=== PATIENT | female | born 1935 | race Caucasian/White ===

== ENCOUNTER 2018-09-14 15:03 | Inpatient (IN) | payer MEDICARE, OTHER ==
[~2018-09-14] VITALS: Ht 157.5 cm; Wt 72.7 kg
[~2018-09-14 15:03] MED LIST: ASPI-650; CARV25TA79; CYCL10TA7; DICL25TA; FOLI-49; METF100010; NIFE30TA; NIFE60TA18; SIMV20TA; VALS80TA2; [UNRECOGNIZED DRUG - CODE]
[2018-09-14] MEDS ORDERED: SODIUM CHLORIDE 0.9% 1L BAG IV* STA (15:10)
[2018-09-14] MEDS ORDERED: DILTIAZEM-D5W 125MG/125ML DRIP 125 ML IV STA (15:10)
[2018-09-14] MEDS ORDERED: CEFEPIME 2GM/50 ML (PMX) 50 ML IVPB STA (15:10)
[2018-09-14] MEDS ORDERED: ONDANSETRON 4 MG INJ IV STA (15:10)
[2018-09-14] MEDS ORDERED: ACETAMINOPHEN 325 MG TAB PO STA (15:10)
[2018-09-14] MEDS ORDERED: DILTIAZEM 25 MG INJ IV ONE (15:30)
[2018-09-14] MEDS ORDERED: VANCOMYCIN 1 GM (PMX) 250 ML IVPB ONE (15:30)
[2018-09-14] MEDS ORDERED: IBUPROFEN 800 MG TAB PO ONE (15:30)
--- NOTE | 2018-09-14 15:42 | ERD ---
ER Documentation Chief Complaint Chief Complaint pt kody from [facility] HPI This is an 82-year-old female was brought into the emergency department by EMS. The patient has a history of kxk-hcjnifc-wlbjxwvfj diabetes mellitus and hypertension. Over the past 2 days the patient had a productive cough generalized myalgias and difficulty breathing. She had a tactile fever with shaking and chills. She said no recent hospitalizations. She has no history of dementia and lives with her family. She is able to to attend her activities of daily living. She has not had any recent sick contacts. She has had increased frequency urgency and dysuria. Her vrimjpda-gu-vtn states that she is prone to frequent urinary tract infections. She denies any abdominal pain. She did experience palpitations just prior to arrival. She has had no chest pain or pressure. ROS All systems reviewed and are negative except as per history of present illness. Medications Home Meds Reported Medications Rosiglitazone Maleate* (Avandia*) 8 Mg Tablet 10/25/10 Cyclobenzaprine Hcl* (Cyclobenzaprine Hcl*) 10 Mg Tablet 10/25/10 Diclofenac Sodium* (Voltaren*) 25 Mg Tablet. 10/25/10 Carvedilol* (Carvedilol*) 25 Mg Tablet 10/25/10 Valsartan* (Diovan*) 80 Mg Tablet 10/25/10 Simvastatin* (Zocor*) 20 Mg Tablet 10/25/10 Folic Acid* (Folic Acid*) 1 Mg Tablet 10/25/10 Metformin Hcl* (Metformin Hcl*) 1,000 Mg Tablet 10/25/10 Nifedipine (Nifedipine XL) 30 Mg/Bottle Tab.osm.24 10/25/10 Aspirin (Aspirin) 81 Mg Tablet 10/25/10 Nifedipine* (Nifedipine ER*) 60 Mg Tablet.sa 10/25/10 Allergies Allergies: Coded Allergies: No Known Allergy (Verified Allergy, Unknown, 10/25/10) PMhx/Soc History of Surgery: Yes (HERNIA REPAIR 10 YRS) Anesthesia Reaction: No Hx Neurological Disorder: No Hx Respiratory Disorders: No Hx Cardiac Disorders: Yes (htn) Hx Psychiatric Problems: No Hx Miscellaneous Medical Probl: Yes (dm, uti) Hx Alcohol Use: No Hx Substance Use: No Hx Tobacco Use: No Smoking Status: Never smoker Physical Exam Vitals Vital Signs Date Temp Pulse Resp B/P (MAP) Pulse Ox O2 O2 Flow FiO2 Time Delivery Rate 09/14/18 102.3 15:37 09/14/18 102.3 15:37 09/14/18 115 27 116/84 98 Nasal 2.0 15:23 (95) Cannula 09/14/18 Nasal 2 15:16 Cannula 09/14/18 102.6 121 21 100/72 93 15:06 (81) Physical Exam Constitutional:Well-developed. Well-nourished. HEENT:Normocephalic. Atraumatic.Pupils were equal round reactive to light. Dry mucous membranes.No tonsillar exudates. Neck: No nuchal rigidity. No lymphadenopathy. No posterior cervical spine tenderness or step-offs. Respiratory: Not using accessory muscles of respiration.Lungs were clear to auscultation bilaterally. No rhonchi. No rales. No wheezing. Cardiovascular: Tachycardic with irregular regular rhythm..No murmurs. No rubs were appreciated.S1, S2 normal. Distal pulses are palpable 2+ bilaterally. GI: Abdomen was soft. Nontender. Non Distended. No pulsatile abdominal masses or bruits. No rebound. No guarding. Bowel sounds were present and normal. Muscle skeletal: Full range of motion of both the upper and lower extremities bilaterally.Normal muscle tone.No assymetrical calf tenderness or swelling. Skin: Warm to the touch. No petechia, no purpura. No lesions on the palms or the soles of the feet. No maculopapular rash. NEURO: Patient was alert, awake, orientated x3.No facial droop. Gait observed and normal with no ataxia.Speech had regular rate and rhythm. No focal neurological deficits. Result Diagram: 09/14/18 1533 09/14/18 1533 Results 24 hrs Laboratory Tests Test 09/14/18 15:33 09/14/18 15:34 White Blood Count 10.4 10^3/ul Red Blood Count 3.31 10^6/ul Hemoglobin 10.6 g/dl Hematocrit 32.3 % Mean Corpuscular Volume 97.6 fl Mean Corpuscular Hemoglobin 32.0 pg Mean Corpuscular Hemoglobin Concent 32.8 g/dl Red Cell Distribution Width 12.8 % Platelet Count 234 10^3/UL Mean Platelet Volume 8.8 fl Immature Granulocytes % 0.400 % Neutrophils % 83.8 % Lymphocytes % 9.2 % Monocytes % 6.5 % Eosinophils % 0.0 % Basophils % 0.1 % Nucleated Red Blood Cells % 0.0 /100WBC Immature Granulocytes # 0.040 10^3/ul Neutrophils # 8.7 10^3/ul Lymphocytes # 1.0 10^3/ul Monocytes # 0.7 10^3/ul Eosinophils # 0.0 10^3/ul Basophils # 0.0 10^3/ul Nucleated Red Blood Cells # 0.0 10^3/ul Prothrombin Time 13.9 Sec Prothrombin Time Ratio 1.1 INR International Normalized Ratio 1.06 Activated Partial Thromboplast Time 26.3 Sec Sodium Level 140 mmol/L Potassium Level 4.1 mmol/L Chloride Level 107 mmol/L Carbon Dioxide Level 23 mmol/L Anion Gap 10 Blood Urea Nitrogen 20 mg/dl Creatinine 0.84 mg/dl Est Glomerular Filtrat Rate mL/min mL/min Glucose Level 179 mg/dl Calcium Level 9.1 mg/dl Total Bilirubin 0.3 mg/dl Direct Bilirubin 0.00 mg/dl Indirect Bilirubin 0.3 mg/dl Aspartate Amino Transf (AST/SGOT) 26 IU/L Alanine Aminotransferase (ALT/SGPT) 11 IU/L Alkaline Phosphatase 78 IU/L Troponin I 0.066 ng/ml Total Protein 7.6 g/dl Albumin 3.8 g/dl Globulin 3.80 g/dl Albumin/Globulin Ratio 1.00 POC Venous Lactate 2.2 mmol/L Current Medications Medications Dose Sig/Desiree Start Time Status Last (Trade) Ordered Route PRN Stop Time Admin Dose Reason Admin Sodium 2,400 ml BOLUS OVER 2 09/14/18 DC 09/14/18 Chloride HOURS STAT 15:10 15:36 (NS) IV* 09/14/18 15:15 1,000 mg ONCE STAT 09/14/18 DC 09/14/18 Acetaminophen PO 15:10 15:37 (Tylenol 09/14/18 15:15 Tab) Ondansetron 4 mg ONCE STAT 09/14/18 DC 09/14/18 HCl (Zofran IV 15:10 15:38 Inj) 09/14/18 15:15 Cefepime HCl 50 ml @ ONCE STAT 09/14/18 DC 100 mls/hr IVPB 15:10 09/14/18 15:39 Vancomycin 250 ml @ ONCE ONCE 09/14/18 HCl 125 mls/hr IVPB 15:30 09/14/18 17:29 Ibuprofen 800 mg ONCE ONCE 09/14/18 DC 09/14/18 (Motrin) PO 15:30 15:37 09/14/18 15:31 Diltiazem 20 mg ONCE ONCE 09/14/18 DC 09/14/18 HCl IV 15:30 15:38 (Cardizem Iv) 09/14/18 15:31 Diltiazem 125 ml @ 5 ONCE STAT 09/14/18 HCl mls/hr IV 15:10 09/15/18 16:09 Procedures/MDM Patient's infectious symptoms have not stabilized and the patient is at risk of rapid decompensation. The patient will be admitted for careful hydration, antibiotic therapy, and infectious source control. Severe Sepsis Assessment: Infectious Source: pyleonephritis End organ damage indicated by: Lactate > 2.0 mmol/L Severe Sepsis Managment: Blood Cultures X 2 before broad spectrum antibiotics initiated within 3 hours of recognition. 30 ml/kg NS bolus Completed Initial Lactate: 2.2 Repeat Lactate pending I considered further perfusion assessment with CVP measurement, SCVO2, bedside ultrasound volume assessment, passive leg raise, trial of further fluid bolus. And preceded with IV fluids 12 Lead EKG tracing ordered and reviewed by myself showed: Tachycardic with irregular regular rhythm at 121 bpm and no arrhythmia. FL interval not appreciated as there were no P waves. QRS duration normal. No ST segment elevation No ST segment depression. No changes consistent with acute ischemia. The patient has no underlying history of atrial fibrillation. The patient was also febrile which could be contributing to her tachycardia with underlying sepsis. She did receive 20 mg of Cardizem intravenously and was placed on a Cardizem drip. A 1 view chest radiograph on reviewed by myself the radiologist indicate the following: Shallow lung volumes with bilateral interstitial prominence, suggestive of mild vascular congestion. Possible small left pleural effusion. Additional bibasilar opacities, left greater than right, which may represent atelectasis however pneumonia not excluded. Aortic atherosclerosis. The patient had artery received IV antibiotics for sepsis. The patient was also unable to provide a urine sample and therefore the family did agree to straight cath as her symptoms also were suggestive of a possible urinary tract infection. The patient will be admitted in serious condition to the hospitalist Dr. Gallo. Critical Care: Time: 70 minutes Treatments/Evaluations: Close monitoring and treatment of unstable vital signs, cardiorespiratory, and neurologic status, while maintaining tight balance of fluid, respiratory, and cardiac interventions. Time does not include performing any of the above billable procedures. Departure Diagnosis: Primary Impression: Atrial fibrillation with RVR Additional Impressions: Sepsis Sepsis type: sepsis due to unspecified organism Qualified Codes: A41.9 - Sepsis, unspecified organism Pneumonia Pneumonia type: due to unspecified organism Laterality: bilateral Lung location: unspecified part of lung Qualified Codes: J18.9 - Pneumonia, unspecified organism Condition: Serious MATTHEW BILL MD Sep 14, 2018 15:42
[2018-09-14] MEDS ORDERED: ONDANSETRON 4 MG INJ IV PRN ×2 (17:30→19:30)
[2018-09-14] MEDS ORDERED: ACETAMINOPHEN 325 MG TAB PO PRN ×2 (17:30→19:30)
[2018-09-14] MEDS ORDERED: SOD CHLORIDE 0.9% 1,000 ML IV STA (18:31)
[2018-09-14] MEDS: SOD CHLORIDE 0.9% 1,000 ML IV SCH (19:11)
--- NOTE | 2018-09-14 19:11 | HP ---
Date/Time of Note Date/Time of Note DATE: 09/14/18 TIME: 19:06 Assessment/Plan VTE Prophylaxis Pharmacological prophylaxis: LMWH Lines/Catheters IV Catheter Type (from Nrs): [facility] Assessment/Plan Hospital Course 1. A. fib with RVR-resolved Patient is status post Cardizem drip with resolution Monitor in telemetry History of arrhythmia A. fib likely secondary to stress from sepsis 2D echo 2. Sepsis with fever, tachycardia and hypotension secondary to UTI and or pneumonia Rocephin and azithromycin Follow-up cultures IV fluids 3. Normocytic anemia likely secondary chronic disease Monitor 4. Diabetes Schedule insulin and sliding scale 5. History hypertension BP currently low secondary to sepsis, hold home meds Prophylaxis: Lovenox Result Diagram: 09/14/18 1533 09/14/18 1533 Results 24hrs Laboratory Tests Test 09/14/18 15:33 09/14/18 15:34 09/14/18 17:17 09/14/18 17:49 White Blood Count 10.4 Red Blood Count 3.31 L Hemoglobin 10.6 L Hematocrit 32.3 L Mean Corpuscular 97.6 Volume Mean Corpuscular 32.0 Hemoglobin Mean Corpuscular 32.8 Hemoglobin Concen t Red Cell 12.8 Distribution Width Platelet Count 234 Mean Platelet 8.8 Volume Immature 0.400 Granulocytes % Neutrophils % 83.8 H Lymphocytes % 9.2 L Monocytes % 6.5 Eosinophils % 0.0 Basophils % 0.1 Nucleated Red 0.0 Blood Cells % Immature 0.040 H Granulocytes # Neutrophils # 8.7 H Lymphocytes # 1.0 Monocytes # 0.7 Eosinophils # 0.0 Basophils # 0.0 Nucleated Red 0.0 Blood Cells # Prothrombin Time 13.9 Prothrombin Time 1.1 Ratio INR International 1.06 Normalized Ratio Activated 26.3 Partial Thrombopl ast Time Sodium Level 140 Potassium Level 4.1 Chloride Level 107 Carbon Dioxide 23 Level Anion Gap 10 Blood Urea 20 Nitrogen Creatinine 0.84 Est Glomerular Filtrat Rate mL/min Glucose Level 179 Calcium Level 9.1 Total Bilirubin 0.3 Direct Bilirubin 0.00 Indirect 0.3 Bilirubin Aspartate Amino 26 Transf (AST/SGOT) Alanine 11 L Aminotransferase (ALT/SGPT) Alkaline 78 Phosphatase Troponin I 0.066 Total Protein 7.6 Albumin 3.8 Globulin 3.80 H Albumin/Globulin 1.00 Ratio POC Venous 2.2 *H 1.6 Lactate Urine Color YELLOW Urine Clarity SLIGHTLY CLOUDY A Urine pH 5.0 Urine Specific 1.019 [place] Urine Ketones NEGATIVE Urine Nitrite NEGATIVE Urine Bilirubin NEGATIVE Urine 1+ H Urobilinogen Urine Leukocyte 2+ H Esterase Urine Microscopic 9 H RBC Urine Microscopic 49 H WBC Urine Squamous FEW Epithelial Cells Urine Mucus FEW A Urine Hemoglobin 1+ H Urine Glucose NEGATIVE Urine Total 1+ H Protein HPI/ROS Admit Date/Time Admit Date/Time September 14, 2018 Hx of Present Illness Patient is an 82-year-old female history of yut-wvmsyib-vprszisci diabetes, hypertension, patient presents with several weeks of cough and pleuritic chest pain, [place] developed shortness of breath. Patient came to the ER where she was found to be in A. fib with RVR, patient was started on Cardizem and patient converted to sinus rhythm. Chest x- ray shows possible pneumonia UA is positive but patient denies dysuria or frequency. Patient reports flank symptoms the past several weeks patient has no other complaints at this time and shortness of breath has improved. ROS Constitutional: no complaints, improved Eyes: no complaints ENT: no complaints Respiratory: no complaints, shortness of breath Gastrointestinal: no complaints Genitourinary: no complaints Musculoskeletal: no complaints Skin: no complaints Neurologic: no complaints Endocrine: no complaints Lymphatic: no complaints Psychological: no complaints, nl mood/affect Immunologic: no complaints PMH/Family/Social Past Medical History Diabetes, hypertension Medications Current Medications Diltiazem HCl 125 ml @ 5 mls/hr ONCE STAT IV ; Start 09/14/18 at 15:10; Stop 09/15/18 at 16:09 Ondansetron HCl (Zofran Inj) 4 mg ER BRIDGE PRN IV NAUSEA/VOMITING; Start 09/14/18 at 17:30; Stop 09/15/18 at 17:29 Acetaminophen (Tylenol Tab) 650 mg ER BRIDGE PRN PO .MILD PAIN 1-3 OR TEMP; Start 09/14/18 at 17:30; Stop 09/15/18 at 17:29 Sodium Chloride 1,000 ml @ 1,000 mls/hr Q1H STAT IV Last administered on 09/14/18at 18:36; Admin Dose 1,000 MLS/HR; Start 09/14/18 at 18:31; Stop 09/14/18 at 19:30 Coded Allergies: No Known Allergy (Verified Allergy, Unknown, 10/25/10) Past Surgical History Hernia surgery Family History Significant Family History: no pertinent family hx Social History Alcohol Use: rarely Smoking Status: Never smoker Drug Use: none Exam/Review of Systems Vital Signs Vitals Vital Signs Date Temp Pulse Resp B/P (MAP) Pulse Ox O2 O2 Flow FiO2 Time Delivery Rate 09/14/18 98.9 79 25 86/49 (61) 97 Nasal 18:41 Cannula 09/14/18 2.0 17:19 Exam Constitutional: alert, oriented Respiratory: clear to auscultation Cardiovascular: regular rate and rhythm Gastrointestinal: soft; No distended Musculoskeletal: nl extremities to inspection HAYLEY ARREDONDO Sep 14, 2018 19:11
[2018-09-14] MEDS ORDERED: CEFTRIAXONE 1 GM/50 ML (PMX) 50 ML IVPB SCH (19:30)
[2018-09-14] MEDS ORDERED: DOCUSATE SODIUM 100 MG CAP PO PRN (19:30)
[2018-09-14] MEDS ORDERED: NACL 0.9% 3 ML SYG IV SCH (19:30)
[2018-09-14] MEDS ORDERED: AZITHROMYCIN 500MG/NS (PMX) 250 ML IVPB SCH (20:00)
[2018-09-14 21:12] VITALS: PULSE 68
[2018-09-14 21:13] VITALS: Ht 157.5 cm; Wt 72.7 kg
[2018-09-14 21:37] VITALS: BP 116/67; PULSE 67; RESP 22
[2018-09-14] MEDS: HYDROCODONE/APAP (5/325) TAB PO PRN (22:07)
[2018-09-14 23:12] VITALS: PULSE 66
[2018-09-14] MEDS: INSULIN ASPART [NOVOLOG] 3 ML PEN SC SCH (23:28)
[2018-09-14] MEDS: morphine 2 MG INJ IV PRN (23:33)
[2018-09-14] MEDS ORDERED: ALBUTEROL/IPRATROPIUM (NEB) 3 ML AMP HHN STA (23:46)
[2018-09-15] VITALS (55 sets, daily range): BP systolic 52–136; BP diastolic 35–105; PULSE 47–82; RESP 13–27
[2018-09-15] MEDS ORDERED: NITROGLYCERIN (SL) 0.4 MG TAB SL PRN
[2018-09-15] MEDS ORDERED: SOD CHLORIDE 0.9% 500 ML IV ONE
[2018-09-15] MEDS ORDERED: ALBUTEROL/IPRATROPIUM (NEB) 3 ML AMP HHN PRN ×2
[2018-09-15] MEDS ORDERED: NA BICARBONATE 8.4% 50 ML SYG IV STA ×2 (00:06→12:37)
[2018-09-15] MEDS ORDERED: PIPER-TAZO 3.375 GM IV (PMX) 100 ML IVPB SCH (00:30)
[2018-09-15] MEDS: PIPER-TAZO 2.25 GM/NS 50 ML IVPB SCH ×4 (00:33→17:37)
[2018-09-15] MEDS: ALBUTEROL/IPRATROPIUM (NEB) 3 ML AMP HHN SCH ×4 (01:20→20:56)
[2018-09-15] MEDS: ACCU-CHEK XX SCH (01:41)
[2018-09-15] MEDS ORDERED: HEPARIN 25000 UNITS/250 ML 250 ML IV SCH (02:00)
[2018-09-15] MEDS ORDERED: METHYLPREDNISOLONE 125 MG INJ IV ONE (02:00)
[2018-09-15] MEDS ORDERED: HEPARIN 1000 UNITS/ML 10 ML INJ IV PRN (02:00)
[2018-09-15] MEDS ORDERED: INSULIN ASPART [NOVOLOG] 3 ML PEN SC ONE (02:00)
[2018-09-15] MEDS ORDERED: HEPARIN 1000 UNITS/ML 10 ML INJ IV ONE (02:00)
[2018-09-15] MEDS ORDERED: HEPARIN 25000 UNITS/250 ML 250 ML ONE (02:06)
--- NOTE | 2018-09-15 02:08 | PN ---
Date/Time of Note Date/Time of Note DATE: 09/15/18 TIME: 02:08 Assessment/Plan VTE Prophylaxis Pharmacological prophylaxis: other Lines/Catheters IV Catheter Type (from [facility]): Peripheral IV Urinary Cath still in place: No Assessment/Plan Hospital Course Notified by nurse patient had some chest pain and shortness of breath. Trop onin, EKG, chest x-ray was done. Patient also reported to be hypotensive, small bolus given. Troponin was positive, heparin drip started. Recommending cardiology consult in the a.m. .nitro as needed and tolerated Chest x-ray did show some signs of worsening edema which could be the cause of patient's shortness of breath, however patient's lactic acid jumped up to 7.9 likely due to hypotension (sbp 80's) with evidence of pneumonia, patient's creatinine also worsened, BNP is elevated. We will need to monitor respiratory status and be given 1 dose of steroids to help with wheezing as well as initiating breathing treatments. At this time will continue very gentle hydration as patient's hypotension will need to be addressed first. Patient on simple mask. Result Diagram: 09/14/18 1533 09/15/18 0053 Results 24hrs Laboratory Tests Test 09/14/18 15:33 09/14/18 15:34 09/14/18 17:17 09/14/18 17:49 White Blood Count 10.4 Red Blood Count 3.31 L Hemoglobin 10.6 L Hematocrit 32.3 L Mean Corpuscular 97.6 Volume Mean Corpuscular 32.0 Hemoglobin Mean Corpuscular 32.8 Hemoglobin Concen t Red Cell 12.8 Distribution Width Platelet Count 234 Mean Platelet 8.8 Volume Immature 0.400 Granulocytes % Neutrophils % 83.8 H Lymphocytes % 9.2 L Monocytes % 6.5 Eosinophils % 0.0 Basophils % 0.1 Nucleated Red 0.0 Blood Cells % Immature 0.040 H Granulocytes # Neutrophils # 8.7 H Lymphocytes # 1.0 Monocytes # 0.7 Eosinophils # 0.0 Basophils # 0.0 Nucleated Red 0.0 Blood Cells # Prothrombin Time 13.9 Prothrombin Time 1.1 Ratio INR International 1.06 Normalized Ratio Activated 26.3 Partial Thrombopl ast Time Sodium Level 140 Potassium Level 4.1 Chloride Level 107 Carbon Dioxide 23 Level Anion Gap 10 Blood Urea 20 Nitrogen Creatinine 0.84 Est Glomerular Filtrat Rate mL/min Glucose Level 179 Calcium Level 9.1 Total Bilirubin 0.3 Direct Bilirubin 0.00 Indirect 0.3 Bilirubin Aspartate Amino 26 Transf (AST/SGOT) Alanine 11 L Aminotransferase (ALT/SGPT) Alkaline 78 Phosphatase Troponin I 0.066 Total Protein 7.6 Albumin 3.8 Globulin 3.80 H Albumin/Globulin 1.00 Ratio POC Venous 2.2 *H 1.6 Lactate Urine Color YELLOW Urine Clarity SLIGHTLY CLOUDY A Urine pH 5.0 Urine Specific 1.019 [place] Urine Ketones NEGATIVE Urine Nitrite NEGATIVE Urine Bilirubin NEGATIVE Urine 1+ H Urobilinogen Urine Leukocyte 2+ H Esterase Urine Microscopic 9 H RBC Urine Microscopic 49 H WBC Urine Squamous FEW Epithelial Cells Urine Mucus FEW A Urine Hemoglobin 1+ H Urine Glucose NEGATIVE Urine Total 1+ H Protein Test 09/14/18 19:48 09/14/18 22:12 09/14/18 23:37 09/15/18 00:53 Lactic Acid Level 1.2 7.9 *H Bedside Glucose 199 Blood Gas Blood arterial Specimen Source Arterial Blood 09/14/2018 11:43: Date Drawn 22 PM Arterial Blood pH 6.996 *L (Temp corrected) Arterial Blood 42.0 pCO2 (Temp correct) Arterial Blood 113.2 H pO2 (Temp corrected) Arterial Blood 10.0 L HCO3 Arterial Blood -20.5 L Base Excess Arterial Blood 95.1 Oxygen Saturation Aroldo Test ACCEPTAB Arterial Blood Right Radial Gas Puncture Site Arterial 0.2 Blood Carboxyhemo globin Arterial Blood 0.1 Methemoglobin Blood Gas A-a O2 275.6 H Differential Oxyhemoglobin 94.8 Percent Blood Gas 37.0 Temperature Blood Gas Actual 32 Respiration Rate Blood Gas MASK - SIMPLE Modality FiO2 61.0 Blood Gas SAGE.D,R.N. Critical Value Read Back Blood Gas LÓPEZ CAREY Notified Whom Blood Gas 09/14/2018 11:57: Notified Time 06 PM Sodium Level 144 Potassium Level 4.8 Chloride Level 112 H Carbon Dioxide 19 L Level Anion Gap 13 Blood Urea 23 H Nitrogen Creatinine 1.22 H Est Glomerular Filtrat Rate mL/min Glucose Level 300 H Calcium Level 7.7 L Total Bilirubin 0.2 Direct Bilirubin 0.00 Indirect 0.2 Bilirubin Aspartate Amino 65 H Transf (AST/SGOT) Alanine 52 Aminotransferase (ALT/SGPT) Alkaline 77 Phosphatase Troponin I 1.790 *H B-Type 71160 H Natriuretic Peptide Total Protein 5.2 #L Albumin 2.5 #L Globulin 2.70 Albumin/Globulin 0.92 Ratio Test 09/15/18 01:40 Bedside Glucose 328 H Exam/Review of Systems Exam Vitals Vital Signs Date Temp Pulse Resp B/P (MAP) Pulse Ox O2 O2 Flow FiO2 Time Delivery Rate 09/15/18 95 61 01:14 09/15/18 10.0 01:10 09/15/18 98.6 68 19 124/71 01:00 (88) 09/14/18 Nasal 22:00 Cannula Intake and Output 09/14/18 09/14/18 09/15/18 1515:00 23:00 07:00 IntakeIntake Total 50 ml BalanceBalance 50 ml Results Results 24hrs Laboratory Tests Test 09/14/18 15:33 09/14/18 15:34 09/14/18 17:17 09/14/18 17:49 White Blood Count 10.4 Red Blood Count 3.31 L Hemoglobin 10.6 L Hematocrit 32.3 L Mean Corpuscular 97.6 Volume Mean Corpuscular 32.0 Hemoglobin Mean Corpuscular 32.8 Hemoglobin Concen t Red Cell 12.8 Distribution Width Platelet Count 234 Mean Platelet 8.8 Volume Immature 0.400 Granulocytes % Neutrophils % 83.8 H Lymphocytes % 9.2 L Monocytes % 6.5 Eosinophils % 0.0 Basophils % 0.1 Nucleated Red 0.0 Blood Cells % Immature 0.040 H Granulocytes # Neutrophils # 8.7 H Lymphocytes # 1.0 Monocytes # 0.7 Eosinophils # 0.0 Basophils # 0.0 Nucleated Red 0.0 Blood Cells # Prothrombin Time 13.9 Prothrombin Time 1.1 Ratio INR International 1.06 Normalized Ratio Activated 26.3 Partial Thrombopl ast Time Sodium Level 140 Potassium Level 4.1 Chloride Level 107 Carbon Dioxide 23 Level Anion Gap 10 Blood Urea 20 Nitrogen Creatinine 0.84 Est Glomerular Filtrat Rate mL/min Glucose Level 179 Calcium Level 9.1 Total Bilirubin 0.3 Direct Bilirubin 0.00 Indirect 0.3 Bilirubin Aspartate Amino 26 Transf (AST/SGOT) Alanine 11 L Aminotransferase (ALT/SGPT) Alkaline 78 Phosphatase Troponin I 0.066 Total Protein 7.6 Albumin 3.8 Globulin 3.80 H Albumin/Globulin 1.00 Ratio POC Venous 2.2 *H 1.6 Lactate Urine Color YELLOW Urine Clarity SLIGHTLY CLOUDY A Urine pH 5.0 Urine Specific 1.019 [place] Urine Ketones NEGATIVE Urine Nitrite NEGATIVE Urine Bilirubin NEGATIVE Urine 1+ H Urobilinogen Urine Leukocyte 2+ H Esterase Urine Microscopic 9 H RBC Urine Microscopic 49 H WBC Urine Squamous FEW Epithelial Cells Urine Mucus FEW A Urine Hemoglobin 1+ H Urine Glucose NEGATIVE Urine Total 1+ H Protein Test 09/14/18 19:48 09/14/18 22:12 09/14/18 23:37 09/15/18 00:53 Lactic Acid Level 1.2 7.9 *H Bedside Glucose 199 Blood Gas Blood arterial Specimen Source Arterial Blood 09/14/2018 11:43: Date Drawn 22 PM Arterial Blood pH 6.996 *L (Temp corrected) Arterial Blood 42.0 pCO2 (Temp correct) Arterial Blood 113.2 H pO2 (Temp corrected) Arterial Blood 10.0 L HCO3 Arterial Blood -20.5 L Base Excess Arterial Blood 95.1 Oxygen Saturation Aroldo Test ACCEPTAB Arterial Blood Right Radial Gas Puncture Site Arterial 0.2 Blood Carboxyhemo globin Arterial Blood 0.1 Methemoglobin Blood Gas A-a O2 275.6 H Differential Oxyhemoglobin 94.8 Percent Blood Gas 37.0 Temperature Blood Gas Actual 32 Respiration Rate Blood Gas MASK - SIMPLE Modality FiO2 61.0 Blood Gas SAGE.D,R.N. Critical Value Read Back Blood Gas LÓPEZ CAREY Notified Whom Blood Gas 09/14/2018 11:57: Notified Time 06 PM Sodium Level 144 Potassium Level 4.8 Chloride Level 112 H Carbon Dioxide 19 L Level Anion Gap 13 Blood Urea 23 H Nitrogen Creatinine 1.22 H Est Glomerular Filtrat Rate mL/min Glucose Level 300 H Calcium Level 7.7 L Total Bilirubin 0.2 Direct Bilirubin 0.00 Indirect 0.2 Bilirubin Aspartate Amino 65 H Transf (AST/SGOT) Alanine 52 Aminotransferase (ALT/SGPT) Alkaline 77 Phosphatase Troponin I 1.790 *H B-Type 26504 H Natriuretic Peptide Total Protein 5.2 #L Albumin 2.5 #L Globulin 2.70 Albumin/Globulin 0.92 Ratio Test 09/15/18 01:40 Bedside Glucose 328 H Medications Medication Current Medications Diltiazem HCl 125 ml @ 5 mls/hr ONCE STAT IV ; Start 09/14/18 at 15:10; Stop 09/15/18 at 16:09 Ondansetron HCl (Zofran Inj) 4 mg ER BRIDGE PRN IV NAUSEA/VOMITING; Start 09/14/18 at 17:30; Stop 09/15/18 at 17:29 Acetaminophen (Tylenol Tab) 650 mg ER BRIDGE PRN PO .MILD PAIN 1-3 OR TEMP; Start 09/14/18 at 17:30; Stop 09/15/18 at 17:29 Sodium Chloride 1,000 ml @ 60 mls/hr [id number] IV Last administered on 09/14/18at 19:11; Admin Dose 60 MLS/HR; Start 09/14/18 at 19:11 IV Flush (NS 3 ml) 3 ml PER PROTOCOL IV ; Start 09/14/18 at 19:30 Ondansetron HCl (Zofran Inj) 4 mg Q6H PRN IV NAUSEA/VOMITING; Start 09/14/18 at 19:30 Acetaminophen (Tylenol Tab) 650 mg Q6H PRN PO .PAIN 1-3 OR TEMP; Start 09/14/18 at 19:30 Acetaminophen/ Hydrocodone Bitart ([place] (5/325)) 1 tab Q6H PRN PO .MOD PAIN 4- 6 Last administered on 09/14/18at 22:07; Admin Dose 1 TAB; Start 09/14/18 at 19:30 Morphine Sulfate (morphine) 2 mg Q4H PRN IV .SEVERE PAIN 7-10 Last administered on 09/14/18at 23:33; Admin Dose 2 MG; Start 09/14/18 at 19:30 Docusate Sodium (Colace) 100 mg Q12H PRN PO .CONSTIPATION; Start 09/14/18 at 19:30 Zolpidem Tartrate (Ambien) 5 mg QHS PRN PO .INSOMNIA; Start 09/14/18 at 19:30 Aspirin (Aspirin) 81 mg DAILY PO ; Start 09/15/18 at 09:00 Diagnostic Test (Pha) (Accu-Chek) 1 ea 02 XX Last administered on 09/15/18at 01:41; Admin Dose 1 EA; Start 09/15/18 at 02:00 Insulin Aspart (Novolog Insulin Pen) NOVOLOG *MILD* ALGORITHM WITH MEALS BEDTIME SC Last administered on 09/14/18at 23:28; Admin Dose 1 UNIT; Start 09/14/18 at 21:00 Budesonide (Pulmicort (Neb)) 0.5 mg BID RESP THERAPY HHN ; Start 09/15/18 at 09:00 Albuterol/ Ipratropium (Duoneb) 3 ml Q2H RESP THERAPY PRN HHN shortness of breath; Start 09/15/18 at 00:00 Albuterol/ Ipratropium (Duoneb) 3 ml Q6H RESP THERAPY HHN Last administered on 09/15/18at 01:20; Admin Dose 3 ML; Start 09/15/18 at 02:00 Nitroglycerin (Nitroglycerin (Sl Tab) 0.4 Mg) 1 tab Q5M PRN SL ANGINA; Start 09/15/18 at 00:00 Piperacillin Sod/ Tazobactam Sod 50 ml @ 100 mls/hr Q6 IVPB Last administered on 09/15/18at 00:33; Admin Dose 100 MLS/HR; Start 09/15/18 at 00:16 Miscellaneous Information (* Miscellaneous Pharmacy Order) DC previous hepa... ONCE ONCE XX ; Start 09/15/18 at 02:00; Stop 09/15/18 at 02:01 Heparin Sodium (Porcine) (Heparin (1000 Units/ml)) 4,000 unit ONCE ONCE IV ; Start 09/15/18 at 02:00; Stop 09/15/18 at 02:01 Heparin Sodium (Porcine) (Heparin (1000 Units/ml)) 4,000 unit PER PROTOCOL PRN IV aPTT<47; Start 09/15/18 at 02:00; Status UNV Heparin Sodium (Porcine) 250 ml @ 0 mls/hr PER PROTOCOL IV ; Start 09/15/18 at 02:00; Status UNV Methylprednisolone Sodium Succinate (Solu-Medrol) 125 mg ONCE ONCE IV ; Start 09/15/18 at 02:00; Stop 09/15/18 at 02:01; Status UNV ALEX HYLTON Sep 15, 2018 02:08
[2018-09-15] MEDS ORDERED: SOD CHLORIDE 0.9% 1,000 ML IV ONE (04:00)
--- NOTE | 2018-09-15 05:34 | QN ---
Documentation Comment I was called to evaluate the patient and possible central line placement s econdary to low blood pressure in ICU 115. Upon arrival patient's blood pressure 60/40. Patient's family is consented to procedure and all risks and benefits were explained. Central Line Placement by me: Patient consented, sterilely draped, full prep, gown, glove, mask, time out performed. Anesthesia: 1% lidocaine locally Location: Central Line Placement by me: Patient consented, sterilely draped, full prep, gown, glove, mask, time out performed. Anesthesia: 1% lidocaine locally Location: Left subclavian Device: Multiple lumen Technique: Seldinger technique. Secured with suture. Results: Venous return from all ports with easy saline flush. No complications. Guide wire retrieved and disposed of. [Chest X-ray 1V Interpreted by me: Central line in SVC, Normal soft tissue, No evidence of pneumothorax.] KATY CRAWLEY Sep 15, 2018 05:34
[2018-09-15] MEDS: SOD CHLORIDE 0.9% 1,000 ML IV SCH (06:00)
[2018-09-15] MEDS: INSULIN ASPART [NOVOLOG] 3 ML PEN SC SCH ×4 (07:48→20:24)
[2018-09-15] MEDS ORDERED: ALBUTEROL/IPRATROPIUM (NEB) 3 ML AMP HHN SCH (08:00)
[2018-09-15] MEDS: ASPIRIN 81 MG TAB PO SCH (09:00)
[2018-09-15] MEDS ORDERED: ENOXAPARIN 40 MG/0.4 ML SYG SC SCH (09:00)
[2018-09-15] MEDS: BUDESONIDE (NEB) 0.5MG/2ML AMP HHN SCH ×2 (09:59→20:56)
[2018-09-15] MEDS: morphine 2 MG INJ IV PRN ×2 (11:21→11:59)
[2018-09-15] MEDS ORDERED: MAGNESIUM SULFATE 2 GM/50 ML 50 ML IVPB ONE (11:30)
--- NOTE | 2018-09-15 12:01 | PN ---
Date/Time of Note Date/Time of Note DATE: 09/15/18 TIME: 11:57 Assessment/Plan VTE Prophylaxis Risk score (from [facility])>0 risk: 9 SCD applied (from [facility]): Yes Pharmacological prophylaxis: heparin Lines/Catheters Urinary Cath still in place: No Assessment/Plan Hospital Course 1. A. fib with RVR-resolved Patient is status post Cardizem drip with conversion back to sinus and subsequent junctional rhythm Patient now in sinus rhythm Monitor in telemetry No history of arrhythmia A. fib likely secondary to stress from sepsis 2D echo pending Cardiology consultation obtained 2. Sepsis with fever, tachycardia and hypotension secondary to UTI and or pneumonia Rocephin and azithromycin Follow-up cultures IV fluids 3. Non-STEMI Troponins have slightly increased Cardiology consultation obtained Continue heparin drip 4. Diabetes-sugars currently elevated Start Lantus, continue sliding scale A1c at 5.7 5. History hypertension BP currently low secondary to sepsis, hold home meds 6. Normocytic anemia likely secondary chronic disease Monitor Prophylaxis: Heparin DC planning: Not stable for DC Result Diagram: 09/15/18 0507 09/15/18 0507 Results 24hrs Laboratory Tests Test 09/14/18 15:33 09/14/18 15:34 09/14/18 17:17 09/14/18 17:49 White Blood 10.4 Count Red Blood Count 3.31 L Hemoglobin 10.6 L Hematocrit 32.3 L Mean Corpuscular 97.6 Volume Mean Corpuscular 32.0 Hemoglobin Mean Corpuscular 32.8 Hemoglobin Myrna nt Red Cell 12.8 Distribution Width Platelet Count 234 Mean Platelet 8.8 Volume Immature 0.400 Granulocytes % Neutrophils % 83.8 H Lymphocytes % 9.2 L Monocytes % 6.5 Eosinophils % 0.0 Basophils % 0.1 Nucleated Red 0.0 Blood Cells % Immature 0.040 H Granulocytes # Neutrophils # 8.7 H Lymphocytes # 1.0 Monocytes # 0.7 Eosinophils # 0.0 Basophils # 0.0 Nucleated Red 0.0 Blood Cells # Prothrombin Time 13.9 Prothrombin Time 1.1 Ratio INR 1.06 International Normalized Ratio Activated 26.3 Partial Thrombop last Time Sodium Level 140 Potassium Level 4.1 Chloride Level 107 Carbon Dioxide 23 Level Anion Gap 10 Blood Urea 20 Nitrogen Creatinine 0.84 Est Glomerular Filtrat Rate mL/min Glucose Level 179 Calcium Level 9.1 Total Bilirubin 0.3 Direct Bilirubin 0.00 Indirect 0.3 Bilirubin Aspartate Amino 26 Transf (AST/SGOT ) Alanine 11 L Aminotransferase (ALT/SGPT) Alkaline 78 Phosphatase Troponin I 0.066 Total Protein 7.6 Albumin 3.8 Globulin 3.80 H Albumin/Globulin 1.00 Ratio POC Venous 2.2 *H 1.6 Lactate Urine Color YELLOW Urine Clarity SLIGHTLY CLOUDY A Urine pH 5.0 Urine Specific 1.019 [place] Urine Ketones NEGATIVE Urine Nitrite NEGATIVE Urine Bilirubin NEGATIVE Urine 1+ H Urobilinogen Urine Leukocyte 2+ H Esterase Urine 9 H Microscopic RBC Urine 49 H Microscopic WBC Urine Squamous FEW Epithelial Cells Urine Mucus FEW A Urine Hemoglobin 1+ H Urine Glucose NEGATIVE Urine Total 1+ H Protein Test 09/14/18 19:48 09/14/18 22:12 09/14/18 23:37 09/15/18 00:53 Lactic Acid 1.2 7.9 *H Level Bedside Glucose 199 Blood Gas Blood arterial Specimen Source Arterial Blood 09/14/2018 11:43 Date Drawn :22 PM Arterial Blood 6.996 *L pH (Temp corrected) Arterial Blood 42.0 pCO2 (Temp correct) Arterial Blood 113.2 H pO2 (Temp corrected) Arterial Blood 10.0 L HCO3 Arterial Blood -20.5 L Base Excess Arterial Blood 95.1 Oxygen Saturatio n Aroldo Test ACCEPTAB Arterial Blood Right Radial Gas Puncture Site Arterial 0.2 Blood Carboxyhem oglobin Arterial Blood 0.1 Methemoglobin Blood Gas A-a O2 275.6 H Differential Oxyhemoglobin 94.8 Percent Blood Gas 37.0 Temperature Blood Gas Actual 32 Respiration Rate Blood Gas MASK - SIMPLE Modality FiO2 61.0 Blood Gas SAGE.D,R.N. Critical Value Read Back Blood Gas LÓPEZ CAREY Notified Whom Blood Gas 09/14/2018 11:57 Notified Time :06 PM Sodium Level 144 Potassium Level 4.8 Chloride Level 112 H Carbon Dioxide 19 L Level Anion Gap 13 Blood Urea 23 H Nitrogen Creatinine 1.22 H Est Glomerular Filtrat Rate mL/min Glucose Level 300 H Calcium Level 7.7 L Total Bilirubin 0.2 Direct Bilirubin 0.00 Indirect 0.2 Bilirubin Aspartate Amino 65 H Transf (AST/SGOT ) Alanine 52 Aminotransferase (ALT/SGPT) Alkaline 77 Phosphatase Troponin I 1.790 *H B-Type 94516 H Natriuretic Peptide Total Protein 5.2 #L Albumin 2.5 #L Globulin 2.70 Albumin/Globulin 0.92 Ratio Test 09/15/18 01:15 09/15/18 01:40 09/15/18 02:16 09/15/18 05:07 Blood Gas Blood arterial Specimen Source Arterial Blood 09/15/2018 2:12: Date Drawn 05 AM Arterial Blood 7.261 *L pH (Temp corrected) Arterial Blood 35.2 pCO2 (Temp correct) Arterial Blood 99.6 H pO2 (Temp corrected) Arterial Blood 15.5 L HCO3 Arterial Blood -10.6 L Base Excess Arterial Blood 96.0 Oxygen Saturatio n Aroldo Test ACCEPTAB Arterial Blood Right Radial Gas Puncture Site Arterial 0.2 Blood Carboxyhem oglobin Arterial Blood 0.3 Methemoglobin Blood Gas A-a O2 296.7 H Differential Oxyhemoglobin 95.5 Percent Blood Gas 37.0 Temperature Blood Gas Actual 32 Respiration Rate Blood Gas SIMPLE MASK Modality FiO2 61.0 Blood Gas Silvia SAGE RN Critical Value Read Back Blood Gas Notified Whom Blood Gas 09/15/2018 2:34: Notified Time 32 AM Bedside Glucose 328 H White Blood 13.0 #H 10.4 Count Red Blood Count 3.02 L 3.01 L Hemoglobin 9.7 L 9.9 L Hematocrit 30.9 L 31.7 L Mean Corpuscular 102.3 H 105.3 H Volume Mean Corpuscular 32.1 32.9 Hemoglobin Mean Corpuscular 31.4 L 31.2 L Hemoglobin Myrna nt Red Cell 13.2 13.2 Distribution Width Platelet Count 192 167 Mean Platelet 9.4 9.6 Volume Immature 0.900 H 0.600 H Granulocytes % Neutrophils % 77.4 H 80.1 H Lymphocytes % 14.3 L 13.7 L Monocytes % 7.2 5.5 Eosinophils % 0.0 0.0 Basophils % 0.2 0.1 Nucleated Red 0.0 0.0 Blood Cells % Immature 0.120 H 0.060 H Granulocytes # Neutrophils # 10.0 H 8.3 H Lymphocytes # 1.9 1.4 Monocytes # 0.9 0.6 Eosinophils # 0.0 0.0 Basophils # 0.0 0.0 Nucleated Red 0.0 0.0 Blood Cells # Prothrombin Time 17.7 #H Prothrombin Time 1.4 Ratio INR 1.45 International Normalized Ratio Activated 28.9 Partial Thrombop last Time Sodium Level 143 Potassium Level 5.0 Chloride Level 109 Carbon Dioxide 16 L Level Anion Gap 18 H Blood Urea 22 H Nitrogen Creatinine 1.47 H Est Glomerular Filtrat Rate mL/min Glucose Level 264 H Hemoglobin A1c 5.7 Calcium Level 7.3 L Phosphorus Level 4.8 Magnesium Level 1.8 Troponin I 1.990 *H Triglycerides 69 Level Cholesterol 71 L Level LDL Cholesterol, 28 Calculated HDL Cholesterol 29 L Cholesterol/HDL 2.4 Ratio Free Thyroxine 3.62 Index Thyroxine (T4) 6.9 Triiodothyronine 52.5 H (T3) Uptake Test 09/15/18 07:45 09/15/18 08:22 09/15/18 10:41 09/15/18 11:29 Bedside Glucose 236 H 261 H Activated 126.1 *H Partial Thrombop last Time Lactic Acid 2.9 *H Level Troponin I 3.400 *H Subjective 24 Hr Interval Summary Constitutional: no complaints Exam/Review of Systems Exam Vitals Vital Signs Date Temp Pulse Resp B/P (MAP) Pulse Ox O2 O2 Flow FiO2 Time Delivery Rate 09/15/18 68 23 123/70 95 Non 11:00 (87) Rebreather 09/15/18 15.0 08:15 09/15/18 97.8 08:00 09/15/18 61 01:30 Intake and Output 09/14/18 09/14/18 09/15/18 1414:59 22:59 06:59 IntakeIntake Total 50 ml 1050 ml BalanceBalance 50 ml 1050 ml Constitutional: alert Respiratory: clear to auscultation Cardiovascular: regular rate and rhythm Gastrointestinal: soft; No distended Musculoskeletal: nl extremities to inspection Results Results 24hrs Laboratory Tests Test 09/14/18 15:33 09/14/18 15:34 09/14/18 17:17 09/14/18 17:49 White Blood 10.4 Count Red Blood Count 3.31 L Hemoglobin 10.6 L Hematocrit 32.3 L Mean Corpuscular 97.6 Volume Mean Corpuscular 32.0 Hemoglobin Mean Corpuscular 32.8 Hemoglobin Myrna nt Red Cell 12.8 Distribution Width Platelet Count 234 Mean Platelet 8.8 Volume Immature 0.400 Granulocytes % Neutrophils % 83.8 H Lymphocytes % 9.2 L Monocytes % 6.5 Eosinophils % 0.0 Basophils % 0.1 Nucleated Red 0.0 Blood Cells % Immature 0.040 H Granulocytes # Neutrophils # 8.7 H Lymphocytes # 1.0 Monocytes # 0.7 Eosinophils # 0.0 Basophils # 0.0 Nucleated Red 0.0 Blood Cells # Prothrombin Time 13.9 Prothrombin Time 1.1 Ratio INR 1.06 International Normalized Ratio Activated 26.3 Partial Thrombop last Time Sodium Level 140 Potassium Level 4.1 Chloride Level 107 Carbon Dioxide 23 Level Anion Gap 10 Blood Urea 20 Nitrogen Creatinine 0.84 Est Glomerular Filtrat Rate mL/min Glucose Level 179 Calcium Level 9.1 Total Bilirubin 0.3 Direct Bilirubin 0.00 Indirect 0.3 Bilirubin Aspartate Amino 26 Transf (AST/SGOT ) Alanine 11 L Aminotransferase (ALT/SGPT) Alkaline 78 Phosphatase Troponin I 0.066 Total Protein 7.6 Albumin 3.8 Globulin 3.80 H Albumin/Globulin 1.00 Ratio POC Venous 2.2 *H 1.6 Lactate Urine Color YELLOW Urine Clarity SLIGHTLY CLOUDY A Urine pH 5.0 Urine Specific 1.019 [place] Urine Ketones NEGATIVE Urine Nitrite NEGATIVE Urine Bilirubin NEGATIVE Urine 1+ H Urobilinogen Urine Leukocyte 2+ H Esterase Urine 9 H Microscopic RBC Urine 49 H Microscopic WBC Urine Squamous FEW Epithelial Cells Urine Mucus FEW A Urine Hemoglobin 1+ H Urine Glucose NEGATIVE Urine Total 1+ H Protein Test 09/14/18 19:48 09/14/18 22:12 09/14/18 23:37 09/15/18 00:53 Lactic Acid 1.2 7.9 *H Level Bedside Glucose 199 Blood Gas Blood arterial Specimen Source Arterial Blood 09/14/2018 11:43 Date Drawn :22 PM Arterial Blood 6.996 *L pH (Temp corrected) Arterial Blood 42.0 pCO2 (Temp correct) Arterial Blood 113.2 H pO2 (Temp corrected) Arterial Blood 10.0 L HCO3 Arterial Blood -20.5 L Base Excess Arterial Blood 95.1 Oxygen Saturatio n Aroldo Test ACCEPTAB Arterial Blood Right Radial Gas Puncture Site Arterial 0.2 Blood Carboxyhem oglobin Arterial Blood 0.1 Methemoglobin Blood Gas A-a O2 275.6 H Differential Oxyhemoglobin 94.8 Percent Blood Gas 37.0 Temperature Blood Gas Actual 32 Respiration Rate Blood Gas MASK - SIMPLE Modality FiO2 61.0 Blood Gas SAGE.D,R.N. Critical Value Read Back Blood Gas LÓPEZ CAREY Notified Whom Blood Gas 09/14/2018 11:57 Notified Time :06 PM Sodium Level 144 Potassium Level 4.8 Chloride Level 112 H Carbon Dioxide 19 L Level Anion Gap 13 Blood Urea 23 H Nitrogen Creatinine 1.22 H Est Glomerular Filtrat Rate mL/min Glucose Level 300 H Calcium Level 7.7 L Total Bilirubin 0.2 Direct Bilirubin 0.00 Indirect 0.2 Bilirubin Aspartate Amino 65 H Transf (AST/SGOT ) Alanine 52 Aminotransferase (ALT/SGPT) Alkaline 77 Phosphatase Troponin I 1.790 *H B-Type 27592 H Natriuretic Peptide Total Protein 5.2 #L Albumin 2.5 #L Globulin 2.70 Albumin/Globulin 0.92 Ratio Test 09/15/18 01:15 09/15/18 01:40 09/15/18 02:16 09/15/18 05:07 Blood Gas Blood arterial Specimen Source Arterial Blood 09/15/2018 2:12: Date Drawn 05 AM Arterial Blood 7.261 *L pH (Temp corrected) Arterial Blood 35.2 pCO2 (Temp correct) Arterial Blood 99.6 H pO2 (Temp corrected) Arterial Blood 15.5 L HCO3 Arterial Blood -10.6 L Base Excess Arterial Blood 96.0 Oxygen Saturatio n Aroldo Test ACCEPTAB Arterial Blood Right Radial Gas Puncture Site Arterial 0.2 Blood Carboxyhem oglobin Arterial Blood 0.3 Methemoglobin Blood Gas A-a O2 296.7 H Differential Oxyhemoglobin 95.5 Percent Blood Gas 37.0 Temperature Blood Gas Actual 32 Respiration Rate Blood Gas SIMPLE MASK Modality FiO2 61.0 Blood Gas Silvia SAGE RN Critical Value Read Back Blood Gas Notified Whom Blood Gas 09/15/2018 2:34: Notified Time 32 AM Bedside Glucose 328 H White Blood 13.0 #H 10.4 Count Red Blood Count 3.02 L 3.01 L Hemoglobin 9.7 L 9.9 L Hematocrit 30.9 L 31.7 L Mean Corpuscular 102.3 H 105.3 H Volume Mean Corpuscular 32.1 32.9 Hemoglobin Mean Corpuscular 31.4 L 31.2 L Hemoglobin Myrna nt Red Cell 13.2 13.2 Distribution Width Platelet Count 192 167 Mean Platelet 9.4 9.6 Volume Immature 0.900 H 0.600 H Granulocytes % Neutrophils % 77.4 H 80.1 H Lymphocytes % 14.3 L 13.7 L Monocytes % 7.2 5.5 Eosinophils % 0.0 0.0 Basophils % 0.2 0.1 Nucleated Red 0.0 0.0 Blood Cells % Immature 0.120 H 0.060 H Granulocytes # Neutrophils # 10.0 H 8.3 H Lymphocytes # 1.9 1.4 Monocytes # 0.9 0.6 Eosinophils # 0.0 0.0 Basophils # 0.0 0.0 Nucleated Red 0.0 0.0 Blood Cells # Prothrombin Time 17.7 #H Prothrombin Time 1.4 Ratio INR 1.45 International Normalized Ratio Activated 28.9 Partial Thrombop last Time Sodium Level 143 Potassium Level 5.0 Chloride Level 109 Carbon Dioxide 16 L Level Anion Gap 18 H Blood Urea 22 H Nitrogen Creatinine 1.47 H Est Glomerular Filtrat Rate mL/min Glucose Level 264 H Hemoglobin A1c 5.7 Calcium Level 7.3 L Phosphorus Level 4.8 Magnesium Level 1.8 Troponin I 1.990 *H Triglycerides 69 Level Cholesterol 71 L Level LDL Cholesterol, 28 Calculated HDL Cholesterol 29 L Cholesterol/HDL 2.4 Ratio Free Thyroxine 3.62 Index Thyroxine (T4) 6.9 Triiodothyronine 52.5 H (T3) Uptake Test 09/15/18 07:45 09/15/18 08:22 09/15/18 10:41 09/15/18 11:29 Bedside Glucose 236 H 261 H Activated 126.1 *H Partial Thrombop last Time Lactic Acid 2.9 *H Level Troponin I 3.400 *H Medications Medication Current Medications Sodium Chloride 1,000 ml @ 40 mls/hr Q24H IV Last administered on 09/15/18at 06:00; Admin Dose 40 MLS/HR; Start 09/14/18 at 19:11 IV Flush (NS 3 ml) 3 ml PER PROTOCOL IV ; Start 09/14/18 at 19:30 Ondansetron HCl (Zofran Inj) 4 mg Q6H PRN IV NAUSEA/VOMITING; Start 09/14/18 at 19:30 Acetaminophen (Tylenol Tab) 650 mg Q6H PRN PO .PAIN 1-3 OR TEMP; Start 09/14/18 at 19:30 Acetaminophen/ Hydrocodone Bitart ([place] (5/325)) 1 tab Q6H PRN PO .MOD PAIN 4- 6 Last administered on 09/14/18at 22:07; Admin Dose 1 TAB; Start 09/14/18 at 19:3 0 Morphine Sulfate (morphine) 2 mg Q4H PRN IV .SEVERE PAIN 7-10 Last administered on 09/15/18 11:21; Admin Dose 2 MG; Start 09/14/18 at 19:30 Docusate Sodium (Colace) 100 mg Q12H PRN PO .CONSTIPATION; Start 09/14/18 at 19:30 Zolpidem Tartrate (Ambien) 5 mg QHS PRN PO .INSOMNIA; Start 09/14/18 at 19:30 Aspirin (Aspirin) 81 mg DAILY PO Last administered on 09/15/18 09:00; Admin Dose 81 MG; Start 09/15/18 at 09:00 Diagnostic Test (Pha) (Accu-Chek) 1 ea 02 XX Last administered on 09/15/18 01 :41; Admin Dose 1 EA; Start 09/15/18 at 02:00 Insulin Aspart (Novolog Insulin Pen) NOVOLOG *MILD* ALGORITHM WITH MEALS BEDTIME SC Last administered on 09/15/18 11:39; Admin Dose 4 UNIT; Start 09/14 at 21:00 Budesonide (Pulmicort (Neb)) 0.5 mg BID RESP THERAPY HHN Last administered on 09/15/18 09:59; Admin Dose 0.5 MG; Start 09/15/18 at 09:00 Albuterol/ Ipratropium (Duoneb) 3 ml Q2H RESP THERAPY PRN HHN shortness of breath; Start 09/15/18 at 00:00 Albuterol/ Ipratropium (Duoneb) 3 ml Q6H RESP THERAPY HHN Last administered on 09/15/18 09:55; Admin Dose 3 ML; Start 09/15/18 at 02:00 Nitroglycerin (Nitroglycerin (Sl Tab) 0.4 Mg) 1 tab Q5M PRN SL ANGINA; Start 09/15/18 at 00:00 Piperacillin Sod/ Tazobactam Sod 50 ml @ 100 mls/hr Q6 IVPB Last administered on 09/15/18 11:26; Admin Dose 100 MLS/HR; Start 09/15/18 at 00:16 Heparin Sodium (Porcine) (Heparin (1000 Units/ml)) 4,000 unit PER PROTOCOL PRN IV aPTT<47; Start 09/15/18 at 02:00 Heparin Sodium (Porcine) 250 ml @ 8.5 mls/hr PER PROTOCOL IV Last administered on 09/15/18at 02:24; Admin Dose 8.5 MLS/HR; Start 09/15/18 at 02:00 Norepinephrine 16 mg/Dextrose 250 ml @ 0.94 mls/hr TITRATE IV Last administered on 09/15/18at 06:26; Admin Dose 0.94 MLS/HR; Start 09/15/18 at 05:30 Magnesium Sulfate 50 ml @ 25 mls/hr ONCE ONCE IVPB Last administered on 09/15/18at 11:21; Admin Dose 25 MLS/HR; Start 09/15/18 at 11:30; Stop 09/15/18 at 13:29 Insulin Glargine (Lantus) 12 units DAILY SC ; Start 09/15/18 at 13:30 HAYLEY ARREDONDO Sep 15, 2018 12:01
[2018-09-15] MEDS: INSULIN GLARGINE [LANTus] (100 UNITS/ML) SYG SC SCH (14:14)
--- NOTE | 2018-09-15 14:49 | RADRPT ---
Echocardiogram Report Patient Name: Estephania NUNEZ ID: [id number] : 1935 (82y 11m)Study Date: 09/15/2018 9:17:15 AM Gender: FAccession #: [id number] Tech: EBONY Location: Ref.Physician: HAYLEY ARREDONDO Height(Cm): BSA: Weight(Kg): Quality: GoodAccount #: Procedures: Echocardiographic Report: Transthoracic echocardiogram with complete 2D, M-Mode, and doppler examination. Indications: [place]. Measurements: 2D/M Mode Doppler Measurement Value Normal Range Measurement Value Normal Range LVIDd 2D 4.3 [ 3.8 - 5.2 ] cm LAUREN Vmax 1.0 [ 2.0 - 4.0 ] cm2 LVIDs 2D 3.5 [ 2.2 - 3.5 ] cm LAUREN VTI 0.9 [ 2.0 - 4.0 ] cm2 LVPWd 2D 1.1 [ 0.6 - 0.9 ] cm AV Mean Prem 1.6 [ 70.0 - 90.0 ] cm/sec IVSd 2D 1.1 [ 0.6 - 0.9 ] cm AV Mean PG 11.0 [ 2.0 - 4.0 ] mmHg IVS/LVPW 2D 1.0 ratio AV Peak Prem 2.3 [ 100.0 - 170.0 ] cm/sec LVOT Diam 1.9 [ 2.1 - 2.5 ] cm AV Peak PG 20.0 [ 2.0 - 9.0 ] mmHg LVOT Area 2.8 cm2 AV VTI 50.6 cm LVOT Mean Prem 0.5 [ 60.0 - 80.0 ] cm/sec LVOT Mean PG 1.0 [ 1.0 - 3.0 ] mmHg LVOT Peak Prem 0.8 [ 70.0 - 110.0 ] cm/sec LVOT Peak PG 3.0 [ 2.0 - 6.0 ] mmHg LVOT VTI 15.4 [ 20.0 - 30.0 ] cm TR Peak Prem 2.8 [ 100.0 - 280.0 ] cm/sec TR Peak PG 31.0 mmHg PV Peak Prem 0.6 [ 40.0 - 80.0 ] cm/sec PV Peak PG 2.0 mmHg Findings: Left Ventricle: Moderate left ventricular systolic dysfunction. Ejection fraction is visually estimated at 30-35 %. Tissue Doppler/Mitral Doppler indices are consistent with restrictive physiology with markedly elevated left atrial pressure (Stage III-IV diastolic dysfunction). Multiple segmental wall motion abnormalities. Right Ventricle: Normal right ventricular size. Normal right ventricular systolic function. Left Atrium: There is moderate enlargement of left atrium. Right Atrium: There is mild enlargement of right atrium. Atrial Septum: Normal atrial septum. Mitral Valve: Moderate mitral leaflet calcification. Moderate mitral annular calcification. Moderate to severe mitral valve regurgitation. Aortic Valve: Aortic valve not well visualized. Moderate to severe aortic stenosis however due to low cardiac output severity of aortic stenosis is underestimated. Aortic valve area 0.90 cm2. Mild to moderate aortic valve regurgitation. Tricuspid Valve: Normal appearance of the tricuspid valve. There is moderate tricuspid regurgitation. Pulmonic Valve: Pulmonic valve not well visualized. Pericardium: Normal pericardium with no significant pericardial effusion. Aorta: Not well visualized. IVC: Dilated inferior vena cava with poor inspiratory collapse consistent with elevated right atrial pressures. Pulmonary Artery: Normal pulmonary artery size. Conclusions: Moderate left ventricular systolic dysfunction. Ejection fraction is visually estimated at 30-35 %. Tissue Doppler/Mitral Doppler indices are consistent with restrictive physiology with markedly elevated left atrial pressure (Stage III-IV diastolic dysfunction). Multiple segmental wall motion abnormalities. There is moderate enlargement of left atrium. There is mild enlargement of right atrium. Moderate mitral leaflet calcification. Moderate mitral annular calcification. Moderate to severe mitral valve regurgitation. Aortic valve not well visualized. Moderate to severe aortic stenosis however due to low cardiac output severity of aortic stenosis is underestimated. Aortic valve area 0.90 cm2. Mild to moderate aortic valve regurgitation. Normal appearance of the tricuspid valve. There is moderate tricuspid regurgitation. Dilated inferior vena cava with poor inspiratory collapse consistent with elevated right atrial pressures. Electronically Signed By: Esequiel Jimenez 2018-09-15 14:48:22 PST
--- NOTE | 2018-09-15 14:56 | CONS ---
Assessment/Plan Assessment/Plan Assessment/Plan (Daily) 1. acute Renal failure 2/2 Hemodynamics from CHF 2. acute CHF, possibly systolic with low EF 3. atrial fibrillation with RVR 5. septich shock possibly due to UTI 6. UTI with Urine cx growing Group B streptoccoci 7. Acute NSTEMI 8. h/o HTN 9. H/o DM II 10. H/o HL 11. metabolic acidosis due to Septic shock + renal failure Plan: seen in ICU, Will give sodium bicarbonate drip with 100mEQ at 80 cc/hr Renal US Urine studies including urine Na, urine prot/cr ration, Urine eosinophils, CK total, NSTEMI management as per cardiology, ok to do Cardiac cath if needed, will co ntinue HCo3 drip till 6 hr post procedure IV abx zosyn for sepsis, renally dose all abx and monitor electrolytes Levophed for septic shock Thanks for consultation, I will continue to follow up Consultation Date/Type/Reason Admit Date/Time September 14, 2018 Date of Consultation: Sep 15, 2018 Type of Consult NEPHROLOGY Reason for Consultation acute renal failure Requesting Provider: HAYLEY ARREDONDO Date/Time of Note DATE: 09/15/18 TIME: 14:56 Hx of Present Illness 82-year-old lady with multiple medical problems admitted with several-day history of increasing shortness of breath, cough, congestion, found to be in AFib with RVR with low blood pressure. Labs demonstrated Streptococcal group B urinary tract infection which is likely source of her septic shock. Currently, she is still requiring vasopressors with metabolic acidosis and mild pulmonary edema.. pt had a BUN/Cr 20/0.84 on admission which bumped to 27/1.41 and Renal has been consulted for acute renal failure. Constitutional: no complaints Eyes: no complaints ENT: congestion Respiratory: cough, pleuritic pain, shortness of breath Cardiovascular: no complaints Gastrointestinal: no complaints Genitourinary: no complaints Musculoskeletal: no complaints Skin: no complaints Neurologic: no complaints Endocrine: no complaints Lymphatic: no complaints Psychological: no complaints Immunologic: no complaints Past Medical History Medical History: diabetes, high cholesterol, hypertension, other (atrial fibrillation ) Home Meds Reported Medications Rosiglitazone Maleate* (Avandia*) 8 Mg Tablet 10/25/10 Cyclobenzaprine Hcl* (Cyclobenzaprine Hcl*) 10 Mg Tablet 10/25/10 Diclofenac Sodium* (Voltaren*) 25 Mg Tablet. 10/25/10 Carvedilol* (Carvedilol*) 25 Mg Tablet 10/25/10 Valsartan* (Diovan*) 80 Mg Tablet 10/25/10 Simvastatin* (Zocor*) 20 Mg Tablet 10/25/10 Folic Acid* (Folic Acid*) 1 Mg Tablet 10/25/10 Metformin Hcl* (Metformin Hcl*) 1,000 Mg Tablet 10/25/10 Nifedipine (Nifedipine XL) 30 Mg/Bottle Tab.osm.24 10/25/10 Aspirin (Aspirin) 81 Mg Tablet 10/25/10 Nifedipine* (Nifedipine ER*) 60 Mg Tablet.sa 10/25/10 Medications Current Medications Sodium Chloride 1,000 ml @ 40 mls/hr Q24H IV Last administered on 09/15/18at 06:00; Admin Dose 40 MLS/HR; Start 09/14/18 at 19:11 IV Flush (NS 3 ml) 3 ml PER PROTOCOL IV ; Start 09/14/18 at 19:30 Ondansetron HCl (Zofran Inj) 4 mg Q6H PRN IV NAUSEA/VOMITING; Start 09/14/18 at 19:30 Acetaminophen (Tylenol Tab) 650 mg Q6H PRN PO .PAIN 1-3 OR TEMP; Start 09/14/18 at 19:30 Acetaminophen/ Hydrocodone Bitart ([place] (5/325)) 1 tab Q6H PRN PO .MOD PAIN 4- 6 Last administered on 09/14/18at 22:07; Admin Dose 1 TAB; Start 09/14/18 at 19:30 Morphine Sulfate (morphine) 2 mg Q4H PRN IV .SEVERE PAIN 7-10 Last administered on 09/15/18at 11:21; Admin Dose 2 MG; Start 09/14/18 at 19:30 Docusate Sodium (Colace) 100 mg Q12H PRN PO .CONSTIPATION; Start 09/14/18 at 19:30 Zolpidem Tartrate (Ambien) 5 mg QHS PRN PO .INSOMNIA; Start 09/14/18 at 19:30 Aspirin (Aspirin) 81 mg DAILY PO Last administered on 09/15/18at 09:00; Admin Dose 81 MG; Start 09/15/18 at 09:00 Diagnostic Test (Pha) (Accu-Chek) 1 ea 02 XX Last administered on 09/15/18 01:41; Admin Dose 1 EA; Start 09/15/18 at 02:00 Insulin Aspart (Novolog Insulin Pen) NOVOLOG *MILD* ALGORITHM WITH MEALS BEDTIME SC Last administered on 09/15/18 11:39; Admin Dose 4 UNIT; Start 09/14/18 at 21:00 Budesonide (Pulmicort (Neb)) 0.5 mg BID RESP THERAPY HHN Last administered on 09/15/18 09:59; Admin Dose 0.5 MG; Start 09/15/18 at 09:00 Albuterol/ Ipratropium (Duoneb) 3 ml Q2H RESP THERAPY PRN HHN shortness of breath; Start 09/15/18 at 00:00 Albuterol/ Ipratropium (Duoneb) 3 ml Q6H RESP THERAPY HHN Last administered on 09/15/18 14:55; Admin Dose 3 ML; Start 09/15/18 at 02:00 Nitroglycerin (Nitroglycerin (Sl Tab) 0.4 Mg) 1 tab Q5M PRN SL ANGINA; Start 09/15/18 at 00:00 Piperacillin Sod/ Tazobactam Sod 50 ml @ 100 mls/hr Q6 IVPB Last administered on 09/15/18 11:26; Admin Dose 100 MLS/HR; Start 09/15/18 at 00:16 Heparin Sodium (Porcine) (Heparin (1000 Units/ml)) 4,000 unit PER PROTOCOL PRN IV aPTT<47; Start 09/15/18 at 02:00 Heparin Sodium (Porcine) 250 ml @ 8.5 mls/hr PER PROTOCOL IV Last administered on 09/15/18 02:24; Admin Dose 8.5 MLS/HR; Start 09/15/18 at 02:00 Norepinephrine 16 mg/Dextrose 250 ml @ 0.94 mls/hr TITRATE IV Last administered on 09/15/18 06:26; Admin Dose 0.94 MLS/HR; Start 09/15/18 at 05:30 Insulin Glargine (Lantus) 12 units DAILY SC Last administered on 09/15/18 14:14; Admin Dose 12 UNITS; Start 09/15/18 at 13:30 Allergies: Coded Allergies: No Known Allergy (Verified Allergy, Unknown, 10/25/10) Past Surgical History Past Surgical Hx: no surgical history Family History Significant Family History: no pertinent family hx Social History Alcohol Use: none Smoking Status: Never smoker Drug Use: none Exam/Review of Systems Exam Vitals Vital Signs Date Temp Pulse Resp B/P (MAP) Pulse Ox O2 O2 Flow FiO2 Time Delivery Rate 09/15/18 70 18 116/64 96 14:30 (81) 09/15/18 Nasal 14:00 Cannula 09/15/18 6.0 13:00 09/15/18 97.5 12:00 09/15/18 61 01:30 Intake and Output 09/14/18 09/14/18 09/15/18 1515:00 23:00 07:00 IntakeIntake Total 50 ml 1098.5 ml BalanceBalance 50 ml 1098.5 ml Constitutional: alert Psych: no complaints Head: normocephalic Eyes: nl conjunctiva ENMT: nl external ears & nose Neck: supple, non-tender Respiratory: clear to auscultation, diminished breath sounds Cardiovascular: regular rate and rhythm, nl pulses Gastrointestinal: soft, non-tender Extremities: normal pulses Neurological: [employer] II-XII intact, nl mental status Lymph: nl lymph nodes Results Result Diagram: 09/15/18 0507 09/15/18 0507 Results 24hrs Laboratory Tests Test 09/14/18 15:33 09/14/18 15:34 09/14/18 17:17 09/14/18 17:49 White Blood 10.4 Count Red Blood Count 3.31 L Hemoglobin 10.6 L Hematocrit 32.3 L Mean 97.6 Corpuscular Volume Mean 32.0 Corpuscular Hemoglobin Mean 32.8 Corpuscular Hemoglobin Conc ent Red Cell 12.8 Distribution Width Platelet Count 234 Mean Platelet 8.8 Volume Immature 0.400 Granulocytes % Neutrophils % 83.8 H Lymphocytes % 9.2 L Monocytes % 6.5 Eosinophils % 0.0 Basophils % 0.1 Nucleated Red 0.0 Blood Cells % Immature 0.040 H Granulocytes # Neutrophils # 8.7 H Lymphocytes # 1.0 Monocytes # 0.7 Eosinophils # 0.0 Basophils # 0.0 Nucleated Red 0.0 Blood Cells # Prothrombin 13.9 Time Prothrombin 1.1 Time Ratio INR 1.06 International Normalized Rati o Activated 26.3 Partial Thrombo plast Time Sodium Level 140 Potassium Level 4.1 Chloride Level 107 Carbon Dioxide 23 Level Anion Gap 10 Blood Urea 20 Nitrogen Creatinine 0.84 Est Glomerular Filtrat Rate mL/min Glucose Level 179 Calcium Level 9.1 Total Bilirubin 0.3 Direct 0.00 Bilirubin Indirect 0.3 Bilirubin Aspartate Amino 26 Transf (AST/SGO T) Alanine 11 L Aminotransferas e (ALT/SGPT) Alkaline 78 Phosphatase Troponin I 0.066 Total Protein 7.6 Albumin 3.8 Globulin 3.80 H Albumin/Globuli 1.00 n Ratio POC Venous 2.2 *H 1.6 Lactate Urine Color YELLOW Urine Clarity SLIGHTLY CLOUDY A Urine pH 5.0 Urine Specific 1.019 [place] Urine Ketones NEGATIVE Urine Nitrite NEGATIVE Urine Bilirubin NEGATIVE Urine 1+ H Urobilinogen Urine Leukocyte 2+ H Esterase Urine 9 H Microscopic RBC Urine 49 H Microscopic WBC Urine Squamous FEW Epithelial Cell s Urine Mucus FEW A Urine 1+ H Hemoglobin Urine Glucose NEGATIVE Urine Total 1+ H Protein Test 09/14/18 19:48 09/14/18 22:12 09/14/18 23:37 09/15/18 00:53 Lactic Acid 1.2 7.9 *H Level Bedside Glucose 199 Blood Gas Blood arterial Specimen Source Arterial Blood 09/14/2018 11:43 Date Drawn :22 PM Arterial Blood 6.996 *L pH (Temp corrected ) Arterial Blood 42.0 pCO2 (Temp correct) Arterial Blood 113.2 H pO2 (Temp corrected ) Arterial Blood 10.0 L HCO3 Arterial Blood -20.5 L Base Excess Arterial Blood 95.1 Oxygen Saturati on Aroldo Test ACCEPTAB Arterial Blood Right Radial Gas Puncture Site Arterial 0.2 Blood Carboxyhe moglobin Arterial Blood 0.1 Methemoglobin Blood Gas A-a 275.6 H O2 Differential Oxyhemoglobin 94.8 Percent Blood Gas 37.0 Temperature Blood Gas 32 Actual Respiration Rat e Blood Gas MASK - SIMPLE Modality FiO2 61.0 Blood Gas CHU.D,R.N. Critical Value Read Back Blood Gas LÓPEZ CAREY Notified Whom Blood Gas 09/14/2018 11:57 Notified Time :06 PM Sodium Level 144 Potassium Level 4.8 Chloride Level 112 H Carbon Dioxide 19 L Level Anion Gap 13 Blood Urea 23 H Nitrogen Creatinine 1.22 H Est Glomerular Filtrat Rate mL/min Glucose Level 300 H Calcium Level 7.7 L Total Bilirubin 0.2 Direct 0.00 Bilirubin Indirect 0.2 Bilirubin Aspartate Amino 65 H Transf (AST/SGO T) Alanine 52 Aminotransferas e (ALT/SGPT) Alkaline 77 Phosphatase Troponin I 1.790 *H B-Type 83108 H Natriuretic Peptide Total Protein 5.2 #L Albumin 2.5 #L Globulin 2.70 Albumin/Globuli 0.92 n Ratio Test 09/15/18 01:15 09/15/18 01:40 09/15/18 02:16 09/15/18 05:07 Blood Gas Blood arterial Specimen Source Arterial Blood 09/15/2018 2:12: Date Drawn 05 AM Arterial Blood 7.261 *L pH (Temp corrected ) Arterial Blood 35.2 pCO2 (Temp correct) Arterial Blood 99.6 H pO2 (Temp corrected ) Arterial Blood 15.5 L HCO3 Arterial Blood -10.6 L Base Excess Arterial Blood 96.0 Oxygen Saturati on Aroldo Test ACCEPTAB Arterial Blood Right Radial Gas Puncture Site Arterial 0.2 Blood Carboxyhe moglobin Arterial Blood 0.3 Methemoglobin Blood Gas A-a 296.7 H O2 Differential Oxyhemoglobin 95.5 Percent Blood Gas 37.0 Temperature Blood Gas 32 Actual Respiration Rat e Blood Gas SIMPLE MASK Modality FiO2 61.0 Blood Gas Silvia SAGE RN Critical Value Read Back Blood Gas Notified Whom Blood Gas 09/15/2018 2:34: Notified Time 32 AM Bedside Glucose 328 H White Blood 13.0 #H 10.4 Count Red Blood Count 3.02 L 3.01 L Hemoglobin 9.7 L 9.9 L Hematocrit 30.9 L 31.7 L Mean 102.3 H 105.3 H Corpuscular Volume Mean 32.1 32.9 Corpuscular Hemoglobin Mean 31.4 L 31.2 L Corpuscular Hemoglobin Conc ent Red Cell 13.2 13.2 Distribution Width Platelet Count 192 167 Mean Platelet 9.4 9.6 Volume Immature 0.900 H 0.600 H Granulocytes % Neutrophils % 77.4 H 80.1 H Lymphocytes % 14.3 L 13.7 L Monocytes % 7.2 5.5 Eosinophils % 0.0 0.0 Basophils % 0.2 0.1 Nucleated Red 0.0 0.0 Blood Cells % Immature 0.120 H 0.060 H Granulocytes # Neutrophils # 10.0 H 8.3 H Lymphocytes # 1.9 1.4 Monocytes # 0.9 0.6 Eosinophils # 0.0 0.0 Basophils # 0.0 0.0 Nucleated Red 0.0 0.0 Blood Cells # Prothrombin 17.7 #H Time Prothrombin 1.4 Time Ratio INR 1.45 International Normalized Rati o Activated 28.9 Partial Thrombo plast Time Sodium Level 143 Potassium Level 5.0 Chloride Level 109 Carbon Dioxide 16 L Level Anion Gap 18 H Blood Urea 22 H Nitrogen Creatinine 1.47 H Est Glomerular Filtrat Rate mL/min Glucose Level 264 H Hemoglobin A1c 5.7 Calcium Level 7.3 L Phosphorus 4.8 Level Magnesium Level 1.8 Troponin I 1.990 *H Triglycerides 69 Level Cholesterol 71 L Level LDL 28 Cholesterol, Calculated HDL Cholesterol 29 L Cholesterol/HDL 2.4 Ratio Free Thyroxine 3.62 Index Thyroxine (T4) 6.9 Triiodothyronin 52.5 H e (T3) Uptake Test 09/15/18 07:45 09/15/18 08:22 09/15/18 10:41 09/15/18 11:10 Bedside Glucose 236 H Activated 126.1 *H Partial Thrombo plast Time Lactic Acid 2.9 *H Level Troponin I 3.400 *H Blood Gas Blood Specimen arterial Source Arterial Blood 09/15/2018 11:5 Date Drawn 3:50 AM Arterial Blood 7.234 *L pH (Temp corrected ) Arterial Blood 43.5 pCO2 (Temp correct) Arterial Blood 73.0 L pO2 (Temp corrected ) Arterial Blood 18.0 L HCO3 Arterial Blood -9.1 L Base Excess Arterial Blood 92.1 L Oxygen Saturati on Aroldo Test ACCEPTAB Arterial Blood Left Radial Gas Puncture Site Arterial 0 Blood Carboxyhe moglobin Arterial Blood 0 Methemoglobin Blood Gas A-a 234.6 H O2 Differential Oxyhemoglobin 92.1 L Percent Blood Gas 37.0 Temperature Blood Gas MASK - VENTI Modality FiO2 50.0 Blood Gas Tania BARTHOLOMEW RN Critical Value Read Back Blood Gas Notified Whom Blood Gas 09/15/2018 12:0 Notified Time 4:30 PM Test 09/15/18 11:29 Bedside Glucose 261 H Medications Medication Current Medications Sodium Chloride 1,000 ml @ 40 mls/hr Q24H IV Last administered on 09/15/18at 06:00; Admin Dose 40 MLS/HR; Start 09/14/18 at 19:11 IV Flush (NS 3 ml) 3 ml PER PROTOCOL IV ; Start 09/14/18 at 19:30 Ondansetron HCl (Zofran Inj) 4 mg Q6H PRN IV NAUSEA/VOMITING; Start 09/14/18 at 19:30 Acetaminophen (Tylenol Tab) 650 mg Q6H PRN PO .PAIN 1-3 OR TEMP; Start 09/14/18 at 19:30 Acetaminophen/ Hydrocodone Bitart ([place] (5/325)) 1 tab Q6H PRN PO .MOD PAIN 4- 6 Last administered on 09/14/18 22:07; Admin Dose 1 TAB; Start 09/14/18 at 19:30 Morphine Sulfate (morphine) 2 mg Q4H PRN IV .SEVERE PAIN 7-10 Last administered on 09/15/18 11:21; Admin Dose 2 MG; Start 09/14/18 at 19:30 Docusate Sodium (Colace) 100 mg Q12H PRN PO .CONSTIPATION; Start 09/14/18 at 19:30 Zolpidem Tartrate (Ambien) 5 mg QHS PRN PO .INSOMNIA; Start 09/14/18 at 19:30 Aspirin (Aspirin) 81 mg DAILY PO Last administered on 09/15/18 09:00; Admin Dose 81 MG; Start 09/15/18 at 09:00 Diagnostic Test (Pha) (Accu-Chek) 1 ea 02 XX Last administered on 09/15/18 01:41; Admin Dose 1 EA; Start 09/15/18 at 02:00 Insulin Aspart (Novolog Insulin Pen) NOVOLOG *MILD* ALGORITHM WITH MEALS BEDTIME SC Last administered on 09/15/18 11:39; Admin Dose 4 UNIT; Start 09/14/18 at 21:00 Budesonide (Pulmicort (Neb)) 0.5 mg BID RESP THERAPY HHN Last administered on 09/15/18 09:59; Admin Dose 0.5 MG; Start 09/15/18 at 09:00 Albuterol/ Ipratropium (Duoneb) 3 ml Q2H RESP THERAPY PRN HHN shortness of breath; Start 09/15/18 at 00:00 Albuterol/ Ipratropium (Duoneb) 3 ml Q6H RESP THERAPY HHN Last administered on 2/18/19at 14:55; Admin Dose 3 ML; Start 09/15/18 at 02:00 Nitroglycerin (Nitroglycerin (Sl Tab) 0.4 Mg) 1 tab Q5M PRN SL ANGINA; Start 09/15/18 at 00:00 Piperacillin Sod/ Tazobactam Sod 50 ml @ 100 mls/hr Q6 IVPB Last administered on 09/15/18 11:26; Admin Dose 100 MLS/HR; Start 09/15/18 at 00:16 Heparin Sodium (Porcine) (Heparin (1000 Units/ml)) 4,000 unit PER PROTOCOL PRN IV aPTT<47; Start 09/15/18 at 02:00 Heparin Sodium (Porcine) 250 ml @ 8.5 mls/hr PER PROTOCOL IV Last administered on 09/15/18 02:24; Admin Dose 8.5 MLS/HR; Start 09/15/18 at 02:00 Norepinephrine 16 mg/Dextrose 250 ml @ 0.94 mls/hr TITRATE IV Last a dministered on 09/15/18at 06:26; Admin Dose 0.94 MLS/HR; Start 09/15/18 at 05:30 Insulin Glargine (Lantus) 12 units DAILY SC Last administered on 09/15/18 14:14; Admin Dose 12 UNITS; Start 09/15/18 at 13:30 BEKA HARPER MD Sep 15, 2018 14:56
--- NOTE | 2018-09-15 15:55 | CONS ---
DATE OF ADMISSION: 09/14/2018 DATE OF CONSULTATION: TYPE OF CONSULTATION: Pulmonary. REASON FOR CONSULTATION: Hypoxemia and septic shock. HISTORY OF PRESENT ILLNESS: This is an 82-year-old lady with multiple medical problems admitted with several-day history of increasing shortness of breath, cough, congestion, found to be in AFib with R VR with low blood pressure. Labs demonstrated Streptococcal group B urinary tract infection which is likely source of her septic shock. Currently, she is still requiring vasopressors with metabolic ac idosis and mild pulmonary edema. PAST MEDICAL HISTORY: Diabetes mellitus and essential hypertension. MEDICATIONS: Per chart. ALLERGIES: NONE. SOCIAL HISTORY: She is a nonsmoker. No alcohol, no history of drug use. FAMILY HISTORY: Noncontributory. REVIEW OF SYSTEMS: A 12-point review of systems was negative other than that mentioned above. PHYSICAL EXAMINATION: GENERAL: Well-nourished, well-developed lady, comfortable at rest, in no acute distress. VITAL SIGNS: Currently afebrile, pulse is 72, blood pressure 116/64, O2 saturation 96% on 6 liters. NECK: Supple. JVD is mildly elevated. CARDIAC: S1, S2. Irregular rate and rhythm. LUNGS: Diminished air entry bilaterally with few rhonchi. ABDOMEN: Soft, nontender. No guarding or rebound. EXTREMITIES: No cyanosis, clubbing. A 1+ edema. NEUROLOGIC: Generalized weakness. LABORATORY DATA: White count 10.4, hemoglobin 9.9, platelets of 167. BUN 22, creatinine 1.47. INR was 1.45. Arterial blood gas: pH 7.23, pCO2 of 43, pO2 of 73, bicarbonate was 18. DIAGNOSTIC DATA: Chest x-ray demonstrated pulmonary edema. IMPRESSION AND PLAN: 1. Septic shock, likely secondary to urinary tract infection. 2. Possible community-acquired pneumonia. 3. Pulmonary edema with acute hypoxemic respiratory failure. 4. Renal insufficiency, likely acute tubular necrosis injury. PLAN: 1. Continue broad-spectrum antibiotics. 2. IV fluids and bicarbonate. 3. Glycemic management. 4. Diuresis once hemodynamically stable. 5. DVT and GI prophylaxis. Dictated By: ALEN FLORES MD SV/EDWIN Conf#: [id number] DID#: [id number] CC: HAYLEY ARREDONDO MD; EBKA HARPER MD;*End*
--- NOTE | 2018-09-15 16:24 | CONS ---
Assessment/Plan Assessment/Plan Hospital Course (Demo Recall) 1. Non-ST elevation myocardial infarction 2. Congestive heart failure appears acute secondary systolic heart failure 3. Sepsis and shock 4. Arrhythmias with proximal atrial fibrillation junctional rhythm 5. Severe cardiomyopathy most likely ischemic 6/ DM 7.HX HTN now hypotensive and shock 8. UTI 9. ? pneumonia 10. debility 11. Arrhythmias with proximal atrial fibrillation junctional rhythm Recommendations: Aggressive medical therapy with aspirin Plavix and heparin was initiated. Antibiotic management as internal medicine Continue close ICU care for now as needed Respiratory care will be continued Diuresis as tolerated. However currently unable to diurese due to low blood pr essure Diabetic control as per internal medicine. Insulin. I have started the patient high-dose statin as well Urinary angiogram left heart catheterization right heart catheterization possible percutaneous coronary intervention has been discussed extensively with patient her son and her granddaughter who also translated for me. Risks benefits alternative procedure include not limited to risk of infection vascular consultation bleeding complication [place] stroke arrhythmia renal failure etc. discussed with them. Patient and family are currently hesitant and they want to talk to the other family members to are not here. We will schedule the patient for a coronary angiogram possible PCI tomorrow if family agrees to. Continue with close ICU care monitoring for now More than 45 minutes critical care time was for management treatment is critically patient excluding any procedures. Thank you for his referral. We will continue to follow along with you LUIS A AGUILERA MD [facility] Consultation Date/Type/Reason Admit Date/Time September 14, 2018 Date of Consultation: Sep 15, 2018 Type of Consult Cardiology Reason for Consultation + TROP . Requesting Provider: HAYLEY ARREDONDO Date/Time of Note DATE: 09/15/18 TIME: 16:09 Hx of Present Illness Interventional cardiology consultation note Chief complaint: Shortness of breath chest pain dizziness Reason for consult: Abnormal troponin arrhythmia History of present illness: Thank you for this referral. History was obtained from the patient will discussion with her son discussion with her granddaughter from discussion multiple physicians and staff. This is a very pleasant 82-year-old [place] female with history of diabetes hypertension dyslipidemia who came to emergency room above complaint. Patient has had intermittent chest discomfort over the past week. Yesterday she felt dizzy lightheaded. She also had some chest pain anteriorly. Came to emergency room. Patient has been transferred to ICU. Immediately has gone to junctional rhythm of atrial fibrillation. Heart rate overall remained stable. Family has chest pain currently chest pain-free though. Patient was also been worked up for sepsis and was hypotensive and required to be on Levophed drip which has been turned off at the moment. Her troponin has been rising for which I was kindly asked to evaluate and treat. No fever is reported by the family Allergies: No known drug allergies Medications were reviewed as per medical reconciliation sheet Family history: No reported history of early coronary artery disease Social history: Does not smoke or drink Past medical history: Diabetes hypertension dyslipidemia. Patient and family are unaware of any ca rdiac disorders Review of system: Patient does not walk much Patient denies all others except for above-mentioned Past Medical History Home Meds Reported Medications Rosiglitazone Maleate* (Avandia*) 8 Mg Tablet 10/25/10 Cyclobenzaprine Hcl* (Cyclobenzaprine Hcl*) 10 Mg Tablet 10/25/10 Diclofenac Sodium* (Voltaren*) 25 Mg Tablet.dr 10/25/10 Carvedilol* (Carvedilol*) 25 Mg Tablet 10/25/10 Valsartan* (Diovan*) 80 Mg Tablet 10/25/10 Simvastatin* (Zocor*) 20 Mg Tablet 10/25/10 Folic Acid* (Folic Acid*) 1 Mg Tablet 10/25/10 Metformin Hcl* (Metformin Hcl*) 1,000 Mg Tablet 10/25/10 Nifedipine (Nifedipine XL) 30 Mg/Bottle Tab.osm.24 10/25/10 Aspirin (Aspirin) 81 Mg Tablet 10/25/10 Nifedipine* (Nifedipine ER*) 60 Mg Tablet.sa 10/25/10 Medications Current Medications IV Flush (NS 3 ml) 3 ml PER PROTOCOL IV ; Start 09/14/18 at 19:30 Ondansetron HCl (Zofran Inj) 4 mg Q6H PRN IV NAUSEA/VOMITING; Start 09/14/18 at 19:30 Acetaminophen (Tylenol Tab) 650 mg Q6H PRN PO .PAIN 1-3 OR TEMP; Start 09/14/18 at 19:30 Acetaminophen/ Hydrocodone Bitart ([place] (5/325)) 1 tab Q6H PRN PO .MOD PAIN 4- 6 Last administered on 09/14/18at 22:07; Admin Dose 1 TAB; Start 09/14/18 at 19:30 Morphine Sulfate (morphine) 2 mg Q4H PRN IV .SEVERE PAIN 7-10 Last administered on 09/15/18 11:21; Admin Dose 2 MG; Start 09/14/18 at 19:30 Docusate Sodium (Colace) 100 mg Q12H PRN PO .CONSTIPATION; Start 09/14/18 at 19:30 Zolpidem Tartrate (Ambien) 5 mg QHS PRN PO .INSOMNIA; Start 09/14/18 at 19:30 Aspirin (Aspirin) 81 mg DAILY PO Last administered on 09/15/18 09:00; Admin Dose 81 MG; Start 09/15/18 at 09:00 Diagnostic Test (Pha) (Accu-Chek) 1 ea 02 XX Last administered on 09/15/18 01:41; Admin Dose 1 EA; Start 09/15/18 at 02:00 Insulin Aspart (Novolog Insulin Pen) NOVOLOG *MILD* ALGORITHM WITH MEALS BEDTIME SC Last administered on 09/15/18 11:39; Admin Dose 4 UNIT; Start 09/14/18 at 21:00 Budesonide (Pulmicort (Neb)) 0.5 mg BID RESP THERAPY HHN Last administered on 09/15/18 09:59; Admin Dose 0.5 MG; Start 09/15/18 at 09:00 Albuterol/ Ipratropium (Duoneb) 3 ml Q2H RESP THERAPY PRN HHN shortness of breath; Start 09/15/18 at 00:00 Albuterol/ Ipratropium (Duoneb) 3 ml Q6H RESP THERAPY HHN Last administered on 09/15/18 14:55; Admin Dose 3 ML; Start 09/15/18 at 02:00 Nitroglycerin (Nitroglycerin (Sl Tab) 0.4 Mg) 1 tab Q5M PRN SL ANGINA; Start 09/15/18 at 00:00 Piperacillin Sod/ Tazobactam Sod 50 ml @ 100 mls/hr Q6 IVPB Last administered on 09/15/18 11:26; Admin Dose 100 MLS/HR; Start 09/15/18 at 00:16 Heparin Sodium (Porcine) (Heparin (1000 Units/ml)) 4,000 unit PER PROTOCOL PRN IV aPTT<47; Start 09/15/18 at 02:00 Heparin Sodium (Porcine) 250 ml @ 8.5 mls/hr PER PROTOCOL IV Last administered on 09/15/18at 02:24; Admin Dose 8.5 MLS/HR; Start 09/15/18 at 02:00 Norepinephrine 16 mg/Dextrose 250 ml @ 0.94 mls/hr TITRATE IV Last administered on 09/15/18at 06:26; Admin Dose 0.94 MLS/HR; Start 09/15/18 at 05:30 Insulin Glargine (Lantus) 12 units DAILY SC Last administered on 09/15/18at 14:14; Admin Dose 12 UNITS; Start 09/15/18 at 13:30 Sodium Bicarbonate 100 meq/Sodium Chloride 1,100 ml @ 80 mls/hr [id number] IV ; Start 09/15/18 at 16:00 Clopidogrel Bisulfate (plaVIX) 300 mg ONCE ONCE PO ; Start 09/15/18 at 16:30; Stop 09/15/18 at 16:31; Status UNV Allergies: Coded Allergies: No Known Allergy (Verified Allergy, Unknown, 10/25/10) Social History Alcohol Use: rarely Smoking Status: Never smoker Drug Use: none Exam/Review of Systems Vital Signs Vitals Vital Signs Date Temp Pulse Resp B/P (MAP) Pulse Ox O2 O2 Flow FiO2 Time Delivery Rate 09/15/18 73 97 6.0 14:56 09/15/18 18 116/64 14:30 (81) 09/15/18 Nasal 14:00 Cannula 09/15/18 97.5 12:00 09/15/18 61 01:30 Intake and Output 09/14/18 09/14/18 09/15/18 1515:00 23:00 07:00 IntakeIntake Total 50 ml 1098.5 ml BalanceBalance 50 ml 1098.5 ml Exam Exam General: Elderly female. Appears older than stated age no acute distress HEENT: NC/AT. pupils are equal. round. NECK: NO JVD. no stridor. CV: RRR. systolic murmur; no gallop or rubs. PULM: no wheezing + rhonchi. GI: SOFT, NT, ND, no rebound or guarding Extremity: trace B/L LE edema. no clubbing. neuro: awake and alert, OX3. Psych: calm and pleasant rectal: deferred X-ray done 09/14/2018 shows:Cardiomegaly, with increased mild failure. EKG was personally reviewed which shows: Atrial fibrillation/junctional rhythm with left bundle branch block Echocardiogram was personally reviewed shows: Moderate left ventricular systolic dysfunction. Ejection fraction is visually estimated at 30-35 %. Tissue Doppler/Mitral Doppler indices are consistent with restrictive physiology with markedly elevated left atrial pressure (Stage III-IV diastolic dysfunction). Multiple segmental wall motion abnormalities. There is moderate enlargement of left atrium. There is mild enlargement of right atrium. Moderate mitral leaflet calcification. Moderate mitral annular calcification. Moderate to severe mitral valve regurgitation. Aortic valve not well visualized. Moderate to severe aortic stenosis however due to low cardiac output severity of aortic stenosis is underestimated. Aortic valve area 0.90 cm2. Mild to moderate aortic valve regurgitation. Normal appearance of the tricuspid valve. There is moderate tricuspid regurgitation. Dilated inferior vena cava with poor inspiratory collapse consistent with elevated right atrial pressures. Labs Result Diagram: 09/15/18 0507 09/15/18 0507 Results 24hrs Laboratory Tests Test 09/14/18 17:17 09/14/18 17:49 09/14/18 19:48 09/14/18 22:12 Urine Color YELLOW Urine Clarity SLIGHTLY CLOUDY A Urine pH 5.0 Urine Specific 1.019 [place] Urine Ketones NEGATIVE Urine Nitrite NEGATIVE Urine Bilirubin NEGATIVE Urine 1+ H Urobilinogen Urine Leukocyte 2+ H Esterase Urine 9 H Microscopic RBC Urine 49 H Microscopic WBC Urine Squamous FEW Epithelial Cell s Urine Mucus FEW A Urine 1+ H Hemoglobin Urine Glucose NEGATIVE Urine Total 1+ H Protein POC Venous 1.6 Lactate Lactic Acid 1.2 Level Bedside Glucose 199 Test 09/14/18 23:37 09/15/18 00:53 09/15/18 01:15 09/15/18 01:40 Blood Gas Blood arterial Blood Specimen arterial Source Arterial Blood 09/14/2018 11:43 09/15/2018 2:12 Date Drawn :22 PM :05 AM Arterial Blood 6.996 *L 7.261 *L pH (Temp corrected ) Arterial Blood 42.0 35.2 pCO2 (Temp correct) Arterial Blood 113.2 H 99.6 H pO2 (Temp corrected ) Arterial Blood 10.0 L 15.5 L HCO3 Arterial Blood -20.5 L -10.6 L Base Excess Arterial Blood 95.1 96.0 Oxygen Saturati on Aroldo Test ACCEPTAB ACCEPTAB Arterial Blood Right Radial Right Radial Gas Puncture Site Arterial 0.2 0.2 Blood Carboxyhe moglobin Arterial Blood 0.1 0.3 Methemoglobin Blood Gas A-a 275.6 H 296.7 H O2 Differential Oxyhemoglobin 94.8 95.5 Percent Blood Gas 37.0 37.0 Temperature Blood Gas 32 32 Actual Respiration Rat e Blood Gas MASK - SIMPLE SIMPLE MASK Modality FiO2 61.0 61.0 Blood Gas Deepak LINTON R. RN Critical Value Read Back Blood Gas LÓPEZ CAREY Notified Whom Blood Gas 09/14/2018 11:57 09/15/2018 2:34 Notified Time :06 PM :32 AM Sodium Level 144 Potassium Level 4.8 Chloride Level 112 H Carbon Dioxide 19 L Level Anion Gap 13 Blood Urea 23 H Nitrogen Creatinine 1.22 H Est Glomerular Filtrat Rate mL/min Glucose Level 300 H Lactic Acid 7.9 *H Level Calcium Level 7.7 L Total Bilirubin 0.2 Direct 0.00 Bilirubin Indirect 0.2 Bilirubin Aspartate Amino 65 H Transf (AST/SGO T) Alanine 52 Aminotransferas e (ALT/SGPT) Alkaline 77 Phosphatase Troponin I 1.790 *H B-Type 01242 H Natriuretic Peptide Total Protein 5.2 #L Albumin 2.5 #L Globulin 2.70 Albumin/Globuli 0.92 n Ratio Bedside Glucose 328 H Test 09/15/18 02:16 09/15/18 05:07 09/15/18 07:45 09/15/18 08:22 White Blood 13.0 #H 10.4 Count Red Blood Count 3.02 L 3.01 L Hemoglobin 9.7 L 9.9 L Hematocrit 30.9 L 31.7 L Mean 102.3 H 105.3 H Corpuscular Volume Mean 32.1 32.9 Corpuscular Hemoglobin Mean 31.4 L 31.2 L Corpuscular Hemoglobin Conc ent Red Cell 13.2 13.2 Distribution Width Platelet Count 192 167 Mean Platelet 9.4 9.6 Volume Immature 0.900 H 0.600 H Granulocytes % Neutrophils % 77.4 H 80.1 H Lymphocytes % 14.3 L 13.7 L Monocytes % 7.2 5.5 Eosinophils % 0.0 0.0 Basophils % 0.2 0.1 Nucleated Red 0.0 0.0 Blood Cells % Immature 0.120 H 0.060 H Granulocytes # Neutrophils # 10.0 H 8.3 H Lymphocytes # 1.9 1.4 Monocytes # 0.9 0.6 Eosinophils # 0.0 0.0 Basophils # 0.0 0.0 Nucleated Red 0.0 0.0 Blood Cells # Prothrombin 17.7 #H Time Prothrombin 1.4 Time Ratio INR 1.45 International Normalized Rati o Activated 28.9 126.1 *H Partial Thrombo plast Time Sodium Level 143 Potassium Level 5.0 Chloride Level 109 Carbon Dioxide 16 L Level Anion Gap 18 H Blood Urea 22 H Nitrogen Creatinine 1.47 H Est Glomerular Filtrat Rate mL/min Glucose Level 264 H Hemoglobin A1c 5.7 Calcium Level 7.3 L Phosphorus 4.8 Level Magnesium Level 1.8 Troponin I 1.990 *H Triglycerides 69 Level Cholesterol 71 L Level LDL 28 Cholesterol, Calculated HDL Cholesterol 29 L Cholesterol/HDL 2.4 Ratio Free Thyroxine 3.62 Index Thyroxine (T4) 6.9 Triiodothyronin 52.5 H e (T3) Uptake Bedside Glucose 236 H Test 09/15/18 10:41 09/15/18 11:10 09/15/18 11:29 Lactic Acid 2.9 *H Level Troponin I 3.400 *H Blood Gas Blood arterial Specimen Source Arterial Blood 09/15/2018 11:53 Date Drawn :50 AM Arterial Blood 7.234 *L pH (Temp corrected ) Arterial Blood 43.5 pCO2 (Temp correct) Arterial Blood 73.0 L pO2 (Temp corrected ) Arterial Blood 18.0 L HCO3 Arterial Blood -9.1 L Base Excess Arterial Blood 92.1 L Oxygen Saturati on Aroldo Test ACCEPTAB Arterial Blood Left Radial Gas Puncture Site Arterial 0 Blood Carboxyhe moglobin Arterial Blood 0 Methemoglobin Blood Gas A-a 234.6 H O2 Differential Oxyhemoglobin 92.1 L Percent Blood Gas 37.0 Temperature Blood Gas MASK - VENTI Modality FiO2 50.0 Blood Gas Tania BARTHOLOMEW RN Critical Value Read Back Blood Gas Notified Whom Blood Gas 09/15/2018 12:04 Notified Time :30 PM Bedside Glucose 261 H Medications Medications Current Medications IV Flush (NS 3 ml) 3 ml PER PROTOCOL IV ; Start 09/14/18 at 19:30 Ondansetron HCl (Zofran Inj) 4 mg Q6H PRN IV NAUSEA/VOMITING; Start 09/14/18 at 19:30 Acetaminophen (Tylenol Tab) 650 mg Q6H PRN PO .PAIN 1-3 OR TEMP; Start 09/14/18 at 19:30 Acetaminophen/ Hydrocodone Bitart ([place] (5/325)) 1 tab Q6H PRN PO .MOD PAIN 4- 6 Last administered on 09/14/18 22:07; Admin Dose 1 TAB; Start 09/14/18 at 19:30 Morphine Sulfate (morphine) 2 mg Q4H PRN IV .SEVERE PAIN 7-10 Last administered on 09/15/18 11:21; Admin Dose 2 MG; Start 09/14/18 at 19:30 Docusate Sodium (Colace) 100 mg Q12H PRN PO .CONSTIPATION; Start 09/14/18 at 19:30 Zolpidem Tartrate (Ambien) 5 mg QHS PRN PO .INSOMNIA; Start 09/14/18 at 19:30 Aspirin (Aspirin) 81 mg DAILY PO Last administered on 09/15/18 09:00; Admin Dose 81 MG; Start 09/15/18 at 09:00 Diagnostic Test (Pha) (Accu-Chek) 1 ea 02 XX Last administered on 09/15/18 01:41; Admin Dose 1 EA; Start 09/15/18 at 02:00 Insulin Aspart (Novolog Insulin Pen) NOVOLOG *MILD* ALGORITHM WITH MEALS BEDTIME SC Last administered on 09/15/18 11:39; Admin Dose 4 UNIT; Start 09/14/18 at 21:00 Budesonide (Pulmicort (Neb)) 0.5 mg BID RESP THERAPY HHN Last administered on 09/15/18 09:59; Admin Dose 0.5 MG; Start 09/15/18 at 09:00 Albuterol/ Ipratropium (Duoneb) 3 ml Q2H RESP THERAPY PRN HHN shortness of breath; Start 09/15/18 at 00:00 Albuterol/ Ipratropium (Duoneb) 3 ml Q6H RESP THERAPY HHN Last administered on 09/15/18at 14:55; Admin Dose 3 ML; Start 09/15/18 at 02:00 Nitroglycerin (Nitroglycerin (Sl Tab) 0.4 Mg) 1 tab Q5M PRN SL ANGINA; Start 09/15/18 at 00:00 Piperacillin Sod/ Tazobactam Sod 50 ml @ 100 mls/hr Q6 IVPB Last administered on 09/15/18at 11:26; Admin Dose 100 MLS/HR; Start 09/15/18 at 00:16 Heparin Sodium (Porcine) (Heparin (1000 Units/ml)) 4,000 unit PER PROTOCOL PRN IV aPTT<47; Start 09/15/18 at 02:00 Heparin Sodium (Porcine) 250 ml @ 8.5 mls/hr PER PROTOCOL IV Last administered on 09/15/18at 02:24; Admin Dose 8.5 MLS/HR; Start 09/15/18 at 02:00 Norepinephrine 16 mg/Dextrose 250 ml @ 0.94 mls/hr TITRATE IV Last administered on 09/15/18at 06:26; Admin Dose 0.94 MLS/HR; Start 09/15/18 at 05:30 Insulin Glargine (Lantus) 12 units DAILY SC Last administered on 09/15/18at 14:14; Admin Dose 12 UNITS; Start 09/15/18 at 13:30 Sodium Bicarbonate 100 meq/Sodium Chloride 1,100 ml @ 80 mls/hr [id number] IV ; Start 09/15/18 at 16:00 Clopidogrel Bisulfate (plaVIX) 300 mg ONCE ONCE PO ; Start 09/15/18 at 16:30; Stop 09/15/18 at 16:31; Status LUIS A JONES MD Sep 15, 2018 16:23
[2018-09-15] MEDS ORDERED: CLOPIDOGREL 75 MG TAB PO ONE (16:30)
[2018-09-15] MEDS: SODIUM BICARBONATE (IV ADD) 100 MEQ in SOD CHLORIDE 0.45% 1,000 ML IV SCH (16:35)
[2018-09-15] MEDS: ATORVASTATIN 80 MG TAB PO SCH (20:21)
[2018-09-16] VITALS (25 sets, daily range): BP systolic 67–172; BP diastolic 49–102; PULSE 72–93; RESP 13–24
[2018-09-16] MEDS: PIPER-TAZO 2.25 GM/NS 50 ML IVPB SCH ×5 (00:10→23:52)
[2018-09-16] MEDS: ACCU-CHEK XX SCH (02:07)
[2018-09-16] MEDS: ALBUTEROL/IPRATROPIUM (NEB) 3 ML AMP HHN SCH ×4 (02:58→19:29)
[2018-09-16] MEDS: SODIUM BICARBONATE (IV ADD) 100 MEQ in SOD CHLORIDE 0.45% 1,000 ML IV SCH (05:15)
[2018-09-16] MEDS: morphine 2 MG INJ IV PRN (05:50)
--- NOTE | 2018-09-16 08:24 | CONS ---
Consult Date/Type/Reason Admit Date/Time Sep 14, 2018 at 17:13 Initial Consult Date 09/15/18 Type of Consultation: cv Requesting Provider: HAYLEY ARREDONDO Date/Time of Note DATE: 09/16/18 TIME: 08:23 Subjective Interventional cardiology follow-up progress note Subjective: Case discussed with staff. Discussed with multiple family members at the bedside. Telemetry was reviewed. Patient appears to be in sinus rhythm versus junctional. No bleeding is reported no report of chest pain or pressure Objective: General: Elderly female. Appears older than stated age no acute distress HEENT: NC/AT. pupils are equal. round. NECK: NO JVD. no stridor. CV: RRR. systolic murmur; no gallop or rubs. PULM: no wheezing + rhonchi. GI: SOFT, NT, ND, no rebound or guarding Extremity: trace B/L LE edema. no clubbing. neuro: awake and alert, OX3. Psych: calm and pleasant rectal: deferred X-ray done 09/14/2018 shows:Cardiomegaly, with increased mild failure. EKG was personally reviewed which shows: Atrial fibrillation/junctional rhythm with left bundle branch block Echocardiogram was personally reviewed shows: Moderate left ventricular systolic dysfunction. Ejection fraction is visually estimated at 30-35 %. Tissue Doppler/Mitral Doppler indices are consistent with restrictive physiology with markedly elevated left atrial pressu re (Stage III-IV diastolic dysfunction). Multiple segmental wall motion abnormalities. There is moderate enlargement of left atrium. There is mild enlargement of right atrium. Moderate mitral leaflet calcification. Moderate mitral annular calcification. Moderate to severe mitral valve regurgitation. Aortic valve not well visualized. Moderate to severe aortic stenosis however due to low cardiac output severity of aortic stenosis is underestimated. Aortic valve area 0.90 cm2. Mild to moderate aortic valve regurgitation. Normal appearance of the tricuspid valve. There is moderate tricuspid regurgitation. Dilated inferior vena cava with poor inspiratory collapse consistent with elevated right atrial pressures. Objective Vitals Vital Signs Date Temp Pulse Resp B/P (MAP) Pulse Ox O2 O2 Flow FiO2 Time Delivery Rate 09/16/18 83 20 116/70 93 Nasal 06:00 (85) Cannula 09/16/18 97.6 04:00 09/16/18 6.0 02:58 09/15/18 100 09:48 Intake and Output 09/15/18 09/15/18 09/16/18 1414:59 22:59 06:59 IntakeIntake Total 495.46 ml 1303.4 ml 740 ml OutputOutput Total 535 ml 315 ml 380 ml BalanceBalance -39.54 ml 988.4 ml 360 ml Results/Medications Result Diagram: 09/16/1839909/16/180 Results 24 hrs Laboratory Tests Test 09/15/18 10:41 09/15/18 11:10 09/15/18 11:29 09/15/18 15:00 Lactic Acid 2.9 *H Level Troponin I 3.400 *H Blood Gas Blood arterial Specimen Source Arterial Blood 09/15/2018 11:53 Date Drawn :50 AM Arterial Blood 7.234 *L pH (Temp corrected) Arterial Blood 43.5 pCO2 (Temp correct) Arterial Blood 73.0 L pO2 (Temp corrected) Arterial Blood 18.0 L HCO3 Arterial Blood -9.1 L Base Excess Arterial Blood 92.1 L Oxygen Saturatio n Aroldo Test ACCEPTAB Arterial Blood Left Radial Gas Puncture Site Arterial 0 Blood Carboxyhem oglobin Arterial Blood 0 Methemoglobin Blood Gas A-a O2 234.6 H Differential Oxyhemoglobin 92.1 L Percent Blood Gas 37.0 Temperature Blood Gas MASK - VENTI Modality FiO2 50.0 Blood Gas Tania BARTHOLOMEW RN Critical Value Read Back Blood Gas Notified Whom Blood Gas 09/15/2018 12:04 Notified Time :30 PM Bedside Glucose 261 H Urine 0.0 Eosinophils % Urine Random 135.23 Creatinine Urine Random 56 Sodium Urine 0.85 Protein/Creatini ne Ratio Urine Total 116.0 H Protein Test 09/15/18 16:20 09/15/18 17:21 09/15/18 20:21 09/15/18 23:40 Activated 113.2 *H 47.3 H Partial Thrombop last Time Lactic Acid 1.6 Level Troponin I 6.710 *H Bedside Glucose 215 162 Test 09/16/18 02:07 09/16/18 04:00 09/16/18 07:00 Bedside Glucose 147 White Blood 12.7 #H Count Red Blood Count 2.90 L Hemoglobin 9.4 L Hematocrit 28.3 L Mean Corpuscular 97.6 Volume Mean Corpuscular 32.4 Hemoglobin Mean Corpuscular 33.2 Hemoglobin Myrna nt Red Cell 13.0 Distribution Width Platelet Count 158 Mean Platelet 10.1 Volume Immature 1.100 H Granulocytes % Neutrophils % 87.1 H Lymphocytes % 7.5 L Monocytes % 4.1 Eosinophils % 0.0 Basophils % 0.2 Nucleated Red 0.0 Blood Cells % Immature 0.140 H Granulocytes # Neutrophils # 11.1 H Lymphocytes # 1.0 Monocytes # 0.5 Eosinophils # 0.0 Basophils # 0.0 Nucleated Red 0.0 Blood Cells # Prothrombin Time 20.5 H Prothrombin Time 1.6 Ratio INR 1.75 International Normalized Ratio Activated 55.5 H Partial Thrombop last Time Sodium Level 142 Potassium Level 3.9 Chloride Level 103 Carbon Dioxide 26 # Level Anion Gap 13 Blood Urea 27 H Nitrogen Creatinine 1.41 H Est Glomerular Filtrat Rate mL/min Glucose Level 161 # Uric Acid 6.9 Calcium Level 7.9 L Magnesium Level 2.2 Creatine Kinase 142 Creatine Kinase 4.9 Index Creatinine 7.02 H Kinase MB (Mass) Troponin I 4.930 *H Blood Gas Blood arterial Specimen Source Arterial Blood 09/16/2018 7:21: Date Drawn 17 AM Arterial Blood 7.405 pH (Temp corrected) Arterial Blood 39.0 pCO2 (Temp correct) Arterial Blood 60.9 L pO2 (Temp corrected) Arterial Blood 23.9 HCO3 Arterial Blood -0.7 Base Excess Arterial Blood 90.5 L Oxygen Saturatio n Aroldo Test N/A Arterial Blood Right Brachial Gas Puncture Site Arterial 0.1 Blood Carboxyhem oglobin Arterial Blood 0 Methemoglobin Blood Gas A-a O2 172.2 H Differential Oxyhemoglobin 90.4 L Percent Blood Gas 37.0 Temperature Blood Gas NASAL CANNULA Modality FiO2 39.0 Blood Gas TM Notified Whom Blood Gas 09/16/2018 7:34: Notified Time 45 AM Home Meds Reported Medications Rosiglitazone Maleate* (Avandia*) 8 Mg Tablet 10/25/10 Cyclobenzaprine Hcl* (Cyclobenzaprine Hcl*) 10 Mg Tablet 10/25/10 Diclofenac Sodium* (Voltaren*) 25 Mg Tablet. 10/25/10 Carvedilol* (Carvedilol*) 25 Mg Tablet 10/25/10 Valsartan* (Diovan*) 80 Mg Tablet 10/25/10 Simvastatin* (Zocor*) 20 Mg Tablet 10/25/10 Folic Acid* (Folic Acid*) 1 Mg Tablet 10/25/10 Metformin Hcl* (Metformin Hcl*) 1,000 Mg Tablet 10/25/10 Nifedipine (Nifedipine XL) 30 Mg/Bottle Tab.osm.24 10/25/10 Aspirin (Aspirin) 81 Mg Tablet 10/25/10 Nifedipine* (Nifedipine ER*) 60 Mg Tablet.sa 10/25/10 Medications Current Medications IV Flush (NS 3 ml) 3 ml PER PROTOCOL IV ; Start 09/14/18 at 19:30 Ondansetron HCl (Zofran Inj) 4 mg Q6H PRN IV NAUSEA/VOMITING; Start 09/14/18 at 19:30 Acetaminophen (Tylenol Tab) 650 mg Q6H PRN PO .PAIN 1-3 OR TEMP; Start 09/14/18 at 19:30 Acetaminophen/ Hydrocodone Bitart ([place] (5/325)) 1 tab Q6H PRN PO .MOD PAIN 4- 6 Last administered on 09/14/18at 22:07; Admin Dose 1 TAB; Start 09/14/18 at 19:30 Morphine Sulfate (morphine) 2 mg Q4H PRN IV .SEVERE PAIN 7-10 Last administered on 09/16/18at 05:50; Admin Dose 2 MG; Start 09/14/18 at 19:30 Docusate Sodium (Colace) 100 mg Q12H PRN PO .CONSTIPATION; Start 09/14/18 at 19:30 Zolpidem Tartrate (Ambien) 5 mg QHS PRN PO .INSOMNIA; Start 09/14/18 at 19:30 Aspirin (Aspirin) 81 mg DAILY PO Last administered on 09/15/18at 09:00; Admin Dose 81 MG; Start 09/15/18 at 09:00 Diagnostic Test (Pha) (Accu-Chek) 1 ea 02 XX Last administered on 09/16/18at 02:07; Admin Dose 1 EA; Start 09/15/18 at 02:00 Insulin Aspart (Novolog Insulin Pen) NOVOLOG *MILD* ALGORITHM WITH MEALS BEDTIME SC Last administered on 09/15/18at 17:25; Admin Dose 2 UNIT; Start 09/14/18 at 21:00 Budesonide (Pulmicort (Neb)) 0.5 mg BID RESP THERAPY HHN Last administered on 09/15/18at 20:56; Admin Dose 0.5 MG; Start 09/15/18 at 09:00 Albuterol/ Ipratropium (Duoneb) 3 ml Q2H RESP THERAPY PRN HHN shortness of breath; Start 09/15/18 at 00:00 Albuterol/ Ipratropium (Duoneb) 3 ml Q6H RESP THERAPY HHN Last administered on 09/16/18 02:58; Admin Dose 3 ML; Start 09/15/18 at 02:00 Nitroglycerin (Nitroglycerin (Sl Tab) 0.4 Mg) 1 tab Q5M PRN SL ANGINA; Start 09/15/18 at 00:00 Piperacillin Sod/ Tazobactam Sod 50 ml @ 100 mls/hr Q6 IVPB Last administered on 09/16/18 05:16; Admin Dose 100 MLS/HR; Start 09/15/18 at 00:16 Heparin Sodium (Porcine) (Heparin (1000 Units/ml)) 4,000 unit PER PROTOCOL PRN IV aPTT<47; Start 09/15/18 at 02:00 Heparin Sodium (Porcine) 250 ml @ 8.5 mls/hr PER PROTOCOL IV Last administered on 09/15/18 02:24; Admin Dose 8.5 MLS/HR; Start 09/15/18 at 02:00 Norepinephrine 16 mg/Dextrose 250 ml @ 0.94 mls/hr TITRATE IV Last administered on 09/15/18 06:26; Admin Dose 0.94 MLS/HR; Start 09/15/18 at 05:30 Insulin Glargine (Lantus) 12 units DAILY SC Last administered on 09/15/18 14:14; Admin Dose 12 UNITS; Start 09/15/18 at 13:30 Sodium Bicarbonate 100 meq/Sodium Chloride 1,100 ml @ 80 mls/hr [id number] IV Last administered on 09/16/18 05:15; Admin Dose 80 MLS/HR; Start 09/15/18 at 16:00 Atorvastatin Calcium (Lipitor) 80 mg HS PO Last administered on 09/15/18 20:21; Admin Dose 80 MG; Start 09/15/18 at 21:00 Assessment/Plan Hospital Course (Demo Recall) 1. Non-ST elevation myocardial infarction 2. Congestive heart failure appears acute secondary systolic heart failure 3. Sepsis and shock 4. Arrhythmias with proximal atrial fibrillation /junctional rhythm 5. Severe cardiomyopathy most likely ischemic 6/ DM 7. HX HTN now hypotensive and shock 8. UTI 9. ? pneumonia 10. Acute renal failure 11. Anemia Recommendations: Aggressive medical therapy with aspirin Plavix and heparin was initiated. Antibiotic management as internal medicine. Blood cultures are negative so far Continue close ICU care for now Respiratory care will be continued Diabetic control as per internal medicine. Insulin. high-dose statin as well Coronary angiogram left heart catheterization right heart catheterization possible percutaneous coronary intervention has been discussed extensively with patient her son and her granddaughter who also translated for me. Risks benefits alternative procedure include not limited to risk of infection vascular consultation bleeding complication MO stroke arrhythmia renal failure etc. discussed with them. Higher than average risk of procedures due to her multiple comorbidity discussed with him in detail. Patient and the family have consented to the procedure. Plan for the procedure today Thank you for his referral. We will continue to follow along with you LUIS A AGUILERA MD [facility] LUIS A AGUILERA MD Sep 16, 2018 08:24
[2018-09-16] MEDS: ASPIRIN 81 MG TAB PO SCH ×2 (08:37→08:50)
[2018-09-16] MEDS: INSULIN GLARGINE [LANTus] (100 UNITS/ML) SYG SC SCH (08:37)
[2018-09-16] MEDS: INSULIN ASPART [NOVOLOG] 3 ML PEN SC SCH ×4 (08:37→21:02)
--- NOTE | 2018-09-16 08:41 | PN ---
Date/Time of Note Date/Time of Note DATE: 09/16/18 TIME: 08:33 Assessment/Plan VTE Prophylaxis Risk score (from [facility] [place])>0 risk: 9 SCD applied (from [facility] [place]): No SCD contraindicated: other Pharmacological prophylaxis: heparin Lines/Catheters IV Catheter Type (from [facility]): Central Line Central line still needed: Yes Urinary Cath still in place: Yes Reason Cath still needed: urinary retention Assessment/Plan Hospital Course A/P: 82 F p/w: 1. A. fib with RVR-resolved- Patient is status post Cardizem drip with conversion back to sinus and subsequent junctional rhythm- Patient now in sinus rhythm, A. fib likely secondary to stress from sepsis - Monitor -Follow-up results of 2D echo pending - Cardiology consultation obtained -again awaiting left heart cath later today for non-ST elevation MT 2. Sepsis with fever, tachycardia and hypotension secondary to UTI and or pneumonia -again off pressor support now. Urine culture positive for group B strep. -Continue Zosyn for now - Follow-up final cultures - IV fluids 3. Non-STEMI - Troponins have slightly increased - Cardiology consultation obtained - Continue heparin drip, again awaiting left heart catheter later today 4. Diabetes-sugars in the high normal range but improved since yesterday. -Continue Lantus, continue sliding scale 5. History hypertension -Monitor, given prior hypotension which is resolved now, continue to hold home meds 6. Normocytic anemia likely secondary chronic disease - Monitor Prophylaxis: Heparin Critical care consult on patient care today equals 45 minutes. Result Diagram: 09/16/18 0400 09/16/18 0400 Results 24hrs Laboratory Tests Test 09/15/18 10:41 09/15/18 11:10 09/15/18 11:29 09/15/18 15:00 Lactic Acid 2.9 *H Level Troponin I 3.400 *H Blood Gas Blood arterial Specimen Source Arterial Blood 09/15/2018 11:53 Date Drawn :50 AM Arterial Blood 7.234 *L pH (Temp corrected) Arterial Blood 43.5 pCO2 (Temp correct) Arterial Blood 73.0 L pO2 (Temp corrected) Arterial Blood 18.0 L HCO3 Arterial Blood -9.1 L Base Excess Arterial Blood 92.1 L Oxygen Saturatio n Aroldo Test ACCEPTAB Arterial Blood Left Radial Gas Puncture Site Arterial 0 Blood Carboxyhem oglobin Arterial Blood 0 Methemoglobin Blood Gas A-a O2 234.6 H Differential Oxyhemoglobin 92.1 L Percent Blood Gas 37.0 Temperature Blood Gas MASK - VENTI Modality FiO2 50.0 Blood Gas Tania BARTHOLOMEW RN Critical Value Read Back Blood Gas Notified Whom Blood Gas 09/15/2018 12:04 Notified Time :30 PM Bedside Glucose 261 H Urine 0.0 Eosinophils % Urine Random 135.23 Creatinine Urine Random 56 Sodium Urine 0.85 Protein/Creatini ne Ratio Urine Total 116.0 H Protein Test 09/15/18 16:20 09/15/18 17:21 09/15/18 20:21 09/15/18 23:40 Activated 113.2 *H 47.3 H Partial Thrombop last Time Lactic Acid 1.6 Level Troponin I 6.710 *H Bedside Glucose 215 162 Test 09/16/18 02:07 09/16/18 04:00 09/16/18 07:00 Bedside Glucose 147 White Blood 12.7 #H Count Red Blood Count 2.90 L Hemoglobin 9.4 L Hematocrit 28.3 L Mean Corpuscular 97.6 Volume Mean Corpuscular 32.4 Hemoglobin Mean Corpuscular 33.2 Hemoglobin Myrna nt Red Cell 13.0 Distribution Width Platelet Count 158 Mean Platelet 10.1 Volume Immature 1.100 H Granulocytes % Neutrophils % 87.1 H Lymphocytes % 7.5 L Monocytes % 4.1 Eosinophils % 0.0 Basophils % 0.2 Nucleated Red 0.0 Blood Cells % Immature 0.140 H Granulocytes # Neutrophils # 11.1 H Lymphocytes # 1.0 Monocytes # 0.5 Eosinophils # 0.0 Basophils # 0.0 Nucleated Red 0.0 Blood Cells # Prothrombin Time 20.5 H Prothrombin Time 1.6 Ratio INR 1.75 International Normalized Ratio Activated 55.5 H Partial Thrombop last Time Sodium Level 142 Potassium Level 3.9 Chloride Level 103 Carbon Dioxide 26 # Level Anion Gap 13 Blood Urea 27 H Nitrogen Creatinine 1.41 H Est Glomerular Filtrat Rate mL/min Glucose Level 161 # Uric Acid 6.9 Calcium Level 7.9 L Magnesium Level 2.2 Creatine Kinase 142 Creatine Kinase 4.9 Index Creatinine 7.02 H Kinase MB (Mass) Troponin I 4.930 *H Blood Gas Blood arterial Specimen Source Arterial Blood 09/16/2018 7:21: Date Drawn 17 AM Arterial Blood 7.405 pH (Temp corrected) Arterial Blood 39.0 pCO2 (Temp correct) Arterial Blood 60.9 L pO2 (Temp corrected) Arterial Blood 23.9 HCO3 Arterial Blood -0.7 Base Excess Arterial Blood 90.5 L Oxygen Saturatio n Aroldo Test N/A Arterial Blood Right Brachial Gas Puncture Site Arterial 0.1 Blood Carboxyhem oglobin Arterial Blood 0 Methemoglobin Blood Gas A-a O2 172.2 H Differential Oxyhemoglobin 90.4 L Percent Blood Gas 37.0 Temperature Blood Gas NASAL CANNULA Modality FiO2 39.0 Blood Gas TM Notified Whom Blood Gas 09/16/2018 7:34: Notified Time 45 AM Subjective 24 Hr Interval Summary Free Text/Dictation Patient seen by cardiology this morning. Off of pressor support. Awaiting left heart cath for later today. Exam/Review of Systems Exam Vitals Vital Signs Date Temp Pulse Resp B/P (MAP) Pulse Ox O2 O2 Flow FiO2 Time Delivery Rate 09/16/18 83 20 116/70 93 Nasal 06:00 (85) Cannula 09/16/18 97.6 04:00 09/16/18 6.0 02:58 09/15/18 100 09:48 Intake and Output 09/15/18 09/15/18 09/16/18 1515:00 23:00 07:00 IntakeIntake Total 453.26 ml 1377.1 ml 740 ml OutputOutput Total 535 ml 360 ml 335 ml BalanceBalance -81.74 ml 1017.1 ml 405 ml Exam Constitutional: alert Respiratory: clear to auscultation Cardiovascular: regular rate and rhythm Gastrointestinal: soft; No distended Musculoskeletal: nl extremities to inspection Results Results 24hrs Laboratory Tests Test 09/15/18 10:41 09/15/18 11:10 09/15/18 11:29 09/15/18 15:00 Lactic Acid 2.9 *H Level Troponin I 3.400 *H Blood Gas Blood arterial Specimen Source Arterial Blood 09/15/2018 11:53 Date Drawn :50 AM Arterial Blood 7.234 *L pH (Temp corrected) Arterial Blood 43.5 pCO2 (Temp correct) Arterial Blood 73.0 L pO2 (Temp corrected) Arterial Blood 18.0 L HCO3 Arterial Blood -9.1 L Base Excess Arterial Blood 92.1 L Oxygen Saturatio n Aroldo Test ACCEPTAB Arterial Blood Left Radial Gas Puncture Site Arterial 0 Blood Carboxyhem oglobin Arterial Blood 0 Methemoglobin Blood Gas A-a O2 234.6 H Differential Oxyhemoglobin 92.1 L Percent Blood Gas 37.0 Temperature Blood Gas MASK - VENTI Modality FiO2 50.0 Blood Gas Tania BARTHOLOMEW RN Critical Value Read Back Blood Gas Notified Whom Blood Gas 09/15/2018 12:04 Notified Time :30 PM Bedside Glucose 261 H Urine 0.0 Eosinophils % Urine Random 135.23 Creatinine Urine Random 56 Sodium Urine 0.85 Protein/Creatini ne Ratio Urine Total 116.0 H Protein Test 09/15/18 16:20 09/15/18 17:21 09/15/18 20:21 09/15/18 23:40 Activated 113.2 *H 47.3 H Partial Thrombop last Time Lactic Acid 1.6 Level Troponin I 6.710 *H Bedside Glucose 215 162 Test 09/16/18 02:07 09/16/18 04:00 09/16/18 07:00 Bedside Glucose 147 White Blood 12.7 #H Count Red Blood Count 2.90 L Hemoglobin 9.4 L Hematocrit 28.3 L Mean Corpuscular 97.6 Volume Mean Corpuscular 32.4 Hemoglobin Mean Corpuscular 33.2 Hemoglobin Myrna nt Red Cell 13.0 Distribution Width Platelet Count 158 Mean Platelet 10.1 Volume Immature 1.100 H Granulocytes % Neutrophils % 87.1 H Lymphocytes % 7.5 L Monocytes % 4.1 Eosinophils % 0.0 Basophils % 0.2 Nucleated Red 0.0 Blood Cells % Immature 0.140 H Granulocytes # Neutrophils # 11.1 H Lymphocytes # 1.0 Monocytes # 0.5 Eosinophils # 0.0 Basophils # 0.0 Nucleated Red 0.0 Blood Cells # Prothrombin Time 20.5 H Prothrombin Time 1.6 Ratio INR 1.75 International Normalized Ratio Activated 55.5 H Partial Thrombop last Time Sodium Level 142 Potassium Level 3.9 Chloride Level 103 Carbon Dioxide 26 # Level Anion Gap 13 Blood Urea 27 H Nitrogen Creatinine 1.41 H Est Glomerular Filtrat Rate mL/min Glucose Level 161 # Uric Acid 6.9 Calcium Level 7.9 L Magnesium Level 2.2 Creatine Kinase 142 Creatine Kinase 4.9 Index Creatinine 7.02 H Kinase MB (Mass) Troponin I 4.930 *H Blood Gas Blood arterial Specimen Source Arterial Blood 09/16/2018 7:21: Date Drawn 17 AM Arterial Blood 7.405 pH (Temp corrected) Arterial Blood 39.0 pCO2 (Temp correct) Arterial Blood 60.9 L pO2 (Temp corrected) Arterial Blood 23.9 HCO3 Arterial Blood -0.7 Base Excess Arterial Blood 90.5 L Oxygen Saturatio n Aroldo Test N/A Arterial Blood Right Brachial Gas Puncture Site Arterial 0.1 Blood Carboxyhem oglobin Arterial Blood 0 Methemoglobin Blood Gas A-a O2 172.2 H Differential Oxyhemoglobin 90.4 L Percent Blood Gas 37.0 Temperature Blood Gas NASAL CANNULA Modality FiO2 39.0 Blood Gas TM Notified Whom Blood Gas 09/16/2018 7:34: Notified Time 45 AM Medications Medication Current Medications IV Flush (NS 3 ml) 3 ml PER PROTOCOL IV ; Start 09/14/18 at 19:30 Ondansetron HCl (Zofran Inj) 4 mg Q6H PRN IV NAUSEA/VOMITING; Start 09/14/18 at 19:30 Acetaminophen (Tylenol Tab) 650 mg Q6H PRN PO .PAIN 1-3 OR TEMP; Start 09/14/18 at 19:30 Acetaminophen/ Hydrocodone Bitart ([place] (5/325)) 1 tab Q6H PRN PO .MOD PAIN 4- 6 Last administered on 09/14/18at 22:07; Admin Dose 1 TAB; Start 09/14/18 at 19:30 Morphine Sulfate (morphine) 2 mg Q4H PRN IV .SEVERE PAIN 7-10 Last administered on 09/16/18at 05:50; Admin Dose 2 MG; Start 09/14/18 at 19:30 Docusate Sodium (Colace) 100 mg Q12H PRN PO .CONSTIPATION; Start 09/14/18 at 19:30 Zolpidem Tartrate (Ambien) 5 mg QHS PRN PO .INSOMNIA; Start 09/14/18 at 19:30 Aspirin (Aspirin) 81 mg DAILY PO Last administered on 09/15/18at 09:00; Admin Dose 81 MG; Start 09/15/18 at 09:00 Diagnostic Test (Pha) (Accu-Chek) 1 ea 02 XX Last administered on 09/16/18at 02:07; Admin Dose 1 EA; Start 09/15/18 at 02:00 Insulin Aspart (Novolog Insulin Pen) NOVOLOG *MILD* ALGORITHM WITH MEALS BEDTIME SC Last administered on 09/15/18 17:25; Admin Dose 2 UNIT; Start 09/14/18 at 21:00 Budesonide (Pulmicort (Neb)) 0.5 mg BID RESP THERAPY HHN Last administered on 09/15/18 20:56; Admin Dose 0.5 MG; Start 09/15/18 at 09:00 Albuterol/ Ipratropium (Duoneb) 3 ml Q2H RESP THERAPY PRN HHN shortness of breath; Start 09/15/18 at 00:00 Albuterol/ Ipratropium (Duoneb) 3 ml Q6H RESP THERAPY HHN Last administered on 09/16/18 02:58; Admin Dose 3 ML; Start 09/15/18 at 02:00 Nitroglycerin (Nitroglycerin (Sl Tab) 0.4 Mg) 1 tab Q5M PRN SL ANGINA; Start 09/15/18 at 00:00 Piperacillin Sod/ Tazobactam Sod 50 ml @ 100 mls/hr Q6 IVPB Last administered on 09/16/18 05:16; Admin Dose 100 MLS/HR; Start 09/15/18 at 00:16 Heparin Sodium (Porcine) (Heparin (1000 Units/ml)) 4,000 unit PER PROTOCOL PRN IV aPTT<47; Start 09/15/18 at 02:00 Heparin Sodium (Porcine) 250 ml @ 8.5 mls/hr PER PROTOCOL IV Last administered on 09/15/18 02:24; Admin Dose 8.5 MLS/HR; Start 09/15/18 at 02:00 Norepinephrine 16 mg/Dextrose 250 ml @ 0.94 mls/hr TITRATE IV Last administered on 09/15/18 06:26; Admin Dose 0.94 MLS/HR; Start 09/15/18 at 05:30 Insulin Glargine (Lantus) 12 units DAILY SC Last administered on 09/15/18 14:14; Admin Dose 12 UNITS; Start 09/15/18 at 13:30 Sodium Bicarbonate 100 meq/Sodium Chloride 1,100 ml @ 80 mls/hr [id number] IV Last administered on 09/16/18 05:15; Admin Dose 80 MLS/HR; Start 09/15/18 at 16:00 Atorvastatin Calcium (Lipitor) 80 mg HS PO Last administered on 2/18/19at 20:21; Admin Dose 80 MG; Start 09/15/18 at 21:00 JOE BERNABE Sep 16, 2018 08:41
[2018-09-16] MEDS: BUDESONIDE (NEB) 0.5MG/2ML AMP HHN SCH ×2 (09:17→19:29)
[2018-09-16] MEDS ORDERED: LIDOCAINE 1% (MDV) 20 ML INJ ONE (10:04)
[2018-09-16] MEDS ORDERED: IODIXANOL LOCM 100 ML BTL ONE (10:04)
[2018-09-16] MEDS ORDERED: MIDAZOLAM 1 MG/ML 2 ML INJ ONE (10:05)
[2018-09-16] MEDS ORDERED: FENTAnyl 50 MCG/ML VIAL ONE (10:05)
--- NOTE | 2018-09-16 10:27 | CONS ---
Assessment/Plan Assessment/Plan Assessment/Plan (Daily) 1. acute Renal failure 2/2 Hemodynamics from CHF 2. acute CHF, possibly systolic with low EF 3. atrial fibrillation with RVR 5. septich shock possibly due to UTI 6. UTI with Urine cx growing Group B streptoccoci 7. Acute NSTEMI s/p LHC on 09/15/18 that showed multivessel obstructive CAD 8. h/o HTN 9. H/o DM II 10. H/o HL 11. metabolic acidosis due to Septic shock + renal failure Plan: d/c bicarbonate drip now, HCo3 improved to 26, , BUN/Cr 27/1.41, BP stable, Electrolytes stable today S/p LHC that showed multivessel obstructive CAD- CT surgery consulted for possib le evaluation for CABG IV abx zosyn for sepsis, renally dose all abx and monitor electrolytes Levophed for septic shock will follow up Consultation Date/Type/Reason Admit Date/Time Sep 14, 2018 at 17:13 Initial Consult Date 09/15/18 Type of Consult NEPHROLOGY Requesting Provider: HAYLEY ARREDONDO Date/Time of Note DATE: 09/16/18 TIME: 10:27 24 HR Interval Summary Free Text/Dictation plan for LHC today , BUN/Cr 27/1.41, afebrile, Exam/Review of Systems Exam Vitals Vital Signs Date Temp Pulse Resp B/P (MAP) Pulse Ox O2 O2 Flow FiO2 Time Delivery Rate 09/16/18 80 21 96 Nasal 6.0 09:04 Cannula 09/16/18 122/66 09:00 (84) 09/16/18 97.6 08:00 09/15/18 100 09:48 Intake and Output 09/15/18 09/15/18 09/16/18 1515:00 23:00 07:00 IntakeIntake Total 453.26 ml 1377.1 ml 740 ml OutputOutput Total 535 ml 360 ml 395 ml BalanceBalance -81.74 ml 1017.1 ml 345 ml Exam EXAM: Constitutional: alert Psych: no complaints Head: normocephalic Eyes: nl conjunctiva ENMT: nl external ears & nose Neck: supple, non-tender Respiratory: clear to auscultation, diminished breath sounds Cardiovascular: regular rate and rhythm, nl pulses Gastrointestinal: soft, non-tender Extremities: normal pulses Neurological: STUDIO ASSISTANT II-XII intact, nl mental status Lymph: nl lymph nodes Results Result Diagram: 09/16/18 0400 09/16/18 0400 Results 24hrs Laboratory Tests Test 09/15/18 10:41 09/15/18 11:10 09/15/18 11:29 09/15/18 15:00 Lactic Acid 2.9 *H Level Troponin I 3.400 *H Blood Gas Blood arterial Specimen Source Arterial Blood 09/15/2018 11:53 Date Drawn :50 AM Arterial Blood 7.234 *L pH (Temp corrected) Arterial Blood 43.5 pCO2 (Temp correct) Arterial Blood 73.0 L pO2 (Temp corrected) Arterial Blood 18.0 L HCO3 Arterial Blood -9.1 L Base Excess Arterial Blood 92.1 L Oxygen Saturatio n Aroldo Test ACCEPTAB Arterial Blood Left Radial Gas Puncture Site Arterial 0 Blood Carboxyhem oglobin Arterial Blood 0 Methemoglobin Blood Gas A-a O2 234.6 H Differential Oxyhemoglobin 92.1 L Percent Blood Gas 37.0 Temperature Blood Gas MASK - VENTI Modality FiO2 50.0 Blood Gas Tania BARTHOLOMEW RN Critical Value Read Back Blood Gas Notified Whom Blood Gas 09/15/2018 12:04 Notified Time :30 PM Bedside Glucose 261 H Urine 0.0 Eosinophils % Urine Random 135.23 Creatinine Urine Random 56 Sodium Urine 0.85 Protein/Creatini ne Ratio Urine Total 116.0 H Protein Test 09/15/18 16:20 09/15/18 17:21 09/15/18 20:21 09/15/18 23:40 Activated 113.2 *H 47.3 H Partial Thrombop last Time Lactic Acid 1.6 Level Troponin I 6.710 *H Bedside Glucose 215 162 Test 09/16/18 02:07 09/16/18 04:00 09/16/18 07:00 09/16/18 08:35 Bedside Glucose 147 166 White Blood 12.7 #H Count Red Blood Count 2.90 L Hemoglobin 9.4 L Hematocrit 28.3 L Mean Corpuscular 97.6 Volume Mean Corpuscular 32.4 Hemoglobin Mean Corpuscular 33.2 Hemoglobin Myrna nt Red Cell 13.0 Distribution Width Platelet Count 158 Mean Platelet 10.1 Volume Immature 1.100 H Granulocytes % Neutrophils % 87.1 H Lymphocytes % 7.5 L Monocytes % 4.1 Eosinophils % 0.0 Basophils % 0.2 Nucleated Red 0.0 Blood Cells % Immature 0.140 H Granulocytes # Neutrophils # 11.1 H Lymphocytes # 1.0 Monocytes # 0.5 Eosinophils # 0.0 Basophils # 0.0 Nucleated Red 0.0 Blood Cells # Prothrombin Time 20.5 H Prothrombin Time 1.6 Ratio INR 1.75 International Normalized Ratio Activated 55.5 H Partial Thrombop last Time Sodium Level 142 Potassium Level 3.9 Chloride Level 103 Carbon Dioxide 26 # Level Anion Gap 13 Blood Urea 27 H Nitrogen Creatinine 1.41 H Est Glomerular Filtrat Rate mL/min Glucose Level 161 # Uric Acid 6.9 Calcium Level 7.9 L Magnesium Level 2.2 Creatine Kinase 142 Creatine Kinase 4.9 Index Creatinine 7.02 H Kinase MB (Mass) Troponin I 4.930 *H Blood Gas Blood arterial Specimen Source Arterial Blood 09/16/2018 7:21: Date Drawn 17 AM Arterial Blood 7.405 pH (Temp corrected) Arterial Blood 39.0 pCO2 (Temp correct) Arterial Blood 60.9 L pO2 (Temp corrected) Arterial Blood 23.9 HCO3 Arterial Blood -0.7 Base Excess Arterial Blood 90.5 L Oxygen Saturatio n Aroldo Test N/A Arterial Blood Right Brachial Gas Puncture Site Arterial 0.1 Blood Carboxyhem oglobin Arterial Blood 0 Methemoglobin Blood Gas A-a O2 172.2 H Differential Oxyhemoglobin 90.4 L Percent Blood Gas 37.0 Temperature Blood Gas NASAL CANNULA Modality FiO2 39.0 Blood Gas TM Notified Whom Blood Gas 09/16/2018 7:34: Notified Time 45 AM Medications Medication Current Medications IV Flush (NS 3 ml) 3 ml PER PROTOCOL IV ; Start 09/14/18 at 19:30 Ondansetron HCl (Zofran Inj) 4 mg Q6H PRN IV NAUSEA/VOMITING; Start 09/14/18 at 19:30 Acetaminophen (Tylenol Tab) 650 mg Q6H PRN PO .PAIN 1-3 OR TEMP; Start 09/14/18 at 19:30 Acetaminophen/ Hydrocodone Bitart ([place] (5/325)) 1 tab Q6H PRN PO .MOD PAIN 4- 6 Last administered on 09/14/18at 22:07; Admin Dose 1 TAB; Start 09/14/18 at 19:30 Morphine Sulfate (morphine) 2 mg Q4H PRN IV .SEVERE PAIN 7-10 Last administered on 09/16/18 05:50; Admin Dose 2 MG; Start 09/14/18 at 19:30 Docusate Sodium (Colace) 100 mg Q12H PRN PO .CONSTIPATION; Start 09/14/18 at 19:30 Zolpidem Tartrate (Ambien) 5 mg QHS PRN PO .INSOMNIA; Start 09/14/18 at 19:30 Aspirin (Aspirin) 81 mg DAILY PO Last administered on 09/16/18 08:50; Admin Dose 81 MG; Start 09/15/18 at 09:00 Diagnostic Test (Pha) (Accu-Chek) 1 ea 02 XX Last administered on 09/16/18 02:07; Admin Dose 1 EA; Start 09/15/18 at 02:00 Insulin Aspart (Novolog Insulin Pen) NOVOLOG *MILD* ALGORITHM WITH MEALS BEDTIME SC Last administered on 09/15/18 17:25; Admin Dose 2 UNIT; Start 09/14/18 at 21:00 Budesonide (Pulmicort (Neb)) 0.5 mg BID RESP THERAPY HHN Last administered on 09/15/18 20:56; Admin Dose 0.5 MG; Start 09/15/18 at 09:00 Albuterol/ Ipratropium (Duoneb) 3 ml Q2H RESP THERAPY PRN HHN shortness of breath; Start 09/15/18 at 00:00 Albuterol/ Ipratropium (Duoneb) 3 ml Q6H RESP THERAPY HHN Last administered on 09/16/18 09:04; Admin Dose 3 ML; Start 09/15/18 at 02:00 Nitroglycerin (Nitroglycerin (Sl Tab) 0.4 Mg) 1 tab Q5M PRN SL ANGINA; Start 09/15/18 at 00:00 Piperacillin Sod/ Tazobactam Sod 50 ml @ 100 mls/hr Q6 IVPB Last administered on 09/16/18 05:16; Admin Dose 100 MLS/HR; Start 09/15/18 at 00:16 Norepinephrine 16 mg/Dextrose 250 ml @ 0.94 mls/hr TITRATE IV Last administered on 09/15/18 06:26; Admin Dose 0.94 MLS/HR; Start 09/15/18 at 05:30 Insulin Glargine (Lantus) 12 units DAILY SC Last administered on 09/16/18at 08:37; Admin Dose 12 UNITS; Start 09/15/18 at 13:30 Sodium Bicarbonate 100 meq/Sodium Chloride 1,100 ml @ 80 mls/hr [id number] IV Last administered on 09/16/18 05:15; Admin Dose 80 MLS/HR; Start 09/15/18 at 16:00 Atorvastatin Calcium (Lipitor) 80 mg HS PO Last administered on 09/15/18at 20:21; Admin Dose 80 MG; Start 09/15/18 at 21:00 BEKA HARPER MD Sep 16, 2018 10:27
--- NOTE | 2018-09-16 10:35 | CONS ---
Consult Date/Type/Reason Admit Date/Time Sep 14, 2018 at 17:13 Initial Consult Date 09/15/18 Type of Consult Pulmonary Requesting Provider: HAYLEY ARREDONDO Date/Time of Note DATE: 09/16/18 TIME: 10:34 Subjective Patient stable overnight no new events off vasopressors for cardiac cath this morning. Objective Vital Signs Date Temp Pulse Resp B/P (MAP) Pulse Ox O2 O2 Flow FiO2 Time Delivery Rate 09/16/18 80 21 96 Nasal 6.0 09:04 Cannula 09/16/18 122/66 09:00 (84) 09/16/18 97.6 08:00 09/15/18 100 09:48 Intake and Output 09/15/18 09/15/18 09/16/18 1515:00 23:00 07:00 IntakeIntake Total 453.26 ml 1377.1 ml 740 ml OutputOutput Total 535 ml 360 ml 395 ml BalanceBalance -81.74 ml 1017.1 ml 345 ml Exam PHYSICAL EXAMINATION: GENERAL: Well-nourished, well-developed lady, comfortable at rest, in no acute distress. VITAL SIGNS: NECK: Supple. JVD is mildly elevated. CARDIAC: S1, S2. Irregular rate and rhythm. LUNGS: Diminished air entry bilaterally with few rhonchi. ABDOMEN: Soft, nontender. No guarding or rebound. EXTREMITIES: No cyanosis, clubbing. A 1+ edema. NEUROLOGIC: Generalized weakness. Vent Setting Fraction of Inspired Oxygen pe: 100 Results/Medications Result Diagram: 09/16/18 0400 09/16/18 0400 Results 24 hrs Laboratory Tests Test 09/15/18 10:41 09/15/18 11:10 09/15/18 11:29 09/15/18 15:00 Lactic Acid 2.9 *H Level Troponin I 3.400 *H Blood Gas Blood arterial Specimen Source Arterial Blood 09/15/2018 11:53 Date Drawn :50 AM Arterial Blood 7.234 *L pH (Temp corrected) Arterial Blood 43.5 pCO2 (Temp correct) Arterial Blood 73.0 L pO2 (Temp corrected) Arterial Blood 18.0 L HCO3 Arterial Blood -9.1 L Base Excess Arterial Blood 92.1 L Oxygen Saturatio n Aroldo Test ACCEPTAB Arterial Blood Left Radial Gas Puncture Site Arterial 0 Blood Carboxyhem oglobin Arterial Blood 0 Methemoglobin Blood Gas A-a O2 234.6 H Differential Oxyhemoglobin 92.1 L Percent Blood Gas 37.0 Temperature Blood Gas MASK - VENTI Modality FiO2 50.0 Blood Gas Tania BARTHOLOMEW RN Critical Value Read Back Blood Gas Notified Whom Blood Gas 09/15/2018 12:04 Notified Time :30 PM Bedside Glucose 261 H Urine 0.0 Eosinophils % Urine Random 135.23 Creatinine Urine Random 56 Sodium Urine 0.85 Protein/Creatini ne Ratio Urine Total 116.0 H Protein Test 09/15/18 16:20 09/15/18 17:21 09/15/18 20:21 09/15/18 23:40 Activated 113.2 *H 47.3 H Partial Thrombop last Time Lactic Acid 1.6 Level Troponin I 6.710 *H Bedside Glucose 215 162 Test 09/16/18 02:07 09/16/18 04:00 09/16/18 07:00 09/16/18 08:35 Bedside Glucose 147 166 White Blood 12.7 #H Count Red Blood Count 2.90 L Hemoglobin 9.4 L Hematocrit 28.3 L Mean Corpuscular 97.6 Volume Mean Corpuscular 32.4 Hemoglobin Mean Corpuscular 33.2 Hemoglobin Myrna nt Red Cell 13.0 Distribution Width Platelet Count 158 Mean Platelet 10.1 Volume Immature 1.100 H Granulocytes % Neutrophils % 87.1 H Lymphocytes % 7.5 L Monocytes % 4.1 Eosinophils % 0.0 Basophils % 0.2 Nucleated Red 0.0 Blood Cells % Immature 0.140 H Granulocytes # Neutrophils # 11.1 H Lymphocytes # 1.0 Monocytes # 0.5 Eosinophils # 0.0 Basophils # 0.0 Nucleated Red 0.0 Blood Cells # Prothrombin Time 20.5 H Prothrombin Time 1.6 Ratio INR 1.75 International Normalized Ratio Activated 55.5 H Partial Thrombop last Time Sodium Level 142 Potassium Level 3.9 Chloride Level 103 Carbon Dioxide 26 # Level Anion Gap 13 Blood Urea 27 H Nitrogen Creatinine 1.41 H Est Glomerular Filtrat Rate mL/min Glucose Level 161 # Uric Acid 6.9 Calcium Level 7.9 L Magnesium Level 2.2 Creatine Kinase 142 Creatine Kinase 4.9 Index Creatinine 7.02 H Kinase MB (Mass) Troponin I 4.930 *H Blood Gas Blood arterial Specimen Source Arterial Blood 09/16/2018 7:21: Date Drawn 17 AM Arterial Blood 7.405 pH (Temp corrected) Arterial Blood 39.0 pCO2 (Temp correct) Arterial Blood 60.9 L pO2 (Temp corrected) Arterial Blood 23.9 HCO3 Arterial Blood -0.7 Base Excess Arterial Blood 90.5 L Oxygen Saturatio n Aroldo Test N/A Arterial Blood Right Brachial Gas Puncture Site Arterial 0.1 Blood Carboxyhem oglobin Arterial Blood 0 Methemoglobin Blood Gas A-a O2 172.2 H Differential Oxyhemoglobin 90.4 L Percent Blood Gas 37.0 Temperature Blood Gas NASAL CANNULA Modality FiO2 39.0 Blood Gas TM Notified Whom Blood Gas 09/16/2018 7:34: Notified Time 45 AM Medications Current Medications IV Flush (NS 3 ml) 3 ml PER PROTOCOL IV ; Start 09/14/18 at 19:30 Ondansetron HCl (Zofran Inj) 4 mg Q6H PRN IV NAUSEA/VOMITING; Start 09/14/18 at 19:30 Acetaminophen (Tylenol Tab) 650 mg Q6H PRN PO .PAIN 1-3 OR TEMP; Start 09/14/18 at 19:30 Acetaminophen/ Hydrocodone Bitart ([place] (5/325)) 1 tab Q6H PRN PO .MOD PAIN 4- 6 Last administered on 09/14/18at 22:07; Admin Dose 1 TAB; Start 09/14/18 at 19:30 Morphine Sulfate (morphine) 2 mg Q4H PRN IV .SEVERE PAIN 7-10 Last administered on 09/16/18at 05:50; Admin Dose 2 MG; Start 09/14/18 at 19:30 Docusate Sodium (Colace) 100 mg Q12H PRN PO .CONSTIPATION; Start 09/14/18 at 19:30 Zolpidem Tartrate (Ambien) 5 mg QHS PRN PO .INSOMNIA; Start 09/14/18 at 19:30 Aspirin (Aspirin) 81 mg DAILY PO Last administered on 09/16/18 08:50; Admin Dose 81 MG; Start 09/15/18 at 09:00 Diagnostic Test (Pha) (Accu-Chek) 1 ea 02 XX Last administered on 09/16/18at 02:07; Admin Dose 1 EA; Start 09/15/18 at 02:00 Insulin Aspart (Novolog Insulin Pen) NOVOLOG *MILD* ALGORITHM WITH MEALS BEDTIME SC Last administered on 09/15/18at 17:25; Admin Dose 2 UNIT; Start 09/14/18 at 21:00 Budesonide (Pulmicort (Neb)) 0.5 mg BID RESP THERAPY HHN Last administered on 09/15/18at 20:56; Admin Dose 0.5 MG; Start 09/15/18 at 09:00 Albuterol/ Ipratropium (Duoneb) 3 ml Q2H RESP THERAPY PRN HHN shortness of breath; Start 09/15/18 at 00:00 Albuterol/ Ipratropium (Duoneb) 3 ml Q6H RESP THERAPY HHN Last administered on 09/16/18 09:04; Admin Dose 3 ML; Start 09/15/18 at 02:00 Nitroglycerin (Nitroglycerin (Sl Tab) 0.4 Mg) 1 tab Q5M PRN SL ANGINA; Start 09/15/18 at 00:00 Piperacillin Sod/ Tazobactam Sod 50 ml @ 100 mls/hr Q6 IVPB Last administered on 09/16/18 05:16; Admin Dose 100 MLS/HR; Start 09/15/18 at 00:16 Norepinephrine 16 mg/Dextrose 250 ml @ 0.94 mls/hr TITRATE IV Last administered on 09/15/18 06:26; Admin Dose 0.94 MLS/HR; Start 09/15/18 at 05:30 Insulin Glargine (Lantus) 12 units DAILY SC Last administered on 09/16/18 08:37; Admin Dose 12 UNITS; Start 09/15/18 at 13:30 Sodium Bicarbonate 100 meq/Sodium Chloride 1,100 ml @ 80 mls/hr [id number] IV Last administered on 09/16/18 05:15; Admin Dose 80 MLS/HR; Start 09/15/18 at 16:00 Atorvastatin Calcium (Lipitor) 80 mg HS PO Last administered on 09/15/18 20:21; Admin Dose 80 MG; Start 09/15/18 at 21:00 Assessment/Plan Hospital Course (Demo Recall) IMPRESSION AND PLAN: 1. Septic shock, likely secondary to urinary tract infection. Now off vasopressor support 2. Possible community-acquired pneumonia. 3. Pulmonary edema with acute hypoxemic respiratory failure. 4. Renal insufficiency, likely acute tubular necrosis injury. 5. Non-ST elevation IA PLAN: 1. Continue broad-spectrum antibiotics. 2. IV fluids and bicarbonate. 3. Cardiac catheterization this morning with possible intervention 4. Hold diuretics for cardiac catheterization and IV contrast. 5. DVT and GI prophylaxis. Critical care time 40 minutes. ALEN FLORES MD, [facility] Sep 16, 2018 10:35
[2018-09-16] MEDS ORDERED: FUROSEMIDE 40 MG INJ ONE (10:56)
[2018-09-16] MEDS ORDERED: SOD CHLORIDE 0.9% 1,000 ML IV SCH (11:24)
--- NOTE | 2018-09-16 11:24 | OPR ---
Date/Time of Note Date/Time of Note DATE: 09/16/18 TIME: 11:13 Operative Report Procedure Date: Sep 16, 2018 Preoperative Diagnosis nstemi. [facility] Postoperative Diagnosis same Operation/Procedure Performed [facility] narayan Surgeon see signature line Spanish Speaking Nanny N/A Anesthesia Type: moderate sedation Estimated Blood Loss: minimal Transfusion none Specimen none Grafts/Implants none Complications none Procedure Description Procedure performed: 1. Left heart catheterization, selective right and left coronary angiogram 2. right femoral angiogram and closure of the right femoral artery using a perclose device 3. moderate sedation for more than 30 minutes. Gasoline Engine Inspector: Luis A Jimenez MD Indication:: Non-ST elevation myocardial infarction. Congestive heart failure. Findin. Left main coronary artery: Is heavily calcified with 30% ostial calcified lesion (pressure damping was noted upon engagement with a 5 [place] sheath) also with distal 50% calcified stenosis. 2. Left anterior descending artery: Its a 100 size vessel and goes around the apex. It has 50 % stenosis proximally, and 70 % stenosis of the mid LAD. 3. Left circumflex artery: Is nondominant. It is 100% occluded very proximally 4. Right coronary artery: Is a dominant vessel. It is heavily calcified and 100% occluded ostially. There is large left to right collaterals noted 5. LV pressure: 170/28; Aortic pressure by pull back is 150/54% with only mild aortic stenosis Written informed consent with obtained after risks benefits and alternatives discussed with the patient in detail. risks including but not limited to risk of infection vascular complications, bleeding complications, AR stroke arrhythmia renal failure at even were discussed with the patient and multiple family members in detail. Patient was brought into the cardiac slabber and placed in supine position. Right and left groin area was prepped and draped in regular sterile fashion and then he was in anesthetized using 1% lidocaine. Right femoral artery was cannulated and using modified seldinger technique a 6 [place] sheath was placed in the right femoral artery. Right femoral angiogram was performed. JL4 catheter was advanced but could not engaged into the left main coronary artery . The JR4 catheter was advanced but could not be engaged right coronary artery . A JL4 catheter went to the left ventricle hemodynamics recorded. By pullback aortic pressure was measured I used a JL 3-1/2 5 [place] and finally with a JL 3 5 [place] catheter was advanced to engage the left main coronary artery angiography was obtained. The MW on the right was advanced to engage the right coronary artery angiography was obtained The Perclose was successfully deployed Patient tolerated procedure well with no complication. Patient is to be transferred to ICU in stable condition. contrast used: 50 cc Conclusions: Severe multivessel calcified disease. Recommendations: CT surgery consultation to see if the patient is possibly a candidate for bypass Aggressive medical therapy LUIS A JIMENEZ MD Sep 16, 2018 11:24
[2018-09-16] MEDS: HOLD all METFORMIN and METFORMIN CONTAINING medications for 48 hours post procedure. Chec XX SCH (11:30)
[2018-09-16] MEDS ORDERED: DEXTROSE 50% 50 ML SYRINGE IV PRN ×2 (12:00)
[2018-09-16] MEDS ORDERED: GLUCOSE GEL 15 GRAM TUBE PO PRN ×2 (12:00)
[2018-09-16] MEDS ORDERED: GLUCOSE GEL 15 GRAM TUBE BUCCAL PRN (12:00)
[2018-09-16] MEDS ORDERED: GLUCAGON 1 MG INJ IM PRN (12:00)
--- NOTE | 2018-09-16 18:10 | CONS ---
DATE OF ADMISSION: 09/14/2018 DATE OF CONSULTATION: REASON FOR CONSULTATION: Evaluation for possible coronary artery bypass grafting. Thank you, Dr. Jimenez, for asking me to see this patient. HISTORY OF PRESENT ILLNESS: This is an 82-year-old female admitted because of chest pain, was found to have non-ST elevation VA, underwent a cardiac catheterization that was found 3-vessel coronary art janet disease. Of note is that her BMI is 29.3 kg/m2. PAST MEDICAL HISTORY: Sepsis, atrial fibrillation, hypertension, diabetes, pulmonary edema. PAST SURGICAL HISTORY: None. ALLERGIES: NONE. SOCIAL HISTORY: No smoking, drinking or drug use. The patient is minimally ambulating at home. PHYSICAL EXAMINATION: VITAL SIGNS: Blood pressure is 112/74, pulse is 76, respirations 16, saturations 95% on 10 liters of oxygen. CARDIOVASCULAR: Normal S1, S2. LUNGS: Have diminished breath sounds at the bases. ABDOMEN: Soft. EXTREMITIES: Warm. LABORATORY VALUES: Hemoglobin is 9.4, white count 12.7, platelet count 158. PTT 55, INR 1.6. Creat inine 1.4. IMPRESSION: 1. Three-vessel coronary artery disease: 2. Obesity. 3. Renal failure. 4. Sepsis. RECOMMENDATIONS: I had a long talk with the patient's family. At this time, I do not think she is a candidate to undergo surgery because of her risk being too high. The family also does not want to p roceed with surgery. We will continue medical management. Dictated By: JUAN MOORE MD FM/NTS Conf#: [id number] DID#: [id number] CC: BEKA HARPER MD; HAYLEY ARREDONDO MD;*End*
[2018-09-16] MEDS: ATORVASTATIN 80 MG TAB PO SCH (21:01)
[2018-09-16] MEDS ORDERED: FUROSEMIDE 40 MG INJ IV ONE (21:30)
--- NOTE | 2018-09-16 21:32 | EN ---
Date/Time of Note Date/Time of Note DATE: 09/16/18 TIME: 21:28 Event Note Medicine Medicine Event Note I was called to bedside to evaluate patient for worsening hypoxia and tachypnea Patient with clear respiratory distress. Requiring NRB, saturating 89% now on max 02. She is tachypneic, mildly labored Neck veins elevated Lungs with shallow breathing, perhpas mild wheeze Tachycardic, regular Looks like she is in CHF. STANLEY noted. She has received copious fluids. Will give stat lasix 40 IV. Will require more doses most likely. Positive pressure ventilation to decongest lungs Copies To: CC: JUAN MOORE MD; BEKA HARPER MD; ALEN FLORES MD, [facility] ; PREETHI SCHWARZ MD Sep 16, 2018 21:31
[2018-09-17] VITALS (61 sets, daily range): BP systolic 64–144; BP diastolic 47–111; PULSE 66–153; RESP 14–30
[2018-09-17] MEDS: ALBUTEROL/IPRATROPIUM (NEB) 3 ML AMP HHN SCH ×4 (01:07→20:15)
[2018-09-17] MEDS: ACCU-CHEK XX SCH (01:44)
[2018-09-17] MEDS ORDERED: INSULIN ASPART [NOVOLOG] 3 ML PEN SC ONE (02:00)
[2018-09-17] MEDS ORDERED: METOPROLOL 5 MG INJ ONE (03:58)
[2018-09-17] MEDS ORDERED: METOPROLOL 5 MG INJ IV ONE (04:00)
[2018-09-17] MEDS: morphine 2 MG INJ IV PRN ×2 (04:32→13:38)
[2018-09-17] MEDS: METOPROLOL 5 MG INJ IV PRN ×2 (05:06→05:34)
[2018-09-17] MEDS: PIPER-TAZO 2.25 GM/NS 50 ML IVPB SCH ×3 (05:59→17:11)
[2018-09-17] MEDS ORDERED: DIGOXIN 500 MCG INJ IV ONE ×2 (07:00→11:00)
[2018-09-17] MEDS ORDERED: POTASSIUM CHLORIDE (SR) 20 MEQ TAB PO STA (07:01)
--- NOTE | 2018-09-17 07:08 | CONS ---
Consult Date/Type/Reason Admit Date/Time Sep 14, 2018 at 17:13 Initial Consult Date 09/15/18 Type of Consultation: cv Requesting Provider: HAYLEY ARREDONDO Date/Time of Note DATE: 09/17/18 TIME: 07:05 Subjective Interventional cardiology follow-up progress note Subjective: Case discussed with staff. Telemetry was reviewed. pt went into AFIB RVR This am No bleeding is reported no report of chest pain or pressure pt with worsening hypoexemia and on 100% NRB now Objective: General: Elderly female. Appears older than stated age HEENT: NC/AT. pupils are equal. round. NECK: NO JVD. no stridor. CV: Irregularly irregular . systolic murmur; no gallop or rubs. PULM: no wheezing + rhonchi. GI: SOFT, NT, ND, no rebound or guarding Extremity: trace B/L LE edema. no clubbing. neuro: awake and alert, OX3. Psych: calm and pleasant rectal: deferred X-ray done 09/14/2018 shows:Cardiomegaly, with increased mild failure. CXR 09/16: Cardiomegaly with mild pulmonary edema and small pleural effusions.Calcified atherosclerosis of the thoracic aorta. EKG was personally reviewed which shows: Atrial fibrillation/junctional rhythm with left bundle branch block Echocardiogram was personally reviewed shows: Moderate left ventricular systolic dysfunction. Ejection fraction is visually estimated at 30-35 %. Tissue Doppler/Mitral Doppler indices are consistent with restrictive physiology with markedly elevated left atrial pressure (Stage III-IV diastolic dysfunction). Multiple segmental wall motion abnormalities. There is moderate enlargement of left atrium. There is mild enlargement of right atrium. Moderate mitral leaflet calcification. Moderate mitral annular calcification. Moderate to severe mitral valve regurgitation. Aortic valve not well visualized. Moderate to severe aortic stenosis however due to low cardiac output severity of aortic stenosis is underestimated. Aortic valve area 0.90 cm2. Mild to moderate aortic valve regurgitation. Normal appearance of the tricuspid valve. There is moderate tricuspid regu rgitation. Dilated inferior vena cava with poor inspiratory collapse consistent with elevated right atrial pressures. Objective Vitals Vital Signs Date Temp Pulse Resp B/P (MAP) Pulse Ox O2 O2 Flow FiO2 Time Delivery Rate 09/17/18 119 05:27 09/17/18 21 95 Nasal 100 05:23 Cannula 09/17/18 110/88 05:01 (95) 09/17/18 98.7 03:39 09/16/18 15.0 22:52 Intake and Output 09/16/18 09/16/18 09/17/18 1515:00 23:00 07:00 IntakeIntake Total 535 ml 660 ml 100 ml OutputOutput Total 640 ml 1030 ml 1575 ml BalanceBalance -105 ml -370 ml -1475 ml Results/Medications Result Diagram: 09/17/18 0345 09/17/18 0345 Results 24 hrs Laboratory Tests Test 09/16/18 08:35 09/16/18 11:47 09/16/18 15:55 09/16/18 20:59 Bedside Glucose 166 165 155 207 Test 09/17/18 01:42 09/17/18 03:45 09/17/18 06:30 Bedside Glucose 233 H 123 White Blood Count 11.7 H Red Blood Count 2.89 L Hemoglobin 9.3 L Hematocrit 28.2 L Mean Corpuscular 97.6 Volume Mean Corpuscular 32.2 Hemoglobin Mean Corpuscular 33.0 Hemoglobin Concent Red Cell 13.4 Distribution Width Platelet Count 154 Mean Platelet Volume 10.3 Immature 0.800 H Granulocytes % Neutrophils % 85.1 H Lymphocytes % 8.6 L Monocytes % 5.4 Eosinophils % 0.0 Basophils % 0.1 Nucleated Red Blood 0.0 Cells % Immature 0.090 H Granulocytes # Neutrophils # 10.0 H Lymphocytes # 1.0 Monocytes # 0.6 Eosinophils # 0.0 Basophils # 0.0 Nucleated Red Blood 0.0 Cells # Sodium Level 142 Potassium Level 3.7 Chloride Level 98 Carbon Dioxide Level 32 H Anion Gap 12 Blood Urea Nitrogen 29 H Creatinine 1.36 H Est Glomerular Filtrat Rate mL/min Glucose Level 150 Calcium Level 8.7 Phosphorus Level 3.1 Magnesium Level 1.9 Home Meds Reported Medications Rosiglitazone Maleate* (Avandia*) 8 Mg Tablet 10/25/10 Cyclobenzaprine Hcl* (Cyclobenzaprine Hcl*) 10 Mg Tablet 10/25/10 Diclofenac Sodium* (Voltaren*) 25 Mg Tablet. 10/25/10 Carvedilol* (Carvedilol*) 25 Mg Tablet 10/25/10 Valsartan* (Diovan*) 80 Mg Tablet 10/25/10 Simvastatin* (Zocor*) 20 Mg Tablet 10/25/10 Folic Acid* (Folic Acid*) 1 Mg Tablet 10/25/10 Metformin Hcl* (Metformin Hcl*) 1,000 Mg Tablet 10/25/10 Nifedipine (Nifedipine XL) 30 Mg/Bottle Tab.osm.24 10/25/10 Aspirin (Aspirin) 81 Mg Tablet 10/25/10 Nifedipine* (Nifedipine ER*) 60 Mg Tablet.sa 10/25/10 Medications Current Medications IV Flush (NS 3 ml) 3 ml PER PROTOCOL IV ; Start 09/14/18 at 19:30 Ondansetron HCl (Zofran Inj) 4 mg Q6H PRN IV NAUSEA/VOMITING; Start 09/14/18 at 19:30 Acetaminophen (Tylenol Tab) 650 mg Q6H PRN PO .PAIN 1-3 OR TEMP; Start 09/14/18 at 19:30 Acetaminophen/ Hydrocodone Bitart ([place] (5/325)) 1 tab Q6H PRN PO .MOD PAIN 4- 6 Last administered on 09/14/18at 22:07; Admin Dose 1 TAB; Start 09/14/18 at 19:30 Morphine Sulfate (morphine) 2 mg Q4H PRN IV .SEVERE PAIN 7-10 Last administered on 09/17/18at 04:32; Admin Dose 2 MG; Start 09/14/18 at 19:30 Docusate Sodium (Colace) 100 mg Q12H PRN PO .CONSTIPATION; Start 09/14/18 at 19:30 Zolpidem Tartrate (Ambien) 5 mg QHS PRN PO .INSOMNIA; Start 09/14/18 at 19:30 Aspirin (Aspirin) 81 mg DAILY PO Last administered on 09/16/18at 08:50; Admin Dose 81 MG; Start 09/15/18 at 09:00 Diagnostic Test (Pha) (Accu-Chek) 1 ea 02 XX Last administered on 09/16/18at 02:07; Admin Dose 1 EA; Start 09/15/18 at 02:00 Insulin Aspart (Novolog Insulin Pen) NOVOLOG *MILD* ALGORITHM WITH MEALS BEDTIME SC Last administered on 09/16/18 21:02; Admin Dose 1 UNIT; Start 09/14/18 at 21:00 Budesonide (Pulmicort (Neb)) 0.5 mg BID RESP THERAPY HHN Last administered on 09/16/18 19:29; Admin Dose 0.5 MG; Start 09/15/18 at 09:00 Albuterol/ Ipratropium (Duoneb) 3 ml Q2H RESP THERAPY PRN HHN shortness of breath Last administered on 09/16/18 11:25; Admin Dose 3 ML; Start 09/15/18 at 00:00 Albuterol/ Ipratropium (Duoneb) 3 ml Q6H RESP THERAPY HHN Last administered on 09/17/18 01:07; Admin Dose 3 ML; Start 09/15/18 at 02:00 Nitroglycerin (Nitroglycerin (Sl Tab) 0.4 Mg) 1 tab Q5M PRN SL ANGINA; Start 09/15/18 at 00:00 Piperacillin Sod/ Tazobactam Sod 50 ml @ 100 mls/hr Q6 IVPB Last administered on 09/17/18 05:59; Admin Dose 100 MLS/HR; Start 09/15/18 at 00:16 Norepinephrine 16 mg/Dextrose 250 ml @ 0.94 mls/hr TITRATE IV Last administered on 09/15/18 06:26; Admin Dose 0.94 MLS/HR; Start 09/15/18 at 05:30 Insulin Glargine (Lantus) 12 units DAILY SC Last administered on 09/16/18 08:37; Admin Dose 12 UNITS; Start 09/15/18 at 13:30 Atorvastatin Calcium (Lipitor) 80 mg HS PO Last administered on 09/16/18 21:01; Admin Dose 80 MG; Start 09/15/18 at 21:00 Miscellaneous Information (* Miscellaneous Pharmacy Order) HOLD all METFORMIN ... ONCE XX ; Start 09/16/18 at 11:30; Stop 09/18/18 at 11:29 Miscellaneous Information 1 ea NOTE XX ; Start 09/16/18 at 12:00 Glucose (Glutose) 15 gm Q15M PRN PO DECREASED GLUCOSE; Start 09/16/18 at 12:00 Glucose (Glutose) 22.5 gm Q15M PRN PO DECREASED GLUCOSE; Start 09/16/18 at 12:00 Dextrose (D50w Syringe) 25 ml Q15M PRN IV DECREASED GLUCOSE; Start 09/16/18 at 12:00 Dextrose (D50w Syringe) 50 ml Q15M PRN IV DECREASED GLUCOSE; Start 09/16/18 at 12:00 Glucagon (Glucagen) 1 mg Q15M PRN IM DECREASED GLUCOSE; Start 09/16/18 at 12:00 Glucose (Glutose) 15 gm Q15M PRN BUCCAL DECREASED GLUCOSE; Start 09/16/18 at 12:00 Metoprolol Tartrate (Lopressor) 5 mg Q20M PRN IV FOR HR > 130 Last administered on 09/17/18at 05:34; Admin Dose 5 MG; Start 09/17/18 at 04:52; Stop 09/18/18 at 07:00 Digoxin (Digoxin) 250 mcg ONCE ONCE IV ; Start 09/17/18 at 11:00; Stop 09/17/18 at 11:01 Assessment/Plan Hospital Course (Demo Recall) 1. 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 Congestive heart failure appears acute secondary systolic heart failure 3. Sepsis and shock 4. Arrhythmias with proximal atrial fibrillation /junctional rhythm 5. Severe cardiomyopathy ischemic 6/ DM 7. HX HTN now hypotensive and shock 8. UTI 9. ? pneumonia 10. Acute renal failure 11. Anemia 12. Valvular heart disease Recommendations: Aggressive medical therapy with aspirin . Antibiotic management as internal medicine. Blood cultures are negative so far Continue close ICU care for now Respiratory care will be continued. O2 Diabetic control as per internal medicine. Insulin. high-dose statin as well CT surgery input is appreciated. will start lovenox for now amidarone drip for now. Thank you for his referral. We will continue to follow along with you LUIS A AGUILERA MD [facility] LUIS A AGUILERA MD Sep 17, 2018 07:08
[2018-09-17] MEDS ORDERED: AMIODARONE 900 MG in DEXTROSE 5% 482 ML IV SCH (07:30)
[2018-09-17] MEDS ORDERED: AMIODARONE 150MG/D5W BOLUS 100 ML IV ONE (07:30)
[2018-09-17] MEDS: ASPIRIN 81 MG TAB PO SCH (08:13)
[2018-09-17] MEDS: INSULIN ASPART [NOVOLOG] 3 ML PEN SC SCH ×4 (08:19→21:00)
[2018-09-17] MEDS: ENOXAPARIN 60 MG/0.6 ML SYG SC SCH ×2 (08:28→21:12)
[2018-09-17] MEDS: INSULIN GLARGINE [LANTus] (100 UNITS/ML) SYG SC SCH (08:28)
[2018-09-17] MEDS: BUDESONIDE (NEB) 0.5MG/2ML AMP HHN SCH ×2 (08:31→20:15)
--- NOTE | 2018-09-17 09:46 | CONS ---
Assessment/Plan Assessment/Plan Assessment/Plan (Daily) 1. acute Renal failure 2/2 Hemodynamics from CHF 2. acute CHF, possibly systolic with low EF 3. atrial fibrillation with RVR 5. septich shock possibly due to UTI 6. UTI with Urine cx growing Group B streptoccoci 7. Acute NSTEMI s/p LHC on 09/15/18 that showed multivessel obstructive CAD 8. h/o HTN 9. H/o DM II 10. H/o HL 11. metabolic acidosis due to Septic shock + renal failure 12. atrial fibrillation with RVR Plan: s/p Bicarbonate drip - now BUN/Cr 29/1.36- stable, , BP stable, Electrolytes stable today S/p LHC that showed multivessel obstructive CAD- s/p CT surgery evaluation, too high risk for surgery , family wants to wait, medical management for now pt went into atrial fibrilaltion with RVR today AM- started on amiodarone gtt IV abx zosyn for sepsis, renally dose all abx and monitor electrolytes Levophed for septic shock will follow up Consultation Date/Type/Reason Admit Date/Time Sep 14, 2018 at 17:13 Initial Consult Date 09/15/18 Type of Consult NEPHROLOGY Requesting Provider: HAYLEY ARREDONDO Date/Time of Note DATE: 09/17/18 TIME: 09:46 24 HR Interval Summary Free Text/Dictation s/p LHC yestreday, BUN/Cr 29/1.36, BP stable, pt went into atrial fibrillation with RVR today AM Exam/Review of Systems Exam Vitals Vital Signs Date Temp Pulse Resp B/P (MAP) Pulse Ox O2 O2 Flow FiO2 Time Delivery Rate 09/17/18 120 21 93 Nasal 100 08:41 Cannula 09/17/18 105/85 07:00 (92) 09/17/18 98.7 03:39 09/16/18 15.0 22:52 Intake and Output 09/16/18 09/16/18 09/17/18 1515:00 23:00 07:00 IntakeIntake Total 535 ml 660 ml 250 ml OutputOutput Total 640 ml 1030 ml 1645 ml BalanceBalance -105 ml -370 ml -1395 ml Exam Constitutional: alert Respiratory: clear to auscultation, diminished breath sounds Cardiovascular: regular rate and rhythm, nl pulses Gastrointestinal: soft, non-tender Extremities: normal pulses Neurological: [employer] II-XII intact, nl mental status Lymph: nl lymph nodes Results Result Diagram: 09/17/18 0345 09/17/18 0345 Results 24hrs Laboratory Tests Test 09/16/18 11:47 09/16/18 15:55 09/16/18 20:59 09/17/18 01:42 Bedside Glucose 165 155 207 233 H Test 09/17/18 03:45 09/17/18 06:30 09/17/18 08:16 White Blood Count 11.7 H Red Blood Count 2.89 L Hemoglobin 9.3 L Hematocrit 28.2 L Mean Corpuscular 97.6 Volume Mean Corpuscular 32.2 Hemoglobin Mean Corpuscular 33.0 Hemoglobin Concent Red Cell 13.4 Distribution Width Platelet Count 154 Mean Platelet Volume 10.3 Immature 0.800 H Granulocytes % Neutrophils % 85.1 H Lymphocytes % 8.6 L Monocytes % 5.4 Eosinophils % 0.0 Basophils % 0.1 Nucleated Red Blood 0.0 Cells % Immature 0.090 H Granulocytes # Neutrophils # 10.0 H Lymphocytes # 1.0 Monocytes # 0.6 Eosinophils # 0.0 Basophils # 0.0 Nucleated Red Blood 0.0 Cells # Sodium Level 142 Potassium Level 3.7 Chloride Level 98 Carbon Dioxide Level 32 H Anion Gap 12 Blood Urea Nitrogen 29 H Creatinine 1.36 H Est Glomerular Filtrat Rate mL/min Glucose Level 150 Calcium Level 8.7 Phosphorus Level 3.1 Magnesium Level 1.9 Bedside Glucose 123 144 Medications Medication Current Medications IV Flush (NS 3 ml) 3 ml PER PROTOCOL IV ; Start 09/14/18 at 19:30 Ondansetron HCl (Zofran Inj) 4 mg Q6H PRN IV NAUSEA/VOMITING; Start 09/14/18 at 19:30 Acetaminophen (Tylenol Tab) 650 mg Q6H PRN PO .PAIN 1-3 OR TEMP; Start 09/14/18 at 19:30 Acetaminophen/ Hydrocodone Bitart ([place] (5/325)) 1 tab Q6H PRN PO .MOD PAIN 4- 6 Last administered on 09/14/18at 22:07; Admin Dose 1 TAB; Start 09/14/18 at 19:30 Morphine Sulfate (morphine) 2 mg Q4H PRN IV .SEVERE PAIN 7-10 Last administered on 09/17/18 04:32; Admin Dose 2 MG; Start 09/14/18 at 19:30 Docusate Sodium (Colace) 100 mg Q12H PRN PO .CONSTIPATION; Start 09/14/18 at 19:30 Zolpidem Tartrate (Ambien) 5 mg QHS PRN PO .INSOMNIA; Start 09/14/18 at 19:30 Aspirin (Aspirin) 81 mg DAILY PO Last administered on 09/17/18 08:13; Admin Dose 81 MG; Start 09/15/18 at 09:00 Diagnostic Test (Pha) (Accu-Chek) 1 ea 02 XX Last administered on 09/16/18 02:07; Admin Dose 1 EA; Start 09/15/18 at 02:00 Insulin Aspart (Novolog Insulin Pen) NOVOLOG *MILD* ALGORITHM WITH MEALS BEDTIME SC Last administered on 09/17/18 08:19; Admin Dose 1 UNIT; Start 09/14/18 at 21:00 Budesonide (Pulmicort (Neb)) 0.5 mg BID RESP THERAPY HHN Last administered on 09/17/18 08:31; Admin Dose 0.5 MG; Start 09/15/18 at 09:00 Albuterol/ Ipratropium (Duoneb) 3 ml Q2H RESP THERAPY PRN HHN shortness of breath Last administered on 09/16/18 11:25; Admin Dose 3 ML; Start 09/15/18 at 00:00 Albuterol/ Ipratropium (Duoneb) 3 ml Q6H RESP THERAPY HHN Last administered on 09/17/18 08:31; Admin Dose 3 ML; Start 09/15/18 at 02:00 Nitroglycerin (Nitroglycerin (Sl Tab) 0.4 Mg) 1 tab Q5M PRN SL ANGINA; Start 09/15/18 at 00:00 Piperacillin Sod/ Tazobactam Sod 50 ml @ 100 mls/hr Q6 IVPB Last administered on 09/17/18 05:59; Admin Dose 100 MLS/HR; Start 09/15/18 at 00:16 Norepinephrine 16 mg/Dextrose 250 ml @ 0.94 mls/hr TITRATE IV Last administered on 09/15/18 06:26; Admin Dose 0.94 MLS/HR; Start 09/15/18 at 05:30 Insulin Glargine (Lantus) 12 units DAILY SC Last administered on 09/17/18at 08:28; Admin Dose 12 UNITS; Start 09/15/18 at 13:30 Atorvastatin Calcium (Lipitor) 80 mg HS PO Last administered on 09/16/18at 21:01; Admin Dose 80 MG; Start 09/15/18 at 21:00 Miscellaneous Information (* Miscellaneous Pharmacy Order) HOLD all METFORMIN ... ONCE XX ; Start 09/16/18 at 11:30; Stop 09/18/18 at 11:29 Miscellaneous Information 1 ea NOTE XX ; Start 09/16/18 at 12:00 Glucose (Glutose) 15 gm Q15M PRN PO DECREASED GLUCOSE; Start 09/16/18 at 12:00 Glucose (Glutose) 22.5 gm Q15M PRN PO DECREASED GLUCOSE; Start 09/16/18 at 12:00 Dextrose (D50w Syringe) 25 ml Q15M PRN IV DECREASED GLUCOSE; Start 09/16/18 at 12:00 Dextrose (D50w Syringe) 50 ml Q15M PRN IV DECREASED GLUCOSE; Start 09/16/18 at 12:00 Glucagon (Glucagen) 1 mg Q15M PRN IM DECREASED GLUCOSE; Start 09/16/18 at 12:00 Glucose (Glutose) 15 gm Q15M PRN BUCCAL DECREASED GLUCOSE; Start 09/16/18 at 12:00 Metoprolol Tartrate (Lopressor) 5 mg Q20M PRN IV FOR HR > 130 Last administered on 09/17/18at 05:34; Admin Dose 5 MG; Start 09/17/18 at 04:52; Stop 09/18/18 at 07:00 Amiodarone HCl 900 mg/Dextrose 500 ml @ 0 mls/hr Q0M IV Last administered on 09/17/18at 08:21; Admin Dose 33.4 MLS/HR; Start 09/17/18 at 07:30 Enoxaparin Sodium (Lovenox) 60 mg Q12 SC Last administered on 09/17/18at 08:28; Admin Dose 60 MG; Start 09/17/18 at 09:00 BEKA HARPER MD Sep 17, 2018 09:46
[2018-09-17] MEDS: HOLD all METFORMIN and METFORMIN CONTAINING medications for 48 hours post procedure. Chec XX SCH (11:30)
[2018-09-17] MEDS ORDERED: FUROSEMIDE 40 MG INJ IV ONE (14:30)
--- NOTE | 2018-09-17 14:30 | CONS ---
Consult Date/Type/Reason Admit Date/Time Sep 14, 2018 at 17:13 Initial Consult Date 09/15/18 Type of Consult Pulmonary Requesting Provider: HAYLEY ARREDONDO Date/Time of Note DATE: 09/17/18 TIME: 14:29 Subjective Patient has significant hypoxemia post cardiac cath. Chest x-ray shows severe pulmonary edema. Now on bilevel ventilation 100% FiO2. Objective Vital Signs Date Temp Pulse Resp B/P (MAP) Pulse Ox O2 O2 Flow FiO2 Time Delivery Rate 09/17/18 85 19 129/88 95 BIPAP 14:00 (102) 09/17/18 100 13:42 09/17/18 98.7 12:00 09/16/18 15.0 22:52 Intake and Output 09/16/18 09/16/18 09/17/18 1515:00 23:00 07:00 IntakeIntake Total 535 ml 660 ml 250 ml OutputOutput Total 640 ml 1030 ml 1645 ml BalanceBalance -105 ml -370 ml -1395 ml Exam PHYSICAL EXAMINATION: GENERAL: Well-nourished, well-developed lady, comfortable at rest, in no acute distress. VITAL SIGNS: NECK: Supple. JVD is mildly elevated. CARDIAC: S1, S2. Irregular rate and rhythm. Systolic ejection murmur. LUNGS: Diminished air entry bilaterally with few rhonchi. ABDOMEN: Soft, nontender. No guarding or rebound. EXTREMITIES: No cyanosis, clubbing. A 1+ edema. NEUROLOGIC: Generalized weakness. Vent Setting Fraction of Inspired Oxygen pe: 100 Results/Medications Result Diagram: 09/17/18 0345 09/17/18 0345 Results 24 hrs Chest x-ray demonstrates significant CHF possible infiltrate also. Laboratory Tests Test 09/16/18 15:55 09/16/18 20:59 09/17/18 01:42 09/17/18 03:45 Bedside Glucose 155 207 233 H White Blood Count 11.7 H Red Blood Count 2.89 L Hemoglobin 9.3 L Hematocrit 28.2 L Mean Corpuscular 97.6 Volume Mean Corpuscular 32.2 Hemoglobin Mean Corpuscular 33.0 Hemoglobin Concent Red Cell 13.4 Distribution Width Platelet Count 154 Mean Platelet Volume 10.3 Immature 0.800 H Granulocytes % Neutrophils % 85.1 H Lymphocytes % 8.6 L Monocytes % 5.4 Eosinophils % 0.0 Basophils % 0.1 Nucleated Red Blood 0.0 Cells % Immature 0.090 H Granulocytes # Neutrophils # 10.0 H Lymphocytes # 1.0 Monocytes # 0.6 Eosinophils # 0.0 Basophils # 0.0 Nucleated Red Blood 0.0 Cells # Sodium Level 142 Potassium Level 3.7 Chloride Level 98 Carbon Dioxide Level 32 H Anion Gap 12 Blood Urea Nitrogen 29 H Creatinine 1.36 H Est Glomerular Filtrat Rate mL/min Glucose Level 150 Calcium Level 8.7 Phosphorus Level 3.1 Magnesium Level 1.9 Test 09/17/18 06:30 09/17/18 08:16 09/17/18 12:05 Bedside Glucose 123 144 113 Medications Current Medications IV Flush (NS 3 ml) 3 ml PER PROTOCOL IV ; Start 09/14/18 at 19:30 Ondansetron HCl (Zofran Inj) 4 mg Q6H PRN IV NAUSEA/VOMITING; Start 09/14/18 at 19:30 Acetaminophen (Tylenol Tab) 650 mg Q6H PRN PO .PAIN 1-3 OR TEMP; Start 09/14/18 at 19:30 Acetaminophen/ Hydrocodone Bitart ([place] (5/325)) 1 tab Q6H PRN PO .MOD PAIN 4- 6 Last administered on 09/14/18at 22:07; Admin Dose 1 TAB; Start 09/14/18 at 19:30 Morphine Sulfate (morphine) 2 mg Q4H PRN IV .SEVERE PAIN 7-10 Last administered on 09/17/18at 13:38; Admin Dose 2 MG; Start 09/14/18 at 19:30 Docusate Sodium (Colace) 100 mg Q12H PRN PO .CONSTIPATION; Start 09/14/18 at 19:30 Zolpidem Tartrate (Ambien) 5 mg QHS PRN PO .INSOMNIA; Start 09/14/18 at 19:30 Aspirin (Aspirin) 81 mg DAILY PO Last administered on 09/17/18at 08:13; Admin Dose 81 MG; Start 09/15/18 at 09:00 Diagnostic Test (Pha) (Accu-Chek) 1 ea 02 XX Last administered on 09/16/18at 02:07; Admin Dose 1 EA; Start 09/15/18 at 02:00 Insulin Aspart (Novolog Insulin Pen) NOVOLOG *MILD* ALGORITHM WITH MEALS BE DTIME SC Last administered on 09/17/18 08:19; Admin Dose 1 UNIT; Start 09/14/18 at 21:00 Budesonide (Pulmicort (Neb)) 0.5 mg BID RESP THERAPY HHN Last administered on 09/17/18 08:31; Admin Dose 0.5 MG; Start 09/15/18 at 09:00 Albuterol/ Ipratropium (Duoneb) 3 ml Q2H RESP THERAPY PRN HHN shortness of breath Last administered on 09/16/18 11:25; Admin Dose 3 ML; Start 09/15/18 at 00:00 Albuterol/ Ipratropium (Duoneb) 3 ml Q6H RESP THERAPY HHN Last administered on 09/17/18 13:29; Admin Dose 3 ML; Start 09/15/18 at 02:00 Nitroglycerin (Nitroglycerin (Sl Tab) 0.4 Mg) 1 tab Q5M PRN SL ANGINA; Start 09/15/18 at 00:00 Piperacillin Sod/ Tazobactam Sod 50 ml @ 100 mls/hr Q6 IVPB Last administered on 09/17/18 12:06; Admin Dose 100 MLS/HR; Start 09/15/18 at 00:16 Norepinephrine 16 mg/Dextrose 250 ml @ 0.94 mls/hr TITRATE IV Last administered on 09/15/18 06:26; Admin Dose 0.94 MLS/HR; Start 09/15/18 at 05:30 Insulin Glargine (Lantus) 12 units DAILY SC Last administered on 09/17/18 08:28; Admin Dose 12 UNITS; Start 09/15/18 at 13:30 Atorvastatin Calcium (Lipitor) 80 mg HS PO Last administered on 09/16/18 21:01; Admin Dose 80 MG; Start 09/15/18 at 21:00 Miscellaneous Information (* Miscellaneous Pharmacy Order) HOLD all METFORMIN ... ONCE XX ; Start 09/16/18 at 11:30; Stop 09/18/18 at 11:29 Miscellaneous Information 1 ea NOTE XX ; Start 09/16/18 at 12:00 Glucose (Glutose) 15 gm Q15M PRN PO DECREASED GLUCOSE; Start 09/16/18 at 12:00 Glucose (Glutose) 22.5 gm Q15M PRN PO DECREASED GLUCOSE; Start 09/16/18 at 12:00 Dextrose (D50w Syringe) 25 ml Q15M PRN IV DECREASED GLUCOSE; Start 09/16/18 at 12:00 Dextrose (D50w Syringe) 50 ml Q15M PRN IV DECREASED GLUCOSE; Start 09/16/18 at 12:00 Glucagon (Glucagen) 1 mg Q15M PRN IM DECREASED GLUCOSE; Start 09/16/18 at 12:00 Glucose (Glutose) 15 gm Q15M PRN BUCCAL DECREASED GLUCOSE; Start 09/16/18 at 12:00 Metoprolol Tartrate (Lopressor) 5 mg Q20M PRN IV FOR HR > 130 Last administered on 09/17/18at 05:34; Admin Dose 5 MG; Start 09/17/18 at 04:52; Stop 09/18/18 at 07:00 Enoxaparin Sodium (Lovenox) 60 mg Q12 SC Last administered on 09/17/18at 08:28; Admin Dose 60 MG; Start 09/17/18 at 09:00 Furosemide (Lasix) 40 mg ONCE ONCE IV Last administered on 09/17/18at 14:20; Admin Dose 40 MG; Start 09/17/18 at 14:30; Stop 09/17/18 at 14:31 Assessment/Plan Hospital Course (Demo Recall) IMPRESSION AND PLAN: 1. Status post septic shock, likely secondary to urinary tract infection. 2. Possible community-acquired pneumonia. 3. Pulmonary edema with acute hypoxemic respiratory failure. Progressive hypoxemia secondary to pulmonary edema 4. Renal insufficiency, likely acute tubular necrosis injury. 5. Non-ST elevation ID, ischemic cardia myopathy with severe aortic stenosis status post cardiac cath PLAN: 1. Continue broad-spectrum antibiotics. 2. Decrease IV fluids IV diuresis 3. Cardiac catheterization this morning with possible intervention 4. Continue bilevel ventilation 5. DVT and GI prophylaxis. Critical care time 40 minutes. Prognosis guarded ALEN FLORES MD, [facility] Sep 17, 2018 14:30
--- NOTE | 2018-09-17 15:48 | PN ---
Date/Time of Note Date/Time of Note DATE: 09/17/18 TIME: 15:39 Assessment/Plan VTE Prophylaxis Risk score (from Nsg)>0 risk: 11 SCD applied (from Nsg): Yes Pharmacological prophylaxis: heparin Lines/Catheters IV Catheter Type (from Nrsg): Central Line Central line still needed: Yes Urinary Cath still in place: Yes Reason Cath still needed: terminal illness/intractable pain Assessment/Plan Assessment/Plan 1. A. fib with RVR- resolved - patient back in sinus rhythm - on amio drip this am when initially went into afib. - Cardiology on board and appreciate recommendations 2. Sepsis secondary to UTI and/or pneumonia- stable - off pressor support - Continue IV antibiotics and final cultures noted 3. Non-STEMI - s/p LHC on 09/16 that showed triple vessel disease - CT surgery input appreciated and not recommending surgical intervention due to high risk - will continue aggressive medical management per Cardiology recommendations 4. Diabetes - A1c noted - ISS and accuchecks 5. HTN - BP running on the lower side. continue monitoring and adjust as needed 6. Normocytic anemia likely secondary chronic disease - Monitor - no need for transfusion at this time 7. Disposition - Continue close monitoring in ICU given worsening of respiratory status >35 minutes of critical care time spent with patient and family at bedside Result Diagram: 09/17/18 0345 09/17/18 0345 Results 24hrs Laboratory Tests Test 09/16/18 15:55 09/16/18 20:59 09/17/18 01:42 09/17/18 03:45 Bedside Glucose 155 207 233 H White Blood Count 11.7 H Red Blood Count 2.89 L Hemoglobin 9.3 L Hematocrit 28.2 L Mean Corpuscular 97.6 Volume Mean Corpuscular 32.2 Hemoglobin Mean Corpuscular 33.0 Hemoglobin Concent Red Cell 13.4 Distribution Width Platelet Count 154 Mean Platelet Volume 10.3 Immature 0.800 H Granulocytes % Neutrophils % 85.1 H Lymphocytes % 8.6 L Monocytes % 5.4 Eosinophils % 0.0 Basophils % 0.1 Nucleated Red Blood 0.0 Cells % Immature 0.090 H Granulocytes # Neutrophils # 10.0 H Lymphocytes # 1.0 Monocytes # 0.6 Eosinophils # 0.0 Basophils # 0.0 Nucleated Red Blood 0.0 Cells # Sodium Level 142 Potassium Level 3.7 Chloride Level 98 Carbon Dioxide Level 32 H Anion Gap 12 Blood Urea Nitrogen 29 H Creatinine 1.36 H Est Glomerular Filtrat Rate mL/min Glucose Level 150 Calcium Level 8.7 Phosphorus Level 3.1 Magnesium Level 1.9 Test 09/17/18 06:30 09/17/18 08:16 09/17/18 12:05 Bedside Glucose 123 144 113 Subjective 24 Hr Interval Summary Free Text/Dictation Patient on high flow this am and was complaining of respiratory disturess. Developed increased work of breathing and transitioned to BIPAP. Code status discussed with family and they would like to talk with the whole family before deciding. Exam/Review of Systems Exam Vitals Vital Signs Date Temp Pulse Resp B/P (MAP) Pulse Ox O2 O2 Flow FiO2 Time Delivery Rate 09/17/18 88 94 100 15:10 09/17/18 19 129/88 BIPAP 14:00 (102) 09/17/18 98.7 12:00 09/16/18 15.0 22:52 Intake and Output 09/16/18 09/16/18 09/17/18 1515:00 23:00 07:00 IntakeIntake Total 535 ml 660 ml 250 ml OutputOutput Total 640 ml 1030 ml 1645 ml BalanceBalance -105 ml -370 ml -1395 ml Exam General: Patient is a pleasant female, on BIPAP HEENT: Atraumatic, normocephalic. The pupils are equal, round and reactive. Extraocular motor are intact Neck: Supple Chest: Nontender Lungs: Crackles at bases, no wheezing appreciated Heart: Normal S1-S2, Regular rate and rhythm, systolic murmur Abdomen: Soft , nontender, nondistended , bowel sounds are present. No guarding no rebound tenderness Results Results 24hrs Laboratory Tests Test 09/16/18 15:55 09/16/18 20:59 09/17/18 01:42 09/17/18 03:45 Bedside Glucose 155 207 233 H White Blood Count 11.7 H Red Blood Count 2.89 L Hemoglobin 9.3 L Hematocrit 28.2 L Mean Corpuscular 97.6 Volume Mean Corpuscular 32.2 Hemoglobin Mean Corpuscular 33.0 Hemoglobin Concent Red Cell 13.4 Distribution Width Platelet Count 154 Mean Platelet Volume 10.3 Immature 0.800 H Granulocytes % Neutrophils % 85.1 H Lymphocytes % 8.6 L Monocytes % 5.4 Eosinophils % 0.0 Basophils % 0.1 Nucleated Red Blood 0.0 Cells % Immature 0.090 H Granulocytes # Neutrophils # 10.0 H Lymphocytes # 1.0 Monocytes # 0.6 Eosinophils # 0.0 Basophils # 0.0 Nucleated Red Blood 0.0 Cells # Sodium Level 142 Potassium Level 3.7 Chloride Level 98 Carbon Dioxide Level 32 H Anion Gap 12 Blood Urea Nitrogen 29 H Creatinine 1.36 H Est Glomerular Filtrat Rate mL/min Glucose Level 150 Calcium Level 8.7 Phosphorus Level 3.1 Magnesium Level 1.9 Test 09/17/18 06:30 09/17/18 08:16 09/17/18 12:05 Bedside Glucose 123 144 113 Medications Medication Current Medications IV Flush (NS 3 ml) 3 ml PER PROTOCOL IV ; Start 09/14/18 at 19:30 Ondansetron HCl (Zofran Inj) 4 mg Q6H PRN IV NAUSEA/VOMITING; Start 09/14/18 at 19:30 Acetaminophen (Tylenol Tab) 650 mg Q6H PRN PO .PAIN 1-3 OR TEMP; Start 09/14/18 at 19:30 Acetaminophen/ Hydrocodone Bitart ([place] (5/325)) 1 tab Q6H PRN PO .MOD PAIN 4- 6 Last administered on 09/14/18at 22:07; Admin Dose 1 TAB; Start 09/14/18 at 19:30 Morphine Sulfate (morphine) 2 mg Q4H PRN IV .SEVERE PAIN 7-10 Last administered on 09/17/18at 13:38; Admin Dose 2 MG; Start 09/14/18 at 19:30 Docusate Sodium (Colace) 100 mg Q12H PRN PO .CONSTIPATION; Start 09/14/18 at 19:30 Zolpidem Tartrate (Ambien) 5 mg QHS PRN PO .INSOMNIA; Start 09/14/18 at 19:30 Aspirin (Aspirin) 81 mg DAILY PO Last administered on 09/17/18at 08:13; Admin Dose 81 MG; Start 09/15/18 at 09:00 Diagnostic Test (Pha) (Accu-Chek) 1 ea 02 XX Last administered on 09/16/18at 02:07; Admin Dose 1 EA; Start 09/15/18 at 02:00 Insulin Aspart (Novolog Insulin Pen) NOVOLOG *MILD* ALGORITHM WITH MEALS BEDTI ME SC Last administered on 09/17/18 08:19; Admin Dose 1 UNIT; Start 09/14/18 at 21:00 Budesonide (Pulmicort (Neb)) 0.5 mg BID RESP THERAPY HHN Last administered on 09/17/18 08:31; Admin Dose 0.5 MG; Start 09/15/18 at 09:00 Albuterol/ Ipratropium (Duoneb) 3 ml Q2H RESP THERAPY PRN HHN shortness of breath Last administered on 09/16/18 11:25; Admin Dose 3 ML; Start 09/15/18 at 00:00 Albuterol/ Ipratropium (Duoneb) 3 ml Q6H RESP THERAPY HHN Last administered on 09/17/18 13:29; Admin Dose 3 ML; Start 09/15/18 at 02:00 Nitroglycerin (Nitroglycerin (Sl Tab) 0.4 Mg) 1 tab Q5M PRN SL ANGINA; Start 09/15/18 at 00:00 Piperacillin Sod/ Tazobactam Sod 50 ml @ 100 mls/hr Q6 IVPB Last administered on 09/17/18 12:06; Admin Dose 100 MLS/HR; Start 09/15/18 at 00:16 Norepinephrine 16 mg/Dextrose 250 ml @ 0.94 mls/hr TITRATE IV Last administered on 09/15/18 06:26; Admin Dose 0.94 MLS/HR; Start 09/15/18 at 05:30 Insulin Glargine (Lantus) 12 units DAILY SC Last administered on 09/17/18 08 :28; Admin Dose 12 UNITS; Start 09/15/18 at 13:30 Atorvastatin Calcium (Lipitor) 80 mg HS PO Last administered on 09/16/18 21:01; Admin Dose 80 MG; Start 09/15/18 at 21:00 Miscellaneous Information (* Miscellaneous Pharmacy Order) HOLD all METFORMIN ... ONCE XX ; Start 09/16/18 at 11:30; Stop 09/18/18 at 11:29 Miscellaneous Information 1 ea NOTE XX ; Start 09/16/18 at 12:00 Glucose (Glutose) 15 gm Q15M PRN PO DECREASED GLUCOSE; Start 09/16/18 at 12:00 Glucose (Glutose) 22.5 gm Q15M PRN PO DECREASED GLUCOSE; Start 09/16/18 at 12:00 Dextrose (D50w Syringe) 25 ml Q15M PRN IV DECREASED GLUCOSE; Start 09/16/18 at 12:00 Dextrose (D50w Syringe) 50 ml Q15M PRN IV DECREASED GLUCOSE; Start 09/16/18 at 12:00 Glucagon (Glucagen) 1 mg Q15M PRN IM DECREASED GLUCOSE; Start 09/16/18 at 12:00 Glucose (Glutose) 15 gm Q15M PRN BUCCAL DECREASED GLUCOSE; Start 09/16/18 at 12:00 Metoprolol Tartrate (Lopressor) 5 mg Q20M PRN IV FOR HR > 130 Last administered on 09/17/18at 05:34; Admin Dose 5 MG; Start 09/17/18 at 04:52; Stop 09/18/18 at 07:00 Enoxaparin Sodium (Lovenox) 60 mg Q12 SC Last administered on 09/17/18at 08:28; Admin Dose 60 MG; Start 09/17/18 at 09:00 PASTOR ROMERO MD Sep 17, 2018 15:47
--- NOTE | 2018-09-17 20:42 | PN ---
Date/Time of Note Date/Time of Note DATE: 09/17/18 TIME: 20:41 Assessment/Plan Lines/Catheters IV Catheter Type (from Nrsg): Central Line Rebollar in Place (from Nrsg): Yes Assessment/Plan Assessment/Plan 1. Three-vessel coronary artery disease: 2. Obesity. 3. Renal failure. 4. Sepsis. RECOMMENDATIONS: I had a long talk with the patient's family. At this time, I do not think she is a candidate to undergo surgery because of her risk being too high. The family also does not want to proceed with surgery. We will continue medical management. Subjective 24 Hr Interval Summary Constitutional: improved Pain Control: mild Exam/Review of Systems Vital Signs Vitals Vital Signs Date Temp Pulse Resp B/P (MAP) Pulse Ox O2 O2 Flow FiO2 Time Delivery Rate 09/17/18 90 16 123/74 96 20:30 (90) 09/17/18 98.7 BIPAP 20:00 09/17/18 90 17:45 09/16/18 15.0 22:52 Intake and Output 09/16/18 09/16/18 09/17/18 1515:00 23:00 07:00 IntakeIntake Total 535 ml 660 ml 250 ml OutputOutput Total 640 ml 1030 ml 1645 ml BalanceBalance -105 ml -370 ml -1395 ml Exam Eyes: nl conjunctiva, EOMI, nl lids, nl sclera ENMT: nl external ears & nose, nl lips & teeth, nl nasal mucosa & septum, mucosa pink and moist Neck: supple, non-tender Respiratory: clear to auscultation, normal air movement Cardiovascular: regular rate and rhythm, nl pulses Gastrointestinal: soft, nl liver, spleen, non-tender Musculoskeletal: nl extremities to inspection, nl gait and stance Results Result Diagram: 09/17/1834409/17/18 0345 JUAN MOORE MD Sep 17, 2018 20:42
[2018-09-17] MEDS: ATORVASTATIN 80 MG TAB PO SCH (21:00)
[2018-09-18] VITALS (53 sets, daily range): BP systolic 79–157; BP diastolic 52–102; PULSE 79–157; RESP 16–30
[2018-09-18] MEDS: PIPER-TAZO 2.25 GM/NS 50 ML IVPB SCH ×5 (00:14→23:31)
[2018-09-18] MEDS: ALBUTEROL/IPRATROPIUM (NEB) 3 ML AMP HHN SCH ×4 (01:27→20:05)
[2018-09-18] MEDS: ACCU-CHEK XX SCH (02:00)
[2018-09-18] MEDS ORDERED: POTASSIUM CHLORIDE 100 ML IVPB ONE (07:00)
--- NOTE | 2018-09-18 07:17 | CONS ---
Consult Date/Type/Reason Admit Date/Time Sep 14, 2018 at 17:13 Initial Consult Date 09/15/18 Type of Consultation: cv Requesting Provider: HAYLEY ARREDONDO Date/Time of Note DATE: 09/18/18 TIME: 07:14 Subjective Interventional cardiology follow-up progress note Subjective: Case discussed with staff. Telemetry was reviewed. pt has converted back to sinus rhythm yesterday morning is remained sinus. Has had short episode of A. fib but overall remains in sinus. No bleeding is reported no report of chest pain or pressure pt with worsening hypoexemia and is on BiPAP now Objective: General: Elderly female. Appears older than stated age with respiratory distress on BiPAP now HEENT: NC/AT. pupils are equal. round. NECK: NO JVD. no stridor. CV: Irregularly irregular . systolic murmur; no gallop or rubs. PULM: no wheezing + rhonchi. GI: SOFT, NT, ND, no rebound or guarding Extremity: trace B/L LE edema. no clubbing. neuro: Sleeping lethargic Psych: calm and pleasant rectal: deferred X-ray done 09/14/2018 shows:Cardiomegaly, with increased mild failure. CXR 09/16: Cardiomegaly with mild pulmonary edema and small pleural effusions.Calcified atherosclerosis of the thoracic aorta. Chest x-ray done 09/17/2018 shows: Stable cardiomegaly and vascular congestion with persistent left pleural effusion. Superimposed infection cannot be excluded. . EKG was personally reviewed which shows: Atrial fibrillation/junctional rhythm with left bundle branch block Echocardiogram was personally reviewed shows: Moderate left ventricular systolic dysfunction. Ejection fraction is visually estimated at 30-35 %. Tissue Doppler/Mitral Doppler indices are consistent with restrictive physiology with markedly elevated left atrial pressure (Stage III-IV diastolic dysfunction). Multiple segmental wall motion abnormalities. There is moderate enlargement of left atrium. There is mild enlargement of right atrium. Moderate mitral leaflet calcification. Moderate mitral annular calcification. Moderate to severe mitral valve regurgitation. Aortic valve not well visualized. Moderate to severe aortic stenosis however due to low cardiac output severity of aortic stenosis is underestimated. Aortic valve area 0.90 cm2. Mild to moderate aortic valve regurgitation. Normal appearance of the tricuspid valve. There is moderate tricuspid reg urgitation. Dilated inferior vena cava with poor inspiratory collapse consistent with elevated right atrial pressures. Objective Vitals Vital Signs Date Temp Pulse Resp B/P (MAP) Pulse Ox O2 O2 Flow FiO2 Time Delivery Rate 09/18/18 95 20 120/85 94 BIPAP 07:00 (97) 09/18/18 60 05:30 09/18/18 97.8 04:00 09/16/18 15.0 22:52 Intake and Output 09/17/18 09/17/18 09/18/18 1515:00 23:00 07:00 IntakeIntake Total 320.4 ml 50 ml 100 ml OutputOutput Total 400 ml 2065 ml 1075 ml BalanceBalance -79.6 ml -2015 ml -975 ml Results/Medications Result Diagram: 09/18/18 0455 09/18/18 0455 Results 24 hrs Laboratory Tests Test 09/17/18 08:16 09/17/18 12:05 09/17/18 17:13 09/17/18 21:10 Bedside Glucose 144 113 122 104 Test 09/18/18 04:55 09/18/18 05:22 White Blood Count 8.5 # Red Blood Count 3.09 L Hemoglobin 9.9 L Hematocrit 30.6 L Mean Corpuscular 99.0 Volume Mean Corpuscular 32.0 Hemoglobin Mean Corpuscular 32.4 Hemoglobin Concent Red Cell 13.3 Distribution Width Platelet Count 143 Mean Platelet Volume 10.2 Immature 0.600 H Granulocytes % Neutrophils % 82.7 H Lymphocytes % 10.0 L Monocytes % 6.4 Eosinophils % 0.2 Basophils % 0.1 Nucleated Red Blood 0.2 H Cells % Immature 0.050 H Granulocytes # Neutrophils # 7.1 Lymphocytes # 0.9 Monocytes # 0.6 Eosinophils # 0.0 Basophils # 0.0 Nucleated Red Blood 0.0 Cells # Prothrombin Time 19.2 H Prothrombin Time 1.5 Ratio INR International 1.61 Normalized Ratio Sodium Level 142 Potassium Level 3.3 L Chloride Level 100 Carbon Dioxide Level 32 H Anion Gap 10 Blood Urea Nitrogen 28 H Creatinine 1.08 H Est Glomerular Filtrat Rate mL/min Glucose Level 77 # Calcium Level 8.6 Magnesium Level 1.6 L Total Bilirubin 0.4 Direct Bilirubin 0.00 Indirect Bilirubin 0.4 Aspartate Amino 949 H Transf (AST/SGOT) Alanine 2059 H Aminotransferase (AL T/SGPT) Alkaline Phosphatase 150 H Creatine Kinase 108 Creatine Kinase 3.2 Index Creatinine Kinase MB 3.50 H (Mass) Troponin I 5.450 *H B-Type Natriuretic 15817 H Peptide Total Protein 6.7 Albumin 3.2 L Globulin 3.50 H Albumin/Globulin 0.91 Ratio Bedside Glucose 75 Home Meds Reported Medications Rosiglitazone Maleate* (Avandia*) 8 Mg Tablet 10/25/10 Cyclobenzaprine Hcl* (Cyclobenzaprine Hcl*) 10 Mg Tablet 10/25/10 Diclofenac Sodium* (Voltaren*) 25 Mg Tablet. 10/25/10 Carvedilol* (Carvedilol*) 25 Mg Tablet 10/25/10 Valsartan* (Diovan*) 80 Mg Tablet 10/25/10 Simvastatin* (Zocor*) 20 Mg Tablet 10/25/10 Folic Acid* (Folic Acid*) 1 Mg Tablet 10/25/10 Metformin Hcl* (Metformin Hcl*) 1,000 Mg Tablet 10/25/10 Nifedipine (Nifedipine XL) 30 Mg/Bottle Tab.osm.24 10/25/10 Aspirin (Aspirin) 81 Mg Tablet 10/25/10 Nifedipine* (Nifedipine ER*) 60 Mg Tablet.sa 10/25/10 Medications Current Medications IV Flush (NS 3 ml) 3 ml PER PROTOCOL IV ; Start 09/14/18 at 19:30 Ondansetron HCl (Zofran Inj) 4 mg Q6H PRN IV NAUSEA/VOMITING; Start 09/14/18 at 19:30 Acetaminophen (Tylenol Tab) 650 mg Q6H PRN PO .PAIN 1-3 OR TEMP; Start 09/14/18 at 19:30 Acetaminophen/ Hydrocodone Bitart ([place] (5/325)) 1 tab Q6H PRN PO .MOD PAIN 4- 6 Last administered on 09/14/18at 22:07; Admin Dose 1 TAB; Start 09/14/18 at 19:30 Morphine Sulfate (morphine) 2 mg Q4H PRN IV .SEVERE PAIN 7-10 Last administered on 09/17/18at 13:38; Admin Dose 2 MG; Start 09/14/18 at 19:30 Docusate Sodium (Colace) 100 mg Q12H PRN PO .CONSTIPATION; Start 09/14/18 at 19:30 Zolpidem Tartrate (Ambien) 5 mg QHS PRN PO .INSOMNIA; Start 09/14/18 at 19:30 Aspirin (Aspirin) 81 mg DAILY PO Last administered on 09/17/18 08:13; Admin Do se 81 MG; Start 09/15/18 at 09:00 Diagnostic Test (Pha) (Accu-Chek) 1 ea 02 XX Last administered on 09/16/18 02:07; Admin Dose 1 EA; Start 09/15/18 at 02:00 Insulin Aspart (Novolog Insulin Pen) NOVOLOG *MILD* ALGORITHM WITH MEALS BEDTIME SC Last administered on 09/17/18 08:19; Admin Dose 1 UNIT; Start 09/14/18 at 21:00 Budesonide (Pulmicort (Neb)) 0.5 mg BID RESP THERAPY HHN Last administered on 09/17/18 20:15; Admin Dose 0.5 MG; Start 09/15/18 at 09:00 Albuterol/ Ipratropium (Duoneb) 3 ml Q2H RESP THERAPY PRN HHN shortness of breath Last administered on 09/16/18 11:25; Admin Dose 3 ML; Start 09/15/18 at 00:00 Albuterol/ Ipratropium (Duoneb) 3 ml Q6H RESP THERAPY HHN Last administered on 09/18/18 01:27; Admin Dose 3 ML; Start 09/15/18 at 02:00 Nitroglycerin (Nitroglycerin (Sl Tab) 0.4 Mg) 1 tab Q5M PRN SL ANGINA; Start 09/15/18 at 00:00 Piperacillin Sod/ Tazobactam Sod 50 ml @ 100 mls/hr Q6 IVPB Last administered on 09/18/18 05:19; Admin Dose 100 MLS/HR; Start 09/15/18 at 00:16 Norepinephrine 16 mg/Dextrose 250 ml @ 0.94 mls/hr TITRATE IV Last administered on 09/15/18 06:26; Admin Dose 0.94 MLS/HR; Start 09/15/18 at 05:30 Insulin Glargine (Lantus) 12 units DAILY SC Last administered on 09/17/18 08:28; Admin Dose 12 UNITS; Start 09/15/18 at 13:30 Atorvastatin Calcium (Lipitor) 80 mg HS PO Last administered on 09/16/18at 21:01; Admin Dose 80 MG; Start 09/15/18 at 21:00 Miscellaneous Information (* Miscellaneous Pharmacy Order) HOLD all METFORMIN ... ONCE XX ; Start 09/16/18 at 11:30; Stop 09/18/18 at 11:29 Miscellaneous Information 1 ea NOTE XX ; Start 09/16/18 at 12:00 Glucose (Glutose) 15 gm Q15M PRN PO DECREASED GLUCOSE; Start 09/16/18 at 12:00 Glucose (Glutose) 22.5 gm Q15M PRN PO DECREASED GLUCOSE; Start 09/16/18 at 12:00 Dextrose (D50w Syringe) 25 ml Q15M PRN IV DECREASED GLUCOSE; Start 09/16/18 at 12:00 Dextrose (D50w Syringe) 50 ml Q15M PRN IV DECREASED GLUCOSE; Start 09/16/18 at 12:00 Glucagon (Glucagen) 1 mg Q15M PRN IM DECREASED GLUCOSE; Start 09/16/18 at 12:00 Glucose (Glutose) 15 gm Q15M PRN BUCCAL DECREASED GLUCOSE; Start 09/16/18 at 12:00 Enoxaparin Sodium (Lovenox) 60 mg Q12 SC Last administered on 09/17/18at 21:12; Admin Dose 60 MG; Start 09/17/18 at 09:00 Magnesium Sulfate 50 ml @ 25 mls/hr ONCE ONCE IVPB ; Start 09/18/18 at 09:00; Stop 09/18/18 at 10:59 Potassium Chloride 100 ml @ 50 mls/hr ONCE ONCE IVPB ; Start 09/18/18 at 07:00; Stop 09/18/18 at 08:59 Assessment/Plan Hospital Course (Demo Recall) 1. 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 Congestive heart failure appears acute secondary systolic heart failure 3. Sepsis and shock 4. Arrhythmias with proximal atrial fibrillation /junctional rhythm 5. Severe cardiomyopathy ischemic 6/ DM 7. HX HTN now hypotensive and shock 8. UTI 9. ? pneumonia 10. Acute renal failure 11. Anemia 12. Valvular heart disease 13. Transaminitis/liver failure: Probably related to hepatic congestion Recommendations: Aggressive medical therapy with aspirin and Lovenox. Antibiotic management as internal medicine. Blood cultures are negative so far Continue close ICU care for now Respiratory care will be continued. O2 and BiPAP as needed Diabetic control as per internal medicine. Insulin. I will decrease the statin dose given her elevated LFTs CT surgery input is appreciated. We will try to aggressively diurese her as much as possible replace electrolyte as needed Thank you for his referral. We will continue to follow along with you LUIS A AGUILERA MD [facility] LUIS A AGUILERA MD Sep 18, 2018 07:17
[2018-09-18] MEDS ORDERED: MAGNESIUM SULFATE 2 GM/50 ML 50 ML IVPB ONE ×2 (08:00→10:00)
[2018-09-18] MEDS: ASPIRIN 81 MG TAB PO SCH (08:11)
--- NOTE | 2018-09-18 08:53 | PN ---
Date/Time of Note Date/Time of Note DATE: 09/18/18 TIME: 08:53 Assessment/Plan VTE Prophylaxis Risk score (from Nsg)>0 risk: 8 SCD applied (from Nsg): Yes Pharmacological prophylaxis: LMWH Lines/Catheters IV Catheter Type (from Nrsg): Central Line Central line still needed: Yes Urinary Cath still in place: Yes Reason Cath still needed: other (indicate) (respiratory distress) Assessment/Plan Assessment/Plan 1. Acute hypoxic respiratory failure - On BIPAP PRN and high flow to maintain saturations - Pulm on board and appreciate recommendations - Cardiology on board and continuing aggressive diuresis 2. A. fib with RVR- resolved - patient back in sinus rhythm 3. Sepsis secondary to UTI and/or pneumonia- stable - Continue IV antibiotics and final cultures noted 4. NSTEMI - s/p LHC on 09/16 that showed triple vessel disease - CT surgery input appreciated and not recommending surgical intervention due to high risk - will continue aggressive medical management per Cardiology recommendations 5. Diabetes - A1c noted - ISS and accuchecks 6. HTN - BP running on the lower side. continue monitoring and adjust as needed 7. Normocytic anemia likely secondary chronic disease - Monitor - no need for transfusion at this time 8. Disposition - Continue close monitoring in ICU given fragility of respiratory status. Result Diagram: 09/18/18 0455 09/18/18 0455 Results 24hrs Laboratory Tests Test 09/17/18 12:05 09/17/18 17:13 09/17/18 21:10 09/18/18 04:55 Bedside Glucose 113 122 104 White Blood Count 8.5 # Red Blood Count 3.09 L Hemoglobin 9.9 L Hematocrit 30.6 L Mean Corpuscular 99.0 Volume Mean Corpuscular 32.0 Hemoglobin Mean Corpuscular 32.4 Hemoglobin Concent Red Cell 13.3 Distribution Width Platelet Count 143 Mean Platelet Volume 10.2 Immature 0.600 H Granulocytes % Neutrophils % 82.7 H Lymphocytes % 10.0 L Monocytes % 6.4 Eosinophils % 0.2 Basophils % 0.1 Nucleated Red Blood 0.2 H Cells % Immature 0.050 H Granulocytes # Neutrophils # 7.1 Lymphocytes # 0.9 Monocytes # 0.6 Eosinophils # 0.0 Basophils # 0.0 Nucleated Red Blood 0.0 Cells # Prothrombin Time 19.2 H Prothrombin Time 1.5 Ratio INR International 1.61 Normalized Ratio Sodium Level 142 Potassium Level 3.3 L Chloride Level 100 Carbon Dioxide Level 32 H Anion Gap 10 Blood Urea Nitrogen 28 H Creatinine 1.08 H Est Glomerular Filtrat Rate mL/min Glucose Level 77 # Calcium Level 8.6 Magnesium Level 1.6 L Total Bilirubin 0.4 Direct Bilirubin 0.00 Indirect Bilirubin 0.4 Aspartate Amino 949 H Transf (AST/SGOT) Alanine 2059 H Aminotransferase (AL T/SGPT) Alkaline Phosphatase 150 H Creatine Kinase 108 Creatine Kinase 3.2 Index Creatinine Kinase MB 3.50 H (Mass) Troponin I 5.450 *H B-Type Natriuretic 11655 H Peptide Total Protein 6.7 Albumin 3.2 L Globulin 3.50 H Albumin/Globulin 0.91 Ratio Test 09/18/18 05:22 Bedside Glucose 75 Subjective 24 Hr Interval Summary Free Text/Dictation Patient remains on BIPAP this am and fatigued. Family at bedside and seems to be leaning towards DNR status but granddaughter would like to discuss with whole family. Exam/Review of Systems Exam Vitals Vital Signs Date Temp Pulse Resp B/P (MAP) Pulse Ox O2 O2 Flow FiO2 Time Delivery Rate 09/18/18 96 08:00 09/18/18 20 120/85 94 BIPAP 07:00 (97) 09/18/18 60 05:30 09/18/18 97.8 04:00 09/16/18 15.0 22:52 Intake and Output 09/17/18 09/17/18 09/18/18 1515:00 23:00 07:00 IntakeIntake Total 320.4 ml 50 ml 100 ml OutputOutput Total 400 ml 2065 ml 1075 ml BalanceBalance -79.6 ml -2015 ml -975 ml Exam General: Patient is a pleasant female, on BIPAP, fatigued. no acute distresstact Neck: Supple Chest: Nontender Lungs: Crackles at bases, no wheezing appreciated Heart: Normal S1-S2, Regular rate and rhythm, systolic murmur Abdomen: Soft , nontender, nondistended , bowel sounds are present. No guarding no rebound tenderness Skin: no acute rashes appreciated Results Results 24hrs Laboratory Tests Test 09/17/18 12:05 09/17/18 17:13 09/17/18 21:10 09/18/18 04:55 Bedside Glucose 113 122 104 White Blood Count 8.5 # Red Blood Count 3.09 L Hemoglobin 9.9 L Hematocrit 30.6 L Mean Corpuscular 99.0 Volume Mean Corpuscular 32.0 Hemoglobin Mean Corpuscular 32.4 Hemoglobin Concent Red Cell 13.3 Distribution Width Platelet Count 143 Mean Platelet Volume 10.2 Immature 0.600 H Granulocytes % Neutrophils % 82.7 H Lymphocytes % 10.0 L Monocytes % 6.4 Eosinophils % 0.2 Basophils % 0.1 Nucleated Red Blood 0.2 H Cells % Immature 0.050 H Granulocytes # Neutrophils # 7.1 Lymphocytes # 0.9 Monocytes # 0.6 Eosinophils # 0.0 Basophils # 0.0 Nucleated Red Blood 0.0 Cells # Prothrombin Time 19.2 H Prothrombin Time 1.5 Ratio INR International 1.61 Normalized Ratio Sodium Level 142 Potassium Level 3.3 L Chloride Level 100 Carbon Dioxide Level 32 H Anion Gap 10 Blood Urea Nitrogen 28 H Creatinine 1.08 H Est Glomerular Filtrat Rate mL/min Glucose Level 77 # Calcium Level 8.6 Magnesium Level 1.6 L Total Bilirubin 0.4 Direct Bilirubin 0.00 Indirect Bilirubin 0.4 Aspartate Amino 949 H Transf (AST/SGOT) Alanine 2059 H Aminotransferase (AL T/SGPT) Alkaline Phosphatase 150 H Creatine Kinase 108 Creatine Kinase 3.2 Index Creatinine Kinase MB 3.50 H (Mass) Troponin I 5.450 *H B-Type Natriuretic 59873 H Peptide Total Protein 6.7 Albumin 3.2 L Globulin 3.50 H Albumin/Globulin 0.91 Ratio Test 09/18/18 05:22 Bedside Glucose 75 Medications Medication Current Medications IV Flush (NS 3 ml) 3 ml PER PROTOCOL IV ; Start 09/14/18 at 19:30 Ondansetron HCl (Zofran Inj) 4 mg Q6H PRN IV NAUSEA/VOMITING; Start 09/14/18 at 19:30 Acetaminophen (Tylenol Tab) 650 mg Q6H PRN PO .PAIN 1-3 OR TEMP; Start 09/14/18 at 19:30 Acetaminophen/ Hydrocodone Bitart ([place] (5/325)) 1 tab Q6H PRN PO .MOD PAIN 4- 6 Last administered on 09/14/18at 22:07; Admin Dose 1 TAB; Start 09/14/18 at 19:30 Morphine Sulfate (morphine) 2 mg Q4H PRN IV .SEVERE PAIN 7-10 Last administered on 09/17/18 13:38; Admin Dose 2 MG; Start 09/14/18 at 19:30 Docusate Sodium (Colace) 100 mg Q12H PRN PO .CONSTIPATION; Start 09/14/18 at 19:30 Zolpidem Tartrate (Ambien) 5 mg QHS PRN PO .INSOMNIA; Start 09/14/18 at 19:30 Aspirin (Aspirin) 81 mg DAILY PO Last administered on 09/17/18 08:13; Admin Dose 81 MG; Start 09/15/18 at 09:00 Budesonide (Pulmicort (Neb)) 0.5 mg BID RESP THERAPY HHN Last administered on 09/17/18 20:15; Admin Dose 0.5 MG; Start 09/15/18 at 09:00 Albuterol/ Ipratropium (Duoneb) 3 ml Q2H RESP THERAPY PRN HHN shortness of breath Last administered on 09/16/18 11:25; Admin Dose 3 ML; Start 09/15/18 at 00:00 Albuterol/ Ipratropium (Duoneb) 3 ml Q6H RESP THERAPY HHN Last administered on 09/18/18 01:27; Admin Dose 3 ML; Start 09/15/18 at 02:00 Nitroglycerin (Nitroglycerin (Sl Tab) 0.4 Mg) 1 tab Q5M PRN SL ANGINA; Start 09/15/18 at 00:00 Piperacillin Sod/ Tazobactam Sod 50 ml @ 100 mls/hr Q6 IVPB Last administered on 09/18/18 05:19; Admin Dose 100 MLS/HR; Start 09/15/18 at 00:16 Norepinephrine 16 mg/Dextrose 250 ml @ 0.94 mls/hr TITRATE IV Last administered on 09/15/18 06:26; Admin Dose 0.94 MLS/HR; Start 09/15/18 at 05:30 Insulin Glargine (Lantus) 12 units DAILY SC Last administered on 09/17/18 08:2 8; Admin Dose 12 UNITS; Start 09/15/18 at 13:30 Atorvastatin Calcium (Lipitor) 80 mg HS PO Last administered on 09/16/18at 21:01; Admin Dose 80 MG; Start 09/15/18 at 21:00 Miscellaneous Information (* Miscellaneous Pharmacy Order) HOLD all METFORMIN ... ONCE XX ; Start 09/16/18 at 11:30; Stop 09/18/18 at 11:29 Miscellaneous Information 1 ea NOTE XX ; Start 09/16/18 at 12:00 Glucose (Glutose) 15 gm Q15M PRN PO DECREASED GLUCOSE; Start 09/16/18 at 12:00 Glucose (Glutose) 22.5 gm Q15M PRN PO DECREASED GLUCOSE; Start 09/16/18 at 12:00 Dextrose (D50w Syringe) 25 ml Q15M PRN IV DECREASED GLUCOSE; Start 09/16/18 at 12:00 Dextrose (D50w Syringe) 50 ml Q15M PRN IV DECREASED GLUCOSE; Start 09/16/18 at 12:00 Glucagon (Glucagen) 1 mg Q15M PRN IM DECREASED GLUCOSE; Start 09/16/18 at 12:00 Glucose (Glutose) 15 gm Q15M PRN BUCCAL DECREASED GLUCOSE; Start 09/16/18 at 12:00 Enoxaparin Sodium (Lovenox) 60 mg Q12 SC Last administered on 09/17/18at 21:12; Admin Dose 60 MG; Start 09/17/18 at 09:00 Magnesium Sulfate 50 ml @ 25 mls/hr ONCE ONCE IVPB ; Start 09/18/18 at 08:00; Stop 09/18/18 at 09:59 Potassium Chloride 100 ml @ 50 mls/hr ONCE ONCE IVPB ; Start 09/18/18 at 07:00; Stop 09/18/18 at 08:59 Potassium Chloride 50 ml @ 25 mls/hr Q2H IVPB ; Start 09/18/18 at 10:00; Stop 09/18/18 at 17:59 Magnesium Sulfate 50 ml @ 25 mls/hr ONCE ONCE IVPB ; Start 09/18/18 at 10:00; Stop 09/18/18 at 11:59 Furosemide (Lasix) 40 mg BID DIURETICS IV ; Start 09/18/18 at 07:30 Insulin Aspart (Novolog Insulin Pen) NOVOLOG *MILD* ALGORI... Q6 SC ; Start 09/18/18 at 12:00 PASTOR ROMERO MD Sep 18, 2018 08:53
[2018-09-18] MEDS: INSULIN GLARGINE [LANTus] (100 UNITS/ML) SYG SC SCH (09:00)
[2018-09-18] MEDS: BUDESONIDE (NEB) 0.5MG/2ML AMP HHN SCH ×2 (09:00→20:05)
[2018-09-18] MEDS: FUROSEMIDE 40 MG INJ IV SCH ×2 (09:25→18:31)
[2018-09-18] MEDS: ENOXAPARIN 60 MG/0.6 ML SYG SC SCH ×2 (09:30→20:38)
[2018-09-18] MEDS ORDERED: DILTIAZEM 25 MG INJ IV ONE ×2 (10:30→17:30)
[2018-09-18] MEDS ORDERED: AMIODARONE 150MG/D5W BOLUS 100 ML IV ONE (10:30)
[2018-09-18] MEDS: AMIODARONE 900 MG in DEXTROSE 5% 482 ML IV SCH (10:47)
--- NOTE | 2018-09-18 10:57 | CONS ---
Assessment/Plan Assessment/Plan Assessment/Plan (Daily) 1. acute Renal failure 2/2 Hemodynamics from CHF 2. acute CHF, possibly systolic with low EF 3. atrial fibrillation with RVR 5. septich shock possibly due to UTI 6. UTI with Urine cx growing Group B streptoccoci 7. Acute NSTEMI s/p LHC on 09/15/18 that showed multivessel obstructive CAD 8. h/o HTN 9. H/o DM II 10. H/o HL 11. metabolic acidosis due to Septic shock + renal failure 12. atrial fibrillation with RVR Plan: pt continues on bilevel ventilatiion, Code status changed to DNR, BUN/Cr 28/1.08, K 3.3, K replacement ordered S/p LHC that showed multivessel obstructive CAD- s/p CT surgery evaluation, too high risk for surgery , family wants to wait, medical management for now on amiodarone gtt for rate control for atrial fibrillation IV abx zosyn for sepsis, renally dose all abx and monitor electrolytes Levophed for septic shock will follow up Consultation Date/Type/Reason Admit Date/Time Sep 14, 2018 at 17:13 Initial Consult Date 09/15/18 Type of Consult NEPHROLOGY Requesting Provider: HAYLEY ARREDONDO Date/Time of Note DATE: 09/18/18 TIME: 10:57 24 HR Interval Summary Free Text/Dictation pt continues on bilevel ventilatiion, Code status changed to DNR, Exam/Review of Systems Exam Vitals Vital Signs Date Temp Pulse Resp B/P (MAP) Pulse Ox O2 O2 Flow FiO2 Time Delivery Rate 09/18/18 157 10:10 09/18/18 26 96 60 09:03 09/18/18 120/85 BIPAP 07:00 (97) 09/18/18 97.8 04:00 09/16/18 15.0 22:52 Intake and Output 09/17/18 09/17/18 09/18/18 1515:00 23:00 07:00 IntakeIntake Total 320.4 ml 50 ml 100 ml OutputOutput Total 400 ml 2065 ml 1075 ml BalanceBalance -79.6 ml -2015 ml -975 ml Exam Constitutional: arousable but sleepy Respiratory: Bibasilar crackles, no wheezing Cardiovascular: regular rate and rhythm, nl pulses Gastrointestinal: soft, non-tender Extremities: normal pulses Neurological: Non focal Lymph: nl lymph nodes Results Result Diagram: 09/18/18 0455 09/18/18 0455 Results 24hrs Laboratory Tests Test 09/17/18 12:05 09/17/18 17:13 09/17/18 21:10 09/18/18 04:55 Bedside Glucose 113 122 104 White Blood Count 8.5 # Red Blood Count 3.09 L Hemoglobin 9.9 L Hematocrit 30.6 L Mean Corpuscular 99.0 Volume Mean Corpuscular 32.0 Hemoglobin Mean Corpuscular 32.4 Hemoglobin Concen t Red Cell 13.3 Distribution Width Platelet Count 143 Mean Platelet 10.2 Volume Immature 0.600 H Granulocytes % Neutrophils % 82.7 H Lymphocytes % 10.0 L Monocytes % 6.4 Eosinophils % 0.2 Basophils % 0.1 Nucleated Red 0.2 H Blood Cells % Immature 0.050 H Granulocytes # Neutrophils # 7.1 Lymphocytes # 0.9 Monocytes # 0.6 Eosinophils # 0.0 Basophils # 0.0 Nucleated Red 0.0 Blood Cells # Prothrombin Time 19.2 H Prothrombin Time 1.5 Ratio INR International 1.61 Normalized Ratio Sodium Level 142 Potassium Level 3.3 L Chloride Level 100 Carbon Dioxide 32 H Level Anion Gap 10 Blood Urea 28 H Nitrogen Creatinine 1.08 H Est Glomerular Filtrat Rate mL/min Glucose Level 77 # Calcium Level 8.6 Magnesium Level 1.6 L Total Bilirubin 0.4 Direct Bilirubin 0.00 Indirect 0.4 Bilirubin Aspartate Amino 949 H Transf (AST/SGOT) Alanine 2059 H Aminotransferase (ALT/SGPT) Alkaline 150 H Phosphatase Creatine Kinase 108 Creatine Kinase 3.2 Index Creatinine Kinase 3.50 H MB (Mass) Troponin I 5.450 *H B-Type 62811 H Natriuretic Peptide Total Protein 6.7 Albumin 3.2 L Globulin 3.50 H Albumin/Globulin 0.91 Ratio Test 09/18/18 05:22 09/18/18 07:00 09/18/18 09:28 Bedside Glucose 75 78 Blood Gas Blood arterial Specimen Source Arterial Blood 09/18/2018 9:12:1 Date Drawn 5 AM Arterial Blood pH 7.448 (Temp corrected) Arterial Blood 38.5 pCO2 (Temp correct) Arterial Blood 71.1 L pO2 (Temp corrected) Arterial Blood 26.0 HCO3 Arterial Blood 2.0 Base Excess Arterial Blood 92.4 L Oxygen Saturation Aroldo Test ACCEPTAB Arterial Blood Right Radial Gas Puncture Site Arterial 0.3 Blood Carboxyhemo globin Arterial Blood 0 Methemoglobin Blood Gas A-a O2 314.4 H Differential Oxyhemoglobin 92.1 L Percent Blood Gas 37.0 Temperature Blood Gas 12.0 Respiration Rate Blood Gas MASK - BIPAP Modality FiO2 60.0 Blood Gas 10/5 IPAP/EPAP Ratio Blood Gas JINA Nuñez Notified Whom Blood Gas 09/18/2018 9:21:1 Notified Time 2 AM Medications Medication Current Medications IV Flush (NS 3 ml) 3 ml PER PROTOCOL IV ; Start 09/14/18 at 19:30 Ondansetron HCl (Zofran Inj) 4 mg Q6H PRN IV NAUSEA/VOMITING; Start 09/14/18 at 19:30 Acetaminophen (Tylenol Tab) 650 mg Q6H PRN PO .PAIN 1-3 OR TEMP; Start 09/14/18 at 19:30 Acetaminophen/ Hydrocodone Bitart ([place] (5/325)) 1 tab Q6H PRN PO .MOD PAIN 4- 6 Last administered on 09/14/18at 22:07; Admin Dose 1 TAB; Start 09/14/18 at 19:30 Morphine Sulfate (morphine) 2 mg Q4H PRN IV .SEVERE PAIN 7-10 Last administered on 09/17/18at 13:38; Admin Dose 2 MG; Start 09/14/18 at 19:30 Docusate Sodium (Colace) 100 mg Q12H PRN PO .CONSTIPATION; Start 09/14/18 at 19:30 Zolpidem Tartrate (Ambien) 5 mg QHS PRN PO .INSOMNIA; Start 09/14/18 at 19:30 Aspirin (Aspirin) 81 mg DAILY PO Last administered on 09/17/18 08:13; Admin Dose 81 MG; Start 09/15/18 at 09:00 Budesonide (Pulmicort (Neb)) 0.5 mg BID RESP THERAPY HHN Last administered on 09/18/18 09:00; Admin Dose 0.5 MG; Start 09/15/18 at 09:00 Albuterol/ Ipratropium (Duoneb) 3 ml Q2H RESP THERAPY PRN HHN shortness of breath Last administered on 09/16/18 11:25; Admin Dose 3 ML; Start 09/15/18 at 00:00 Albuterol/ Ipratropium (Duoneb) 3 ml Q6H RESP THERAPY HHN Last administered on 09/18/18at 09:00; Admin Dose 3 ML; Start 09/15/18 at 02:00 Nitroglycerin (Nitroglycerin (Sl Tab) 0.4 Mg) 1 tab Q5M PRN SL ANGINA; Start 09/15/18 at 00:00 Piperacillin Sod/ Tazobactam Sod 50 ml @ 100 mls/hr Q6 IVPB Last administered on 09/18/18at 05:19; Admin Dose 100 MLS/HR; Start 09/15/18 at 00:16 Norepinephrine 16 mg/Dextrose 250 ml @ 0.94 mls/hr TITRATE IV Last administered on 09/15/18at 06:26; Admin Dose 0.94 MLS/HR; Start 09/15/18 at 05:30 Insulin Glargine (Lantus) 12 units DAILY SC Last administered on 09/17/18at 08:28; Admin Dose 12 UNITS; Start 09/15/18 at 13:30 Atorvastatin Calcium (Lipitor) 80 mg HS PO Last administered on 09/16/18at 21:01; Admin Dose 80 MG; Start 09/15/18 at 21:00 Miscellaneous Information (* Miscellaneous Pharmacy Order) HOLD all METFORMIN ... ONCE XX ; Start 09/16/18 at 11:30; Stop 09/18/18 at 11:29 Miscellaneous Information 1 ea NOTE XX ; Start 09/16/18 at 12:00 Glucose (Glutose) 15 gm Q15M PRN PO DECREASED GLUCOSE; Start 09/16/18 at 12:00 Glucose (Glutose) 22.5 gm Q15M PRN PO DECREASED GLUCOSE; Start 09/16/18 at 12:00 Dextrose (D50w Syringe) 25 ml Q15M PRN IV DECREASED GLUCOSE; Start 09/16/18 at 12:00 Dextrose (D50w Syringe) 50 ml Q15M PRN IV DECREASED GLUCOSE; Start 09/16/18 at 12:00 Glucagon (Glucagen) 1 mg Q15M PRN IM DECREASED GLUCOSE; Start 09/16/18 at 12:00 Glucose (Glutose) 15 gm Q15M PRN BUCCAL DECREASED GLUCOSE; Start 09/16/18 at 12:00 Enoxaparin Sodium (Lovenox) 60 mg Q12 SC Last administered on 09/18/18at 09:30; Admin Dose 60 MG; Start 09/17/18 at 09:00 Potassium Chloride 50 ml @ 25 mls/hr Q2H IVPB ; Start 09/18/18 at 10:00; Stop 09/18/18 at 17:59 Magnesium Sulfate 50 ml @ 25 mls/hr ONCE ONCE IVPB ; Start 09/18/18 at 10:00; Stop 09/18/18 at 11:59 Furosemide (Lasix) 40 mg BID DIURETICS IV Last administered on 09/18/18at 09:2 5; Admin Dose 40 MG; Start 09/18/18 at 07:30 Insulin Aspart (Novolog Insulin Pen) NOVOLOG *MILD* ALGORI... Q6 SC ; Start 09/18/18 at 12:00 Amiodarone HCl 900 mg/Dextrose 500 ml @ 0 mls/hr Q0M IV Last administered on 09/18/18at 10:47; Admin Dose 16.7 MLS/HR; Start 09/18/18 at 11:00 BEKA HARPER MD Sep 18, 2018 10:57
[2018-09-18] MEDS: INSULIN ASPART [NOVOLOG] 3 ML PEN SC SCH ×3 (12:00→23:30)
[2018-09-18] MEDS: POTASSIUM CHLORIDE 50 ML IVPB SCH ×4 (12:30→19:46)
--- NOTE | 2018-09-18 12:36 | CONS ---
Consult Date/Type/Reason Admit Date/Time Sep 14, 2018 at 17:13 Initial Consult Date 09/15/18 Type of Consult Pulmonary Requesting Provider: HAYLEY ARREDONDO Date/Time of Note DATE: 09/18/18 TIME: 12:29 Subjective Patient continues bilevel ventilation this morning. Somewhat more alert. Objective Vital Signs Date Temp Pulse Resp B/P (MAP) Pulse Ox O2 O2 Flow FiO2 Time Delivery Rate 09/18/18 157 10:10 09/18/18 26 96 60 09:03 09/18/18 120/85 BIPAP 07:00 (97) 09/18/18 97.8 04:00 09/16/18 15.0 22:52 Intake and Output 09/17/18 09/17/18 09/18/18 1414:59 22:59 06:59 IntakeIntake Total 320.4 ml 50 ml 100 ml OutputOutput Total 320 ml 1950 ml 1290 ml BalanceBalance 0.4 ml -1900 ml -1190 ml Exam Elderly lady comfortable at rest GENERAL: VITAL SIGNS: per chart NECK: Supple. No JVD or lymphadenopathy. CARDIAC EXAM: S1, S2. No added sounds or murmurs. CHEST: Diminished bilaterally ABDOMEN: Soft, nontender. No guarding or rebound. EXTREMITIES: No cyanosis, clubbing or edema. NEUROLOGIC: Generalized weakness. No focal deficits. Vent Setting Fraction of Inspired Oxygen pe: 60 Results/Medications Result Diagram: 09/18/18 0455 09/18/18 0455 Results 24 hrs Laboratory Tests Test 09/17/18 17:13 09/17/18 21:10 09/18/18 04:55 09/18/18 05:22 Bedside Glucose 122 104 75 White Blood 8.5 # Count Red Blood Count 3.09 L Hemoglobin 9.9 L Hematocrit 30.6 L Mean Corpuscular 99.0 Volume Mean Corpuscular 32.0 Hemoglobin Mean Corpuscular 32.4 Hemoglobin Myrna nt Red Cell 13.3 Distribution Width Platelet Count 143 Mean Platelet 10.2 Volume Immature 0.600 H Granulocytes % Neutrophils % 82.7 H Lymphocytes % 10.0 L Monocytes % 6.4 Eosinophils % 0.2 Basophils % 0.1 Nucleated Red 0.2 H Blood Cells % Immature 0.050 H Granulocytes # Neutrophils # 7.1 Lymphocytes # 0.9 Monocytes # 0.6 Eosinophils # 0.0 Basophils # 0.0 Nucleated Red 0.0 Blood Cells # Prothrombin Time 19.2 H Prothrombin Time 1.5 Ratio INR 1.61 International Normalized Ratio Sodium Level 142 Potassium Level 3.3 L Chloride Level 100 Carbon Dioxide 32 H Level Anion Gap 10 Blood Urea 28 H Nitrogen Creatinine 1.08 H Est Glomerular Filtrat Rate mL/min Glucose Level 77 # Calcium Level 8.6 Magnesium Level 1.6 L Total Bilirubin 0.4 Direct Bilirubin 0.00 Indirect 0.4 Bilirubin Aspartate Amino 949 H Transf (AST/SGOT ) Alanine 2059 H Aminotransferase (ALT/SGPT) Alkaline 150 H Phosphatase Creatine Kinase 108 Creatine Kinase 3.2 Index Creatinine 3.50 H Kinase MB (Mass) Troponin I 5.450 *H B-Type 73757 H Natriuretic Peptide Total Protein 6.7 Albumin 3.2 L Globulin 3.50 H Albumin/Globulin 0.91 Ratio Test 09/18/18 07:00 09/18/18 09:28 09/18/18 11:03 Blood Gas Blood arterial Specimen Source Arterial Blood 09/18/2018 9:12: Date Drawn 15 AM Arterial Blood 7.448 pH (Temp corrected) Arterial Blood 38.5 pCO2 (Temp correct) Arterial Blood 71.1 L pO2 (Temp corrected) Arterial Blood 26.0 HCO3 Arterial Blood 2.0 Base Excess Arterial Blood 92.4 L Oxygen Saturatio n Aroldo Test ACCEPTAB Arterial Blood Right Radial Gas Puncture Site Arterial 0.3 Blood Carboxyhem oglobin Arterial Blood 0 Methemoglobin Blood Gas A-a O2 314.4 H Differential Oxyhemoglobin 92.1 L Percent Blood Gas 37.0 Temperature Blood Gas 12.0 Respiration Rate Blood Gas MASK - BIPAP Modality FiO2 60.0 Blood Gas 10/5 IPAP/EPAP Ratio Blood Gas JINA Nuñez Notified Whom Blood Gas 09/18/2018 9:21: Notified Time 12 AM Bedside Glucose 78 Lab Scanned REFERENCE LAB Report Medications Current Medications IV Flush (NS 3 ml) 3 ml PER PROTOCOL IV ; Start 09/14/18 at 19:30 Ondansetron HCl (Zofran Inj) 4 mg Q6H PRN IV NAUSEA/VOMITING; Start 09/14/18 at 19:30 Acetaminophen (Tylenol Tab) 650 mg Q6H PRN PO .PAIN 1-3 OR TEMP; Start 09/14/18 at 19:30 Acetaminophen/ Hydrocodone Bitart ([place] (5/325)) 1 tab Q6H PRN PO .MOD PAIN 4- 6 Last administered on 09/14/18 22:07; Admin Dose 1 TAB; Start 09/14/18 at 19:30 Morphine Sulfate (morphine) 2 mg Q4H PRN IV .SEVERE PAIN 7-10 Last administered on 09/17/18 13:38; Admin Dose 2 MG; Start 09/14/18 at 19:30 Docusate Sodium (Colace) 100 mg Q12H PRN PO .CONSTIPATION; Start 09/14/18 at 19:30 Zolpidem Tartrate (Ambien) 5 mg QHS PRN PO .INSOMNIA; Start 09/14/18 at 19:30 Aspirin (Aspirin) 81 mg DAILY PO Last administered on 09/17/18 08:13; Admin Dose 81 MG; Start 09/15/18 at 09:00 Budesonide (Pulmicort (Neb)) 0.5 mg BID RESP THERAPY HHN Last administered on 09/18/18 09:00; Admin Dose 0.5 MG; Start 09/15/18 at 09:00 Albuterol/ Ipratropium (Duoneb) 3 ml Q2H RESP THERAPY PRN HHN shortness of breath Last administered on 09/16/18 11:25; Admin Dose 3 ML; Start 09/15/18 at 00:00 Albuterol/ Ipratropium (Duoneb) 3 ml Q6H RESP THERAPY HHN Last administered on 09/18/18 09:00; Admin Dose 3 ML; Start 09/15/18 at 02:00 Nitroglycerin (Nitroglycerin (Sl Tab) 0.4 Mg) 1 tab Q5M PRN SL ANGINA; Start 09/15/18 at 00:00 Piperacillin Sod/ Tazobactam Sod 50 ml @ 100 mls/hr Q6 IVPB Last administered on 09/18/18 05:19; Admin Dose 100 MLS/HR; Start 09/15/18 at 00:16 Norepinephrine 16 mg/Dextrose 250 ml @ 0.94 mls/hr TITRATE IV Last administered on 09/15/18 06:26; Admin Dose 0.94 MLS/HR; Start 09/15/18 at 05:30 Insulin Glargine (Lantus) 12 units DAILY SC Last administered on 09/17/18at 08:28; Admin Dose 12 UNITS; Start 09/15/18 at 13:30 Atorvastatin Calcium (Lipitor) 80 mg HS PO Last administered on 09/16/18at 21:01; Admin Dose 80 MG; Start 09/15/18 at 21:00 Miscellaneous Information 1 ea NOTE XX ; Start 09/16/18 at 12:00 Glucose (Glutose) 15 gm Q15M PRN PO DECREASED GLUCOSE; Start 09/16/18 at 12:00 Glucose (Glutose) 22.5 gm Q15M PRN PO DECREASED GLUCOSE; Start 09/16/18 at 12:00 Dextrose (D50w Syringe) 25 ml Q15M PRN IV DECREASED GLUCOSE; Start 09/16/18 at 12:00 Dextrose (D50w Syringe) 50 ml Q15M PRN IV DECREASED GLUCOSE; Start 09/16/18 at 12:00 Glucagon (Glucagen) 1 mg Q15M PRN IM DECREASED GLUCOSE; Start 09/16/18 at 12:00 Glucose (Glutose) 15 gm Q15M PRN BUCCAL DECREASED GLUCOSE; Start 09/16/18 at 12:00 Enoxaparin Sodium (Lovenox) 60 mg Q12 SC Last administered on 09/18/18at 09:30; Admin Dose 60 MG; Start 09/17/18 at 09:00 Potassium Chloride 50 ml @ 25 mls/hr Q2H IVPB ; Start 09/18/18 at 10:00; Stop 09/18/18 at 17:59 Furosemide (Lasix) 40 mg BID DIURETICS IV Last administered on 09/18/18at 09:25; Admin Dose 40 MG; Start 09/18/18 at 07:30 Insulin Aspart (Novolog Insulin Pen) NOVOLOG *MILD* ALGORI... Q6 SC ; Start 09/18/18 at 12:00 Amiodarone HCl 900 mg/Dextrose 500 ml @ 0 mls/hr Q0M IV Last administered on 09/18/18at 10:47; Admin Dose 16.7 MLS/HR; Start 09/18/18 at 11:00 Assessment/Plan Hospital Course (Demo Recall) IMPRESSION AND PLAN: 1. Status post septic shock, likely secondary to urinary tract infection. 2. Possible community-acquired pneumonia. 3. Pulmonary edema with acute hypoxemic respiratory failure. Progressive hypoxemia secondary to pulmonary edema 4. Renal insufficiency, likely acute tubular necrosis injury. 5. 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 Continue broad-spectrum antibiotics. 2. Decrease IV fluids IV diuresis 3. Cardiac catheterization this morning with possible intervention 4. Continue bilevel ventilation 5. DVT and GI prophylaxis. Critical care time 40 minutes. Prognosis guarded ALEN FLORES MD, [facility] Sep 18, 2018 12:36
[2018-09-18] MEDS ORDERED: DILTIAZEM-D5W 125MG/125ML DRIP 125 ML IV SCH (17:30)
[2018-09-18] MEDS: ATORVASTATIN 80 MG TAB PO SCH (20:34)
--- NOTE | 2018-09-18 21:56 | PN ---
Date/Time of Note Date/Time of Note DATE: 09/18/18 TIME: 21:55 Assessment/Plan Lines/Catheters IV Catheter Type (from Nrs): Central Line Rebollar in Place (from Nrs): Yes Assessment/Plan Assessment/Plan 1. Three-vessel coronary artery disease: 2. Obesity. 3. Renal failure. 4. Sepsis. RECOMMENDATIONS: I had a long talk with the patient's family. At this time, I do not think she is a candidate to undergo surgery because of her risk being too high. The family also does not want to proceed with surgery. We will continue medical management. Subjective Subjective 24 Hr Interval Summary Constitutional: improved Pain Control: mild Exam/Review of Systems Vital Signs Vitals Vital Signs Date Temp Pulse Resp B/P (MAP) Pulse Ox O2 O2 Flow FiO2 Time Delivery Rate 09/18/18 92 65 20:05 09/18/18 85 27 20:05 09/18/18 146/59 18:45 (88) 09/18/18 High Flow 18:00 09/18/18 98.7 16:00 09/16/18 15.0 22:52 Intake and Output 09/17/18 09/17/18 09/18/18 1515:00 23:00 07:00 IntakeIntake Total 320.4 ml 50 ml 100 ml OutputOutput Total 400 ml 2065 ml 1075 ml BalanceBalance -79.6 ml -2015 ml -975 ml Exam Eyes: nl conjunctiva, EOMI, nl lids, nl sclera ENMT: nl external ears & nose, nl lips & teeth, nl nasal mucosa & septum, mucosa pink and moist Neck: supple, non-tender Respiratory: clear to auscultation, normal air movement Cardiovascular: regular rate and rhythm, nl pulses Gastrointestinal: soft, nl liver, spleen, non-tender Results Result Diagram: 09/18/18 0455 09/18/18 0455 JUAN MOORE MD Sep 18, 2018 21:56
[2018-09-19] VITALS (25 sets, daily range): BP systolic 124–166; BP diastolic 49–77; PULSE 73–93; RESP 2–27
[2018-09-19] MEDS: ALBUTEROL/IPRATROPIUM (NEB) 3 ML AMP HHN SCH ×4 (01:11→19:57)
[2018-09-19] MEDS: FUROSEMIDE 40 MG INJ IV SCH ×2 (05:29→18:04)
[2018-09-19] MEDS: PIPER-TAZO 2.25 GM/NS 50 ML IVPB SCH ×4 (05:29→23:50)
[2018-09-19] MEDS: INSULIN ASPART [NOVOLOG] 3 ML PEN SC SCH ×3 (05:35→18:00)
[2018-09-19] MEDS: POTASSIUM CHLORIDE 50 ML IVPB SCH ×2 (06:48→09:48)
[2018-09-19] MEDS: BUDESONIDE (NEB) 0.5MG/2ML AMP HHN SCH ×2 (08:28→19:57)
[2018-09-19] MEDS: INSULIN GLARGINE [LANTus] (100 UNITS/ML) SYG SC SCH (08:42)
[2018-09-19] MEDS: ASPIRIN 81 MG TAB PO SCH (09:48)
[2018-09-19] MEDS: ENOXAPARIN 60 MG/0.6 ML SYG SC SCH ×2 (09:58→20:37)
--- NOTE | 2018-09-19 10:13 | CONS ---
Assessment/Plan Assessment/Plan Assessment/Plan (Daily) 1. acute Renal failure 2/2 Hemodynamics from CHF 2. acute CHF, possibly systolic with low EF 3. atrial fibrillation with RVR 5. septich shock possibly due to UTI 6. UTI with Urine cx growing Group B streptoccoci 7. Acute NSTEMI s/p LHC on 09/15/18 that showed multivessel obstructive CAD 8. h/o HTN 9. H/o DM II 10. H/o HL 11. metabolic acidosis due to Septic shock + renal failure 12. atrial fibrillation with RVR Plan: More alert today, on High flow oxygen, Code status changed to DNR, BUN/Cr 27/1.1, K 3.4, K replacement ordered S/p LHC that showed multivessel obstructive CAD- s/p CT surgery evaluation, too high risk for surgery , family wants to wait, medical management for now on amiodarone gtt for rate control for atrial fibrillation IV abx zosyn for sepsis, renally dose all abx and monitor electrolytes will follow up Consultation Date/Type/Reason Admit Date/Time Sep 14, 2018 at 17:13 Initial Consult Date 09/15/18 Type of Consult NEPHROLOGY Requesting Provider: HAYLEY ARREDONDO Date/Time of Note DATE: 09/19/18 TIME: 10:05 24 HR Interval Summary Free Text/Dictation pt is on high flow oxygen, more alert, BUN/Cr slightly better, Bp stable Exam/Review of Systems Exam Vitals Vital Signs Date Temp Pulse Resp B/P (MAP) Pulse Ox O2 O2 Flow FiO2 Time Delivery Rate 09/19/18 79 20 95 55 08:28 09/19/18 146/57 High Flow 07:00 (86) 09/19/18 98.1 04:00 09/16/18 15.0 22:52 Intake and Output 09/18/18 09/18/18 09/19/18 1414:59 22:59 06:59 IntakeIntake Total 429.2 ml 308.6 ml 233.6 ml OutputOutput Total 1615 ml 910 ml 630 ml BalanceBalance -1185.8 ml -601.4 ml -396.4 ml Exam Constitutional: more alert, mild distress, on high flow oxygen Respiratory: Bibasilar crackles, no wheezing Cardiovascular: regular rate and rhythm, nl pulses Gastrointestinal: soft, non-tender Extremities: normal pulses Neurological: Non focal Lymph: nl lymph nodes Results Result Diagram: 09/19/18 0450 09/19/18 0450 Results 24hrs Laboratory Tests Test 09/18/18 11:03 09/18/18 12:29 09/18/18 18:30 09/18/18 23:29 Lab Scanned REFERENCE LAB Report Bedside Glucose 103 104 112 Test 09/19/18 04:50 09/19/18 05:32 09/19/18 08:04 09/19/18 08:30 White Blood 8.5 Count Red Blood Count 3.05 L Hemoglobin 9.6 L Hematocrit 29.8 L Mean Corpuscular 97.7 Volume Mean Corpuscular 31.5 Hemoglobin Mean Corpuscular 32.2 Hemoglobin Myrna nt Red Cell 13.0 Distribution Width Platelet Count 167 Mean Platelet 9.9 Volume Immature 0.500 H Granulocytes % Neutrophils % 80.9 H Lymphocytes % 9.2 L Monocytes % 8.6 Eosinophils % 0.7 Basophils % 0.1 Nucleated Red 0.2 H Blood Cells % Immature 0.040 H Granulocytes # Neutrophils # 6.9 Lymphocytes # 0.8 Monocytes # 0.7 Eosinophils # 0.1 Basophils # 0.0 Nucleated Red 0.0 Blood Cells # Sodium Level 142 Potassium Level 3.4 L Chloride Level 102 Carbon Dioxide 32 H Level Anion Gap 8 Blood Urea 27 H Nitrogen Creatinine 1.10 H Est Glomerular Filtrat Rate mL/min Glucose Level 130 # Calcium Level 8.3 L Phosphorus Level 2.7 Magnesium Level 2.2 Total Bilirubin 0.6 Direct Bilirubin 0.00 Indirect 0.6 Bilirubin Aspartate Amino 205 H Transf (AST/SGOT ) Alanine 1073 H Aminotransferase (ALT/SGPT) Alkaline 134 H Phosphatase B-Type 62306 H Natriuretic Peptide Total Protein 6.0 L Albumin 2.8 L Globulin 3.20 Albumin/Globulin 0.87 Ratio Bedside Glucose 127 143 Blood Gas Blood arterial Specimen Source Arterial Blood 09/19/2018 8:06: Date Drawn 20 AM Arterial Blood 7.465 H pH (Temp corrected) Arterial Blood 39.4 pCO2 (Temp correct) Arterial Blood 70.9 L pO2 (Temp corrected) Arterial Blood 27.7 H HCO3 Arterial Blood 3.8 H Base Excess Arterial Blood 94.1 L Oxygen Saturatio n Aroldo Test ACCEPTAB Arterial Blood Right Radial Gas Puncture Site Arterial 0.7 Blood Carboxyhem oglobin Arterial Blood 0.1 Methemoglobin Blood Gas A-a O2 277.4 H Differential Oxyhemoglobin 93.3 Percent Blood Gas 37.0 Temperature Blood Gas HFNC Modality FiO2 55.0 Blood Gas TM Notified Whom Blood Gas 09/19/2018 8:19: Notified Time 53 AM Test 09/19/18 08:32 Bedside Glucose 150 Medications Medication Current Medications IV Flush (NS 3 ml) 3 ml PER PROTOCOL IV ; Start 09/14/18 at 19:30 Ondansetron HCl (Zofran Inj) 4 mg Q6H PRN IV NAUSEA/VOMITING; Start 09/14/18 at 19:30 Acetaminophen (Tylenol Tab) 650 mg Q6H PRN PO .PAIN 1-3 OR TEMP; Start 09/14/18 at 19:30 Acetaminophen/ Hydrocodone Bitart ([place] (5/325)) 1 tab Q6H PRN PO .MOD PAIN 4- 6 Last administered on 09/14/18at 22:07; Admin Dose 1 TAB; Start 09/14/18 at 19:30 Morphine Sulfate (morphine) 2 mg Q4H PRN IV .SEVERE PAIN 7-10 Last administered on 09/17/18at 13:38; Admin Dose 2 MG; Start 09/14/18 at 19:30 Docusate Sodium (Colace) 100 mg Q12H PRN PO .CONSTIPATION; Start 09/14/18 at 19:30 Zolpidem Tartrate (Ambien) 5 mg QHS PRN PO .INSOMNIA; Start 09/14/18 at 19:30 Aspirin (Aspirin) 81 mg DAILY PO Last administered on 09/19/18at 09:48; Admin Dose 81 MG; Start 09/15/18 at 09:00 Budesonide (Pulmicort (Neb)) 0.5 mg BID RESP THERAPY HHN Last administered on 09/19/18at 08:28; Admin Dose 0.5 MG; Start 09/15/18 at 09:00 Albuterol/ Ipratropium (Duoneb) 3 ml Q2H RESP THERAPY PRN HHN shortness of breath Last administered on 09/16/18at 11:25; Admin Dose 3 ML; Start 09/15/18 at 00:00 Albuterol/ Ipratropium (Duoneb) 3 ml Q6H RESP THERAPY HHN Last administered on 09/19/18at 08:28; Admin Dose 3 ML; Start 09/15/18 at 02:00 Nitroglycerin (Nitroglycerin (Sl Tab) 0.4 Mg) 1 tab Q5M PRN SL ANGINA; Start 09/15/18 at 00:00 Piperacillin Sod/ Tazobactam Sod 50 ml @ 100 mls/hr Q6 IVPB Last administered on 09/19/18at 05:29; Admin Dose 100 MLS/HR; Start 09/15/18 at 00:16 Norepinephrine 16 mg/Dextrose 250 ml @ 0.94 mls/hr TITRATE IV Last administered on 09/15/18at 06:26; Admin Dose 0.94 MLS/HR; Start 09/15/18 at 05:30 Atorvastatin Calcium (Lipitor) 80 mg HS PO Last administered on 09/16/18at 21:01; Admin Dose 80 MG; Start 09/15/18 at 21:00 Miscellaneous Information 1 ea NOTE XX ; Start 09/16/18 at 12:00 Glucose (Glutose) 15 gm Q15M PRN PO DECREASED GLUCOSE; Start 09/16/18 at 12:00 Glucose (Glutose) 22.5 gm Q15M PRN PO DECREASED GLUCOSE; Start 09/16/18 at 12:00 Dextrose (D50w Syringe) 25 ml Q15M PRN IV DECREASED GLUCOSE; Start 09/16/18 at 12:00 Dextrose (D50w Syringe) 50 ml Q15M PRN IV DECREASED GLUCOSE; Start 09/16/18 at 12:00 Glucagon (Glucagen) 1 mg Q15M PRN IM DECREASED GLUCOSE; Start 09/16/18 at 12:00 Glucose (Glutose) 15 gm Q15M PRN BUCCAL DECREASED GLUCOSE; Start 09/16/18 at 12:00 Enoxaparin Sodium (Lovenox) 60 mg Q12 SC Last administered on 09/19/18at 09:58; Admin Dose 60 MG; Start 09/17/18 at 09:00 Furosemide (Lasix) 40 mg BID DIURETICS IV Last administered on 09/19/18at 05:29; Admin Dose 40 MG; Start 09/18/18 at 07:30 Insulin Aspart (Novolog Insulin Pen) NOVOLOG *MILD* ALGORI... Q6 SC ; Start 09/18/18 at 12:00 Amiodarone HCl 900 mg/Dextrose 500 ml @ 0 mls/hr Q0M IV Last administered on 09/18/18at 10:47; Admin Dose 16.7 MLS/HR; Start 09/18/18 at 11:00 Diltiazem HCl 125 ml @ 5 mls/hr TITRATE IV ; Start 09/18/18 at 17:30 Potassium Chloride 50 ml @ 25 mls/hr Q2H IVPB Last administered on 09/19/18at 09:48; Admin Dose 25 MLS/HR; Start 09/19/18 at 07:00; Stop 09/19/18 at 10:59 BEKA HARPER MD Sep 19, 2018 10:13
--- NOTE | 2018-09-19 11:36 | CONS ---
Consult Date/Type/Reason Admit Date/Time Sep 14, 2018 at 17:13 Initial Consult Date 09/15/18 Type of Consult Pulmonary Requesting Provider: HAYLEY ARREDONDO Date/Time of Note DATE: 09/19/18 TIME: 11:35 Subjective Better, less short of breath. On high flow, more alert. Objective Vital Signs Date Temp Pulse Resp B/P (MAP) Pulse Ox O2 O2 Flow FiO2 Time Delivery Rate 09/19/18 96 45 11:20 09/19/18 79 20 08:28 09/19/18 146/57 High Flow 07:00 (86) 09/19/18 98.1 04:00 09/16/18 15.0 22:52 Intake and Output 09/18/18 09/18/18 09/19/18 1414:59 22:59 06:59 IntakeIntake Total 429.2 ml 308.6 ml 233.6 ml OutputOutput Total 1615 ml 910 ml 630 ml BalanceBalance -1185.8 ml -601.4 ml -396.4 ml Exam Elderly lady comfortable at rest GENERAL: VITAL SIGNS: per chart NECK: Supple. No JVD or lymphadenopathy. CARDIAC EXAM: S1, S2. No added sounds or murmurs. CHEST: Diminished bilaterally ABDOMEN: Soft, nontender. No guarding or rebound. EXTREMITIES: No cyanosis, clubbing or edema. NEUROLOGIC: Generalized weakness. No focal deficits. Vent Setting Fraction of Inspired Oxygen pe: 45 Results/Medications Result Diagram: 09/19/18 0450 09/19/18 0450 Results 24 hrs Laboratory Tests Test 09/18/18 12:29 09/18/18 18:30 09/18/18 23:29 09/19/18 04:50 Bedside Glucose 103 104 112 White Blood Count 8.5 Red Blood Count 3.05 L Hemoglobin 9.6 L Hematocrit 29.8 L Mean Corpuscular 97.7 Volume Mean Corpuscular 31.5 Hemoglobin Mean Corpuscular 32.2 Hemoglobin Concen t Red Cell 13.0 Distribution Width Platelet Count 167 Mean Platelet 9.9 Volume Immature 0.500 H Granulocytes % Neutrophils % 80.9 H Lymphocytes % 9.2 L Monocytes % 8.6 Eosinophils % 0.7 Basophils % 0.1 Nucleated Red 0.2 H Blood Cells % Immature 0.040 H Granulocytes # Neutrophils # 6.9 Lymphocytes # 0.8 Monocytes # 0.7 Eosinophils # 0.1 Basophils # 0.0 Nucleated Red 0.0 Blood Cells # Sodium Level 142 Potassium Level 3.4 L Chloride Level 102 Carbon Dioxide 32 H Level Anion Gap 8 Blood Urea 27 H Nitrogen Creatinine 1.10 H Est Glomerular Filtrat Rate mL/min Glucose Level 130 # Calcium Level 8.3 L Phosphorus Level 2.7 Magnesium Level 2.2 Total Bilirubin 0.6 Direct Bilirubin 0.00 Indirect 0.6 Bilirubin Aspartate Amino 205 H Transf (AST/SGOT) Alanine 1073 H Aminotransferase (ALT/SGPT) Alkaline 134 H Phosphatase B-Type 66995 H Natriuretic Peptide Total Protein 6.0 L Albumin 2.8 L Globulin 3.20 Albumin/Globulin 0.87 Ratio Test 09/19/18 05:32 09/19/18 08:04 09/19/18 08:30 09/19/18 08:32 Bedside Glucose 127 143 150 Blood Gas Blood arterial Specimen Source Arterial Blood 09/19/2018 8:06:2 Date Drawn 0 AM Arterial Blood pH 7.465 H (Temp corrected) Arterial Blood 39.4 pCO2 (Temp correct) Arterial Blood 70.9 L pO2 (Temp corrected) Arterial Blood 27.7 H HCO3 Arterial Blood 3.8 H Base Excess Arterial Blood 94.1 L Oxygen Saturation Aroldo Test ACCEPTAB Arterial Blood Right Radial Gas Puncture Site Arterial 0.7 Blood Carboxyhemo globin Arterial Blood 0.1 Methemoglobin Blood Gas A-a O2 277.4 H Differential Oxyhemoglobin 93.3 Percent Blood Gas 37.0 Temperature Blood Gas HFNC Modality FiO2 55.0 Blood Gas TM Notified Whom Blood Gas 09/19/2018 8:19:5 Notified Time 3 AM Medications Current Medications IV Flush (NS 3 ml) 3 ml PER PROTOCOL IV ; Start 09/14/18 at 19:30 Ondansetron HCl (Zofran Inj) 4 mg Q6H PRN IV NAUSEA/VOMITING; Start 09/14/18 at 19:30 Acetaminophen (Tylenol Tab) 650 mg Q6H PRN PO .PAIN 1-3 OR TEMP; Start 09/14/18 at 19:30 Acetaminophen/ Hydrocodone Bitart ([place] (5/325)) 1 tab Q6H PRN PO .MOD PAIN 4- 6 Last administered on 09/14/18at 22:07; Admin Dose 1 TAB; Start 09/14/18 at 19:30 Morphine Sulfate (morphine) 2 mg Q4H PRN IV .SEVERE PAIN 7-10 Last administered on 09/17/18 13:38; Admin Dose 2 MG; Start 09/14/18 at 19:30 Docusate Sodium (Colace) 100 mg Q12H PRN PO .CONSTIPATION; Start 09/14/18 at 19:30 Zolpidem Tartrate (Ambien) 5 mg QHS PRN PO .INSOMNIA; Start 09/14/18 at 19:30 Aspirin (Aspirin) 81 mg DAILY PO Last administered on 09/19/18 09:48; Admin Dose 81 MG; Start 09/15/18 at 09:00 Budesonide (Pulmicort (Neb)) 0.5 mg BID RESP THERAPY HHN Last administered on 09/19/18 08:28; Admin Dose 0.5 MG; Start 09/15/18 at 09:00 Albuterol/ Ipratropium (Duoneb) 3 ml Q2H RESP THERAPY PRN HHN shortness of scott ath Last administered on 09/16/18 11:25; Admin Dose 3 ML; Start 09/15/18 at 00:00 Albuterol/ Ipratropium (Duoneb) 3 ml Q6H RESP THERAPY HHN Last administered on 09/19/18 08:28; Admin Dose 3 ML; Start 09/15/18 at 02:00 Nitroglycerin (Nitroglycerin (Sl Tab) 0.4 Mg) 1 tab Q5M PRN SL ANGINA; Start 09/15/18 at 00:00 Piperacillin Sod/ Tazobactam Sod 50 ml @ 100 mls/hr Q6 IVPB Last administered on 09/19/18 05:29; Admin Dose 100 MLS/HR; Start 09/15/18 at 00:16 Norepinephrine 16 mg/Dextrose 250 ml @ 0.94 mls/hr TITRATE IV Last administered on 09/15/18 06:26; Admin Dose 0.94 MLS/HR; Start 09/15/18 at 05:30 Atorvastatin Calcium (Lipitor) 80 mg HS PO Last administered on 09/16/18 21:01; Admin Dose 80 MG; Start 09/15/18 at 21:00 Miscellaneous Information 1 ea NOTE XX ; Start 09/16/18 at 12:00 Glucose (Glutose) 15 gm Q15M PRN PO DECREASED GLUCOSE; Start 09/16/18 at 12:00 Glucose (Glutose) 22.5 gm Q15M PRN PO DECREASED GLUCOSE; Start 09/16/18 at 12:00 Dextrose (D50w Syringe) 25 ml Q15M PRN IV DECREASED GLUCOSE; Start 09/16/18 at 12:00 Dextrose (D50w Syringe) 50 ml Q15M PRN IV DECREASED GLUCOSE; Start 09/16/18 at 12:00 Glucagon (Glucagen) 1 mg Q15M PRN IM DECREASED GLUCOSE; Start 09/16/18 at 12:00 Glucose (Glutose) 15 gm Q15M PRN BUCCAL DECREASED GLUCOSE; Start 09/16/18 at 12:00 Enoxaparin Sodium (Lovenox) 60 mg Q12 SC Last administered on 09/19/18at 09:58; Admin Dose 60 MG; Start 09/17/18 at 09:00 Furosemide (Lasix) 40 mg BID DIURETICS IV Last administered on 09/19/18at 05:29; Admin Dose 40 MG; Start 09/18/18 at 07:30 Insulin Aspart (Novolog Insulin Pen) NOVOLOG *MILD* ALGORI... Q6 SC ; Start 09/18/18 at 12:00 Amiodarone HCl 900 mg/Dextrose 500 ml @ 0 mls/hr Q0M IV Last administered on 09/18/18at 10:47; Admin Dose 16.7 MLS/HR; Start 09/18/18 at 11:00 Diltiazem HCl 125 ml @ 5 mls/hr TITRATE IV ; Start 09/18/18 at 17:30 Potassium Phosphate 30 mm/ Sodium Chloride 260 ml @ 65 mls/hr ONCE ONCE IVPB ; Start 09/19/18 at 12:00; Stop 09/19/18 at 15:59 Assessment/Plan Hospital Course (Demo Recall) IMPRESSION AND PLAN: 1. Status post septic shock, likely secondary to urinary tract infection. 2. Possible community-acquired pneumonia. 3. Pulmonary edema with acute hypoxemic respiratory failure. Progressive hypoxemia secondary to pulmonary edema 4. Renal insufficiency, likely acute tubular necrosis injury. 5. Non-ST elevation CO, ischemic cardia myopathy with severe aortic stenosis status post cardiac cath PLAN: 1. Continue broad-spectrum antibiotics. 2. Decrease IV fluids IV diuresis 3. Cardiac catheterization this morning with possible intervention 4. Continue bilevel ventilation 5. DVT and GI prophylaxis. Critical care time 40 minutes. Prognosis guarded transfer to [facility]. ALEN FLORES MD, [facility] Sep 19, 2018 11:36
[2018-09-19] MEDS ORDERED: POTASSIUM PHOSPHATE 30 MM in SOD CHLORIDE 0.9% 250 ML IVPB ONE (12:00)
--- NOTE | 2018-09-19 14:46 | PN ---
Date/Time of Note Date/Time of Note DATE: 09/19/18 TIME: 14:36 Assessment/Plan VTE Prophylaxis Risk score (from Nsg)>0 risk: 9 SCD applied (from Nsg): Yes Pharmacological prophylaxis: heparin Lines/Catheters IV Catheter Type (from Nrsg): Central Line Central line still needed: Yes Urinary Cath still in place: Yes Reason Cath still needed: terminal illness/intractable pain (respiratory distress) Assessment/Plan Assessment/Plan 1. Acute hypoxic respiratory failure- improving - On high flow, 35L on 55% - Pulm on board and appreciate recommendations - Cardiology on board and continuing aggressive diuresis 2. A. fib with RVR- resolved - Patient back in sinus rhythm and regular rate 3. Sepsis secondary to UTI and/or pneumonia- stable - Continue IV antibiotics and final cultures noted 4. NSTEMI - s/p LHC on 09/16 that showed triple vessel disease - CT surgery input appreciated and not recommending surgical intervention due to high risk - will continue aggressive medical management per Cardiology recommendations 5. Diabetes - A1c noted - ISS and accuchecks 6. HTN - BP stable 7. Normocytic anemia likely secondary chronic disease - Monitor - no need for transfusion at this time 8. Disposition - Stable for downgrade to Telemetry Result Diagram: 09/19/18 0450 09/19/18 1320 Results 24hrs Laboratory Tests Test 09/18/18 18:30 09/18/18 23:29 09/19/18 04:50 09/19/18 05:32 Bedside Glucose 104 112 127 White Blood Count 8.5 Red Blood Count 3.05 L Hemoglobin 9.6 L Hematocrit 29.8 L Mean Corpuscular 97.7 Volume Mean Corpuscular 31.5 Hemoglobin Mean Corpuscular 32.2 Hemoglobin Concen t Red Cell 13.0 Distribution Width Platelet Count 167 Mean Platelet 9.9 Volume Immature 0.500 H Granulocytes % Neutrophils % 80.9 H Lymphocytes % 9.2 L Monocytes % 8.6 Eosinophils % 0.7 Basophils % 0.1 Nucleated Red 0.2 H Blood Cells % Immature 0.040 H Granulocytes # Neutrophils # 6.9 Lymphocytes # 0.8 Monocytes # 0.7 Eosinophils # 0.1 Basophils # 0.0 Nucleated Red 0.0 Blood Cells # Sodium Level 142 Potassium Level 3.4 L Chloride Level 102 Carbon Dioxide 32 H Level Anion Gap 8 Blood Urea 27 H Nitrogen Creatinine 1.10 H Est Glomerular Filtrat Rate mL/min Glucose Level 130 # Calcium Level 8.3 L Phosphorus Level 2.7 Magnesium Level 2.2 Total Bilirubin 0.6 Direct Bilirubin 0.00 Indirect 0.6 Bilirubin Aspartate Amino 205 H Transf (AST/SGOT) Alanine 1073 H Aminotransferase (ALT/SGPT) Alkaline 134 H Phosphatase B-Type 50612 H Natriuretic Peptide Total Protein 6.0 L Albumin 2.8 L Globulin 3.20 Albumin/Globulin 0.87 Ratio Test 09/19/18 08:04 09/19/18 08:30 09/19/18 08:32 09/19/18 12:50 Blood Gas Blood arterial Specimen Source Arterial Blood 09/19/2018 8:06:2 Date Drawn 0 AM Arterial Blood pH 7.465 H (Temp corrected) Arterial Blood 39.4 pCO2 (Temp correct) Arterial Blood 70.9 L pO2 (Temp corrected) Arterial Blood 27.7 H HCO3 Arterial Blood 3.8 H Base Excess Arterial Blood 94.1 L Oxygen Saturation Aroldo Test ACCEPTAB Arterial Blood Right Radial Gas Puncture Site Arterial 0.7 Blood Carboxyhemo globin Arterial Blood 0.1 Methemoglobin Blood Gas A-a O2 277.4 H Differential Oxyhemoglobin 93.3 Percent Blood Gas 37.0 Temperature Blood Gas HFNC Modality FiO2 55.0 Blood Gas TM Notified Whom Blood Gas 09/19/2018 8:19:5 Notified Time 3 AM Bedside Glucose 143 150 140 Test 09/19/18 13:20 Sodium Level 142 Potassium Level 3.9 Chloride Level 101 Carbon Dioxide 34 H Level Anion Gap 7 Blood Urea 28 H Nitrogen Creatinine 1.02 H Est Glomerular Filtrat Rate mL/min Glucose Level 143 Calcium Level 8.4 Subjective 24 Hr Interval Summary Free Text/Dictation Patient tolerating high flow this am and more alert. Family at bedside. No acute overnight events. Exam/Review of Systems Exam Vitals Vital Signs Date Temp Pulse Resp B/P (MAP) Pulse Ox O2 O2 Flow FiO2 Time Delivery Rate 09/19/18 79 20 143/61 97 High Flow 14:00 (88) 09/19/18 98.0 12:00 09/19/18 45 11:20 09/16/18 15.0 22:52 Intake and Output 09/18/18 09/18/18 09/19/18 1515:00 23:00 07:00 IntakeIntake Total 474.9 ml 279.6 ml 233.6 ml OutputOutput Total 1725 ml 900 ml 730 ml BalanceBalance -1250.1 ml -620.4 ml -496.4 ml Exam General: Patient is a pleasant female, on high flow, no acute distress Neck: Supple Chest: Nontender Lungs: Crackles at bases, no wheezing appreciated Heart: Normal S1-S2, Regular rate and rhythm, Systolic murmur Abdomen: Soft , nontender, nondistended , bowel sounds are present. No guarding no rebound tenderness Skin: no acute rashes appreciated Results Results 24hrs Laboratory Tests Test 09/18/18 18:30 09/18/18 23:29 09/19/18 04:50 09/19/18 05:32 Bedside Glucose 104 112 127 White Blood Count 8.5 Red Blood Count 3.05 L Hemoglobin 9.6 L Hematocrit 29.8 L Mean Corpuscular 97.7 Volume Mean Corpuscular 31.5 Hemoglobin Mean Corpuscular 32.2 Hemoglobin Concen t Red Cell 13.0 Distribution Width Platelet Count 167 Mean Platelet 9.9 Volume Immature 0.500 H Granulocytes % Neutrophils % 80.9 H Lymphocytes % 9.2 L Monocytes % 8.6 Eosinophils % 0.7 Basophils % 0.1 Nucleated Red 0.2 H Blood Cells % Immature 0.040 H Granulocytes # Neutrophils # 6.9 Lymphocytes # 0.8 Monocytes # 0.7 Eosinophils # 0.1 Basophils # 0.0 Nucleated Red 0.0 Blood Cells # Sodium Level 142 Potassium Level 3.4 L Chloride Level 102 Carbon Dioxide 32 H Level Anion Gap 8 Blood Urea 27 H Nitrogen Creatinine 1.10 H Est Glomerular Filtrat Rate mL/min Glucose Level 130 # Calcium Level 8.3 L Phosphorus Level 2.7 Magnesium Level 2.2 Total Bilirubin 0.6 Direct Bilirubin 0.00 Indirect 0.6 Bilirubin Aspartate Amino 205 H Transf (AST/SGOT) Alanine 1073 H Aminotransferase (ALT/SGPT) Alkaline 134 H Phosphatase B-Type 84058 H Natriuretic Peptide Total Protein 6.0 L Albumin 2.8 L Globulin 3.20 Albumin/Globulin 0.87 Ratio Test 09/19/18 08:04 09/19/18 08:30 09/19/18 08:32 09/19/18 12:50 Blood Gas Blood arterial Specimen Source Arterial Blood 09/19/2018 8:06:2 Date Drawn 0 AM Arterial Blood pH 7.465 H (Temp corrected) Arterial Blood 39.4 pCO2 (Temp correct) Arterial Blood 70.9 L pO2 (Temp corrected) Arterial Blood 27.7 H HCO3 Arterial Blood 3.8 H Base Excess Arterial Blood 94.1 L Oxygen Saturation Aroldo Test ACCEPTAB Arterial Blood Right Radial Gas Puncture Site Arterial 0.7 Blood Carboxyhemo globin Arterial Blood 0.1 Methemoglobin Blood Gas A-a O2 277.4 H Differential Oxyhemoglobin 93.3 Percent Blood Gas 37.0 Temperature Blood Gas HFNC Modality FiO2 55.0 Blood Gas TM Notified Whom Blood Gas 09/19/2018 8:19:5 Notified Time 3 AM Bedside Glucose 143 150 140 Test 09/19/18 13:20 Sodium Level 142 Potassium Level 3.9 Chloride Level 101 Carbon Dioxide 34 H Level Anion Gap 7 Blood Urea 28 H Nitrogen Creatinine 1.02 H Est Glomerular Filtrat Rate mL/min Glucose Level 143 Calcium Level 8.4 Medications Medication Current Medications IV Flush (NS 3 ml) 3 ml PER PROTOCOL IV ; Start 09/14/18 at 19:30 Ondansetron HCl (Zofran Inj) 4 mg Q6H PRN IV NAUSEA/VOMITING; Start 09/14/18 at 19:30 Acetaminophen (Tylenol Tab) 650 mg Q6H PRN PO .PAIN 1-3 OR TEMP; Start 09/14/18 at 19:30 Acetaminophen/ Hydrocodone Bitart ([place] (5/325)) 1 tab Q6H PRN PO .MOD PAIN 4- 6 Last administered on 09/14/18at 22:07; Admin Dose 1 TAB; Start 09/14/18 at 19:30 Morphine Sulfate (morphine) 2 mg Q4H PRN IV .SEVERE PAIN 7-10 Last administered on 09/17/18at 13:38; Admin Dose 2 MG; Start 09/14/18 at 19:30 Docusate Sodium (Colace) 100 mg Q12H PRN PO .CONSTIPATION; Start 09/14/18 at 19:30 Zolpidem Tartrate (Ambien) 5 mg QHS PRN PO .INSOMNIA; Start 09/14/18 at 19:30 Aspirin (Aspirin) 81 mg DAILY PO Last administered on 09/19/18at 09:48; Admin Dose 81 MG; Start 09/15/18 at 09:00 Budesonide (Pulmicort (Neb)) 0.5 mg BID RESP THERAPY HHN Last administered on 09/19/18 08:28; Admin Dose 0.5 MG; Start 09/15/18 at 09:00 Albuterol/ Ipratropium (Duoneb) 3 ml Q2H RESP THERAPY PRN HHN shortness of breath Last administered on 09/16/18 11:25; Admin Dose 3 ML; Start 09/15/18 at 00:00 Albuterol/ Ipratropium (Duoneb) 3 ml Q6H RESP THERAPY HHN Last administered on 09/19/18 14:24; Admin Dose 3 ML; Start 09/15/18 at 02:00 Nitroglycerin (Nitroglycerin (Sl Tab) 0.4 Mg) 1 tab Q5M PRN SL ANGINA; Start 09/15/18 at 00:00 Piperacillin Sod/ Tazobactam Sod 50 ml @ 100 mls/hr Q6 IVPB Last administered on 09/19/18 12:51; Admin Dose 100 MLS/HR; Start 09/15/18 at 00:16 Norepinephrine 16 mg/Dextrose 250 ml @ 0.94 mls/hr TITRATE IV Last administered on 09/15/18 06:26; Admin Dose 0.94 MLS/HR; Start 09/15/18 at 05:30 Atorvastatin Calcium (Lipitor) 80 mg HS PO Last administered on 09/16/18 21:01; Admin Dose 80 MG; Start 09/15/18 at 21:00 Miscellaneous Information 1 ea NOTE XX ; Start 09/16/18 at 12:00 Glucose (Glutose) 15 gm Q15M PRN PO DECREASED GLUCOSE; Start 09/16/18 at 12:00 Glucose (Glutose) 22.5 gm Q15M PRN PO DECREASED GLUCOSE; Start 09/16/18 at 12:00 Dextrose (D50w Syringe) 25 ml Q15M PRN IV DECREASED GLUCOSE; Start 09/16/18 at 12:00 Dextrose (D50w Syringe) 50 ml Q15M PRN IV DECREASED GLUCOSE; Start 09/16/18 at 12:00 Glucagon (Glucagen) 1 mg Q15M PRN IM DECREASED GLUCOSE; Start 09/16/18 at 12:00 Glucose (Glutose) 15 gm Q15M PRN BUCCAL DECREASED GLUCOSE; Start 09/16/18 at 12:00 Enoxaparin Sodium (Lovenox) 60 mg Q12 SC Last administered on 09/19/18at 09:58; Admin Dose 60 MG; Start 09/17/18 at 09:00 Furosemide (Lasix) 40 mg BID DIURETICS IV Last administered on 09/19/18at 05:29; Admin Dose 40 MG; Start 09/18/18 at 07:30 Insulin Aspart (Novolog Insulin Pen) NOVOLOG *MILD* ALGORI... Q6 SC ; Start 09/18/18 at 12:00 Amiodarone HCl 900 mg/Dextrose 500 ml @ 0 mls/hr Q0M IV Last administered on 09/18/18at 10:47; Admin Dose 16.7 MLS/HR; Start 09/18/18 at 11:00 Diltiazem HCl 125 ml @ 5 mls/hr TITRATE IV ; Start 09/18/18 at 17:30 Potassium Phosphate 30 mm/ Sodium Chloride 260 ml @ 65 mls/hr ONCE ONCE IVPB Last administered on 09/19/18at 12:51; Admin Dose 65 MLS/HR; Start 09/19/18 at 12:00; Stop 09/19/18 at 15:59 PASTOR ROMERO MD Sep 19, 2018 14:46
--- NOTE | 2018-09-19 16:13 | PN ---
Date/Time of Note Date/Time of Note DATE: 09/19/18 TIME: 16:12 Assessment/Plan Lines/Catheters IV Catheter Type (from Nrs): Central Line Rebollar in Place (from Nrs): Yes Assessment/Plan Assessment/Plan 1. Three-vessel coronary artery disease: 2. Obesity. 3. Renal failure. 4. Sepsis. RECOMMENDATIONS: I had a long talk with the patient's family. At this time, I do not think she is a candidate to undergo surgery because of her risk being too high. The family also does not want to proceed with surgery. We will continue medical management. Subjective 24 Hr Interval Summary Constitutional: improved Pain Control: mild Exam/Review of Systems Vital Signs Vitals Vital Signs Date Temp Pulse Resp B/P (MAP) Pulse Ox O2 O2 Flow FiO2 Time Delivery Rate 09/19/18 79 20 143/61 97 High Flow 14:00 (88) 09/19/18 98.0 12:00 09/19/18 45 11:20 09/16/18 15.0 22:52 Intake and Output 09/18/18 09/18/18 09/19/18 1515:00 23:00 07:00 IntakeIntake Total 474.9 ml 279.6 ml 233.6 ml OutputOutput Total 1725 ml 900 ml 730 ml BalanceBalance -1250.1 ml -620.4 ml -496.4 ml Exam Eyes: nl conjunctiva, EOMI, nl lids, nl sclera ENMT: nl external ears & nose, nl lips & teeth, nl nasal mucosa & septum, mucosa pink and moist Neck: supple, non-tender Respiratory: clear to auscultation, normal air movement Cardiovascular: regular rate and rhythm, nl pulses Gastrointestinal: soft, nl liver, spleen, non-tender Results Result Diagram: 09/19/18 0450 09/19/18 1320 JUAN MOORE MD Sep 19, 2018 16:13
--- NOTE | 2018-09-19 16:47 | CONS ---
Consult Date/Type/Reason Admit Date/Time Sep 14, 2018 at 17:13 Initial Consult Date 09/15/18 Type of Consultation: cv Requesting Provider: HAYLEY ARREDONDO Date/Time of Note DATE: 09/19/18 TIME: 16:44 Subjective Interventional cardiology follow-up progress note Subjective: Case discussed with staff. D/W SON . D/W DR Carvajal Telemetry was reviewed. pt has converted back to sinus rhythm yesterday. No bleeding is reported no report of chest pain or pressure pt with less hypoxemia. off BIPAP Objective: General: Elderly female. Appears older than stated age with respiratory distress on BiPAP now HEENT: NC/AT. pupils are equal. round. NECK: NO JVD. no stridor. CV: Irregularly irregular . systolic murmur; no gallop or rubs. PULM: no wheezing + rhonchi. GI: SOFT, NT, ND, no rebound or guarding Extremity: trace B/L LE edema. no clubbing. neuro: Sleeping lethargic Psych: calm and pleasant rectal: deferred X-ray done 09/14/2018 shows:Cardiomegaly, with increased mild failure. CXR 09/16: Cardiomegaly with mild pulmonary edema and small pleural effusions.Calcified atherosclerosis of the thoracic aorta. Chest x-ray done 09/17/2018 shows: Stable cardiomegaly and vascular congestion with persistent left pleural effusion. Superimposed infection cannot be excluded. . EKG was personally reviewed which shows: Atrial fibrillation/junctional rhythm with left bundle branch block Echocardiogram was personally reviewed shows: Moderate left ventricular systolic dysfunction. Ejection fraction is visually estimated at 30-35 %. Tissue Doppler/Mitral Doppler indices are consistent with restrictive physiology with markedly elevated left atrial pressure (Stage III-IV diastolic dysfunction). Multiple segmental wall motion abnormalities. There is moderate enlargement of left atrium. There is mild enlargement of right atrium. Moderate mitral leaflet calcification. Moderate mitral annular calcification. Moderate to severe mitral valve regurgitation. Aortic valve not well visualized. Moderate to severe aortic stenosis however due to low cardiac output severity of aortic stenosis is underestimated. Aortic valve area 0.90 cm2. Mild to moderate aortic valve regurgitation. Normal appearance of the tricuspid valve. There is moderate tricuspid regurgitation. Dilated inferior vena cava with poor inspiratory collapse consistent with elevated right atrial pressures. Objective Vitals Vital Signs Date Temp Pulse Resp B/P (MAP) Pulse Ox O2 O2 Flow FiO2 Time Delivery Rate 09/19/18 80 16:00 09/19/18 20 96 45 14:24 09/19/18 143/61 High Flow 14:00 (88) 09/19/18 98.0 12:00 09/16/18 15.0 22:52 Intake and Output 09/18/18 09/18/18 09/19/18 1515:00 23:00 07:00 IntakeIntake Total 474.9 ml 279.6 ml 233.6 ml OutputOutput Total 1725 ml 900 ml 730 ml BalanceBalance -1250.1 ml -620.4 ml -496.4 ml Results/Medications Result Diagram: 09/19/18 0450 09/19/18 1320 Results 24 hrs Laboratory Tests Test 09/18/18 18:30 09/18/18 23:29 09/19/18 04:50 09/19/18 05:32 Bedside Glucose 104 112 127 White Blood Count 8.5 Red Blood Count 3.05 L Hemoglobin 9.6 L Hematocrit 29.8 L Mean Corpuscular 97.7 Volume Mean Corpuscular 31.5 Hemoglobin Mean Corpuscular 32.2 Hemoglobin Concen t Red Cell 13.0 Distribution Width Platelet Count 167 Mean Platelet 9.9 Volume Immature 0.500 H Granulocytes % Neutrophils % 80.9 H Lymphocytes % 9.2 L Monocytes % 8.6 Eosinophils % 0.7 Basophils % 0.1 Nucleated Red 0.2 H Blood Cells % Immature 0.040 H Granulocytes # Neutrophils # 6.9 Lymphocytes # 0.8 Monocytes # 0.7 Eosinophils # 0.1 Basophils # 0.0 Nucleated Red 0.0 Blood Cells # Sodium Level 142 Potassium Level 3.4 L Chloride Level 102 Carbon Dioxide 32 H Level Anion Gap 8 Blood Urea 27 H Nitrogen Creatinine 1.10 H Est Glomerular Filtrat Rate mL/min Glucose Level 130 # Calcium Level 8.3 L Phosphorus Level 2.7 Magnesium Level 2.2 Total Bilirubin 0.6 Direct Bilirubin 0.00 Indirect 0.6 Bilirubin Aspartate Amino 205 H Transf (AST/SGOT) Alanine 1073 H Aminotransferase (ALT/SGPT) Alkaline 134 H Phosphatase B-Type 47906 H Natriuretic Peptide Total Protein 6.0 L Albumin 2.8 L Globulin 3.20 Albumin/Globulin 0.87 Ratio Test 09/19/18 08:04 09/19/18 08:30 09/19/18 08:32 09/19/18 12:50 Blood Gas Blood arterial Specimen Source Arterial Blood 09/19/2018 8:06:2 Date Drawn 0 AM Arterial Blood pH 7.465 H (Temp corrected) Arterial Blood 39.4 pCO2 (Temp correct) Arterial Blood 70.9 L pO2 (Temp corrected) Arterial Blood 27.7 H HCO3 Arterial Blood 3.8 H Base Excess Arterial Blood 94.1 L Oxygen Saturation Aroldo Test ACCEPTAB Arterial Blood Right Radial Gas Puncture Site Arterial 0.7 Blood Carboxyhemo globin Arterial Blood 0.1 Methemoglobin Blood Gas A-a O2 277.4 H Differential Oxyhemoglobin 93.3 Percent Blood Gas 37.0 Temperature Blood Gas HFNC Modality FiO2 55.0 Blood Gas TM Notified Whom Blood Gas 09/19/2018 8:19:5 Notified Time 3 AM Bedside Glucose 143 150 140 Test 09/19/18 13:20 Sodium Level 142 Potassium Level 3.9 Chloride Level 101 Carbon Dioxide 34 H Level Anion Gap 7 Blood Urea 28 H Nitrogen Creatinine 1.02 H Est Glomerular Filtrat Rate mL/min Glucose Level 143 Calcium Level 8.4 Home Meds Reported Medications Rosiglitazone Maleate* (Avandia*) 8 Mg Tablet 10/25/10 Cyclobenzaprine Hcl* (Cyclobenzaprine Hcl*) 10 Mg Tablet 10/25/10 Diclofenac Sodium* (Voltaren*) 25 Mg Tablet. 10/25/10 Carvedilol* (Carvedilol*) 25 Mg Tablet 10/25/10 Valsartan* (Diovan*) 80 Mg Tablet 10/25/10 Simvastatin* (Zocor*) 20 Mg Tablet 10/25/10 Folic Acid* (Folic Acid*) 1 Mg Tablet 10/25/10 Metformin Hcl* (Metformin Hcl*) 1,000 Mg Tablet 10/25/10 Nifedipine (Nifedipine XL) 30 Mg/Bottle Tab.osm.24 10/25/10 Aspirin (Aspirin) 81 Mg Tablet 10/25/10 Nifedipine* (Nifedipine ER*) 60 Mg Tablet.sa 10/25/10 Medications Current Medications IV Flush (NS 3 ml) 3 ml PER PROTOCOL IV ; Start 09/14/18 at 19:30 Ondansetron HCl (Zofran Inj) 4 mg Q6H PRN IV NAUSEA/VOMITING; Start 09/14/18 at 19:30 Acetaminophen (Tylenol Tab) 650 mg Q6H PRN PO .PAIN 1-3 OR TEMP; Start 09/14/18 at 19:30 Acetaminophen/ Hydrocodone Bitart ([place] (5/325)) 1 tab Q6H PRN PO .MOD PAIN 4- 6 Last administered on 09/14/18 22:07; Admin Dose 1 TAB; Start 09/14/18 at 19:30 Morphine Sulfate (morphine) 2 mg Q4H PRN IV .SEVERE PAIN 7-10 Last administered on 09/17/18 13:38; Admin Dose 2 MG; Start 09/14/18 at 19:30 Docusate Sodium (Colace) 100 mg Q12H PRN PO .CONSTIPATION; Start 09/14/18 at 19:30 Zolpidem Tartrate (Ambien) 5 mg QHS PRN PO .INSOMNIA; Start 09/14/18 at 19:30 Aspirin (Aspirin) 81 mg DAILY PO Last administered on 09/19/18 09:48; Admin Dose 81 MG; Start 09/15/18 at 09:00 Budesonide (Pulmicort (Neb)) 0.5 mg BID RESP THERAPY HHN Last administered on 09/19/18 08:28; Admin Dose 0.5 MG; Start 09/15/18 at 09:00 Albuterol/ Ipratropium (Duoneb) 3 ml Q2H RESP THERAPY PRN HHN shortness of breath Last administered on 09/16/18 11:25; Admin Dose 3 ML; Start 09/15/18 at 00:00 Albuterol/ Ipratropium (Duoneb) 3 ml Q6H RESP THERAPY HHN Last administered on 09/19/18 14:24; Admin Dose 3 ML; Start 09/15/18 at 02:00 Nitroglycerin (Nitroglycerin (Sl Tab) 0.4 Mg) 1 tab Q5M PRN SL ANGINA; Start 09/15/18 at 00:00 Piperacillin Sod/ Tazobactam Sod 50 ml @ 100 mls/hr Q6 IVPB Last administered on 09/19/18 12:51; Admin Dose 100 MLS/HR; Start 09/15/18 at 00:16 Atorvastatin Calcium (Lipitor) 80 mg HS PO Last administered on 2/19/19at 21:01; Admin Dose 80 MG; Start 09/15/18 at 21:00 Miscellaneous Information 1 ea NOTE XX ; Start 09/16/18 at 12:00 Glucose (Glutose) 15 gm Q15M PRN PO DECREASED GLUCOSE; Start 09/16/18 at 12:00 Glucose (Glutose) 22.5 gm Q15M PRN PO DECREASED GLUCOSE; Start 09/16/18 at 12:00 Dextrose (D50w Syringe) 25 ml Q15M PRN IV DECREASED GLUCOSE; Start 09/16/18 at 12:00 Dextrose (D50w Syringe) 50 ml Q15M PRN IV DECREASED GLUCOSE; Start 09/16/18 at 12:00 Glucagon (Glucagen) 1 mg Q15M PRN IM DECREASED GLUCOSE; Start 09/16/18 at 12:00 Glucose (Glutose) 15 gm Q15M PRN BUCCAL DECREASED GLUCOSE; Start 09/16/18 at 12:00 Enoxaparin Sodium (Lovenox) 60 mg Q12 SC Last administered on 09/19/18at 09:58; Admin Dose 60 MG; Start 09/17/18 at 09:00 Furosemide (Lasix) 40 mg BID DIURETICS IV Last administered on 09/19/18at 05:29; Admin Dose 40 MG; Start 09/18/18 at 07:30 Insulin Aspart (Novolog Insulin Pen) NOVOLOG *MILD* [place]... Q6 SC ; Start 09/18/18 at 12:00 Amiodarone HCl 900 mg/Dextrose 500 ml @ 0 mls/hr Q0M IV Last administered on 09/18/18at 10:47; Admin Dose 16.7 MLS/HR; Start 09/18/18 at 11:00 Assessment/Plan Hospital Course (Demo Recall) 1. 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 Congestive heart failure appears acute secondary systolic heart failure 3. Sepsis and shock 4. Arrhythmias with proximal atrial fibrillation /junctional rhythm 5. Severe cardiomyopathy ischemic 6/ DM 7. HX HTN now hypotensive and shock 8. UTI 9. ? pneumonia 10. Acute renal failure 11. Anemia 12. Valvular heart disease 13. Transaminitis/liver failure: Probably related to hepatic congestion Recommendations: Aggressive medical therapy with aspirin and Lovenox. Antibiotic management as internal medicine. Blood cultures are negative so far Respiratory care will be continued. O2 and BiPAP as needed Diabetic control as per internal medicine. Insulin. CT surgery input is appreciated. We will try to aggressively diurese her as much as possible replace electrolyte as needed will add aldactone and lisinopril on lovenox now and to be switched to eliquis once stable will consider adding betablocker once more stable Thank you for his referral. We will continue to follow along with you LUIS A AGUILERA MD [facility] LUIS A AGUILERA MD Sep 19, 2018 16:47
[2018-09-19] MEDS: AMIODARONE 900 MG in DEXTROSE 5% 482 ML IV SCH (16:54)
[2018-09-19] MEDS: SPIRONOLACTONE 25 MG TAB PO SCH (17:30)
[2018-09-19] MEDS: ATORVASTATIN 80 MG TAB PO SCH (20:37)
[2018-09-19] MEDS: LISINOPRIL 5 MG TAB PO SCH (20:38)
[2018-09-19] MEDS: ENALAPRILAT 2.5 MG INJ IV PRN (23:51)
[2018-09-20] VITALS (15 sets, daily range): BP systolic 119–194; BP diastolic 64–82; PULSE 79–118; RESP 18–19
[2018-09-20] MEDS: INSULIN ASPART [NOVOLOG] 3 ML PEN SC SCH ×2 (00:23→05:41)
[2018-09-20] MEDS: ALBUTEROL/IPRATROPIUM (NEB) 3 ML AMP HHN SCH ×4 (01:35→19:55)
[2018-09-20] MEDS: PIPER-TAZO 2.25 GM/NS 50 ML IVPB SCH ×4 (05:34→23:12)
[2018-09-20] MEDS: FUROSEMIDE 40 MG INJ IV SCH ×2 (05:35→17:29)
[2018-09-20] MEDS ORDERED: POTASSIUM CHLORIDE 50 ML IVPB SCH (07:00)
--- NOTE | 2018-09-20 08:30 | CONS ---
Assessment/Plan Assessment/Plan Assessment/Plan (Daily) 1. 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 Congestive heart failure appears acute secondary systolic heart failure 3. Sepsis and shock 4. Arrhythmias with proximal atrial fibrillation /junctional rhythm 5. Severe cardiomyopathy ischemic 6/ DM 7. HX HTN now hypotensive and shock 8. UTI 9. ? pneumonia 10. Acute renal failure 11. Anemia 12. Valvular heart disease 13. Transaminitis/liver failure: Probably related to hepatic congestion 14. Hypokalemia Recommendations: Aggressive medical therapy with aspirin and Lovenox. Antibiotic management as internal medicine. Blood cultures are negative so far Respiratory care will be continued. O2 and BiPAP as needed Diabetic control as per internal medicine. Insulin. CT surgery input is appreciated. We will try to aggressively diurese her as much as possible replace electrolyte as needed - kcl this am on aldactone and lisinopril on lovenox now and to be switched to eliquis once stable - in the next 24-48 hours will consider adding betablocker once more stable will change iv to po amio as in nsr Consultation Date/Type/Reason Admit Date/Time Sep 14, 2018 at 17:13 Initial Consult Date 09/15/18 Type of Consult Cardiology Requesting Provider: HAYLEY ARREDONDO Date/Time of Note DATE: 09/20/18 TIME: 08:28 24 HR Interval Summary Free Text/Dictation The patient with no cahnge Exam/Review of Systems Vital Signs Vitals Vital Signs Date Temp Pulse Resp B/P (MAP) Pulse Ox O2 O2 Flow FiO2 Time Delivery Rate 09/20/18 84 08:01 09/20/18 97.8 18 171/79 96 07:19 (109) 09/20/18 40 05:05 09/19/18 High Flow 17:31 09/16/18 15.0 22:52 Intake and Output 09/19/18 09/19/18 09/20/18 1414:59 22:59 06:59 IntakeIntake Total 359.4 ml 110.0 ml 100 ml OutputOutput Total 1375 ml 250 ml 1750 ml BalanceBalance -1015.6 ml -140.0 ml -1650 ml Labs Result Diagram: 09/20/18 0504 09/20/18 0504 Results 24hrs Laboratory Tests Test 09/19/18 08:30 09/19/18 08:32 09/19/18 12:50 09/19/18 13:20 Bedside Glucose 143 150 140 Sodium Level 142 Potassium Level 3.9 Chloride Level 101 Carbon Dioxide Level 34 H Anion Gap 7 Blood Urea Nitrogen 28 H Creatinine 1.02 H Est Glomerular Filtrat Rate mL/min Glucose Level 143 Calcium Level 8.4 Test 09/19/18 17:58 09/19/18 23:49 09/20/18 05:04 09/20/18 05:32 Bedside Glucose 133 149 143 White Blood Count 8.9 Red Blood Count 3.30 L Hemoglobin 10.5 L Hematocrit 32.0 L Mean Corpuscular 97.0 Volume Mean Corpuscular 31.8 Hemoglobin Mean Corpuscular 32.8 Hemoglobin Concent Red Cell 13.0 Distribution Width Platelet Count 216 # Mean Platelet Volume 9.6 Immature 0.900 H Granulocytes % Neutrophils % 75.4 Lymphocytes % 11.1 L Monocytes % 10.3 Eosinophils % 2.0 Basophils % 0.3 Nucleated Red Blood 0.2 H Cells % Immature 0.080 H Granulocytes # Neutrophils # 6.7 Lymphocytes # 1.0 Monocytes # 0.9 Eosinophils # 0.2 Basophils # 0.0 Nucleated Red Blood 0.0 Cells # Sodium Level 141 Potassium Level 3.3 L Chloride Level 99 Carbon Dioxide Level 32 H Anion Gap 10 Blood Urea Nitrogen 26 H Creatinine 1.03 H Est Glomerular Filtrat Rate mL/min Glucose Level 155 Calcium Level 8.6 Magnesium Level 1.6 L Total Bilirubin 0.7 Direct Bilirubin 0.00 Indirect Bilirubin 0.7 Aspartate Amino 78 H Transf (AST/SGOT) Alanine 670 H Aminotransferase (AL T/SGPT) Alkaline Phosphatase 128 H Total Protein 6.8 Albumin 3.1 L Globulin 3.70 H Albumin/Globulin 0.83 Ratio Medications Medications Current Medications IV Flush (NS 3 ml) 3 ml PER PROTOCOL IV ; Start 09/14/18 at 19:30 Ondansetron HCl (Zofran Inj) 4 mg Q6H PRN IV NAUSEA/VOMITING; Start 09/14/18 at 19:30 Acetaminophen (Tylenol Tab) 650 mg Q6H PRN PO .PAIN 1-3 OR TEMP; Start 09/14/18 at 19:30 Acetaminophen/ Hydrocodone Bitart ([place] (5/325)) 1 tab Q6H PRN PO .MOD PAIN 4- 6 Last administered on 09/14/18 22:07; Admin Dose 1 TAB; Start 09/14/18 at 19:30 Morphine Sulfate (morphine) 2 mg Q4H PRN IV .SEVERE PAIN 7-10 Last administered on 09/17/18 13:38; Admin Dose 2 MG; Start 09/14/18 at 19:30 Docusate Sodium (Colace) 100 mg Q12H PRN PO .CONSTIPATION; Start 09/14/18 at 19:30 Zolpidem Tartrate (Ambien) 5 mg QHS PRN PO .INSOMNIA; Start 09/14/18 at 19:30 Aspirin (Aspirin) 81 mg DAILY PO Last administered on 09/19/18 09:48; Admin Dose 81 MG; Start 09/15/18 at 09:00 Budesonide (Pulmicort (Neb)) 0.5 mg BID RESP THERAPY HHN Last administered on 09/19/18 19:57; Admin Dose 0.5 MG; Start 09/15/18 at 09:00 Albuterol/ Ipratropium (Duoneb) 3 ml Q2H RESP THERAPY PRN HHN shortness of breath Last administered on 09/16/18 11:25; Admin Dose 3 ML; Start 09/15/18 at 00:00 Albuterol/ Ipratropium (Duoneb) 3 ml Q6H RESP THERAPY HHN Last administered on 09/20/18 01:35; Admin Dose 3 ML; Start 09/15/18 at 02:00 Nitroglycerin (Nitroglycerin (Sl Tab) 0.4 Mg) 1 tab Q5M PRN SL ANGINA; Start 09/15/18 at 00:00 Piperacillin Sod/ Tazobactam Sod 50 ml @ 100 mls/hr Q6 IVPB Last administered on 09/20/18 05:34; Admin Dose 100 MLS/HR; Start 09/15/18 at 00:16 Atorvastatin Calcium (Lipitor) 80 mg HS PO Last administered on 09/16/18 21:01; Admin Dose 80 MG; Start 09/15/18 at 21:00 Miscellaneous Information 1 ea NOTE XX ; Start 09/16/18 at 12:00 Glucose (Glutose) 15 gm Q15M PRN PO DECREASED GLUCOSE; Start 09/16/18 at 12:00 Glucose (Glutose) 22.5 gm Q15M PRN PO DECREASED GLUCOSE; Start 09/16/18 at 12:00 Dextrose (D50w Syringe) 25 ml Q15M PRN IV DECREASED GLUCOSE; Start 09/16/18 at 12:00 Dextrose (D50w Syringe) 50 ml Q15M PRN IV DECREASED GLUCOSE; Start 09/16/18 at 12:00 Glucagon (Glucagen) 1 mg Q15M PRN IM DECREASED GLUCOSE; Start 09/16/18 at 12:00 Glucose (Glutose) 15 gm Q15M PRN BUCCAL DECREASED GLUCOSE; Start 09/16/18 at 12:00 Enoxaparin Sodium (Lovenox) 60 mg Q12 SC Last administered on 09/19/18at 20:37; Admin Dose 60 MG; Start 09/17/18 at 09:00 Furosemide (Lasix) 40 mg BID DIURETICS IV Last administered on 09/20/18at 05:35; Admin Dose 40 MG; Start 09/18/18 at 07:30 Insulin Aspart (Novolog Insulin Pen) NOVOLOG *MILD* ALGORI... Q6 SC Last adm inistered on 09/20/18at 05:41; Admin Dose 1 UNIT; Start 09/18/18 at 12:00 Amiodarone HCl 900 mg/Dextrose 500 ml @ 0 mls/hr Q0M IV Last administered on 09/19/18at 16:54; Admin Dose 16.7 MLS/HR; Start 09/18/18 at 11:00 Lisinopril (Zestril) 5 mg BID PO ; Start 09/19/18 at 21:00 Spironolactone (Aldactone) 25 mg DAILY PO ; Start 09/19/18 at 17:30 Enalaprilat (Vasotec Iv) 0.625 mg Q6H PRN IV ELEVATED SYSTOLIC BP Last administered on 09/19/18at 23:51; Admin Dose 0.625 MG; Start 09/20/18 at 00:00 Potassium Chloride 100 ml @ 50 mls/hr Q2H IVPB ; Start 09/20/18 at 08:00; Stop 09/20/18 at 11:59 JAMES RAYMUNDO MD Sep 20, 2018 08:30
[2018-09-20] MEDS: BUDESONIDE (NEB) 0.5MG/2ML AMP HHN SCH ×2 (08:55→19:55)
[2018-09-20] MEDS: ASPIRIN 81 MG TAB PO SCH ×2 (09:00→10:40)
[2018-09-20] MEDS: AMIODARONE 200 MG TAB PO SCH ×3 (09:00→20:23)
[2018-09-20] MEDS: LISINOPRIL 5 MG TAB PO SCH ×3 (09:00→20:23)
[2018-09-20] MEDS: SPIRONOLACTONE 25 MG TAB PO SCH ×2 (09:00→10:40)
[2018-09-20] MEDS: POTASSIUM CHLORIDE 100 ML IVPB SCH ×2 (09:00→10:41)
[2018-09-20] MEDS: ENALAPRILAT 2.5 MG INJ IV PRN (09:03)
[2018-09-20] MEDS: ENOXAPARIN 60 MG/0.6 ML SYG SC SCH ×2 (09:09→20:37)
--- NOTE | 2018-09-20 09:40 | PN ---
Date/Time of Note Date/Time of Note DATE: 09/20/18 TIME: 09:40 Assessment/Plan VTE Prophylaxis Risk score (from Nsg)>0 risk: 8 SCD applied (from Nsg): Yes Pharmacological prophylaxis: LMWH Lines/Catheters IV Catheter Type (from Nrsg): Central Line Central line still needed: Yes Urinary Cath still in place: Yes Reason Cath still needed: urinary retention Assessment/Plan Assessment/Plan 1. Acute hypoxic respiratory failure- improving - On high flow, 20L on 40% and will continue titrating down as tolerated - Pulm on board and appreciate recommendations - Cardiology on board and continuing aggressive diuresis 2. A. fib with RVR- resolved - Patient back in sinus rhythm and regular rate 3. Sepsis secondary to UTI and/or pneumonia- stable - Continue IV antibiotics and final cultures noted - On Zosyn day 5. Remains afebrile and WBC nl 4. NSTEMI - s/p LHC on 09/16 that showed triple vessel disease - CT surgery input appreciated and not recommending surgical intervention due to high risk - will continue aggressive medical management per Cardiology recommendations 5. Diabetes - A1c noted - ISS and accuchecks 6. HTN - BP stable 7. Normocytic anemia likely secondary chronic disease - Monitor - no need for transfusion at this time 8. Disposition -Continue diuresing and weaning down high flow requirement. - Advance to pureed diet - Once tolerating NC and more euvolemic, will d/c home with HH. Discussed with family transitioning to palliative care and not interested at this time. Result Diagram: 09/20/18 0504 09/20/18 0504 Results 24hrs Laboratory Tests Test 09/19/18 12:50 09/19/18 13:20 09/19/18 17:58 09/19/18 23:49 Bedside Glucose 140 133 149 Sodium Level 142 Potassium Level 3.9 Chloride Level 101 Carbon Dioxide Level 34 H Anion Gap 7 Blood Urea Nitrogen 28 H Creatinine 1.02 H Est Glomerular Filtrat Rate mL/min Glucose Level 143 Calcium Level 8.4 Test 09/20/18 05:04 09/20/18 05:32 White Blood Count 8.9 Red Blood Count 3.30 L Hemoglobin 10.5 L Hematocrit 32.0 L Mean Corpuscular 97.0 Volume Mean Corpuscular 31.8 Hemoglobin Mean Corpuscular 32.8 Hemoglobin Concent Red Cell 13.0 Distribution Width Platelet Count 216 # Mean Platelet Volume 9.6 Immature 0.900 H Granulocytes % Neutrophils % 75.4 Lymphocytes % 11.1 L Monocytes % 10.3 Eosinophils % 2.0 Basophils % 0.3 Nucleated Red Blood 0.2 H Cells % Immature 0.080 H Granulocytes # Neutrophils # 6.7 Lymphocytes # 1.0 Monocytes # 0.9 Eosinophils # 0.2 Basophils # 0.0 Nucleated Red Blood 0.0 Cells # Sodium Level 141 Potassium Level 3.3 L Chloride Level 99 Carbon Dioxide Level 32 H Anion Gap 10 Blood Urea Nitrogen 26 H Creatinine 1.03 H Est Glomerular Filtrat Rate mL/min Glucose Level 155 Calcium Level 8.6 Magnesium Level 1.6 L Total Bilirubin 0.7 Direct Bilirubin 0.00 Indirect Bilirubin 0.7 Aspartate Amino 78 H Transf (AST/SGOT) Alanine 670 H Aminotransferase (AL T/SGPT) Alkaline Phosphatase 128 H Total Protein 6.8 Albumin 3.1 L Globulin 3.70 H Albumin/Globulin 0.83 Ratio Bedside Glucose 143 Subjective 24 Hr Interval Summary Free Text/Dictation Patient more comfortable this am and denies any acute issues. Weaning down high flow requirement. Son at bedside. Exam/Review of Systems Exam Vitals Vital Signs Date Temp Pulse Resp B/P (MAP) Pulse Ox O2 O2 Flow FiO2 Time Delivery Rate 09/20/18 83 194/82 09:03 (119) 09/20/18 20 96 40 08:48 09/20/18 97.8 07:19 09/19/18 High Flow 17:31 09/16/18 15.0 22:52 Intake and Output 09/19/18 09/19/18 09/20/18 1515:00 23:00 07:00 IntakeIntake Total 424.4 ml 28.3 ml 100 ml OutputOutput Total 1175 ml 250 ml 1750 ml BalanceBalance -750.6 ml -221.7 ml -1650 ml Exam General: Patient is a pleasant female, on high flow, no acute distress Neck: Supple Chest: Nontender Lungs: Crackles at bases, no wheezing appreciated Heart: Normal S1-S2, Regular rate and rhythm, Systolic murmur Abdomen: Soft , nontender, nondistended , bowel sounds are present. No guarding no rebound tenderness Skin: no acute rashes appreciated Results Results 24hrs Laboratory Tests Test 09/19/18 12:50 09/19/18 13:20 09/19/18 17:58 09/19/18 23:49 Bedside Glucose 140 133 149 Sodium Level 142 Potassium Level 3.9 Chloride Level 101 Carbon Dioxide Level 34 H Anion Gap 7 Blood Urea Nitrogen 28 H Creatinine 1.02 H Est Glomerular Filtrat Rate mL/min Glucose Level 143 Calcium Level 8.4 Test 09/20/18 05:04 09/20/18 05:32 White Blood Count 8.9 Red Blood Count 3.30 L Hemoglobin 10.5 L Hematocrit 32.0 L Mean Corpuscular 97.0 Volume Mean Corpuscular 31.8 Hemoglobin Mean Corpuscular 32.8 Hemoglobin Concent Red Cell 13.0 Distribution Width Platelet Count 216 # Mean Platelet Volume 9.6 Immature 0.900 H Granulocytes % Neutrophils % 75.4 Lymphocytes % 11.1 L Monocytes % 10.3 Eosinophils % 2.0 Basophils % 0.3 Nucleated Red Blood 0.2 H Cells % Immature 0.080 H Granulocytes # Neutrophils # 6.7 Lymphocytes # 1.0 Monocytes # 0.9 Eosinophils # 0.2 Basophils # 0.0 Nucleated Red Blood 0.0 Cells # Sodium Level 141 Potassium Level 3.3 L Chloride Level 99 Carbon Dioxide Level 32 H Anion Gap 10 Blood Urea Nitrogen 26 H Creatinine 1.03 H Est Glomerular Filtrat Rate mL/min Glucose Level 155 Calcium Level 8.6 Magnesium Level 1.6 L Total Bilirubin 0.7 Direct Bilirubin 0.00 Indirect Bilirubin 0.7 Aspartate Amino 78 H Transf (AST/SGOT) Alanine 670 H Aminotransferase (AL T/SGPT) Alkaline Phosphatase 128 H Total Protein 6.8 Albumin 3.1 L Globulin 3.70 H Albumin/Globulin 0.83 Ratio Bedside Glucose 143 Medications Medication Current Medications IV Flush (NS 3 ml) 3 ml PER PROTOCOL IV ; Start 09/14/18 at 19:30 Ondansetron HCl (Zofran Inj) 4 mg Q6H PRN IV NAUSEA/VOMITING; Start 09/14/18 at 19:30 Acetaminophen (Tylenol Tab) 650 mg Q6H PRN PO .PAIN 1-3 OR TEMP; Start 09/14/18 at 19:30 Acetaminophen/ Hydrocodone Bitart ([place] (5/325)) 1 tab Q6H PRN PO .MOD PAIN 4- 6 Last administered on 09/14/18at 22:07; Admin Dose 1 TAB; Start 09/14/18 at 1 9:30 Morphine Sulfate (morphine) 2 mg Q4H PRN IV .SEVERE PAIN 7-10 Last administered on 09/17/18at 13:38; Admin Dose 2 MG; Start 09/14/18 at 19:30 Docusate Sodium (Colace) 100 mg Q12H PRN PO .CONSTIPATION; Start 09/14/18 at 19:30 Zolpidem Tartrate (Ambien) 5 mg QHS PRN PO .INSOMNIA; Start 09/14/18 at 19:30 Aspirin (Aspirin) 81 mg DAILY PO Last administered on 09/19/18at 09:48; Admin Dose 81 MG; Start 09/15/18 at 09:00 Budesonide (Pulmicort (Neb)) 0.5 mg BID RESP THERAPY HHN Last administered on 09/20/18at 08:55; Admin Dose 0.5 MG; Start 09/15/18 at 09:00 Albuterol/ Ipratropium (Duoneb) 3 ml Q2H RESP THERAPY PRN HHN shortness of breath Last administered on 09/16/18at 11:25; Admin Dose 3 ML; Start 09/15/18 at 00:00 Albuterol/ Ipratropium (Duoneb) 3 ml Q6H RESP THERAPY HHN Last administered on 09/20/18at 08:51; Admin Dose 3 ML; Start 09/15/18 at 02:00 Nitroglycerin (Nitroglycerin (Sl Tab) 0.4 Mg) 1 tab Q5M PRN SL ANGINA; Start 09/15/18 at 00:00 Piperacillin Sod/ Tazobactam Sod 50 ml @ 100 mls/hr Q6 IVPB Last administered on 09/20/18at 05:34; Admin Dose 100 MLS/HR; Start 09/15/18 at 00:16 Atorvastatin Calcium (Lipitor) 80 mg HS PO Last administered on 09/16/18at 21:01; Admin Dose 80 MG; Start 09/15/18 at 21:00 Miscellaneous Information 1 ea NOTE XX ; Start 09/16/18 at 12:00 Glucose (Glutose) 15 gm Q15M PRN PO DECREASED GLUCOSE; Start 09/16/18 at 12:00 Glucose (Glutose) 22.5 gm Q15M PRN PO DECREASED GLUCOSE; Start 09/16/18 at 12:00 Dextrose (D50w Syringe) 25 ml Q15M PRN IV DECREASED GLUCOSE; Start 09/16/18 at 12:00 Dextrose (D50w Syringe) 50 ml Q15M PRN IV DECREASED GLUCOSE; Start 09/16/18 at 12:00 Glucagon (Glucagen) 1 mg Q15M PRN IM DECREASED GLUCOSE; Start 09/16/18 at 12:00 Glucose (Glutose) 15 gm Q15M PRN BUCCAL DECREASED GLUCOSE; Start 09/16/18 at 12:00 Enoxaparin Sodium (Lovenox) 60 mg Q12 SC Last administered on 09/20/18 09:09; Admin Dose 60 MG; Start 09/17/18 at 09:00 Furosemide (Lasix) 40 mg BID DIURETICS IV Last administered on 09/20/18at 05:35; Admin Dose 40 MG; Start 09/18/18 at 07:30 Insulin Aspart (Novolog Insulin Pen) NOVOLOG *MILD* ALGORI... Q6 SC Last administered on 09/20/18at 05:41; Admin Dose 1 UNIT; Start 09/18/18 at 12:00 Lisinopril (Zestril) 5 mg BID PO ; Start 09/19/18 at 21:00 Spironolactone (Aldactone) 25 mg DAILY PO ; Start 09/19/18 at 17:30 Enalaprilat (Vasotec Iv) 0.625 mg Q6H PRN IV ELEVATED SYSTOLIC BP Last administered on 09/20/18at 09:03; Admin Dose 0.625 MG; Start 09/20/18 at 00:00 Potassium Chloride 100 ml @ 50 mls/hr Q2H IVPB Last administered on 09/20/18at 09:00; Admin Dose 50 MLS/HR; Start 09/20/18 at 08:00; Stop 09/20/18 at 11:59 Amiodarone HCl (Cordarone) 400 mg BID PO ; Start 09/20/18 at 09:00 PASTOR ROMERO MD Sep 20, 2018 09:40
--- NOTE | 2018-09-20 11:44 | CONS ---
Consult Date/Type/Reason Admit Date/Time Sep 14, 2018 at 17:13 Initial Consult Date 09/15/18 Type of Consult Pulmonary Requesting Provider: HAYLEY ARREDONDO Date/Time of Note DATE: 09/20/18 TIME: 11:42 Subjective Patient remained stable. Continues to improve now on 40% high flow Objective Vital Signs Date Temp Pulse Resp B/P (MAP) Pulse Ox O2 O2 Flow FiO2 Time Delivery Rate 09/20/18 98.2 83 19 119/68 97 11:16 (85) 09/20/18 40 11:15 09/19/18 High Flow 17:31 09/16/18 15.0 22:52 Intake and Output 09/19/18 09/19/18 09/20/18 1515:00 23:00 07:00 IntakeIntake Total 424.4 ml 28.3 ml 100 ml OutputOutput Total 1175 ml 250 ml 1750 ml BalanceBalance -750.6 ml -221.7 ml -1650 ml Exam Elderly lady comfortable at rest GENERAL: VITAL SIGNS: per chart NECK: Supple. No JVD or lymphadenopathy. CARDIAC EXAM: S1, S2. No added sounds or murmurs. CHEST: Diminished bilaterally ABDOMEN: Soft, nontender. No guarding or rebound. EXTREMITIES: No cyanosis, clubbing or edema. NEUROLOGIC: Generalized weakness. No focal deficits. Vent Setting Fraction of Inspired Oxygen pe: 40 Results/Medications Result Diagram: 09/20/18 0504 09/20/18 0504 Results 24 hrs Laboratory Tests Test 09/19/18 12:50 09/19/18 13:20 09/19/18 17:58 09/19/18 23:49 Bedside Glucose 140 133 149 Sodium Level 142 Potassium Level 3.9 Chloride Level 101 Carbon Dioxide Level 34 H Anion Gap 7 Blood Urea Nitrogen 28 H Creatinine 1.02 H Est Glomerular Filtrat Rate mL/min Glucose Level 143 Calcium Level 8.4 Test 09/20/18 05:04 09/20/18 05:32 White Blood Count 8.9 Red Blood Count 3.30 L Hemoglobin 10.5 L Hematocrit 32.0 L Mean Corpuscular 97.0 Volume Mean Corpuscular 31.8 Hemoglobin Mean Corpuscular 32.8 Hemoglobin Concent Red Cell 13.0 Distribution Width Platelet Count 216 # Mean Platelet Volume 9.6 Immature 0.900 H Granulocytes % Neutrophils % 75.4 Lymphocytes % 11.1 L Monocytes % 10.3 Eosinophils % 2.0 Basophils % 0.3 Nucleated Red Blood 0.2 H Cells % Immature 0.080 H Granulocytes # Neutrophils # 6.7 Lymphocytes # 1.0 Monocytes # 0.9 Eosinophils # 0.2 Basophils # 0.0 Nucleated Red Blood 0.0 Cells # Sodium Level 141 Potassium Level 3.3 L Chloride Level 99 Carbon Dioxide Level 32 H Anion Gap 10 Blood Urea Nitrogen 26 H Creatinine 1.03 H Est Glomerular Filtrat Rate mL/min Glucose Level 155 Calcium Level 8.6 Magnesium Level 1.6 L Total Bilirubin 0.7 Direct Bilirubin 0.00 Indirect Bilirubin 0.7 Aspartate Amino 78 H Transf (AST/SGOT) Alanine 670 H Aminotransferase (AL T/SGPT) Alkaline Phosphatase 128 H Total Protein 6.8 Albumin 3.1 L Globulin 3.70 H Albumin/Globulin 0.83 Ratio Bedside Glucose 143 Medications Current Medications IV Flush (NS 3 ml) 3 ml PER PROTOCOL IV ; Start 09/14/18 at 19:30 Ondansetron HCl (Zofran Inj) 4 mg Q6H PRN IV NAUSEA/VOMITING; Start 09/14/18 at 19:30 Acetaminophen (Tylenol Tab) 650 mg Q6H PRN PO .PAIN 1-3 OR TEMP; Start 09/14/18 at 19:30 Acetaminophen/ Hydrocodone Bitart ([place] (5/325)) 1 tab Q6H PRN PO .MOD PAIN 4- 6 Last administered on 09/14/18at 22:07; Admin Dose 1 TAB; Start 09/14/18 at 19:30 Morphine Sulfate (morphine) 2 mg Q4H PRN IV .SEVERE PAIN 7-10 Last administered on 09/17/18at 13:38; Admin Dose 2 MG; Start 09/14/18 at 19:30 Docusate Sodium (Colace) 100 mg Q12H PRN PO .CONSTIPATION; Start 09/14/18 at 19:30 Zolpidem Tartrate (Ambien) 5 mg QHS PRN PO .INSOMNIA; Start 09/14/18 at 19:30 Aspirin (Aspirin) 81 mg DAILY PO Last administered on 09/20/18at 10:40; Admin Dose 81 MG; Start 09/15/18 at 09:00 Budesonide (Pulmicort (Neb)) 0.5 mg BID RESP THERAPY HHN Last administered on 09/20/18 08:55; Admin Dose 0.5 MG; Start 09/15/18 at 09:00 Albuterol/ Ipratropium (Duoneb) 3 ml Q2H RESP THERAPY PRN HHN shortness of breath Last administered on 09/16/18 11:25; Admin Dose 3 ML; Start 09/15/18 at 00:00 Albuterol/ Ipratropium (Duoneb) 3 ml Q6H RESP THERAPY HHN Last administered on 09/20/18 08:51; Admin Dose 3 ML; Start 09/15/18 at 02:00 Nitroglycerin (Nitroglycerin (Sl Tab) 0.4 Mg) 1 tab Q5M PRN SL ANGINA; Start 09/15/18 at 00:00 Piperacillin Sod/ Tazobactam Sod 50 ml @ 100 mls/hr Q6 IVPB Last administered on 09/20/18 05:34; Admin Dose 100 MLS/HR; Start 09/15/18 at 00:16 Atorvastatin Calcium (Lipitor) 80 mg HS PO Last administered on 09/16/18 21:01 ; Admin Dose 80 MG; Start 09/15/18 at 21:00 Miscellaneous Information 1 ea NOTE XX ; Start 09/16/18 at 12:00 Glucose (Glutose) 15 gm Q15M PRN PO DECREASED GLUCOSE; Start 09/16/18 at 12:00 Glucose (Glutose) 22.5 gm Q15M PRN PO DECREASED GLUCOSE; Start 09/16/18 at 12:00 Dextrose (D50w Syringe) 25 ml Q15M PRN IV DECREASED GLUCOSE; Start 09/16/18 at 12:00 Dextrose (D50w Syringe) 50 ml Q15M PRN IV DECREASED GLUCOSE; Start 09/16/18 at 12:00 Glucagon (Glucagen) 1 mg Q15M PRN IM DECREASED GLUCOSE; Start 09/16/18 at 12:00 Glucose (Glutose) 15 gm Q15M PRN BUCCAL DECREASED GLUCOSE; Start 09/16/18 at 12:00 Enoxaparin Sodium (Lovenox) 60 mg Q12 SC Last administered on 09/20/18 09:09; Admin Dose 60 MG; Start 09/17/18 at 09:00 Furosemide (Lasix) 40 mg BID DIURETICS IV Last administered on 09/20/18 05:35; Admin Dose 40 MG; Start 09/18/18 at 07:30 Insulin Aspart (Novolog Insulin Pen) NOVOLOG *MILD* ALGORI... Q6 SC Last administered on 09/20/18 05:41; Admin Dose 1 UNIT; Start 09/18/18 at 12:00 Lisinopril (Zestril) 5 mg BID PO Last administered on 09/20/18 10:40; Admin Dose 5 MG; Start 09/19/18 at 21:00 Spironolactone (Aldactone) 25 mg DAILY PO Last administered on 09/20/18 10:40; Admin Dose 25 MG; Start 09/19/18 at 17:30 Enalaprilat (Vasotec Iv) 0.625 mg Q6H PRN IV ELEVATED SYSTOLIC BP Last administered on 09/20/18 09:03; Admin Dose 0.625 MG; Start 09/20/18 at 00:00 Potassium Chloride 100 ml @ 50 mls/hr Q2H IVPB Last administered on 09/20/18 10:41; Admin Dose 50 MLS/HR; Start 09/20/18 at 08:00; Stop 09/20/18 at 11:59 Amiodarone HCl (Cordarone) 400 mg BID PO Last administered on 09/20/18 10:40; Admin Dose 400 MG; Start 09/20/18 at 09:00 Assessment/Plan Hospital Course (Demo Recall) IMPRESSION 1. Status post septic shock, likely secondary to urinary tract infection. 2. Possible community-acquired pneumonia. 3. Pulmonary edema with acute hypoxemic respiratory failure. Progressive hypoxemia secondary to pulmonary edema, slowly improving. 4. Renal insufficiency, likely acute tubular necrosis injury. 5. Non-ST elevation NH, ischemic cardia myopathy with severe aortic stenosis status post cardiac cath PLAN: 1. Continue broad-spectrum antibiotics. 2. Decrease IV fluids IV diuresis 3. Cardiac recs 4. Continue high flow 02. 5. DVT and GI prophylaxis. discussed with family at bedside ALEN FLORES MD, [facility] Sep 20, 2018 11:44
--- NOTE | 2018-09-20 15:13 | CONS ---
Assessment/Plan Assessment/Plan Assessment/Plan (Daily) 1. acute Renal failure 2/2 Hemodynamics from CHF 2. acute CHF, possibly systolic with low EF 3. atrial fibrillation with RVR 5. septich shock possibly due to UTI 6. UTI with Urine cx growing Group B streptoccoci 7. Acute NSTEMI s/p C on 09/15/18 that showed multivessel obstructive CAD 8. h/o HTN 9. H/o DM II 10. H/o HL 11. metabolic acidosis due to Septic shock + renal failure 12. atrial fibrillation with RVR Plan: More alert today, on High flow oxygen, Code status changed to DNR - BUN/Cr 26/1.3, K 3.3, K replacement ordered by PMD, Mag 1.6- replace - fu AM mAG S/p [facility] that showed multivessel obstructive CAD- s/p CT surgery evaluation, too high risk for surgery , family wants to wait, medical management for now on amiodarone gtt for rate control for atrial fibrillation IV abx zosyn for sepsis, renally dose all abx and monitor electrolytes will follow up Melecio Sparks Plan Consultation Date/Type/Reason Admit Date/Time Sep 14, 2018 at 17:13 Initial Consult Date 09/15/18 Requesting Provider: HAYLEY ARREDONDO Date/Time of Note DATE: 09/20/18 TIME: 15:09 24 HR Interval Summary Free Text/Dictation pt is on 3L oxygen via NC, more alert, BUN/Cr slightly better, Bp stable - started on puree diet - Mag, K low - UO 3.3L/24 hrs -dw staff Detailed Summary Eyes: no complaints ENT: no complaints Respiratory: no complaints Cardiovascular: no complaints Gastrointestinal: no complaints Genitourinary: no complaints Musculoskeletal: no complaints Skin: no complaints Exam/Review of Systems Exam Vitals Vital Signs Date Temp Pulse Resp B/P (MAP) Pulse Ox O2 O2 Flow FiO2 Time Delivery Rate 09/20/18 84 20 98 Nasal 3.0 13:56 Cannula 09/20/18 98.2 119/68 11:16 (85) 09/20/18 40 11:15 Intake and Output 09/19/18 09/19/18 09/20/18 1515:00 23:00 07:00 IntakeIntake Total 424.4 ml 28.3 ml 100 ml OutputOutput Total 1175 ml 250 ml 1750 ml BalanceBalance -750.6 ml -221.7 ml -1650 ml Constitutional: alert, well developed Psych: nl mood/affect Head: atraumatic Eyes: EOMI, nl lids, nl sclera ENMT: nl external ears & nose Neck: non-tender Respiratory: clear to auscultation Cardiovascular: nl pulses, other Gastrointestinal: soft, non-tender Musculoskeletal: nl extremities to inspection Extremities: normal pulses Neurological: nl speech Skin: nl turgor Lymph: nontender Results Result Diagram: 09/20/18 0504 09/20/18 0504 Results 24hrs Laboratory Tests Test 09/19/18 17:58 09/19/18 23:49 09/20/18 05:04 09/20/18 05:32 Bedside Glucose 133 149 143 White Blood Count 8.9 Red Blood Count 3.30 L Hemoglobin 10.5 L Hematocrit 32.0 L Mean Corpuscular 97.0 Volume Mean Corpuscular 31.8 Hemoglobin Mean Corpuscular 32.8 Hemoglobin Concent Red Cell 13.0 Distribution Width Platelet Count 216 # Mean Platelet Volume 9.6 Immature 0.900 H Granulocytes % Neutrophils % 75.4 Lymphocytes % 11.1 L Monocytes % 10.3 Eosinophils % 2.0 Basophils % 0.3 Nucleated Red Blood 0.2 H Cells % Immature 0.080 H Granulocytes # Neutrophils # 6.7 Lymphocytes # 1.0 Monocytes # 0.9 Eosinophils # 0.2 Basophils # 0.0 Nucleated Red Blood 0.0 Cells # Sodium Level 141 Potassium Level 3.3 L Chloride Level 99 Carbon Dioxide Level 32 H Anion Gap 10 Blood Urea Nitrogen 26 H Creatinine 1.03 H Est Glomerular Filtrat Rate mL/min Glucose Level 155 Calcium Level 8.6 Magnesium Level 1.6 L Total Bilirubin 0.7 Direct Bilirubin 0.00 Indirect Bilirubin 0.7 Aspartate Amino 78 H Transf (AST/SGOT) Alanine 670 H Aminotransferase (AL T/SGPT) Alkaline Phosphatase 128 H B-Type Natriuretic 47566 H Peptide Total Protein 6.8 Albumin 3.1 L Globulin 3.70 H Albumin/Globulin 0.83 Ratio Test 09/20/18 12:30 Bedside Glucose 200 Medications Medication Current Medications IV Flush (NS 3 ml) 3 ml PER PROTOCOL IV ; Start 09/14/18 at 19:30 Ondansetron HCl (Zofran Inj) 4 mg Q6H PRN IV NAUSEA/VOMITING; Start 09/14/18 at 19:30 Acetaminophen (Tylenol Tab) 650 mg Q6H PRN PO .PAIN 1-3 OR TEMP; Start 09/14/18 at 19:30 Acetaminophen/ Hydrocodone Bitart ([place] (5/325)) 1 tab Q6H PRN PO .MOD PAIN 4- 6 Last administered on 09/14/18 22:07; Admin Dose 1 TAB; Start 09/14/18 at 19:30 Morphine Sulfate (morphine) 2 mg Q4H PRN IV .SEVERE PAIN 7-10 Last administered on 09/17/18 13:38; Admin Dose 2 MG; Start 09/14/18 at 19:30 Docusate Sodium (Colace) 100 mg Q12H PRN PO .CONSTIPATION; Start 09/14/18 at 19:30 Zolpidem Tartrate (Ambien) 5 mg QHS PRN PO .INSOMNIA; Start 09/14/18 at 19:30 Aspirin (Aspirin) 81 mg DAILY PO Last administered on 09/20/18 10:40; Admin Dose 81 MG; Start 09/15/18 at 09:00 Budesonide (Pulmicort (Neb)) 0.5 mg BID RESP THERAPY HHN Last administered on 09/20/18 08:55; Admin Dose 0.5 MG; Start 09/15/18 at 09:00 Albuterol/ Ipratropium (Duoneb) 3 ml Q2H RESP THERAPY PRN HHN shortness of breath Last administered on 09/16/18 11:25; Admin Dose 3 ML; Start 09/15/18 at 00:00 Albuterol/ Ipratropium (Duoneb) 3 ml Q6H RESP THERAPY HHN Last administered on 09/20/18 13:58; Admin Dose 3 ML; Start 09/15/18 at 02:00 Nitroglycerin (Nitroglycerin (Sl Tab) 0.4 Mg) 1 tab Q5M PRN SL ANGINA; Start 09/15/18 at 00:00 Piperacillin Sod/ Tazobactam Sod 50 ml @ 100 mls/hr Q6 IVPB Last administered on 09/20/18 12:34; Admin Dose 100 MLS/HR; Start 09/15/18 at 00:16 Atorvastatin Calcium (Lipitor) 80 mg HS PO Last administered on 09/16/18at 21:01; Admin Dose 80 MG; Start 09/15/18 at 21:00 Miscellaneous Information 1 ea NOTE XX ; Start 09/16/18 at 12:00 Glucose (Glutose) 15 gm Q15M PRN PO DECREASED GLUCOSE; Start 09/16/18 at 12:00 Glucose (Glutose) 22.5 gm Q15M PRN PO DECREASED GLUCOSE; Start 09/16/18 at 12:00 Dextrose (D50w Syringe) 25 ml Q15M PRN IV DECREASED GLUCOSE; Start 09/16/18 at 12:00 Dextrose (D50w Syringe) 50 ml Q15M PRN IV DECREASED GLUCOSE; Start 09/16/18 at 12:00 Glucagon (Glucagen) 1 mg Q15M PRN IM DECREASED GLUCOSE; Start 09/16/18 at 12:00 Glucose (Glutose) 15 gm Q15M PRN BUCCAL DECREASED GLUCOSE; Start 09/16/18 at 12:00 Enoxaparin Sodium (Lovenox) 60 mg Q12 SC Last administered on 09/20/18at 09:09; Admin Dose 60 MG; Start 09/17/18 at 09:00 Furosemide (Lasix) 40 mg BID DIURETICS IV Last administered on 09/20/18at 05:35; Admin Dose 40 MG; Start 09/18/18 at 07:30 Lisinopril (Zestril) 5 mg BID PO Last administered on 09/20/18at 10:40; Admin Dose 5 MG; Start 09/19/18 at 21:00 Spironolactone (Aldactone) 25 mg DAILY PO Last administered on 09/20/18at 10:40; Admin Dose 25 MG; Start 09/19/18 at 17:30 Enalaprilat (Vasotec Iv) 0.625 mg Q6H PRN IV ELEVATED SYSTOLIC BP Last administered on 09/20/18at 09:03; Admin Dose 0.625 MG; Start 09/20/18 at 00:00 Amiodarone HCl (Cordarone) 400 mg BID PO Last administered on 09/20/18at 10:40; Admin Dose 400 MG; Start 09/20/18 at 09:00 Insulin Aspart (Novolog Insulin Pen) (Adult SC Insulin - Mild Algorithm)... AC MEALS AND BEDTIME SC ; Start 09/20/18 at 17:30 Diagnostic Test (Pha) (Accu-Chek) 1 ea 02 XX ; Start 09/21/18 at 02:00 BETTYE CASTANON Sep 20, 2018 15:13
[2018-09-20] MEDS ORDERED: MAGNESIUM SULFATE 1 GM/D5W 100 ML IVPB ONE (16:30)
[2018-09-20] MEDS ORDERED: INSULIN ASPART [NOVOLOG] 3 ML PEN SC SCH (18:00)
[2018-09-20] MEDS: Insulin NOVOLOG SS MILD Algorithm (SS with meals and bedtime) SC SCH ×2 (18:02→20:37)
[2018-09-20] MEDS: ATORVASTATIN 80 MG TAB PO SCH (20:22)
[2018-09-21] VITALS (18 sets, daily range): BP systolic 95–170; BP diastolic 53–79; PULSE 67–145; RESP 17–19
[2018-09-21] MEDS: ALBUTEROL/IPRATROPIUM (NEB) 3 ML AMP HHN SCH ×4 (01:37→20:08)
[2018-09-21] MEDS: ACCUCHECK AT 2AM (Patients on SS coverage) XX SCH (01:38)
[2018-09-21] MEDS: DILTIAZEM 25 MG INJ IV PRN ×3 (02:00→09:18)
[2018-09-21] MEDS: PIPER-TAZO 2.25 GM/NS 50 ML IVPB SCH ×4 (05:06→23:04)
[2018-09-21] MEDS: FUROSEMIDE 40 MG INJ IV SCH ×2 (05:08→17:50)
[2018-09-21] MEDS: SPIRONOLACTONE 25 MG TAB PO SCH (08:11)
[2018-09-21] MEDS: ASPIRIN 81 MG TAB PO SCH (08:12)
[2018-09-21] MEDS: AMIODARONE 200 MG TAB PO SCH (08:12)
[2018-09-21] MEDS: LISINOPRIL 5 MG TAB PO SCH ×2 (08:13→20:45)
[2018-09-21] MEDS: ENOXAPARIN 60 MG/0.6 ML SYG SC SCH (08:24)
[2018-09-21] MEDS: Insulin NOVOLOG SS MILD Algorithm (SS with meals and bedtime) SC SCH ×4 (08:30→21:11)
--- NOTE | 2018-09-21 08:33 | PN ---
Date/Time of Note Date/Time of Note DATE: 09/21/18 TIME: 08:33 Assessment/Plan VTE Prophylaxis Risk score (from Nsg)>0 risk: 10 SCD applied (from Nsg): Yes Pharmacological prophylaxis: apixaban Lines/Catheters IV Catheter Type (from Nrsg): Central Line Central line still needed: Yes Urinary Cath still in place: Yes Reason Cath still needed: terminal illness/intractable pain Assessment/Plan Assessment/Plan 1. Acute hypoxic respiratory failure- improving - Patient weaned off high flow and tolerating NC well. Saturations >90% on 2L - Pulm on board and appreciate recommendations - Cardiology on board and continuing aggressive diuresis 2. A. fib with RVR - patient back in afib overnight and Cardiology aware - Given extra dose of Cardizem this am and will monitor HR 3. Sepsis secondary to UTI and/or pneumonia- stable - Continue IV antibiotics and final cultures noted - On Zosyn day 6. Remains afebrile and WBC nl 4. NSTEMI - s/p LHC on 09/16 that showed triple vessel disease - CT surgery input appreciated and not recommending surgical intervention due to high risk. Family also opting not to proceed with surgical intervention - will continue aggressive medical management per Cardiology recommendations 5. Diabetes - A1c noted - ISS and accuchecks 6. HTN - BP stable 7. Normocytic anemia likely secondary chronic disease - Monitor - no need for transfusion at this time 8. Disposition - Patient back in afib with RVR. Will need HR better controlled prior to d/c - PT ordered for discharge planning - Continue diuresing per Cardiology recommendations Result Diagram: 09/21/18 0450 09/21/18 0450 Results 24hrs Laboratory Tests Test 09/20/18 12:30 09/20/18 17:27 09/20/18 20:02 09/21/18 01:22 Bedside Glucose 200 159 246 H 175 Test 09/21/18 04:50 09/21/18 08:08 White Blood Count 8.1 Red Blood Count 3.47 L Hemoglobin 10.9 L Hematocrit 34.0 L Mean Corpuscular 98.0 Volume Mean Corpuscular 31.4 Hemoglobin Mean Corpuscular 32.1 Hemoglobin Concent Red Cell 13.0 Distribution Width Platelet Count 228 Mean Platelet Volume 9.8 Immature 1.400 H Granulocytes % Neutrophils % 71.6 Lymphocytes % 14.1 L Monocytes % 10.2 Eosinophils % 2.3 Basophils % 0.4 Nucleated Red Blood 0.2 H Cells % Immature 0.110 H Granulocytes # Neutrophils # 5.8 Lymphocytes # 1.2 Monocytes # 0.8 Eosinophils # 0.2 Basophils # 0.0 Nucleated Red Blood 0.0 Cells # Sodium Level 145 H Potassium Level 3.9 Chloride Level 99 Carbon Dioxide Level 35 H Anion Gap 11 Blood Urea Nitrogen 30 H Creatinine 1.07 H Est Glomerular Filtrat Rate mL/min Glucose Level 166 Calcium Level 9.0 Magnesium Level 1.8 Total Bilirubin 0.7 Direct Bilirubin 0.00 Indirect Bilirubin 0.7 Aspartate Amino 62 H Transf (AST/SGOT) Alanine 469 H Aminotransferase (AL T/SGPT) Alkaline Phosphatase 126 H Total Protein 7.0 Albumin 3.3 Globulin 3.70 H Albumin/Globulin 0.89 Ratio Bedside Glucose 165 Subjective 24 Hr Interval Summary Free Text/Dictation Patient did not sleep well overnight and had episodes of afib with RVR. Family at bedside and plan of care discussed. Exam/Review of Systems Exam Vitals Vital Signs Date Temp Pulse Resp B/P (MAP) Pulse Ox O2 O2 Flow FiO2 Time Delivery Rate 09/21/18 Nasal 2.0 07:51 Cannula 09/21/18 98.2 67 19 170/71 95 07:20 (104) 09/20/18 40 11:15 Intake and Output 09/20/18 09/20/18 09/21/18 1515:00 23:00 07:00 IntakeIntake Total 650 ml 200 ml OutputOutput Total 1700 ml 1400 ml BalanceBalance -1050 ml -1200 ml Exam General: fatigued, no acute distress Neck: Supple Chest: Nontender Lungs: Crackles at bases, no wheezing appreciated Heart: Normal S1-S2, irregular rhythm, tachycardia, Systolic murmur Abdomen: Soft , nontender, nondistended , bowel sounds are present. No guarding no rebound tenderness Skin: no acute rashes appreciated Results Results 24hrs Laboratory Tests Test 09/20/18 12:30 09/20/18 17:27 09/20/18 20:02 09/21/18 01:22 Bedside Glucose 200 159 246 H 175 Test 09/21/18 04:50 09/21/18 08:08 White Blood Count 8.1 Red Blood Count 3.47 L Hemoglobin 10.9 L Hematocrit 34.0 L Mean Corpuscular 98.0 Volume Mean Corpuscular 31.4 Hemoglobin Mean Corpuscular 32.1 Hemoglobin Concent Red Cell 13.0 Distribution Width Platelet Count 228 Mean Platelet Volume 9.8 Immature 1.400 H Granulocytes % Neutrophils % 71.6 Lymphocytes % 14.1 L Monocytes % 10.2 Eosinophils % 2.3 Basophils % 0.4 Nucleated Red Blood 0.2 H Cells % Immature 0.110 H Granulocytes # Neutrophils # 5.8 Lymphocytes # 1.2 Monocytes # 0.8 Eosinophils # 0.2 Basophils # 0.0 Nucleated Red Blood 0.0 Cells # Sodium Level 145 H Potassium Level 3.9 Chloride Level 99 Carbon Dioxide Level 35 H Anion Gap 11 Blood Urea Nitrogen 30 H Creatinine 1.07 H Est Glomerular Filtrat Rate mL/min Glucose Level 166 Calcium Level 9.0 Magnesium Level 1.8 Total Bilirubin 0.7 Direct Bilirubin 0.00 Indirect Bilirubin 0.7 Aspartate Amino 62 H Transf (AST/SGOT) Alanine 469 H Aminotransferase (AL T/SGPT) Alkaline Phosphatase 126 H Total Protein 7.0 Albumin 3.3 Globulin 3.70 H Albumin/Globulin 0.89 Ratio Bedside Glucose 165 Medications Medication Current Medications IV Flush (NS 3 ml) 3 ml PER PROTOCOL IV ; Start 09/14/18 at 19:30 Ondansetron HCl (Zofran Inj) 4 mg Q6H PRN IV NAUSEA/VOMITING; Start 09/14/18 at 19:30 Acetaminophen (Tylenol Tab) 650 mg Q6H PRN PO .PAIN 1-3 OR TEMP; Start 09/14/18 at 19:30 Acetaminophen/ Hydrocodone Bitart ([place] (5/325)) 1 tab Q6H PRN PO .MOD PAIN 4- 6 Last administered on 09/14/18at 22:07; Admin Dose 1 TAB; Start 09/14/18 at 19:30 Morphine Sulfate (morphine) 2 mg Q4H PRN IV .SEVERE PAIN 7-10 Last administered on 09/17/18at 13:38; Admin Dose 2 MG; Start 09/14/18 at 19:30 Docusate Sodium (Colace) 100 mg Q12H PRN PO .CONSTIPATION Last administered on 09/21/18at 08:12; Admin Dose 100 MG; Start 09/14/18 at 19:30 Zolpidem Tartrate (Ambien) 5 mg QHS PRN PO .INSOMNIA; Start 09/14/18 at 19:30 Aspirin (Aspirin) 81 mg DAILY PO Last administered on 09/21/18at 08:12; Admin Dose 81 MG; Start 09/15/18 at 09:00 Budesonide (Pulmicort (Neb)) 0.5 mg BID RESP THERAPY HHN Last administered on 09/20/18at 19:55; Admin Dose 0.5 MG; Start 09/15/18 at 09:00 Albuterol/ Ipratropium (Duoneb) 3 ml Q2H RESP THERAPY PRN HHN shortness of breath Last administered on 09/16/18at 11:25; Admin Dose 3 ML; Start 09/15/18 at 00:00 Albuterol/ Ipratropium (Duoneb) 3 ml Q6H RESP THERAPY HHN Last administered on 09/21/18at 01:37; Admin Dose 3 ML; Start 09/15/18 at 02:00 Nitroglycerin (Nitroglycerin (Sl Tab) 0.4 Mg) 1 tab Q5M PRN SL ANGINA; Start 09/15/18 at 00:00 Piperacillin Sod/ Tazobactam Sod 50 ml @ 100 mls/hr Q6 IVPB Last administered on 09/21/18at 05:06; Admin Dose 100 MLS/HR; Start 09/15/18 at 00:16 Atorvastatin Calcium (Lipitor) 80 mg HS PO Last administered on 09/20/18at 20:22; Admin Dose 80 MG; Start 09/15/18 at 21:00 Miscellaneous Information 1 ea NOTE XX ; Start 09/16/18 at 12:00 Glucose (Glutose) 15 gm Q15M PRN PO DECREASED GLUCOSE; Start 09/16/18 at 12:00 Glucose (Glutose) 22.5 gm Q15M PRN PO DECREASED GLUCOSE; Start 09/16/18 at 12:00 Dextrose (D50w Syringe) 25 ml Q15M PRN IV DECREASED GLUCOSE; Start 09/16/18 at 12:00 Dextrose (D50w Syringe) 50 ml Q15M PRN IV DECREASED GLUCOSE; Start 09/16/18 at 12:00 Glucagon (Glucagen) 1 mg Q15M PRN IM DECREASED GLUCOSE; Start 09/16/18 at 12:00 Glucose (Glutose) 15 gm Q15M PRN BUCCAL DECREASED GLUCOSE; Start 09/16/18 at 12:00 Enoxaparin Sodium (Lovenox) 60 mg Q12 SC Last administered on 09/21/18 08:24; Admin Dose 60 MG; Start 09/17/18 at 09:00 Furosemide (Lasix) 40 mg BID DIURETICS IV Last administered on 09/21/18 05:08; Admin Dose 40 MG; Start 09/18/18 at 07:30 Lisinopril (Zestril) 5 mg BID PO Last administered on 09/21/18 08:13; Admin Dose 5 MG; Start 09/19/18 at 21:00 Spironolactone (Aldactone) 25 mg DAILY PO Last administered on 09/21/18 08:11; Admin Dose 25 MG; Start 09/19/18 at 17:30 Enalaprilat (Vasotec Iv) 0.625 mg Q6H PRN IV ELEVATED SYSTOLIC BP Last administered on 09/20/18 09:03; Admin Dose 0.625 MG; Start 09/20/18 at 00:00 Amiodarone HCl (Cordarone) 400 mg BID PO Last administered on 09/21/18 08:12; Admin Dose 400 MG; Start 09/20/18 at 09:00 Insulin Aspart (Novolog Insulin Pen) (Adult SC Insulin - Mild Algorithm)... AC MEALS AND BEDTIME SC Last administered on 09/21/18 08:30; Admin Dose 1 UNIT; Start 09/20/18 at 17:30 Diagnostic Test (Pha) (Accu-Chek) 1 ea 02 XX Last administered on 09/21/18 01:38; Admin Dose 1 EA; Start 09/21/18 at 02:00 Diltiazem HCl (Cardizem Iv) 10 mg Q1H PRN IV ELEVATED HEART RATE Last administered on 09/21/18 03:06; Admin Dose 10 MG; Start 09/21/18 at 02:00 PASTOR ROMERO MD Sep 21, 2018 08:33
[2018-09-21] MEDS ORDERED: MAGNESIUM SULFATE 2 GM/50 ML 50 ML IVPB ONE (09:00)
[2018-09-21] MEDS ORDERED: APIXABAN 5 MG TABLET PO SCH (09:00)
[2018-09-21] MEDS: BUDESONIDE (NEB) 0.5MG/2ML AMP HHN SCH ×2 (09:02→20:08)
[2018-09-21] MEDS ORDERED: AMIODARONE 900 MG in DEXTROSE 5% 482 ML IV SCH (10:00)
[2018-09-21] MEDS ORDERED: AMIODARONE 150MG/D5W BOLUS 100 ML IV ONE (10:00)
--- NOTE | 2018-09-21 12:14 | CONS ---
Consult Date/Type/Reason Admit Date/Time Sep 14, 2018 at 17:13 Initial Consult Date 09/15/18 Type of Consult Pulmonary Requesting Provider: HAYLEY ARREDONDO Date/Time of Note DATE: 09/21/18 TIME: 12:10 Subjective Continues to improve. Now on NC o2. Objective Vital Signs Date Temp Pulse Resp B/P (MAP) Pulse Ox O2 O2 Flow FiO2 Time Delivery Rate 09/21/18 131 105/65 11:07 (78) 09/21/18 98.4 19 96 11:02 09/21/18 2.0 09:05 09/21/18 Nasal 09:04 Cannula 09/20/18 40 11:15 Intake and Output 09/20/18 09/20/18 09/21/18 1515:00 23:00 07:00 IntakeIntake Total 650 ml 200 ml OutputOutput Total 1700 ml 1400 ml BalanceBalance -1050 ml -1200 ml Exam Elderly lady comfortable at rest GENERAL: VITAL SIGNS: per chart NECK: Supple. No JVD or lymphadenopathy. CARDIAC EXAM: S1, S2. No added sounds or murmurs. CHEST: Diminished bilaterally ABDOMEN: Soft, nontender. No guarding or rebound. EXTREMITIES: No cyanosis, clubbing or edema. NEUROLOGIC: Generalized weakness. No focal deficits. Vent Setting Fraction of Inspired Oxygen pe: 40 Results/Medications Result Diagram: 09/21/18 0450 09/21/18 0450 Results 24 hrs Laboratory Tests Test 09/20/18 12:30 09/20/18 17:27 09/20/18 20:02 09/21/18 01:22 Bedside Glucose 200 159 246 H 175 Test 09/21/18 04:50 09/21/18 08:08 White Blood Count 8.1 Red Blood Count 3.47 L Hemoglobin 10.9 L Hematocrit 34.0 L Mean Corpuscular 98.0 Volume Mean Corpuscular 31.4 Hemoglobin Mean Corpuscular 32.1 Hemoglobin Concent Red Cell 13.0 Distribution Width Platelet Count 228 Mean Platelet Volume 9.8 Immature 1.400 H Granulocytes % Neutrophils % 71.6 Lymphocytes % 14.1 L Monocytes % 10.2 Eosinophils % 2.3 Basophils % 0.4 Nucleated Red Blood 0.2 H Cells % Immature 0.110 H Granulocytes # Neutrophils # 5.8 Lymphocytes # 1.2 Monocytes # 0.8 Eosinophils # 0.2 Basophils # 0.0 Nucleated Red Blood 0.0 Cells # Sodium Level 145 H Potassium Level 3.9 Chloride Level 99 Carbon Dioxide Level 35 H Anion Gap 11 Blood Urea Nitrogen 30 H Creatinine 1.07 H Est Glomerular Filtrat Rate mL/min Glucose Level 166 Calcium Level 9.0 Magnesium Level 1.8 Total Bilirubin 0.7 Direct Bilirubin 0.00 Indirect Bilirubin 0.7 Aspartate Amino 62 H Transf (AST/SGOT) Alanine 469 H Aminotransferase (AL T/SGPT) Alkaline Phosphatase 126 H Total Protein 7.0 Albumin 3.3 Globulin 3.70 H Albumin/Globulin 0.89 Ratio Bedside Glucose 165 Medications Current Medications IV Flush (NS 3 ml) 3 ml PER PROTOCOL IV ; Start 09/14/18 at 19:30 Ondansetron HCl (Zofran Inj) 4 mg Q6H PRN IV NAUSEA/VOMITING; Start 09/14/18 at 19:30 Acetaminophen (Tylenol Tab) 650 mg Q6H PRN PO .PAIN 1-3 OR TEMP; Start 09/14/18 at 19:30 Acetaminophen/ Hydrocodone Bitart ([place] (5/325)) 1 tab Q6H PRN PO .MOD PAIN 4- 6 Last administered on 09/14/18 22:07; Admin Dose 1 TAB; Start 09/14/18 at 19:30 Morphine Sulfate (morphine) 2 mg Q4H PRN IV .SEVERE PAIN 7-10 Last administered on 09/17/18at 13:38; Admin Dose 2 MG; Start 09/14/18 at 19:30 Docusate Sodium (Colace) 100 mg Q12H PRN PO .CONSTIPATION Last administered on 09/21/18 08:12; Admin Dose 100 MG; Start 09/14/18 at 19:30 Zolpidem Tartrate (Ambien) 5 mg QHS PRN PO .INSOMNIA; Start 09/14/18 at 19:30 Aspirin (Aspirin) 81 mg DAILY PO Last administered on 09/21/18 08:12; Admin Dose 81 MG; Start 09/15/18 at 09:00 Budesonide (Pulmicort (Neb)) 0.5 mg BID RESP THERAPY HHN Last administered on 09/21/18 09:02; Admin Dose 0.5 MG; Start 09/15/18 at 09:00 Albuterol/ Ipratropium (Duoneb) 3 ml Q2H RESP THERAPY PRN HHN shortness of breath Last administered on 09/16/18 11:25; Admin Dose 3 ML; Start 09/15/18 at 00:00 Albuterol/ Ipratropium (Duoneb) 3 ml Q6H RESP THERAPY HHN Last administered on 09/21/18 08:53; Admin Dose 3 ML; Start 09/15/18 at 02:00 Nitroglycerin (Nitroglycerin (Sl Tab) 0.4 Mg) 1 tab Q5M PRN SL ANGINA; Start 09/15/18 at 00:00 Piperacillin Sod/ Tazobactam Sod 50 ml @ 100 mls/hr Q6 IVPB Last administered on 09/21/18 05:06; Admin Dose 100 MLS/HR; Start 09/15/18 at 00:16 Atorvastatin Calcium (Lipitor) 80 mg HS PO Last administered on 09/20/18 20:22; Admin Dose 80 MG; Start 09/15/18 at 21:00 Miscellaneous Information 1 ea NOTE XX ; Start 09/16/18 at 12:00 Glucose (Glutose) 15 gm Q15M PRN PO DECREASED GLUCOSE; Start 09/16/18 at 12:00 Glucose (Glutose) 22.5 gm Q15M PRN PO DECREASED GLUCOSE; Start 09/16/18 at 12:00 Dextrose (D50w Syringe) 25 ml Q15M PRN IV DECREASED GLUCOSE; Start 09/16/18 at 12:00 Dextrose (D50w Syringe) 50 ml Q15M PRN IV DECREASED GLUCOSE; Start 09/16/18 at 12:00 Glucagon (Glucagen) 1 mg Q15M PRN IM DECREASED GLUCOSE; Start 09/16/18 at 12:00 Glucose (Glutose) 15 gm Q15M PRN BUCCAL DECREASED GLUCOSE; Start 09/16/18 at 12:00 Furosemide (Lasix) 40 mg BID DIURETICS IV Last administered on 09/21/18at 05:08; Admin Dose 40 MG; Start 09/18/18 at 07:30 Lisinopril (Zestril) 5 mg BID PO Last administered on 09/21/18 08:13; Admin Dose 5 MG; Start 09/19/18 at 21:00 Spironolactone (Aldactone) 25 mg DAILY PO Last administered on 09/21/18 08:11; Admin Dose 25 MG; Start 09/19/18 at 17:30 Enalaprilat (Vasotec Iv) 0.625 mg Q6H PRN IV ELEVATED SYSTOLIC BP Last administered on 09/20/18 09:03; Admin Dose 0.625 MG; Start 09/20/18 at 00:00 Insulin Aspart (Novolog Insulin Pen) (Adult SC Insulin - Mild Algorithm)... AC MEALS AND BEDTIME SC Last administered on 09/21/18 08:30; Admin Dose 1 UNIT; Start 09/20/18 at 17:30 Diagnostic Test (Pha) (Accu-Chek) 1 ea 02 XX Last administered on 09/21/18 01:38; Admin Dose 1 EA; Start 09/21/18 at 02:00 Diltiazem HCl (Cardizem Iv) 10 mg Q1H PRN IV ELEVATED HEART RATE Last administered on 09/21/18 09:18; Admin Dose 10 MG; Start 09/21/18 at 02:00 Apixaban (Eliquis) 5 mg BID PO ; Start 09/21/18 at 21:00 Amiodarone HCl 900 mg/Dextrose 500 ml @ 0 mls/hr Q0M IV Last administered on 09/21/18 11:08; Admin Dose 33.4 MLS/HR; Start 09/21/18 at 10:00; Stop 09/22/18 at 09:59 Metoprolol Tartrate (Lopressor) 25 mg Q8 PO ; Start 09/21/18 at 14:00; Status UNV Assessment/Plan Hospital Course (Demo Recall) IMPRESSION 1. Status post septic shock, likely secondary to urinary tract infection. 2. Possible community-acquired pneumonia. 3. Pulmonary edema with acute hypoxemic respiratory failure. Progressive hypoxemia secondary to pulmonary edema, slowly improving. 4. Renal insufficiency, likely acute tubular necrosis injury. 5. 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 Continue broad-spectrum antibiotics. 2. Decrease IV fluids IV diuresis 3. Cardiac recs 4. decrease o2 as tolerated 5. DVT and GI prophylaxis. 6. PT eval. Consider ARU discussed with family at bedside [facility] FLORES [facility], [facility] Sep 21, 2018 12:14
--- NOTE | 2018-09-21 12:14 | CONS ---
Assessment/Plan Cardiology NYHA: II Heart Failure Type: Acute on Chronic Heart Failure Type: Systolic Assessment/Plan Hospital Course (Demo Recall) 1. 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 Congestive heart failure appears acute secondary systolic heart failure 3. Sepsis 4. Paroxysmal atrial fibrillation, junctional rhythm 5. Severe cardiomyopathy ischemic 6/ DM 7. Hypertension 8. Aortic valve stenosis -Patient with recurrent episodes of atrial fibrillation with rapid ventricular rates. Was previously on p.o. amiodarone, I have adjusted to IV amiodarone -Start p.o. beta-ancelmo and titrate as heart rate and blood pressure permits -Diuretics as per nephrology -Ideally maintain potassium above 4.0 and magnesium above 2.0 given recurrent arrhythmias and congestive heart failure -Dr Jimenez to resume care 09/22/2018 Consultation Date/Type/Reason Admit Date/Time Sep 14, 2018 at 17:13 Initial Consult Date 09/15/18 Type of Consult Cardiology Requesting Provider: HAYLEY ARREDONDO Date/Time of Note DATE: 09/21/18 TIME: 12:09 24 HR Interval Summary Free Text/Dictation Denies shortness of breath, chest pain, palpitations or dizziness Exam/Review of Systems Vital Signs Vitals Vital Signs Date Temp Pulse Resp B/P (MAP) Pulse Ox O2 O2 Flow FiO2 Time Delivery Rate 09/21/18 131 105/65 11:07 (78) 09/21/18 98.4 19 96 11:02 09/21/18 2.0 09:05 09/21/18 Nasal 09:04 Cannula 09/20/18 40 11:15 Intake and Output 09/20/18 09/20/18 09/21/18 1515:00 23:00 07:00 IntakeIntake Total 650 ml 200 ml OutputOutput Total 1700 ml 1400 ml BalanceBalance -1050 ml -1200 ml Exam Constitutional: alert, oriented (No apparent distress, family at bedside, following commands) Head: normocephalic Respiratory: other (Coarse breath sounds bilaterally, no wheezing) Cardiovascular: regular rate and rhythm (S1-S2 heard) Gastrointestinal: soft, non-tender, bowel sounds Extremities: edema Labs Result Diagram: 09/21/18 0450 09/21/18 0450 Results 24hrs Laboratory Tests Test 09/20/18 12:30 09/20/18 17:27 09/20/18 20:02 09/21/18 01:22 Bedside Glucose 200 159 246 H 175 Test 09/21/18 04:50 09/21/18 08:08 White Blood Count 8.1 Red Blood Count 3.47 L Hemoglobin 10.9 L Hematocrit 34.0 L Mean Corpuscular 98.0 Volume Mean Corpuscular 31.4 Hemoglobin Mean Corpuscular 32.1 Hemoglobin Concent Red Cell 13.0 Distribution Width Platelet Count 228 Mean Platelet Volume 9.8 Immature 1.400 H Granulocytes % Neutrophils % 71.6 Lymphocytes % 14.1 L Monocytes % 10.2 Eosinophils % 2.3 Basophils % 0.4 Nucleated Red Blood 0.2 H Cells % Immature 0.110 H Granulocytes # Neutrophils # 5.8 Lymphocytes # 1.2 Monocytes # 0.8 Eosinophils # 0.2 Basophils # 0.0 Nucleated Red Blood 0.0 Cells # Sodium Level 145 H Potassium Level 3.9 Chloride Level 99 Carbon Dioxide Level 35 H Anion Gap 11 Blood Urea Nitrogen 30 H Creatinine 1.07 H Est Glomerular Filtrat Rate mL/min Glucose Level 166 Calcium Level 9.0 Magnesium Level 1.8 Total Bilirubin 0.7 Direct Bilirubin 0.00 Indirect Bilirubin 0.7 Aspartate Amino 62 H Transf (AST/SGOT) Alanine 469 H Aminotransferase (AL T/SGPT) Alkaline Phosphatase 126 H Total Protein 7.0 Albumin 3.3 Globulin 3.70 H Albumin/Globulin 0.89 Ratio Bedside Glucose 165 Medications Medications Current Medications IV Flush (NS 3 ml) 3 ml PER PROTOCOL IV ; Start 09/14/18 at 19:30 Ondansetron HCl (Zofran Inj) 4 mg Q6H PRN IV NAUSEA/VOMITING; Start 09/14/18 at 19:30 Acetaminophen (Tylenol Tab) 650 mg Q6H PRN PO .PAIN 1-3 OR TEMP; Start 09/14/18 at 19:30 Acetaminophen/ Hydrocodone Bitart ([place] (5/325)) 1 tab Q6H PRN PO .MOD PAIN 4- 6 Last administered on 09/14/18at 22:07; Admin Dose 1 TAB; Start 09/14/18 at 19:30 Morphine Sulfate (morphine) 2 mg Q4H PRN IV .SEVERE PAIN 7-10 Last administered on 09/17/18at 13:38; Admin Dose 2 MG; Start 09/14/18 at 19:30 Docusate Sodium (Colace) 100 mg Q12H PRN PO .CONSTIPATION Last administered on 09/21/18 08:12; Admin Dose 100 MG; Start 09/14/18 at 19:30 Zolpidem Tartrate (Ambien) 5 mg QHS PRN PO .INSOMNIA; Start 09/14/18 at 19:30 Aspirin (Aspirin) 81 mg DAILY PO Last administered on 09/21/18 08:12; Admin Dose 81 MG; Start 09/15/18 at 09:00 Budesonide (Pulmicort (Neb)) 0.5 mg BID RESP THERAPY HHN Last administered on 09/21/18 09:02; Admin Dose 0.5 MG; Start 09/15/18 at 09:00 Albuterol/ Ipratropium (Duoneb) 3 ml Q2H RESP THERAPY PRN HHN shortness of breath Last administered on 09/16/18 11:25; Admin Dose 3 ML; Start 09/15/18 at 00:00 Albuterol/ Ipratropium (Duoneb) 3 ml Q6H RESP THERAPY HHN Last administered on 09/21/18 08:53; Admin Dose 3 ML; Start 09/15/18 at 02:00 Nitroglycerin (Nitroglycerin (Sl Tab) 0.4 Mg) 1 tab Q5M PRN SL ANGINA; Start 09/15/18 at 00:00 Piperacillin Sod/ Tazobactam Sod 50 ml @ 100 mls/hr Q6 IVPB Last administered on 09/21/18 05:06; Admin Dose 100 MLS/HR; Start 09/15/18 at 00:16 Atorvastatin Calcium (Lipitor) 80 mg HS PO Last administered on 09/20/18at 20:22; Admin Dose 80 MG; Start 09/15/18 at 21:00 Miscellaneous Information 1 ea NOTE XX ; Start 09/16/18 at 12:00 Glucose (Glutose) 15 gm Q15M PRN PO DECREASED GLUCOSE; Start 09/16/18 at 12:00 Glucose (Glutose) 22.5 gm Q15M PRN PO DECREASED GLUCOSE; Start 09/16/18 at 12:00 Dextrose (D50w Syringe) 25 ml Q15M PRN IV DECREASED GLUCOSE; Start 09/16/18 at 12:00 Dextrose (D50w Syringe) 50 ml Q15M PRN IV DECREASED GLUCOSE; Start 09/16/18 at 12:00 Glucagon (Glucagen) 1 mg Q15M PRN IM DECREASED GLUCOSE; Start 09/16/18 at 12:00 Glucose (Glutose) 15 gm Q15M PRN BUCCAL DECREASED GLUCOSE; Start 09/16/18 at 12:00 Furosemide (Lasix) 40 mg BID DIURETICS IV Last administered on 09/21/18 05:08; Admin Dose 40 MG; Start 09/18/18 at 07:30 Lisinopril (Zestril) 5 mg BID PO Last administered on 09/21/18 08:13; Admin Dose 5 MG; Start 09/19/18 at 21:00 Spironolactone (Aldactone) 25 mg DAILY PO Last administered on 09/21/18 08:11; Admin Dose 25 MG; Start 09/19/18 at 17:30 Enalaprilat (Vasotec Iv) 0.625 mg Q6H PRN IV ELEVATED SYSTOLIC BP Last administered on 09/20/18 09:03; Admin Dose 0.625 MG; Start 09/20/18 at 00:00 Amiodarone HCl (Cordarone) 400 mg BID PO Last administered on 09/21/18 08:12; Admin Dose 400 MG; Start 09/20/18 at 09:00; Status Hold Insulin Aspart (Novolog Insulin Pen) (Adult SC Insulin - Mild Algorithm)... AC MEALS AND BEDTIME SC Last administered on 09/21/18 08:30; Admin Dose 1 UNIT; Start 09/20/18 at 17:30 Diagnostic Test (Pha) (Accu-Chek) 1 ea 02 XX Last administered on 09/21/18 01:38; Admin Dose 1 EA; Start 09/21/18 at 02:00 Diltiazem HCl (Cardizem Iv) 10 mg Q1H PRN IV ELEVATED HEART RATE Last administered on 09/21/18 09:18; Admin Dose 10 MG; Start 09/21/18 at 02:00 Apixaban (Eliquis) 5 mg BID PO ; Start 09/21/18 at 21:00 Amiodarone HCl 900 mg/Dextrose 500 ml @ 0 mls/hr Q0M IV Last administered on 09/21/18 11:08; Admin Dose 33.4 MLS/HR; Start 09/21/18 at 10:00; Stop 09/22/18 at 09:59 Osorio Cunningham DO Sep 21, 2018 12:14
--- NOTE | 2018-09-21 13:26 | PN ---
Date/Time of Note Date/Time of Note DATE: 09/21/18 TIME: 13:26 Assessment/Plan VTE Prophylaxis Risk score (from [facility]0 risk: 9 SCD applied (from [facility]): Yes Pharmacological prophylaxis: other Pharm contraindication: other Lines/Catheters IV Catheter Type (from [facility]): Central Line Central line still needed: Yes Urinary Cath still in place: Yes Reason Cath still needed: urinary retention Assessment/Plan Assessment/Plan 1. acute Renal failure 2/2 Hemodynamics from CHF 2. acute CHF, possibly systolic with low EF 3. atrial fibrillation with RVR 5. septich shock possibly due to UTI 6. UTI with Urine cx growing Group B streptoccoci 7. Acute NSTEMI s/p LHC on 09/15/18 that showed multivessel obstructive CAD 8. h/o HTN 9. H/o DM II 10. H/o HL 11. metabolic acidosis due to Septic shock + renal failure 12. atrial fibrillation with RVR Plan: More alert today, on High flow oxygen, Code status changed to DNR - BUN/Cr 30/1.07, K 3.9, K replacement ordered by PMD, Mag 1.8- - UO- 3.0 L/24 hrs -S/p LHC that showed multivessel obstructive CAD- s/p CT surgery evaluation, too high risk for surgery , family wants to wait, medical management for now on amiodarone gtt for rate control for atrial fibrillation IV abx zosyn for sepsis, renally dose all abx and monitor electrolytes will follow up Dw Dr Clare Yousif Result Diagram: 09/21/18 04509/21/18 0450 Results 24hrs Laboratory Tests Test 09/20/18 17:27 09/20/18 20:02 09/21/18 01:22 09/21/18 04:50 Bedside Glucose 159 246 H 175 White Blood Count 8.1 Red Blood Count 3.47 L Hemoglobin 10.9 L Hematocrit 34.0 L Mean Corpuscular 98.0 Volume Mean Corpuscular 31.4 Hemoglobin Mean Corpuscular 32.1 Hemoglobin Concent Red Cell 13.0 Distribution Width Platelet Count 228 Mean Platelet Volume 9.8 Immature 1.400 H Granulocytes % Neutrophils % 71.6 Lymphocytes % 14.1 L Monocytes % 10.2 Eosinophils % 2.3 Basophils % 0.4 Nucleated Red Blood 0.2 H Cells % Immature 0.110 H Granulocytes # Neutrophils # 5.8 Lymphocytes # 1.2 Monocytes # 0.8 Eosinophils # 0.2 Basophils # 0.0 Nucleated Red Blood 0.0 Cells # Sodium Level 145 H Potassium Level 3.9 Chloride Level 99 Carbon Dioxide Level 35 H Anion Gap 11 Blood Urea Nitrogen 30 H Creatinine 1.07 H Est Glomerular Filtrat Rate mL/min Glucose Level 166 Calcium Level 9.0 Magnesium Level 1.8 Total Bilirubin 0.7 Direct Bilirubin 0.00 Indirect Bilirubin 0.7 Aspartate Amino 62 H Transf (AST/SGOT) Alanine 469 H Aminotransferase (AL T/SGPT) Alkaline Phosphatase 126 H Total Protein 7.0 Albumin 3.3 Globulin 3.70 H Albumin/Globulin 0.89 Ratio Test 09/21/18 08:08 09/21/18 12:20 Bedside Glucose 165 216 Exam/Review of Systems Exam Vitals Vital Signs Date Temp Pulse Resp B/P (MAP) Pulse Ox O2 O2 Flow FiO2 Time Delivery Rate 09/21/18 113 12:41 09/21/18 105/65 11:07 (78) 09/21/18 98.4 19 96 11:02 09/21/18 2.0 09:05 09/21/18 Nasal 09:04 Cannula 09/20/18 40 11:15 Intake and Output 09/20/18 09/20/18 09/21/18 1515:00 23:00 07:00 IntakeIntake Total 650 ml 200 ml OutputOutput Total 1700 ml 1400 ml BalanceBalance -1050 ml -1200 ml Results Results 24hrs Laboratory Tests Test 09/20/18 17:27 09/20/18 20:02 09/21/18 01:22 09/21/18 04:50 Bedside Glucose 159 246 H 175 White Blood Count 8.1 Red Blood Count 3.47 L Hemoglobin 10.9 L Hematocrit 34.0 L Mean Corpuscular 98.0 Volume Mean Corpuscular 31.4 Hemoglobin Mean Corpuscular 32.1 Hemoglobin Concent Red Cell 13.0 Distribution Width Platelet Count 228 Mean Platelet Volume 9.8 Immature 1.400 H Granulocytes % Neutrophils % 71.6 Lymphocytes % 14.1 L Monocytes % 10.2 Eosinophils % 2.3 Basophils % 0.4 Nucleated Red Blood 0.2 H Cells % Immature 0.110 H Granulocytes # Neutrophils # 5.8 Lymphocytes # 1.2 Monocytes # 0.8 Eosinophils # 0.2 Basophils # 0.0 Nucleated Red Blood 0.0 Cells # Sodium Level 145 H Potassium Level 3.9 Chloride Level 99 Carbon Dioxide Level 35 H Anion Gap 11 Blood Urea Nitrogen 30 H Creatinine 1.07 H Est Glomerular Filtrat Rate mL/min Glucose Level 166 Calcium Level 9.0 Magnesium Level 1.8 Total Bilirubin 0.7 Direct Bilirubin 0.00 Indirect Bilirubin 0.7 Aspartate Amino 62 H Transf (AST/SGOT) Alanine 469 H Aminotransferase (AL T/SGPT) Alkaline Phosphatase 126 H Total Protein 7.0 Albumin 3.3 Globulin 3.70 H Albumin/Globulin 0.89 Ratio Test 09/21/18 08:08 09/21/18 12:20 Bedside Glucose 165 216 Medications Medication Current Medications IV Flush (NS 3 ml) 3 ml PER PROTOCOL IV ; Start 09/14/18 at 19:30 Ondansetron HCl (Zofran Inj) 4 mg Q6H PRN IV NAUSEA/VOMITING; Start 09/14/18 at 19:30 Acetaminophen (Tylenol Tab) 650 mg Q6H PRN PO .PAIN 1-3 OR TEMP; Start 09/14/18 at 19:30 Acetaminophen/ Hydrocodone Bitart ([place] (5/325)) 1 tab Q6H PRN PO .MOD PAIN 4- 6 Last administered on 09/14/18at 22:07; Admin Dose 1 TAB; Start 09/14/18 at 19:30 Morphine Sulfate (morphine) 2 mg Q4H PRN IV .SEVERE PAIN 7-10 Last administered on 09/17/18at 13:38; Admin Dose 2 MG; Start 09/14/18 at 19:30 Docusate Sodium (Colace) 100 mg Q12H PRN PO .CONSTIPATION Last administered on 09/21/18 08:12; Admin Dose 100 MG; Start 09/14/18 at 19:30 Zolpidem Tartrate (Ambien) 5 mg QHS PRN PO .INSOMNIA; Start 09/14/18 at 19:30 Aspirin (Aspirin) 81 mg DAILY PO Last administered on 09/21/18 08:12; Admin Dose 81 MG; Start 09/15/18 at 09:00 Budesonide (Pulmicort (Neb)) 0.5 mg BID RESP THERAPY HHN Last administered on 09/21/18 09:02; Admin Dose 0.5 MG; Start 09/15/18 at 09:00 Albuterol/ Ipratropium (Duoneb) 3 ml Q2H RESP THERAPY PRN HHN shortness of breath Last administered on 09/16/18 11:25; Admin Dose 3 ML; Start 09/15/18 at 00:00 Albuterol/ Ipratropium (Duoneb) 3 ml Q6H RESP THERAPY HHN Last administered on 09/21/18 08:53; Admin Dose 3 ML; Start 09/15/18 at 02:00 Nitroglycerin (Nitroglycerin (Sl Tab) 0.4 Mg) 1 tab Q5M PRN SL ANGINA; Start 09/15/18 at 00:00 Piperacillin Sod/ Tazobactam Sod 50 ml @ 100 mls/hr Q6 IVPB Last administered on 09/21/18 12:21; Admin Dose 100 MLS/HR; Start 09/15/18 at 00:16 Atorvastatin Calcium (Lipitor) 80 mg HS PO Last administered on 09/20/18 20:22; Admin Dose 80 MG; Start 09/15/18 at 21:00 Miscellaneous Information 1 ea NOTE XX ; Start 09/16/18 at 12:00 Glucose (Glutose) 15 gm Q15M PRN PO DECREASED GLUCOSE; Start 09/16/18 at 12:00 Glucose (Glutose) 22.5 gm Q15M PRN PO DECREASED GLUCOSE; Start 09/16/18 at 12:00 Dextrose (D50w Syringe) 25 ml Q15M PRN IV DECREASED GLUCOSE; Start 09/16/18 at 12:00 Dextrose (D50w Syringe) 50 ml Q15M PRN IV DECREASED GLUCOSE; Start 09/16/18 at 12:00 Glucagon (Glucagen) 1 mg Q15M PRN IM DECREASED GLUCOSE; Start 09/16/18 at 12:00 Glucose (Glutose) 15 gm Q15M PRN BUCCAL DECREASED GLUCOSE; Start 09/16/18 at 12:00 Furosemide (Lasix) 40 mg BID DIURETICS IV Last administered on 09/21/18 05:08; Admin Dose 40 MG; Start 09/18/18 at 07:30 Lisinopril (Zestril) 5 mg BID PO Last administered on 09/21/18 08:13; Admin Dose 5 MG; Start 09/19/18 at 21:00 Spironolactone (Aldactone) 25 mg DAILY PO Last administered on 09/21/18at 08:11; Admin Dose 25 MG; Start 09/19/18 at 17:30 Enalaprilat (Vasotec Iv) 0.625 mg Q6H PRN IV ELEVATED SYSTOLIC BP Last administered on 09/20/18at 09:03; Admin Dose 0.625 MG; Start 09/20/18 at 00:00 Insulin Aspart (Novolog Insulin Pen) (Adult SC Insulin - Mild Algorithm)... AC MEALS AND BEDTIME SC Last administered on 09/21/18at 12:31; Admin Dose 2 UNIT; Start 09/20/18 at 17:30 Diagnostic Test (Pha) (Accu-Chek) 1 ea 02 XX Last administered on 09/21/18at 01: 38; Admin Dose 1 EA; Start 09/21/18 at 02:00 Diltiazem HCl (Cardizem Iv) 10 mg Q1H PRN IV ELEVATED HEART RATE Last administered on 09/21/18at 09:18; Admin Dose 10 MG; Start 09/21/18 at 02:00 Apixaban (Eliquis) 5 mg BID PO ; Start 09/21/18 at 21:00 Amiodarone HCl 900 mg/Dextrose 500 ml @ 0 mls/hr Q0M IV Last administered on 09/21/18at 11:08; Admin Dose 33.4 MLS/HR; Start 09/21/18 at 10:00; Stop 09/22/18 at 09:59 Metoprolol Tartrate (Lopressor) 25 mg BID PO ; Start 09/21/18 at 14:00 BETTYE CASTANON Sep 21, 2018 13:26
[2018-09-21] MEDS ORDERED: METOPROLOL 25 MG TAB PO SCH (14:00)
[2018-09-21] MEDS: METOPROLOL 25 MG TAB PO SCH ×2 (15:04→20:46)
[2018-09-21] MEDS ORDERED: BISACODYL (EC) 5 MG TAB PO PRN (16:00)
[2018-09-21] MEDS: ATORVASTATIN 80 MG TAB PO SCH (20:38)
[2018-09-21] MEDS: APIXABAN 5 MG TABLET PO SCH (20:43)
[2018-09-21] MEDS: HYDROCODONE/APAP (5/325) TAB PO PRN (23:33)
[2018-09-22] VITALS (13 sets, daily range): BP systolic 109–134; BP diastolic 63–73; PULSE 72–120; RESP 18–20
[2018-09-22] MEDS: ZOLPIDEM 5 MG TAB PO PRN (01:04)
[2018-09-22] MEDS: ACCUCHECK AT 2AM (Patients on SS coverage) XX SCH (01:20)
[2018-09-22] MEDS: ALBUTEROL/IPRATROPIUM (NEB) 3 ML AMP HHN SCH ×4 (02:00→22:06)
[2018-09-22] MEDS: PIPER-TAZO 2.25 GM/NS 50 ML IVPB SCH ×5 (05:22→23:53)
[2018-09-22] MEDS: FUROSEMIDE 40 MG INJ IV SCH ×2 (05:25→18:25)
[2018-09-22] MEDS: BUDESONIDE (NEB) 0.5MG/2ML AMP HHN SCH ×2 (07:34→22:00)
[2018-09-22] MEDS: Insulin NOVOLOG SS MILD Algorithm (SS with meals and bedtime) SC SCH ×4 (08:16→20:56)
[2018-09-22] MEDS: SPIRONOLACTONE 25 MG TAB PO SCH (08:59)
[2018-09-22] MEDS: ASPIRIN 81 MG TAB PO SCH (08:59)
[2018-09-22] MEDS: LISINOPRIL 5 MG TAB PO SCH ×2 (08:59→20:58)
[2018-09-22] MEDS: APIXABAN 5 MG TABLET PO SCH ×2 (08:59→20:57)
[2018-09-22] MEDS: METOPROLOL 25 MG TAB PO SCH (09:00)
[2018-09-22] MEDS ORDERED: MAGNESIUM OXIDE 400 MG TAB PO ONE (11:30)
--- NOTE | 2018-09-22 11:35 | PN ---
Date/Time of Note Date/Time of Note DATE: 09/22/18 TIME: 11:35 Objective Vitals Vital Signs Date Temp Pulse Resp B/P (MAP) Pulse Ox O2 O2 Flow FiO2 Time Delivery Rate 09/22/18 98.3 73 18 109/63 97 11:30 (78) 09/22/18 Nasal 2.0 09:49 Cannula 09/20/18 40 11:15 Intake and Output 09/21/18 09/21/18 09/22/18 1515:00 23:00 07:00 IntakeIntake Total 350 ml OutputOutput Total 1100 ml BalanceBalance -750 ml Results Result Diagram: 09/22/188 09/22/18447 Medications Medications Current Medications IV Flush (NS 3 ml) 3 ml PER PROTOCOL IV ; Start 09/14/18 at 19:30 Ondansetron HCl (Zofran Inj) 4 mg Q6H PRN IV NAUSEA/VOMITING; Start 09/14/18 at 19:30 Acetaminophen (Tylenol Tab) 650 mg Q6H PRN PO .PAIN 1-3 OR TEMP; Start 09/14/18 at 19:30 Acetaminophen/ Hydrocodone Bitart ([place] (5/325)) 1 tab Q6H PRN PO .MOD PAIN 4- 6 Last administered on 09/21/18 23:33; Admin Dose 1 TAB; Start 09/14/18 at 19:30 Morphine Sulfate (morphine) 2 mg Q4H PRN IV .SEVERE PAIN 7-10 Last administered on 09/17/18 13:38; Admin Dose 2 MG; Start 09/14/18 at 19:30 Docusate Sodium (Colace) 100 mg Q12H PRN PO .CONSTIPATION Last administered on 09/21/18 08:12; Admin Dose 100 MG; Start 09/14/18 at 19:30 Zolpidem Tartrate (Ambien) 5 mg QHS PRN PO .INSOMNIA Last administered on 09/22/18 01:04; Admin Dose 5 MG; Start 09/14/18 at 19:30 Aspirin (Aspirin) 81 mg DAILY PO Last administered on 09/22/18 08:59; Admin Dose 81 MG; Start 09/15/18 at 09:00 Budesonide (Pulmicort (Neb)) 0.5 mg BID RESP THERAPY HHN Last administered on 09/22/18 07:34; Admin Dose 0.5 MG; Start 09/15/18 at 09:00 Albuterol/ Ipratropium (Duoneb) 3 ml Q2H RESP THERAPY PRN HHN shortness of breath Last administered on 09/16/18 11:25; Admin Dose 3 ML; Start 09/15/18 at 00:00 Albuterol/ Ipratropium (Duoneb) 3 ml Q6H RESP THERAPY HHN Last administered on 09/22/18 07:34; Admin Dose 3 ML; Start 09/15/18 at 02:00 Nitroglycerin (Nitroglycerin (Sl Tab) 0.4 Mg) 1 tab Q5M PRN SL ANGINA; Start 09/15/18 at 00:00 Piperacillin Sod/ Tazobactam Sod 50 ml @ 100 mls/hr Q6 IVPB Last administered on 09/22/18 05:22; Admin Dose 100 MLS/HR; Start 09/15/18 at 00:16 Atorvastatin Calcium (Lipitor) 80 mg HS PO Last administered on 09/21/18 20:38; Admin Dose 80 MG; Start 09/15/18 at 21:00 Miscellaneous Information 1 ea NOTE XX ; Start 09/16/18 at 12:00 Glucose (Glutose) 15 gm Q15M PRN PO DECREASED GLUCOSE; Start 09/16/18 at 12:00 Glucose (Glutose) 22.5 gm Q15M PRN PO DECREASED GLUCOSE; Start 09/16/18 at 12:00 Dextrose (D50w Syringe) 25 ml Q15M PRN IV DECREASED GLUCOSE; Start 09/16/18 at 12:00 Dextrose (D50w Syringe) 50 ml Q15M PRN IV DECREASED GLUCOSE; Start 09/16/18 at 12:00 Glucagon (Glucagen) 1 mg Q15M PRN IM DECREASED GLUCOSE; Start 09/16/18 at 12:00 Glucose (Glutose) 15 gm Q15M PRN BUCCAL DECREASED GLUCOSE; Start 09/16/18 at 12:00 Furosemide (Lasix) 40 mg BID DIURETICS IV Last administered on 09/22/18 05:25; Admin Dose 40 MG; Start 09/18/18 at 07:30 Lisinopril (Zestril) 5 mg BID PO Last administered on 09/22/18 08:59; Admin Dose 5 MG; Start 09/19/18 at 21:00 Spironolactone (Aldactone) 25 mg DAILY PO Last administered on 09/22/18 08:59; Admin Dose 25 MG; Start 09/19/18 at 17:30 Enalaprilat (Vasotec Iv) 0.625 mg Q6H PRN IV ELEVATED SYSTOLIC BP Last administered on 09/20/18 09:03; Admin Dose 0.625 MG; Start 09/20/18 at 00:00 Insulin Aspart (Novolog Insulin Pen) (Adult SC Insulin - Mild Algorithm)... AC MEALS AND BEDTIME SC Last administered on 09/22/18 08:16; Admin Dose 1 UNIT; Start 09/20/18 at 17:30 Diagnostic Test (Pha) (Accu-Chek) 1 ea 02 XX Last administered on 09/22/18 01:20; Admin Dose 1 EA; Start 09/21/18 at 02:00 Diltiazem HCl (Cardizem Iv) 10 mg Q1H PRN IV ELEVATED HEART RATE Last administered on 09/21/18 09:18; Admin Dose 10 MG; Start 09/21/18 at 02:00 Apixaban (Eliquis) 5 mg BID PO Last administered on 09/22/18 08:59; Admin Dose 5 MG; Start 09/21/18 at 21:00 Metoprolol Tartrate (Lopressor) 25 mg BID PO Last administered on 09/22/18 09:00; Admin Dose 25 MG; Start 09/21/18 at 14:00 Bisacodyl (Dulcolax) 10 mg DAILY PRN PO CONSTIPATION Last administered on 09/21/18 20:42; Admin Dose 10 MG; Start 09/21/18 at 16:00 Potassium Chloride (Klor-Con 20) 40 meq Q4H PO ; Start 09/22/18 at 11:30; Stop 09/22/18 at 15:31; Status UNV Magnesium Oxide (Mag-Ox 400) 400 mg ONCE ONCE PO ; Start 09/22/18 at 11:30; Stop 09/22/18 at 11:31; Status UNV VTE Prophylaxis Risk score (from Nsg)>0 risk: 6 SCD applied (from Nsg): Yes Lines/Catheters IV Catheter Type: Rebollar in Place: No Assessment/Plan Hospital Course Subjective -No acute complaints, patient son at bedside, answered questions Objective Physical exam General: Patient is laying in bed and answers questions appropriately Mentation: Patient is alert and oriented somewhat, but baseline Head: Normocephalic atraumatic Eyes: EOMI, pupils reactive to light Neck: Supple, nontender, midline Respiratory: Clear to auscultation bilaterally Cardiovascular: regular rate, no obvious murmurs Gastrointestinal: non-tender to palpation, bowel sounds heard. Neurological: Moves all extremities spontaneously Skin: No new skin lesions Assessment/Plan 1. Acute hypoxic respiratory failure- improving - Patient weaned off high flow and tolerating NC well. Saturations >90% on 2L - Pulm on board and appreciate recommendations - Cardiology on board and continuing aggressive diuresis 2. A. fib with RVR - patient back in afib recently and Cardiology aware - Given extra dose of Cardizem and will monitor HR 3. Sepsis secondary to UTI and/or pneumonia- stable - Continue IV antibiotics and final cultures noted - On Zosyn day 7. Remains afebrile and WBC nl 4. NSTEMI - s/p LHC on 09/16 that showed triple vessel disease - CT surgery input appreciated and not recommending surgical intervention due to high risk. Family also opting not to proceed with surgical intervention - will continue aggressive medical management per Cardiology recommendations 5. Diabetes - A1c noted - ISS and accuchecks 6. HTN - BP stable 7. Normocytic anemia likely secondary chronic disease - Monitor - no need for transfusion at this time 8. Disposition - Patient Will need HR better controlled prior to d/c - PT ordered for discharge planning - Continue diuresing per Cardiology recommendations ALEX HYLTON Sep 22, 2018 11:35
[2018-09-22] MEDS: POTASSIUM CHLORIDE (SR) 20 MEQ TAB PO SCH ×2 (12:44→16:46)
--- NOTE | 2018-09-22 14:08 | CONS ---
Consult Date/Type/Reason Admit Date/Time Sep 14, 2018 at 17:13 Initial Consult Date 09/15/18 Type of Consult Pulmonary Requesting Provider: HAYLEY ARREDONDO Date/Time of Note DATE: 09/22/18 TIME: 14:05 Subjective Patient stable. No new events continues to improve. Still has limited mobility. Objective Vital Signs Date Temp Pulse Resp B/P (MAP) Pulse Ox O2 O2 Flow FiO2 Time Delivery Rate 09/22/18 76 13:49 09/22/18 98.3 18 109/63 97 11:30 (78) 09/22/18 Nasal 2.0 09:49 Cannula 09/20/18 40 11:15 Intake and Output 09/21/18 09/21/18 09/22/18 1515:00 23:00 07:00 IntakeIntake Total 350 ml OutputOutput Total 1100 ml BalanceBalance -750 ml Exam Elderly lady comfortable at rest GENERAL: VITAL SIGNS: per chart NECK: Supple. No JVD or lymphadenopathy. CARDIAC EXAM: S1, S2. No added sounds or murmurs. CHEST: Diminished bilaterally ABDOMEN: Soft, nontender. No guarding or rebound. EXTREMITIES: No cyanosis, clubbing or edema. NEUROLOGIC: Generalized weakness. No focal deficits. Vent Setting Fraction of Inspired Oxygen pe: 40 Results/Medications Result Diagram: 09/22/1844709/22/18447 Results 24 hrs Laboratory Tests Test 09/21/18 17:48 09/21/18 20:15 09/22/18 01:09 09/22/18 04:48 Bedside Glucose 231 H 216 169 White Blood Count 9.3 Red Blood Count 3.46 L Hemoglobin 10.9 L Hematocrit 34.3 L Mean Corpuscular 99.1 Volume Mean Corpuscular 31.5 Hemoglobin Mean Corpuscular 31.8 L Hemoglobin Concent Red Cell 13.2 Distribution Width Platelet Count 238 Mean Platelet Volume 9.7 Immature 1.500 H Granulocytes % Neutrophils % 71.6 Lymphocytes % 15.4 Monocytes % 9.0 Eosinophils % 2.1 Basophils % 0.4 Nucleated Red Blood 0.0 Cells % Immature 0.140 H Granulocytes # Neutrophils # 6.6 Lymphocytes # 1.4 Monocytes # 0.8 Eosinophils # 0.2 Basophils # 0.0 Nucleated Red Blood 0.0 Cells # Sodium Level 142 Potassium Level 3.2 L Chloride Level 94 L Carbon Dioxide Level 37 H Anion Gap 11 Blood Urea Nitrogen 34 H Creatinine 1.27 H Est Glomerular Filtrat Rate mL/min Glucose Level 164 Calcium Level 9.1 Magnesium Level 1.9 Total Bilirubin 0.5 Direct Bilirubin 0.00 Indirect Bilirubin 0.5 Aspartate Amino 46 Transf (AST/SGOT) Alanine 321 H Aminotransferase (AL T/SGPT) Alkaline Phosphatase 118 Total Protein 7.2 Albumin 3.2 L Globulin 4.00 H Albumin/Globulin 0.80 Ratio Test 09/22/18 08:10 09/22/18 11:54 Bedside Glucose 165 197 Medications Current Medications IV Flush (NS 3 ml) 3 ml PER PROTOCOL IV ; Start 09/14/18 at 19:30 Ondansetron HCl (Zofran Inj) 4 mg Q6H PRN IV NAUSEA/VOMITING; Start 09/14/18 at 19:30 Acetaminophen (Tylenol Tab) 650 mg Q6H PRN PO .PAIN 1-3 OR TEMP; Start 09/14/18 at 19:30 Acetaminophen/ Hydrocodone Bitart ([place] (5/325)) 1 tab Q6H PRN PO .MOD PAIN 4- 6 Last administered on 09/21/18 23:33; Admin Dose 1 TAB; Start 09/14/18 at 19:30 Morphine Sulfate (morphine) 2 mg Q4H PRN IV .SEVERE PAIN 7-10 Last administered on 09/17/18 13:38; Admin Dose 2 MG; Start 09/14/18 at 19:30 Docusate Sodium (Colace) 100 mg Q12H PRN PO .CONSTIPATION Last administered on 09/21/18 08:12; Admin Dose 100 MG; Start 09/14/18 at 19:30 Zolpidem Tartrate (Ambien) 5 mg QHS PRN PO .INSOMNIA Last administered on 09/22/18 01:04; Admin Dose 5 MG; Start 09/14/18 at 19:30 Aspirin (Aspirin) 81 mg DAILY PO Last administered on 09/22/18 08:59; Admin Dose 81 MG; Start 09/15/18 at 09:00 Budesonide (Pulmicort (Neb)) 0.5 mg BID RESP THERAPY HHN Last administered on 09/22/18 07:34; Admin Dose 0.5 MG; Start 09/15/18 at 09:00 Albuterol/ Ipratropium (Duoneb) 3 ml Q2H RESP THERAPY PRN HHN shortness of breath Last administered on 09/16/18 11:25; Admin Dose 3 ML; Start 09/15/18 at 00:00 Albuterol/ Ipratropium (Duoneb) 3 ml Q6H RESP THERAPY HHN Last administered on 09/22/18 07:34; Admin Dose 3 ML; Start 09/15/18 at 02:00 Nitroglycerin (Nitroglycerin (Sl Tab) 0.4 Mg) 1 tab Q5M PRN SL ANGINA; Start 09/15/18 at 00:00 Piperacillin Sod/ Tazobactam Sod 50 ml @ 100 mls/hr Q6 IVPB Last administered on 09/22/18 12:44; Admin Dose 100 MLS/HR; Start 09/15/18 at 00:16 Atorvastatin Calcium (Lipitor) 80 mg HS PO Last administered on 09/21/18 20:3 8; Admin Dose 80 MG; Start 09/15/18 at 21:00 Miscellaneous Information 1 ea NOTE XX ; Start 09/16/18 at 12:00 Glucose (Glutose) 15 gm Q15M PRN PO DECREASED GLUCOSE; Start 09/16/18 at 12:00 Glucose (Glutose) 22.5 gm Q15M PRN PO DECREASED GLUCOSE; Start 09/16/18 at 12:00 Dextrose (D50w Syringe) 25 ml Q15M PRN IV DECREASED GLUCOSE; Start 09/16/18 at 12:00 Dextrose (D50w Syringe) 50 ml Q15M PRN IV DECREASED GLUCOSE; Start 09/16/18 at 12:00 Glucagon (Glucagen) 1 mg Q15M PRN IM DECREASED GLUCOSE; Start 09/16/18 at 12:00 Glucose (Glutose) 15 gm Q15M PRN BUCCAL DECREASED GLUCOSE; Start 09/16/18 at 12:00 Furosemide (Lasix) 40 mg BID DIURETICS IV Last administered on 09/22/18 05:25; Admin Dose 40 MG; Start 09/18/18 at 07:30 Lisinopril (Zestril) 5 mg BID PO Last administered on 09/22/18 08:59; Admin Dose 5 MG; Start 09/19/18 at 21:00 Spironolactone (Aldactone) 25 mg DAILY PO Last administered on 09/22/18 08:59; Admin Dose 25 MG; Start 09/19/18 at 17:30 Enalaprilat (Vasotec Iv) 0.625 mg Q6H PRN IV ELEVATED SYSTOLIC BP Last administered on 09/20/18 09:03; Admin Dose 0.625 MG; Start 09/20/18 at 00:00 Insulin Aspart (Novolog Insulin Pen) (Adult SC Insulin - Mild Algorithm)... AC MEALS AND BEDTIME SC Last administered on 09/22/18 11:59; Admin Dose 2 UNIT; Start 09/20/18 at 17:30 Diagnostic Test (Pha) (Accu-Chek) 1 ea 02 XX Last administered on 09/22/18 01:20; Admin Dose 1 EA; Start 09/21/18 at 02:00 Diltiazem HCl (Cardizem Iv) 10 mg Q1H PRN IV ELEVATED HEART RATE Last ad ministered on 09/21/18 09:18; Admin Dose 10 MG; Start 09/21/18 at 02:00 Apixaban (Eliquis) 5 mg BID PO Last administered on 09/22/18 08:59; Admin Dose 5 MG; Start 09/21/18 at 21:00 Metoprolol Tartrate (Lopressor) 25 mg BID PO Last administered on 09/22/18 09:00; Admin Dose 25 MG; Start 09/21/18 at 14:00 Bisacodyl (Dulcolax) 10 mg DAILY PRN PO CONSTIPATION Last administered on 09/21/18 20:42; Admin Dose 10 MG; Start 09/21/18 at 16:00 Potassium Chloride (Klor-Con 20) 40 meq Q4H PO Last administered on 09/22/18 12:44; Admin Dose 40 MEQ; Start 09/22/18 at 11:30; Stop 09/22/18 at 15:31 Assessment/Plan Hospital Course (Demo Recall) IMPRESSION 1. Status post septic shock, likely secondary to urinary tract infection. 2. Possible community-acquired pneumonia. 3. Pulmonary edema with acute hypoxemic respiratory failure. Progressive hypoxemia secondary to pulmonary edema, slowly improving. 4. Renal insufficiency, likely acute tubular necrosis injury. 5. Non-ST elevation ND, ischemic cardia myopathy with severe aortic stenosis status post cardiac cath PLAN: 1. Continue broad-spectrum antibiotics. 2. Decrease IV fluids IV diuresis 3. Cardiac recs 4. decrease o2 as tolerated 5. DVT and GI prophylaxis. 6. PT eval. ARU eval. ALEN FLORES MD, [facility] Sep 22, 2018 14:08
--- NOTE | 2018-09-22 16:14 | CONS ---
Consult Date/Type/Reason Admit Date/Time Sep 14, 2018 at 17:13 Initial Consult Date 09/15/18 Type of Consultation: cv Requesting Provider: HAYLEY ARREDONDO Date/Time of Note DATE: 09/22/18 TIME: 16:12 Subjective Interventional cardiology follow-up progress note Subjective: Case discussed with staff. D/W SON and daughter Telemetry was reviewed. pt is in his normal sinus rhythm but has had frequent episodes of atrial fibrillation with RVR. Was mostly showed episodes No bleeding is reported no report of chest pain or pressure pt with less hypoxemia. off BIPAP Patient has complained that she does not feel that she could not explain well. Appears to be complaining of being anxious and feeling " hot all over the body" Objective: General: Elderly female. Appears older than stated age with respiratory distress on BiPAP now HEENT: NC/AT. pupils are equal. round. NECK: NO JVD. no stridor. CV: Irregularly irregular . systolic murmur; no gallop or rubs. PULM: no wheezing + rhonchi. GI: SOFT, NT, ND, no rebound or guarding Extremity: trace B/L LE edema. no clubbing. neuro: Awake and alert. Psych: calm and pleasant rectal: deferred X-ray done 09/14/2018 shows:Cardiomegaly, with increased mild failure. CXR 09/16: Cardiomegaly with mild pulmonary edema and small pleural effusions.Calcified atherosclerosis of the thoracic aorta. Chest x-ray done 09/17/2018 shows: Stable cardiomegaly and vascular congestion with persistent left pleural effusion. Superimposed infection cannot be excluded. . EKG was personally reviewed which shows: Atrial fibrillation/junctional rhythm with left bundle branch block Echocardiogram was personally reviewed shows: Moderate left ventricular systolic dysfunction. Ejection fraction is visually estimated at 30-35 %. Tissue Doppler/Mitral Doppler indices are consistent with restrictive physiology with markedly elevated left atrial pressure (Stage III-IV diastolic dysfunction). Multiple segmental wall motion abnormalities. There is moderate enlargement of left atrium. There is mild enlargement of right atrium. Moderate mitral leaflet calcification. Moderate mitral annular calcification. Moderate to severe mitral valve regurgitation. Aortic valve not well visualized. Moderate to severe aortic stenosis however due to low cardiac output severity of aortic stenosis is underestimated. Aortic valve area 0.90 cm2. Mild to moderate aortic valve regurgitation. Normal appearance of the tricuspid valve. There is moderate tricuspid regurgitation. Dilated inferior vena cava with poor inspiratory collapse consistent with elevated right atrial pressures. Objective Vitals Vital Signs Date Temp Pulse Resp B/P (MAP) Pulse Ox O2 O2 Flow FiO2 Time Delivery Rate 09/22/18 97.7 85 18 130/71 97 15:39 (90) 09/22/18 Nasal 2.0 09:49 Cannula 09/20/18 40 11:15 Intake and Output 09/21/18 09/21/18 09/22/18 1515:00 23:00 07:00 IntakeIntake Total 350 ml OutputOutput Total 1100 ml BalanceBalance -750 ml Results/Medications Result Diagram: 09/22/18 0448 09/22/18 0448 Results 24 hrs Laboratory Tests Test 09/21/18 17:48 09/21/18 20:15 09/22/18 01:09 09/22/18 04:48 Bedside Glucose 231 H 216 169 White Blood Count 9.3 Red Blood Count 3.46 L Hemoglobin 10.9 L Hematocrit 34.3 L Mean Corpuscular 99.1 Volume Mean Corpuscular 31.5 Hemoglobin Mean Corpuscular 31.8 L Hemoglobin Concent Red Cell 13.2 Distribution Width Platelet Count 238 Mean Platelet Volume 9.7 Immature 1.500 H Granulocytes % Neutrophils % 71.6 Lymphocytes % 15.4 Monocytes % 9.0 Eosinophils % 2.1 Basophils % 0.4 Nucleated Red Blood 0.0 Cells % Immature 0.140 H Granulocytes # Neutrophils # 6.6 Lymphocytes # 1.4 Monocytes # 0.8 Eosinophils # 0.2 Basophils # 0.0 Nucleated Red Blood 0.0 Cells # Sodium Level 142 Potassium Level 3.2 L Chloride Level 94 L Carbon Dioxide Level 37 H Anion Gap 11 Blood Urea Nitrogen 34 H Creatinine 1.27 H Est Glomerular Filtrat Rate mL/min Glucose Level 164 Calcium Level 9.1 Magnesium Level 1.9 Total Bilirubin 0.5 Direct Bilirubin 0.00 Indirect Bilirubin 0.5 Aspartate Amino 46 Transf (AST/SGOT) Alanine 321 H Aminotransferase (AL T/SGPT) Alkaline Phosphatase 118 Total Protein 7.2 Albumin 3.2 L Globulin 4.00 H Albumin/Globulin 0.80 Ratio Test 09/22/18 08:10 09/22/18 11:54 Bedside Glucose 165 197 Home Meds Reported Medications Rosiglitazone Maleate* (Avandia*) 8 Mg Tablet 10/25/10 Cyclobenzaprine Hcl* (Cyclobenzaprine Hcl*) 10 Mg Tablet 10/25/10 Diclofenac Sodium* (Voltaren*) 25 Mg Tablet. 10/25/10 Carvedilol* (Carvedilol*) 25 Mg Tablet 10/25/10 Valsartan* (Diovan*) 80 Mg Tablet 10/25/10 Simvastatin* (Zocor*) 20 Mg Tablet 10/25/10 Folic Acid* (Folic Acid*) 1 Mg Tablet 10/25/10 Metformin Hcl* (Metformin Hcl*) 1,000 Mg Tablet 10/25/10 Nifedipine (Nifedipine XL) 30 Mg/Bottle Tab.osm.24 10/25/10 Aspirin (Aspirin) 81 Mg Tablet 10/25/10 Nifedipine* (Nifedipine ER*) 60 Mg Tablet.sa 10/25/10 Medications Current Medications IV Flush (NS 3 ml) 3 ml PER PROTOCOL IV ; Start 09/14/18 at 19:30 Ondansetron HCl (Zofran Inj) 4 mg Q6H PRN IV NAUSEA/VOMITING; Start 09/14/18 at 19:30 Acetaminophen (Tylenol Tab) 650 mg Q6H PRN PO .PAIN 1-3 OR TEMP; Start 09/14/18 at 19:30 Acetaminophen/ Hydrocodone Bitart ([place] (5/325)) 1 tab Q6H PRN PO .MOD PAIN 4- 6 Last administered on 09/21/18 23:33; Admin Dose 1 TAB; Start 09/14/18 at 19:30 Morphine Sulfate (morphine) 2 mg Q4H PRN IV .SEVERE PAIN 7-10 Last administered on 09/17/18 13:38; Admin Dose 2 MG; Start 09/14/18 at 19:30 Docusate Sodium (Colace) 100 mg Q12H PRN PO .CONSTIPATION Last administered on 09/21/18 08:12; Admin Dose 100 MG; Start 09/14/18 at 19:30 Zolpidem Tartrate (Ambien) 5 mg QHS PRN PO .INSOMNIA Last administered on 09/22/18 01:04; Admin Dose 5 MG; Start 09/14/18 at 19:30 Aspirin (Aspirin) 81 mg DAILY PO Last administered on 09/22/18 08:59; Admin Dose 81 MG; Start 09/15/18 at 09:00 Budesonide (Pulmicort (Neb)) 0.5 mg BID RESP THERAPY HHN Last administered on 09/22/18at 07:34; Admin Dose 0.5 MG; Start 09/15/18 at 09:00 Albuterol/ Ipratropium (Duoneb) 3 ml Q2H RESP THERAPY PRN HHN shortness of breath Last administered on 09/16/18 11:25; Admin Dose 3 ML; Start 09/15/18 at 00:00 Albuterol/ Ipratropium (Duoneb) 3 ml Q6H RESP THERAPY HHN Last administered on 09/22/18 14:30; Admin Dose 3 ML; Start 09/15/18 at 02:00 Nitroglycerin (Nitroglycerin (Sl Tab) 0.4 Mg) 1 tab Q5M PRN SL ANGINA; Start 09/15/18 at 00:00 Piperacillin Sod/ Tazobactam Sod 50 ml @ 100 mls/hr Q6 IVPB Last administered on 09/22/18at 12:44; Admin Dose 100 MLS/HR; Start 09/15/18 at 00:16 Atorvastatin Calcium (Lipitor) 80 mg HS PO Last administered on 09/21/18at 20:38; Admin Dose 80 MG; Start 09/15/18 at 21:00 Miscellaneous Information 1 ea NOTE XX ; Start 09/16/18 at 12:00 Glucose (Glutose) 15 gm Q15M PRN PO DECREASED GLUCOSE; Start 09/16/18 at 12:00 Glucose (Glutose) 22.5 gm Q15M PRN PO DECREASED GLUCOSE; Start 09/16/18 at 12:00 Dextrose (D50w Syringe) 25 ml Q15M PRN IV DECREASED GLUCOSE; Start 09/16/18 at 12:00 Dextrose (D50w Syringe) 50 ml Q15M PRN IV DECREASED GLUCOSE; Start 09/16/18 at 12:00 Glucagon (Glucagen) 1 mg Q15M PRN IM DECREASED GLUCOSE; Start 09/16/18 at 12:00 Glucose (Glutose) 15 gm Q15M PRN BUCCAL DECREASED GLUCOSE; Start 09/16/18 at 12:00 Furosemide (Lasix) 40 mg BID DIURETICS IV Last administered on 09/22/18 05:25 ; Admin Dose 40 MG; Start 09/18/18 at 07:30 Lisinopril (Zestril) 5 mg BID PO Last administered on 09/22/18 08:59; Admin Dose 5 MG; Start 09/19/18 at 21:00 Spironolactone (Aldactone) 25 mg DAILY PO Last administered on 09/22/18 08:59; Admin Dose 25 MG; Start 09/19/18 at 17:30 Enalaprilat (Vasotec Iv) 0.625 mg Q6H PRN IV ELEVATED SYSTOLIC BP Last administered on 09/20/18 09:03; Admin Dose 0.625 MG; Start 09/20/18 at 00:00 Insulin Aspart (Novolog Insulin Pen) (Adult SC Insulin - Mild Algorithm)... AC MEALS AND BEDTIME SC Last administered on 09/22/18 11:59; Admin Dose 2 UNIT; Start 09/20/18 at 17:30 Diagnostic Test (Pha) (Accu-Chek) 1 ea 02 XX Last administered on 09/22/18 01:20; Admin Dose 1 EA; Start 09/21/18 at 02:00 Diltiazem HCl (Cardizem Iv) 10 mg Q1H PRN IV ELEVATED HEART RATE Last administered on 09/21/18 09:18; Admin Dose 10 MG; Start 09/21/18 at 02:00 Apixaban (Eliquis) 5 mg BID PO Last administered on 09/22/18 08:59; Admin Dose 5 MG; Start 09/21/18 at 21:00 Metoprolol Tartrate (Lopressor) 25 mg BID PO Last administered on 09/22/18 09:00; Admin Dose 25 MG; Start 09/21/18 at 14:00 Bisacodyl (Dulcolax) 10 mg DAILY PRN PO CONSTIPATION Last administered on 09/21 20:42; Admin Dose 10 MG; Start 09/21/18 at 16:00 Assessment/Plan Hospital Course (Demo Recall) 1. 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 Congestive heart failure appears acute secondary systolic heart failure 3. Sepsis and shock 4. Arrhythmias with proximal atrial fibrillation /junctional rhythm 5. Severe cardiomyopathy ischemic 6/ DM 7. HX HTN now hypotensive and shock 8. UTI 9. ? pneumonia 10. Acute renal failure 11. Anemia 12. Valvular heart disease 13. Transaminitis/liver failure: Probably related to hepatic congestion Recommendations: Continue with Eliquis . Antibiotic management as internal medicine. Blood cultures are negative so far Respiratory care will be continued. O2 and BiPAP as needed Diabetic control as per internal medicine. Insulin. CT surgery input is appreciated. We will try to aggressively diurese her as much as possible replace electrolyte as needed Continue with Aldactone and lisinopril Will change the metoprolol to Toprol-XL Thank you for his referral. We will continue to follow along with you LUIS A AGUILERA MD [facility] LUIS A AGUILERA MD Sep 22, 2018 16:14
--- NOTE | 2018-09-22 16:28 | CONS ---
Assessment/Plan Assessment/Plan Assessment/Plan (Daily) 1. acute Renal failure 2/2 Hemodynamics from CHF 2. acute CHF, possibly systolic with low EF 3. atrial fibrillation with RVR 5. septich shock possibly due to UTI 6. UTI with Urine cx growing Group B streptoccoci 7. Acute NSTEMI s/p LHC on 09/15/18 that showed multivessel obstructive CAD 8. h/o HTN 9. H/o DM II 10. H/o HL 11. metabolic acidosis due to Septic shock + renal failure 12. atrial fibrillation with RVR Plan: BUN/Cr 34/1.27, K 3.2, K replacement ordered S/p LHC that showed multivessel obstructive CAD- s/p CT surgery evaluation, too high risk for surgery , family wants to wait, medical management for now amiodarone 200mg PO BID, Eliquis for anticoagulation IV abx zosyn for sepsis, renally dose all abx and monitor electrolytes will follow up Consultation Date/Type/Reason Admit Date/Time Sep 14, 2018 at 17:13 Initial Consult Date 09/15/18 Type of Consult NEPHROLOGY Requesting Provider: HAYLEY ARREDONDO Date/Time of Note DATE: 09/22/18 TIME: 16:28 Exam/Review of Systems Exam Vitals Vital Signs Date Temp Pulse Resp B/P (MAP) Pulse Ox O2 O2 Flow FiO2 Time Delivery Rate 09/22/18 97.7 85 18 130/71 97 15:39 (90) 09/22/18 Nasal 2.0 09:49 Cannula 09/20/18 40 11:15 Intake and Output 09/21/18 09/21/18 09/22/18 1515:00 23:00 07:00 IntakeIntake Total 350 ml OutputOutput Total 1100 ml BalanceBalance -750 ml Exam Constitutional: alert, awake Respiratory: Bibasilar crackles, no wheezing Cardiovascular: regular rate and rhythm, nl pulses Gastrointestinal: soft, non-tender Extremities: normal pulses Neurological: Non focal Lymph: nl lymph nodes Results Result Diagram: 09/22/18 0448 09/22/188 Results 24hrs Laboratory Tests Test 09/21/18 17:48 09/21/18 20:15 09/22/18 01:09 09/22/18 04:48 Bedside Glucose 231 H 216 169 White Blood Count 9.3 Red Blood Count 3.46 L Hemoglobin 10.9 L Hematocrit 34.3 L Mean Corpuscular 99.1 Volume Mean Corpuscular 31.5 Hemoglobin Mean Corpuscular 31.8 L Hemoglobin Concent Red Cell 13.2 Distribution Width Platelet Count 238 Mean Platelet Volume 9.7 Immature 1.500 H Granulocytes % Neutrophils % 71.6 Lymphocytes % 15.4 Monocytes % 9.0 Eosinophils % 2.1 Basophils % 0.4 Nucleated Red Blood 0.0 Cells % Immature 0.140 H Granulocytes # Neutrophils # 6.6 Lymphocytes # 1.4 Monocytes # 0.8 Eosinophils # 0.2 Basophils # 0.0 Nucleated Red Blood 0.0 Cells # Sodium Level 142 Potassium Level 3.2 L Chloride Level 94 L Carbon Dioxide Level 37 H Anion Gap 11 Blood Urea Nitrogen 34 H Creatinine 1.27 H Est Glomerular Filtrat Rate mL/min Glucose Level 164 Calcium Level 9.1 Magnesium Level 1.9 Total Bilirubin 0.5 Direct Bilirubin 0.00 Indirect Bilirubin 0.5 Aspartate Amino 46 Transf (AST/SGOT) Alanine 321 H Aminotransferase (AL T/SGPT) Alkaline Phosphatase 118 Total Protein 7.2 Albumin 3.2 L Globulin 4.00 H Albumin/Globulin 0.80 Ratio Test 09/22/18 08:10 09/22/18 11:54 Bedside Glucose 165 197 Medications Medication Current Medications IV Flush (NS 3 ml) 3 ml PER PROTOCOL IV ; Start 09/14/18 at 19:30 Ondansetron HCl (Zofran Inj) 4 mg Q6H PRN IV NAUSEA/VOMITING; Start 09/14/18 at 19:30 Acetaminophen (Tylenol Tab) 650 mg Q6H PRN PO .PAIN 1-3 OR TEMP; Start 09/14/18 at 19:30 Acetaminophen/ Hydrocodone Bitart ([place] (5/325)) 1 tab Q6H PRN PO .MOD PAIN 4- 6 Last administered on 09/21/18at 23:33; Admin Dose 1 TAB; Start 09/14/18 at 19:30 Morphine Sulfate (morphine) 2 mg Q4H PRN IV .SEVERE PAIN 7-10 Last administered on 09/17/18at 13:38; Admin Dose 2 MG; Start 09/14/18 at 19:30 Docusate Sodium (Colace) 100 mg Q12H PRN PO .CONSTIPATION Last administered on 2/24/19at 08:12; Admin Dose 100 MG; Start 09/14/18 at 19:30 Zolpidem Tartrate (Ambien) 5 mg QHS PRN PO .INSOMNIA Last administered on 09/22/18 01:04; Admin Dose 5 MG; Start 09/14/18 at 19:30 Aspirin (Aspirin) 81 mg DAILY PO Last administered on 09/22/18 08:59; Admin Dose 81 MG; Start 09/15/18 at 09:00 Budesonide (Pulmicort (Neb)) 0.5 mg BID RESP THERAPY HHN Last administered on 09/22/18 07:34; Admin Dose 0.5 MG; Start 09/15/18 at 09:00 Albuterol/ Ipratropium (Duoneb) 3 ml Q2H RESP THERAPY PRN HHN shortness of breath Last administered on 09/16/18 11:25; Admin Dose 3 ML; Start 09/15/18 at 00:00 Albuterol/ Ipratropium (Duoneb) 3 ml Q6H RESP THERAPY HHN Last administered on 09/22/18 14:30; Admin Dose 3 ML; Start 09/15/18 at 02:00 Nitroglycerin (Nitroglycerin (Sl Tab) 0.4 Mg) 1 tab Q5M PRN SL ANGINA; Start 09/15/18 at 00:00 Piperacillin Sod/ Tazobactam Sod 50 ml @ 100 mls/hr Q6 IVPB Last administered on 09/22/18 12:44; Admin Dose 100 MLS/HR; Start 09/15/18 at 00:16 Atorvastatin Calcium (Lipitor) 80 mg HS PO Last administered on 09/21/18 20:38; Admin Dose 80 MG; Start 09/15/18 at 21:00 Miscellaneous Information 1 ea NOTE XX ; Start 09/16/18 at 12:00 Glucose (Glutose) 15 gm Q15M PRN PO DECREASED GLUCOSE; Start 09/16/18 at 12:00 Glucose (Glutose) 22.5 gm Q15M PRN PO DECREASED GLUCOSE; Start 09/16/18 at 12:00 Dextrose (D50w Syringe) 25 ml Q15M PRN IV DECREASED GLUCOSE; Start 09/16/18 at 12:00 Dextrose (D50w Syringe) 50 ml Q15M PRN IV DECREASED GLUCOSE; Start 09/16/18 at 12:00 Glucagon (Glucagen) 1 mg Q15M PRN IM DECREASED GLUCOSE; Start 09/16/18 at 12:00 Glucose (Glutose) 15 gm Q15M PRN BUCCAL DECREASED GLUCOSE; Start 09/16/18 at 12:00 Furosemide (Lasix) 40 mg BID DIURETICS IV Last administered on 09/22/18 05:25; Admin Dose 40 MG; Start 09/18/18 at 07:30 Lisinopril (Zestril) 5 mg BID PO Last administered on 09/22/18 08:59; Admin Dose 5 MG; Start 09/19/18 at 21:00 Spironolactone (Aldactone) 25 mg DAILY PO Last administered on 09/22/18 08:59; Admin Dose 25 MG; Start 09/19/18 at 17:30 Enalaprilat (Vasotec Iv) 0.625 mg Q6H PRN IV ELEVATED SYSTOLIC BP Last administered on 09/20/18 09:03; Admin Dose 0.625 MG; Start 09/20/18 at 00:00 Insulin Aspart (Novolog Insulin Pen) (Adult SC Insulin - Mild Algorithm)... AC MEALS AND BEDTIME SC Last administered on 09/22/18 11:59; Admin Dose 2 UNIT; Start 09/20/18 at 17:30 Diagnostic Test (Pha) (Accu-Chek) 1 ea 02 XX Last administered on 09/22/18 01:20; Admin Dose 1 EA; Start 09/21/18 at 02:00 Diltiazem HCl (Cardizem Iv) 10 mg Q1H PRN IV ELEVATED HEART RATE Last administered on 09/21/18 09:18; Admin Dose 10 MG; Start 09/21/18 at 02:00 Apixaban (Eliquis) 5 mg BID PO Last administered on 09/22/18 08:59; Admin Dose 5 MG; Start 09/21/18 at 21:00 Bisacodyl (Dulcolax) 10 mg DAILY PRN PO CONSTIPATION Last administered on 09/21/18 20:42; Admin Dose 10 MG; Start 09/21/18 at 16:00 Magnesium Sulfate 50 ml @ 25 mls/hr ONCE ONCE IVPB ; Start 09/22/18 at 17:30; Stop 09/22/18 at 19:29 Metoprolol Succinate (Toprol Xl) 25 mg BID PO ; Start 09/22/18 at 21:00 BEKA HARPER MD Sep 22, 2018 16:28
[2018-09-22] MEDS: DILTIAZEM 25 MG INJ IV PRN (17:17)
[2018-09-22] MEDS ORDERED: MAGNESIUM SULFATE 2 GM/50 ML 50 ML IVPB ONE (17:30)
[2018-09-22] MEDS ORDERED: CARV6.25 PO (19:45)
[2018-09-22] MEDS ORDERED: FERR325T5 PO (19:45)
[2018-09-22] MEDS ORDERED: SACU1TAB7 PO (19:45)
[2018-09-22] MEDS ORDERED: SPIR25TA PO (19:45)
[2018-09-22] MEDS ORDERED: APIX2.5T PO (19:45)
[2018-09-22] MEDS ORDERED: FURO-109 PO (19:45)
[2018-09-22] MEDS ORDERED: OMEP20CA16 PO (19:45)
[2018-09-22] MEDS ORDERED: LEVO-86 PO (19:45)
[2018-09-22] MEDS ORDERED: ATOR10TA65 PO (19:45)
[2018-09-22] MEDS: ATORVASTATIN 80 MG TAB PO SCH (20:57)
[2018-09-22] MEDS: AMIODARONE 200 MG TAB PO SCH (20:57)
[2018-09-22] MEDS: METOPROLOL (XL) 25 MG TAB PO SCH (21:00)
[2018-09-23] VITALS (12 sets, daily range): BP systolic 91–124; BP diastolic 54–76; PULSE 58–124; RESP 18–22
[2018-09-23] MEDS: ACCUCHECK AT 2AM (Patients on SS coverage) XX SCH (02:00)
[2018-09-23] MEDS: ALBUTEROL/IPRATROPIUM (NEB) 3 ML AMP HHN SCH ×4 (02:14→20:36)
[2018-09-23] MEDS: PIPER-TAZO 2.25 GM/NS 50 ML IVPB SCH ×3 (05:20→17:02)
[2018-09-23] MEDS: FUROSEMIDE 40 MG INJ IV SCH ×2 (05:22→17:02)
[2018-09-23] MEDS: METOPROLOL (XL) 25 MG TAB PO SCH ×2 (05:22→20:43)
[2018-09-23] MEDS: Insulin NOVOLOG SS MILD Algorithm (SS with meals and bedtime) SC SCH ×4 (07:56→20:44)
[2018-09-23] MEDS: APIXABAN 5 MG TABLET PO SCH ×2 (08:20→20:44)
[2018-09-23] MEDS: AMIODARONE 200 MG TAB PO SCH ×2 (08:28→20:44)
[2018-09-23] MEDS: LISINOPRIL 5 MG TAB PO SCH ×2 (08:29→20:43)
[2018-09-23] MEDS: SPIRONOLACTONE 25 MG TAB PO SCH (08:29)
[2018-09-23] MEDS: BUDESONIDE (NEB) 0.5MG/2ML AMP HHN SCH ×2 (08:45→20:36)
--- NOTE | 2018-09-23 09:11 | CONS ---
Assessment/Plan Assessment/Plan Assessment/Plan (Daily) 1. acute Renal failure 2/2 Hemodynamics from CHF 2. acute CHF, possibly systolic with low EF 3. atrial fibrillation with RVR 5. septich shock possibly due to UTI 6. UTI with Urine cx growing Group B streptoccoci 7. Acute NSTEMI s/p LHC on 09/15/18 that showed multivessel obstructive CAD 8. h/o HTN 9. H/o DM II 10. H/o HL 11. metabolic acidosis due to Septic shock + renal failure 12. atrial fibrillation with RVR Plan: BUN/Cr 33/1.35, K 3.8, K replacement ordered S/p LHC that showed multivessel obstructive CAD- s/p CT surgery evaluation, too high risk for surgery , family wants to wait, medical management for now amiodarone 200mg PO BID, Eliquis for anticoagulation IV abx zosyn for sepsis, renally dose all abx and monitor electrolytes will follow up Consultation Date/Type/Reason Admit Date/Time Sep 14, 2018 at 17:13 Initial Consult Date 09/15/18 Type of Consult NEPHROLOGY Requesting Provider: HAYLEY ARREDONDO Date/Time of Note DATE: 09/23/18 TIME: 09:11 Exam/Review of Systems Exam Vitals Vital Signs Date Temp Pulse Resp B/P (MAP) Pulse Ox O2 O2 Flow FiO2 Time Delivery Rate 09/23/18 94 1.0 08:48 09/23/18 78 20 Nasal 08:45 Cannula 09/23/18 97.8 95/54 (68) 07:28 09/20/18 40 11:15 Intake and Output 09/22/18 09/22/18 09/23/18 1515:00 23:00 07:00 IntakeIntake Total 530 ml 450 ml OutputOutput Total 1100 ml 900 ml BalanceBalance -570 ml -450 ml Exam Constitutional: alert, awake Respiratory: Bibasilar crackles, no wheezing Cardiovascular: regular rate and rhythm, nl pulses Gastrointestinal: soft, non-tender Extremities: normal pulses Neurological: Non focal Lymph: nl lymph nodes Results Result Diagram: 09/23/18 0456 09/23/18 0457 Results 24hrs Laboratory Tests Test 09/22/18 11:54 09/22/18 17:18 09/22/18 20:55 09/23/18 04:56 Bedside Glucose 197 170 163 White Blood Count 9.0 Red Blood Count 3.64 L Hemoglobin 11.3 L Hematocrit 35.5 L Mean Corpuscular 97.5 Volume Mean Corpuscular 31.0 Hemoglobin Mean Corpuscular 31.8 L Hemoglobin Concent Red Cell 13.2 Distribution Width Platelet Count 236 Mean Platelet Volume 9.8 Immature 1.300 H Granulocytes % Neutrophils % 74.1 Lymphocytes % 15.3 Monocytes % 7.7 Eosinophils % 1.2 Basophils % 0.4 Nucleated Red Blood 0.0 Cells % Immature 0.120 H Granulocytes # Neutrophils # 6.7 Lymphocytes # 1.4 Monocytes # 0.7 Eosinophils # 0.1 Basophils # 0.0 Nucleated Red Blood 0.0 Cells # Test 09/23/18 04:57 09/23/18 07:41 Sodium Level 141 Potassium Level 3.8 Chloride Level 95 L Carbon Dioxide Level 35 H Anion Gap 11 Blood Urea Nitrogen 33 H Creatinine 1.35 H Est Glomerular Filtrat Rate mL/min Glucose Level 158 Calcium Level 9.6 Phosphorus Level 4.1 Magnesium Level 2.4 B-Type Natriuretic 52672 H Peptide Bedside Glucose 154 Medications Medication Current Medications IV Flush (NS 3 ml) 3 ml PER PROTOCOL IV ; Start 09/14/18 at 19:30 Ondansetron HCl (Zofran Inj) 4 mg Q6H PRN IV NAUSEA/VOMITING; Start 09/14/18 at 19:30 Acetaminophen (Tylenol Tab) 650 mg Q6H PRN PO .PAIN 1-3 OR TEMP; Start 09/14/18 at 19:30 Acetaminophen/ Hydrocodone Bitart ([place] (5/325)) 1 tab Q6H PRN PO .MOD PAIN 4- 6 Last administered on 09/21/18at 23:33; Admin Dose 1 TAB; Start 09/14/18 at 19:30 Morphine Sulfate (morphine) 2 mg Q4H PRN IV .SEVERE PAIN 7-10 Last administered on 09/17/18at 13:38; Admin Dose 2 MG; Start 09/14/18 at 19:30 Docusate Sodium (Colace) 100 mg Q12H PRN PO .CONSTIPATION Last administered on 09/21/18at 08:12; Admin Dose 100 MG; Start 09/14/18 at 19:30 Zolpidem Tartrate (Ambien) 5 mg QHS PRN PO .INSOMNIA Last administered on 09/22/18 01:04; Admin Dose 5 MG; Start 09/14/18 at 19:30 Aspirin (Aspirin) 81 mg DAILY PO Last administered on 09/22/18 08:59; Admin Dose 81 MG; Start 09/15/18 at 09:00 Budesonide (Pulmicort (Neb)) 0.5 mg BID RESP THERAPY HHN Last administered on 09/23/18 08:45; Admin Dose 0.5 MG; Start 09/15/18 at 09:00 Albuterol/ Ipratropium (Duoneb) 3 ml Q2H RESP THERAPY PRN HHN shortness of cory th Last administered on 09/16/18 11:25; Admin Dose 3 ML; Start 09/15/18 at 00:00 Albuterol/ Ipratropium (Duoneb) 3 ml Q6H RESP THERAPY HHN Last administered on 09/23/18 08:45; Admin Dose 3 ML; Start 09/15/18 at 02:00 Nitroglycerin (Nitroglycerin (Sl Tab) 0.4 Mg) 1 tab Q5M PRN SL ANGINA; Start 09/15/18 at 00:00 Piperacillin Sod/ Tazobactam Sod 50 ml @ 100 mls/hr Q6 IVPB Last administered on 09/23/18 05:20; Admin Dose 100 MLS/HR; Start 09/15/18 at 00:16 Atorvastatin Calcium (Lipitor) 80 mg HS PO Last administered on 09/22/18 20:57; Admin Dose 80 MG; Start 09/15/18 at 21:00 Miscellaneous Information 1 ea NOTE XX ; Start 09/16/18 at 12:00 Glucose (Glutose) 15 gm Q15M PRN PO DECREASED GLUCOSE; Start 09/16/18 at 12:00 Glucose (Glutose) 22.5 gm Q15M PRN PO DECREASED GLUCOSE; Start 09/16/18 at 12:00 Dextrose (D50w Syringe) 25 ml Q15M PRN IV DECREASED GLUCOSE; Start 09/16/18 at 12:00 Dextrose (D50w Syringe) 50 ml Q15M PRN IV DECREASED GLUCOSE; Start 09/16/18 at 12:00 Glucagon (Glucagen) 1 mg Q15M PRN IM DECREASED GLUCOSE; Start 09/16/18 at 12:00 Glucose (Glutose) 15 gm Q15M PRN BUCCAL DECREASED GLUCOSE; Start 09/16/18 at 12:00 Furosemide (Lasix) 40 mg BID DIURETICS IV Last administered on 09/23/18 05:22; Admin Dose 40 MG; Start 09/18/18 at 07:30 Lisinopril (Zestril) 5 mg BID PO Last administered on 09/22/18 20:58; Admin Dose 5 MG; Start 09/19/18 at 21:00 Spironolactone (Aldactone) 25 mg DAILY PO Last administered on 09/23/18 08:29; Admin Dose 25 MG; Start 09/19/18 at 17:30 Enalaprilat (Vasotec Iv) 0.625 mg Q6H PRN IV ELEVATED SYSTOLIC BP Last administered on 09/20/18 09:03; Admin Dose 0.625 MG; Start 09/20/18 at 00:00 Insulin Aspart (Novolog Insulin Pen) (Adult SC Insulin - Mild Algorithm)... AC MEALS AND BEDTIME SC Last administered on 09/23/18 07:56; Admin Dose 1 UNIT; Start 09/20/18 at 17:30 Diagnostic Test (Pha) (Accu-Chek) 1 ea 02 XX Last administered on 09/22/18 01:20; Admin Dose 1 EA; Start 09/21/18 at 02:00 Diltiazem HCl (Cardizem Iv) 10 mg Q1H PRN IV ELEVATED HEART RATE Last administered on 09/22/18 17:17; Admin Dose 10 MG; Start 09/21/18 at 02:00 Apixaban (Eliquis) 5 mg BID PO Last administered on 09/23/18 08:20; Admin Dose 5 MG; Start 09/21/18 at 21:00 Bisacodyl (Dulcolax) 10 mg DAILY PRN PO CONSTIPATION Last administered on 09/21/18 20:42; Admin Dose 10 MG; Start 09/21/18 at 16:00 Metoprolol Succinate (Toprol Xl) 25 mg BID PO Last administered on 09/23/18 05:22; Admin Dose 25 MG; Start 09/22/18 at 21:00 Amiodarone HCl (Cordarone) 200 mg BID PO Last administered on 2/26/19at 08:28; Admin Dose 200 MG; Start 09/22/18 at 21:00 BEKA HARPER MD Sep 23, 2018 09:11
[2018-09-23] MEDS: ASPIRIN 81 MG TAB PO SCH (09:37)
--- NOTE | 2018-09-23 10:27 | CONS ---
Consult Date/Type/Reason Admit Date/Time Sep 14, 2018 at 17:13 Initial Consult Date 09/15/18 Type of Consultation: cv Requesting Provider: HAYLEY ARREDONDO Date/Time of Note DATE: 09/23/18 TIME: 10:25 Subjective Interventional cardiology follow-up progress note Subjective: Case discussed with staff. AND Telemetry was reviewed. pt is back in atrial fibrillation with RVR. No bleeding is reported no report of chest pain or pressure pt with less hypoxemia. off BIPAP Breathing appears to be stable now Objective: General: Elderly female. Appears older than stated age with respiratory distress on BiPAP now HEENT: NC/AT. pupils are equal. round. NECK: NO JVD. no stridor. CV: Irregularly irregular . systolic murmur; no gallop or rubs. PULM: no wheezing + rhonchi. GI: SOFT, NT, ND, no rebound or guarding Extremity: trace B/L LE edema. no clubbing. neuro: Awake and alert. Psych: calm and pleasant rectal: deferred X-ray done 09/14/2018 shows:Cardiomegaly, with increased mild failure. CXR 09/16: Cardiomegaly with mild pulmonary edema and small pleural effusions.Calcified atherosclerosis of the thoracic aorta. Chest x-ray done 09/17/2018 shows: Stable cardiomegaly and vascular congestion with persistent left pleural effusion. Superimposed infection cannot be excluded. . EKG was personally reviewed which shows: Atrial fibrillation/junctional rhythm with left bundle branch block Echocardiogram was personally reviewed shows: Moderate left ventricular systolic dysfunction. Ejection fraction is visually estimated at 30-35 %. Tissue Doppler/Mitral Doppler indices are consistent with restrictive physiology with markedly elevated left atrial pressure (Stage III-IV diastolic dysfunction). Multiple segmental wall motion abnormalities. There is moderate enlargement of left atrium. There is mild enlargement of right atrium. Moderate mitral leaflet calcification. Moderate mitral annular calcification. Moderate to severe mitral valve regurgitation. Aortic valve not well visualized. Moderate to severe aortic stenosis however due to low cardiac output severity of aortic stenosis is underestimated. Aortic valve area 0.90 cm2. Mild to moderate aortic valve regurgitation. Normal appearance of the tricuspid valve. There is moderate tricuspid regurgitation. Dilated inferior vena cava with poor inspiratory collapse consistent with elevated right atrial pressures. Objective Vitals Vital Signs Date Temp Pulse Resp B/P (MAP) Pulse Ox O2 O2 Flow FiO2 Time Delivery Rate 2/26/19 94 1.0 08:48 09/23/18 78 20 Nasal 08:45 Cannula 09/23/18 97.8 95/54 (68) 07:28 09/20/18 40 11:15 Intake and Output 09/22/18 09/22/18 09/23/18 1515:00 23:00 07:00 IntakeIntake Total 530 ml 450 ml OutputOutput Total 1100 ml 900 ml BalanceBalance -570 ml -450 ml Results/Medications Result Diagram: 09/23/18 0456 09/23/18 0457 Results 24 hrs Laboratory Tests Test 09/22/18 11:54 09/22/18 17:18 09/22/18 20:55 09/23/18 04:56 Bedside Glucose 197 170 163 White Blood Count 9.0 Red Blood Count 3.64 L Hemoglobin 11.3 L Hematocrit 35.5 L Mean Corpuscular 97.5 Volume Mean Corpuscular 31.0 Hemoglobin Mean Corpuscular 31.8 L Hemoglobin Concent Red Cell 13.2 Distribution Width Platelet Count 236 Mean Platelet Volume 9.8 Immature 1.300 H Granulocytes % Neutrophils % 74.1 Lymphocytes % 15.3 Monocytes % 7.7 Eosinophils % 1.2 Basophils % 0.4 Nucleated Red Blood 0.0 Cells % Immature 0.120 H Granulocytes # Neutrophils # 6.7 Lymphocytes # 1.4 Monocytes # 0.7 Eosinophils # 0.1 Basophils # 0.0 Nucleated Red Blood 0.0 Cells # Test 09/23/18 04:57 09/23/18 07:41 Sodium Level 141 Potassium Level 3.8 Chloride Level 95 L Carbon Dioxide Level 35 H Anion Gap 11 Blood Urea Nitrogen 33 H Creatinine 1.35 H Est Glomerular Filtrat Rate mL/min Glucose Level 158 Calcium Level 9.6 Phosphorus Level 4.1 Magnesium Level 2.4 B-Type Natriuretic 24497 H Peptide Bedside Glucose 154 Home Meds Reported Medications Spironolactone* (Aldactone*) 25 Mg Tablet, 12.5 MG PO DAILY, #60 TAB 09/22/18 Sacubitril/Valsartan (Entresto 49 mg-51 mg Tablet) 1 Each Tablet, 1 EACH PO BID, TAB 09/22/18 Omeprazole* (Omeprazole*) 20 Mg Capsule.dr, 20 MG PO DAILY, #30 CAP 09/22/18 Levothyroxine Sodium* (Synthroid*) 100 Mcg Tablet, 100 MCG PO BEFORE BREAKFAST, #30 TAB 09/22/18 Furosemide* (Lasix*) 40 Mg Tablet, 40 MG PO 4X A WEEK, TAB 09/22/18 Ferrous Sulfate (Ferrous Sulfate) 325 Mg Tablet., 325 MG PO BID 09/22/18 Carvedilol* (Coreg*) 6.25 Mg Tablet, 6.25 MG PO BID, #60 TAB 09/22/18 Atorvastatin Calcium (Atorvastatin Calcium) 10 Mg Tablet, 10 MG PO QHS, #30 TAB 09/22/18 Apixaban* (Eliquis*) 2.5 Mg Tablet, 2.5 MG PO BID, TAB 09/22/18 Discontinued Reported Medications Rosiglitazone Maleate* (Avandia*) 8 Mg Tablet 10/25/10 Cyclobenzaprine Hcl* (Cyclobenzaprine Hcl*) 10 Mg Tablet 10/25/10 Diclofenac Sodium* (Voltaren*) 25 Mg Tablet. 10/25/10 Carvedilol* (Carvedilol*) 25 Mg Tablet 10/25/10 Valsartan* (Diovan*) 80 Mg Tablet 10/25/10 Simvastatin* (Zocor*) 20 Mg Tablet 10/25/10 Folic Acid* (Folic Acid*) 1 Mg Tablet 10/25/10 Metformin Hcl* (Metformin Hcl*) 1,000 Mg Tablet 10/25/10 Nifedipine (Nifedipine XL) 30 Mg/Bottle Tab.osm.24 10/25/10 Aspirin (Aspirin) 81 Mg Tablet 10/25/10 Nifedipine* (Nifedipine ER*) 60 Mg Tablet.sa 10/25/10 Medications Current Medications IV Flush (NS 3 ml) 3 ml PER PROTOCOL IV ; Start 09/14/18 at 19:30 Ondansetron HCl (Zofran Inj) 4 mg Q6H PRN IV NAUSEA/VOMITING; Start 09/14/18 at 19:30 Acetaminophen (Tylenol Tab) 650 mg Q6H PRN PO .PAIN 1-3 OR TEMP; Start 09/14/18 at 19:30 Acetaminophen/ Hydrocodone Bitart ([place] (5/325)) 1 tab Q6H PRN PO .MOD PAIN 4- 6 Last administered on 09/21/18at 23:33; Admin Dose 1 TAB; Start 09/14/18 at 19:30 Morphine Sulfate (morphine) 2 mg Q4H PRN IV .SEVERE PAIN 7-10 Last administered on 09/17/18 13:38; Admin Dose 2 MG; Start 09/14/18 at 19:30 Docusate Sodium (Colace) 100 mg Q12H PRN PO .CONSTIPATION Last administered on 09/21/18 08:12; Admin Dose 100 MG; Start 09/14/18 at 19:30 Zolpidem Tartrate (Ambien) 5 mg QHS PRN PO .INSOMNIA Last administered on 09/22/18 01:04; Admin Dose 5 MG; Start 09/14/18 at 19:30 Aspirin (Aspirin) 81 mg DAILY PO Last administered on 09/23/18 09:37; Admin Dose 81 MG; Start 09/15/18 at 09:00 Budesonide (Pulmicort (Neb)) 0.5 mg BID RESP THERAPY HHN Last administered on 09/23/18 08:45; Admin Dose 0.5 MG; Start 09/15/18 at 09:00 Albuterol/ Ipratropium (Duoneb) 3 ml Q2H RESP THERAPY PRN HHN shortness of breath Last administered on 09/16/18 11:25; Admin Dose 3 ML; Start 09/15/18 at 00:00 Albuterol/ Ipratropium (Duoneb) 3 ml Q6H RESP THERAPY HHN Last administered on 09/23/18 08:45; Admin Dose 3 ML; Start 09/15/18 at 02:00 Nitroglycerin (Nitroglycerin (Sl Tab) 0.4 Mg) 1 tab Q5M PRN SL ANGINA; Start 09/15/18 at 00:00 Piperacillin Sod/ Tazobactam Sod 50 ml @ 100 mls/hr Q6 IVPB Last administered on 09/23/18 05:20; Admin Dose 100 MLS/HR; Start 09/15/18 at 00:16 Atorvastatin Calcium (Lipitor) 80 mg HS PO Last administered on 09/22/18 20:57; Admin Dose 80 MG; Start 09/15/18 at 21:00 Miscellaneous Information 1 ea NOTE XX ; Start 09/16/18 at 12:00 Glucose (Glutose) 15 gm Q15M PRN PO DECREASED GLUCOSE; Start 09/16/18 at 12:00 Glucose (Glutose) 22.5 gm Q15M PRN PO DECREASED GLUCOSE; Start 09/16/18 at 12:00 Dextrose (D50w Syringe) 25 ml Q15M PRN IV DECREASED GLUCOSE; Start 09/16/18 at 12:00 Dextrose (D50w Syringe) 50 ml Q15M PRN IV DECREASED GLUCOSE; Start 09/16/18 at 12:00 Glucagon (Glucagen) 1 mg Q15M PRN IM DECREASED GLUCOSE; Start 09/16/18 at 12:00 Glucose (Glutose) 15 gm Q15M PRN BUCCAL DECREASED GLUCOSE; Start 09/16/18 at 12:00 Furosemide (Lasix) 40 mg BID DIURETICS IV Last administered on 09/23/18at 05:22; Admin Dose 40 MG; Start 09/18/18 at 07:30 Lisinopril (Zestril) 5 mg BID PO Last administered on 09/22/18at 20:58; Admin Dose 5 MG; Start 09/19/18 at 21:00 Spironolactone (Aldactone) 25 mg DAILY PO Last administered on 09/23/18 08:29; Admin Dose 25 MG; Start 09/19/18 at 17:30 Enalaprilat (Vasotec Iv) 0.625 mg Q6H PRN IV ELEVATED SYSTOLIC BP Last administered on 09/20/18 09:03; Admin Dose 0.625 MG; Start 09/20/18 at 00:00 Insulin Aspart (Novolog Insulin Pen) (Adult SC Insulin - Mild Algorithm)... AC MEALS AND BEDTIME SC Last administered on 09/23/18at 07:56; Admin Dose 1 UNIT; Start 09/20/18 at 17:30 Diagnostic Test (Pha) (Accu-Chek) 1 ea 02 XX Last administered on 09/22/18at 01:20; Admin Dose 1 EA; Start 09/21/18 at 02:00 Diltiazem HCl (Cardizem Iv) 10 mg Q1H PRN IV ELEVATED HEART RATE Last administered on 09/22/18at 17:17; Admin Dose 10 MG; Start 09/21/18 at 02:00 Apixaban (Eliquis) 5 mg BID PO Last administered on 09/23/18at 08:20; Admin Dose 5 MG; Start 09/21/18 at 21:00 Bisacodyl (Dulcolax) 10 mg DAILY PRN PO CONSTIPATION Last administered on 09/21/18at 20:42; Admin Dose 10 MG; Start 09/21/18 at 16:00 Metoprolol Succinate (Toprol Xl) 25 mg BID PO Last administered on 09/23/18at 05:22; Admin Dose 25 MG; Start 09/22/18 at 21:00 Amiodarone HCl (Cordarone) 200 mg BID PO Last administered on 09/23/18at 08:28; Admin Dose 200 MG; Start 09/22/18 at 21:00 Assessment/Plan Hospital Course (Demo Recall) 1. 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 Congestive heart failure appears acute secondary systolic heart failure 3. Sepsis and shock 4. Arrhythmias with proximal atrial fibrillation /junctional rhythm 5. Severe cardiomyopathy ischemic 6/ DM 7. HX HTN now hypotensive and shock 8. UTI 9. ? pneumonia 10. Acute renal failure 11. Anemia 12. Valvular heart disease 13. Transaminitis/liver failure: Probably related to hepatic congestion Recommendations: Continue with Eliquis . will give a dose of dig now and check dig level in AM Antibiotic management as internal medicine. Blood cultures are negative so far Respiratory care will be continued. O2 and BiPAP as needed Diabetic control as per internal medicine. Insulin. CT surgery input is appreciated. We will try to aggressively diurese her as much as possible replace electrolyte as needed Continue with Aldactone and lisinopril Cont Toprol-XL Thank you for his referral. We will continue to follow along with you LUIS A AGUILERA MD [facility] LUIS A AGUILERA MD Sep 23, 2018 10:27
[2018-09-23] MEDS ORDERED: POTASSIUM CHLORIDE (SR) 20 MEQ TAB PO STA (10:28)
[2018-09-23] MEDS ORDERED: DIGOXIN 500 MCG INJ IV ONE (10:30)
--- NOTE | 2018-09-23 11:14 | PN ---
Date/Time of Note Date/Time of Note DATE: 09/23/18 TIME: 11:14 Objective Vitals Vital Signs Date Temp Pulse Resp B/P (MAP) Pulse Ox O2 O2 Flow FiO2 Time Delivery Rate 09/23/18 94 1.0 08:48 09/23/18 78 20 Nasal 08:45 Cannula 09/23/18 97.8 95/54 (68) 07:28 09/20/18 40 11:15 Intake and Output 09/22/18 09/22/18 09/23/18 1515:00 23:00 07:00 IntakeIntake Total 530 ml 450 ml OutputOutput Total 1100 ml 900 ml BalanceBalance -570 ml -450 ml Results Result Diagram: 09/23/18 0456 09/23/18 0457 Medications Medications Current Medications IV Flush (NS 3 ml) 3 ml PER PROTOCOL IV ; Start 09/14/18 at 19:30 Ondansetron HCl (Zofran Inj) 4 mg Q6H PRN IV NAUSEA/VOMITING; Start 09/14/18 at 19:30 Acetaminophen (Tylenol Tab) 650 mg Q6H PRN PO .PAIN 1-3 OR TEMP; Start 09/14/18 at 19:30 Acetaminophen/ Hydrocodone Bitart ([place] (5/325)) 1 tab Q6H PRN PO .MOD PAIN 4- 6 Last administered on 09/21/18at 23:33; Admin Dose 1 TAB; Start 09/14/18 at 19:30 Morphine Sulfate (morphine) 2 mg Q4H PRN IV .SEVERE PAIN 7-10 Last administered on 09/17/18 13:38; Admin Dose 2 MG; Start 09/14/18 at 19:30 Docusate Sodium (Colace) 100 mg Q12H PRN PO .CONSTIPATION Last administered on 09/21/18 08:12; Admin Dose 100 MG; Start 09/14/18 at 19:30 Zolpidem Tartrate (Ambien) 5 mg QHS PRN PO .INSOMNIA Last administered on 09/22/18 01:04; Admin Dose 5 MG; Start 09/14/18 at 19:30 Aspirin (Aspirin) 81 mg DAILY PO Last administered on 09/23/18 09:37; Admin Dose 81 MG; Start 09/15/18 at 09:00 Budesonide (Pulmicort (Neb)) 0.5 mg BID RESP THERAPY HHN Last administered on 09/23/18 08:45; Admin Dose 0.5 MG; Start 09/15/18 at 09:00 Albuterol/ Ipratropium (Duoneb) 3 ml Q2H RESP THERAPY PRN HHN shortness of breath Last administered on 09/16/18 11:25; Admin Dose 3 ML; Start 09/15/18 at 00:00 Albuterol/ Ipratropium (Duoneb) 3 ml Q6H RESP THERAPY HHN Last administered on 09/23/18 08:45; Admin Dose 3 ML; Start 09/15/18 at 02:00 Nitroglycerin (Nitroglycerin (Sl Tab) 0.4 Mg) 1 tab Q5M PRN SL ANGINA; Start 09/15/18 at 00:00 Piperacillin Sod/ Tazobactam Sod 50 ml @ 100 mls/hr Q6 IVPB Last administered on 09/23/18 05:20; Admin Dose 100 MLS/HR; Start 09/15/18 at 00:16 Atorvastatin Calcium (Lipitor) 80 mg HS PO Last administered on 09/22/18 20:57; Admin Dose 80 MG; Start 09/15/18 at 21:00 Miscellaneous Information 1 ea NOTE XX ; Start 09/16/18 at 12:00 Glucose (Glutose) 15 gm Q15M PRN PO DECREASED GLUCOSE; Start 09/16/18 at 12:00 Glucose (Glutose) 22.5 gm Q15M PRN PO DECREASED GLUCOSE; Start 09/16/18 at 12:00 Dextrose (D50w Syringe) 25 ml Q15M PRN IV DECREASED GLUCOSE; Start 09/16/18 at 12:00 Dextrose (D50w Syringe) 50 ml Q15M PRN IV DECREASED GLUCOSE; Start 09/16/18 at 12:00 Glucagon (Glucagen) 1 mg Q15M PRN IM DECREASED GLUCOSE; Start 09/16/18 at 12:00 Glucose (Glutose) 15 gm Q15M PRN BUCCAL DECREASED GLUCOSE; Start 09/16/18 at 12:00 Furosemide (Lasix) 40 mg BID DIURETICS IV Last administered on 09/23/18 05:22; Admin Dose 40 MG; Start 09/18/18 at 07:30 Lisinopril (Zestril) 5 mg BID PO Last administered on 09/22/18 20:58; Admin Dose 5 MG; Start 09/19/18 at 21:00 Spironolactone (Aldactone) 25 mg DAILY PO Last administered on 09/23/18 08:29; Admin Dose 25 MG; Start 09/19/18 at 17:30 Enalaprilat (Vasotec Iv) 0.625 mg Q6H PRN IV ELEVATED SYSTOLIC BP Last administered on 09/20/18 09:03; Admin Dose 0.625 MG; Start 09/20/18 at 00:00 Insulin Aspart (Novolog Insulin Pen) (Adult SC Insulin - Mild Algorithm)... AC MEALS AND BEDTIME SC Last administered on 09/23/18 07:56; Admin Dose 1 UNIT; Start 09/20/18 at 17:30 Diagnostic Test (Pha) (Accu-Chek) 1 ea 02 XX Last administered on 09/22/18 01:20; Admin Dose 1 EA; Start 09/21/18 at 02:00 Diltiazem HCl (Cardizem Iv) 10 mg Q1H PRN IV ELEVATED HEART RATE Last administered on 09/22/18 17:17; Admin Dose 10 MG; Start 09/21/18 at 02:00 Apixaban (Eliquis) 5 mg BID PO Last administered on 09/23/18 08:20; Admin Dose 5 MG; Start 09/21/18 at 21:00 Bisacodyl (Dulcolax) 10 mg DAILY PRN PO CONSTIPATION Last administered on 09/21/18 20:42; Admin Dose 10 MG; Start 09/21/18 at 16:00 Metoprolol Succinate (Toprol Xl) 25 mg BID PO Last administered on 09/23/18 05:22; Admin Dose 25 MG; Start 09/22/18 at 21:00 Amiodarone HCl (Cordarone) 200 mg BID PO Last administered on 09/23/18 08:28; Admin Dose 200 MG; Start 09/22/18 at 21:00 Polyethylene Glycol (Miralax) 17 gm ONCE ONCE PO ; Start 09/23/18 at 11:30; Stop 09/23/18 at 11:31 VTE Prophylaxis Risk score (from Nsg)>0 risk: 11 SCD applied (from Nsg): Yes Lines/Catheters IV Catheter Type: Rebollar in Place: No Assessment/Plan Hospital Course Subjective -no acute issues overnight, but still tachy at times. Objective Physical exam General: Patient is laying in bed and answers questions appropriately Mentation: Patient is alert and oriented somewhat, but baseline Head: Normocephalic atraumatic Eyes: EOMI, pupils reactive to light Neck: Supple, nontender, midline Respiratory: Clear to auscultation bilaterally Cardiovascular: regular rate, no obvious murmurs Gastrointestinal: non-tender to palpation, bowel sounds heard. Neurological: Moves all extremities spontaneously Skin: No new skin lesions Assessment/Plan 1. Acute hypoxic respiratory failure- improving - Patient weaned off high flow and tolerating NC well. Saturations >90% on 2L - Pulm on board and appreciate recommendations - Cardiology on board and continuing aggressive diuresis 2. A. fib with RVR - patient back in afib recently and Cardiology aware - cardiology to attempt new changes 3. Sepsis secondary to UTI and/or pneumonia- stable - Continue IV antibiotics and final cultures noted - On Zosyn day 7. Remains afebrile and WBC nl 4. NSTEMI - s/p LHC on 09/16 that showed triple vessel disease - CT surgery input appreciated and not recommending surgical intervention due to high risk. Family also opting not to proceed with surgical intervention - will continue aggressive medical management per Cardiology recommendations 5. Diabetes - A1c noted - ISS and accuchecks 6. HTN - BP stable 7. Normocytic anemia likely secondary chronic disease - Monitor - no need for transfusion at this time 8. Disposition - Patient Will need HR better controlled prior to d/c - PT ordered for discharge planning - Continue diuresing per Cardiology recommendations ALEX HYLTON Sep 23, 2018 11:14
[2018-09-23] MEDS ORDERED: POLYETHYLENE GLYCOL 17 GM PACKET PO ONE (11:30)
[2018-09-23] MEDS ORDERED: METF100010 PO (14:00)
[2018-09-23] MEDS ORDERED: VALS80TA2 PO (14:00)
[2018-09-23] MEDS ORDERED: NIFE60TA18 PO (14:00)
[2018-09-23] MEDS ORDERED: ASPI-817 PO (14:00)
[2018-09-23] MEDS ORDERED: ROSI4TAB PO (14:00)
[2018-09-23] MEDS ORDERED: NIFE30TA23 PO (14:00)
[2018-09-23] MEDS ORDERED: SIMV20TA2 PO (14:00)
[2018-09-23] MEDS ORDERED: DICL25TA11 PO (14:00)
[2018-09-23] MEDS ORDERED: FOLI-49 PO (14:00)
[2018-09-23] MEDS ORDERED: CARV25TA97 PO (14:00)
[2018-09-23] MEDS ORDERED: CYCL10TA7 PO (14:00)
--- NOTE | 2018-09-23 14:31 | CONS ---
Consult Date/Type/Reason Admit Date/Time Sep 14, 2018 at 17:13 Initial Consult Date 09/15/18 Type of Consult Pulmonary Requesting Provider: HAYLEY ARREDONDO Date/Time of Note DATE: 09/23/18 TIME: 14:30 Subjective Continues to improve now off nasal cannula oxygen Objective Vital Signs Date Temp Pulse Resp B/P (MAP) Pulse Ox O2 O2 Flow FiO2 Time Delivery Rate 09/23/18 101 12:37 09/23/18 98.0 22 97/54 (68) 99 Room Air 11:38 09/23/18 1.0 08:48 09/20/18 40 11:15 Intake and Output 09/22/18 09/22/18 09/23/18 1414:59 22:59 06:59 IntakeIntake Total 530 ml 450 ml OutputOutput Total 1100 ml 900 ml BalanceBalance -570 ml -450 ml Exam Elderly lady comfortable at rest GENERAL: VITAL SIGNS: per chart NECK: Supple. No JVD or lymphadenopathy. CARDIAC EXAM: S1, S2. No added sounds or murmurs. CHEST: Diminished bilaterally ABDOMEN: Soft, nontender. No guarding or rebound. EXTREMITIES: No cyanosis, clubbing or edema. NEUROLOGIC: Generalized weakness. No focal deficits. Vent Setting Fraction of Inspired Oxygen pe: 40 Results/Medications Result Diagram: 09/23/186 09/23/187 Results 24 hrs Laboratory Tests Test 09/22/18 17:18 09/22/18 20:55 09/23/18 04:56 09/23/18 04:57 Bedside Glucose 170 163 White Blood Count 9.0 Red Blood Count 3.64 L Hemoglobin 11.3 L Hematocrit 35.5 L Mean Corpuscular 97.5 Volume Mean Corpuscular 31.0 Hemoglobin Mean Corpuscular 31.8 L Hemoglobin Concent Red Cell 13.2 Distribution Width Platelet Count 236 Mean Platelet Volume 9.8 Immature 1.300 H Granulocytes % Neutrophils % 74.1 Lymphocytes % 15.3 Monocytes % 7.7 Eosinophils % 1.2 Basophils % 0.4 Nucleated Red Blood 0.0 Cells % Immature 0.120 H Granulocytes # Neutrophils # 6.7 Lymphocytes # 1.4 Monocytes # 0.7 Eosinophils # 0.1 Basophils # 0.0 Nucleated Red Blood 0.0 Cells # Sodium Level 141 Potassium Level 3.8 Chloride Level 95 L Carbon Dioxide Level 35 H Anion Gap 11 Blood Urea Nitrogen 33 H Creatinine 1.35 H Est Glomerular Filtrat Rate mL/min Glucose Level 158 Calcium Level 9.6 Phosphorus Level 4.1 Magnesium Level 2.4 B-Type Natriuretic 76037 H Peptide Test 09/23/18 07:41 09/23/18 12:12 Bedside Glucose 154 175 Medications Current Medications IV Flush (NS 3 ml) 3 ml PER PROTOCOL IV ; Start 09/14/18 at 19:30 Ondansetron HCl (Zofran Inj) 4 mg Q6H PRN IV NAUSEA/VOMITING; Start 09/14/18 at 19:30 Acetaminophen (Tylenol Tab) 650 mg Q6H PRN PO .PAIN 1-3 OR TEMP; Start 09/14/18 at 19:30 Acetaminophen/ Hydrocodone Bitart ([place] (5/325)) 1 tab Q6H PRN PO .MOD PAIN 4- 6 Last administered on 09/21/18 23:33; Admin Dose 1 TAB; Start 09/14/18 at 19:30 Morphine Sulfate (morphine) 2 mg Q4H PRN IV .SEVERE PAIN 7-10 Last administered on 09/17/18 13:38; Admin Dose 2 MG; Start 09/14/18 at 19:30 Docusate Sodium (Colace) 100 mg Q12H PRN PO .CONSTIPATION Last administered on 09/21/18 08:12; Admin Dose 100 MG; Start 09/14/18 at 19:30 Zolpidem Tartrate (Ambien) 5 mg QHS PRN PO .INSOMNIA Last administered on 09/22/18 01:04; Admin Dose 5 MG; Start 09/14/18 at 19:30 Aspirin (Aspirin) 81 mg DAILY PO Last administered on 09/23/18 09:37; Admin Dose 81 MG; Start 09/15/18 at 09:00 Budesonide (Pulmicort (Neb)) 0.5 mg BID RESP THERAPY HHN Last administered on 09/23/18 08:45; Admin Dose 0.5 MG; Start 09/15/18 at 09:00 Albuterol/ Ipratropium (Duoneb) 3 ml Q2H RESP THERAPY PRN HHN shortness of breath Last administered on 09/16/18 11:25; Admin Dose 3 ML; Start 09/15/18 at 00:00 Albuterol/ Ipratropium (Duoneb) 3 ml Q6H RESP THERAPY HHN Last administered on 09/23/18at 08:45; Admin Dose 3 ML; Start 09/15/18 at 02:00 Nitroglycerin (Nitroglycerin (Sl Tab) 0.4 Mg) 1 tab Q5M PRN SL ANGINA; Start 09/15/18 at 00:00 Piperacillin Sod/ Tazobactam Sod 50 ml @ 100 mls/hr Q6 IVPB Last administered on 09/23/18at 12:15; Admin Dose 100 MLS/HR; Start 09/15/18 at 00:16 Atorvastatin Calcium (Lipitor) 80 mg HS PO Last administered on 09/22/18at 20:57; Admin Dose 80 MG; Start 09/15/18 at 21:00 Miscellaneous Information 1 ea NOTE XX ; Start 09/16/18 at 12:00 Glucose (Glutose) 15 gm Q15M PRN PO DECREASED GLUCOSE; Start 09/16/18 at 12:00 Glucose (Glutose) 22.5 gm Q15M PRN PO DECREASED GLUCOSE; Start 09/16/18 at 12:00 Dextrose (D50w Syringe) 25 ml Q15M PRN IV DECREASED GLUCOSE; Start 09/16/18 at 12:00 Dextrose (D50w Syringe) 50 ml Q15M PRN IV DECREASED GLUCOSE; Start 09/16/18 at 12:00 Glucagon (Glucagen) 1 mg Q15M PRN IM DECREASED GLUCOSE; Start 09/16/18 at 12:00 Glucose (Glutose) 15 gm Q15M PRN BUCCAL DECREASED GLUCOSE; Start 09/16/18 at 12:00 Furosemide (Lasix) 40 mg BID DIURETICS IV Last administered on 09/23/18at 05:22; Admin Dose 40 MG; Start 09/18/18 at 07:30 Lisinopril (Zestril) 5 mg BID PO Last administered on 09/22/18at 20:58; Admin Dose 5 MG; Start 09/19/18 at 21:00 Spironolactone (Aldactone) 25 mg DAILY PO Last administered on 09/23/18at 08:29; Admin Dose 25 MG; Start 09/19/18 at 17:30 Enalaprilat (Vasotec Iv) 0.625 mg Q6H PRN IV ELEVATED SYSTOLIC BP Last administered on 09/20/18 09:03; Admin Dose 0.625 MG; Start 09/20/18 at 00:00 Insulin Aspart (Novolog Insulin Pen) (Adult SC Insulin - Mild Algorithm)... AC MEALS AND BEDTIME SC Last administered on 09/23/18 12:33; Admin Dose 1 UNIT; Start 09/20/18 at 17:30 Diagnostic Test (Pha) (Accu-Chek) 1 ea 02 XX Last administered on 09/22/18 01:20; Admin Dose 1 EA; Start 09/21/18 at 02:00 Diltiazem HCl (Cardizem Iv) 10 mg Q1H PRN IV ELEVATED HEART RATE Last administered on 09/22/18 17:17; Admin Dose 10 MG; Start 09/21/18 at 02:00 Apixaban (Eliquis) 5 mg BID PO Last administered on 09/23/18 08:20; Admin Dose 5 MG; Start 09/21/18 at 21:00 Bisacodyl (Dulcolax) 10 mg DAILY PRN PO CONSTIPATION Last administered on 09/21/18at 20:42; Admin Dose 10 MG; Start 09/21/18 at 16:00 Metoprolol Succinate (Toprol Xl) 25 mg BID PO Last administered on 09/23/18at 05:22; Admin Dose 25 MG; Start 09/22/18 at 21:00 Amiodarone HCl (Cordarone) 200 mg BID PO Last administered on 09/23/18 08:28; Admin Dose 200 MG; Start 09/22/18 at 21:00 Assessment/Plan Hospital Course (Demo Recall) IMPRESSION 1. Status post septic shock, likely secondary to urinary tract infection. 2. Possible community-acquired pneumonia. 3. Pulmonary edema with acute hypoxemic respiratory failure. Progressive hypoxemia secondary to pulmonary edema, slowly improving. 4. Renal insufficiency, likely acute tubular necrosis injury. 5. Non-ST elevation OR, ischemic cardia myopathy with severe aortic stenosis status post cardiac cath family declined coronary artery bypass graft surgery PLAN: 1. Continue broad-spectrum antibiotics. 2. Aspiration precautions 3. Cardiac recs 4. decrease o2 as tolerated 5. DVT and GI prophylaxis. 6. PT eval. ARU eval.? DC Rebollar catheter. ALEN FLORES MD, [facility] Sep 23, 2018 14:31
[2018-09-23] MEDS: ATORVASTATIN 80 MG TAB PO SCH (20:44)
[2018-09-24] VITALS (10 sets, daily range): BP systolic 111–146; BP diastolic 61–86; PULSE 86–120; RESP 17–20
[2018-09-24] MEDS: PIPER-TAZO 2.25 GM/NS 50 ML IVPB SCH ×4 (00:02→17:41)
[2018-09-24] MEDS: ALBUTEROL/IPRATROPIUM (NEB) 3 ML AMP HHN SCH ×4 (01:32→20:19)
[2018-09-24] MEDS: ACCUCHECK AT 2AM (Patients on SS coverage) XX SCH (02:04)
[2018-09-24] MEDS: FUROSEMIDE 40 MG INJ IV SCH (05:49)
[2018-09-24] MEDS ORDERED: ALTEPLASE (CATHFLO) 2 MG INJ CATHETER PRN (07:00)
[2018-09-24] MEDS: Insulin NOVOLOG SS MILD Algorithm (SS with meals and bedtime) SC SCH ×4 (08:04→20:57)
[2018-09-24] MEDS: BUDESONIDE (NEB) 0.5MG/2ML AMP HHN SCH ×2 (08:05→20:19)
[2018-09-24] MEDS: METOPROLOL (XL) 25 MG TAB PO SCH ×2 (08:24→20:27)
[2018-09-24] MEDS: APIXABAN 5 MG TABLET PO SCH ×2 (08:24→20:26)
[2018-09-24] MEDS: SPIRONOLACTONE 25 MG TAB PO SCH (08:24)
[2018-09-24] MEDS: ASPIRIN 81 MG TAB PO SCH (08:25)
[2018-09-24] MEDS: AMIODARONE 200 MG TAB PO SCH ×2 (08:25→20:26)
[2018-09-24] MEDS: LISINOPRIL 5 MG TAB PO SCH ×2 (08:25→20:27)
[2018-09-24] MEDS ORDERED: POTASSIUM CHLORIDE (SR) 20 MEQ TAB PO STA (09:12)
--- NOTE | 2018-09-24 09:15 | CONS ---
Assessment/Plan Assessment/Plan Assessment/Plan (Daily) 1. acute Renal failure 2/2 Hemodynamics from CHF 2. acute CHF, possibly systolic with low EF 3. atrial fibrillation with RVR 5. septich shock possibly due to UTI 6. UTI with Urine cx growing Group B streptoccoci 7. Acute NSTEMI s/p LHC on 09/15/18 that showed multivessel obstructive CAD 8. h/o HTN 9. H/o DM II 10. H/o HL 11. metabolic acidosis due to Septic shock + renal failure 12. atrial fibrillation with RVR Plan: BUN/Cr slightly went up 40/1.5, K normal today pt started on amiodarone gtt for rate control, Eliquis for anticoagulation S/p LHC that showed multivessel obstructive CAD- s/p CT surgery evaluation, too high risk for surgery , family wants to wait, medical management for now lisinopril 5 gm BID, aldactone 25 mg po daily, MTP 25 mg BID, BP stable with current regimen IV abx zosyn for sepsis, renally dose all abx and monitor electrolytes will follow up Consultation Date/Type/Reason Admit Date/Time Sep 14, 2018 at 17:13 Initial Consult Date 09/15/18 Type of Consult NEPHROLOGY Requesting Provider: HAYLEY ARREDONDO Date/Time of Note DATE: 09/24/18 TIME: 09:15 Exam/Review of Systems Exam Vitals Vital Signs Date Temp Pulse Resp B/P (MAP) Pulse Ox O2 O2 Flow FiO2 Time Delivery Rate 09/24/18 119 08:20 09/24/18 16 97 21 08:05 09/24/18 97.9 146/75 07:07 (98) 09/23/18 Room Air 15:41 09/23/18 1.0 08:48 Intake and Output 09/23/18 09/23/18 09/24/18 1515:00 23:00 07:00 IntakeIntake Total 50 ml 410 ml 500 ml OutputOutput Total 700 ml 2 ml BalanceBalance 50 ml -290 ml 498 ml Exam Constitutional: alert, awake Respiratory: Bibasilar crackles, no wheezing Cardiovascular: regular rate and rhythm, nl pulses Gastrointestinal: soft, non-tender Extremities: normal pulses Neurological: Non focal Lymph: nl lymph nodes Results Result Diagram: 09/24/18 0504 09/24/18 0504 Results 24hrs Laboratory Tests Test 09/23/18 12:12 09/23/18 16:52 09/23/18 20:41 09/24/18 05:04 Bedside Glucose 175 174 126 White Blood Count 10.7 Red Blood Count 3.75 L Hemoglobin 11.6 L Hematocrit 36.1 L Mean Corpuscular 96.3 Volume Mean Corpuscular 30.9 Hemoglobin Mean Corpuscular 32.1 Hemoglobin Concent Red Cell 13.4 Distribution Width Platelet Count 261 Mean Platelet Volume 10.0 Immature 1.200 H Granulocytes % Neutrophils % 73.4 Lymphocytes % 15.4 Monocytes % 8.2 Eosinophils % 1.2 Basophils % 0.6 Nucleated Red Blood 0.0 Cells % Immature 0.130 H Granulocytes # Neutrophils # 7.9 H Lymphocytes # 1.7 Monocytes # 0.9 Eosinophils # 0.1 Basophils # 0.1 Nucleated Red Blood 0.0 Cells # Sodium Level 140 Potassium Level 4.3 Chloride Level 98 Carbon Dioxide Level 29 Anion Gap 13 Blood Urea Nitrogen 40 H Creatinine 1.50 H Est Glomerular Filtrat Rate mL/min Glucose Level 156 Calcium Level 10.0 Magnesium Level 1.9 Total Bilirubin 0.4 Direct Bilirubin 0.00 Indirect Bilirubin 0.4 Aspartate Amino 39 Transf (AST/SGOT) Alanine 169 H Aminotransferase (AL T/SGPT) Alkaline Phosphatase 99 B-Type Natriuretic 24225 H Peptide Total Protein 7.5 Albumin 3.4 Globulin 4.10 H Albumin/Globulin 0.82 Ratio Digoxin Level < 0.4 L Test 09/24/18 07:56 Bedside Glucose 157 Medications Medication Current Medications IV Flush (NS 3 ml) 3 ml PER PROTOCOL IV ; Start 09/14/18 at 19:30 Ondansetron HCl (Zofran Inj) 4 mg Q6H PRN IV NAUSEA/VOMITING; Start 09/14/18 at 19:30 Acetaminophen (Tylenol Tab) 650 mg Q6H PRN PO .PAIN 1-3 OR TEMP; Start 09/14/18 at 19:30 Acetaminophen/ Hydrocodone Bitart ([place] (5/325)) 1 tab Q6H PRN PO .MOD PAIN 4- 6 Last administered on 09/21/18at 23:33; Admin Dose 1 TAB; Start 09/14/18 at 19 :30 Morphine Sulfate (morphine) 2 mg Q4H PRN IV .SEVERE PAIN 7-10 Last administered on 09/17/18 13:38; Admin Dose 2 MG; Start 09/14/18 at 19:30 Docusate Sodium (Colace) 100 mg Q12H PRN PO .CONSTIPATION Last administered on 09/21/18 08:12; Admin Dose 100 MG; Start 09/14/18 at 19:30 Zolpidem Tartrate (Ambien) 5 mg QHS PRN PO .INSOMNIA Last administered on 09/22/18 01:04; Admin Dose 5 MG; Start 09/14/18 at 19:30 Aspirin (Aspirin) 81 mg DAILY PO Last administered on 09/24/18 08:25; Admin Dose 81 MG; Start 09/15/18 at 09:00 Budesonide (Pulmicort (Neb)) 0.5 mg BID RESP THERAPY HHN Last administered on 09/24/18 08:05; Admin Dose 0.5 MG; Start 09/15/18 at 09:00 Albuterol/ Ipratropium (Duoneb) 3 ml Q2H RESP THERAPY PRN HHN shortness of breath Last administered on 09/16/18 11:25; Admin Dose 3 ML; Start 09/15/18 at 00:00 Albuterol/ Ipratropium (Duoneb) 3 ml Q6H RESP THERAPY HHN Last administered on 09/24/18 08:04; Admin Dose 3 ML; Start 09/15/18 at 02:00 Nitroglycerin (Nitroglycerin (Sl Tab) 0.4 Mg) 1 tab Q5M PRN SL ANGINA; Start 09/15/18 at 00:00 Piperacillin Sod/ Tazobactam Sod 50 ml @ 100 mls/hr Q6 IVPB Last administered on 09/24/18 05:49; Admin Dose 100 MLS/HR; Start 09/15/18 at 00:16 Atorvastatin Calcium (Lipitor) 80 mg HS PO Last administered on 09/23/18 20:44; Admin Dose 80 MG; Start 09/15/18 at 21:00 Miscellaneous Information 1 ea NOTE XX ; Start 09/16/18 at 12:00 Glucose (Glutose) 15 gm Q15M PRN PO DECREASED GLUCOSE; Start 09/16/18 at 12:00 Glucose (Glutose) 22.5 gm Q15M PRN PO DECREASED GLUCOSE; Start 09/16/18 at 12:00 Dextrose (D50w Syringe) 25 ml Q15M PRN IV DECREASED GLUCOSE; Start 09/16/18 at 12:00 Dextrose (D50w Syringe) 50 ml Q15M PRN IV DECREASED GLUCOSE; Start 09/16/18 at 12:00 Glucagon (Glucagen) 1 mg Q15M PRN IM DECREASED GLUCOSE; Start 09/16/18 at 12:00 Glucose (Glutose) 15 gm Q15M PRN BUCCAL DECREASED GLUCOSE; Start 09/16/18 at 1 2:00 Furosemide (Lasix) 40 mg BID DIURETICS IV Last administered on 09/24/18 05:49; Admin Dose 40 MG; Start 09/18/18 at 07:30 Lisinopril (Zestril) 5 mg BID PO Last administered on 09/24/18 08:25; Admin Dose 5 MG; Start 09/19/18 at 21:00 Spironolactone (Aldactone) 25 mg DAILY PO Last administered on 09/24/18 08:24; Admin Dose 25 MG; Start 09/19/18 at 17:30 Enalaprilat (Vasotec Iv) 0.625 mg Q6H PRN IV ELEVATED SYSTOLIC BP Last administered on 09/20/18 09:03; Admin Dose 0.625 MG; Start 09/20/18 at 00:00 Insulin Aspart (Novolog Insulin Pen) (Adult SC Insulin - Mild Algorithm)... AC MEALS AND BEDTIME SC Last administered on 09/24/18 08:04; Admin Dose 1 UNIT; Start 09/20/18 at 17:30 Diagnostic Test (Pha) (Accu-Chek) 1 ea 02 XX Last administered on 09/24/18at 02:04; Admin Dose 1 EA; Start 09/21/18 at 02:00 Diltiazem HCl (Cardizem Iv) 10 mg Q1H PRN IV ELEVATED HEART RATE Last admini stered on 09/22/18at 17:17; Admin Dose 10 MG; Start 09/21/18 at 02:00 Apixaban (Eliquis) 5 mg BID PO Last administered on 09/24/18 08:24; Admin Dose 5 MG; Start 09/21/18 at 21:00 Bisacodyl (Dulcolax) 10 mg DAILY PRN PO CONSTIPATION Last administered on 09/21/18at 20:42; Admin Dose 10 MG; Start 09/21/18 at 16:00 Metoprolol Succinate (Toprol Xl) 25 mg BID PO Last administered on 09/24/18at 08:24; Admin Dose 25 MG; Start 09/22/18 at 21:00 Amiodarone HCl (Cordarone) 200 mg BID PO Last administered on 09/24/18at 08:25; Admin Dose 200 MG; Start 09/22/18 at 21:00 Alteplase, Recombinant (Cathflo (Activase)) 2 mg MAY REPEAT X1 PRN CATHETER IF CATHETER REMAINS OCCULUDED; Start 09/24/18 at 07:00 BEKA HARPER MD Sep 24, 2018 09:15
--- NOTE | 2018-09-24 09:16 | CONS ---
Consult Date/Type/Reason Admit Date/Time Sep 14, 2018 at 17:13 Initial Consult Date 09/15/18 Type of Consultation: cv Requesting Provider: HAYLEY ARREDONDO Date/Time of Note DATE: 09/24/18 TIME: 09:15 Subjective Interventional cardiology follow-up progress note Subjective: Case discussed with staff. and Telemetry was reviewed. pt is in atrial fibrillation with RVR. dw/ daughter No bleeding is reported no report of chest pain or pressure pt with less hypoxemia. off BIPAP but still c/o sob. Breathing appears to be improving Objective: General: Elderly female. Appears older than stated age with respiratory distress on BiPAP now HEENT: NC/AT. pupils are equal. round. NECK: NO JVD. no stridor. CV: Irregularly irregular . systolic murmur; no gallop or rubs. PULM: no wheezing + rhonchi. GI: SOFT, NT, ND, no rebound or guarding Extremity: trace B/L LE edema. no clubbing. neuro: Awake and alert. Psych: calm and pleasant rectal: deferred X-ray done 09/14/2018 shows:Cardiomegaly, with increased mild failure. CXR 09/16: Cardiomegaly with mild pulmonary edema and small pleural effusions.Calcified atherosclerosis of the thoracic aorta. Chest x-ray done 09/17/2018 shows: Stable cardiomegaly and vascular congestion with persistent left pleural effusion. Superimposed infection cannot be excluded. . EKG was personally reviewed which shows: Atrial fibrillation/junctional rhythm with left bundle branch block Echocardiogram was personally reviewed shows: Moderate left ventricular systolic dysfunction. Ejection fraction is visually estimated at 30-35 %. Tissue Doppler/Mitral Doppler indices are consistent with restrictive physiology with markedly elevated left atrial pressure (Stage III-IV diastolic dysfunction). Multiple segmental wall motion abnormalities. There is moderate enlargement of left atrium. There is mild enlargement of right atrium. Moderate mitral leaflet calcification. Moderate mitral annular calcification. Moderate to severe mitral valve regurgitation. Aortic valve not well visualized. Moderate to severe aortic stenosis however due to low cardiac output severity of aortic stenosis is underestimated. Aortic valve area 0.90 cm2. Mild to moderate aortic valve regurgitation. Normal appearance of the tricuspid valve. There is moderate tricuspid regurgitation. Dilated inferior vena cava with poor inspiratory collapse consistent with elevated right atrial pressures. Objective Vitals Vital Signs Date Temp Pulse Resp B/P (MAP) Pulse Ox O2 O2 Flow FiO2 Time Delivery Rate 09/24/18 119 08:20 09/24/18 16 97 21 08:05 09/24/18 97.9 146/75 07:07 (98) 09/23/18 Room Air 15:41 09/23/18 1.0 08:48 Intake and Output 09/23/18 09/23/18 09/24/18 1515:00 23:00 07:00 IntakeIntake Total 50 ml 410 ml 500 ml OutputOutput Total 700 ml 2 ml BalanceBalance 50 ml -290 ml 498 ml Results/Medications Result Diagram: 09/24/18 0504 09/24/18 0504 Results 24 hrs Laboratory Tests Test 09/23/18 12:12 09/23/18 16:52 09/23/18 20:41 09/24/18 05:04 Bedside Glucose 175 174 126 White Blood Count 10.7 Red Blood Count 3.75 L Hemoglobin 11.6 L Hematocrit 36.1 L Mean Corpuscular 96.3 Volume Mean Corpuscular 30.9 Hemoglobin Mean Corpuscular 32.1 Hemoglobin Concent Red Cell 13.4 Distribution Width Platelet Count 261 Mean Platelet Volume 10.0 Immature 1.200 H Granulocytes % Neutrophils % 73.4 Lymphocytes % 15.4 Monocytes % 8.2 Eosinophils % 1.2 Basophils % 0.6 Nucleated Red Blood 0.0 Cells % Immature 0.130 H Granulocytes # Neutrophils # 7.9 H Lymphocytes # 1.7 Monocytes # 0.9 Eosinophils # 0.1 Basophils # 0.1 Nucleated Red Blood 0.0 Cells # Sodium Level 140 Potassium Level 4.3 Chloride Level 98 Carbon Dioxide Level 29 Anion Gap 13 Blood Urea Nitrogen 40 H Creatinine 1.50 H Est Glomerular Filtrat Rate mL/min Glucose Level 156 Calcium Level 10.0 Magnesium Level 1.9 Total Bilirubin 0.4 Direct Bilirubin 0.00 Indirect Bilirubin 0.4 Aspartate Amino 39 Transf (AST/SGOT) Alanine 169 H Aminotransferase (AL T/SGPT) Alkaline Phosphatase 99 B-Type Natriuretic 72452 H Peptide Total Protein 7.5 Albumin 3.4 Globulin 4.10 H Albumin/Globulin 0.82 Ratio Digoxin Level < 0.4 L Test 09/24/18 07:56 Bedside Glucose 157 Home Meds Reported Medications Valsartan* (Diovan*) 80 Mg Tablet, 80 MG PO DAILY, TAB 09/23/18 Simvastatin (Simvastatin) 20 Mg Tablet, 20 MG PO DAILY, #30 TAB 09/23/18 Rosiglitazone Maleate* (Avandia*) 4 Mg Tablet, 8 MG PO DAILY, TAB 09/23/18 Nifedipine* (Nifedipine ER*) 30 Mg Tablet.sa, 30 MG PO DAILY, TAB.SA 09/23/18 Nifedipine* (Nifedipine ER*) 60 Mg Tablet.sa, 60 MG PO DAILY, TAB.SA 09/23/18 Metformin Hcl* (Metformin Hcl*) 1,000 Mg Tablet, 1000 MG PO WITH BREAKFAST, #30 TAB 09/23/18 Folic Acid* (Folic Acid*) 1 Mg Tablet, 1 MG PO DAILY, TAB 09/23/18 Diclofenac Sodium* (Diclofenac Sodium*) 25 Mg Tablet.dr, 25 MG PO DAILY, #60 TAB 09/23/18 Cyclobenzaprine Hcl* (Cyclobenzaprine Hcl*) 10 Mg Tablet, 10 MG PO TID, #90 TAB 09/23/18 Carvedilol* (Coreg*) 25 Mg Tablet, 25 MG PO BID, #60 TAB 09/23/18 Aspirin* (Aspirin* EC) 81 Mg Tablet.dr, 81 MG PO DAILY, TAB 09/23/18 Discontinued Reported Medications Spironolactone* (Aldactone*) 25 Mg Tablet, 12.5 MG PO DAILY, #60 TAB 09/22/18 Sacubitril/Valsartan (Entresto 49 mg-51 mg Tablet) 1 Each Tablet, 1 EACH PO BID, TAB 09/22/18 Omeprazole* (Omeprazole*) 20 Mg Capsule.dr, 20 MG PO DAILY, #30 CAP 09/22/18 Levothyroxine Sodium* (Synthroid*) 100 Mcg Tablet, 100 MCG PO BEFORE BREAKFAST, #30 TAB 09/22/18 Furosemide* (Lasix*) 40 Mg Tablet, 40 MG PO 4X A WEEK, TAB 09/22/18 Ferrous Sulfate (Ferrous Sulfate) 325 Mg Tablet.dr, 325 MG PO BID 09/22/18 Carvedilol* (Coreg*) 6.25 Mg Tablet, 6.25 MG PO BID, #60 TAB 09/22/18 Atorvastatin Calcium (Atorvastatin Calcium) 10 Mg Tablet, 10 MG PO QHS, #30 TAB 09/22/18 Apixaban* (Eliquis*) 2.5 Mg Tablet, 2.5 MG PO BID, TAB 09/22/18 Rosiglitazone Maleate* (Avandia*) 8 Mg Tablet 10/25/10 Cyclobenzaprine Hcl* (Cyclobenzaprine Hcl*) 10 Mg Tablet 10/25/10 Diclofenac Sodium* (Voltaren*) 25 Mg Tablet. 10/25/10 Carvedilol* (Carvedilol*) 25 Mg Tablet 10/25/10 Valsartan* (Diovan*) 80 Mg Tablet 10/25/10 Simvastatin* (Zocor*) 20 Mg Tablet 10/25/10 Folic Acid* (Folic Acid*) 1 Mg Tablet 10/25/10 Metformin Hcl* (Metformin Hcl*) 1,000 Mg Tablet 10/25/10 Nifedipine (Nifedipine XL) 30 Mg/Bottle Tab.osm.24 10/25/10 Aspirin (Aspirin) 81 Mg Tablet 10/25/10 Nifedipine* (Nifedipine ER*) 60 Mg Tablet.sa 10/25/10 Medications Current Medications IV Flush (NS 3 ml) 3 ml PER PROTOCOL IV ; Start 09/14/18 at 19:30 Ondansetron HCl (Zofran Inj) 4 mg Q6H PRN IV NAUSEA/VOMITING; Start 09/14/18 at 19:30 Acetaminophen (Tylenol Tab) 650 mg Q6H PRN PO .PAIN 1-3 OR TEMP; Start 09/14/18 at 19:30 Acetaminophen/ Hydrocodone Bitart ([place] (5/325)) 1 tab Q6H PRN PO .MOD PAIN 4- 6 Last administered on 09/21/18at 23:33; Admin Dose 1 TAB; Start 09/14/18 at 19:30 Morphine Sulfate (morphine) 2 mg Q4H PRN IV .SEVERE PAIN 7-10 Last administered on 09/17/18at 13:38; Admin Dose 2 MG; Start 09/14/18 at 19:30 Docusate Sodium (Colace) 100 mg Q12H PRN PO .CONSTIPATION Last administered on 09/21/18 08:12; Admin Dose 100 MG; Start 09/14/18 at 19:30 Zolpidem Tartrate (Ambien) 5 mg QHS PRN PO .INSOMNIA Last administered on 09/22/18 01:04; Admin Dose 5 MG; Start 09/14/18 at 19:30 Aspirin (Aspirin) 81 mg DAILY PO Last administered on 09/24/18 08:25; Admin Dose 81 MG; Start 09/15/18 at 09:00 Budesonide (Pulmicort (Neb)) 0.5 mg BID RESP THERAPY HHN Last administered on 09/24/18 08:05; Admin Dose 0.5 MG; Start 09/15/18 at 09:00 Albuterol/ Ipratropium (Duoneb) 3 ml Q2H RESP THERAPY PRN HHN shortness of scott ath Last administered on 09/16/18 11:25; Admin Dose 3 ML; Start 09/15/18 at 00:00 Albuterol/ Ipratropium (Duoneb) 3 ml Q6H RESP THERAPY HHN Last administered on 09/24/18 08:04; Admin Dose 3 ML; Start 09/15/18 at 02:00 Nitroglycerin (Nitroglycerin (Sl Tab) 0.4 Mg) 1 tab Q5M PRN SL ANGINA; Start 09/15/18 at 00:00 Piperacillin Sod/ Tazobactam Sod 50 ml @ 100 mls/hr Q6 IVPB Last administered on 09/24/18 05:49; Admin Dose 100 MLS/HR; Start 09/15/18 at 00:16 Atorvastatin Calcium (Lipitor) 80 mg HS PO Last administered on 09/23/18at 20:44; Admin Dose 80 MG; Start 09/15/18 at 21:00 Miscellaneous Information 1 ea NOTE XX ; Start 09/16/18 at 12:00 Glucose (Glutose) 15 gm Q15M PRN PO DECREASED GLUCOSE; Start 09/16/18 at 12:00 Glucose (Glutose) 22.5 gm Q15M PRN PO DECREASED GLUCOSE; Start 09/16/18 at 12:00 Dextrose (D50w Syringe) 25 ml Q15M PRN IV DECREASED GLUCOSE; Start 09/16/18 at 12:00 Dextrose (D50w Syringe) 50 ml Q15M PRN IV DECREASED GLUCOSE; Start 09/16/18 at 12:00 Glucagon (Glucagen) 1 mg Q15M PRN IM DECREASED GLUCOSE; Start 09/16/18 at 12:00 Glucose (Glutose) 15 gm Q15M PRN BUCCAL DECREASED GLUCOSE; Start 09/16/18 at 12:00 Furosemide (Lasix) 40 mg BID DIURETICS IV Last administered on 09/24/18 05:49; Admin Dose 40 MG; Start 09/18/18 at 07:30 Lisinopril (Zestril) 5 mg BID PO Last administered on 09/24/18 08:25; Admin Dose 5 MG; Start 09/19/18 at 21:00 Spironolactone (Aldactone) 25 mg DAILY PO Last administered on 09/24/18 08:24; Admin Dose 25 MG; Start 09/19/18 at 17:30 Enalaprilat (Vasotec Iv) 0.625 mg Q6H PRN IV ELEVATED SYSTOLIC BP Last administered on 09/20/18 09:03; Admin Dose 0.625 MG; Start 09/20/18 at 00:00 Insulin Aspart (Novolog Insulin Pen) (Adult SC Insulin - Mild Algorithm)... AC MEALS AND BEDTIME SC Last administered on 09/24/18 08:04; Admin Dose 1 UNIT; Start 09/20/18 at 17:30 Diagnostic Test (Pha) (Accu-Chek) 1 ea 02 XX Last administered on 09/24/18 02:04; Admin Dose 1 EA; Start 09/21/18 at 02:00 Diltiazem HCl (Cardizem Iv) 10 mg Q1H PRN IV ELEVATED HEART RATE Last administered on 09/22/18 17:17; Admin Dose 10 MG; Start 09/21/18 at 02:00 Apixaban (Eliquis) 5 mg BID PO Last administered on 09/24/18 08:24; Admin Dose 5 MG; Start 09/21/18 at 21:00 Bisacodyl (Dulcolax) 10 mg DAILY PRN PO CONSTIPATION Last administered on 09/21/18 20:42; Admin Dose 10 MG; Start 09/21/18 at 16:00 Metoprolol Succinate (Toprol Xl) 25 mg BID PO Last administered on 09/24/18 08:24; Admin Dose 25 MG; Start 09/22/18 at 21:00 Amiodarone HCl (Cordarone) 200 mg BID PO Last administered on 09/24/18 08:25; Admin Dose 200 MG; Start 09/22/18 at 21:00 Alteplase, Recombinant (Cathflo (Activase)) 2 mg MAY REPEAT X1 PRN CATHETER IF CATHETER REMAINS OCCULUDED; Start 09/24/18 at 07:00 Assessment/Plan Hospital Course (Demo Recall) 1. 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 Congestive heart failure appears acute secondary systolic heart failure 3. Sepsis and shock 4. Arrhythmias with proximal atrial fibrillation /junctional rhythm 5. Severe cardiomyopathy ischemic 6/ DM 7. HX HTN now hypotensive and shock 8. UTI 9. ? pneumonia 10. Acute renal failure 11. Anemia 12. Valvular heart disease 13. Transaminitis/liver failure: Probably related to hepatic congestion Recommendations: Continue with Eliquis . will give a dose of dig now and check dig level in AM Antibiotic management as internal medicine. Blood cultures are negative so far Respiratory care will be continued. O2 and BiPAP as needed Diabetic control as per internal medicine. Insulin. CT surgery input is appreciated. We will try to aggressively diurese her as much as possible replace electrolyte as needed Continue with Aldactone and lisinopril Cont Toprol-XL will restart amiodarone pricila again Thank you for his referral. We will continue to follow along with you LUIS A AGUILERA MD [facility] LUIS A AGUILERA MD Sep 24, 2018 09:16
[2018-09-24] MEDS ORDERED: DIGOXIN 500 MCG INJ IV ONE (09:30)
[2018-09-24] MEDS ORDERED: AMIODARONE 150MG/D5W BOLUS 100 ML IV ONE (09:30)
[2018-09-24] MEDS: AMIODARONE 200 ML IV SCH ×2 (11:19→23:02)
--- NOTE | 2018-09-24 11:24 | PN ---
Date/Time of Note Date/Time of Note DATE: 09/24/18 TIME: 11:23 Objective Vitals Vital Signs Date Temp Pulse Resp B/P (MAP) Pulse Ox O2 O2 Flow FiO2 Time Delivery Rate 09/24/18 119 08:20 09/24/18 16 97 21 08:05 09/24/18 97.9 146/75 07:07 (98) 09/23/18 Room Air 15:41 09/23/18 1.0 08:48 Intake and Output 09/23/18 09/23/18 09/24/18 1515:00 23:00 07:00 IntakeIntake Total 50 ml 410 ml 500 ml OutputOutput Total 700 ml 2 ml BalanceBalance 50 ml -290 ml 498 ml Results Result Diagram: 09/24/18 0504 09/24/18 0504 Medications Medications Current Medications IV Flush (NS 3 ml) 3 ml PER PROTOCOL IV ; Start 09/14/18 at 19:30 Ondansetron HCl (Zofran Inj) 4 mg Q6H PRN IV NAUSEA/VOMITING; Start 09/14/18 at 19:30 Acetaminophen (Tylenol Tab) 650 mg Q6H PRN PO .PAIN 1-3 OR TEMP; Start 09/14/18 at 19:30 Acetaminophen/ Hydrocodone Bitart ([place] (5/325)) 1 tab Q6H PRN PO .MOD PAIN 4- 6 Last administered on 09/21/18at 23:33; Admin Dose 1 TAB; Start 09/14/18 at 19:30 Morphine Sulfate (morphine) 2 mg Q4H PRN IV .SEVERE PAIN 7-10 Last administered on 09/17/18at 13:38; Admin Dose 2 MG; Start 09/14/18 at 19:30 Docusate Sodium (Colace) 100 mg Q12H PRN PO .CONSTIPATION Last administered on 09/21/18 08:12; Admin Dose 100 MG; Start 09/14/18 at 19:30 Zolpidem Tartrate (Ambien) 5 mg QHS PRN PO .INSOMNIA Last administered on 09/22/18 01:04; Admin Dose 5 MG; Start 09/14/18 at 19:30 Aspirin (Aspirin) 81 mg DAILY PO Last administered on 09/24/18 08:25; Admin Dose 81 MG; Start 09/15/18 at 09:00 Budesonide (Pulmicort (Neb)) 0.5 mg BID RESP THERAPY HHN Last administered on 09/24/18 08:05; Admin Dose 0.5 MG; Start 09/15/18 at 09:00 Albuterol/ Ipratropium (Duoneb) 3 ml Q2H RESP THERAPY PRN HHN shortness of breath Last administered on 09/16/18 11:25; Admin Dose 3 ML; Start 09/15/18 at 00:00 Albuterol/ Ipratropium (Duoneb) 3 ml Q6H RESP THERAPY HHN Last administered on 09/24/18 08:04; Admin Dose 3 ML; Start 09/15/18 at 02:00 Nitroglycerin (Nitroglycerin (Sl Tab) 0.4 Mg) 1 tab Q5M PRN SL ANGINA; Start 09/15/18 at 00:00 Piperacillin Sod/ Tazobactam Sod 50 ml @ 100 mls/hr Q6 IVPB Last administered on 09/24/18 05:49; Admin Dose 100 MLS/HR; Start 09/15/18 at 00:16 Atorvastatin Calcium (Lipitor) 80 mg HS PO Last administered on 09/23/18at 20:44; Admin Dose 80 MG; Start 09/15/18 at 21:00 Miscellaneous Information 1 ea NOTE XX ; Start 09/16/18 at 12:00 Glucose (Glutose) 15 gm Q15M PRN PO DECREASED GLUCOSE; Start 09/16/18 at 12:00 Glucose (Glutose) 22.5 gm Q15M PRN PO DECREASED GLUCOSE; Start 09/16/18 at 12:00 Dextrose (D50w Syringe) 25 ml Q15M PRN IV DECREASED GLUCOSE; Start 09/16/18 at 12:00 Dextrose (D50w Syringe) 50 ml Q15M PRN IV DECREASED GLUCOSE; Start 09/16/18 at 12:00 Glucagon (Glucagen) 1 mg Q15M PRN IM DECREASED GLUCOSE; Start 09/16/18 at 12:00 Glucose (Glutose) 15 gm Q15M PRN BUCCAL DECREASED GLUCOSE; Start 09/16/18 at 12:00 Lisinopril (Zestril) 5 mg BID PO Last administered on 09/24/18 08:25; Admin Dose 5 MG; Start 09/19/18 at 21:00 Spironolactone (Aldactone) 25 mg DAILY PO Last administered on 09/24/18 08:24; Admin Dose 25 MG; Start 09/19/18 at 17:30 Enalaprilat (Vasotec Iv) 0.625 mg Q6H PRN IV ELEVATED SYSTOLIC BP Last administ ered on 09/20/18 09:03; Admin Dose 0.625 MG; Start 09/20/18 at 00:00 Insulin Aspart (Novolog Insulin Pen) (Adult SC Insulin - Mild Algorithm)... AC MEALS AND BEDTIME SC Last administered on 09/24/18 08:04; Admin Dose 1 UNIT; Start 09/20/18 at 17:30 Diagnostic Test (Pha) (Accu-Chek) 1 ea 02 XX Last administered on 09/24/18 02:04; Admin Dose 1 EA; Start 09/21/18 at 02:00 Diltiazem HCl (Cardizem Iv) 10 mg Q1H PRN IV ELEVATED HEART RATE Last administered on 09/22/18 17:17; Admin Dose 10 MG; Start 09/21/18 at 02:00 Apixaban (Eliquis) 5 mg BID PO Last administered on 09/24/18 08:24; Admin Dose 5 MG; Start 09/21/18 at 21:00 Bisacodyl (Dulcolax) 10 mg DAILY PRN PO CONSTIPATION Last administered on 09/21/18 20:42; Admin Dose 10 MG; Start 09/21/18 at 16:00 Metoprolol Succinate (Toprol Xl) 25 mg BID PO Last administered on 09/24/18 08:24; Admin Dose 25 MG; Start 09/22/18 at 21:00 Amiodarone HCl (Cordarone) 200 mg BID PO Last administered on 09/24/18 08:25; Admin Dose 200 MG; Start 09/22/18 at 21:00 Alteplase, Recombinant (Cathflo (Activase)) 2 mg MAY REPEAT X1 PRN CATHETER IF CATHETER REMAINS OCCULUDED; Start 09/24/18 at 07:00 Amiodarone HCl 200 ml @ 16.667 mls/ hr Q12H IV Last administered on 09/24/18 11:19; Admin Dose 16.667 MLS/HR; Start 09/24/18 at 09:30 Furosemide (Lasix) 20 mg BID DIURETICS IV ; Start 09/24/18 at 18:00 VTE Prophylaxis Risk score (from Ns)>0 risk: 10 SCD applied (from Ns): Yes Lines/Catheters IV Catheter Type: Rebollar in Place: No Assessment/Plan Hospital Course Subjective -no acute complaints, however back in [id number] Objective Physical exam General: Patient is laying in bed and answers questions appropriately Mentation: Patient is alert and oriented somewhat, but baseline Head: Normocephalic atraumatic Eyes: EOMI, pupils reactive to light Neck: Supple, nontender, midline Respiratory: Clear to auscultation bilaterally Cardiovascular: regular rate, no obvious murmurs Gastrointestinal: non-tender to palpation, bowel sounds heard. Neurological: Moves all extremities spontaneously Skin: No new skin lesions Assessment/Plan 1. Acute hypoxic respiratory failure- improving - Patient weaned off high flow and tolerating NC well. Saturations >90% on 2L - Pulm on board and appreciate recommendations - Cardiology on board and continuing aggressive diuresis 2. A. fib with RVR - patient back in afib recently and Cardiology aware - cardiology to attempt new changes 3. Sepsis secondary to UTI and/or pneumonia- stable - Continue IV antibiotics and final cultures noted - On Zosyn day 7. Remains afebrile and WBC nl 4. NSTEMI - s/p LHC on 09/16 that showed triple vessel disease - CT surgery input appreciated and not recommending surgical intervention due to high risk. Family also opting not to proceed with surgical intervention - will continue aggressive medical management per Cardiology recommendations 5. Diabetes - A1c noted - ISS and accuchecks 6. HTN - BP stable 7. Normocytic anemia likely secondary chronic disease - Monitor - no need for transfusion at this time 8. Disposition - Patient Will need HR better controlled prior to d/c -Discussed with family, patient's family wishes to proceed with home hospice at this time, will stabilize patient from a heart rate perspective and then discharged to home hospice. ALEX HYLTON Sep 24, 2018 11:24
--- NOTE | 2018-09-24 14:16 | CONS ---
Consult Date/Type/Reason Admit Date/Time Sep 14, 2018 at 17:13 Initial Consult Date 09/15/18 Type of Consult Pulmonary Requesting Provider: HAYLEY ARREDONDO Date/Time of Note DATE: 09/24/18 TIME: 14:15 Subjective Still having episodes of A. fib RVR. Objective Vital Signs Date Temp Pulse Resp B/P (MAP) Pulse Ox O2 O2 Flow FiO2 Time Delivery Rate 09/24/18 78 16 98 21 13:45 09/24/18 97.9 146/75 07:07 (98) 09/23/18 Room Air 15:41 09/23/18 1.0 08:48 Intake and Output 09/23/18 09/23/18 09/24/18 1414:59 22:59 06:59 IntakeIntake Total 50 ml 410 ml 500 ml OutputOutput Total 700 ml 2 ml BalanceBalance 50 ml -290 ml 498 ml Exam Elderly lady comfortable at rest GENERAL: VITAL SIGNS: per chart NECK: Supple. No JVD or lymphadenopathy. CARDIAC EXAM: S1, S2. No added sounds or murmurs. CHEST: Diminished bilaterally ABDOMEN: Soft, nontender. No guarding or rebound. EXTREMITIES: No cyanosis, clubbing or edema. NEUROLOGIC: Generalized weakness. No focal deficits. Vent Setting Fraction of Inspired Oxygen pe: 21 Results/Medications Result Diagram: 09/24/18 0504 09/24/18 0504 Results 24 hrs Laboratory Tests Test 09/23/18 16:52 09/23/18 20:41 09/24/18 05:04 09/24/18 07:56 Bedside Glucose 174 126 157 White Blood Count 10.7 Red Blood Count 3.75 L Hemoglobin 11.6 L Hematocrit 36.1 L Mean Corpuscular 96.3 Volume Mean Corpuscular 30.9 Hemoglobin Mean Corpuscular 32.1 Hemoglobin Concent Red Cell 13.4 Distribution Width Platelet Count 261 Mean Platelet Volume 10.0 Immature 1.200 H Granulocytes % Neutrophils % 73.4 Lymphocytes % 15.4 Monocytes % 8.2 Eosinophils % 1.2 Basophils % 0.6 Nucleated Red Blood 0.0 Cells % Immature 0.130 H Granulocytes # Neutrophils # 7.9 H Lymphocytes # 1.7 Monocytes # 0.9 Eosinophils # 0.1 Basophils # 0.1 Nucleated Red Blood 0.0 Cells # Sodium Level 140 Potassium Level 4.3 Chloride Level 98 Carbon Dioxide Level 29 Anion Gap 13 Blood Urea Nitrogen 40 H Creatinine 1.50 H Est Glomerular Filtrat Rate mL/min Glucose Level 156 Calcium Level 10.0 Magnesium Level 1.9 Total Bilirubin 0.4 Direct Bilirubin 0.00 Indirect Bilirubin 0.4 Aspartate Amino 39 Transf (AST/SGOT) Alanine 169 H Aminotransferase (AL T/SGPT) Alkaline Phosphatase 99 B-Type Natriuretic 13222 H Peptide Total Protein 7.5 Albumin 3.4 Globulin 4.10 H Albumin/Globulin 0.82 Ratio Digoxin Level < 0.4 L Test 09/24/18 12:10 Bedside Glucose 192 Medications Current Medications IV Flush (NS 3 ml) 3 ml PER PROTOCOL IV ; Start 09/14/18 at 19:30 Ondansetron HCl (Zofran Inj) 4 mg Q6H PRN IV NAUSEA/VOMITING; Start 09/14/18 at 19:30 Acetaminophen (Tylenol Tab) 650 mg Q6H PRN PO .PAIN 1-3 OR TEMP; Start 09/14/18 at 19:30 Acetaminophen/ Hydrocodone Bitart ([place] (5/325)) 1 tab Q6H PRN PO .MOD PAIN 4- 6 Last administered on 09/21/18 23:33; Admin Dose 1 TAB; Start 09/14/18 at 19:30 Morphine Sulfate (morphine) 2 mg Q4H PRN IV .SEVERE PAIN 7-10 Last administered on 09/17/18 13:38; Admin Dose 2 MG; Start 09/14/18 at 19:30 Docusate Sodium (Colace) 100 mg Q12H PRN PO .CONSTIPATION Last administered on 09/21/18 08:12; Admin Dose 100 MG; Start 09/14/18 at 19:30 Zolpidem Tartrate (Ambien) 5 mg QHS PRN PO .INSOMNIA Last administered on 09/22/18 01:04; Admin Dose 5 MG; Start 09/14/18 at 19:30 Aspirin (Aspirin) 81 mg DAILY PO Last administered on 09/24/18 08:25; Admin Dose 81 MG; Start 09/15/18 at 09:00 Budesonide (Pulmicort (Neb)) 0.5 mg BID RESP THERAPY HHN Last administered on 09/24/18 08:05; Admin Dose 0.5 MG; Start 09/15/18 at 09:00 Albuterol/ Ipratropium (Duoneb) 3 ml Q2H RESP THERAPY PRN HHN shortness of breath Last administered on 09/16/18 11:25; Admin Dose 3 ML; Start 09/15/18 at 00:00 Albuterol/ Ipratropium (Duoneb) 3 ml Q6H RESP THERAPY HHN Last administered on 09/24/18 13:45; Admin Dose 3 ML; Start 09/15/18 at 02:00 Nitroglycerin (Nitroglycerin (Sl Tab) 0.4 Mg) 1 tab Q5M PRN SL ANGINA; Start 09/15/18 at 00:00 Piperacillin Sod/ Tazobactam Sod 50 ml @ 100 mls/hr Q6 IVPB Last administered on 09/24/18 12:41; Admin Dose 100 MLS/HR; Start 09/15/18 at 00:16 Atorvastatin Calcium (Lipitor) 80 mg HS PO Last administered on 09/23/18at 20:44; Admin Dose 80 MG; Start 09/15/18 at 21:00 Miscellaneous Information 1 ea NOTE XX ; Start 09/16/18 at 12:00 Glucose (Glutose) 15 gm Q15M PRN PO DECREASED GLUCOSE; Start 09/16/18 at 12:00 Glucose (Glutose) 22.5 gm Q15M PRN PO DECREASED GLUCOSE; Start 09/16/18 at 12:00 Dextrose (D50w Syringe) 25 ml Q15M PRN IV DECREASED GLUCOSE; Start 09/16/18 at 12:00 Dextrose (D50w Syringe) 50 ml Q15M PRN IV DECREASED GLUCOSE; Start 09/16/18 at 12:00 Glucagon (Glucagen) 1 mg Q15M PRN IM DECREASED GLUCOSE; Start 09/16/18 at 12:00 Glucose (Glutose) 15 gm Q15M PRN BUCCAL DECREASED GLUCOSE; Start 09/16/18 at 12:00 Lisinopril (Zestril) 5 mg BID PO Last administered on 09/24/18 08:25; Admin Dose 5 MG; Start 09/19/18 at 21:00 Spironolactone (Aldactone) 25 mg DAILY PO Last administered on 09/24/18 08:24; Admin Dose 25 MG; Start 09/19/18 at 17:30 Enalaprilat (Vasotec Iv) 0.625 mg Q6H PRN IV ELEVATED SYSTOLIC BP Last administered on 09/20/18 09:03; Admin Dose 0.625 MG; Start 09/20/18 at 00:00 Insulin Aspart (Novolog Insulin Pen) (Adult SC Insulin - Mild Algorithm)... AC MEALS AND BEDTIME SC Last administered on 09/24/18 12:18; Admin Dose 2 UNIT; Start 09/20/18 at 17:30 Diagnostic Test (Pha) (Accu-Chek) 1 ea 02 XX Last administered on 09/24/18 02:04; Admin Dose 1 EA; Start 09/21/18 at 02:00 Diltiazem HCl (Cardizem Iv) 10 mg Q1H PRN IV ELEVATED HEART RATE Last ad ministered on 09/22/18at 17:17; Admin Dose 10 MG; Start 09/21/18 at 02:00 Apixaban (Eliquis) 5 mg BID PO Last administered on 09/24/18 08:24; Admin Dose 5 MG; Start 09/21/18 at 21:00 Bisacodyl (Dulcolax) 10 mg DAILY PRN PO CONSTIPATION Last administered on 09/21/18at 20:42; Admin Dose 10 MG; Start 09/21/18 at 16:00 Metoprolol Succinate (Toprol Xl) 25 mg BID PO Last administered on 09/24/18at 08:24; Admin Dose 25 MG; Start 09/22/18 at 21:00 Amiodarone HCl (Cordarone) 200 mg BID PO Last administered on 09/24/18at 08:25; Admin Dose 200 MG; Start 09/22/18 at 21:00 Alteplase, Recombinant (Cathflo (Activase)) 2 mg MAY REPEAT X1 PRN CATHETER IF CATHETER REMAINS OCCULUDED; Start 09/24/18 at 07:00 Amiodarone HCl 200 ml @ 16.667 mls/ hr Q12H IV Last administered on 09/24/18at 11:19; Admin Dose 16.667 MLS/HR; Start 09/24/18 at 09:30 Furosemide (Lasix) 20 mg BID DIURETICS IV ; Start 09/24/18 at 18:00 Assessment/Plan Hospital Course (Demo Recall) IMPRESSION 1. Status post septic shock, likely secondary to urinary tract infection. 2. Possible community-acquired pneumonia. 3. Pulmonary edema with acute hypoxemic respiratory failure. Progressive hypoxemia secondary to pulmonary edema, slowly improving. 4. Renal insufficiency, likely acute tubular necrosis injury. 5. Non-ST elevation [place], ischemic cardia myopathy with severe aortic stenosis status post cardiac cath family declined coronary artery bypass graft surgery PLAN: 1. Continue broad-spectrum antibiotics. 2. Aspiration precautions 3. Cardiac recs 4. decrease o2 as tolerated 5. DVT and GI prophylaxis. 6. PT eval. Rate control and once stable discharge or ARU ALEN FLORES MD, [facility] Sep 24, 2018 14:16
[2018-09-24] MEDS: FUROSEMIDE 20 MG INJ IV SCH (17:41)
[2018-09-24] MEDS: ATORVASTATIN 80 MG TAB PO SCH (20:26)
[2018-09-25] VITALS (14 sets, daily range): BP systolic 82–139; BP diastolic 49–89; PULSE 74–101; RESP 17–22
[2018-09-25] MEDS: ALBUTEROL/IPRATROPIUM (NEB) 3 ML AMP HHN SCH ×4 (01:37→21:23)
[2018-09-25] MEDS: PIPER-TAZO 2.25 GM/NS 50 ML IVPB SCH ×3 (02:13→11:31)
[2018-09-25] MEDS: ACCUCHECK AT 2AM (Patients on SS coverage) XX SCH (02:13)
[2018-09-25] MEDS: FUROSEMIDE 20 MG INJ IV SCH (05:30)
--- NOTE | 2018-09-25 07:43 | CONS ---
Consult Date/Type/Reason Admit Date/Time Sep 14, 2018 at 17:13 Initial Consult Date 09/15/18 Type of Consultation: cv Requesting Provider: HAYLEY ARREDONDO Date/Time of Note DATE: 09/25/18 TIME: 07:40 Subjective Interventional cardiology follow-up progress note Subjective: Case discussed with staff. and Telemetry was reviewed. pt is in atrial fibrillation with CONTROLLED HR No bleeding is reported no report of chest pain or pressure pt with less hypoxemia. off BIPAP but still c/o sob. Breathing appears to be improving Objective: General: Elderly female. Appears older than stated age with respiratory distress on BiPAP now HEENT: NC/AT. pupils are equal. round. NECK: NO JVD. no stridor. CV: Irregularly irregular . systolic murmur; no gallop or rubs. PULM: no wheezing . Less rhonchi. GI: SOFT, NT, ND, no rebound or guarding Extremity: trace B/L LE edema. no clubbing. neuro: Comfortably sleeping Psych: calm and pleasant rectal: deferred X-ray done 09/14/2018 shows:Cardiomegaly, with increased mild failure. CXR 09/16: Cardiomegaly with mild pulmonary edema and small pleural effusions.Calcified atherosclerosis of the thoracic aorta. Chest x-ray done 09/17/2018 shows: Stable cardiomegaly and vascular congestion with persistent left pleural effusion. Superimposed infection cannot be excluded. . EKG was personally reviewed which shows: Atrial fibrillation/junctional rhythm with left bundle branch block Echocardiogram was personally reviewed shows: Moderate left ventricular systolic dysfunction. Ejection fraction is visually estimated at 30-35 %. Tissue Doppler/Mitral Doppler indices are consistent with restrictive physiology with markedly elevated left atrial pressure (Stage III-IV diastolic dysfunction). Multiple segmental wall motion abnormalities. There is moderate enlargement of left atrium. There is mild enlargement of right atrium. Moderate mitral leaflet calcification. Moderate mitral annular calcification. Moderate to severe mitral valve regurgitation. Aortic valve not well visualized. Moderate to severe aortic stenosis however due to low cardiac output severity of aortic stenosis is underestimated. Aortic valve area 0.90 cm2. Mild to moderate aortic valve regurgitation. Normal appearance of the tricuspid valve. There is moderate tricuspid regurgitation. Dilated inferior vena cava with poor inspiratory collapse consistent with elevated right atrial pressures. Objective Vitals Vital Signs Date Temp Pulse Resp B/P (MAP) Pulse Ox O2 O2 Flow FiO2 Time Delivery Rate 09/25/18 97.8 88 22 139/89 96 Room Air 07:38 (106) 09/25/18 1.0 04:32 09/25/18 21 01:47 Intake and Output 09/24/18 09/24/18 09/25/18 1515:00 23:00 07:00 IntakeIntake Total 450 ml 340 ml OutputOutput Total 1 ml 2 ml BalanceBalance 449 ml 338 ml Results/Medications Result Diagram: 09/25/18 0608 09/25/18 0608 Results 24 hrs Laboratory Tests Test 09/24/18 07:56 09/24/18 12:10 09/24/18 17:38 09/24/18 20:24 Bedside Glucose 157 192 177 191 Test 09/25/18 02:07 09/25/18 06:08 09/25/18 07:24 Bedside Glucose 183 187 White Blood Count 10.1 Red Blood Count 3.62 L Hemoglobin 11.3 L Hematocrit 35.3 L Mean Corpuscular 97.5 Volume Mean Corpuscular 31.2 Hemoglobin Mean Corpuscular 32.0 Hemoglobin Concent Red Cell 13.5 Distribution Width Platelet Count 282 Mean Platelet Volume 9.6 Immature 0.900 H Granulocytes % Neutrophils % 74.0 Lymphocytes % 14.9 L Monocytes % 8.0 Eosinophils % 1.7 Basophils % 0.5 Nucleated Red Blood 0.0 Cells % Immature 0.090 H Granulocytes # Neutrophils # 7.5 Lymphocytes # 1.5 Monocytes # 0.8 Eosinophils # 0.2 Basophils # 0.1 Nucleated Red Blood 0.0 Cells # Sodium Level 139 Potassium Level 4.2 Chloride Level 101 Carbon Dioxide Level 27 Anion Gap 11 Blood Urea Nitrogen 41 H Creatinine 1.74 H Est Glomerular Filtrat Rate mL/min Glucose Level 181 Calcium Level 9.8 Magnesium Level 1.8 Total Bilirubin 0.2 Direct Bilirubin 0.00 Indirect Bilirubin 0.2 Aspartate Amino 33 Transf (AST/SGOT) Alanine 123 H Aminotransferase (AL T/SGPT) Alkaline Phosphatase 103 B-Type Natriuretic 32370 H Peptide Total Protein 7.4 Albumin 3.3 Globulin 4.10 H Albumin/Globulin 0.80 Ratio Digoxin Level 1.6 # Home Meds Reported Medications Valsartan* (Diovan*) 80 Mg Tablet, 80 MG PO DAILY, TAB 09/23/18 Simvastatin (Simvastatin) 20 Mg Tablet, 20 MG PO DAILY, #30 TAB 09/23/18 Rosiglitazone Maleate* (Avandia*) 4 Mg Tablet, 8 MG PO DAILY, TAB 09/23/18 Nifedipine* (Nifedipine ER*) 30 Mg Tablet.sa, 30 MG PO DAILY, TAB.SA 09/23/18 Nifedipine* (Nifedipine ER*) 60 Mg Tablet.sa, 60 MG PO DAILY, TAB.SA 09/23/18 Metformin Hcl* (Metformin Hcl*) 1,000 Mg Tablet, 1000 MG PO WITH BREAKFAST, #30 TAB 09/23/18 Folic Acid* (Folic Acid*) 1 Mg Tablet, 1 MG PO DAILY, TAB 09/23/18 Diclofenac Sodium* (Diclofenac Sodium*) 25 Mg Tablet.dr, 25 MG PO DAILY, #60 TAB 09/23/18 Cyclobenzaprine Hcl* (Cyclobenzaprine Hcl*) 10 Mg Tablet, 10 MG PO TID, #90 TAB 09/23/18 Carvedilol* (Coreg*) 25 Mg Tablet, 25 MG PO BID, #60 TAB 09/23/18 Aspirin* (Aspirin* EC) 81 Mg Tablet.dr, 81 MG PO DAILY, TAB 09/23/18 Discontinued Reported Medications Spironolactone* (Aldactone*) 25 Mg Tablet, 12.5 MG PO DAILY, #60 TAB 09/22/18 Sacubitril/Valsartan (Entresto 49 mg-51 mg Tablet) 1 Each Tablet, 1 EACH PO BID, TAB 09/22/18 Omeprazole* (Omeprazole*) 20 Mg Capsule.dr, 20 MG PO DAILY, #30 CAP 09/22/18 Levothyroxine Sodium* (Synthroid*) 100 Mcg Tablet, 100 MCG PO BEFORE BREAKFAST, #30 TAB 09/22/18 Furosemide* (Lasix*) 40 Mg Tablet, 40 MG PO 4X A WEEK, TAB 09/22/18 Ferrous Sulfate (Ferrous Sulfate) 325 Mg Tablet.dr, 325 MG PO BID 09/22/18 Carvedilol* (Coreg*) 6.25 Mg Tablet, 6.25 MG PO BID, #60 TAB 09/22/18 Atorvastatin Calcium (Atorvastatin Calcium) 10 Mg Tablet, 10 MG PO QHS, #30 TAB 09/22/18 Apixaban* (Eliquis*) 2.5 Mg Tablet, 2.5 MG PO BID, TAB 09/22/18 Rosiglitazone Maleate* (Avandia*) 8 Mg Tablet 10/25/10 Cyclobenzaprine Hcl* (Cyclobenzaprine Hcl*) 10 Mg Tablet 10/25/10 Diclofenac Sodium* (Voltaren*) 25 Mg Tablet. 10/25/10 Carvedilol* (Carvedilol*) 25 Mg Tablet 10/25/10 Valsartan* (Diovan*) 80 Mg Tablet 10/25/10 Simvastatin* (Zocor*) 20 Mg Tablet 10/25/10 Folic Acid* (Folic Acid*) 1 Mg Tablet 10/25/10 Metformin Hcl* (Metformin Hcl*) 1,000 Mg Tablet 10/25/10 Nifedipine (Nifedipine XL) 30 Mg/Bottle Tab.osm.24 10/25/10 Aspirin (Aspirin) 81 Mg Tablet 10/25/10 Nifedipine* (Nifedipine ER*) 60 Mg Tablet.sa 10/25/10 Medications Current Medications IV Flush (NS 3 ml) 3 ml PER PROTOCOL IV ; Start 09/14/18 at 19:30 Ondansetron HCl (Zofran Inj) 4 mg Q6H PRN IV NAUSEA/VOMITING; Start 09/14/18 at 19:30 Acetaminophen (Tylenol Tab) 650 mg Q6H PRN PO .PAIN 1-3 OR TEMP; Start 09/14/18 at 19:30 Acetaminophen/ Hydrocodone Bitart ([place] (5/325)) 1 tab Q6H PRN PO .MOD PAIN 4- 6 Last administered on 09/21/18at 23:33; Admin Dose 1 TAB; Start 09/14/18 at 19:30 Morphine Sulfate (morphine) 2 mg Q4H PRN IV .SEVERE PAIN 7-10 Last administered on 09/17/18at 13:38; Admin Dose 2 MG; Start 09/14/18 at 19:30 Docusate Sodium (Colace) 100 mg Q12H PRN PO .CONSTIPATION Last administered on 09/21/18 08:12; Admin Dose 100 MG; Start 09/14/18 at 19:30 Zolpidem Tartrate (Ambien) 5 mg QHS PRN PO .INSOMNIA Last administered on 09/22/18 01:04; Admin Dose 5 MG; Start 09/14/18 at 19:30 Aspirin (Aspirin) 81 mg DAILY PO Last administered on 09/24/18 08:25; Admin Dose 81 MG; Start 09/15/18 at 09:00 Budesonide (Pulmicort (Neb)) 0.5 mg BID RESP THERAPY HHN Last administered on 09/24/18 20:19; Admin Dose 0.5 MG; Start 09/15/18 at 09:00 Albuterol/ Ipratropium (Duoneb) 3 ml Q2H RESP THERAPY PRN HHN shortness of breath Last administered on 09/16/18 11:25; Admin Dose 3 ML; Start 09/15/18 at 00:00 Albuterol/ Ipratropium (Duoneb) 3 ml Q6H RESP THERAPY HHN Last administered on 09/25/18 01:37; Admin Dose 3 ML; Start 09/15/18 at 02:00 Nitroglycerin (Nitroglycerin (Sl Tab) 0.4 Mg) 1 tab Q5M PRN SL ANGINA; Start 09/15/18 at 00:00 Piperacillin Sod/ Tazobactam Sod 50 ml @ 100 mls/hr Q6 IVPB Last administered on 09/25/18 05:30; Admin Dose 100 MLS/HR; Start 09/15/18 at 00:16 Atorvastatin Calcium (Lipitor) 80 mg HS PO Last administered on 09/24/18 20:26; Admin Dose 80 MG; Start 09/15/18 at 21:00 Miscellaneous Information 1 ea NOTE XX ; Start 09/16/18 at 12:00 Glucose (Glutose) 15 gm Q15M PRN PO DECREASED GLUCOSE; Start 09/16/18 at 12:00 Glucose (Glutose) 22.5 gm Q15M PRN PO DECREASED GLUCOSE; Start 09/16/18 at 12:00 Dextrose (D50w Syringe) 25 ml Q15M PRN IV DECREASED GLUCOSE; Start 09/16/18 at 12:00 Dextrose (D50w Syringe) 50 ml Q15M PRN IV DECREASED GLUCOSE; Start 09/16/18 at 12:00 Glucagon (Glucagen) 1 mg Q15M PRN IM DECREASED GLUCOSE; Start 09/16/18 at 12:00 Glucose (Glutose) 15 gm Q15M PRN BUCCAL DECREASED GLUCOSE; Start 09/16/18 at 12:00 Lisinopril (Zestril) 5 mg BID PO Last administered on 09/24/18 20:27; Admin Dose 5 MG; Start 09/19/18 at 21:00 Spironolactone (Aldactone) 25 mg DAILY PO Last administered on 09/24/18 08:24; Admin Dose 25 MG; Start 09/19/18 at 17:30 Enalaprilat (Vasotec Iv) 0.625 mg Q6H PRN IV ELEVATED SYSTOLIC BP Last administered on 09/20/18 09:03; Admin Dose 0.625 MG; Start 09/20/18 at 00:00 Insulin Aspart (Novolog Insulin Pen) (Adult SC Insulin - Mild Algorithm)... AC MEALS AND BEDTIME SC Last administered on 09/24/18 20:57; Admin Dose 1 UNIT; Start 09/20/18 at 17:30 Diagnostic Test (Pha) (Accu-Chek) 1 ea 02 XX Last administered on 09/25/18 02:13; Admin Dose 1 EA; Start 09/21/18 at 02:00 Diltiazem HCl (Cardizem Iv) 10 mg Q1H PRN IV ELEVATED HEART RATE Last administ ered on 09/22/18 17:17; Admin Dose 10 MG; Start 09/21/18 at 02:00 Apixaban (Eliquis) 5 mg BID PO Last administered on 09/24/18 20:26; Admin Dose 5 MG; Start 09/21/18 at 21:00 Bisacodyl (Dulcolax) 10 mg DAILY PRN PO CONSTIPATION Last administered on 09/21/18 20:42; Admin Dose 10 MG; Start 09/21/18 at 16:00 Metoprolol Succinate (Toprol Xl) 25 mg BID PO Last administered on 09/24/18 20:27; Admin Dose 25 MG; Start 09/22/18 at 21:00 Amiodarone HCl (Cordarone) 200 mg BID PO Last administered on 09/24/18 20:26; Admin Dose 200 MG; Start 09/22/18 at 21:00 Alteplase, Recombinant (Cathflo (Activase)) 2 mg MAY REPEAT X1 PRN CATHETER IF CATHETER REMAINS OCCULUDED; Start 09/24/18 at 07:00 Amiodarone HCl 200 ml @ 16.667 mls/ hr Q12H IV Last administered on 09/24/18at 23:02; Admin Dose 16.667 MLS/HR; Start 09/24/18 at 09:30 Furosemide (Lasix) 20 mg BID DIURETICS IV Last administered on 09/25/18at 05:30; Admin Dose 20 MG; Start 09/24/18 at 18:00 Assessment/Plan Hospital Course (Demo Recall) 1. 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 Congestive heart failure appears acute secondary systolic heart failure 3. Sepsis and shock 4. Arrhythmias with proximal atrial fibrillation /junctional rhythm 5. Severe cardiomyopathy ischemic 6. DM 7. HX HTN now hypotensive and shock 8. UTI 9. ? pneumonia 10. Acute renal failure 11. Anemia 12. Valvular heart disease 13. Transaminitis/liver failure: Probably related to hepatic congestion; improved now Recommendations: Continue with Eliquis . check dig level in AM Antibiotic management as internal medicine. Blood cultures are negative so far Respiratory care will be continued. O2 and BiPAP as needed Diabetic control as per internal medicine. Insulin. CT surgery input is appreciated. Continue with Aldactone and lisinopril Cont Toprol-XL will CONT amiodarone drip for now for another 24 hours and if by tomorrow does not convert back to normal sinus rhythm. Will decrease Lasix to daily only and monitor renal function Thank you for his referral. We will continue to follow along with you LUIS A AGUILERA MD [facility] LUIS A AGUILERA MD Sep 25, 2018 07:43
[2018-09-25] MEDS: Insulin NOVOLOG SS MILD Algorithm (SS with meals and bedtime) SC SCH ×4 (08:21→21:00)
[2018-09-25] MEDS: LISINOPRIL 5 MG TAB PO SCH (08:23)
[2018-09-25] MEDS: ASPIRIN 81 MG TAB PO SCH (08:23)
[2018-09-25] MEDS: SPIRONOLACTONE 25 MG TAB PO SCH (08:23)
[2018-09-25] MEDS: APIXABAN 5 MG TABLET PO SCH ×2 (08:23→20:24)
[2018-09-25] MEDS: METOPROLOL (XL) 25 MG TAB PO SCH (08:23)
[2018-09-25] MEDS: AMIODARONE 200 ML IV SCH ×2 (08:24→11:33)
[2018-09-25] MEDS ORDERED: FUROSEMIDE 20 MG INJ IV SCH (09:00)
[2018-09-25] MEDS: AMIODARONE 200 MG TAB PO SCH ×2 (09:39→21:00)
--- NOTE | 2018-09-25 10:28 | CONS ---
Assessment/Plan Assessment/Plan Assessment/Plan (Daily) 1. acute Renal failure 2/2 Hemodynamics from CHF 2. acute CHF, possibly systolic with low EF 3. atrial fibrillation with RVR 5. septich shock possibly due to UTI 6. UTI with Urine cx growing Group B streptoccoci 7. Acute NSTEMI s/p LHC on 09/15/18 that showed multivessel obstructive CAD 8. h/o HTN 9. H/o DM II 10. H/o HL 11. metabolic acidosis due to Septic shock + renal failure 12. atrial fibrillation with RVR Plan: BUN/Cr 41/1.74, K normal today pt started on amiodarone gtt for rate control, Eliquis for anticoagulation S/p LHC that showed multivessel obstructive CAD- s/p CT surgery evaluation, too high risk for surgery , family wants to wait, medical management for now lisinopril 5 gm BID, aldactone 25 mg po daily, MTP 25 mg BID, BP stable with current regimen IV abx zosyn for sepsis, renally dose all abx and monitor electrolytes will follow up Consultation Date/Type/Reason Admit Date/Time Sep 14, 2018 at 17:13 Initial Consult Date 09/15/18 Type of Consult NEPHROLOGY Requesting Provider: HAYLEY ARREDONDO Date/Time of Note DATE: 09/25/18 TIME: 10:28 Exam/Review of Systems Exam Vitals Vital Signs Date Temp Pulse Resp B/P (MAP) Pulse Ox O2 O2 Flow FiO2 Time Delivery Rate 09/25/18 95/61 (72) 10:14 09/25/18 97 08:12 09/25/18 94 21 08:03 09/25/18 16 08:02 09/25/18 97.8 Room Air 07:38 09/25/18 1.0 04:32 Intake and Output 09/24/18 09/24/18 09/25/18 1515:00 23:00 07:00 IntakeIntake Total 450 ml 340 ml OutputOutput Total 1 ml 2 ml BalanceBalance 449 ml 338 ml Exam Constitutional: alert, awake Respiratory: Bibasilar crackles, no wheezing Cardiovascular: regular rate and rhythm, nl pulses Gastrointestinal: soft, non-tender Extremities: normal pulses Neurological: Non focal Lymph: nl lymph nodes Results Result Diagram: 09/25/18 0608 09/25/18 0608 Results 24hrs Laboratory Tests Test 09/24/18 12:10 09/24/18 17:38 09/24/18 20:24 09/25/18 02:07 Bedside Glucose 192 177 191 183 Test 09/25/18 06:08 09/25/18 07:24 White Blood Count 10.1 Red Blood Count 3.62 L Hemoglobin 11.3 L Hematocrit 35.3 L Mean Corpuscular 97.5 Volume Mean Corpuscular 31.2 Hemoglobin Mean Corpuscular 32.0 Hemoglobin Concent Red Cell 13.5 Distribution Width Platelet Count 282 Mean Platelet Volume 9.6 Immature 0.900 H Granulocytes % Neutrophils % 74.0 Lymphocytes % 14.9 L Monocytes % 8.0 Eosinophils % 1.7 Basophils % 0.5 Nucleated Red Blood 0.0 Cells % Immature 0.090 H Granulocytes # Neutrophils # 7.5 Lymphocytes # 1.5 Monocytes # 0.8 Eosinophils # 0.2 Basophils # 0.1 Nucleated Red Blood 0.0 Cells # Sodium Level 139 Potassium Level 4.2 Chloride Level 101 Carbon Dioxide Level 27 Anion Gap 11 Blood Urea Nitrogen 41 H Creatinine 1.74 H Est Glomerular Filtrat Rate mL/min Glucose Level 181 Calcium Level 9.8 Magnesium Level 1.8 Total Bilirubin 0.2 Direct Bilirubin 0.00 Indirect Bilirubin 0.2 Aspartate Amino 33 Transf (AST/SGOT) Alanine 123 H Aminotransferase (AL T/SGPT) Alkaline Phosphatase 103 B-Type Natriuretic 40096 H Peptide Total Protein 7.4 Albumin 3.3 Globulin 4.10 H Albumin/Globulin 0.80 Ratio Digoxin Level 1.6 # Bedside Glucose 187 Medications Medication Current Medications IV Flush (NS 3 ml) 3 ml PER PROTOCOL IV ; Start 09/14/18 at 19:30 Ondansetron HCl (Zofran Inj) 4 mg Q6H PRN IV NAUSEA/VOMITING; Start 09/14/18 at 19:30 Acetaminophen (Tylenol Tab) 650 mg Q6H PRN PO .PAIN 1-3 OR TEMP; Start 09/14/18 at 19:30 Acetaminophen/ Hydrocodone Bitart ([place] (5/325)) 1 tab Q6H PRN PO .MOD PAIN 4- 6 Last administered on 09/21/18at 23:33; Admin Dose 1 TAB; Start 09/14/18 at 19:30 Morphine Sulfate (morphine) 2 mg Q4H PRN IV .SEVERE PAIN 7-10 Last administered on 09/17/18 13:38; Admin Dose 2 MG; Start 09/14/18 at 19:30 Docusate Sodium (Colace) 100 mg Q12H PRN PO .CONSTIPATION Last administered on 09/21/18 08:12; Admin Dose 100 MG; Start 09/14/18 at 19:30 Zolpidem Tartrate (Ambien) 5 mg QHS PRN PO .INSOMNIA Last administered on 09/22/18 01:04; Admin Dose 5 MG; Start 09/14/18 at 19:30 Aspirin (Aspirin) 81 mg DAILY PO Last administered on 09/25/18 08:23; Admin Dose 81 MG; Start 09/15/18 at 09:00 Budesonide (Pulmicort (Neb)) 0.5 mg BID RESP THERAPY HHN Last administered on 09/24/18 20:19; Admin Dose 0.5 MG; Start 09/15/18 at 09:00 Albuterol/ Ipratropium (Duoneb) 3 ml Q2H RESP THERAPY PRN HHN shortness of breath Last administered on 09/16/18 11:25; Admin Dose 3 ML; Start 09/15/18 at 00:00 Albuterol/ Ipratropium (Duoneb) 3 ml Q6H RESP THERAPY HHN Last administered on 09/25/18 08:00; Admin Dose 3 ML; Start 09/15/18 at 02:00 Nitroglycerin (Nitroglycerin (Sl Tab) 0.4 Mg) 1 tab Q5M PRN SL ANGINA; Start 09/15/18 at 00:00 Piperacillin Sod/ Tazobactam Sod 50 ml @ 100 mls/hr Q6 IVPB Last administered on 09/25/18 05:30; Admin Dose 100 MLS/HR; Start 09/15/18 at 00:16 Atorvastatin Calcium (Lipitor) 80 mg HS PO Last administered on 09/24/18 20:26; Admin Dose 80 MG; Start 09/15/18 at 21:00 Miscellaneous Information 1 ea NOTE XX ; Start 09/16/18 at 12:00 Glucose (Glutose) 15 gm Q15M PRN PO DECREASED GLUCOSE; Start 09/16/18 at 12:00 Glucose (Glutose) 22.5 gm Q15M PRN PO DECREASED GLUCOSE; Start 09/16/18 at 12:00 Dextrose (D50w Syringe) 25 ml Q15M PRN IV DECREASED GLUCOSE; Start 09/16/18 at 12:00 Dextrose (D50w Syringe) 50 ml Q15M PRN IV DECREASED GLUCOSE; Start 09/16/18 at 12:00 Glucagon (Glucagen) 1 mg Q15M PRN IM DECREASED GLUCOSE; Start 09/16/18 at 12:00 Glucose (Glutose) 15 gm Q15M PRN BUCCAL DECREASED GLUCOSE; Start 09/16/18 at 12:00 Lisinopril (Zestril) 5 mg BID PO Last administered on 09/25/18 08:23; Admin Dose 5 MG; Start 09/19/18 at 21:00 Spironolactone (Aldactone) 25 mg DAILY PO Last administered on 09/25/18 08:23; Admin Dose 25 MG; Start 09/19/18 at 17:30 Enalaprilat (Vasotec Iv) 0.625 mg Q6H PRN IV ELEVATED SYSTOLIC BP Last administered on 09/20/18 09:03; Admin Dose 0.625 MG; Start 09/20/18 at 00:00 Insulin Aspart (Novolog Insulin Pen) (Adult SC Insulin - Mild Algorithm)... AC MEALS AND BEDTIME SC Last administered on 09/25/18 08:21; Admin Dose 2 UNIT; Start 09/20/18 at 17:30 Diagnostic Test (Pha) (Accu-Chek) 1 ea 02 XX Last administered on 09/25/18at 02:13; Admin Dose 1 EA; Start 09/21/18 at 02:00 Diltiazem HCl (Cardizem Iv) 10 mg Q1H PRN IV ELEVATED HEART RATE Last administered on 09/22/18 17:17; Admin Dose 10 MG; Start 09/21/18 at 02:00 Apixaban (Eliquis) 5 mg BID PO Last administered on 09/25/18 08:23; Admin Dose 5 MG; Start 09/21/18 at 21:00 Bisacodyl (Dulcolax) 10 mg DAILY PRN PO CONSTIPATION Last administered on 09/21/18at 20:42; Admin Dose 10 MG; Start 09/21/18 at 16:00 Metoprolol Succinate (Toprol Xl) 25 mg BID PO Last administered on 09/25/18at 08:23; Admin Dose 25 MG; Start 09/22/18 at 21:00 Amiodarone HCl (Cordarone) 200 mg BID PO Last administered on 09/25/18at 09:39; Admin Dose 200 MG; Start 09/22/18 at 21:00 Alteplase, Recombinant (Cathflo (Activase)) 2 mg MAY REPEAT X1 PRN CATHETER IF CATHETER REMAINS OCCULUDED; Start 09/24/18 at 07:00 Amiodarone HCl 200 ml @ 16.667 mls/ hr Q12H IV Last administered on 09/24/18at 23:02; Admin Dose 16.667 MLS/HR; Start 09/24/18 at 09:30 Furosemide (Lasix) 20 mg DAILY IV Last administered on 09/25/18at 08:23; Admin Dose 20 MG; Start 09/25/18 at 09:00 BEKA HARPER MD Sep 25, 2018 10:28
[2018-09-25] MEDS: BUDESONIDE (NEB) 0.5MG/2ML AMP HHN SCH ×2 (10:39→21:23)
--- NOTE | 2018-09-25 12:12 | CONS ---
Consult Date/Type/Reason Admit Date/Time Sep 14, 2018 at 17:13 Initial Consult Date 09/15/18 Type of Consult Pulmonary Requesting Provider: HAYLEY ARREDONDO Date/Time of Note DATE: 09/25/18 TIME: 12:11 Subjective Patient stable this morning no respiratory distress on room air. Objective Vital Signs Date Temp Pulse Resp B/P (MAP) Pulse Ox O2 O2 Flow FiO2 Time Delivery Rate 09/25/18 76 12:06 09/25/18 97.5 22 92/56 (68) 96 Room Air 11:23 09/25/18 21 10:44 09/25/18 1.0 04:32 Intake and Output 09/24/18 09/24/18 09/25/18 1515:00 23:00 07:00 IntakeIntake Total 450 ml 340 ml OutputOutput Total 1 ml 2 ml BalanceBalance 449 ml 338 ml Exam Elderly lady comfortable at rest GENERAL: VITAL SIGNS: per chart NECK: Supple. No JVD or lymphadenopathy. CARDIAC EXAM: S1, S2. No added sounds or murmurs. CHEST: Diminished bilaterally ABDOMEN: Soft, nontender. No guarding or rebound. EXTREMITIES: No cyanosis, clubbing or edema. NEUROLOGIC: Generalized weakness. No focal deficits. Vent Setting Fraction of Inspired Oxygen pe: 21 Results/Medications Result Diagram: 09/25/18 0608 09/25/18 0608 Results 24 hrs Laboratory Tests Test 09/24/18 17:38 09/24/18 20:24 09/25/18 02:07 09/25/18 06:08 Bedside Glucose 177 191 183 White Blood Count 10.1 Red Blood Count 3.62 L Hemoglobin 11.3 L Hematocrit 35.3 L Mean Corpuscular 97.5 Volume Mean Corpuscular 31.2 Hemoglobin Mean Corpuscular 32.0 Hemoglobin Concent Red Cell 13.5 Distribution Width Platelet Count 282 Mean Platelet Volume 9.6 Immature 0.900 H Granulocytes % Neutrophils % 74.0 Lymphocytes % 14.9 L Monocytes % 8.0 Eosinophils % 1.7 Basophils % 0.5 Nucleated Red Blood 0.0 Cells % Immature 0.090 H Granulocytes # Neutrophils # 7.5 Lymphocytes # 1.5 Monocytes # 0.8 Eosinophils # 0.2 Basophils # 0.1 Nucleated Red Blood 0.0 Cells # Sodium Level 139 Potassium Level 4.2 Chloride Level 101 Carbon Dioxide Level 27 Anion Gap 11 Blood Urea Nitrogen 41 H Creatinine 1.74 H Est Glomerular Filtrat Rate mL/min Glucose Level 181 Calcium Level 9.8 Magnesium Level 1.8 Total Bilirubin 0.2 Direct Bilirubin 0.00 Indirect Bilirubin 0.2 Aspartate Amino 33 Transf (AST/SGOT) Alanine 123 H Aminotransferase (AL T/SGPT) Alkaline Phosphatase 103 B-Type Natriuretic 28057 H Peptide Total Protein 7.4 Albumin 3.3 Globulin 4.10 H Albumin/Globulin 0.80 Ratio Digoxin Level 1.6 # Test 09/25/18 07:24 09/25/18 11:26 Bedside Glucose 187 283 H Medications Current Medications IV Flush (NS 3 ml) 3 ml PER PROTOCOL IV ; Start 09/14/18 at 19:30 Ondansetron HCl (Zofran Inj) 4 mg Q6H PRN IV NAUSEA/VOMITING; Start 09/14/18 at 19:30 Acetaminophen (Tylenol Tab) 650 mg Q6H PRN PO .PAIN 1-3 OR TEMP; Start 09/14/18 at 19:30 Acetaminophen/ Hydrocodone Bitart ([place] (5/325)) 1 tab Q6H PRN PO .MOD PAIN 4- 6 Last administered on 09/21/18 23:33; Admin Dose 1 TAB; Start 09/14/18 at 19:30 Morphine Sulfate (morphine) 2 mg Q4H PRN IV .SEVERE PAIN 7-10 Last administered on 09/17/18 13:38; Admin Dose 2 MG; Start 09/14/18 at 19:30 Docusate Sodium (Colace) 100 mg Q12H PRN PO .CONSTIPATION Last administered on 09/21/18 08:12; Admin Dose 100 MG; Start 09/14/18 at 19:30 Zolpidem Tartrate (Ambien) 5 mg QHS PRN PO .INSOMNIA Last administered on 09/22/18 01:04; Admin Dose 5 MG; Start 09/14/18 at 19:30 Aspirin (Aspirin) 81 mg DAILY PO Last administered on 09/25/18 08:23; Admin Dose 81 MG; Start 09/15/18 at 09:00 Budesonide (Pulmicort (Neb)) 0.5 mg BID RESP THERAPY HHN Last administered on 09/25/18 10:39; Admin Dose 0.5 MG; Start 09/15/18 at 09:00 Albuterol/ Ipratropium (Duoneb) 3 ml Q2H RESP THERAPY PRN HHN shortness of breath Last administered on 09/16/18 11:25; Admin Dose 3 ML; Start 09/15/18 at 00:00 Albuterol/ Ipratropium (Duoneb) 3 ml Q6H RESP THERAPY HHN Last administered on 09/25/18 08:00; Admin Dose 3 ML; Start 09/15/18 at 02:00 Nitroglycerin (Nitroglycerin (Sl Tab) 0.4 Mg) 1 tab Q5M PRN SL ANGINA; Start 09/15/18 at 00:00 Piperacillin Sod/ Tazobactam Sod 50 ml @ 100 mls/hr Q6 IVPB Last administered on 09/25/18 11:31; Admin Dose 100 MLS/HR; Start 09/15/18 at 00:16 Atorvastatin Calcium (Lipitor) 80 mg HS PO Last administered on 09/24/18 20:26; Admin Dose 80 MG; Start 09/15/18 at 21:00 Miscellaneous Information 1 ea NOTE XX ; Start 09/16/18 at 12:00 Glucose (Glutose) 15 gm Q15M PRN PO DECREASED GLUCOSE; Start 09/16/18 at 12:00 Glucose (Glutose) 22.5 gm Q15M PRN PO DECREASED GLUCOSE; Start 09/16/18 at 12:00 Dextrose (D50w Syringe) 25 ml Q15M PRN IV DECREASED GLUCOSE; Start 09/16/18 at 12:00 Dextrose (D50w Syringe) 50 ml Q15M PRN IV DECREASED GLUCOSE; Start 09/16/18 at 12:00 Glucagon (Glucagen) 1 mg Q15M PRN IM DECREASED GLUCOSE; Start 09/16/18 at 12:00 Glucose (Glutose) 15 gm Q15M PRN BUCCAL DECREASED GLUCOSE; Start 09/16/18 at 12:00 Lisinopril (Zestril) 5 mg BID PO Last administered on 09/25/18 08:23; Admin Dose 5 MG; Start 09/19/18 at 21:00 Spironolactone (Aldactone) 25 mg DAILY PO Last administered on 09/25/18 08:23; Admin Dose 25 MG; Start 09/19/18 at 17:30 Enalaprilat (Vasotec Iv) 0.625 mg Q6H PRN IV ELEVATED SYSTOLIC BP Last administered on 09/20/18 09:03; Admin Dose 0.625 MG; Start 09/20/18 at 00:00 Insulin Aspart (Novolog Insulin Pen) (Adult SC Insulin - Mild Algorithm)... AC MEALS AND BEDTIME SC Last administered on 09/25/18 11:57; Admin Dose 4 UNIT; Start 09/20/18 at 17:30 Diagnostic Test (Pha) (Accu-Chek) 1 ea 02 XX Last administered on 09/25/18 02:13; Admin Dose 1 EA; Start 09/21/18 at 02:00 Diltiazem HCl (Cardizem Iv) 10 mg Q1H PRN IV ELEVATED HEART RATE Last administered on 09/22/18 17:17; Admin Dose 10 MG; Start 09/21/18 at 02:00 Apixaban (Eliquis) 5 mg BID PO Last administered on 09/25/18 08:23; Admin Dose 5 MG; Start 09/21/18 at 21:00 Bisacodyl (Dulcolax) 10 mg DAILY PRN PO CONSTIPATION Last administered on 09/21/18 20:42; Admin Dose 10 MG; Start 09/21/18 at 16:00 Metoprolol Succinate (Toprol Xl) 25 mg BID PO Last administered on 09/25/18 08:23; Admin Dose 25 MG; Start 09/22/18 at 21:00 Amiodarone HCl (Cordarone) 200 mg BID PO Last administered on 09/25/18 09:39; Admin Dose 200 MG; Start 09/22/18 at 21:00 Alteplase, Recombinant (Cathflo (Activase)) 2 mg MAY REPEAT X1 PRN CATHETER IF CATHETER REMAINS OCCULUDED; Start 09/24/18 at 07:00 Amiodarone HCl 200 ml @ 16.667 mls/ hr Q12H IV Last administered on 09/25/18 11:33; Admin Dose 16.667 MLS/HR; Start 09/24/18 at 09:30 Furosemide (Lasix) 20 mg DAILY IV Last administered on 09/25/18 08:23; Admin Dose 20 MG; Start 09/25/18 at 09:00 Assessment/Plan Hospital Course (Demo Recall) IMPRESSION 1. Status post septic shock, likely secondary to urinary tract infection. 2. Possible community-acquired pneumonia. 3. Pulmonary edema with acute hypoxemic respiratory failure. Progressive hypoxemia secondary to pulmonary edema, slowly improving. 4. Renal insufficiency, likely acute tubular necrosis injury. 5. Non-ST elevation NH, ischemic cardia myopathy with severe aortic stenosis status post cardiac cath family declined coronary artery bypass graft surgery PLAN: 1. Cardiology recommendations 2. Aspiration precautions 3. PT eval. Rate control and once stable DC planning. Sesar eval. ALEN FLORES MD, [facility] Sep 25, 2018 12:12
--- NOTE | 2018-09-25 12:28 | PN ---
Date/Time of Note Date/Time of Note DATE: 09/25/18 TIME: 12:25 Objective Vitals Vital Signs Date Temp Pulse Resp B/P (MAP) Pulse Ox O2 O2 Flow FiO2 Time Delivery Rate 09/25/18 76 12:06 09/25/18 97.5 22 92/56 (68) 96 Room Air 11:23 09/25/18 21 10:44 09/25/18 1.0 04:32 Intake and Output 09/24/18 09/24/18 09/25/18 1515:00 23:00 07:00 IntakeIntake Total 450 ml 340 ml OutputOutput Total 1 ml 2 ml BalanceBalance 449 ml 338 ml Results Result Diagram: 09/25/18 0608 09/25/18 0608 Medications Medications Current Medications IV Flush (NS 3 ml) 3 ml PER PROTOCOL IV ; Start 09/14/18 at 19:30 Ondansetron HCl (Zofran Inj) 4 mg Q6H PRN IV NAUSEA/VOMITING; Start 09/14/18 at 19:30 Acetaminophen (Tylenol Tab) 650 mg Q6H PRN PO .PAIN 1-3 OR TEMP; Start 09/14/18 at 19:30 Acetaminophen/ Hydrocodone Bitart ([place] (5/325)) 1 tab Q6H PRN PO .MOD PAIN 4- 6 Last administered on 09/21/18 23:33; Admin Dose 1 TAB; Start 09/14/18 at 19:30 Morphine Sulfate (morphine) 2 mg Q4H PRN IV .SEVERE PAIN 7-10 Last administered on 09/17/18 13:38; Admin Dose 2 MG; Start 09/14/18 at 19:30 Docusate Sodium (Colace) 100 mg Q12H PRN PO .CONSTIPATION Last administered on 09/21/18 08:12; Admin Dose 100 MG; Start 09/14/18 at 19:30 Zolpidem Tartrate (Ambien) 5 mg QHS PRN PO .INSOMNIA Last administered on 09/22/18 01:04; Admin Dose 5 MG; Start 09/14/18 at 19:30 Aspirin (Aspirin) 81 mg DAILY PO Last administered on 09/25/18 08:23; Admin Dose 81 MG; Start 09/15/18 at 09:00 Budesonide (Pulmicort (Neb)) 0.5 mg BID RESP THERAPY HHN Last administered on 09/25/18 10:39; Admin Dose 0.5 MG; Start 09/15/18 at 09:00 Albuterol/ Ipratropium (Duoneb) 3 ml Q2H RESP THERAPY PRN HHN shortness of breath Last administered on 09/16/18 11:25; Admin Dose 3 ML; Start 09/15/18 at 00:00 Albuterol/ Ipratropium (Duoneb) 3 ml Q6H RESP THERAPY HHN Last administered on 09/25/18 08:00; Admin Dose 3 ML; Start 09/15/18 at 02:00 Nitroglycerin (Nitroglycerin (Sl Tab) 0.4 Mg) 1 tab Q5M PRN SL ANGINA; Start 09/15/18 at 00:00 Piperacillin Sod/ Tazobactam Sod 50 ml @ 100 mls/hr Q6 IVPB Last administered on 09/25/18 11:31; Admin Dose 100 MLS/HR; Start 09/15/18 at 00:16 Atorvastatin Calcium (Lipitor) 80 mg HS PO Last administered on 09/24/18 20:26; Admin Dose 80 MG; Start 09/15/18 at 21:00 Miscellaneous Information 1 ea NOTE XX ; Start 09/16/18 at 12:00 Glucose (Glutose) 15 gm Q15M PRN PO DECREASED GLUCOSE; Start 09/16/18 at 12:00 Glucose (Glutose) 22.5 gm Q15M PRN PO DECREASED GLUCOSE; Start 09/16/18 at 12:00 Dextrose (D50w Syringe) 25 ml Q15M PRN IV DECREASED GLUCOSE; Start 09/16/18 at 12:00 Dextrose (D50w Syringe) 50 ml Q15M PRN IV DECREASED GLUCOSE; Start 09/16/18 at 12:00 Glucagon (Glucagen) 1 mg Q15M PRN IM DECREASED GLUCOSE; Start 09/16/18 at 12:00 Glucose (Glutose) 15 gm Q15M PRN BUCCAL DECREASED GLUCOSE; Start 09/16/18 at 12:00 Lisinopril (Zestril) 5 mg BID PO Last administered on 09/25/18 08:23; Admin Dose 5 MG; Start 09/19/18 at 21:00 Spironolactone (Aldactone) 25 mg DAILY PO Last administered on 09/25/18 08:23; Admin Dose 25 MG; Start 09/19/18 at 17:30 Enalaprilat (Vasotec Iv) 0.625 mg Q6H PRN IV ELEVATED SYSTOLIC BP Last administered on 09/20/18 09:03; Admin Dose 0.625 MG; Start 09/20/18 at 00:00 Insulin Aspart (Novolog Insulin Pen) (Adult SC Insulin - Mild Algorithm)... AC MEALS AND BEDTIME SC Last administered on 09/25/18 11:57; Admin Dose 4 UNIT; Start 09/20/18 at 17:30 Diagnostic Test (Pha) (Accu-Chek) 1 ea 02 XX Last administered on 09/25/18 02:13; Admin Dose 1 EA; Start 09/21/18 at 02:00 Diltiazem HCl (Cardizem Iv) 10 mg Q1H PRN IV ELEVATED HEART RATE Last administered on 09/22/18 17:17; Admin Dose 10 MG; Start 09/21/18 at 02:00 Apixaban (Eliquis) 5 mg BID PO Last administered on 09/25/18 08:23; Admin Dose 5 MG; Start 09/21/18 at 21:00 Bisacodyl (Dulcolax) 10 mg DAILY PRN PO CONSTIPATION Last administered on 09/21/18 20:42; Admin Dose 10 MG; Start 09/21/18 at 16:00 Metoprolol Succinate (Toprol Xl) 25 mg BID PO Last administered on 09/25/18 08:23; Admin Dose 25 MG; Start 09/22/18 at 21:00 Amiodarone HCl (Cordarone) 200 mg BID PO Last administered on 09/25/18 09:39; Admin Dose 200 MG; Start 09/22/18 at 21:00 Alteplase, Recombinant (Cathflo (Activase)) 2 mg MAY REPEAT X1 PRN CATHETER IF CATHETER REMAINS OCCULUDED; Start 09/24/18 at 07:00 Amiodarone HCl 200 ml @ 16.667 mls/ hr Q12H IV Last administered on 09/25/18 11:33; Admin Dose 16.667 MLS/HR; Start 09/24/18 at 09:30 Furosemide (Lasix) 20 mg DAILY IV Last administered on 09/25/18at 08:23; Admin Dose 20 MG; Start 09/25/18 at 09:00 VTE Prophylaxis Risk score (from Ns)>0 risk: 8 SCD applied (from Ns): Yes Lines/Catheters IV Catheter Type: Rebollar in Place: No Assessment/Plan Hospital Course Subjective -no acute complaints, however still in afib Objective Physical exam General: Patient is laying in bed and answers questions appropriately Mentation: Patient is alert and oriented somewhat, but baseline Head: Normocephalic atraumatic Eyes: EOMI, pupils reactive to light Neck: Supple, nontender, midline Respiratory: Clear to auscultation bilaterally Cardiovascular: regular rate, no obvious murmurs Gastrointestinal: non-tender to palpation, bowel sounds heard. Neurological: Moves all extremities spontaneously Skin: No new skin lesions Assessment/Plan 1. Acute hypoxic respiratory failure- improving - Patient weaned off high flow and tolerating NC well. Saturations >90% on 2L - Pulm on board and appreciate recommendations - Cardiology on board and continuing aggressive diuresis 2. A. fib with RVR - patient back in afib recently and Cardiology aware - cardiology to attempt new changes, drip for 24 more hours. 3. Sepsis secondary to UTI and/or pneumonia- stable - Continue IV antibiotics and final cultures noted - TEOFILO Llanos, finished 7 day course. Remains afebrile and WBC nl 4. NSTEMI - s/p LHC on 09/16 that showed triple vessel disease - CT surgery input appreciated and not recommending surgical intervention due to high risk. Family also opting not to proceed with surgical intervention - will continue aggressive medical management per Cardiology recommendations 5. Diabetes - A1c noted - ISS and accuchecks 6. HTN - BP stable 7. Normocytic anemia likely secondary chronic disease - Monitor - no need for transfusion at this time 8. Disposition - Patient Will need HR better controlled prior to d/c -Discussed with family, will attempt for ALEX Azar Sep 25, 2018 12:28
[2018-09-25] MEDS: ATORVASTATIN 80 MG TAB PO SCH (20:24)
[2018-09-25] MEDS: ZOLPIDEM 5 MG TAB PO PRN (22:39)
[2018-09-25] MEDS: DIGOXIN 500 MCG INJ IV SCH (22:39)
[2018-09-26] VITALS (10 sets, daily range): BP systolic 102–151; BP diastolic 53–76; PULSE 54–104; RESP 17–22
[2018-09-26] MEDS ORDERED: DIGOXIN 500 MCG INJ IV SCH (01:00)
[2018-09-26] MEDS: ALBUTEROL/IPRATROPIUM (NEB) 3 ML AMP HHN SCH ×4 (01:59→19:33)
[2018-09-26] MEDS: ACCUCHECK AT 2AM (Patients on SS coverage) XX SCH (02:00)
[2018-09-26] MEDS: DIGOXIN 500 MCG INJ IV SCH (02:06)
[2018-09-26] MEDS: HYDROCODONE/APAP (5/325) TAB PO PRN (03:02)
[2018-09-26] MEDS: Insulin NOVOLOG SS MILD Algorithm (SS with meals and bedtime) SC SCH ×3 (07:00→17:30)
[2018-09-26] MEDS: BUDESONIDE (NEB) 0.5MG/2ML AMP HHN SCH ×2 (08:42→19:34)
[2018-09-26] MEDS ORDERED: METOPROLOL (XL) 25 MG TAB PO SCH (09:00)
--- NOTE | 2018-09-26 10:34 | DS ---
Date/Time of Note Date/Time of Note DATE: 09/26/18 TIME: 10:34 Discharge Summary Admission/Discharge Info Admit Date/Time Sep 14, 2018 at 17:13 Discharge Date/Time Patient Condition: Stable Hospital Course Patient is a female with a past medical history significant for hypertension and diabetes mellitus who originally presented to [facility] for acute hypoxic respiratory failure and chest pain. Patient was diagnosed with A. fib with RVR, pneumonia and non-ST elevated ME on admission. Patient had a long stay in the ICU which resulted in a cardiac catheter and showed triple-vessel disease. Cardiothoracic surgery had a long discussion with the patient's family and the cardiac thoracic surgeon as well as family both decided not to proceed with surgical intervention as she is extremely high risk. Patient is currently DO NOT RESUSCITATE however not hospice at this time. Currently patient still has multiple issues including her A. fib, as well as heart failure. There needs to be daily adjustments to her A. fib and hypertension medications as she does have some issues with going back into rapid ventricular rate and I suggest highly that cardiology follow her at [facility]. Another note is that due to likely over diuresis, patient's creatinine has been creeping up very slowly, I also recommend that nephrology continue to follow patient and adjust medications as needed. As of today per nephrology suggested to stop Lasix for now to continue Aldactone. I highly recommend nephrology follow-up as well as pulmonology and cardiology. Patient will be discharged to [facility] for continued care Discharge diagnosis Acute hypoxic respiratory failure improving A. fib with RVR, and chronic A. fib UTI and pneumonia, antibiotics finished Non-ST elevated ME, Coronary artery disease, triple-vessel disease, not a surgical candidate Diabetes mellitus Hypertension Anemia Home Meds Reported Medications Valsartan* (Diovan*) 80 Mg Tablet, 80 MG PO DAILY, TAB 09/23/18 Simvastatin (Simvastatin) 20 Mg Tablet, 20 MG PO DAILY, #30 TAB 09/23/18 Rosiglitazone Maleate* (Avandia*) 4 Mg Tablet, 8 MG PO DAILY, TAB 09/23/18 Nifedipine* (Nifedipine ER*) 30 Mg Tablet.sa, 30 MG PO DAILY, TAB.SA 09/23/18 Nifedipine* (Nifedipine ER*) 60 Mg Tablet.sa, 60 MG PO DAILY, TAB.SA 09/23/18 Metformin Hcl* (Metformin Hcl*) 1,000 Mg Tablet, 1000 MG PO WITH BREAKFAST, #30 TAB 09/23/18 Folic Acid* (Folic Acid*) 1 Mg Tablet, 1 MG PO DAILY, TAB 09/23/18 Diclofenac Sodium* (Diclofenac Sodium*) 25 Mg Tablet.dr, 25 MG PO DAILY, #60 TAB 09/23/18 Cyclobenzaprine Hcl* (Cyclobenzaprine Hcl*) 10 Mg Tablet, 10 MG PO TID, #90 TAB 09/23/18 Carvedilol* (Coreg*) 25 Mg Tablet, 25 MG PO BID, #60 TAB 09/23/18 Aspirin* (Aspirin* EC) 81 Mg Tablet.dr, 81 MG PO DAILY, TAB 09/23/18 Discontinued Reported Medications Spironolactone* (Aldactone*) 25 Mg Tablet, 12.5 MG PO DAILY, #60 TAB 09/22/18 Sacubitril/Valsartan (Entresto 49 mg-51 mg Tablet) 1 Each Tablet, 1 EACH PO BID, TAB 09/22/18 Omeprazole* (Omeprazole*) 20 Mg Capsule.dr, 20 MG PO DAILY, #30 CAP 09/22/18 Levothyroxine Sodium* (Synthroid*) 100 Mcg Tablet, 100 MCG PO BEFORE BREAKFAST, #30 TAB 09/22/18 Furosemide* (Lasix*) 40 Mg Tablet, 40 MG PO 4X A WEEK, TAB 09/22/18 Ferrous Sulfate (Ferrous Sulfate) 325 Mg Tablet.dr, 325 MG PO BID 09/22/18 Carvedilol* (Coreg*) 6.25 Mg Tablet, 6.25 MG PO BID, #60 TAB 09/22/18 Atorvastatin Calcium (Atorvastatin Calcium) 10 Mg Tablet, 10 MG PO QHS, #30 TAB 09/22/18 Apixaban* (Eliquis*) 2.5 Mg Tablet, 2.5 MG PO BID, TAB 09/22/18 Rosiglitazone Maleate* (Avandia*) 8 Mg Tablet 10/25/10 Cyclobenzaprine Hcl* (Cyclobenzaprine Hcl*) 10 Mg Tablet 10/25/10 Diclofenac Sodium* (Voltaren*) 25 Mg Tablet. 10/25/10 Carvedilol* (Carvedilol*) 25 Mg Tablet 10/25/10 Valsartan* (Diovan*) 80 Mg Tablet 10/25/10 Simvastatin* (Zocor*) 20 Mg Tablet 10/25/10 Folic Acid* (Folic Acid*) 1 Mg Tablet 10/25/10 Metformin Hcl* (Metformin Hcl*) 1,000 Mg Tablet 10/25/10 Nifedipine (Nifedipine XL) 30 Mg/Bottle Tab.osm.24 10/25/10 Aspirin (Aspirin) 81 Mg Tablet 10/25/10 Nifedipine* (Nifedipine ER*) 60 Mg Tablet.sa 10/25/10 Primary Care Provider Not On Staff Doctor Pending Labs Laboratory Tests Test 09/25/18 11:26 09/25/18 17:11 09/25/18 19:45 09/26/18 05:40 Bedside 283 173 161 Glucose mg/dL (70-220) mg/dL (70-220) mg/dL (70-220) Sodium Level 139 mmol/L (135-14 4) Potassium 4.3 Level mmol/L (3.5-5. 1) Chloride Level 99 mmol/L (97-110 ) Carbon Dioxide 28 Level mmol/L (21-31) Anion Gap 12 (5-13) Blood Urea 38 Nitrogen mg/dl (7-20) Creatinine 1.90 mg/dl (0.44-1. 00) Est Glomerular mL/min (>60) Filtrat Rate mL/min Glucose Level 162 mg/dl (70-220) Calcium Level 9.6 mg/dl (8.4-10. 2) Magnesium 1.8 Level mg/dl (1.7-2.5 ) Total 0.2 Bilirubin mg/dl (0.2-1.3 ) Direct 0.00 Bilirubin mg/dl (0.00-0. 20) Indirect 0.2 Bilirubin mg/dl (0-1.1) Aspartate Amino 28 Transf (AST/SGO IU/L (15-46) T) Alanine 98 Aminotransferas IU/L (13-69) e (ALT/SGPT) Alkaline 98 Phosphatase IU/L (42-121) B-Type 35418 Natriuretic PG/ML (0-450) Peptide Total Protein 7.5 g/dl (6.1-8.1) Albumin 3.3 g/dl (3.3-4.9) Globulin 4.20 g/dl (1.3-3.2) Albumin/Globuli 0.78 n Ratio Digoxin Level 3.5 ng/ml (1.0-2.0 ) Test 09/26/18 09:13 Bedside 177 Glucose mg/dL (70-220) ALEX HYLTON Sep 26, 2018 10:34
[2018-09-26] MEDS ORDERED: ATOR-2 PO (10:36)
[2018-09-26] MEDS ORDERED: SPIR25TA PO (10:36)
[2018-09-26] MEDS ORDERED: AMIO200T4 PO (10:36)
[2018-09-26] MEDS ORDERED: NOVO3I SC (10:36)
[2018-09-26] MEDS ORDERED: APIX5TAB PO (10:36)
[2018-09-26] MEDS ORDERED: METO-335 PO (10:36)
[2018-09-26] MEDS: ASPIRIN 81 MG TAB PO SCH (10:48)
[2018-09-26] MEDS: APIXABAN 5 MG TABLET PO SCH (10:48)
[2018-09-26] MEDS: SPIRONOLACTONE 25 MG TAB PO SCH (10:48)
[2018-09-26] MEDS: AMIODARONE 200 MG TAB PO SCH (10:49)
--- NOTE | 2018-09-26 11:47 | CONS ---
Assessment/Plan Assessment/Plan Assessment/Plan (Daily) 1. acute Renal failure 2/2 Hemodynamics from CHF 2. acute CHF, possibly systolic with low EF 3. atrial fibrillation with RVR 5. septich shock possibly due to UTI 6. UTI with Urine cx growing Group B streptoccoci 7. Acute NSTEMI s/p LHC on 09/15/18 that showed multivessel obstructive CAD 8. h/o HTN 9. H/o DM II 10. H/o HL 11. metabolic acidosis due to Septic shock + renal failure 12. atrial fibrillation with RVR Plan: BUN/Cr 38/1.9, K normal today pt started on amiodarone gtt for rate control, Eliquis for anticoagulation S/p LHC that showed multivessel obstructive CAD- s/p CT surgery evaluation, too high risk for surgery , family wants to wait, medical management for now lisinopril 5 gm BID, aldactone 25 mg po daily, MTP 25 mg BID, BP stable with current regimen IV abx zosyn for sepsis, renally dose all abx and monitor electrolytes possible transfer [facility] up Consultation Date/Type/Reason Admit Date/Time Sep 14, 2018 at 17:13 Initial Consult Date 09/15/18 Type of Consult NEPHROLOGY Requesting Provider: HAYLEY ARREDONDO Date/Time of Note DATE: 09/26/18 TIME: 11:47 Exam/Review of Systems Exam Vitals Vital Signs Date Temp Pulse Resp B/P (MAP) Pulse Ox O2 O2 Flow FiO2 Time Delivery Rate 09/26/18 80 18 96 24 08:34 09/26/18 1.0 08:34 09/26/18 97.8 120/53 Nasal 07:29 (75) Cannula Intake and Output 09/25/18 09/25/18 09/26/18 1414:59 22:59 06:59 IntakeIntake Total 680 ml 250 ml OutputOutput Total 350 ml BalanceBalance 680 ml -100 ml Results Result Diagram: 09/25/18 0608 09/26/18 0540 Results 24hrs Laboratory Tests Test 09/25/18 17:11 09/25/18 19:45 09/26/18 05:40 09/26/18 09:13 Bedside Glucose 173 161 177 Sodium Level 139 Potassium Level 4.3 Chloride Level 99 Carbon Dioxide Level 28 Anion Gap 12 Blood Urea Nitrogen 38 H Creatinine 1.90 H Est Glomerular Filtrat Rate mL/min Glucose Level 162 Calcium Level 9.6 Magnesium Level 1.8 Total Bilirubin 0.2 Direct Bilirubin 0.00 Indirect Bilirubin 0.2 Aspartate Amino 28 Transf (AST/SGOT) Alanine 98 H Aminotransferase (ALT/ SGPT) Alkaline Phosphatase 98 B-Type Natriuretic 31078 H Peptide Total Protein 7.5 Albumin 3.3 Globulin 4.20 H Albumin/Globulin Ratio 0.78 Digoxin Level 3.5 #*H Medications Medication Current Medications IV Flush (NS 3 ml) 3 ml PER PROTOCOL IV ; Start 09/14/18 at 19:30 Ondansetron HCl (Zofran Inj) 4 mg Q6H PRN IV NAUSEA/VOMITING; Start 09/14/18 at 19:30 Acetaminophen (Tylenol Tab) 650 mg Q6H PRN PO .PAIN 1-3 OR TEMP; Start 09/14/18 at 19:30 Acetaminophen/ Hydrocodone Bitart ([place] (5/325)) 1 tab Q6H PRN PO .MOD PAIN 4- 6 Last administered on 09/26/18 03:02; Admin Dose 1 TAB; Start 09/14/18 at 19:30 Morphine Sulfate (morphine) 2 mg Q4H PRN IV .SEVERE PAIN 7-10 Last administered on 09/17/18 13:38; Admin Dose 2 MG; Start 09/14/18 at 19:30 Docusate Sodium (Colace) 100 mg Q12H PRN PO .CONSTIPATION Last administered on 09/21/18 08:12; Admin Dose 100 MG; Start 09/14/18 at 19:30 Zolpidem Tartrate (Ambien) 5 mg QHS PRN PO .INSOMNIA Last administered on 09/25/18 22:39; Admin Dose 5 MG; Start 09/14/18 at 19:30 Aspirin (Aspirin) 81 mg DAILY PO Last administered on 09/26/18 10:48; Admin Dose 81 MG; Start 09/15/18 at 09:00 Budesonide (Pulmicort (Neb)) 0.5 mg BID RESP THERAPY HHN Last administered on 09/26/18 08:42; Admin Dose 0.5 MG; Start 09/15/18 at 09:00 Albuterol/ Ipratropium (Duoneb) 3 ml Q2H RESP THERAPY PRN HHN shortness of breath Last administered on 09/16/18 11:25; Admin Dose 3 ML; Start 09/15/18 at 00:00 Albuterol/ Ipratropium (Duoneb) 3 ml Q6H RESP THERAPY HHN Last administered on 09/26/18 08:33; Admin Dose 3 ML; Start 09/15/18 at 02:00 Nitroglycerin (Nitroglycerin (Sl Tab) 0.4 Mg) 1 tab Q5M PRN SL ANGINA; Start 09/15/18 at 00:00 Atorvastatin Calcium (Lipitor) 80 mg HS PO Last administered on 09/25/18 20:24; Admin Dose 80 MG; Start 09/15/18 at 21:00 Miscellaneous Information 1 ea NOTE XX ; Start 09/16/18 at 12:00 Glucose (Glutose) 15 gm Q15M PRN PO DECREASED GLUCOSE; Start 09/16/18 at 12:00 Glucose (Glutose) 22.5 gm Q15M PRN PO DECREASED GLUCOSE; Start 09/16/18 at 12:00 Dextrose (D50w Syringe) 25 ml Q15M PRN IV DECREASED GLUCOSE; Start 09/16/18 at 12:00 Dextrose (D50w Syringe) 50 ml Q15M PRN IV DECREASED GLUCOSE; Start 09/16/18 at 12:00 Glucagon (Glucagen) 1 mg Q15M PRN IM DECREASED GLUCOSE; Start 09/16/18 at 12:00 Glucose (Glutose) 15 gm Q15M PRN BUCCAL DECREASED GLUCOSE; Start 09/16/18 at 12:00 Spironolactone (Aldactone) 25 mg DAILY PO Last administered on 09/26/18at 10:48; Admin Dose 25 MG; Start 09/19/18 at 17:30 Insulin Aspart (Novolog Insulin Pen) (Adult SC Insulin - Mild Algorithm)... AC MEALS AND BEDTIME SC Last administered on 09/25/18 17:24; Admin Dose 1 UNIT; Start 09/20/18 at 17:30 Diagnostic Test (Pha) (Accu-Chek) 1 ea 02 XX Last administered on 09/25/18 02 :13; Admin Dose 1 EA; Start 09/21/18 at 02:00 Diltiazem HCl (Cardizem Iv) 10 mg Q1H PRN IV ELEVATED HEART RATE Last administered on 09/22/18 17:17; Admin Dose 10 MG; Start 09/21/18 at 02:00 Apixaban (Eliquis) 5 mg BID PO Last administered on 09/26/18at 10:48; Admin Dose 5 MG; Start 09/21/18 at 21:00 Bisacodyl (Dulcolax) 10 mg DAILY PRN PO CONSTIPATION Last administered on 09/21/18at 20:42; Admin Dose 10 MG; Start 09/21/18 at 16:00 Amiodarone HCl (Cordarone) 200 mg BID PO Last administered on 09/26/18at 10:49; Admin Dose 200 MG; Start 09/22/18 at 21:00 Alteplase, Recombinant (Cathflo (Activase)) 2 mg MAY REPEAT X1 PRN CATHETER IF CATHETER REMAINS OCCULUDED; Start 09/24/18 at 07:00 Metoprolol Succinate (Toprol Xl) 50 mg BID PO Last administered on 09/26/18at 10:49; Admin Dose 50 MG; Start 09/26/18 at 09:00 BEKA HARPER MD Sep 26, 2018 11:47
[2018-09-26] MEDS ORDERED: ALBUMIN HUMAN 25% 100 ML IV ONE (12:00)
--- NOTE | 2018-09-26 13:53 | RADRPT ---
Vent Rate: 67 bpm RR Interval: 0 msec [place] Interval: 0 msec QRS Duration: 110 msec QT Interval: 436 msec QTC Interval: 460 msec P-R-T [place]: 0 - 0 - 19 degrees Atrial fibrillation Abnormal ECG Electronically Signed By: Srikanth Mccullough
--- NOTE | 2018-09-26 13:53 | RADRPT ---
Vent Rate: 68 bpm RR Interval: 0 msec [place] Interval: 0 msec QRS Duration: 110 msec QT Interval: 444 msec QTC Interval: 472 msec P-R-T [place]: 0 - 2 - 16 degrees Atrial fibrillation Incomplete LBBB Low voltage QRS Abnormal ECG Electronically Signed By: Srikanth Mccullough
--- NOTE | 2018-09-26 13:54 | RADRPT ---
Vent Rate: 126 bpm RR Interval: 0 msec [place] Interval: 0 msec QRS Duration: 110 msec QT Interval: 332 msec QTC Interval: 480 msec P-R-T [place]: 0 - 11 - 0 degrees Atrial fibrillation with rapid ventricular response Inferior infarct , age undetermined Cannot rule out Anterior infarct , age undetermined Incomplete LBBB Marked ST abnormality, possible lateral subendocardial injury Abnormal ECG Electronically Signed By: Srikanth Mccullough
--- NOTE | 2018-09-26 15:01 | CONS ---
Consult Date/Type/Reason Admit Date/Time Sep 14, 2018 at 17:13 Initial Consult Date 09/15/18 Type of Consultation: cv Requesting Provider: HAYLEY ARREDONDO Date/Time of Note DATE: 09/26/18 TIME: 14:56 Subjective Interventional cardiology follow-up progress note Subjective: Case discussed with staff.DR HYLTON AND SON Telemetry was reviewed. pt is in atrial fibrillation with controlled HR No bleeding is reported no report of chest pain or pressure pt with less hypoxemia. off BIPAP but still c/o sob. Breathing appears to be improving Patient was able to walk today per her son's report Objective: General: Elderly female. Appears older than stated age with respiratory distress on BiPAP now HEENT: NC/AT. pupils are equal. round. NECK: NO JVD. no stridor. CV: Irregularly irregular . systolic murmur; no gallop or rubs. PULM: no wheezing . Less rhonchi. GI: SOFT, NT, ND, no rebound or guarding Extremity: trace B/L LE edema. no clubbing. neuro: Comfortably sleeping Psych: calm and pleasant rectal: deferred X-ray done 09/14/2018 shows:Cardiomegaly, with increased mild failure. CXR 09/16: Cardiomegaly with mild pulmonary edema and small pleural effusions.Calcified atherosclerosis of the thoracic aorta. Chest x-ray done 09/17/2018 shows: Stable cardiomegaly and vascular congestion with persistent left pleural effusion. Superimposed infection cannot be excluded. . EKG was personally reviewed which shows: Atrial fibrillation/junctional rhythm with left bundle branch block Echocardiogram was personally reviewed shows: Moderate left ventricular systolic dysfunction. Ejection fraction is visually estimated at 30-35 %. Tissue Doppler/Mitral Doppler indices are consistent with restrictive physiology with markedly elevated left atrial pressure (Stage III-IV diastolic dysfunction). Multiple segmental wall motion abnormalities. There is moderate enlargement of left atrium. There is mild enlargement of right atrium. Moderate mitral leaflet calcification. Moderate mitral annular calcification. Moderate to severe mitral valve regurgitation. Aortic valve not well visualized. Moderate to severe aortic stenosis however due to low cardiac output severity of aortic stenosis is underestimated. Aortic valve area 0.90 cm2. Mild to moderate aortic valve regurgitation. Normal appearance of the tricuspid valve. There is moderate tricuspid regurgitation. Dilated inferior vena cava with poor inspiratory collapse consistent with elevated right atrial pressures. Objective Vitals Vital Signs Date Temp Pulse Resp B/P (MAP) Pulse Ox O2 O2 Flow FiO2 Time Delivery Rate 09/26/18 71 18 94 Nasal 1.0 14:31 Cannula 09/26/18 97.7 151/71 12:06 (97) 09/26/18 24 08:34 Intake and Output 09/25/18 09/25/18 09/26/18 1414:59 22:59 06:59 IntakeIntake Total 680 ml 250 ml OutputOutput Total 350 ml BalanceBalance 680 ml -100 ml Results/Medications Result Diagram: 09/25/18 0608 09/26/18 0540 Results 24 hrs Laboratory Tests Test 09/25/18 17:11 09/25/18 19:45 09/26/18 05:40 09/26/18 09:13 Bedside Glucose 173 161 177 Sodium Level 139 Potassium Level 4.3 Chloride Level 99 Carbon Dioxide Level 28 Anion Gap 12 Blood Urea Nitrogen 38 H Creatinine 1.90 H Est Glomerular Filtrat Rate mL/min Glucose Level 162 Calcium Level 9.6 Magnesium Level 1.8 Total Bilirubin 0.2 Direct Bilirubin 0.00 Indirect Bilirubin 0.2 Aspartate Amino 28 Transf (AST/SGOT) Alanine 98 H Aminotransferase (ALT/ SGPT) Alkaline Phosphatase 98 B-Type Natriuretic 20308 H Peptide Total Protein 7.5 Albumin 3.3 Globulin 4.20 H Albumin/Globulin Ratio 0.78 Digoxin Level 3.5 #*H Test 09/26/18 13:41 Bedside Glucose 176 Home Meds Active Scripts Insulin Aspart* (Novolog Insulin Pen*) 100 Unit/Ml Soln, 0 UNIT SC AC MEALS AND BEDTIME for 30 Days Prov:ALEX HYLTON 09/26/18 Spironolactone* (Aldactone*) 25 Mg Tablet, 25 MG PO DAILY for 30 Days, TAB Prov:ALEX HYLTON 09/26/18 Metoprolol Succinate* (Toprol XL*) 25 Mg Tab.sr.24h, 50 MG PO BID for 30 Days Prov:ALEX HYLTON 09/26/18 Atorvastatin* (Atorvastatin*) 80 Mg Tablet, 80 MG PO HS for 30 Days, TAB Prov:ALEX HYLTON 09/26/18 Amiodarone Hcl* (Amiodarone Hcl*) 200 Mg Tablet, 200 MG PO BID for 30 Days, TAB Prov:ALEX HYLTON 09/26/18 Apixaban* (Eliquis*) 5 Mg Tablet, 5 MG PO BID for 30 Days, TAB Prov:ALEX HYLTON 09/26/18 Reported Medications Folic Acid* (Folic Acid*) 1 Mg Tablet, 1 MG PO DAILY, TAB 09/23/18 Aspirin* (Aspirin* EC) 81 Mg Tablet.dr, 81 MG PO DAILY, TAB 09/23/18 Discontinued Reported Medications Valsartan* (Diovan*) 80 Mg Tablet, 80 MG PO DAILY, TAB 09/23/18 Simvastatin (Simvastatin) 20 Mg Tablet, 20 MG PO DAILY, #30 TAB 09/23/18 Rosiglitazone Maleate* (Avandia*) 4 Mg Tablet, 8 MG PO DAILY, TAB 09/23/18 Nifedipine* (Nifedipine ER*) 30 Mg Tablet.sa, 30 MG PO DAILY, TAB.SA 09/23/18 Nifedipine* (Nifedipine ER*) 60 Mg Tablet.sa, 60 MG PO DAILY, TAB.SA 09/23/18 Metformin Hcl* (Metformin Hcl*) 1,000 Mg Tablet, 1000 MG PO WITH BREAKFAST, #30 TAB 09/23/18 Diclofenac Sodium* (Diclofenac Sodium*) 25 Mg Tablet.dr, 25 MG PO DAILY, #60 TAB 09/23/18 Cyclobenzaprine Hcl* (Cyclobenzaprine Hcl*) 10 Mg Tablet, 10 MG PO TID, #90 TAB 09/23/18 Carvedilol* (Coreg*) 25 Mg Tablet, 25 MG PO BID, #60 TAB 09/23/18 Spironolactone* (Aldactone*) 25 Mg Tablet, 12.5 MG PO DAILY, #60 TAB 09/22/18 Sacubitril/Valsartan (Entresto 49 mg-51 mg Tablet) 1 Each Tablet, 1 EACH PO BID, TAB 09/22/18 Omeprazole* (Omeprazole*) 20 Mg Capsule.dr, 20 MG PO DAILY, #30 CAP 09/22/18 Levothyroxine Sodium* (Synthroid*) 100 Mcg Tablet, 100 MCG PO BEFORE BREAKFAST, #30 TAB 09/22/18 Furosemide* (Lasix*) 40 Mg Tablet, 40 MG PO 4X A WEEK, TAB 09/22/18 Ferrous Sulfate (Ferrous Sulfate) 325 Mg Tablet.dr, 325 MG PO BID 09/22/18 Carvedilol* (Coreg*) 6.25 Mg Tablet, 6.25 MG PO BID, #60 TAB 09/22/18 Atorvastatin Calcium (Atorvastatin Calcium) 10 Mg Tablet, 10 MG PO QHS, #30 TAB 09/22/18 Apixaban* (Eliquis*) 2.5 Mg Tablet, 2.5 MG PO BID, TAB 09/22/18 Rosiglitazone Maleate* (Avandia*) 8 Mg Tablet 10/25/10 Cyclobenzaprine Hcl* (Cyclobenzaprine Hcl*) 10 Mg Tablet 10/25/10 Diclofenac Sodium* (Voltaren*) 25 Mg Tablet. 10/25/10 Carvedilol* (Carvedilol*) 25 Mg Tablet 10/25/10 Valsartan* (Diovan*) 80 Mg Tablet 10/25/10 Simvastatin* (Zocor*) 20 Mg Tablet 10/25/10 Folic Acid* (Folic Acid*) 1 Mg Tablet 10/25/10 Metformin Hcl* (Metformin Hcl*) 1,000 Mg Tablet 10/25/10 Nifedipine (Nifedipine XL) 30 Mg/Bottle Tab.osm.24 10/25/10 Aspirin (Aspirin) 81 Mg Tablet 10/25/10 Nifedipine* (Nifedipine ER*) 60 Mg Tablet.sa 10/25/10 Medications Current Medications IV Flush (NS 3 ml) 3 ml PER PROTOCOL IV ; Start 09/14/18 at 19:30 Ondansetron HCl (Zofran Inj) 4 mg Q6H PRN IV NAUSEA/VOMITING; Start 09/14/18 at 19:30 Acetaminophen (Tylenol Tab) 650 mg Q6H PRN PO .PAIN 1-3 OR TEMP; Start 09/14/18 at 19:30 Acetaminophen/ Hydrocodone Bitart ([place] (5/325)) 1 tab Q6H PRN PO .MOD PAIN 4- 6 Last administered on 09/26/18at 03:02; Admin Dose 1 TAB; Start 09/14/18 at 19:30 Morphine Sulfate (morphine) 2 mg Q4H PRN IV .SEVERE PAIN 7-10 Last administered on 09/17/18at 13:38; Admin Dose 2 MG; Start 09/14/18 at 19:30 Docusate Sodium (Colace) 100 mg Q12H PRN PO .CONSTIPATION Last administered on 09/21/18at 08:12; Admin Dose 100 MG; Start 09/14/18 at 19:30 Zolpidem Tartrate (Ambien) 5 mg QHS PRN PO .INSOMNIA Last administered on 09/25/18 22:39; Admin Dose 5 MG; Start 09/14/18 at 19:30 Aspirin (Aspirin) 81 mg DAILY PO Last administered on 09/26/18 10:48; Admin Dose 81 MG; Start 09/15/18 at 09:00 Budesonide (Pulmicort (Neb)) 0.5 mg BID RESP THERAPY HHN Last administered on 09/26/18 08:42; Admin Dose 0.5 MG; Start 09/15/18 at 09:00 Albuterol/ Ipratropium (Duoneb) 3 ml Q2H RESP THERAPY PRN HHN shortness of breath Last administered on 09/16/18 11:25; Admin Dose 3 ML; Start 09/15/18 at 00:00 Albuterol/ Ipratropium (Duoneb) 3 ml Q6H RESP THERAPY HHN Last administered on 09/26/18 14:28; Admin Dose 3 ML; Start 09/15/18 at 02:00 Nitroglycerin (Nitroglycerin (Sl Tab) 0.4 Mg) 1 tab Q5M PRN SL ANGINA; Start 09/15/18 at 00:00 Atorvastatin Calcium (Lipitor) 80 mg HS PO Last administered on 09/25/18 20:24; Admin Dose 80 MG; Start 09/15/18 at 21:00 Miscellaneous Information 1 ea NOTE XX ; Start 09/16/18 at 12:00 Glucose (Glutose) 15 gm Q15M PRN PO DECREASED GLUCOSE; Start 09/16/18 at 12:00 Glucose (Glutose) 22.5 gm Q15M PRN PO DECREASED GLUCOSE; Start 09/16/18 at 12:00 Dextrose (D50w Syringe) 25 ml Q15M PRN IV DECREASED GLUCOSE; Start 09/16/18 at 12:00 Dextrose (D50w Syringe) 50 ml Q15M PRN IV DECREASED GLUCOSE; Start 09/16/18 at 12:00 Glucagon (Glucagen) 1 mg Q15M PRN IM DECREASED GLUCOSE; Start 09/16/18 at 12:00 Glucose (Glutose) 15 gm Q15M PRN BUCCAL DECREASED GLUCOSE; Start 09/16/18 at 12:00 Spironolactone (Aldactone) 25 mg DAILY PO Last administered on 09/26/18at 10:48; Admin Dose 25 MG; Start 09/19/18 at 17:30 Insulin Aspart (Novolog Insulin Pen) (Adult SC Insulin - Mild Algorithm)... AC MEALS AND BEDTIME SC Last administered on 09/26/18 13:45; Admin Dose 1 UNIT; Start 09/20/18 at 17:30 Diagnostic Test (Pha) (Accu-Chek) 1 ea 02 XX Last administered on 09/25/18at 02:13; Admin Dose 1 EA; Start 09/21/18 at 02:00 Diltiazem HCl (Cardizem Iv) 10 mg Q1H PRN IV ELEVATED HEART RATE Last administered on 09/22/18 17:17; Admin Dose 10 MG; Start 09/21/18 at 02:00 Apixaban (Eliquis) 5 mg BID PO Last administered on 09/26/18 10:48; Admin Dose 5 MG; Start 09/21/18 at 21:00 Bisacodyl (Dulcolax) 10 mg DAILY PRN PO CONSTIPATION Last administered on 09/21at 20:42; Admin Dose 10 MG; Start 09/21/18 at 16:00 Amiodarone HCl (Cordarone) 200 mg BID PO Last administered on 09/26/18 10:49; Admin Dose 200 MG; Start 09/22/18 at 21:00 Alteplase, Recombinant (Cathflo (Activase)) 2 mg MAY REPEAT X1 PRN CATHETER IF CATHETER REMAINS OCCULUDED; Start 09/24/18 at 07:00 Metoprolol Succinate (Toprol Xl) 50 mg BID PO Last administered on 09/26/18at 10:49; Admin Dose 50 MG; Start 09/26/18 at 09:00 Assessment/Plan Hospital Course (Demo Recall) 1. 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 Congestive heart failure appears acute secondary systolic heart failure 3. Sepsis and shock 4. Arrhythmias with proximal atrial fibrillation /junctional rhythm 5. Severe cardiomyopathy ischemic 6. DM 7. HX HTN now hypotensive and shock 8. UTI 9. ? pneumonia 10. Acute renal failure 11. Anemia 12. Valvular heart disease 13. Transaminitis/liver failure: Probably related to hepatic congestion; improved now 14. Elevated TG level. Patient with history was taken after last dose of dig was given. For now avoid giving any more digoxin will check level tomorrow Recommendations: Continue with Eliquis . check dig level in AM Antibiotic management as internal medicine. Blood cultures are negative so far Respiratory care will be continued. O2 and BiPAP as needed Diabetic control as per internal medicine. Insulin. CT surgery input is appreciated. Continue with Aldactone and off lisinopril due to renal failure Cont Toprol-XL We will stop the amiodarone drip now the patient remains in persistent atrial fibrillation Lasix is on hold due to the fact that patient is going to renal failure Awaiting transfer to [place] Thank you for his referral. LUIS A AGUILERA MD [facility] LUIS A AGUILERA MD Sep 26, 2018 15:01
--- NOTE | 2018-09-26 15:04 | CONS ---
Consult Date/Type/Reason Admit Date/Time Sep 14, 2018 at 17:13 Initial Consult Date 09/15/18 Type of Consult Pulmonary Requesting Provider: HAYLEY ARREDONDO Date/Time of Note DATE: 09/26/18 TIME: 15:03 Subjective Remains stable this morning, rate controlled afib. Objective Vital Signs Date Temp Pulse Resp B/P (MAP) Pulse Ox O2 O2 Flow FiO2 Time Delivery Rate 09/26/18 71 18 94 Nasal 1.0 14:31 Cannula 09/26/18 97.7 151/71 12:06 (97) 09/26/18 24 08:34 Intake and Output 09/25/18 09/25/18 09/26/18 1515:00 23:00 07:00 IntakeIntake Total 680 ml 250 ml OutputOutput Total 350 ml BalanceBalance 680 ml -100 ml Exam Elderly lady comfortable at rest GENERAL: VITAL SIGNS: per chart NECK: Supple. No JVD or lymphadenopathy. CARDIAC EXAM: S1, S2. No added sounds or murmurs. CHEST: Diminished bilaterally ABDOMEN: Soft, nontender. No guarding or rebound. EXTREMITIES: No cyanosis, clubbing or edema. NEUROLOGIC: Generalized weakness. No focal deficits. Vent Setting Fraction of Inspired Oxygen pe: 24 Results/Medications Result Diagram: 09/25/18 0608 09/26/18 0540 Results 24 hrs Laboratory Tests Test 09/25/18 17:11 09/25/18 19:45 09/26/18 05:40 09/26/18 09:13 Bedside Glucose 173 161 177 Sodium Level 139 Potassium Level 4.3 Chloride Level 99 Carbon Dioxide Level 28 Anion Gap 12 Blood Urea Nitrogen 38 H Creatinine 1.90 H Est Glomerular Filtrat Rate mL/min Glucose Level 162 Calcium Level 9.6 Magnesium Level 1.8 Total Bilirubin 0.2 Direct Bilirubin 0.00 Indirect Bilirubin 0.2 Aspartate Amino 28 Transf (AST/SGOT) Alanine 98 H Aminotransferase (ALT/ SGPT) Alkaline Phosphatase 98 B-Type Natriuretic 57550 H Peptide Total Protein 7.5 Albumin 3.3 Globulin 4.20 H Albumin/Globulin Ratio 0.78 Digoxin Level 3.5 #*H Test 09/26/18 13:41 Bedside Glucose 176 Medications Current Medications IV Flush (NS 3 ml) 3 ml PER PROTOCOL IV ; Start 09/14/18 at 19:30 Ondansetron HCl (Zofran Inj) 4 mg Q6H PRN IV NAUSEA/VOMITING; Start 09/14/18 at 19:30 Acetaminophen (Tylenol Tab) 650 mg Q6H PRN PO .PAIN 1-3 OR TEMP; Start 09/14/18 at 19:30 Acetaminophen/ Hydrocodone Bitart ([place] (5/325)) 1 tab Q6H PRN PO .MOD PAIN 4- 6 Last administered on 09/26/18 03:02; Admin Dose 1 TAB; Start 09/14/18 at 19:30 Morphine Sulfate (morphine) 2 mg Q4H PRN IV .SEVERE PAIN 7-10 Last administered on 09/17/18 13:38; Admin Dose 2 MG; Start 09/14/18 at 19:30 Docusate Sodium (Colace) 100 mg Q12H PRN PO .CONSTIPATION Last administered on 09/21/18 08:12; Admin Dose 100 MG; Start 09/14/18 at 19:30 Zolpidem Tartrate (Ambien) 5 mg QHS PRN PO .INSOMNIA Last administered on 09/25/18 22:39; Admin Dose 5 MG; Start 09/14/18 at 19:30 Aspirin (Aspirin) 81 mg DAILY PO Last administered on 09/26/18 10:48; Admin Dose 81 MG; Start 09/15/18 at 09:00 Budesonide (Pulmicort (Neb)) 0.5 mg BID RESP THERAPY HHN Last administered on 09/26/18 08:42; Admin Dose 0.5 MG; Start 09/15/18 at 09:00 Albuterol/ Ipratropium (Duoneb) 3 ml Q2H RESP THERAPY PRN HHN shortness of breath Last administered on 09/16/18 11:25; Admin Dose 3 ML; Start 09/15/18 at 00:00 Albuterol/ Ipratropium (Duoneb) 3 ml Q6H RESP THERAPY HHN Last administered on 09/26/18 14:28; Admin Dose 3 ML; Start 09/15/18 at 02:00 Nitroglycerin (Nitroglycerin (Sl Tab) 0.4 Mg) 1 tab Q5M PRN SL ANGINA; Start 09/15/18 at 00:00 Atorvastatin Calcium (Lipitor) 80 mg HS PO Last administered on 2/28/19at 20:24; Admin Dose 80 MG; Start 09/15/18 at 21:00 Miscellaneous Information 1 ea NOTE XX ; Start 09/16/18 at 12:00 Glucose (Glutose) 15 gm Q15M PRN PO DECREASED GLUCOSE; Start 09/16/18 at 12:00 Glucose (Glutose) 22.5 gm Q15M PRN PO DECREASED GLUCOSE; Start 09/16/18 at 12:00 Dextrose (D50w Syringe) 25 ml Q15M PRN IV DECREASED GLUCOSE; Start 09/16/18 at 12:00 Dextrose (D50w Syringe) 50 ml Q15M PRN IV DECREASED GLUCOSE; Start 09/16/18 at 12:00 Glucagon (Glucagen) 1 mg Q15M PRN IM DECREASED GLUCOSE; Start 09/16/18 at 12:00 Glucose (Glutose) 15 gm Q15M PRN BUCCAL DECREASED GLUCOSE; Start 09/16/18 at 12:00 Spironolactone (Aldactone) 25 mg DAILY PO Last administered on 09/26/18at 10:48; Admin Dose 25 MG; Start 09/19/18 at 17:30 Insulin Aspart (Novolog Insulin Pen) (Adult SC Insulin - Mild Algorithm)... AC MEALS AND BEDTIME SC Last administered on 09/26/18 13:45; Admin Dose 1 UNIT; Start 09/20/18 at 17:30 Diagnostic Test (Pha) (Accu-Chek) 1 ea 02 XX Last administered on 09/25/18at 0 2:13; Admin Dose 1 EA; Start 09/21/18 at 02:00 Diltiazem HCl (Cardizem Iv) 10 mg Q1H PRN IV ELEVATED HEART RATE Last administered on 09/22/18 17:17; Admin Dose 10 MG; Start 09/21/18 at 02:00 Apixaban (Eliquis) 5 mg BID PO Last administered on 09/26/18 10:48; Admin Dose 5 MG; Start 09/21/18 at 21:00 Bisacodyl (Dulcolax) 10 mg DAILY PRN PO CONSTIPATION Last administered on 09/21/18 20:42; Admin Dose 10 MG; Start 09/21/18 at 16:00 Amiodarone HCl (Cordarone) 200 mg BID PO Last administered on 09/26/18 10:49; Admin Dose 200 MG; Start 09/22/18 at 21:00 Alteplase, Recombinant (Cathflo (Activase)) 2 mg MAY REPEAT X1 PRN CATHETER IF CATHETER REMAINS OCCULUDED; Start 09/24/18 at 07:00 Metoprolol Succinate (Toprol Xl) 50 mg BID PO Last administered on 09/26/18at 10:49; Admin Dose 50 MG; Start 09/26/18 at 09:00 Assessment/Plan Hospital Course (Demo Recall) IMPRESSION 1. Status post septic shock, likely secondary to urinary tract infection. 2. Possible community-acquired pneumonia. 3. Pulmonary edema with acute hypoxemic respiratory failure. Progressive hypoxemia secondary to pulmonary edema, slowly improving. 4. Renal insufficiency, likely acute tubular necrosis injury. 5. Non-ST elevation MS, ischemic cardia myopathy with severe aortic stenosis status post cardiac cath family declined coronary artery bypass graft surgery PLAN: 1. Cardiology recommendations 2. Aspiration precautions 3. PT eval. transfer to [facility]. ALEN FLORES MD, [facility] Sep 26, 2018 15:04
[2018-09-27] MEDS ORDERED: FUROSEMIDE 20 MG TAB PO SCH (09:00)
== END 2018-09-26 20:26 | DRG 871 ==
LOC: E/R 15:03 → TEL 17:13 → ICU 09-15 04:36 → 6WM 09-19 17:14
PROVIDERS: ADMIT Internal Medicine; ATTEND Internal Medicine
PROC: 02HV33Z Insertion of Infusion Device into Superior Vena Cava, Percutaneous Approach (ICD-10-PCS; principal; 2018-09-15)
PROC: 4A023N7 Measurement of Cardiac Sampling and Pressure, Left Heart, Percutaneous Approach (ICD-10-PCS; 2018-09-16)
PROC: B211YZZ Fluoroscopy of Multiple Coronary Arteries using Other Contrast (ICD-10-PCS; 2018-09-16)
PROC: 5A09457 Assistance with Respiratory Ventilation, 24-96 Consecutive Hours, Continuous Positive Airway Pressure (ICD-10-PCS; 2018-09-17)
DX: A41.9 Sepsis, unspecified organism (principal); R65.21 Severe sepsis with septic shock; J18.9 Pneumonia, unspecified organism; J96.01 Acute respiratory failure with hypoxia; I21.4 Non-ST elevation (NSTEMI) myocardial infarction; I50.21 Acute systolic (congestive) heart failure; E87.2 Acidosis; N39.0 Urinary tract infection, site not specified; N17.9 Acute kidney failure, unspecified; D63.8 Anemia in other chronic diseases classified elsewhere; I11.0 Hypertensive heart disease with heart failure; E11.65 Type 2 diabetes mellitus with hyperglycemia; E78.5 Hyperlipidemia, unspecified; I48.0 Paroxysmal atrial fibrillation; D64.9 Anemia, unspecified; E11.9 Type 2 diabetes mellitus without complications; E66.9 Obesity, unspecified; I25.5 Ischemic cardiomyopathy; I25.10 Atherosclerotic heart disease of native coronary artery without angina pectoris; I35.0 Nonrheumatic aortic (valve) stenosis; R74.0 Nonspecific elevation of levels of transaminase and lactic acid dehydrogenase [LDH]; Z66 Do not resuscitate; Z68.29 Body mass index [BMI] 29.0-29.9, adult
CPT/HCPCS: 36415; 36600; 71045; 80048; 80053; 80061; 80162; 81001; 81003; 82550; 82553; 82570; 82803; 82962; 83036; 83605; 83735; 83880; 84100; 84145; 84300; 84436; 84479; 84484; 84560; 85025; 85610; 85730; 87040; 87081; 87086; 87400; 89190; 92526; 92610; 93005; 93306; 93458; 94640; 94660; 94664; 96374; 96375; 97110; 97116; 97162; 97530; C1887; C1894; J0282; J0456; J0692; J0696; J1644; J1815; J1940; J2250; J2270; J2405; J2543; J2930; J3010; J3475; J3480; J7030; J7040; J7050; J7060; J7070; P9047; Q9967

== ENCOUNTER 2018-10-14 16:47 | Inpatient (IN) | payer MEDICARE, OTHER ==
[~2018-10-14] VITALS: Ht 157.5 cm; Wt 75.0 kg
[~2018-10-14 16:47] MED LIST changes: +AMIO200T4 PO; +APIX5TAB PO; -ASPI-650; +ASPI-817 PO; +ATOR-2 PO; -CARV25TA79; -CYCL10TA7; -DICL25TA; -FOLI-49; +FOLI-49 PO; -METF100010; +METO-335 PO; -NIFE30TA; -NIFE60TA18; +NOVO3I SC; -SIMV20TA; +SPIR25TA PO; -VALS80TA2; -[UNRECOGNIZED DRUG - CODE]
[2018-10-14 18:48] VITALS: BP 133/65; PULSE 79; RESP 18
[2018-10-14 20:00] VITALS: Ht 157.5 cm; Wt 75.0 kg
[2018-10-14] MEDS ORDERED: ALBUTEROL/IPRATROPIUM (NEB) 3 ML AMP HHN PRN (20:00)
[2018-10-14] MEDS ORDERED: ZOLPIDEM 5 MG TAB PO PRN (20:00)
[2018-10-14] MEDS ORDERED: SILVER SULFADIAZINE 1% 25 GM CR TOP PRN (20:00)
[2018-10-14] MEDS ORDERED: ONDANSETRON 4 MG INJ IV PRN (20:00)
[2018-10-14] MEDS ORDERED: DOCUSATE SODIUM 100 MG CAP PO PRN (20:00)
[2018-10-14 20:25] VITALS: BP 133/72; PULSE 79; RESP 19
[2018-10-14] MEDS ORDERED: PENDING SANTYL ORDER FOR WOUND CARE XX PRN (20:30)
[2018-10-14] MEDS: SILVER SULFADIAZINE 1% 25 GM CR TOP SCH (21:00)
[2018-10-14] MEDS: ATORVASTATIN 80 MG TAB PO SCH (21:54)
[2018-10-14] MEDS: AMIODARONE 200 MG TAB PO SCH (21:55)
[2018-10-14] MEDS: APIXABAN 5 MG TABLET PO SCH (21:55)
[2018-10-15 02:00] VITALS: BP 100/56; PULSE 69; RESP 18
[2018-10-15 07:00] VITALS: BP 92/54; PULSE 75; RESP 18
[2018-10-15] MEDS ORDERED: SPIRONOLACTONE 25 MG TAB PO SCH (09:00)
--- NOTE | 2018-10-15 09:32 | CONS ---
Assessment/Plan Assessment/Plan Hospital Course (Demo Recall) 1. Coronary artery disease status post recent non-ST elevation myocardial infarction 2. Congestive heart failure/cardiomyopathy: Currently appears to be euvolemic chronic and stable second systolic and diastolic heart failure 3. Proximal atrial fibrillation: Coronary sinus rhythm 4. Hyperkalemia and renal insufficiency 5. Diabetes 6. Dyslipidemia 7. Hypertension 8. Peripheral vascular disease with likely subclavian stenosis 9. Nausea Recommendations: I will stop the Aldactone given her hyperkalemia Continue with the Coreg aspirin Eliquis will be continued given her recurrent proximal atrial fibrillation Amiodarone will be continued for now and slowly will decrease the dose if able to remain remains stable Continue physical therapy and rehab Diabetic management as per internal medicine Thank you for his referral. We will continue to follow along with you LUIS A AGUILERA MD [facility] Consultation Date/Type/Reason Admit Date/Time Oct 14, 2018 at 18:35 Date of Consultation: Oct 15, 2018 Type of Consult Cardiology Reason for Consultation CHF/ valvular heart disease CAD. PAFIB Requesting Provider: ALEN FLORES MD, [facility] Date/Time of Note DATE: 10/15/18 TIME: 09:25 Hx of Present Illness Interventional cardiology consultation note Chief complaint: Debility shortness of breath Reason for consult: CHF/ valvular heart disease CAD. PAFIB History of present illness: Thank you for this referral. History was obtained from the patient review of the chart review of the old chart discussion with the staff and physician discussion with patient family and son at the bedside. Patient also has been noted in previous admissions to [facility] and [facility] This is a pleasant 82-year-old English female with multiple complicated medical history who was transferred to our facility for physical therapy and rehab. Patient with history of coronary artery status post recent NM coronary angiography showed multivessel disease including left main disease and was not felt to be managed amenable to intervention and was not a candidate for bypass surgery and refused bypass surgery At this point patient denies any chest pain or pressure to me denies any PND orthopnea to me. Denies any palpitation to me. Patient complains of nausea mostly in the morning which has been getting worse. Allergies: No known drug allergies Medications were reviewed as per medical reconciliation sheet Family history: No history of early coronary artery disease Social history: Does not smoke or drink Past medical history: Coronary artery disease status post non-ST elevation myocardial infarction about a month ago. Hypertension, diabetes, dyslipidemia, proximal atrial fibrillation, status post recent pneumonia and sepsis shock, peripheral vascular disease with most likely left subclavian stenosis. Patient blood pressure in the right and left sides are quite different, chronic kidney disease Review of system: Patient denies all others except for above-mentioned Past Medical History Home Meds Active Scripts Insulin Aspart* (Novolog Insulin Pen*) 100 Unit/Ml Soln, 0 UNIT SC AC MEALS AND BEDTIME for 30 Days Prov:ALEX HYLTON 09/26/18 Spironolactone* (Aldactone*) 25 Mg Tablet, 25 MG PO DAILY for 30 Days, TAB Prov:ALEX HYLTON 09/26/18 Metoprolol Succinate* (Toprol XL*) 25 Mg Tab.sr.24h, 50 MG PO BID for 30 Days Prov:ALEX HYLTON 09/26/18 Atorvastatin* (Atorvastatin*) 80 Mg Tablet, 80 MG PO HS for 30 Days, TAB Prov:ALEX HYLTON 09/26/18 Amiodarone Hcl* (Amiodarone Hcl*) 200 Mg Tablet, 200 MG PO BID for 30 Days, TAB Prov:ALEX HYLTON 09/26/18 Apixaban* (Eliquis*) 5 Mg Tablet, 5 MG PO BID for 30 Days, TAB Prov:ALEX HYLTON 09/26/18 Reported Medications Folic Acid* (Folic Acid*) 1 Mg Tablet, 1 MG PO DAILY, TAB 09/23/18 Aspirin* (Aspirin* EC) 81 Mg Tablet.dr, 81 MG PO DAILY, TAB 09/23/18 Medications Current Medications Acetaminophen (Tylenol Tab) 650 mg Q6H PRN PO MILD PAIN(1-3)OR ELEVATED TEMP; Start 10/14/18 at 20:00 Albuterol/ Ipratropium (Duoneb) 3 ml Q2H RESP THERAPY PRN HHN SHORTNESS OF BREATH; Start 10/14/18 at 20:00 Amiodarone HCl (Cordarone) 200 mg BID PO Last administered on 10/14/18at 21:55; Admin Dose 200 MG; Start 10/14/18 at 21:00 Apixaban (Eliquis) 2.5 mg BID PO Last administered on 10/14/18at 21:55; Admin Dose 2.5 MG; Start 10/14/18 at 21:00 Aspirin (Aspirin) 81 mg DAILY PO ; Start 10/15/18 at 09:00 Atorvastatin Calcium (Lipitor) 80 mg HS PO Last administered on 10/14/18at 21:54; Admin Dose 80 MG; Start 10/14/18 at 21:00 Bisacodyl (Dulcolax) 10 mg DAILY PRN PO CONSTIPATION; Start 10/14/18 at 20:00 Carvedilol (Coreg) 6.25 mg BID PO Last administered on 10/14/18at 21:55; Admin Dose 6.25 MG; Start 10/14/18 at 21:00 Docusate Sodium (Colace) 100 mg Q12 PRN PO CONSTIPATION; Start 10/14/18 at 20:00 Nitroglycerin (Nitroglycerin (Sl Tab) 0.4 Mg) 1 tab Q5M PRN SL ANGINA; Start 10/14/18 at 20:00 Ondansetron HCl (Zofran Inj) 4 mg Q6H PRN IV NAUSEA AND/OR VOMITING; Start 10/14/18 at 20:00 Silver Sulfadiazine (Thermazene 1% 25 Gm) 1 applic Q12 TOP ; Start 10/14/18 at 21:00 Silver Sulfadiazine (Thermazene 1% 25 Gm) 1 applic NOTE PRN TOP NOTE; Start 10/14/18 at 20:00 Spironolactone (Aldactone) 25 mg DAILY PO ; Start 10/15/18 at 09:00 Zolpidem Tartrate (Ambien) 5 mg HS PRN PO INSOMNIA; Start 10/14/18 at 20:00 Miscellaneous Information (Pending [facility] Order For Wound Care) This patient braun... PRN PRN XX WOUND CARE; Start 10/14/18 at 20:30 Diagnostic Test (Pha) (Accu-Chek) 1 ea AC MEALS AND BEDTIME XX ; Start 10/15/18 at 11:30 Allergies: Coded Allergies: No Known Allergy (Verified Allergy, Unknown, 10/25/10) Past Surgical History Past Surgical Hx: no surgical history Social History Smoking Status: Never smoker Exam/Review of Systems Vital Signs Vitals Vital Signs Date Temp Pulse Resp B/P (MAP) Pulse Ox O2 O2 Flow FiO2 Time Delivery Rate 10/15/18 98.0 69 18 100/56 95 Room Air 02:00 (71) Intake and Output 10/14/18 10/14/18 10/15/18 1515:00 23:00 07:00 IntakeIntake Total 430 ml OutputOutput Total 150 ml BalanceBalance 280 ml Exam Exam General: Elderly female acute to be little older than stated age no acute distress HEENT: NC/AT. pupils are equal. round. NECK: NO JVD. no stridor. CV: RRR. systolic/diastolic murmur; no gallop or rubs. PULM: no wheezing or rhonchi. GI: SOFT, NT, ND, no rebound or guarding Extremity: trace B/L LE edema. no clubbing. neuro: awake and alert, . Psych: calm and pleasant rectal: deferred Vascular: Right radial pulses are stronger than the left side Most recent echocardiogram shows: Moderate left ventricular systolic dysfunction. Ejection fraction is visually estimated at 30-35 %. Tissue Doppler/Mitral Doppler indices are consistent with restrictive physiology with markedly elevated left atrial pressure (Stage III-IV diastolic dysfunction). Multiple segmental wall motion abnormalities. There is moderate enlargement of left atrium. There is mild enlargement of right atrium. Moderate mitral leaflet calcification. Moderate mitral annular calcification. Moderate to severe mitral valve regurgitation. Aortic valve not well visualized. Moderate to severe aortic stenosis however due to low cardiac output severity of aortic stenosis is underestimated. Aortic valve area 0.90 cm2. Mild to moderate aortic valve regurgitation. Normal appearance of the tricuspid valve. There is moderate tricuspid regurgitation. Dilated inferior vena cava with poor inspiratory collapse consistent with elevated right atrial pressures. Labs Result Diagram: 10/15/18 0622 10/15/18 0622 Results 24hrs Laboratory Tests Test 10/15/18 00:07 10/15/18 05:33 10/15/18 06:22 10/15/18 08:10 Urine Color YELLOW Urine Clarity CLEAR Urine pH 5.0 Urine Specific 1.015 [place] Urine Ketones NEGATIVE Urine Nitrite NEGATIVE Urine Bilirubin NEGATIVE Urine Urobilinogen NEGATIVE Urine Leukocyte TRACE A Esterase Urine Microscopic 1 RBC Urine Microscopic 3 WBC Urine Squamous FEW Epithelial Cells Urine Mucus FEW A Urine Hemoglobin 2+ H Urine Glucose NEGATIVE Urine Total Protein NEGATIVE Bedside Glucose 140 130 White Blood Count 6.7 Red Blood Count 3.36 L Hemoglobin 10.4 L Hematocrit 33.2 L Mean Corpuscular 98.8 Volume Mean Corpuscular 31.0 Hemoglobin Mean Corpuscular 31.3 L Hemoglobin Concent Red Cell 13.1 Distribution Width Platelet Count 160 Mean Platelet Volume 8.9 Immature 0.400 Granulocytes % Neutrophils % 57.4 Lymphocytes % 30.1 Monocytes % 9.4 Eosinophils % 2.4 Basophils % 0.3 Nucleated Red Blood 0.0 Cells % Immature 0.030 Granulocytes # Neutrophils # 3.8 Lymphocytes # 2.0 Monocytes # 0.6 Eosinophils # 0.2 Basophils # 0.0 Nucleated Red Blood 0.0 Cells # Sodium Level 136 Potassium Level 5.2 H Chloride Level 106 Carbon Dioxide Level 22 Anion Gap 8 Blood Urea Nitrogen 28 H Creatinine 1.71 H Est Glomerular Filtrat Rate mL/min Glucose Level 137 Calcium Level 9.3 Total Bilirubin 0.3 Direct Bilirubin 0.00 Indirect Bilirubin 0.3 Aspartate Amino 16 Transf (AST/SGOT) Alanine 19 Aminotransferase (AL T/SGPT) Alkaline Phosphatase 104 Total Protein 6.9 Albumin 3.2 L Globulin 3.70 H Albumin/Globulin 0.86 Ratio Medications Medications Current Medications Acetaminophen (Tylenol Tab) 650 mg Q6H PRN PO MILD PAIN(1-3)OR ELEVATED TEMP; Start 10/14/18 at 20:00 Albuterol/ Ipratropium (Duoneb) 3 ml Q2H RESP THERAPY PRN HHN SHORTNESS OF BR EATH; Start 10/14/18 at 20:00 Amiodarone HCl (Cordarone) 200 mg BID PO Last administered on 10/14/18at 21:55; Admin Dose 200 MG; Start 10/14/18 at 21:00 Apixaban (Eliquis) 2.5 mg BID PO Last administered on 10/14/18at 21:55; Admin Dose 2.5 MG; Start 10/14/18 at 21:00 Aspirin (Aspirin) 81 mg DAILY PO ; Start 10/15/18 at 09:00 Atorvastatin Calcium (Lipitor) 80 mg HS PO Last administered on 10/14/18at 21:54; Admin Dose 80 MG; Start 10/14/18 at 21:00 Bisacodyl (Dulcolax) 10 mg DAILY PRN PO CONSTIPATION; Start 10/14/18 at 20:00 Carvedilol (Coreg) 6.25 mg BID PO Last administered on 10/14/18at 21:55; Admin Dose 6.25 MG; Start 10/14/18 at 21:00 Docusate Sodium (Colace) 100 mg Q12 PRN PO CONSTIPATION; Start 10/14/18 at 20:00 Nitroglycerin (Nitroglycerin (Sl Tab) 0.4 Mg) 1 tab Q5M PRN SL ANGINA; Start 10/14/18 at 20:00 Ondansetron HCl (Zofran Inj) 4 mg Q6H PRN IV NAUSEA AND/OR VOMITING; Start 10/14/18 at 20:00 Silver Sulfadiazine (Thermazene 1% 25 Gm) 1 applic Q12 TOP ; Start 10/14/18 at 21:00 Silver Sulfadiazine (Thermazene 1% 25 Gm) 1 applic NOTE PRN TOP NOTE; Start 10/14/18 at 20:00 Spironolactone (Aldactone) 25 mg DAILY PO ; Start 10/15/18 at 09:00 Zolpidem Tartrate (Ambien) 5 mg HS PRN PO INSOMNIA; Start 10/14/18 at 20:00 Miscellaneous Information (Pending [facility] Order For Wound Care) This patient braun... PRN PRN XX WOUND CARE; Start 10/14/18 at 20:30 Diagnostic Test (Pha) (Accu-Chek) 1 ea AC MEALS AND BEDTIME XX ; Start 10/15/18 at 11:30 LUIS A AGUILERA MD Oct 15, 2018 09:32
[2018-10-15] MEDS: APIXABAN 5 MG TABLET PO SCH ×2 (09:37→20:45)
[2018-10-15] MEDS: SILVER SULFADIAZINE 1% 25 GM CR TOP SCH ×2 (09:37→20:46)
[2018-10-15 09:38] VITALS: BP 147/76; PULSE 72; RESP 18
[2018-10-15] MEDS: ASPIRIN 81 MG TAB PO SCH (09:38)
[2018-10-15] MEDS: AMIODARONE 200 MG TAB PO SCH ×2 (09:38→20:46)
--- NOTE | 2018-10-15 11:54 | HP ---
Date/Time of Note Date/Time of Note DATE: 10/15/18 TIME: 11:41 Assessment/Plan VTE Prophylaxis Risk score (from Ns)>0 risk: 7 SCD applied (from Ns): No SCD contraindicated: other Pharmacological prophylaxis: apixaban Lines/Catheters IV Catheter Type (from [facility]): [place] Lock Assessment/Plan Hospital Course SUBJECTIVE: Elderly female, lying in bed comfortably. No acute distress. Gilmore ving mild nausea and reports constipation. OBJECTIVE: Vital signs-see below PHYSICAL EXAM: Constitutional: Well-developed, adequately built, lying in bed comfortably. Psych: nl mood/affect, no complaints Head: atraumatic, normocephalic Eyes: nl conjunctiva, nl sclera ENMT: mucosa pink and moist, nl external ears & nose Neck: non-tender, supple Respiratory: clear to auscultation, normal air movement Cardiovascular: Irregular rate and rhythm Gastrointestinal: non-tender, soft, bowel sounds active in all 4 quadrants. Musculoskeletal/extremities: nl extremities to inspection, motor strength equal bilaterally, no focal deficit. Normal pulses,no cyanosis, no edema. Neurological: Alert oriented 3,nl speech, nl strength Skin: nl turgor ASSESSMENT/PLAN: 82-year-old female with NSTEMI, triple-vessel coronary artery disease who declined coronary artery bypass grafting,htn,dyslipidemia,afib,dm, transferred from [place] for physical therapy. 1. Debility -Continue rehab 2. Triple-vessel coronary artery disease -Patient declined bypass grafting. At this time continue conservative medical management with Aspirin, Coreg, statin. Aldactone held secondary to hyperkalemia. 3. Atrial fibrillation -Currently rate controlled. -on amiodarone,BB and anticoagulate with Eliquis. 4. Congestive heart failure/cardiomyopathy with last known ejection fraction 30- 35%. -Clinically stable. -Continue beta-blockers. Not a candidate for Aldactone. -Follow-up cardiology recommendations 5. Hypertension -Stable. Continue current antihypertensives. 6. Dyslipidemia -Continue statin 7.DMII -Continue Accu-Cheks/ISS 8. Acute kidney injury versus CKD. -Patient also has hypokalemia. Aldactone is discontinued already. Will request nephrology consultation. -Monitor renal function. 9. Anemia of chronic disease. -Stable H&H. Continue to monitor. 10. Peripheral vascular disease. -Continue antiplatelets. DVT prophylaxis: Eliquis Patient is medically stable for physical therapy in the unit. Approximately 60 m spent on this history and physical. Patient was seen in collaboration with . Result Diagram: 10/15/18 0610/15/18 0622 Results 24hrs Laboratory Tests Test 10/15/18 00:07 10/15/18 05:33 10/15/18 06:22 10/15/18 08:10 Urine Color YELLOW Urine Clarity CLEAR Urine pH 5.0 Urine Specific 1.015 [place] Urine Ketones NEGATIVE Urine Nitrite NEGATIVE Urine Bilirubin NEGATIVE Urine Urobilinogen NEGATIVE Urine Leukocyte TRACE A Esterase Urine Microscopic 1 RBC Urine Microscopic 3 WBC Urine Squamous FEW Epithelial Cells Urine Mucus FEW A Urine Hemoglobin 2+ H Urine Glucose NEGATIVE Urine Total Protein NEGATIVE Bedside Glucose 140 130 White Blood Count 6.7 Red Blood Count 3.36 L Hemoglobin 10.4 L Hematocrit 33.2 L Mean Corpuscular 98.8 Volume Mean Corpuscular 31.0 Hemoglobin Mean Corpuscular 31.3 L Hemoglobin Concent Red Cell 13.1 Distribution Width Platelet Count 160 Mean Platelet Volume 8.9 Immature 0.400 Granulocytes % Neutrophils % 57.4 Lymphocytes % 30.1 Monocytes % 9.4 Eosinophils % 2.4 Basophils % 0.3 Nucleated Red Blood 0.0 Cells % Immature 0.030 Granulocytes # Neutrophils # 3.8 Lymphocytes # 2.0 Monocytes # 0.6 Eosinophils # 0.2 Basophils # 0.0 Nucleated Red Blood 0.0 Cells # Sodium Level 136 Potassium Level 5.2 H Chloride Level 106 Carbon Dioxide Level 22 Anion Gap 8 Blood Urea Nitrogen 28 H Creatinine 1.71 H Est Glomerular Filtrat Rate mL/min Glucose Level 137 Calcium Level 9.3 Total Bilirubin 0.3 Direct Bilirubin 0.00 Indirect Bilirubin 0.3 Aspartate Amino 16 Transf (AST/SGOT) Alanine 19 Aminotransferase (AL T/SGPT) Alkaline Phosphatase 104 Total Protein 6.9 Albumin 3.2 L Globulin 3.70 H Albumin/Globulin 0.86 Ratio Test 10/15/18 11:39 Bedside Glucose 193 HPI/ROS Admit Date/Time Admit Date/Time Oct 14, 2018 at 18:35 Hx of Present Illness This is a 82-year-old female with a past medical history of atrial fibrillation, coronary artery disease, dyslipidemia, diabetes, hypertension, hypothyroidism, who was admitted at [facility] on 09/14/2018 where she initially presented with shortness of breath, found to have A. fib with RVR and non-ST elevation myocardial infarction. During her hospitalization at [facility], patient underwent cardiac catheterization with triple- vessel disease, for which patient and family declined CABG. She was also placed DNR/DNI status. Patient's hospitalization was also noted for pneumonia and hyp oxic respiratory failure. She was then stabilized medically with cardiac medication and was transferred to [place] respiratory care for further rehabilitation. Patient did well and [place] and was then transferred to [facility] unit on 10/14/2018 for physical therapy. At my encounter with the patient, she denied chest pain, palpitation, shortness of breath, vomiting, diarrhea, fever, chills, abdominal pain. Patient admits to nausea and constipation. He also has trace edema bilateral lower extremities. Labs showed hemoglobin 10.4, hematocrit 33.2, potassium 5.2, BUN 28, creatinine 1.71. ROS A 12 point review of system was assessed and is negative other than what is mentioned in the HPI. PMH/Family/Social Past Medical History See HPI Medications Current Medications Acetaminophen (Tylenol Tab) 650 mg Q6H PRN PO MILD PAIN(1-3)OR ELEVATED TEMP; Start 10/14/18 at 20:00 Albuterol/ Ipratropium (Duoneb) 3 ml Q2H RESP THERAPY PRN HHN SHORTNESS OF BREATH; Start 10/14/18 at 20:00 Amiodarone HCl (Cordarone) 200 mg BID PO Last administered on 10/15/18at 09:38; Admin Dose 200 MG; Start 10/14/18 at 21:00 Apixaban (Eliquis) 2.5 mg BID PO Last administered on 10/15/18at 09:37; Admin Dose 2.5 MG; Start 10/14/18 at 21:00 Aspirin (Aspirin) 81 mg DAILY PO Last administered on 10/15/18at 09:38; Admin Dose 81 MG; Start 10/15/18 at 09:00 Atorvastatin Calcium (Lipitor) 80 mg HS PO Last administered on 10/14/18at 21:54; Admin Dose 80 MG; Start 10/14/18 at 21:00 Bisacodyl (Dulcolax) 10 mg DAILY PRN PO CONSTIPATION; Start 10/14/18 at 20:00 Carvedilol (Coreg) 6.25 mg BID PO Last administered on 10/15/18at 09:36; Admin Dose 6.25 MG; Start 10/14/18 at 21:00 Docusate Sodium (Colace) 100 mg Q12 PRN PO CONSTIPATION; Start 10/14/18 at 20:00 Nitroglycerin (Nitroglycerin (Sl Tab) 0.4 Mg) 1 tab Q5M PRN SL ANGINA; Start 10/14/18 at 20:00 Ondansetron HCl (Zofran Inj) 4 mg Q6H PRN IV NAUSEA AND/OR VOMITING Last administered on 10/15/18at 09:27; Admin Dose 4 MG; Start 10/14/18 at 20:00 Silver Sulfadiazine (Thermazene 1% 25 Gm) 1 applic Q12 TOP Last administered on 10/15/18at 09:37; Admin Dose 1 APPLIC; Start 10/14/18 at 21:00 Silver Sulfadiazine (Thermazene 1% 25 Gm) 1 applic NOTE PRN TOP NOTE; Start 10/14/18 at 20:00 Zolpidem Tartrate (Ambien) 5 mg HS PRN PO INSOMNIA; Start 10/14/18 at 20:00 Miscellaneous Information (Pending [facility] Order For Wound Care) This patient gilmore... PRN PRN XX WOUND CARE; Start 10/14/18 at 20:30 Diagnostic Test (Pha) (Accu-Chek) 1 ea AC MEALS AND BEDTIME XX ; Start 10/15/18 at 11:30 Eye Lubricant (Artificial Tears Oph) 2 drop BID PRN BOTH EYES DRY EYES; Start 10/15/18 at 11:00; Status UNV Coded Allergies: No Known Allergy (Verified Allergy, Unknown, 10/25/10) Past Surgical History See HPI Past Surgical Hx: no surgical history Family History Significant Family History: no pertinent family hx Social History Denied history of alcohol, smoking or illicit drug use. Smoking Status: Never smoker Exam/Review of Systems Vital Signs Vitals Vital Signs Date Temp Pulse Resp B/P (MAP) Pulse Ox O2 O2 Flow FiO2 Time Delivery Rate 10/15/18 72 18 147/76 09:38 (99) 10/15/18 97.5 96 Room Air 07:00 Intake and Output 10/14/18 10/14/18 10/15/18 1414:59 22:59 06:59 IntakeIntake Total 430 ml OutputOutput Total 150 ml BalanceBalance 280 ml BRIANA PABLO NP Oct 15, 2018 11:53
[2018-10-15] MEDS: ACCU-CHEK XX SCH ×3 (12:15→20:56)
[2018-10-15 14:00] VITALS: BP 123/52; PULSE 57; RESP 18
--- NOTE | 2018-10-15 15:05 | CONS ---
Assessment/Plan Assessment/Plan Assessment/Plan (Daily) 1, acute hyperkalemia 2. STANLEY on CKD III 3. H./o CKD III due to CHF and HTN 4. Cardiomyopathy with EF 30-35% 5. h/o CAD three vessel, pt declined CABG 6.H/o Atrila firbillation 7. H/o HTN 8. H/O HL 9. H/o PAD 10. Anemia of chronic disease Plan: See in Rehab floor kayexalate 15 gram Po x 1 for hyperkalemia BP stable, Continue current meds, ASA< Lipitor Amiodraone for rate control, eliquis for anticoagulation for atrial fibrillation thanks for consultatio, I will continue to follow up Consultation Date/Type/Reason Admit Date/Time Oct 14, 2018 at 18:35 Date of Consultation: Oct 15, 2018 Type of Consult NEPHROLOGY Reason for Consultation Hyperkalemia, STANLEY on CKD Requesting Provider: BRIANA PABLO NP Date/Time of Note DATE: 10/15/18 TIME: 15:05 Hx of Present Illness 82-year-old female with NSTEMI, triple-vessel coronary artery disease who declined coronary artery bypass grafting,htn,dyslipidemia,afib,dm, transferred from [place] for physical therapy., K 5.2, BUN/Cr 28/1.71, EF 30-35% with H/o c ardiomyopathy Renal has been consulte for hyperkalemia, acute kidney injury on CKD III Past Medical History Home Meds Active Scripts Insulin Aspart* (Novolog Insulin Pen*) 100 Unit/Ml Soln, 0 UNIT SC AC MEALS AND BEDTIME for 30 Days Prov:ALEX HYLTON 09/26/18 Spironolactone* (Aldactone*) 25 Mg Tablet, 25 MG PO DAILY for 30 Days, TAB Prov:ALEX HYLTON 09/26/18 Metoprolol Succinate* (Toprol XL*) 25 Mg Tab.sr.24h, 50 MG PO BID for 30 Days Prov:ALEX HYLTON 09/26/18 Atorvastatin* (Atorvastatin*) 80 Mg Tablet, 80 MG PO HS for 30 Days, TAB Prov:ALEX HYLTON 09/26/18 Amiodarone Hcl* (Amiodarone Hcl*) 200 Mg Tablet, 200 MG PO BID for 30 Days, TAB Prov:ALEX HYLTON 09/26/18 Apixaban* (Eliquis*) 5 Mg Tablet, 5 MG PO BID for 30 Days, TAB Prov:ALEX HYLTON 09/26/18 Reported Medications Folic Acid* (Folic Acid*) 1 Mg Tablet, 1 MG PO DAILY, TAB 09/23/18 Aspirin* (Aspirin* EC) 81 Mg Tablet.dr, 81 MG PO DAILY, TAB 09/23/18 Medications Current Medications Acetaminophen (Tylenol Tab) 650 mg Q6H PRN PO MILD PAIN(1-3)OR ELEVATED TEMP; Start 10/14/18 at 20:00 Albuterol/ Ipratropium (Duoneb) 3 ml Q2H RESP THERAPY PRN HHN SHORTNESS OF BREATH; Start 10/14/18 at 20:00 Amiodarone HCl (Cordarone) 200 mg BID PO Last administered on 10/15/18at 09:38; Admin Dose 200 MG; Start 10/14/18 at 21:00 Apixaban (Eliquis) 2.5 mg BID PO Last administered on 10/15/18at 09:37; Admin Dose 2.5 MG; Start 10/14/18 at 21:00 Aspirin (Aspirin) 81 mg DAILY PO Last administered on 10/15/18 09:38; Admin Dose 81 MG; Start 10/15/18 at 09:00 Atorvastatin Calcium (Lipitor) 80 mg HS PO Last administered on 10/14/18at 21:54; Admin Dose 80 MG; Start 10/14/18 at 21:00 Bisacodyl (Dulcolax) 10 mg DAILY PRN PO CONSTIPATION; Start 10/14/18 at 20:00 Carvedilol (Coreg) 6.25 mg BID PO Last administered on 10/15/18at 09:36; Admin Dose 6.25 MG; Start 10/14/18 at 21:00 Docusate Sodium (Colace) 100 mg Q12 PRN PO CONSTIPATION; Start 10/14/18 at 20:00 Nitroglycerin (Nitroglycerin (Sl Tab) 0.4 Mg) 1 tab Q5M PRN SL ANGINA; Start 10/14/18 at 20:00 Silver Sulfadiazine (Thermazene 1% 25 Gm) 1 applic Q12 TOP Last administered on 10/15/18at 09:37; Admin Dose 1 APPLIC; Start 10/14/18 at 21:00 Silver Sulfadiazine (Thermazene 1% 25 Gm) 1 applic NOTE PRN TOP NOTE; Start 10/14/18 at 20:00 Zolpidem Tartrate (Ambien) 5 mg HS PRN PO INSOMNIA; Start 10/14/18 at 20:00 Miscellaneous Information (Pending [facility] Order For Wound Care) This patient braun... PRN PRN XX WOUND CARE; Start 10/14/18 at 20:30 Diagnostic Test (Pha) (Accu-Chek) 1 ea AC MEALS AND BEDTIME XX Last administered on 10/15/18at 12:15; Admin Dose 1 EA; Start 10/15/18 at 11:30 Eye Lubricant (Artificial Tears Oph) 2 drop BID PRN BOTH EYES DRY EYES; Start 10/15/18 at 11:00 Ondansetron HCl (Zofran Odt) 4 mg Q6H PRN ODT N/V; Start 10/15/18 at 13:30 Allergies: Coded Allergies: No Known Allergy (Verified Allergy, Unknown, 10/25/10) Past Surgical History Past Surgical Hx: no surgical history Social History Smoking Status: Never smoker Exam/Review of Systems Exam Vitals Vital Signs Date Temp Pulse Resp B/P (MAP) Pulse Ox O2 O2 Flow FiO2 Time Delivery Rate 10/15/18 72 18 147/76 09:38 (99) 10/15/18 97.5 96 Room Air 07:00 Intake and Output 10/14/18 10/14/18 10/15/18 1515:00 23:00 07:00 IntakeIntake Total 430 ml OutputOutput Total 150 ml BalanceBalance 280 ml Constitutional: alert Head: normocephalic Eyes: nl conjunctiva ENMT: nl external ears & nose Neck: supple, non-tender Respiratory: clear to auscultation, normal air movement, diminished breath sounds Cardiovascular: regular rate and rhythm, nl pulses Gastrointestinal: soft, non-tender Musculoskeletal: nl extremities to inspection Extremities: normal pulses, calf tenderness Neurological: SAUSAGE COOKER II-XII intact, nl mental status, nl speech Skin: nl turgor Lymph: nl lymph nodes Results Result Diagram: 10/15/18 0622 10/15/18 0622 Results 24hrs Laboratory Tests Test 10/15/18 00:07 10/15/18 05:33 10/15/18 06:22 10/15/18 08:10 Urine Color YELLOW Urine Clarity CLEAR Urine pH 5.0 Urine Specific 1.015 [place] Urine Ketones NEGATIVE Urine Nitrite NEGATIVE Urine Bilirubin NEGATIVE Urine Urobilinogen NEGATIVE Urine Leukocyte TRACE A Esterase Urine Microscopic 1 RBC Urine Microscopic 3 WBC Urine Squamous FEW Epithelial Cells Urine Mucus FEW A Urine Hemoglobin 2+ H Urine Glucose NEGATIVE Urine Total Protein NEGATIVE Bedside Glucose 140 130 White Blood Count 6.7 Red Blood Count 3.36 L Hemoglobin 10.4 L Hematocrit 33.2 L Mean Corpuscular 98.8 Volume Mean Corpuscular 31.0 Hemoglobin Mean Corpuscular 31.3 L Hemoglobin Concent Red Cell 13.1 Distribution Width Platelet Count 160 Mean Platelet Volume 8.9 Immature 0.400 Granulocytes % Neutrophils % 57.4 Lymphocytes % 30.1 Monocytes % 9.4 Eosinophils % 2.4 Basophils % 0.3 Nucleated Red Blood 0.0 Cells % Immature 0.030 Granulocytes # Neutrophils # 3.8 Lymphocytes # 2.0 Monocytes # 0.6 Eosinophils # 0.2 Basophils # 0.0 Nucleated Red Blood 0.0 Cells # Sodium Level 136 Potassium Level 5.2 H Chloride Level 106 Carbon Dioxide Level 22 Anion Gap 8 Blood Urea Nitrogen 28 H Creatinine 1.71 H Est Glomerular Filtrat Rate mL/min Glucose Level 137 Calcium Level 9.3 Total Bilirubin 0.3 Direct Bilirubin 0.00 Indirect Bilirubin 0.3 Aspartate Amino 16 Transf (AST/SGOT) Alanine 19 Aminotransferase (AL T/SGPT) Alkaline Phosphatase 104 Total Protein 6.9 Albumin 3.2 L Globulin 3.70 H Albumin/Globulin 0.86 Ratio Test 10/15/18 11:39 Bedside Glucose 193 Medications Medication Current Medications Acetaminophen (Tylenol Tab) 650 mg Q6H PRN PO MILD PAIN(1-3)OR ELEVATED TEMP; Start 10/14/18 at 20:00 Albuterol/ Ipratropium (Duoneb) 3 ml Q2H RESP THERAPY PRN HHN SHORTNESS OF BREATH; Start 10/14/18 at 20:00 Amiodarone HCl (Cordarone) 200 mg BID PO Last administered on 10/15/18at 09:38; Admin Dose 200 MG; Start 10/14/18 at 21:00 Apixaban (Eliquis) 2.5 mg BID PO Last administered on 10/15/18at 09:37; Admin Dose 2.5 MG; Start 10/14/18 at 21:00 Aspirin (Aspirin) 81 mg DAILY PO Last administered on 10/15/18at 09:38; Admin Dose 81 MG; Start 10/15/18 at 09:00 Atorvastatin Calcium (Lipitor) 80 mg HS PO Last administered on 10/14/18at 21:54; Admin Dose 80 MG; Start 10/14/18 at 21:00 Bisacodyl (Dulcolax) 10 mg DAILY PRN PO CONSTIPATION; Start 10/14/18 at 20:00 Carvedilol (Coreg) 6.25 mg BID PO Last administered on 10/15/18at 09:36; Admin Dose 6.25 MG; Start 10/14/18 at 21:00 Docusate Sodium (Colace) 100 mg Q12 PRN PO CONSTIPATION; Start 10/14/18 at 20:00 Nitroglycerin (Nitroglycerin (Sl Tab) 0.4 Mg) 1 tab Q5M PRN SL ANGINA; Start 10/14/18 at 20:00 Silver Sulfadiazine (Thermazene 1% 25 Gm) 1 applic Q12 TOP Last administered on 10/15/18at 09:37; Admin Dose 1 APPLIC; Start 10/14/18 at 21:00 Silver Sulfadiazine (Thermazene 1% 25 Gm) 1 applic NOTE PRN TOP NOTE; Start 10/14/18 at 20:00 Zolpidem Tartrate (Ambien) 5 mg HS PRN PO INSOMNIA; Start 10/14/18 at 20:00 Miscellaneous Information (Pending [facility] Order For Wound Care) This patient braun... PRN PRN XX WOUND CARE; Start 10/14/18 at 20:30 Diagnostic Test (Pha) (Accu-Chek) 1 ea AC MEALS AND BEDTIME XX Last administered on 10/15/18at 12:15; Admin Dose 1 EA; Start 10/15/18 at 11:30 Eye Lubricant (Artificial Tears Oph) 2 drop BID PRN BOTH EYES DRY EYES; Start 10/15/18 at 11:00 Ondansetron HCl (Zofran Odt) 4 mg Q6H PRN ODT N/V; Start 10/15/18 at 13:30 BEKA HARPER MD Oct 15, 2018 15:05
--- NOTE | 2018-10-15 16:27 | CONS ---
DATE OF ADMISSION: 10/14/2018 DATE OF CONSULTATION: 10/15/2018 TYPE OF CONSULTATION: Rehabilitation post-admission physician evaluation. REHABILITATION IMPAIRMENT CATEGORY: Critical illness myopathy. ACTIVE COMORBIDITIES: 1. Debility, status post acute respiratory failure and sepsis. 2. Urinary tract infection. 3. Coronary artery disease, non-ST elevation [place] with patient declining CABG. 4. Atrial fibrillation. 5. Hypertension. 6. Diabetes mellitus. 7. Hyperlipidemia. 8. Hypothyroidism. 9. Acute on chronic kidney disease. 10. Anemia. 11. Dysphagia. 12. Impairments in self-care and mobility. HISTORY OF PRESENT ILLNESS: The patient is an 82-year-old female with history of multiple medical comorbidities, who was admitted with increased shortness of breath and acute respiratory failure in addition to non-ST elevation [place]. The patient was also noted to have atrial fibrillation with rapid ventricular response and pneumonia. The patient and family declined CABG. The patient's hospital course is also notable for hypertension. The patient was eventually transferred to [facility] where her medical condition had gradually improved to the point where she was on room air. The patient noted to have significant proximal weakness and debility presumed secondary to critical illness myopathy and has now been cleared to transfer to the rehabilitation unit for comprehensive interdisciplinary rehab care. FUNCTIONAL HISTORY: Prior to recent events, she was independent in self-care tasks and mobility. Currently, the patient requires moderate assist for self-care and mobility tasks. I have reviewed the preadmission screen and patient's current functional status is consistent with the preadmission screen. FAMILY AND SOCIAL HISTORY: The patient lives at home with family and hopes to return there upon discharge. PAST MEDICAL HISTORY: 1. Chronic atrial fibrillation. 2. Coronary artery disease. 3. Hypertension. 4. Diabetes mellitus. 5. Hyperlipidemia. 6. Osteoarthritis. 7. Hypothyroidism. CURRENT MEDICATIONS: 1. Tylenol p.r.n. 2. Albuterol inhaler. 3. Cordarone 200 mg p.o. b.i.d. 4. Eliquis 2.5 mg p.o. b.i.d. 5. Aspirin 81 mg p.o. daily. 6. Lipitor 80 mg p.o. daily. 7. Coreg 6.25 mg p.o. b.i.d. 8. Colace 100 mg p.o. q.12 p.r.n. 9. Nitroglycerin p.r.n. 10. topically. 11. [place] p.r.n. ALLERGIES: THE PATIENT WITH NO KNOWN DRUG ALLERGIES. PHYSICAL EXAMINATION: VITAL SIGNS: She is currently afebrile with stable vital signs. HEENT: Extraocular motions are intact. Oropharynx is clear. NECK: Supple. LUNGS: Clear anteriorly. CARDIAC: S1, S2. ABDOMEN: Soft, nontender, positive bowel sounds. NEUROLOGIC: She is awake, alert and oriented x3. She follows simple 1-step commands. Cranial nerves are grossly intact. She has antigravity strength in bilateral upper extremity and lower extremity. She does have impaired dynamic balance. PLAN: The patient has been admitted for comprehensive interdisciplinary acute rehab and is anticipated to tolerate 3 hours of daily therapy in divided doses for at least 5/7 days a week. The treatment plan will include: 1. Physical therapy to focus on bed mobility, transfers and household ambulation with the goal of having the patient reach standby assist level. 2. Occupational therapy to focus on hygiene, grooming, dressing, bathing and toileting activities with goal of having patient reach standby assist level. 3. Rehabilitation nursing for carryover of therapeutic interventions, the goal of continent of bowel and bladder and the goal of patient and family education with regard to the aforementioned issues. REHABILITATION BARRIER: Dysphagia. INTERVENTION FOR BARRIER: Speech therapy. Estimated Length of Stay: 14 days Disposition goal: Home with family I acknowledge that I performed a full physical examination on this patient within 24 hours of admission to the rehabilitation unit. I believe the patient is a good candidate for comprehensive interdisciplinary rehab care and is anticipated to make reasonable goals in a reasonable period of time as outlined above. Dictated By: LINO NELSON/EDWIN Conf#: [id number] DID#: [id number] CC: ALEN FLORES MD; LINDA ORDOÑEZ DO;*EndCC* MTDD
[2018-10-15] MEDS ORDERED: NA POLYST SULFON 15 GM/60 ML BTL PO ONE (16:30)
[2018-10-15 20:11] VITALS: BP 134/67; PULSE 68; RESP 18
[2018-10-15] MEDS: ATORVASTATIN 80 MG TAB PO SCH (20:45)
[2018-10-16 02:11] VITALS: BP 125/62; PULSE 72; RESP 18
[2018-10-16 08:00] VITALS: BP 183/77; PULSE 62; RESP 18
[2018-10-16] MEDS: ACCU-CHEK XX SCH ×4 (08:00→20:35)
--- NOTE | 2018-10-16 08:59 | CONS ---
Consult Date/Type/Reason Admit Date/Time Oct 14, 2018 at 18:35 Initial Consult Date 10/15/18 Type of Consultation: CV Requesting Provider: BRIANA PABLO NP Date/Time of Note DATE: 10/16/18 TIME: 08:55 Subjective Cardiology follow-up progress note Subjective: Discussed with the staff. Patient with no chest pain or pressure. No nausea vomiting today. No PND no orthopnea palpitation. Objective: General: Elderly female appears to be older than stated age in no acute distress HEENT: NC/AT. pupils are equal. round. NECK: NO JVD. no stridor. CV: RRR. systolic/diastolic murmur; no gallop or rubs. PULM: no wheezing or rhonchi. GI: SOFT, NT, ND, no rebound or guarding Extremity: trace B/L LE edema. no clubbing. neuro: awake and alert, . Psych: calm and pleasant rectal: deferred Vascular: Right radial pulses are stronger than the left side Most recent echocardiogram shows: Moderate left ventricular systolic dysfunction. Ejection fraction is visually estimated at 30-35 %. Tissue Doppler/Mitral Doppler indices are consistent with restrictive physiology with markedly elevated left atrial pressure (Stage III-IV diastolic dysfunction). Multiple segmental wall motion abnormalities. There is moderate enlargement of left atrium. There is mild enlargement of right atrium. Moderate mitral leaflet calcification. Moderate mitral annular calcification. Moderate to severe mitral valve regurgitation. Aortic valve not well visualized. Moderate to severe aortic stenosis however due to low cardiac output severity of aortic stenosis is underestimated. Aortic valve area 0.90 cm2. Mild to moderate aortic valve regurgitation. Normal appearance of the tricuspid valve. There is moderate tricuspid regurgitation. Dilated inferior vena cava with poor inspiratory collapse consistent with elevated right atrial pressures. Objective Vitals Vital Signs Date Temp Pulse Resp B/P (MAP) Pulse Ox O2 O2 Flow FiO2 Time Delivery Rate 10/16/18 98.0 62 18 183/77 94 Room Air 08:00 (112) Intake and Output 10/15/18 10/15/18 10/16/18 1515:00 23:00 07:00 IntakeIntake Total 1200 ml 1090 ml OutputOutput Total 600 ml BalanceBalance 600 ml 1090 ml Results/Medications Result Diagram: 10/15/18 0622 10/16/18 0649 Results 24 hrs Laboratory Tests Test 10/15/18 11:39 10/15/18 17:34 10/15/18 20:43 10/16/18 06:49 Bedside Glucose 193 207 132 Sodium Level 139 Potassium Level 5.1 Chloride Level 103 Carbon Dioxide Level 25 Anion Gap 11 Blood Urea Nitrogen 29 H Creatinine 1.82 H Est Glomerular Filtrat Rate mL/min Glucose Level 119 Calcium Level 9.1 Total Bilirubin 0.3 Direct Bilirubin 0.00 Indirect Bilirubin 0.3 Aspartate Amino 17 Transf (AST/SGOT) Alanine 17 Aminotransferase (AL T/SGPT) Alkaline Phosphatase 95 B-Type Natriuretic 5310 H Peptide Total Protein 6.8 Albumin 3.1 L Globulin 3.70 H Albumin/Globulin 0.83 Ratio Test 10/16/18 07:42 Bedside Glucose 125 Home Meds Active Scripts Insulin Aspart* (Novolog Insulin Pen*) 100 Unit/Ml Soln, 0 UNIT SC AC MEALS AND BEDTIME for 30 Days Prov:ALEX HYLTON 09/26/18 Spironolactone* (Aldactone*) 25 Mg Tablet, 25 MG PO DAILY for 30 Days, TAB Prov:ALEX HYLTON 09/26/18 Metoprolol Succinate* (Toprol XL*) 25 Mg Tab.sr.24h, 50 MG PO BID for 30 Days Prov:ALEX HYLTON 09/26/18 Atorvastatin* (Atorvastatin*) 80 Mg Tablet, 80 MG PO HS for 30 Days, TAB Prov:ALEX HYLTON 09/26/18 Amiodarone Hcl* (Amiodarone Hcl*) 200 Mg Tablet, 200 MG PO BID for 30 Days, TAB Prov:ALEX HYLTON 09/26/18 Apixaban* (Eliquis*) 5 Mg Tablet, 5 MG PO BID for 30 Days, TAB Prov:ALEX HYLTON 09/26/18 Reported Medications Folic Acid* (Folic Acid*) 1 Mg Tablet, 1 MG PO DAILY, TAB 09/23/18 Aspirin* (Aspirin* EC) 81 Mg Tablet.dr, 81 MG PO DAILY, TAB 09/23/18 Medications Current Medications Acetaminophen (Tylenol Tab) 650 mg Q6H PRN PO MILD PAIN(1-3)OR ELEVATED TEMP; Start 10/14/18 at 20:00 Albuterol/ Ipratropium (Duoneb) 3 ml Q2H RESP THERAPY PRN HHN SHORTNESS OF BREATH; Start 10/14/18 at 20:00 Amiodarone HCl (Cordarone) 200 mg BID PO Last administered on 10/15/18 20:46; Admin Dose 200 MG; Start 10/14/18 at 21:00 Apixaban (Eliquis) 2.5 mg BID PO Last administered on 10/15/18 20:45; Admin Dose 2.5 MG; Start 10/14/18 at 21:00 Aspirin (Aspirin) 81 mg DAILY PO Last administered on 10/15/18 09:38; Admin Dose 81 MG; Start 10/15/18 at 09:00 Atorvastatin Calcium (Lipitor) 80 mg HS PO Last administered on 10/15/18 20:45; Admin Dose 80 MG; Start 10/14/18 at 21:00 Bisacodyl (Dulcolax) 10 mg DAILY PRN PO CONSTIPATION; Start 10/14/18 at 20:00 Carvedilol (Coreg) 6.25 mg BID PO Last administered on 10/15/18 20:45; Admin Dose 6.25 MG; Start 10/14/18 at 21:00 Docusate Sodium (Colace) 100 mg Q12 PRN PO CONSTIPATION; Start 10/14/18 at 20:00 Nitroglycerin (Nitroglycerin (Sl Tab) 0.4 Mg) 1 tab Q5M PRN SL ANGINA; Start 10/14/18 at 20:00 Silver Sulfadiazine (Thermazene 1% 25 Gm) 1 applic Q12 TOP Last administered on 10/15/18 20:46; Admin Dose 1 APPLIC; Start 10/14/18 at 21:00 Silver Sulfadiazine (Thermazene 1% 25 Gm) 1 applic NOTE PRN TOP NOTE; Start 10/14/18 at 20:00 Zolpidem Tartrate (Ambien) 5 mg HS PRN PO INSOMNIA; Start 10/14/18 at 20:00 Miscellaneous Information (Pending [facility] Order For Wound Care) This patient braun... PRN PRN XX WOUND CARE; Start 10/14/18 at 20:30 Diagnostic Test (Pha) (Accu-Chek) 1 ea AC MEALS AND BEDTIME XX Last administered on 10/16/18 08:00; Admin Dose 1 EA; Start 10/15/18 at 11:30 Eye Lubricant (Artificial Tears Oph) 2 drop BID PRN BOTH EYES DRY EYES; Start 10/15/18 at 11:00 Ondansetron HCl (Zofran Odt) 4 mg Q6H PRN ODT N/V; Start 10/15/18 at 13:30 Assessment/Plan Hospital Course (Demo Recall) 1. Coronary artery disease status post recent non-ST elevation myocardial infarction 2. Congestive heart failure/cardiomyopathy: Currently appears to be euvolemic chronic and stable second systolic and diastolic heart failure 3. Proximal atrial fibrillation: currently in sinus rhythm 4. Hyperkalemia and renal insufficiency: f/u renal rec 5. Diabetes 6. Dyslipidemia 7. Hypertension 8. Peripheral vascular disease with likely subclavian stenosis 9. Nausea Recommendations: off Aldactone and BRIANNA-I given her hyperkalemia and renal failure Continue with the Coreg aspirin Eliquis will be continued given her recurrent proximal atrial fibrillation Amiodarone will be continued for now and slowly will decrease the dose if able to remain remains stable Continue physical therapy and rehab Diabetic management as per internal medicine will start on hydralazine / isordil combo for her HTN and CHF since can not tolerate BRIANNA Thank you for his referral. We will continue to follow along with you LUIS A AGUILERA MD [facility] LUIS A AGUILERA MD Oct 16, 2018 08:59
[2018-10-16 09:36] VITALS: BP 132/58; PULSE 83
[2018-10-16] MEDS: ASPIRIN 81 MG TAB PO SCH (09:36)
[2018-10-16] MEDS: AMIODARONE 200 MG TAB PO SCH ×2 (09:37→20:38)
[2018-10-16] MEDS: APIXABAN 5 MG TABLET PO SCH ×2 (09:38→20:39)
[2018-10-16] MEDS: SILVER SULFADIAZINE 1% 25 GM CR TOP SCH ×2 (09:39→20:45)
[2018-10-16] MEDS: ISOSORBIDE MONONITRATE(SR)30 MG TAB PO SCH (10:00)
[2018-10-16 11:59] VITALS: BP 106/53
--- NOTE | 2018-10-16 12:17 | CONS ---
Assessment/Plan Assessment/Plan Assessment/Plan (Daily) 1, acute hyperkalemia 2. STANLEY on CKD III 3. H./o CKD III due to CHF and HTN 4. Cardiomyopathy with EF 30-35% 5. h/o CAD three vessel, pt declined CABG 6.H/o Atrila firbillation 7. H/o HTN 8. H/O HL 9. H/o PAD 10. Anemia of chronic disease Plan: K 5.1, BUN/Cr 29/1.82, other electrolytes normal today Continue current meds, ASA< Lipitor Amiodraone for rate control, eliquis for anticoagulation for atrial fibrillation will follow up Consultation Date/Type/Reason Admit Date/Time Oct 14, 2018 at 18:35 Initial Consult Date 10/15/18 Type of Consult NEPHROLOGY Requesting Provider: ALEN FLORES MD, [facility] Date/Time of Note DATE: 10/16/18 TIME: 12:17 Exam/Review of Systems Exam Vitals Vital Signs Date Temp Pulse Resp B/P (MAP) Pulse Ox O2 O2 Flow FiO2 Time Delivery Rate 10/16/18 98.0 62 18 183/77 94 Room Air 08:00 (112) Intake and Output 10/15/18 10/15/18 10/16/18 1515:00 23:00 07:00 IntakeIntake Total 1200 ml 1090 ml OutputOutput Total 600 ml BalanceBalance 600 ml 1090 ml Exam Constitutional: alert Respiratory: clear to auscultation, normal air movement, diminished breath sounds Cardiovascular: regular rate and rhythm, nl pulses Gastrointestinal: soft, non-tender Musculoskeletal: nl extremities to inspection Extremities: normal pulses, calf tenderness Neurological: TAG MACHINE OPERATOR II-XII intact, nl mental status, nl speech Results Result Diagram: 10/15/18 0622 10/16/18 0649 Results 24hrs Laboratory Tests Test 10/15/18 17:34 10/15/18 20:43 10/16/18 06:49 10/16/18 07:42 Bedside Glucose 207 132 125 Sodium Level 139 Potassium Level 5.1 Chloride Level 103 Carbon Dioxide Level 25 Anion Gap 11 Blood Urea Nitrogen 29 H Creatinine 1.82 H Est Glomerular Filtrat Rate mL/min Glucose Level 119 Calcium Level 9.1 Total Bilirubin 0.3 Direct Bilirubin 0.00 Indirect Bilirubin 0.3 Aspartate Amino 17 Transf (AST/SGOT) Alanine 17 Aminotransferase (AL T/SGPT) Alkaline Phosphatase 95 B-Type Natriuretic 5310 H Peptide Total Protein 6.8 Albumin 3.1 L Globulin 3.70 H Albumin/Globulin 0.83 Ratio Test 10/16/18 11:57 Bedside Glucose 223 H Medications Medication Current Medications Acetaminophen (Tylenol Tab) 650 mg Q6H PRN PO MILD PAIN(1-3)OR ELEVATED TEMP; Start 10/14/18 at 20:00 Albuterol/ Ipratropium (Duoneb) 3 ml Q2H RESP THERAPY PRN HHN SHORTNESS OF BREATH; Start 10/14/18 at 20:00 Amiodarone HCl (Cordarone) 200 mg BID PO Last administered on 10/16/18 09:37; Admin Dose 200 MG; Start 10/14/18 at 21:00 Apixaban (Eliquis) 2.5 mg BID PO Last administered on 10/16/18 09:38; Admin Dose 2.5 MG; Start 10/14/18 at 21:00 Aspirin (Aspirin) 81 mg DAILY PO Last administered on 10/16/18 09:36; Admin Dose 81 MG; Start 10/15/18 at 09:00 Atorvastatin Calcium (Lipitor) 80 mg HS PO Last administered on 10/15/18 20:45; Admin Dose 80 MG; Start 10/14/18 at 21:00 Bisacodyl (Dulcolax) 10 mg DAILY PRN PO CONSTIPATION; Start 10/14/18 at 20:00 Carvedilol (Coreg) 6.25 mg BID PO Last administered on 10/16/18 09:37; Admin Dose 6.25 MG; Start 10/14/18 at 21:00 Docusate Sodium (Colace) 100 mg Q12 PRN PO CONSTIPATION; Start 10/14/18 at 20:00 Nitroglycerin (Nitroglycerin (Sl Tab) 0.4 Mg) 1 tab Q5M PRN SL ANGINA; Start 10/14/18 at 20:00 Silver Sulfadiazine (Thermazene 1% 25 Gm) 1 applic Q12 TOP Last administered on 10/16/18at 09:39; Admin Dose 1 APPLIC; Start 10/14/18 at 21:00 Silver Sulfadiazine (Thermazene 1% 25 Gm) 1 applic NOTE PRN TOP NOTE; Start 10/14/18 at 20:00 Zolpidem Tartrate (Ambien) 5 mg HS PRN PO INSOMNIA; Start 10/14/18 at 20:00 Miscellaneous Information (Pending [facility] Order For Wound Care) This patient braun... PRN PRN XX WOUND CARE; Start 10/14/18 at 20:30 Diagnostic Test (Pha) (Accu-Chek) 1 ea AC MEALS AND BEDTIME XX Last administered on 10/16/18at 11:59; Admin Dose 1 EA; Start 10/15/18 at 11:30 Eye Lubricant (Artificial Tears Oph) 2 drop BID PRN BOTH EYES DRY EYES; Start 10/15/18 at 11:00 Ondansetron HCl (Zofran Odt) 4 mg Q6H PRN ODT N/V; Start 10/15/18 at 13:30 Hydralazine HCl (Apresoline) 50 mg Q8 PO Last administered on 10/16/18at 09:36; Admin Dose 50 MG; Start 10/16/18 at 09:00 Isosorbide Mononitrate (Imdur) 30 mg DAILY PO ; Start 10/16/18 at 10:00 BEKA HARPER MD Oct 16, 2018 12:17
--- NOTE | 2018-10-16 12:44 | PN ---
Date/Time of Note Date/Time of Note DATE: 10/16/18 TIME: 12:41 Assessment/Plan VTE Prophylaxis Risk score (from Ns)>0 risk: 7 SCD applied (from [facility] [place]): No SCD contraindicated: other Pharmacological prophylaxis: apixaban Lines/Catheters IV C[facility]ter Type [facility]from [facility] [place] Assessment/Plan Hospital Course SUBJECTIVE: no acute distress OBJECTIVE: Vital signs-see below PHYSICAL EXAM: Constitutional: Well-developed, adequately built, lying in bed comfortably. Psych: nl mood/affect, no complaints Head: atraumatic, normocephalic Eyes: nl conjunctiva, nl sclera ENMT: mucosa pink and moist, nl external ears & nose Neck: non-tender, supple Respiratory: clear to auscultation, normal air movement Cardiovascular: Irregular rate and rhythm Gastrointestinal: non-tender, soft, bowel sounds active in all 4 quadrants. Musculoskeletal/extremities: nl extremities to inspection, motor strength equal bilaterally, no focal deficit. Normal pulses,no cyanosis, no edema. Neurological: Alert oriented 3,nl speech, nl strength Skin: nl turgor ASSESSMENT/PLAN: 82-year-old female with NSTEMI, triple-vessel coronary artery disease who declined coronary artery bypass grafting,htn,dyslipidemia,afib,dm, transferred from [place] for physical therapy. 1. Debility -Continue rehab 2. Triple-vessel coronary artery disease -Patient declined bypass grafting. At this time continue conservative medical management with Aspirin, Coreg, statin. Aldactone held secondary to hyperkalemi a. 3. Atrial fibrillation -Currently rate controlled. -on amiodarone,BB and anticoagulate with Eliquis. 4. Congestive heart failure/cardiomyopathy with last known ejection fraction 30- 35%. -Clinically stable. -Continue beta-blockers. Not a candidate for Aldactone. -Follow-up cardiology recommendations 5. Hypertension -needs more control-added hydralazine /indur by cards -monitor 6. Dyslipidemia -Continue statin 7.DMII -Continue Accu-Cheks/ISS 8. Acute kidney injury versus CKD. -Hyperkalemia stable today. Aldactone is discontinued already. -Monitor renal function. -f/u nephro recs 9. Anemia of chronic disease. -Stable H&H. Continue to monitor. 10. Peripheral vascular disease w subclavian stenosis -Continue antiplatelets. DVT prophylaxis: Eliquis Patient was seen in collaboration with . Result Diagram: 10/15/18 0622 10/16/18 0649 Results 24hrs Laboratory Tests Test 10/15/18 17:34 10/15/18 20:43 10/16/18 06:49 10/16/18 07:42 Bedside Glucose 207 132 125 Sodium Level 139 Potassium Level 5.1 Chloride Level 103 Carbon Dioxide Level 25 Anion Gap 11 Blood Urea Nitrogen 29 H Creatinine 1.82 H Est Glomerular Filtrat Rate mL/min Glucose Level 119 Calcium Level 9.1 Total Bilirubin 0.3 Direct Bilirubin 0.00 Indirect Bilirubin 0.3 Aspartate Amino 17 Transf (AST/SGOT) Alanine 17 Aminotransferase (AL T/SGPT) Alkaline Phosphatase 95 B-Type Natriuretic 5310 H Peptide Total Protein 6.8 Albumin 3.1 L Globulin 3.70 H Albumin/Globulin 0.83 Ratio Test 10/16/18 11:57 Bedside Glucose 223 H Exam/Review of Systems Exam Vitals Vital Signs Date Temp Pulse Resp B/P (MAP) Pulse Ox O2 O2 Flow FiO2 Time Delivery Rate 10/16/18 98.0 62 18 183/77 94 Room Air 08:00 (112) Intake and Output 10/15/18 10/15/18 10/16/18 1515:00 23:00 07:00 IntakeIntake Total 1200 ml 1090 ml OutputOutput Total 600 ml BalanceBalance 600 ml 1090 ml Results Results 24hrs Laboratory Tests Test 10/15/18 17:34 10/15/18 20:43 10/16/18 06:49 10/16/18 07:42 Bedside Glucose 207 132 125 Sodium Level 139 Potassium Level 5.1 Chloride Level 103 Carbon Dioxide Level 25 Anion Gap 11 Blood Urea Nitrogen 29 H Creatinine 1.82 H Est Glomerular Filtrat Rate mL/min Glucose Level 119 Calcium Level 9.1 Total Bilirubin 0.3 Direct Bilirubin 0.00 Indirect Bilirubin 0.3 Aspartate Amino 17 Transf (AST/SGOT) Alanine 17 Aminotransferase (AL T/SGPT) Alkaline Phosphatase 95 B-Type Natriuretic 5310 H Peptide Total Protein 6.8 Albumin 3.1 L Globulin 3.70 H Albumin/Globulin 0.83 Ratio Test 10/16/18 11:57 Bedside Glucose 223 H Medications Medication Current Medications Acetaminophen (Tylenol Tab) 650 mg Q6H PRN PO MILD PAIN(1-3)OR ELEVATED TEMP; Start 10/14/18 at 20:00 Albuterol/ Ipratropium (Duoneb) 3 ml Q2H RESP THERAPY PRN HHN SHORTNESS OF BREATH; Start 10/14/18 at 20:00 Amiodarone HCl (Cordarone) 200 mg BID PO Last administered on 10/16/18 09:37; Admin Dose 200 MG; Start 10/14/18 at 21:00 Apixaban (Eliquis) 2.5 mg BID PO Last administered on 10/16/18 09:38; Admin Dose 2.5 MG; Start 10/14/18 at 21:00 Aspirin (Aspirin) 81 mg DAILY PO Last administered on 10/16/18 09:36; Admin Dose 81 MG; Start 10/15/18 at 09:00 Atorvastatin Calcium (Lipitor) 80 mg HS PO Last administered on 10/15/18 20:45; Admin Dose 80 MG; Start 10/14/18 at 21:00 Bisacodyl (Dulcolax) 10 mg DAILY PRN PO CONSTIPATION; Start 10/14/18 at 20:00 Carvedilol (Coreg) 6.25 mg BID PO Last administered on 10/16/18 09:37; Admin Dose 6.25 MG; Start 10/14/18 at 21:00 Docusate Sodium (Colace) 100 mg Q12 PRN PO CONSTIPATION; Start 10/14/18 at 20:00 Nitroglycerin (Nitroglycerin (Sl Tab) 0.4 Mg) 1 tab Q5M PRN SL ANGINA; Start 10/14/18 at 20:00 Silver Sulfadiazine (Thermazene 1% 25 Gm) 1 applic Q12 TOP Last administered on 10/16/18at 09:39; Admin Dose 1 APPLIC; Start 10/14/18 at 21:00 Silver Sulfadiazine (Thermazene 1% 25 Gm) 1 applic NOTE PRN TOP NOTE; Start 10/14/18 at 20:00 Zolpidem Tartrate (Ambien) 5 mg HS PRN PO INSOMNIA; Start 10/14/18 at 20:00 Miscellaneous Information (Pending [facility] Order For Wound Care) This patient braun... PRN PRN XX WOUND CARE; Start 10/14/18 at 20:30 Diagnostic Test (Pha) (Accu-Chek) 1 ea AC MEALS AND BEDTIME XX Last administered on 10/16/18at 11:59; Admin Dose 1 EA; Start 10/15/18 at 11:30 Eye Lubricant (Artificial Tears Oph) 2 drop BID PRN BOTH EYES DRY EYES; Start 10/15/18 at 11:00 Ondansetron HCl (Zofran Odt) 4 mg Q6H PRN ODT N/V; Start 10/15/18 at 13:30 Hydralazine HCl (Apresoline) 50 mg Q8 PO Last administered on 10/16/18at 09:36; Admin Dose 50 MG; Start 10/16/18 at 09:00 Isosorbide Mononitrate (Imdur) 30 mg DAILY PO ; Start 10/16/18 at 10:00 BRIANA PABLO NP Oct 16, 2018 12:43
--- NOTE | 2018-10-16 12:55 | PN ---
Date/Time of Note Date/Time of Note DATE: 10/16/18 TIME: 12:55 Subjective Up for activities Objective Vital Signs Date Temp Pulse Resp B/P (MAP) Pulse Ox O2 O2 Flow FiO2 Time Delivery Rate 10/16/18 98.0 62 18 183/77 94 Room Air 08:00 (112) Intake and Output 10/15/18 10/15/18 10/16/18 1515:00 23:00 07:00 IntakeIntake Total 1200 ml 1090 ml OutputOutput Total 600 ml BalanceBalance 600 ml 1090 ml Exam pulm-cta min assist Results/Medications Result Diagram: 10/15/18 0622 10/16/18 0649 Results 24 hrs Laboratory Tests Test 10/15/18 17:34 10/15/18 20:43 10/16/18 06:49 10/16/18 07:42 Bedside Glucose 207 132 125 Sodium Level 139 Potassium Level 5.1 Chloride Level 103 Carbon Dioxide Level 25 Anion Gap 11 Blood Urea Nitrogen 29 H Creatinine 1.82 H Est Glomerular Filtrat Rate mL/min Glucose Level 119 Calcium Level 9.1 Total Bilirubin 0.3 Direct Bilirubin 0.00 Indirect Bilirubin 0.3 Aspartate Amino 17 Transf (AST/SGOT) Alanine 17 Aminotransferase (AL T/SGPT) Alkaline Phosphatase 95 B-Type Natriuretic 5310 H Peptide Total Protein 6.8 Albumin 3.1 L Globulin 3.70 H Albumin/Globulin 0.83 Ratio Test 10/16/18 11:57 Bedside Glucose 223 H Medications Current Medications Acetaminophen (Tylenol Tab) 650 mg Q6H PRN PO MILD PAIN(1-3)OR ELEVATED TEMP; Start 10/14/18 at 20:00 Albuterol/ Ipratropium (Duoneb) 3 ml Q2H RESP THERAPY PRN HHN SHORTNESS OF BREATH; Start 10/14/18 at 20:00 Amiodarone HCl (Cordarone) 200 mg BID PO Last administered on 10/16/18at 09:37; Admin Dose 200 MG; Start 10/14/18 at 21:00 Apixaban (Eliquis) 2.5 mg BID PO Last administered on 10/16/18at 09:38; Admin Dose 2.5 MG; Start 10/14/18 at 21:00 Aspirin (Aspirin) 81 mg DAILY PO Last administered on 10/16/18at 09:36; Admin Dose 81 MG; Start 10/15/18 at 09:00 Atorvastatin Calcium (Lipitor) 80 mg HS PO Last administered on 10/15/18at 20:45; Admin Dose 80 MG; Start 10/14/18 at 21:00 Bisacodyl (Dulcolax) 10 mg DAILY PRN PO CONSTIPATION; Start 10/14/18 at 20:00 Carvedilol (Coreg) 6.25 mg BID PO Last administered on 10/16/18at 09:37; Admin Dose 6.25 MG; Start 10/14/18 at 21:00 Docusate Sodium (Colace) 100 mg Q12 PRN PO CONSTIPATION; Start 10/14/18 at 20:00 Nitroglycerin (Nitroglycerin (Sl Tab) 0.4 Mg) 1 tab Q5M PRN SL ANGINA; Start 10/14/18 at 20:00 Silver Sulfadiazine (Thermazene 1% 25 Gm) 1 applic Q12 TOP Last administered on 10/16/18at 09:39; Admin Dose 1 APPLIC; Start 10/14/18 at 21:00 Silver Sulfadiazine (Thermazene 1% 25 Gm) 1 applic NOTE PRN TOP NOTE; Start 10/14/18 at 20:00 Zolpidem Tartrate (Ambien) 5 mg HS PRN PO INSOMNIA; Start 10/14/18 at 20:00 Miscellaneous Information (Pending [facility] Order For Wound Care) This patient braun... PRN PRN XX WOUND CARE; Start 10/14/18 at 20:30 Diagnostic Test (Pha) (Accu-Chek) 1 ea AC MEALS AND BEDTIME XX Last administered on 10/16/18at 11:59; Admin Dose 1 EA; Start 10/15/18 at 11:30 Eye Lubricant (Artificial Tears Oph) 2 drop BID PRN BOTH EYES DRY EYES; Start 10/15/18 at 11:00 Ondansetron HCl (Zofran Odt) 4 mg Q6H PRN ODT N/V; Start 10/15/18 at 13:30 Hydralazine HCl (Apresoline) 50 mg Q8 PO Last administered on 10/16/18at 09:36; Admin Dose 50 MG; Start 10/16/18 at 09:00 Isosorbide Mononitrate (Imdur) 30 mg DAILY PO ; Start 10/16/18 at 10:00 Assessment/Plan Additional Assessment/Plan rehab- Critical illness myopathy;Debility, status post acute respiratory failure and sepsis. Tolerating rehab program Coronary artery disease, non-ST elevation OR with patient declining CABG. Atrial fibrillation. Hypertension. Diabetes mellitus. Hyperlipidemia. Hypothyroidism. Acute on chronic kidney disease. Anemia. Dysphagia. Urinary tract infection. LINO HILL MD Oct 16, 2018 12:55
[2018-10-16 14:38] VITALS: BP 128/66; PULSE 73; RESP 18
[2018-10-16 19:16] VITALS: BP 110/63; PULSE 78; RESP 18
[2018-10-16] MEDS: ARTIFICIAL TEARS 15 ML OPH BOTH EYES PRN (20:37)
[2018-10-16] MEDS: ATORVASTATIN 80 MG TAB PO SCH (20:39)
[2018-10-16] MEDS: INSULIN ASPART [NOVOLOG] 3 ML PEN SC SCH (21:15)
[2018-10-16] MEDS ORDERED: DEXTROSE 50% 50 ML SYRINGE IV PRN ×2 (21:30)
[2018-10-16] MEDS ORDERED: GLUCOSE GEL 15 GRAM TUBE PO PRN ×2 (21:30)
[2018-10-16] MEDS ORDERED: GLUCAGON 1 MG INJ IM PRN (21:30)
[2018-10-16] MEDS ORDERED: GLUCOSE GEL 15 GRAM TUBE BUCCAL PRN (21:30)
[2018-10-17 02:17] VITALS: BP 128/67; PULSE 7; PULSE 78; RESP 18
[2018-10-17 07:00] VITALS: BP 153/59; PULSE 74; RESP 16
[2018-10-17 07:30] VITALS: BP 90/51; PULSE 74; RESP 18
[2018-10-17] MEDS ORDERED: INSULIN ASPART [NOVOLOG] 3 ML PEN SC SCH (07:35)
[2018-10-17] MEDS: INSULIN ASPART [NOVOLOG] 3 ML PEN SC SCH ×4 (07:35→20:34)
[2018-10-17] MEDS: ACCU-CHEK XX SCH ×4 (08:03→20:34)
--- NOTE | 2018-10-17 08:30 | CONS ---
Assessment/Plan Assessment/Plan Assessment/Plan (Daily) 1, acute hyperkalemia- Resolved 2. STANLEY on CKD III 3. H./o CKD III due to CHF and HTN 4. Cardiomyopathy with EF 30-35% 5. h/o CAD three vessel, pt declined CABG 6.H/o Atrila firbillation 7. H/o HTN 8. H/O HL 9. H/o PAD 10. Anemia of chronic disease Plan: K 4.2, BUN/Cr 29/1.82, other electrolytes normal today Continue current meds, ASA< Lipitor Amiodraone for rate control, eliquis for anticoagulation for atrial fibrillation will follow up Consultation Date/Type/Reason Admit Date/Time Oct 14, 2018 at 18:35 Initial Consult Date 10/15/18 Type of Consult NEPHROLOGY Requesting Provider: ALEN FLORES MD, [facility] Date/Time of Note DATE: 10/17/18 TIME: 08:30 Exam/Review of Systems Exam Vitals Vital Signs Date Temp Pulse Resp B/P (MAP) Pulse Ox O2 O2 Flow FiO2 Time Delivery Rate 10/17/18 74 16 153/59 97 07:00 (90) 10/17/18 97.8 Room Air 02:17 Intake and Output 10/16/18 10/16/18 10/17/18 1515:00 23:00 07:00 IntakeIntake Total 1600 ml 750 ml OutputOutput Total 600 ml BalanceBalance 1000 ml 750 ml Exam Constitutional: alert Respiratory: clear to auscultation, normal air movement, diminished breath sounds Cardiovascular: regular rate and rhythm, nl pulses Gastrointestinal: soft, non-tender Musculoskeletal: nl extremities to inspection Extremities: normal pulses, calf tenderness 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, nl mental status, nl speech Results Result Diagram: 10/15/18 0622 10/16/18 0649 Results 24hrs Laboratory Tests Test 10/16/18 11:57 10/16/18 17:40 10/16/18 20:31 10/16/18 21:22 Bedside Glucose 223 H 164 221 H 180 Test 10/17/18 08:00 Bedside Glucose 128 Medications Medication Current Medications Acetaminophen (Tylenol Tab) 650 mg Q6H PRN PO MILD PAIN(1-3)OR ELEVATED TEMP; Start 10/14/18 at 20:00 Albuterol/ Ipratropium (Duoneb) 3 ml Q2H RESP THERAPY PRN HHN SHORTNESS OF BREATH; Start 10/14/18 at 20:00 Amiodarone HCl (Cordarone) 200 mg BID PO Last administered on 10/16/18 20:38; Admin Dose 200 MG; Start 10/14/18 at 21:00 Apixaban (Eliquis) 2.5 mg BID PO Last administered on 10/16/18 20:39; Admin Dose 2.5 MG; Start 10/14/18 at 21:00 Aspirin (Aspirin) 81 mg DAILY PO Last administered on 10/16/18 09:36; Admin Dose 81 MG; Start 10/15/18 at 09:00 Atorvastatin Calcium (Lipitor) 80 mg HS PO Last administered on 10/16/18 20:39; Admin Dose 80 MG; Start 10/14/18 at 21:00 Bisacodyl (Dulcolax) 10 mg DAILY PRN PO CONSTIPATION; Start 10/14/18 at 20:00 Carvedilol (Coreg) 6.25 mg BID PO Last administered on 10/16/18 20:39; Admin Dose 6.25 MG; Start 10/14/18 at 21:00 Docusate Sodium (Colace) 100 mg Q12 PRN PO CONSTIPATION; Start 10/14/18 at 20:00 Nitroglycerin (Nitroglycerin (Sl Tab) 0.4 Mg) 1 tab Q5M PRN SL ANGINA; Start 10/14/18 at 20:00 Silver Sulfadiazine (Thermazene 1% 25 Gm) 1 applic Q12 TOP Last administered on 10/16/18at 20:45; Admin Dose 1 APPLIC; Start 10/14/18 at 21:00 Silver Sulfadiazine (Thermazene 1% 25 Gm) 1 applic NOTE PRN TOP NOTE; Start 10/14/18 at 20:00 Zolpidem Tartrate (Ambien) 5 mg HS PRN PO INSOMNIA; Start 10/14/18 at 20:00 [facility] This patient braun... PRN PRN XX WOUND CARE; Start 10/14/18 at 20:30 Diagnostic Test (Pha) (Accu-Chek) 1 ea AC MEALS AND BEDTIME XX Last administered on 10/17/18 08:03; Admin Dose 1 EA; Start 10/15/18 at 11:30 Eye Lubricant (Artificial Tears Oph) 2 drop BID PRN BOTH EYES DRY EYES Last adm inistered on 10/16/18at 20:37; Admin Dose 2 DROP; Start 10/15/18 at 11:00 Ondansetron HCl (Zofran Odt) 4 mg Q6H PRN ODT N/V; Start 10/15/18 at 13:30 Hydralazine HCl (Apresoline) 50 mg Q8 PO Last administered on 10/16/18at 21:43; Admin Dose 50 MG; Start 10/16/18 at 09:00 Isosorbide Mononitrate (Imdur) 30 mg DAILY PO ; Start 10/16/18 at 10:00 Insulin Aspart (Novolog Insulin Pen) NOVOLOG *MILD* ALGORITHM WITH MEALS BEDTIME SC ; Start 10/16/18 at 21:15 Miscellaneous Information 1 ea NOTE XX ; Start 10/16/18 at 21:30 Glucose (Glutose) 15 gm Q15M PRN PO DECREASED GLUCOSE; Start 10/16/18 at 21:30 Glucose (Glutose) 22.5 gm Q15M PRN PO DECREASED GLUCOSE; Start 10/16/18 at 21:30 Dextrose (D50w Syringe) 25 ml Q15M PRN IV DECREASED GLUCOSE; Start 10/16/18 at 21:30 Dextrose (D50w Syringe) 50 ml Q15M PRN IV DECREASED GLUCOSE; Start 10/16/18 at 21:30 Glucagon (Glucagen) 1 mg Q15M PRN IM DECREASED GLUCOSE; Start 10/16/18 at 21:30 Glucose (Glutose) 15 gm Q15M PRN BUCCAL DECREASED GLUCOSE; Start 10/16/18 at 21:30 BEKA HARPER MD Oct 17, 2018 08:30
[2018-10-17] MEDS: SILVER SULFADIAZINE 1% 25 GM CR TOP SCH ×2 (09:00→20:25)
[2018-10-17] MEDS: AMIODARONE 200 MG TAB PO SCH ×2 (09:16→20:33)
[2018-10-17] MEDS: ISOSORBIDE MONONITRATE(SR)30 MG TAB PO SCH (09:16)
[2018-10-17] MEDS: APIXABAN 5 MG TABLET PO SCH ×2 (09:16→20:25)
[2018-10-17] MEDS: ASPIRIN 81 MG TAB PO SCH (09:16)
[2018-10-17] MEDS: ONDANSETRON (ODT) 4 MG TAB ODT PRN (10:38)
[2018-10-17] MEDS: ARTIFICIAL TEARS 15 ML OPH BOTH EYES PRN ×2 (10:38→20:29)
--- NOTE | 2018-10-17 11:49 | PN ---
Date/Time of Note Date/Time of Note DATE: 10/17/18 TIME: 11:48 Subjective resting in bed this morning Objective Vital Signs Date Temp Pulse Resp B/P (MAP) Pulse Ox O2 O2 Flow FiO2 Time Delivery Rate 10/17/18 97.2 74 18 90/51 (64) 96 Room Air 07:30 Intake and Output 10/16/18 10/16/18 10/17/18 1414:59 22:59 06:59 IntakeIntake Total 1600 ml 750 ml OutputOutput Total 600 ml BalanceBalance 1000 ml 750 ml Exam min transfer cga ambulation few feet [id number] Results/Medications Result Diagram: 10/15/18 0622 10/17/18 0755 Results 24 hrs Laboratory Tests Test 10/16/18 11:57 10/16/18 17:40 10/16/18 20:31 10/16/18 21:22 Bedside Glucose 223 H 164 221 H 180 Test 10/17/18 07:55 10/17/18 08:00 Sodium Level 138 Potassium Level 4.8 Chloride Level 105 Carbon Dioxide Level 23 Anion Gap 10 Blood Urea Nitrogen 29 H Creatinine 1.82 H Est Glomerular Filtrat Rate mL/min Glucose Level 128 Calcium Level 9.1 Magnesium Level 1.9 Total Bilirubin 0.3 Direct Bilirubin 0.00 Indirect Bilirubin 0.3 Aspartate Amino 20 Transf (AST/SGOT) Alanine 16 Aminotransferase (AL T/SGPT) Alkaline Phosphatase 98 B-Type Natriuretic 6510 H Peptide Total Protein 7.0 Albumin 3.2 L Globulin 3.80 H Albumin/Globulin 0.84 Ratio Bedside Glucose 128 Medications Current Medications Acetaminophen (Tylenol Tab) 650 mg Q6H PRN PO MILD PAIN(1-3)OR ELEVATED TEMP; Start 10/14/18 at 20:00 Albuterol/ Ipratropium (Duoneb) 3 ml Q2H RESP THERAPY PRN HHN SHORTNESS OF BREATH; Start 10/14/18 at 20:00 Amiodarone HCl (Cordarone) 200 mg BID PO Last administered on 10/17/18at 09:16; Admin Dose 200 MG; Start 10/14/18 at 21:00 Apixaban (Eliquis) 2.5 mg BID PO Last administered on 10/17/18at 09:16; Admin Dose 2.5 MG; Start 10/14/18 at 21:00 Aspirin (Aspirin) 81 mg DAILY PO Last administered on 10/17/18 09:16; Admin Dose 81 MG; Start 10/15/18 at 09:00 Atorvastatin Calcium (Lipitor) 80 mg HS PO Last administered on 10/16/18 20:39; Admin Dose 80 MG; Start 10/14/18 at 21:00 Bisacodyl (Dulcolax) 10 mg DAILY PRN PO CONSTIPATION; Start 10/14/18 at 20:00 Carvedilol (Coreg) 6.25 mg BID PO Last administered on 10/17/18 09:17; Admin Dose 6.25 MG; Start 10/14/18 at 21:00 Docusate Sodium (Colace) 100 mg Q12 PRN PO CONSTIPATION; Start 10/14/18 at 20:00 Nitroglycerin (Nitroglycerin (Sl Tab) 0.4 Mg) 1 tab Q5M PRN SL ANGINA; Start 10/14/18 at 20:00 Silver Sulfadiazine (Thermazene 1% 25 Gm) 1 applic Q12 TOP Last administered on 10/16/18 20:45; Admin Dose 1 APPLIC; Start 10/14/18 at 21:00 Silver Sulfadiazine (Thermazene 1% 25 Gm) 1 applic NOTE PRN TOP NOTE; Start 10/14/18 at 20:00 Zolpidem Tartrate (Ambien) 5 mg HS PRN PO INSOMNIA; Start 10/14/18 at 20:00 Miscellaneous Information (Pending [facility] Order For Wound Care) This patient braun... PRN PRN XX WOUND CARE; Start 10/14/18 at 20:30 Diagnostic Test (Pha) (Accu-Chek) 1 ea AC MEALS AND BEDTIME XX Last administered on 10/17/18 08:03; Admin Dose 1 EA; Start 10/15/18 at 11:30 Eye Lubricant (Artificial Tears Oph) 2 drop BID PRN BOTH EYES DRY EYES Last administered on 10/17/18 10:38; Admin Dose 2 DROP; Start 10/15/18 at 11:00 Ondansetron HCl (Zofran Odt) 4 mg Q6H PRN ODT N/V Last administered on 10/17/18 10:38; Admin Dose 4 MG; Start 10/15/18 at 13:30 Hydralazine HCl (Apresoline) 50 mg Q8 PO Last administered on 10/16/18at 21:43; Admin Dose 50 MG; Start 10/16/18 at 09:00 Isosorbide Mononitrate (Imdur) 30 mg DAILY PO Last administered on 10/17/18at 09:16; Admin Dose 30 MG; Start 10/16/18 at 10:00 Insulin Aspart (Novolog Insulin Pen) NOVOLOG *MILD* ALGORITHM WITH MEALS BEDTIME SC ; Start 10/16/18 at 21:15 Miscellaneous Information 1 ea NOTE XX ; Start 10/16/18 at 21:30 Glucose (Glutose) 15 gm Q15M PRN PO DECREASED GLUCOSE; Start 10/16/18 at 21:30 Glucose (Glutose) 22.5 gm Q15M PRN PO DECREASED GLUCOSE; Start 10/16/18 at 21:3 0 Dextrose (D50w Syringe) 25 ml Q15M PRN IV DECREASED GLUCOSE; Start 10/16/18 at 21:30 Dextrose (D50w Syringe) 50 ml Q15M PRN IV DECREASED GLUCOSE; Start 10/16/18 at 21:30 Glucagon (Glucagen) 1 mg Q15M PRN IM DECREASED GLUCOSE; Start 10/16/18 at 21:30 Glucose (Glutose) 15 gm Q15M PRN BUCCAL DECREASED GLUCOSE; Start 10/16/18 at 21:30 Assessment/Plan Additional Assessment/Plan rehab- Critical illness myopathy;Debility, status post acute respiratory failure and sepsis. Continue rehab program Coronary artery disease, non-ST elevation ID with patient declining CABG. Atrial fibrillation. Hypertension. Diabetes mellitus. Hyperlipidemia. Hypothyroidism. Acute on chronic kidney disease. Anemia. Dysphagia. Urinary tract infection. LINO HILL MD Oct 17, 2018 11:49
--- NOTE | 2018-10-17 12:57 | PN ---
Date/Time of Note Date/Time of Note DATE: 10/17/18 TIME: 12:51 Assessment/Plan VTE Prophylaxis Risk score (from Ns)>0 risk: 5 SCD applied (from [facility]): No SCD contraindicated: other Pharmacological prophylaxis: apixaban Lines/Catheters IV [facility]ter Type (from [facility]): [place] Assessment/Plan Hospital Course SUBJECTIVE: no acute distress. Has been refusing insulin and she is having h yperglycemia. OBJECTIVE: Vital signs-see below PHYSICAL EXAM: Constitutional: Well-developed, adequately built, lying in bed comfortably. Psych: nl mood/affect, no complaints Head: atraumatic, normocephalic Eyes: nl conjunctiva, nl sclera ENMT: mucosa pink and moist, nl external ears & nose Neck: non-tender, supple Respiratory: clear to auscultation, normal air movement Cardiovascular: Irregular rate and rhythm Gastrointestinal: non-tender, soft, bowel sounds active in all 4 quadrants. Musculoskeletal/extremities: nl extremities to inspection, motor strength equal bilaterally, no focal deficit. Normal pulses,no cyanosis, no edema. Neurological: Alert oriented 3,nl speech, nl strength Skin: nl turgor ASSESSMENT/PLAN: 82-year-old female with NSTEMI, triple-vessel coronary artery disease who declined coronary artery bypass grafting,htn,dyslipidemia,afib,dm, transferred from [place] for physical therapy. 1. Debility -Continue rehab 2. Triple-vessel coronary artery disease -Patient declined bypass grafting. At this time continue conservative medical management with Aspirin, Coreg, statin. Aldactone held secondary to hyperkalemia. 3. Atrial fibrillation -Currently rate controlled. -on amiodarone,BB and anticoagulate with Eliquis. 4. Congestive heart failure/cardiomyopathy with last known ejection fraction 30- 35%. -Clinically stable. -Continue beta-blockers. Not a candidate for Aldactone. -Follow-up cardiology recommendations 5. Hypertension -cont.antihypertensives-cards managing -monitor 6. Dyslipidemia -Continue statin 7.DMII -w/hyperglycemia-refuses insulin-DM education ordered -Continue Accu-Cheks/ISS 8. Acute kidney injury on CKD stage III -Creat not much fluctuation -Monitor renal function. -f/u nephro recs 9. Anemia of chronic disease. -Stable H&H. Continue to monitor. 10. Peripheral vascular disease w subclavian stenosis -Continue antiplatelets. DVT prophylaxis: Hakeem Patient was seen in collaboration with . Result Diagram: 10/15/18 0622 10/17/18 0755 Results 24hrs Laboratory Tests Test 10/16/18 17:40 10/16/18 20:31 10/16/18 21:22 10/17/18 07:55 Bedside Glucose 164 221 H 180 Sodium Level 138 Potassium Level 4.8 Chloride Level 105 Carbon Dioxide Level 23 Anion Gap 10 Blood Urea Nitrogen 29 H Creatinine 1.82 H Est Glomerular Filtrat Rate mL/min Glucose Level 128 Calcium Level 9.1 Magnesium Level 1.9 Total Bilirubin 0.3 Direct Bilirubin 0.00 Indirect Bilirubin 0.3 Aspartate Amino 20 Transf (AST/SGOT) Alanine 16 Aminotransferase (AL T/SGPT) Alkaline Phosphatase 98 B-Type Natriuretic 6510 H Peptide Total Protein 7.0 Albumin 3.2 L Globulin 3.80 H Albumin/Globulin 0.84 Ratio Test 10/17/18 08:00 10/17/18 12:16 Bedside Glucose 128 192 Exam/Review of Systems Exam Vitals Vital Signs Date Temp Pulse Resp B/P (MAP) Pulse Ox O2 O2 Flow FiO2 Time Delivery Rate 10/17/18 97.2 74 18 90/51 (64) 96 Room Air 07:30 Intake and Output 10/16/18 10/16/18 10/17/18 1515:00 23:00 07:00 IntakeIntake Total 1600 ml 750 ml OutputOutput Total 600 ml BalanceBalance 1000 ml 750 ml Results Results 24hrs Laboratory Tests Test 10/16/18 17:40 10/16/18 20:31 10/16/18 21:22 10/17/18 07:55 Bedside Glucose 164 221 H 180 Sodium Level 138 Potassium Level 4.8 Chloride Level 105 Carbon Dioxide Level 23 Anion Gap 10 Blood Urea Nitrogen 29 H Creatinine 1.82 H Est Glomerular Filtrat Rate mL/min Glucose Level 128 Calcium Level 9.1 Magnesium Level 1.9 Total Bilirubin 0.3 Direct Bilirubin 0.00 Indirect Bilirubin 0.3 Aspartate Amino 20 Transf (AST/SGOT) Alanine 16 Aminotransferase (AL T/SGPT) Alkaline Phosphatase 98 B-Type Natriuretic 6510 H Peptide Total Protein 7.0 Albumin 3.2 L Globulin 3.80 H Albumin/Globulin 0.84 Ratio Test 10/17/18 08:00 10/17/18 12:16 Bedside Glucose 128 192 Medications Medication Current Medications Acetaminophen (Tylenol Tab) 650 mg Q6H PRN PO MILD PAIN(1-3)OR ELEVATED TEMP; Start 10/14/18 at 20:00 Albuterol/ Ipratropium (Duoneb) 3 ml Q2H RESP THERAPY PRN HHN SHORTNESS OF BREATH; Start 10/14/18 at 20:00 Amiodarone HCl (Cordarone) 200 mg BID PO Last administered on 10/17/18 09:16; Admin Dose 200 MG; Start 10/14/18 at 21:00 Apixaban (Eliquis) 2.5 mg BID PO Last administered on 10/17/18 09:16; Admin Dose 2.5 MG; Start 10/14/18 at 21:00 Aspirin (Aspirin) 81 mg DAILY PO Last administered on 10/17/18 09:16; Admin Dose 81 MG; Start 10/15/18 at 09:00 Atorvastatin Calcium (Lipitor) 80 mg HS PO Last administered on 10/16/18 20:39; Admin Dose 80 MG; Start 10/14/18 at 21:00 Bisacodyl (Dulcolax) 10 mg DAILY PRN PO CONSTIPATION; Start 10/14/18 at 20:00 Carvedilol (Coreg) 6.25 mg BID PO Last administered on 10/17/18 09:17; Admin Dose 6.25 MG; Start 10/14/18 at 21:00 Docusate Sodium (Colace) 100 mg Q12 PRN PO CONSTIPATION; Start 10/14/18 at 20:00 Nitroglycerin (Nitroglycerin (Sl Tab) 0.4 Mg) 1 tab Q5M PRN SL ANGINA; Start 10/14/18 at 20:00 Silver Sulfadiazine (Thermazene 1% 25 Gm) 1 applic Q12 TOP Last administered on 10/16/18 20:45; Admin Dose 1 APPLIC; Start 10/14/18 at 21:00 Silver Sulfadiazine (Thermazene 1% 25 Gm) 1 applic NOTE PRN TOP NOTE; Start at 20:00 Zolpidem Tartrate (Ambien) 5 mg HS PRN PO INSOMNIA; Start 10/14/18 at 20:00 [facility]isc[facility] This patient braun... PRN PRN XX WOUND CARE; Start 10/14/18 at 20:30 Diagnostic Test (Pha) (Accu-Chek) 1 ea AC MEALS AND BEDTIME XX Last adminis tered on 10/17/18at 12:18; Admin Dose 1 EA; Start 10/15/18 at 11:30 Eye Lubricant (Artificial Tears Oph) 2 drop BID PRN BOTH EYES DRY EYES Last administered on 10/17/18at 10:38; Admin Dose 2 DROP; Start 10/15/18 at 11:00 Ondansetron HCl (Zofran Odt) 4 mg Q6H PRN ODT N/V Last administered on 10/17/18 t 10:38; Admin Dose 4 MG; Start 10/15/18 at 13:30 Hydralazine HCl (Apresoline) 50 mg Q8 PO Last administered on 10/16/18at 21:43; Admin Dose 50 MG; Start 10/16/18 at 09:00 Isosorbide Mononitrate (Imdur) 30 mg DAILY PO Last administered on 10/17/18at 09:16; Admin Dose 30 MG; Start 10/16/18 at 10:00 Insulin Aspart (Novolog Insulin Pen) NOVOLOG *MILD* ALGORITHM WITH MEALS BEDTIME SC ; Start 10/16/18 at 21:15 Miscellaneous Information 1 ea NOTE XX ; Start 10/16/18 at 21:30 Glucose (Glutose) 15 gm Q15M PRN PO DECREASED GLUCOSE; Start 10/16/18 at 21:30 Glucose (Glutose) 22.5 gm Q15M PRN PO DECREASED GLUCOSE; Start 10/16/18 at 21:30 Dextrose (D50w Syringe) 25 ml Q15M PRN IV DECREASED GLUCOSE; Start 10/16/18 at 21:30 Dextrose (D50w Syringe) 50 ml Q15M PRN IV DECREASED GLUCOSE; Start 10/16/18 at 21:30 Glucagon (Glucagen) 1 mg Q15M PRN IM DECREASED GLUCOSE; Start 10/16/18 at 21:30 Glucose (Glutose) 15 gm Q15M PRN BUCCAL DECREASED GLUCOSE; Start 10/16/18 at 21:30 BRIANA PABLO NP Oct 17, 2018 12:57
[2018-10-17 14:00] VITALS: BP 131/45; PULSE 58; RESP 18
--- NOTE | 2018-10-17 17:33 | CONS ---
Consult Date/Type/Reason Admit Date/Time Oct 14, 2018 at 18:35 Initial Consult Date 10/15/18 Type of Consultation: CV Requesting Provider: ALEN FLORES MD, [facility] Date/Time of Note DATE: 10/17/18 TIME: 17:31 Subjective Cardiology follow-up progress note Subjective: Discussed with the staff. Patient with no chest pain or pressure. No nausea vomiting today. No PND no orthopnea palpitation. She has had labile blood pressure today and has been complained that she is weak and she has refused physical therapy. Discussed with the patient family members including granddaughter at the bedside. According to the granddaughter patient is homesick and wants to go home on Saturday and wants to go home on home hospice Discussed with nursing staff who also stated the patient has refused insulin as well Objective: General: Elderly female appears to be older than stated age in no acute distress HEENT: NC/AT. pupils are equal. round. NECK: NO JVD. no stridor. CV: RRR. systolic/diastolic murmur; no gallop or rubs. PULM: no wheezing or rhonchi. GI: SOFT, NT, ND, no rebound or guarding Extremity: trace B/L LE edema. no clubbing. neuro: awake and alert, . Psych: calm and pleasant rectal: deferred Vascular: Right radial pulses are stronger than the left side Most recent echocardiogram shows: Moderate left ventricular systolic dysfunction. Ejection fraction is visually estimated at 30-35 %. Tissue Doppler/Mitral Doppler indices are consistent with restrictive physiology with markedly elevated left atrial pressure (Stage III-IV diastolic dysfunction). Multiple segmental wall motion abnormalities. There is moderate enlargement of left atrium. There is mild enlargement of right atrium. Moderate mitral leaflet calcification. Moderate mitral annular calcification. Moderate to severe mitral valve regurgitation. Aortic valve not well visualized. Moderate to severe aortic stenosis however due to low cardiac output severity of aortic stenosis is underestimated. Aortic valve area 0.90 cm2. Mild to moderate aortic valve r egurgitation. Normal appearance of the tricuspid valve. There is moderate tricuspid regurgitation. Dilated inferior vena cava with poor inspiratory collapse consistent with elevated right atrial pressures. Objective Vitals Vital Signs Date Temp Pulse Resp B/P (MAP) Pulse Ox O2 O2 Flow FiO2 Time Delivery Rate 10/17/18 97.5 58 18 131/45 97 Room Air 14:00 (73) Intake and Output 3/21/19 3/21/19 3/22/19 1515:00 23:00 07:00 IntakeIntake Total 1600 ml 750 ml OutputOutput Total 600 ml BalanceBalance 1000 ml 750 ml Results/Medications Result Diagram: 10/15/18 0622 10/17/18 0755 Results 24 hrs Laboratory Tests Test 10/16/18 17:40 10/16/18 20:31 10/16/18 21:22 10/17/18 07:55 Bedside Glucose 164 221 H 180 Sodium Level 138 Potassium Level 4.8 Chloride Level 105 Carbon Dioxide Level 23 Anion Gap 10 Blood Urea Nitrogen 29 H Creatinine 1.82 H Est Glomerular Filtrat Rate mL/min Glucose Level 128 Calcium Level 9.1 Magnesium Level 1.9 Total Bilirubin 0.3 Direct Bilirubin 0.00 Indirect Bilirubin 0.3 Aspartate Amino 20 Transf (AST/SGOT) Alanine 16 Aminotransferase (AL T/SGPT) Alkaline Phosphatase 98 B-Type Natriuretic 6510 H Peptide Total Protein 7.0 Albumin 3.2 L Globulin 3.80 H Albumin/Globulin 0.84 Ratio Test 10/17/18 08:00 10/17/18 12:16 10/17/18 17:25 Bedside Glucose 128 192 217 Home Meds Active Scripts Insulin Aspart* (Novolog Insulin Pen*) 100 Unit/Ml Soln, 0 UNIT SC AC MEALS AND BEDTIME for 30 Days Prov:ALEX HYLTON 09/26/18 Spironolactone* (Aldactone*) 25 Mg Tablet, 25 MG PO DAILY for 30 Days, TAB Prov:ALEX HYLTON 09/26/18 Metoprolol Succinate* (Toprol XL*) 25 Mg Tab.sr.24h, 50 MG PO BID for 30 Days Prov:ALEX HYLTON 09/26/18 Atorvastatin* (Atorvastatin*) 80 Mg Tablet, 80 MG PO HS for 30 Days, TAB Prov:ALEX HYLTON 09/26/18 Amiodarone Hcl* (Amiodarone Hcl*) 200 Mg Tablet, 200 MG PO BID for 30 Days, TAB Prov:ALEX HYLTON 09/26/18 Apixaban* (Eliquis*) 5 Mg Tablet, 5 MG PO BID for 30 Days, TAB Prov:ALEX HYLTON 09/26/18 Reported Medications Folic Acid* (Folic Acid*) 1 Mg Tablet, 1 MG PO DAILY, TAB 09/23/18 Aspirin* (Aspirin* EC) 81 Mg Tablet.dr, 81 MG PO DAILY, TAB 09/23/18 Medications Current Medications Acetaminophen (Tylenol Tab) 650 mg Q6H PRN PO MILD PAIN(1-3)OR ELEVATED TEMP; Start 10/14/18 at 20:00 Albuterol/ Ipratropium (Duoneb) 3 ml Q2H RESP THERAPY PRN HHN SHORTNESS OF BREATH; Start 10/14/18 at 20:00 Amiodarone HCl (Cordarone) 200 mg BID PO Last administered on 10/17/18 09:16; Admin Dose 200 MG; Start 10/14/18 at 21:00 Apixaban (Eliquis) 2.5 mg BID PO Last administered on 10/17/18 09:16; Admin Dose 2.5 MG; Start 10/14/18 at 21:00 Aspirin (Aspirin) 81 mg DAILY PO Last administered on 10/17/18 09:16; Admin Dose 81 MG; Start 10/15/18 at 09:00 Atorvastatin Calcium (Lipitor) 80 mg HS PO Last administered on 10/16/18 20:39; Admin Dose 80 MG; Start 10/14/18 at 21:00 Bisacodyl (Dulcolax) 10 mg DAILY PRN PO CONSTIPATION; Start 10/14/18 at 20:00 Carvedilol (Coreg) 6.25 mg BID PO Last administered on 10/17/18 09:17; Admin Dose 6.25 MG; Start 10/14/18 at 21:00 Docusate Sodium (Colace) 100 mg Q12 PRN PO CONSTIPATION; Start 10/14/18 at 20:00 Nitroglycerin (Nitroglycerin (Sl Tab) 0.4 Mg) 1 tab Q5M PRN SL ANGINA; Start 10/14/18 at 20:00 Silver Sulfadiazine (Thermazene 1% 25 Gm) 1 applic Q12 TOP Last administered on 10/16/18at 20:45; Admin Dose 1 APPLIC; Start 10/14/18 at 21:00 Silver Sulfadiazine (Thermazene 1% 25 Gm) 1 applic NOTE PRN TOP NOTE; Start 10/14/18 at 20:00 Zolpidem Tartrate (Ambien) 5 mg HS PRN PO INSOMNIA; Start 10/14/18 at 20:00 Miscellaneous Information (Pending Santyl Order For Wound Care) This patient braun... PRN PRN XX WOUND CARE; Start 10/14/18 at 20:30 Diagnostic Test (Pha) (Accu-Chek) 1 ea AC MEALS AND BEDTIME XX Last administered on 10/17/18at 17:28; Admin Dose 1 EA; Start 10/15/18 at 11:30 Eye Lubricant (Artificial Tears Oph) 2 drop BID PRN BOTH EYES DRY EYES Last administered on 10/17/18at 10:38; Admin Dose 2 DROP; Start 10/15/18 at 11:00 Ondansetron HCl (Zofran Odt) 4 mg Q6H PRN ODT N/V Last administered on 10/17/18at 10:38; Admin Dose 4 MG; Start 10/15/18 at 13:30 Hydralazine HCl (Apresoline) 50 mg Q8 PO Last administered on 10/16/18at 21:43; Admin Dose 50 MG; Start 10/16/18 at 09:00 Isosorbide Mononitrate (Imdur) 30 mg DAILY PO Last administered on 10/17/18at 09:16; Admin Dose 30 MG; Start 10/16/18 at 10:00 Insulin Aspart (Novolog Insulin Pen) NOVOLOG *MILD* ALGORITHM WITH MEALS BEDTIME SC Last administered on 10/17/18at 17:28; Admin Dose 2 UNIT; Start 10/16/18 at 21:15 Miscellaneous Information 1 ea NOTE XX ; Start 10/16/18 at 21:30 Glucose (Glutose) 15 gm Q15M PRN PO DECREASED GLUCOSE; Start 10/16/18 at 21:30 Glucose (Glutose) 22.5 gm Q15M PRN PO DECREASED GLUCOSE; Start 10/16/18 at 21:30 Dextrose (D50w Syringe) 25 ml Q15M PRN IV DECREASED GLUCOSE; Start 10/16/18 at 21:30 Dextrose (D50w Syringe) 50 ml Q15M PRN IV DECREASED GLUCOSE; Start 10/16/18 at 21:30 Glucagon (Glucagen) 1 mg Q15M PRN IM DECREASED GLUCOSE; Start 10/16/18 at 21:30 Glucose (Glutose) 15 gm Q15M PRN BUCCAL DECREASED GLUCOSE; Start 10/16/18 at 21:30 Assessment/Plan Hospital Course (Demo Recall) 1. Coronary artery disease status post recent non-ST elevation myocardial infarction 2. Congestive heart failure/cardiomyopathy: Currently appears to be euvolemic chronic and stable second systolic and diastolic heart failure 3. Proximal atrial fibrillation: currently in sinus rhythm 4. Hyperkalemia and renal insufficiency: f/u renal rec 5. Diabetes 6. Dyslipidemia 7. Hypertension 8. Peripheral vascular disease with likely subclavian stenosis 9. Nausea Recommendations: off Aldactone and BRIANNA-I given her hyperkalemia and renal failure Continue with the Coreg aspirin Eliquis will be continued given her recurrent proximal atrial fibrillation Amiodarone will be continued for now and slowly will decrease the dose if able to remain remains stable Continue physical therapy and rehab Diabetic management as per internal medicine cont hydralazine / isordil combo for her HTN and CHF since can not tolerate BRIANNA No further cardiac recommendation at this point. We will follow-up as needed Thank you for his referral. LUIS A AGUILERA MD [facility] LUIS A AGUILERA MD Oct 17, 2018 17:33
[2018-10-17 19:19] VITALS: BP 131/48; PULSE 71; RESP 18
[2018-10-17] MEDS: ATORVASTATIN 80 MG TAB PO SCH (20:25)
[2018-10-18 02:00] VITALS: BP 127/57; PULSE 75; RESP 18
[2018-10-18] MEDS: NITROGLYCERIN (SL) 0.4 MG TAB SL PRN (02:46)
[2018-10-18] MEDS: AMLODIPINE 2.5 MG TAB PO ONE ×2 (03:24→03:28)
[2018-10-18] MEDS ORDERED: ASPIRIN 81 MG TAB PO ONE (04:00)
[2018-10-18] MEDS ORDERED: traMADol 50 MG TAB PO PRN (04:30)
[2018-10-18 07:30] VITALS: BP 145/63; PULSE 72; RESP 20
[2018-10-18] MEDS: INSULIN ASPART [NOVOLOG] 3 ML PEN SC SCH ×4 (07:35→21:00)
[2018-10-18] MEDS: ACCU-CHEK XX SCH ×4 (07:54→21:22)
[2018-10-18] MEDS: ISOSORBIDE MONONITRATE(SR)30 MG TAB PO SCH (09:00)
[2018-10-18] MEDS: ARTIFICIAL TEARS 15 ML OPH BOTH EYES PRN ×2 (09:10→20:33)
[2018-10-18] MEDS: SILVER SULFADIAZINE 1% 25 GM CR TOP SCH ×2 (09:10→20:30)
[2018-10-18] MEDS: AMIODARONE 200 MG TAB PO SCH ×2 (09:11→20:25)
[2018-10-18] MEDS: APIXABAN 5 MG TABLET PO SCH ×2 (09:11→20:24)
[2018-10-18] MEDS: BISACODYL (EC) 5 MG TAB PO PRN (09:11)
[2018-10-18] MEDS: ASPIRIN 81 MG TAB PO SCH (09:11)
--- NOTE | 2018-10-18 10:06 | PN ---
Date/Time of Note Date/Time of Note DATE: 10/18/18 TIME: 10:01 Assessment/Plan VTE Prophylaxis Risk score (from Ns)>0 risk: 5 SCD applied (from Ns): No SCD contraindicated: low risk/ambulating Pharmacological prophylaxis: heparin Pharm contraindication: low risk/ambulating Lines/Catheters IV Catheter [facility] (from [facility] [place] Lock Assessment/Plan Problems: (1) Debility Status: Chronic Comment: Patient is progressing in the acute rehabilitation protocol nicely (2) Diabetes mellitus type 2 in obese Status: Chronic Comment: imProved glycemic control under controlled circumstance (3) Essential hypertension Status: Chronic Comment: Adequate control. Given the heart failure going to go up on the carvedilol and try to adjust medications to daily or twice daily for convenience and cooperation and compliance (4) Paroxysmal atrial fibrillation Status: Chronic Comment: Presently in sinus rhythm on amiodarone therapy (5) Combined systolic and diastolic congestive heart failure, NYHA class 2 Status: Chronic Comment: Tolerating nitrates, beta blockade and hydralazine. Not using BRIANNA or ARB due to the renal insufficiency. Qualifiers: Congestive heart failure chronicity: chronic Qualified Codes: I50.42 - Chronic combined systolic (congestive) and diastolic (congestive) heart failure (6) Peripheral vascular disease due to secondary diabetes Status: Chronic Comment: Noted. Aggressive risk factor modification (7) Chronic kidney disease, stage III (moderate) Status: Chronic Comment: Is been slowly progressive but especially in 2019. (8) Anemia Status: Chronic Comment: Basic evaluation Qualifiers: Anemia type: unspecified type Qualified Codes: D64.9 - Anemia, unspecified (9) Coronary artery disease Status: Chronic Comment: Fortunately quiescent Qualifiers: Coronary Disease-Associated Artery/Lesion type: [place] artery [place] vs. transplanted heart: [place] heart Associated angina: without angina Qualified Codes: I25.10 - Atherosclerotic heart disease of [place] coronary artery without angina pectoris (10) Hyperlipidemia associated with type 2 diabetes mellitus Status: Chronic Comment: Aggressive risk factor modification (11) Stenosis of left subclavian artery Status: Chronic Comment: Noted and relatively mild Result Diagram: 10/15/18 0622 10/17/18 0755 Results 24hrs Laboratory Tests Test 10/17/18 12:16 10/17/18 17:25 10/17/18 20:27 10/18/18 02:48 Bedside Glucose 192 217 169 124 Test 10/18/18 03:27 10/18/18 07:39 Troponin I 0.021 Bedside Glucose 117 Subjective 24 Hr Interval Summary Free Text/Dictation Patient's [id number] translating. Patient actually is doing relatively well other concerned about blood pressure Constitutional: no complaints Respiratory: no complaints (No cough no wheezing no shortness of breath) Cardiovascular: no complaints (No chest pain no palpitations) Gastrointestinal: no complaints Genitourinary: no complaints Exam/Review of Systems Exam Vitals Vital Signs Date Temp Pulse Resp B/P (MAP) Pulse Ox O2 O2 Flow FiO2 Time Delivery Rate 10/18/18 97.6 72 20 145/63 98 Nasal 07:30 (90) Cannula Intake and Output 10/17/18 10/17/18 10/18/18 1515:00 23:00 07:00 IntakeIntake Total 100 ml 480 ml 700 ml BalanceBalance 100 ml 480 ml 700 ml Constitutional: alert, oriented Neck: supple, non-tender Respiratory: clear to auscultation, normal air movement Cardiovascular: regular rate and rhythm (Presently regular rhythm), nl pulses, murmurs/extra sounds (Upper sternal border grade 2 systolic murmur) Gastrointestinal: soft, nl liver, spleen, non-tender Results Results 24hrs Laboratory Tests Test 10/17/18 12:16 10/17/18 17:25 10/17/18 20:27 10/18/18 02:48 Bedside Glucose 192 217 169 124 Test 10/18/18 03:27 10/18/18 07:39 Troponin I 0.021 Bedside Glucose 117 Medications Medication Current Medications Acetaminophen (Tylenol Tab) 650 mg Q6H PRN PO MILD PAIN(1-3)OR ELEVATED TEMP; Start 10/14/18 at 20:00 Albuterol/ Ipratropium (Duoneb) 3 ml Q2H RESP THERAPY PRN HHN SHORTNESS OF BREATH; Start 10/14/18 at 20:00 Amiodarone HCl (Cordarone) 200 mg BID PO Last administered on 10/18/18at 09:11; Admin Dose 200 MG; Start 10/14/18 at 21:00 Apixaban (Eliquis) 2.5 mg BID PO Last administered on 10/18/18at 09:11; Admin Dose 2.5 MG; Start 10/14/18 at 21:00 Aspirin (Aspirin) 81 mg DAILY PO Last administered on 10/18/18 09:11; Admin Dose 81 MG; Start 10/15/18 at 09:00 Atorvastatin Calcium (Lipitor) 80 mg HS PO Last administered on 10/17/18 20:25; Admin Dose 80 MG; Start 10/14/18 at 21:00 Bisacodyl (Dulcolax) 10 mg DAILY PRN PO CONSTIPATION Last administered on 10/18/18 09:11; Admin Dose 10 MG; Start 10/14/18 at 20:00 Carvedilol (Coreg) 6.25 mg BID PO Last administered on 10/17/18 09:17; Admin Dose 6.25 MG; Start 10/14/18 at 21:00 Docusate Sodium (Colace) 100 mg Q12 PRN PO CONSTIPATION; Start 10/14/18 at 20:00 Nitroglycerin (Nitroglycerin (Sl Tab) 0.4 Mg) 1 tab Q5M PRN SL ANGINA Last administered on 10/18/18 02:46; Admin Dose 1 TAB; Start 10/14/18 at 20:00 Silver Sulfadiazine (Thermazene 1% 25 Gm) 1 applic Q12 TOP Last administered on 10/18/18 09:10; Admin Dose 1 APPLIC; Start 10/14/18 at 21:00 Silver Sulfadiazine (Thermazene 1% 25 Gm) 1 applic NOTE PRN TOP NOTE; Start 10/14/18 at 20:00 Zolpidem Tartrate (Ambien) 5 mg HS PRN PO INSOMNIA; Start 10/14/18 at 20:00 Miscellaneous Information (Pending [facility] Order For Wound Care) This patient braun... PRN PRN XX WOUND CARE; Start 10/14/18 at 20:30 Diagnostic Test (Pha) (Accu-Chek) 1 ea AC MEALS AND BEDTIME XX Last administered on 10/18/18 07:54; Admin Dose 1 EA; Start 10/15/18 at 11:30 Eye Lubricant (Artificial Tears Oph) 2 drop BID PRN BOTH EYES DRY EYES Last administered on 10/18/18 09:10; Admin Dose 2 DROP; Start 10/15/18 at 11:00 Ondansetron HCl (Zofran Odt) 4 mg Q6H PRN ODT N/V Last administered on 10/17/18at 10:38; Admin Dose 4 MG; Start 10/15/18 at 13:30 Hydralazine HCl (Apresoline) 50 mg Q8 PO Last administered on 10/16/18at 21:43; Admin Dose 50 MG; Start 10/16/18 at 09:00 Isosorbide Mononitrate (Imdur) 30 mg DAILY PO Last administered on 10/17/18at 09:16; Admin Dose 30 MG; Start 10/16/18 at 10:00 Insulin Aspart (Novolog Insulin Pen) NOVOLOG *MILD* ALGORITHM WITH MEALS BEDTIME SC Last administered on 10/17/18at 17:28; Admin Dose 2 UNIT; Start 10/16/18 at 21:15 Miscellaneous Information 1 ea NOTE XX ; Start 10/16/18 at 21:30 Glucose (Glutose) 15 gm Q15M PRN PO DECREASED GLUCOSE; Start 10/16/18 at 21:30 Glucose (Glutose) 22.5 gm Q15M PRN PO DECREASED GLUCOSE; Start 10/16/18 at 21:30 Dextrose (D50w Syringe) 25 ml Q15M PRN IV DECREASED GLUCOSE; Start 10/16/18 at 21:30 Dextrose (D50w Syringe) 50 ml Q15M PRN IV DECREASED GLUCOSE; Start 10/16/18 at 21:30 Glucagon (Glucagen) 1 mg Q15M PRN IM DECREASED GLUCOSE; Start 10/16/18 at 21:30 Glucose (Glutose) 15 gm Q15M PRN BUCCAL DECREASED GLUCOSE; Start 10/16/18 at 21:30 Tramadol HCl (Ultram) 50 mg Q6H PRN PO MODERATE PAIN LEVEL 4-6; Start 10/18/18 at 04:30 HELEN AGUILERA MD Oct 18, 2018 10:06
[2018-10-18 14:00] VITALS: BP 130/59; PULSE 77; RESP 20
[2018-10-18] MEDS: ATORVASTATIN 80 MG TAB PO SCH (20:24)
[2018-10-18 21:47] VITALS: BP 144/58; PULSE 84
--- NOTE | 2018-10-19 01:38 | CONS ---
Assessment/Plan Assessment/Plan Assessment/Plan (Daily) 1, acute hyperkalemia- Resolved as of 10/15/18 2. STANLEY on CKD III 3. H./o CKD III due to CHF and HTN 4. Cardiomyopathy with EF 30-35% 5. h/o CAD three vessel, pt declined CABG 6.H/o Atrila firbillation 7. H/o HTN 8. H/O HL 9. H/o PAD 10. Anemia of chronic disease Plan: BUN/Cr other electrolytes normal today Continue current meds, ASA< Lipitor Amiodraone for rate control, eliquis for anticoagulation for atrial fibrillation will follow up Patient seen in collaboration with Dr Clare Yousif nad seems comfortable in bed afebrile family at bed side- all Qs answered no new events reported overnight per staff Consultation Date/Type/Reason Admit Date/Time Oct 14, 2018 at 18:35 Initial Consult Date 10/15/18 Type of Consult nephrology Requesting Provider: ALEN FLORES MD, [facility] Date/Time of Note DATE: 10/19/18 TIME: 01:38 24 HR Interval Summary Free Text/Dictation 10/18/18 Entry nad seems comfortable in bed afebrile family at bed side- all Qs answered no new events reported overnight per staff Constitutional: requiring O2 Detailed Summary Eyes: no complaints ENT: no complaints Respiratory: no complaints Cardiovascular: no complaints Gastrointestinal: no complaints Genitourinary: no complaints Musculoskeletal: other (general weakness) Exam/Review of Systems Exam Vitals Vital Signs Date Temp Pulse Resp B/P (MAP) Pulse Ox O2 O2 Flow FiO2 Time Delivery Rate 10/18/18 84 144/58 21:47 (86) 10/18/18 97.6 20 97 Nasal 14:00 Cannula Intake and Output 10/18/18 10/18/18 10/19/18 1515:00 23:00 07:00 IntakeIntake Total 120 ml 640 ml OutputOutput Total 150 ml BalanceBalance 120 ml 490 ml Constitutional: alert, well developed Psych: nl mood/affect Eyes: nl lids, nl sclera ENMT: nl external ears & nose Neck: non-tender Respiratory: clear to auscultation Cardiovascular: nl pulses, other (s1s2) Gastrointestinal: soft, non-tender Musculoskeletal: muscle weakness Extremities: normal pulses Neurological: nl speech, other (alert/responsive) Skin: nl turgor Lymph: nontender Results Result Diagram: 10/15/18 0622 10/17/18 0755 Results 24hrs Laboratory Tests Test 10/18/18 02:48 10/18/18 03:27 10/18/18 07:39 10/18/18 11:10 Bedside Glucose 124 117 Troponin I 0.021 Iron Level 62 Total Iron Binding 236 L Capacity Percent Iron 26 Saturation Test 10/18/18 11:11 10/18/18 11:53 10/18/18 17:14 10/18/18 20:23 Ferritin 52.4 Bedside Glucose 206 154 137 Medications Medication Current Medications Acetaminophen (Tylenol Tab) 650 mg Q6H PRN PO MILD PAIN(1-3)OR ELEVATED TEMP; Start 10/14/18 at 20:00 Albuterol/ Ipratropium (Duoneb) 3 ml Q2H RESP THERAPY PRN HHN SHORTNESS OF B REATH; Start 10/14/18 at 20:00 Amiodarone HCl (Cordarone) 200 mg BID PO Last administered on 10/18/18 20:25; Admin Dose 200 MG; Start 10/14/18 at 21:00 Apixaban (Eliquis) 2.5 mg BID PO Last administered on 10/18/18 20:24; Admin Dose 2.5 MG; Start 10/14/18 at 21:00 Aspirin (Aspirin) 81 mg DAILY PO Last administered on 10/18/18 09:11; Admin Dose 81 MG; Start 10/15/18 at 09:00 Atorvastatin Calcium (Lipitor) 80 mg HS PO Last administered on 10/18/18 20:24; Admin Dose 80 MG; Start 10/14/18 at 21:00 Bisacodyl (Dulcolax) 10 mg DAILY PRN PO CONSTIPATION Last administered on 10/18/18 09:11; Admin Dose 10 MG; Start 10/14/18 at 20:00 Docusate Sodium (Colace) 100 mg Q12 PRN PO CONSTIPATION; Start 10/14/18 at 20:00 Nitroglycerin (Nitroglycerin (Sl Tab) 0.4 Mg) 1 tab Q5M PRN SL ANGINA Last a dministered on 10/18/18 02:46; Admin Dose 1 TAB; Start 10/14/18 at 20:00 Silver Sulfadiazine (Thermazene 1% 25 Gm) 1 applic Q12 TOP Last administered on 10/18/18at 20:30; Admin Dose 1 APPLIC; Start 10/14/18 at 21:00 Silver Sulfadiazine (Thermazene 1% 25 Gm) 1 applic NOTE PRN TOP NOTE; Start 10/14/18 at 20:00 Zolpidem Tartrate (Ambien) 5 mg HS PRN PO INSOMNIA; Start 10/14/18 at 20:00 Miscellaneous Information (Pending Santyl Order For Wound Care) This patient braun... PRN PRN XX WOUND CARE; Start 10/14/18 at 20:30 Diagnostic Test (Pha) (Accu-Chek) 1 ea AC MEALS AND BEDTIME XX Last administer ed on 10/18/18at 21:22; Admin Dose 1 EA; Start 10/15/18 at 11:30 Eye Lubricant (Artificial Tears Oph) 2 drop BID PRN BOTH EYES DRY EYES Last administered on 10/18/18at 20:33; Admin Dose 2 DROP; Start 10/15/18 at 11:00 Ondansetron HCl (Zofran Odt) 4 mg Q6H PRN ODT N/V Last administered on 10/17/18at 10:38; Admin Dose 4 MG; Start 10/15/18 at 13:30 Isosorbide Mononitrate (Imdur) 30 mg DAILY PO Last administered on 10/17/18at 09:16; Admin Dose 30 MG; Start 10/16/18 at 10:00 Insulin Aspart (Novolog Insulin Pen) NOVOLOG *MILD* ALGORITHM WITH MEALS BEDTIME SC Last administered on 10/18/18at 12:20; Admin Dose 2 UNIT; Start 10/16/18 at 21:15 Miscellaneous Information 1 ea NOTE XX ; Start 10/16/18 at 21:30 Glucose (Glutose) 15 gm Q15M PRN PO DECREASED GLUCOSE; Start 10/16/18 at 21:30 Glucose (Glutose) 22.5 gm Q15M PRN PO DECREASED GLUCOSE; Start 10/16/18 at 21:30 Dextrose (D50w Syringe) 25 ml Q15M PRN IV DECREASED GLUCOSE; Start 10/16/18 at 21:30 Dextrose (D50w Syringe) 50 ml Q15M PRN IV DECREASED GLUCOSE; Start 10/16/18 at 21:30 Glucagon (Glucagen) 1 mg Q15M PRN IM DECREASED GLUCOSE; Start 10/16/18 at 21:30 Glucose (Glutose) 15 gm Q15M PRN BUCCAL DECREASED GLUCOSE; Start 10/16/18 at 2 1:30 Tramadol HCl (Ultram) 50 mg Q6H PRN PO MODERATE PAIN LEVEL 4-6; Start 10/18/18 at 04:30 Carvedilol (Coreg) 12.5 mg BID PO Last administered on 10/18/18at 21:20; Admin Dose 12.5 MG; Start 10/18/18 at 21:00 Hydralazine HCl (Apresoline) 100 mg Q12 PO Last administered on 10/18/18at 21:22; Admin Dose 100 MG; Start 10/18/18 at 21:00 BETTYE CASTANON Oct 19, 2018 01:38
[2018-10-19 02:00] VITALS: BP 176/74; PULSE 73; RESP 18
[2018-10-19 07:00] VITALS: BP 152/55; PULSE 63; RESP 18
[2018-10-19] MEDS: INSULIN ASPART [NOVOLOG] 3 ML PEN SC SCH ×4 (07:35→21:00)
[2018-10-19] MEDS: ACCU-CHEK XX SCH ×4 (08:01→21:00)
[2018-10-19] MEDS: ISOSORBIDE MONONITRATE(SR)30 MG TAB PO SCH (09:00)
[2018-10-19] MEDS: AMIODARONE 200 MG TAB PO SCH ×2 (09:44→20:58)
[2018-10-19] MEDS: APIXABAN 5 MG TABLET PO SCH ×2 (09:45→20:59)
[2018-10-19] MEDS: ASPIRIN 81 MG TAB PO SCH (09:45)
[2018-10-19] MEDS: SILVER SULFADIAZINE 1% 25 GM CR TOP SCH ×3 (09:47→21:00)
[2018-10-19] MEDS: ARTIFICIAL TEARS 15 ML OPH BOTH EYES PRN (09:59)
[2018-10-19] MEDS: BISACODYL (EC) 5 MG TAB PO PRN (10:16)
[2018-10-19] MEDS ORDERED: NA POLYST SULFON 15 GM/60 ML BTL PO ONE (11:30)
--- NOTE | 2018-10-19 12:20 | PN ---
Date/Time of Note Date/Time of Note DATE: 10/19/18 TIME: 12:17 Assessment/Plan VTE Prophylaxis Risk score (from Ns)>0 risk: 5 SCD applied (from [facility]): No SCD contraindicated: patient refusal Pharmacological prophylaxis: heparin Lines/Catheters IV Catheter Type (from [facility] Saline Lock Assessment/Plan Problems: (1) Combined systolic and diastolic congestive heart failure, NYHA class 2 Status: Chronic Comment: We are having some issues controlling the medications as the patient's family is interfering actively with a consistent taking of the medications. I spoke with the patient's son and then with his daughter Abhishek also known as Dorcas. She has translated to him our desire and request to be able to consistently give her medications so we can balance this out both for blood pressure, heart failure, control of rhythm disturbance, and sugar. I have counseled her that this variability poses significant medical risk to the pat ient if they continue to intermittently stop us in our therapeutics Qualifiers: Congestive heart failure chronicity: chronic Qualified Codes: I50.42 - C hronic combined systolic (congestive) and diastolic (congestive) heart failure (2) Coronary artery disease Status: Chronic Comment: Fortunately quiescent Qualifiers: Coronary Disease-Associated Artery/Lesion type: [place] artery [place] vs. transplanted heart: [place] heart Associated angina: without angina Qualified Codes: I25.10 - Atherosclerotic heart disease of [place] coronary artery without angina pectoris (3) Paroxysmal atrial fibrillation Status: Chronic Comment: Presently in sinus rhythm (4) Essential hypertension Status: Chronic Comment: Control is variable due to intermittently not being able to get the medications due to the family (5) Hyperlipidemia associated with type 2 diabetes mellitus Status: Chronic Comment: Aggressive risk factor management (6) Diabetes mellitus type 2 in obese Status: Chronic Comment: Control is better at this time (7) Peripheral vascular disease due to secondary diabetes Status: Chronic Comment: Stable. (8) Chronic kidney disease, stage III (moderate) Status: Chronic Comment: Stable (9) Debility Status: Chronic Comment: Continue with acute rehabilitation protocol Result Diagram: 10/19/18 0735 10/19/18 0735 Results 24hrs Laboratory Tests Test 10/18/18 17:14 10/18/18 20:23 10/19/18 07:35 10/19/18 07:59 Bedside Glucose 154 137 145 White Blood Count 4.7 #L Red Blood Count 3.00 L Hemoglobin 9.5 L Hematocrit 29.8 L Mean Corpuscular 99.3 Volume Mean Corpuscular 31.7 Hemoglobin Mean Corpuscular 31.9 L Hemoglobin Concent Red Cell 13.1 Distribution Width Platelet Count 139 L Mean Platelet Volume 9.6 Immature 0.800 H Granulocytes % Neutrophils % 47.9 Lymphocytes % 38.9 Monocytes % 9.3 Eosinophils % 2.7 Basophils % 0.4 Nucleated Red Blood 0.0 Cells % Immature 0.040 H Granulocytes # Neutrophils # 2.3 Lymphocytes # 1.8 Monocytes # 0.4 Eosinophils # 0.1 Basophils # 0.0 Nucleated Red Blood 0.0 Cells # Sodium Level 139 Potassium Level 5.4 H Chloride Level 103 Carbon Dioxide Level 27 Anion Gap 9 Blood Urea Nitrogen 32 H Creatinine 1.51 H Est Glomerular Filtrat Rate mL/min Glucose Level 129 Calcium Level 9.0 Total Bilirubin 0.3 Direct Bilirubin 0.00 Indirect Bilirubin 0.3 Aspartate Amino 29 Transf (AST/SGOT) Alanine 16 Aminotransferase (AL T/SGPT) Alkaline Phosphatase 68 Total Protein 6.7 Albumin 3.1 L Globulin 3.60 H Albumin/Globulin 0.86 Ratio Subjective 24 Hr Interval Summary Free Text/Dictation Patient is without specific complaints at this time Constitutional: no complaints Respiratory: no complaints Cardiovascular: no complaints Exam/Review of Systems Exam Vitals Vital Signs Date Temp Pulse Resp B/P (MAP) Pulse Ox O2 O2 Flow FiO2 Time Delivery Rate 10/19/18 97.8 63 18 152/55 100 Room Air 07:00 (87) Intake and Output 10/18/18 10/18/18 10/19/18 1515:00 23:00 07:00 IntakeIntake Total 120 ml 640 ml 220 ml OutputOutput Total 150 ml BalanceBalance 120 ml 490 ml 220 ml Constitutional: alert Respiratory: clear to auscultation, normal air movement Cardiovascular: nl pulses Gastrointestinal: soft, nl liver, spleen, non-tender Results Results 24hrs Laboratory Tests Test 10/18/18 17:14 10/18/18 20:23 10/19/18 07:35 10/19/18 07:59 Bedside Glucose 154 137 145 White Blood Count 4.7 #L Red Blood Count 3.00 L Hemoglobin 9.5 L Hematocrit 29.8 L Mean Corpuscular 99.3 Volume Mean Corpuscular 31.7 Hemoglobin Mean Corpuscular 31.9 L Hemoglobin Concent Red Cell 13.1 Distribution Width Platelet Count 139 L Mean Platelet Volume 9.6 Immature 0.800 H Granulocytes % Neutrophils % 47.9 Lymphocytes % 38.9 Monocytes % 9.3 Eosinophils % 2.7 Basophils % 0.4 Nucleated Red Blood 0.0 Cells % Immature 0.040 H Granulocytes # Neutrophils # 2.3 Lymphocytes # 1.8 Monocytes # 0.4 Eosinophils # 0.1 Basophils # 0.0 Nucleated Red Blood 0.0 Cells # Sodium Level 139 Potassium Level 5.4 H Chloride Level 103 Carbon Dioxide Level 27 Anion Gap 9 Blood Urea Nitrogen 32 H Creatinine 1.51 H Est Glomerular Filtrat Rate mL/min Glucose Level 129 Calcium Level 9.0 Total Bilirubin 0.3 Direct Bilirubin 0.00 Indirect Bilirubin 0.3 Aspartate Amino 29 Transf (AST/SGOT) Alanine 16 Aminotransferase (AL T/SGPT) Alkaline Phosphatase 68 Total Protein 6.7 Albumin 3.1 L Globulin 3.60 H Albumin/Globulin 0.86 Ratio Medications Medication Current Medications Acetaminophen (Tylenol Tab) 650 mg Q6H PRN PO MILD PAIN(1-3)OR ELEVATED TEMP; Start 10/14/18 at 20:00 Albuterol/ Ipratropium (Duoneb) 3 ml Q2H RESP THERAPY PRN HHN SHORTNESS OF BREATH; Start 10/14/18 at 20:00 Amiodarone HCl (Cordarone) 200 mg BID PO Last administered on 10/19/18 09:44; Admin Dose 200 MG; Start 10/14/18 at 21:00 Apixaban (Eliquis) 2.5 mg BID PO Last administered on 10/19/18 09:45; Admin Dose 2.5 MG; Start 10/14/18 at 21:00 Aspirin (Aspirin) 81 mg DAILY PO Last administered on 10/19/18 09:45; Admin Dose 81 MG; Start 10/15/18 at 09:00 Atorvastatin Calcium (Lipitor) 80 mg HS PO Last administered on 10/18/18 20:24; Admin Dose 80 MG; Start 10/14/18 at 21:00 Bisacodyl (Dulcolax) 10 mg DAILY PRN PO CONSTIPATION Last administered on 10/19/18 10:16; Admin Dose 10 MG; Start 10/14/18 at 20:00 Docusate Sodium (Colace) 100 mg Q12 PRN PO CONSTIPATION; Start 10/14/18 at 20:00 Nitroglycerin (Nitroglycerin (Sl Tab) 0.4 Mg) 1 tab Q5M PRN SL ANGINA Last administered on 10/18/18 02:46; Admin Dose 1 TAB; Start 10/14/18 at 20:00 Silver Sulfadiazine (Thermazene 1% 25 Gm) 1 applic Q12 TOP Last administered on 10/18/18 20:30; Admin Dose 1 APPLIC; Start 10/14/18 at 21:00 Silver Sulfadiazine (Thermazene 1% 25 Gm) 1 applic NOTE PRN TOP NOTE; Start 10/14/18 at 20:00 Zolpidem Tartrate (Ambien) 5 mg HS PRN PO INSOMNIA; Start 10/14/18 at 20:00 Miscellaneous Information (Pending [facility] Order For Wound Care) This patient braun... PRN PRN XX WOUND CARE; Start 10/14/18 at 20:30 Diagnostic Test (Pha) (Accu-Chek) 1 ea AC MEALS AND BEDTIME XX Last administered on 10/19/18 08:01; Admin Dose 1 EA; Start 10/15/18 at 11:30 Eye Lubricant (Artificial Tears Oph) 2 drop BID PRN BOTH EYES DRY EYES Last administered on 10/19/18 09:59; Admin Dose 2 DROP; Start 10/15/18 at 11:00 Ondansetron HCl (Zofran Odt) 4 mg Q6H PRN ODT N/V Last administered on 10/17/18 10:38; Admin Dose 4 MG; Start 10/15/18 at 13:30 Isosorbide Mononitrate (Imdur) 30 mg DAILY PO Last administered on 10/17/18at 0 9:16; Admin Dose 30 MG; Start 10/16/18 at 10:00 Insulin Aspart (Novolog Insulin Pen) NOVOLOG *MILD* ALGORITHM WITH MEALS BEDTIME SC Last administered on 10/18/18 12:20; Admin Dose 2 UNIT; Start at 21:15 Miscellaneous Information 1 ea NOTE XX ; Start 10/16/18 at 21:30 Glucose (Glutose) 15 gm Q15M PRN PO DECREASED GLUCOSE; Start 10/16/18 at 21:30 Glucose (Glutose) 22.5 gm Q15M PRN PO DECREASED GLUCOSE; Start 10/16/18 at 21:30 Dextrose (D50w Syringe) 25 ml Q15M PRN IV DECREASED GLUCOSE; Start 10/16/18 at 21:30 Dextrose (D50w Syringe) 50 ml Q15M PRN IV DECREASED GLUCOSE; Start 10/16/18 at 21:30 Glucagon (Glucagen) 1 mg Q15M PRN IM DECREASED GLUCOSE; Start 10/16/18 at 21:30 Glucose (Glutose) 15 gm Q15M PRN BUCCAL DECREASED GLUCOSE; Start 10/16/18 at 21:30 Tramadol HCl (Ultram) 50 mg Q6H PRN PO MODERATE PAIN LEVEL 4-6; Start 10/18/18 at 04:30 Carvedilol (Coreg) 12.5 mg BID PO Last administered on 10/19/18at 09:43; Admin Dose 12.5 MG; Start 10/18/18 at 21:00 Hydralazine HCl (Apresoline) 100 mg Q12 PO Last administered on 10/18/18at 21:22; Admin Dose 100 MG; Start 10/18/18 at 21:00 HELEN AGUILERA MD Oct 19, 2018 12:20
[2018-10-19 14:00] VITALS: BP 115/56; PULSE 61; RESP 18
--- NOTE | 2018-10-19 16:26 | RADRPT ---
Vent Rate: 75 bpm RR Interval: 0 msec VA Interval: 242 msec QRS Duration: 130 msec QT Interval: 424 msec QTC Interval: 473 msec P-R-T [place]: 66 - -10 - 179 degrees Sinus rhythm with 1st degree AV block Nonspecific intraventricular block Cannot rule out Anterior infarct , age undetermined T wave abnormality, consider inferolateral ischemia Abnormal ECG Electronically Signed By: Osorio Cunningham
--- NOTE | 2018-10-19 16:29 | RADRPT ---
Vent Rate: 78 bpm RR Interval: 0 msec DC Interval: 250 msec QRS Duration: 132 msec QT Interval: 422 msec QTC Interval: 481 msec P-R-T [place]: 59 - -5 - 161 degrees Sinus rhythm with 1st degree AV block Nonspecific intraventricular block Cannot rule out Anterior infarct , age undetermined Abnormal ECG Electronically Signed By: Osorio Cunningham
[2018-10-19 20:00] VITALS: BP 172/70; PULSE 74; RESP 18
[2018-10-19] MEDS: ATORVASTATIN 80 MG TAB PO SCH (20:56)
[2018-10-19] MEDS: ONDANSETRON (ODT) 4 MG TAB ODT PRN (21:22)
--- NOTE | 2018-10-19 23:32 | CONS ---
Assessment/Plan Assessment/Plan Assessment/Plan (Daily) 1, acute hyperkalemia- -K 5.4- Kayexalate 15 gm po x1- fu am BMP 2. STANLEY on CKD III 3. H./o CKD III due to CHF and HTN 4. Cardiomyopathy with EF 30-35% 5. h/o CAD three vessel, pt declined CABG 6.H/o Atrila firbillation 7. H/o HTN 8. H/O HL 9. H/o PAD 10. Anemia of chronic disease Plan: BUN/Cr - 32/1.51; Continue current meds, ASA< Lipitor Amiodraone for rate control, eliquis for anticoagulation for atrial fibrillation will follow up Patient seen in collaboration with Dr Clare Yousif Consultation Date/Type/Reason Admit Date/Time Oct 14, 2018 at 18:35 Initial Consult Date 10/15/18 Type of Consult nephrology Requesting Provider: ALEN FLORES MD, [facility] Date/Time of Note DATE: 10/19/18 TIME: 23:32 24 HR Interval Summary Free Text/Dictation nad- K 5.4- Kayexalate 15 gm po x1- fu am BMP seems comfortable in bed afebrile family at bed side- all Qs answered no new events reported overnight per staff Constitutional: requiring O2 Detailed Summary Eyes: no complaints ENT: no complaints Respiratory: no complaints Cardiovascular: no complaints Gastrointestinal: no complaints Genitourinary: no complaints Musculoskeletal: no complaints Skin: no complaints Exam/Review of Systems Exam Vitals Vital Signs Date Temp Pulse Resp B/P (MAP) Pulse Ox O2 O2 Flow FiO2 Time Delivery Rate 10/19/18 97.8 74 18 172/70 95 Room Air 20:00 (104) Intake and Output 10/18/18 10/18/18 10/19/18 1515:00 23:00 07:00 IntakeIntake Total 120 ml 640 ml 220 ml OutputOutput Total 150 ml BalanceBalance 120 ml 490 ml 220 ml Constitutional: alert, well developed Psych: nl mood/affect Head: atraumatic Eyes: nl lids, nl sclera ENMT: nl external ears & nose Neck: non-tender Respiratory: clear to auscultation Cardiovascular: nl pulses, other (s1s2) Gastrointestinal: soft, non-tender Musculoskeletal: nl extremities to inspection Extremities: normal pulses Neurological: nl speech Lymph: nontender Results Result Diagram: 10/19/18 0735 10/19/18 0735 Results 24hrs Laboratory Tests Test 10/19/18 07:35 10/19/18 07:59 10/19/18 12:18 10/19/18 17:53 White Blood Count 4.7 #L Red Blood Count 3.00 L Hemoglobin 9.5 L Hematocrit 29.8 L Mean Corpuscular 99.3 Volume Mean Corpuscular 31.7 Hemoglobin Mean Corpuscular 31.9 L Hemoglobin Concent Red Cell 13.1 Distribution Width Platelet Count 139 L Mean Platelet Volume 9.6 Immature 0.800 H Granulocytes % Neutrophils % 47.9 Lymphocytes % 38.9 Monocytes % 9.3 Eosinophils % 2.7 Basophils % 0.4 Nucleated Red Blood 0.0 Cells % Immature 0.040 H Granulocytes # Neutrophils # 2.3 Lymphocytes # 1.8 Monocytes # 0.4 Eosinophils # 0.1 Basophils # 0.0 Nucleated Red Blood 0.0 Cells # Sodium Level 139 Potassium Level 5.4 H Chloride Level 103 Carbon Dioxide Level 27 Anion Gap 9 Blood Urea Nitrogen 32 H Creatinine 1.51 H Est Glomerular Filtrat Rate mL/min Glucose Level 129 Calcium Level 9.0 Total Bilirubin 0.3 Direct Bilirubin 0.00 Indirect Bilirubin 0.3 Aspartate Amino 29 Transf (AST/SGOT) Alanine 16 Aminotransferase (AL T/SGPT) Alkaline Phosphatase 68 Total Protein 6.7 Albumin 3.1 L Globulin 3.60 H Albumin/Globulin 0.86 Ratio Bedside Glucose 145 220 159 Test 10/19/18 20:29 Bedside Glucose 167 Medications Medication Current Medications Acetaminophen (Tylenol Tab) 650 mg Q6H PRN PO MILD PAIN(1-3)OR ELEVATED TEMP; Start 10/14/18 at 20:00 Albuterol/ Ipratropium (Duoneb) 3 ml Q2H RESP THERAPY PRN HHN SHORTNESS OF BREATH; Start 10/14/18 at 20:00 Amiodarone HCl (Cordarone) 200 mg BID PO Last administered on 10/19/18at 20:58; Admin Dose 200 MG; Start 10/14/18 at 21:00 Apixaban (Eliquis) 2.5 mg BID PO Last administered on 10/19/18at 20:59; Admin Dose 2.5 MG; Start 10/14/18 at 21:00 Aspirin (Aspirin) 81 mg DAILY PO Last administered on 10/19/18 09:45; Admin Dose 81 MG; Start 10/15/18 at 09:00 Atorvastatin Calcium (Lipitor) 80 mg HS PO Last administered on 10/19/18 20:56; Admin Dose 80 MG; Start 10/14/18 at 21:00 Bisacodyl (Dulcolax) 10 mg DAILY PRN PO CONSTIPATION Last administered on 10/19/18 10:16; Admin Dose 10 MG; Start 10/14/18 at 20:00 Docusate Sodium (Colace) 100 mg Q12 PRN PO CONSTIPATION; Start 10/14/18 at 20:00 Nitroglycerin (Nitroglycerin (Sl Tab) 0.4 Mg) 1 tab Q5M PRN SL ANGINA Last administered on 10/18/18 02:46; Admin Dose 1 TAB; Start 10/14/18 at 20:00 Silver Sulfadiazine (Thermazene 1% 25 Gm) 1 applic Q12 TOP Last administered on 10/19/18 14:16; Admin Dose 1 APPLIC; Start 10/14/18 at 21:00 Silver Sulfadiazine (Thermazene 1% 25 Gm) 1 applic NOTE PRN TOP NOTE; Start 10/14/18 at 20:00 Zolpidem Tartrate (Ambien) 5 mg HS PRN PO INSOMNIA; Start 10/14/18 at 20:00 Miscellaneous Information (Pending [facility] Order For Wound Care) This patient braun... PRN PRN XX WOUND CARE; Start 10/14/18 at 20:30 Diagnostic Test (Pha) (Accu-Chek) 1 ea AC MEALS AND BEDTIME XX Last administered on 10/19/18 21:00; Admin Dose 1 EA; Start 10/15/18 at 11:30 Eye Lubricant (Artificial Tears Oph) 2 drop BID PRN BOTH EYES DRY EYES Last administered on 10/19/18 09:59; Admin Dose 2 DROP; Start 10/15/18 at 11:00 Ondansetron HCl (Zofran Odt) 4 mg Q6H PRN ODT N/V Last administered on 10/19/18 21:22; Admin Dose 4 MG; Start 10/15/18 at 13:30 Isosorbide Mononitrate (Imdur) 30 mg DAILY PO Last administered on 10/17/18at 09:16; Admin Dose 30 MG; Start 10/16/18 at 10:00 Insulin Aspart (Novolog Insulin Pen) NOVOLOG *MILD* ALGORITHM WITH MEALS BEDTIME SC Last administered on 10/19/18at 17:59; Admin Dose 1 UNIT; Start 10/16/18 at 21:15 Miscellaneous Information 1 ea NOTE XX ; Start 10/16/18 at 21:30 Glucose (Glutose) 15 gm Q15M PRN PO DECREASED GLUCOSE; Start 10/16/18 at 21:30 Glucose (Glutose) 22.5 gm Q15M PRN PO DECREASED GLUCOSE; Start 10/16/18 at 21:30 Dextrose (D50w Syringe) 25 ml Q15M PRN IV DECREASED GLUCOSE; Start 10/16/18 at 21:30 Dextrose (D50w Syringe) 50 ml Q15M PRN IV DECREASED GLUCOSE; Start 10/16/18 at 21:30 Glucagon (Glucagen) 1 mg Q15M PRN IM DECREASED GLUCOSE; Start 10/16/18 at 21:30 Glucose (Glutose) 15 gm Q15M PRN BUCCAL DECREASED GLUCOSE; Start 10/16/18 at 21:30 Tramadol HCl (Ultram) 50 mg Q6H PRN PO MODERATE PAIN LEVEL 4-6; Start 10/18/18 at 04:30 Carvedilol (Coreg) 12.5 mg BID PO Last administered on 10/19/18at 20:59; Admin Dose 12.5 MG; Start 10/18/18 at 21:00 Hydralazine HCl (Apresoline) 100 mg Q12 PO Last administered on 10/19/18at 21:00; Admin Dose 100 MG; Start 10/18/18 at 21:00 BETTYE CASTANON Oct 19, 2018 23:32
[2018-10-20] VITALS (17 sets, daily range): BP systolic 104–173; BP diastolic 45–89; PULSE 70–95; RESP 18–20
[2018-10-20] MEDS: ACCU-CHEK XX SCH ×4 (07:05→21:18)
[2018-10-20] MEDS: INSULIN ASPART [NOVOLOG] 3 ML PEN SC SCH ×4 (07:35→21:00)
[2018-10-20] MEDS: ONDANSETRON (ODT) 4 MG TAB ODT PRN (08:15)
[2018-10-20] MEDS: ASPIRIN 81 MG TAB PO SCH ×2 (09:00→16:40)
[2018-10-20] MEDS: APIXABAN 5 MG TABLET PO SCH ×3 (09:00→20:55)
[2018-10-20] MEDS: ISOSORBIDE MONONITRATE(SR)30 MG TAB PO SCH (09:00)
[2018-10-20] MEDS: SILVER SULFADIAZINE 1% 25 GM CR TOP SCH ×2 (09:00→20:56)
--- NOTE | 2018-10-20 09:03 | PN ---
Date/Time of Note Date/Time of Note DATE: 10/20/18 TIME: 09:02 Assessment/Plan VTE Prophylaxis Risk score (from Ns)>0 risk: 5 SCD applied (from [facility]): No SCD contraindicated: other Pharmacological prophylaxis: apixaban Lines/Catheters IV Catheter Type (from [facility]): Saline Lock Assessment/Plan Hospital Course SUBJECTIVE: no acute distress. Has been refusing BP meds OBJECTIVE: Vital signs-see below PHYSICAL EXAM: Constitutional: Well-developed, adequately built, lying in bed comfortably. Psych: nl mood/affect, no complaints Head: atraumatic, normocephalic Eyes: nl conjunctiva, nl sclera ENMT: mucosa pink and moist, nl external ears & nose Neck: non-tender, supple Respiratory: clear to auscultation, normal air movement Cardiovascular: Irregular rate and rhythm Gastrointestinal: non-tender, soft, bowel sounds active in all 4 quadrants. Musculoskeletal/extremities: nl extremities to inspection, motor strength equal bilaterally, no focal deficit. Normal pulses,no cyanosis, no edema. Neurological: Alert oriented 3,nl speech, nl strength Skin: nl turgor ASSESSMENT/PLAN: 82-year-old female with NSTEMI, triple-vessel coronary artery disease who declined coronary artery bypass grafting,htn,dyslipidemia,afib,dm, transferred from [place] for physical therapy. 1. Debility -Continue rehab 2. Triple-vessel coronary artery disease -Patient declined bypass grafting. At this time continue conservative medical management with Aspirin, Coreg, statin. Aldactone held secondary to hyperkalemia. 3. Atrial fibrillation -Currently rate controlled. -on amiodarone,BB and anticoagulate with Eliquis. 4. Congestive heart failure/cardiomyopathy with last known ejection fraction 30- 35%. -Clinically stable. -Continue beta-blockers. Not a candidate for Aldactone. -Follow-up cardiology recommendations 5. Hypertension -not adequately controlled secondary to patient refusing antihypertensives. -monitor 6. Dyslipidemia -Continue statin 7.DMII -w/hyperglycemia-refuses insulin-DM education ordered -Continue Accu-Cheks/ISS 8. Acute kidney injury on CKD stage III -Creat not much fluctuation -Monitor renal function. -f/u nephro recs 9. Anemia of chronic disease. -Stable H&H. Continue to monitor. 10. Peripheral vascular disease w subclavian stenosis -Continue antiplatelets. DVT prophylaxis: Hakeem Patient was seen in collaboration with . Result Diagram: 10/20/18 0651 10/20/18 0651 Results 24hrs Laboratory Tests Test 10/19/18 12:18 10/19/18 17:53 10/19/18 20:29 10/20/18 06:51 Bedside Glucose 220 159 167 White Blood Count 8.0 # Red Blood Count 3.14 L Hemoglobin 9.7 L Hematocrit 31.1 L Mean Corpuscular 99.0 Volume Mean Corpuscular 30.9 Hemoglobin Mean Corpuscular 31.2 L Hemoglobin Concent Red Cell 13.1 Distribution Width Platelet Count 173 # Mean Platelet Volume 8.7 Immature 0.400 Granulocytes % Neutrophils % 62.3 Lymphocytes % 27.6 Monocytes % 7.6 Eosinophils % 1.9 Basophils % 0.2 Nucleated Red Blood 0.0 Cells % Immature 0.030 Granulocytes # Neutrophils # 5.0 Lymphocytes # 2.2 Monocytes # 0.6 Eosinophils # 0.2 Basophils # 0.0 Nucleated Red Blood 0.0 Cells # Sodium Level 139 Potassium Level 4.8 Chloride Level 107 Carbon Dioxide Level 24 Anion Gap 8 Blood Urea Nitrogen 29 H Creatinine 1.25 H Est Glomerular Filtrat Rate mL/min Glucose Level 163 Calcium Level 8.8 Test 10/20/18 08:08 Bedside Glucose 136 Exam/Review of Systems Exam Vitals Vital Signs Date Temp Pulse Resp B/P (MAP) Pulse Ox O2 O2 Flow FiO2 Time Delivery Rate 10/20/18 97.9 70 18 163/86 96 Room Air 02:00 (111) Intake and Output 10/19/18 10/19/18 10/20/18 1515:00 23:00 07:00 IntakeIntake Total 900 ml OutputOutput Total 150 ml BalanceBalance 900 ml -150 ml Results Results 24hrs Laboratory Tests Test 10/19/18 12:18 10/19/18 17:53 10/19/18 20:29 10/20/18 06:51 Bedside Glucose 220 159 167 White Blood Count 8.0 # Red Blood Count 3.14 L Hemoglobin 9.7 L Hematocrit 31.1 L Mean Corpuscular 99.0 Volume Mean Corpuscular 30.9 Hemoglobin Mean Corpuscular 31.2 L Hemoglobin Concent Red Cell 13.1 Distribution Width Platelet Count 173 # Mean Platelet Volume 8.7 Immature 0.400 Granulocytes % Neutrophils % 62.3 Lymphocytes % 27.6 Monocytes % 7.6 Eosinophils % 1.9 Basophils % 0.2 Nucleated Red Blood 0.0 Cells % Immature 0.030 Granulocytes # Neutrophils # 5.0 Lymphocytes # 2.2 Monocytes # 0.6 Eosinophils # 0.2 Basophils # 0.0 Nucleated Red Blood 0.0 Cells # Sodium Level 139 Potassium Level 4.8 Chloride Level 107 Carbon Dioxide Level 24 Anion Gap 8 Blood Urea Nitrogen 29 H Creatinine 1.25 H Est Glomerular Filtrat Rate mL/min Glucose Level 163 Calcium Level 8.8 Test 10/20/18 08:08 Bedside Glucose 136 Medications Medication Current Medications Acetaminophen (Tylenol Tab) 650 mg Q6H PRN PO MILD PAIN(1-3)OR ELEVATED TEMP; Start 10/14/18 at 20:00 Albuterol/ Ipratropium (Duoneb) 3 ml Q2H RESP THERAPY PRN HHN SHORTNESS OF BREATH; Start 10/14/18 at 20:00 Amiodarone HCl (Cordarone) 200 mg BID PO Last administered on 10/19/18 20:58; Admin Dose 200 MG; Start 10/14/18 at 21:00 Apixaban (Eliquis) 2.5 mg BID PO Last administered on 10/19/18 20:59; Admin Dose 2.5 MG; Start 10/14/18 at 21:00 Aspirin (Aspirin) 81 mg DAILY PO Last administered on 10/19/18 09:45; Admin Dose 81 MG; Start 10/15/18 at 09:00 Atorvastatin Calcium (Lipitor) 80 mg HS PO Last administered on 10/19/18 20:56; Admin Dose 80 MG; Start 10/14/18 at 21:00 Bisacodyl (Dulcolax) 10 mg DAILY PRN PO CONSTIPATION Last administered on 10/19/18 10:16; Admin Dose 10 MG; Start 10/14/18 at 20:00 Docusate Sodium (Colace) 100 mg Q12 PRN PO CONSTIPATION; Start 10/14/18 at 20:00 Nitroglycerin (Nitroglycerin (Sl Tab) 0.4 Mg) 1 tab Q5M PRN SL ANGINA Last administered on 10/18/18 02:46; Admin Dose 1 TAB; Start 10/14/18 at 20:00 Silver Sulfadiazine (Thermazene 1% 25 Gm) 1 applic Q12 TOP Last administered on 10/19/18 14:16; Admin Dose 1 APPLIC; Start 10/14/18 at 21:00 Silver Sulfadiazine (Thermazene 1% 25 Gm) 1 applic NOTE PRN TOP NOTE; Start 10/14/18 at 20:00 Zolpidem Tartrate (Ambien) 5 mg HS PRN PO INSOMNIA; Start 10/14/18 at 20:00 Miscellaneous Information (Pending [facility] Order For Wound Care) This patient braun... PRN PRN XX WOUND CARE; Start 10/14/18 at 20:30 Diagnostic Test (Pha) (Accu-Chek) 1 ea AC MEALS AND BEDTIME XX Last administered on 10/20/18 07:05; Admin Dose 1 EA; Start 10/15/18 at 11:30 Eye Lubricant (Artificial Tears Oph) 2 drop BID PRN BOTH EYES DRY EYES Last administered on 10/19/18 09:59; Admin Dose 2 DROP; Start 10/15/18 at 11:00 Ondansetron HCl (Zofran Odt) 4 mg Q6H PRN ODT N/V Last administered on 10/20/18 08:15; Admin Dose 4 MG; Start 10/15/18 at 13:30 Isosorbide Mononitrate (Imdur) 30 mg DAILY PO Last administered on 10/17/18 09:16; Admin Dose 30 MG; Start 10/16/18 at 10:00 Insulin Aspart (Novolog Insulin Pen) NOVOLOG *MILD* ALGORITHM WITH MEALS BED TIME SC Last administered on 10/19/18 17:59; Admin Dose 1 UNIT; Start 10/16/18 at 21:15 Miscellaneous Information 1 ea NOTE XX ; Start 10/16/18 at 21:30 Glucose (Glutose) 15 gm Q15M PRN PO DECREASED GLUCOSE; Start 10/16/18 at 21:30 Glucose (Glutose) 22.5 gm Q15M PRN PO DECREASED GLUCOSE; Start 10/16/18 at 21:30 Dextrose (D50w Syringe) 25 ml Q15M PRN IV DECREASED GLUCOSE; Start 10/16/18 at 21:30 Dextrose (D50w Syringe) 50 ml Q15M PRN IV DECREASED GLUCOSE; Start 10/16/18 at 21:30 Glucagon (Glucagen) 1 mg Q15M PRN IM DECREASED GLUCOSE; Start 10/16/18 at 21:30 Glucose (Glutose) 15 gm Q15M PRN BUCCAL DECREASED GLUCOSE; Start 10/16/18 at 21:30 Tramadol HCl (Ultram) 50 mg Q6H PRN PO MODERATE PAIN LEVEL 4-6; Start 10/18/18 at 04:30 Carvedilol (Coreg) 12.5 mg BID PO Last administered on 10/19/18at 20:59; Admin Dose 12.5 MG; Start 10/18/18 at 21:00 Hydralazine HCl (Apresoline) 100 mg Q12 PO Last administered on 10/19/18at 21:00; Admin Dose 100 MG; Start 10/18/18 at 21:00 BRIANA PABLO NP Oct 20, 2018 09:03
[2018-10-20] MEDS: ACETAMINOPHEN 325 MG TAB PO PRN ×2 (11:31→11:38)
[2018-10-20] MEDS: AMIODARONE 200 MG TAB PO SCH ×2 (11:35→21:49)
--- NOTE | 2018-10-20 11:54 | CONS ---
Assessment/Plan Assessment/Plan Assessment/Plan (Daily) 1, acute hyperkalemia- -resolved 2. STANLEY on CKD III 3. H./o CKD III due to CHF and HTN 4. Cardiomyopathy with EF 30-35% 5. h/o CAD three vessel, pt declined CABG 6.H/o Atrila firbillation 7. H/o HTN 8. H/O HL 9. H/o PAD 10. Anemia of chronic disease Plan: BUN/Cr improved to 29/1.25, BP stable Continue current meds, ASA< Lipitor Amiodraone for rate control, eliquis for anticoagulation for atrial fibrillation will follow up Consultation Date/Type/Reason Admit Date/Time Oct 14, 2018 at 18:35 Initial Consult Date 10/15/18 Type of Consult NEPHROLOGY Requesting Provider: ALEN FLORES MD, [facility] Date/Time of Note DATE: 10/20/18 TIME: 11:54 Exam/Review of Systems Exam Vitals Vital Signs Date Temp Pulse Resp B/P (MAP) Pulse Ox O2 O2 Flow FiO2 Time Delivery Rate 10/20/18 98.2 11:31 10/20/18 89 173/76 11:30 (108) 10/20/18 20 98 Room Air 07:30 Intake and Output 10/19/18 10/19/18 10/20/18 1515:00 23:00 07:00 IntakeIntake Total 900 ml OutputOutput Total 150 ml BalanceBalance 900 ml -150 ml Exam Constitutional: alert, well developed Respiratory: clear to auscultation Cardiovascular: nl pulses, other (s1s2) Gastrointestinal: soft, non-tender Musculoskeletal: muscle weakness Extremities: normal pulses Neurological: nl speech, other (alert/responsive) Results Result Diagram: 10/20/18 0651 10/20/18 0651 Results 24hrs Laboratory Tests Test 10/19/18 12:18 10/19/18 17:53 10/19/18 20:29 10/20/18 06:51 Bedside Glucose 220 159 167 White Blood Count 8.0 # Red Blood Count 3.14 L Hemoglobin 9.7 L Hematocrit 31.1 L Mean Corpuscular 99.0 Volume Mean Corpuscular 30.9 Hemoglobin Mean Corpuscular 31.2 L Hemoglobin Concent Red Cell 13.1 Distribution Width Platelet Count 173 # Mean Platelet Volume 8.7 Immature 0.400 Granulocytes % Neutrophils % 62.3 Lymphocytes % 27.6 Monocytes % 7.6 Eosinophils % 1.9 Basophils % 0.2 Nucleated Red Blood 0.0 Cells % Immature 0.030 Granulocytes # Neutrophils # 5.0 Lymphocytes # 2.2 Monocytes # 0.6 Eosinophils # 0.2 Basophils # 0.0 Nucleated Red Blood 0.0 Cells # Sodium Level 139 Potassium Level 4.8 Chloride Level 107 Carbon Dioxide Level 24 Anion Gap 8 Blood Urea Nitrogen 29 H Creatinine 1.25 H Est Glomerular Filtrat Rate mL/min Glucose Level 163 Calcium Level 8.8 Test 10/20/18 08:08 Bedside Glucose 136 Medications Medication Current Medications Acetaminophen (Tylenol Tab) 650 mg Q6H PRN PO MILD PAIN(1-3)OR ELEVATED TEMP Last administered on 10/20/18 11:38; Admin Dose 650 MG; Start 10/14/18 at 20:00 Albuterol/ Ipratropium (Duoneb) 3 ml Q2H RESP THERAPY PRN HHN SHORTNESS OF BREATH; Start 10/14/18 at 20:00 Amiodarone HCl (Cordarone) 200 mg BID PO Last administered on 10/20/18 11:35; Admin Dose 200 MG; Start 10/14/18 at 21:00 Apixaban (Eliquis) 2.5 mg BID PO Last administered on 10/19/18 20:59; Admin Dose 2.5 MG; Start 10/14/18 at 21:00 Aspirin (Aspirin) 81 mg DAILY PO Last administered on 10/19/18 09:45; Admin Dose 81 MG; Start 10/15/18 at 09:00 Atorvastatin Calcium (Lipitor) 80 mg HS PO Last administered on 10/19/18 20:56; Admin Dose 80 MG; Start 10/14/18 at 21:00 Bisacodyl (Dulcolax) 10 mg DAILY PRN PO CONSTIPATION Last administered on 10/19/18 10:16; Admin Dose 10 MG; Start 10/14/18 at 20:00 Docusate Sodium (Colace) 100 mg Q12 PRN PO CONSTIPATION; Start 10/14/18 at 20:00 Nitroglycerin (Nitroglycerin (Sl Tab) 0.4 Mg) 1 tab Q5M PRN SL ANGINA Last administered on 10/18/18 02:46; Admin Dose 1 TAB; Start 10/14/18 at 20:00 Silver Sulfadiazine (Thermazene 1% 25 Gm) 1 applic Q12 TOP Last administered on 10/19/18at 14:16; Admin Dose 1 APPLIC; Start 10/14/18 at 21:00 Silver Sulfadiazine (Thermazene 1% 25 Gm) 1 applic NOTE PRN TOP NOTE; Start 10/14/18 at 20:00 Zolpidem Tartrate (Ambien) 5 mg HS PRN PO INSOMNIA; Start 10/14/18 at 20:00 Miscellaneous Information (Pending [facility] Order For Wound Care) This patient braun... PRN PRN XX WOUND CARE; Start 10/14/18 at 20:30 Diagnostic Test (Pha) (Accu-Chek) 1 ea AC MEALS AND BEDTIME XX Last administered on 10/20/18 07:05; Admin Dose 1 EA; Start 10/15/18 at 11:30 Eye Lubricant (Artificial Tears Oph) 2 drop BID PRN BOTH EYES DRY EYES Last administered on 10/19/18 09:59; Admin Dose 2 DROP; Start 10/15/18 at 11:00 Ondansetron HCl (Zofran Odt) 4 mg Q6H PRN ODT N/V Last administered on 10/20/18 08:15; Admin Dose 4 MG; Start 10/15/18 at 13:30 Isosorbide Mononitrate (Imdur) 30 mg DAILY PO Last administered on 10/17/18 09:16; Admin Dose 30 MG; Start 10/16/18 at 10:00 Insulin Aspart (Novolog Insulin Pen) NOVOLOG *MILD* ALGORITHM WITH MEALS BEDTIME SC Last administered on 10/19/18 17:59; Admin Dose 1 UNIT; Start 10/16/18 at 21:15 Miscellaneous Information 1 ea NOTE XX ; Start 10/16/18 at 21:30 Glucose (Glutose) 15 gm Q15M PRN PO DECREASED GLUCOSE; Start 10/16/18 at 21:30 Glucose (Glutose) 22.5 gm Q15M PRN PO DECREASED GLUCOSE; Start 10/16/18 at 21:30 Dextrose (D50w Syringe) 25 ml Q15M PRN IV DECREASED GLUCOSE; Start 10/16/18 at 21:30 Dextrose (D50w Syringe) 50 ml Q15M PRN IV DECREASED GLUCOSE; Start 10/16/18 at 21:30 Glucagon (Glucagen) 1 mg Q15M PRN IM DECREASED GLUCOSE; Start 10/16/18 at 21:30 Glucose (Glutose) 15 gm Q15M PRN BUCCAL DECREASED GLUCOSE; Start 10/16/18 at 21:30 Tramadol HCl (Ultram) 50 mg Q6H PRN PO MODERATE PAIN LEVEL 4-6; Start 10/18/18 at 04:30 Carvedilol (Coreg) 12.5 mg BID PO Last administered on 10/20/18at 11:37; Admin Dose 12.5 MG; Start 10/18/18 at 21:00 Hydralazine HCl (Apresoline) 100 mg Q12 PO Last administered on 10/20/18at 11:34; Admin Dose 100 MG; Start 10/18/18 at 21:00 BEKA HARPER MD Oct 20, 2018 11:54
[2018-10-20] MEDS: NITROGLYCERIN (SL) 0.4 MG TAB SL PRN ×2 (13:06→19:30)
--- NOTE | 2018-10-20 13:29 | PN ---
Date/Time of Note Date/Time of Note DATE: 10/20/18 TIME: 13:29 Objective Vital Signs Date Temp Pulse Resp B/P (MAP) Pulse Ox O2 O2 Flow FiO2 Time Delivery Rate 10/20/18 134/51 12:13 (78) 10/20/18 98.2 89 11:30 10/20/18 20 98 Room Air 07:30 Intake and Output 10/19/18 10/19/18 10/20/18 1414:59 22:59 06:59 IntakeIntake Total 900 ml OutputOutput Total 150 ml BalanceBalance 900 ml -150 ml Exam INTERDISCIPLINARY TEAM CONFERENCE Physical Exam: Pulm- cta Abd-soft BOWEL- Cont BLADDER-Cont SKIN- improving OT- DRESSING-min/mod BATHING-min/mod TOILETING-mod PT- BED MOBILITY-min TRANSFERS-min AMBULATION-min SPEECH- Dysphagia- soft, puree diet A/P- Interdisciplinary team conference held today. Please see interdisciplinary sheet. Working toward d.c. on 10/21 with family. Results/Medications Result Diagram: 10/20/18 0651 10/20/18 0651 Results 24 hrs Laboratory Tests Test 10/19/18 17:53 10/19/18 20:29 10/20/18 06:51 10/20/18 08:08 Bedside Glucose 159 167 136 White Blood Count 8.0 # Red Blood Count 3.14 L Hemoglobin 9.7 L Hematocrit 31.1 L Mean Corpuscular 99.0 Volume Mean Corpuscular 30.9 Hemoglobin Mean Corpuscular 31.2 L Hemoglobin Concent Red Cell 13.1 Distribution Width Platelet Count 173 # Mean Platelet Volume 8.7 Immature 0.400 Granulocytes % Neutrophils % 62.3 Lymphocytes % 27.6 Monocytes % 7.6 Eosinophils % 1.9 Basophils % 0.2 Nucleated Red Blood 0.0 Cells % Immature 0.030 Granulocytes # Neutrophils # 5.0 Lymphocytes # 2.2 Monocytes # 0.6 Eosinophils # 0.2 Basophils # 0.0 Nucleated Red Blood 0.0 Cells # Sodium Level 139 Potassium Level 4.8 Chloride Level 107 Carbon Dioxide Level 24 Anion Gap 8 Blood Urea Nitrogen 29 H Creatinine 1.25 H Est Glomerular Filtrat Rate mL/min Glucose Level 163 Calcium Level 8.8 Test 10/20/18 12:16 Bedside Glucose 148 Medications Current Medications Acetaminophen (Tylenol Tab) 650 mg Q6H PRN PO MILD PAIN(1-3)OR ELEVATED TEMP Last administered on 10/20/18 11:38; Admin Dose 650 MG; Start 10/14/18 at 20:00 Albuterol/ Ipratropium (Duoneb) 3 ml Q2H RESP THERAPY PRN HHN SHORTNESS OF BREATH; Start 10/14/18 at 20:00 Amiodarone HCl (Cordarone) 200 mg BID PO Last administered on 10/20/18 11:35; Admin Dose 200 MG; Start 10/14/18 at 21:00 Apixaban (Eliquis) 2.5 mg BID PO Last administered on 10/19/18 20:59; Admin Dose 2.5 MG; Start 10/14/18 at 21:00 Aspirin (Aspirin) 81 mg DAILY PO Last administered on 10/19/18 09:45; Admin Dose 81 MG; Start 10/15/18 at 09:00 Atorvastatin Calcium (Lipitor) 80 mg HS PO Last administered on 10/19/18 20:56; Admin Dose 80 MG; Start 10/14/18 at 21:00 Bisacodyl (Dulcolax) 10 mg DAILY PRN PO CONSTIPATION Last administered on 10/19/18 10:16; Admin Dose 10 MG; Start 10/14/18 at 20:00 Docusate Sodium (Colace) 100 mg Q12 PRN PO CONSTIPATION; Start 10/14/18 at 20:00 Nitroglycerin (Nitroglycerin (Sl Tab) 0.4 Mg) 1 tab Q5M PRN SL ANGINA Last administered on 10/20/18 13:06; Admin Dose 1 TAB; Start 10/14/18 at 20:00 Silver Sulfadiazine (Thermazene 1% 25 Gm) 1 applic Q12 TOP Last administered on 10/19/18 14:16; Admin Dose 1 APPLIC; Start 10/14/18 at 21:00 Silver Sulfadiazine (Thermazene 1% 25 Gm) 1 applic NOTE PRN TOP NOTE; Start 10/14/18 at 20:00 Zolpidem Tartrate (Ambien) 5 mg HS PRN PO INSOMNIA; Start 10/14/18 at 20:00 Miscellaneous Information (Pending [facility] Order For Wound Care) This patient braun... PRN PRN XX WOUND CARE; Start 10/14/18 at 20:30 Diagnostic Test (Pha) (Accu-Chek) 1 ea AC MEALS AND BEDTIME XX Last administered on 10/20/18 12:16; Admin Dose 1 EA; Start 10/15/18 at 11:30 Eye Lubricant (Artificial Tears Oph) 2 drop BID PRN BOTH EYES DRY EYES Last administered on 10/19/18 09:59; Admin Dose 2 DROP; Start 10/15/18 at 11:00 Ondansetron HCl (Zofran Odt) 4 mg Q6H PRN ODT N/V Last administered on 10/20/18 08:15; Admin Dose 4 MG; Start 10/15/18 at 13:30 Isosorbide Mononitrate (Imdur) 30 mg DAILY PO Last administered on 10/17/18 09:16; Admin Dose 30 MG; Start 10/16/18 at 10:00 Insulin Aspart (Novolog Insulin Pen) NOVOLOG *MILD* ALGORITHM WITH MEALS BEDTIME SC Last administered on 10/19/18 17:59; Admin Dose 1 UNIT; Start 10/16/18 at 21:15 Miscellaneous Information 1 ea NOTE XX ; Start 10/16/18 at 21:30 Glucose (Glutose) 15 gm Q15M PRN PO DECREASED GLUCOSE; Start 10/16/18 at 21:30 Glucose (Glutose) 22.5 gm Q15M PRN PO DECREASED GLUCOSE; Start 10/16/18 at 21:30 Dextrose (D50w Syringe) 25 ml Q15M PRN IV DECREASED GLUCOSE; Start 10/16/18 at 21:30 Dextrose (D50w Syringe) 50 ml Q15M PRN IV DECREASED GLUCOSE; Start 10/16/18 at 21:30 Glucagon (Glucagen) 1 mg Q15M PRN IM DECREASED GLUCOSE; Start 10/16/18 at 21:30 Glucose (Glutose) 15 gm Q15M PRN BUCCAL DECREASED GLUCOSE; Start 10/16/18 at 21:30 Tramadol HCl (Ultram) 50 mg Q6H PRN PO MODERATE PAIN LEVEL 4-6; Start 10/18/18 at 04:30 Carvedilol (Coreg) 12.5 mg BID PO Last administered on 10/20/18 11:37; Admin Dose 12.5 MG; Start 10/18/18 at 21:00 Hydralazine HCl (Apresoline) 100 mg Q12 PO Last administered on 10/20/18at 11:34; Admin Dose 100 MG; Start 10/18/18 at 21:00 LINO HILL MD Oct 20, 2018 13:29
--- NOTE | 2018-10-20 15:46 | CONS ---
Consult Date/Type/Reason Admit Date/Time Oct 14, 2018 at 18:35 Initial Consult Date 10/15/18 Type of Consultation: CV Requesting Provider: ALEN FLORES MD, [facility] Date/Time of Note DATE: 10/20/18 TIME: 15:44 Subjective Cardiology follow-up progress note Subjective: Discussed with the staff. Patient with c/o left sided chest pressure severe earlier today but better now. No PND no orthopnea palpitation. She has had labile blood pressure Objective: General: Elderly female appears to be older than stated age in no acute distress HEENT: NC/AT. pupils are equal. round. NECK: NO JVD. no stridor. CV: RRR. systolic/diastolic murmur; no gallop or rubs. PULM: no wheezing or rhonchi. GI: SOFT, NT, ND, no rebound or guarding Extremity: trace B/L LE edema. no clubbing. neuro: awake and alert, . Psych: appears anxious but pleasant rectal: deferred Vascular: Right radial pulses are stronger than the left side Most recent echocardiogram shows: Moderate left ventricular systolic dysfunction. Ejection fraction is visually estimated at 30-35 %. Tissue Doppler/Mitral Doppler indices are consistent with restrictive physiology with markedly elevated left atrial pressure (Stage III-IV diastolic dysfunction). Multiple segmental wall motion abnormalities. There is moderate enlargement of left atrium. There is mild enlargement of right atrium. Moderate mitral leaflet calcification. Moderate mitral annular calcification. Moderate to severe mitral valve regurgitation. Aortic valve not well visualized. Moderate to severe aortic stenosis however due to low cardiac output severity of aortic stenosis is underestimated. Aortic valve area 0.90 cm2. Mild to moderate aortic valve regurgitation. Normal appearance of the tricuspid valve. There is moderate tricuspid regurgitation. Dilated inferior vena cava with poor inspiratory collapse consistent with elevated right atrial pressures. Objective Vitals Vital Signs Date Temp Pulse Resp B/P (MAP) Pulse Ox O2 O2 Flow FiO2 Time Delivery Rate 10/20/18 99.7 84 18 124/59 96 Room Air 14:00 (80) Intake and Output 10/19/18 10/19/18 10/20/18 1515:00 23:00 07:00 IntakeIntake Total 900 ml OutputOutput Total 150 ml BalanceBalance 900 ml -150 ml Results/Medications Result Diagram: 10/20/18 0651 10/20/18 0651 Results 24 hrs Laboratory Tests Test 10/19/18 17:53 10/19/18 20:29 10/20/18 06:51 10/20/18 08:08 Bedside Glucose 159 167 136 White Blood Count 8.0 # Red Blood Count 3.14 L Hemoglobin 9.7 L Hematocrit 31.1 L Mean Corpuscular 99.0 Volume Mean Corpuscular 30.9 Hemoglobin Mean Corpuscular 31.2 L Hemoglobin Concent Red Cell 13.1 Distribution Width Platelet Count 173 # Mean Platelet Volume 8.7 Immature 0.400 Granulocytes % Neutrophils % 62.3 Lymphocytes % 27.6 Monocytes % 7.6 Eosinophils % 1.9 Basophils % 0.2 Nucleated Red Blood 0.0 Cells % Immature 0.030 Granulocytes # Neutrophils # 5.0 Lymphocytes # 2.2 Monocytes # 0.6 Eosinophils # 0.2 Basophils # 0.0 Nucleated Red Blood 0.0 Cells # Sodium Level 139 Potassium Level 4.8 Chloride Level 107 Carbon Dioxide Level 24 Anion Gap 8 Blood Urea Nitrogen 29 H Creatinine 1.25 H Est Glomerular Filtrat Rate mL/min Glucose Level 163 Calcium Level 8.8 Test 10/20/18 12:16 10/20/18 13:52 Bedside Glucose 148 Troponin I < 0.012 Home Meds Active Scripts Insulin Aspart* (Novolog Insulin Pen*) 100 Unit/Ml Soln, 0 UNIT SC AC MEALS AND BEDTIME for 30 Days Prov:ALEX HYLTON 09/26/18 Spironolactone* (Aldactone*) 25 Mg Tablet, 25 MG PO DAILY for 30 Days, TAB Prov:ALEX HYLTON 09/26/18 Metoprolol Succinate* (Toprol XL*) 25 Mg Tab.sr.24h, 50 MG PO BID for 30 Days Prov:ALEX HYLTON 09/26/18 Atorvastatin* (Atorvastatin*) 80 Mg Tablet, 80 MG PO HS for 30 Days, TAB Prov:ALEX HYLTON 09/26/18 Amiodarone Hcl* (Amiodarone Hcl*) 200 Mg Tablet, 200 MG PO BID for 30 Days, TAB Prov:ALEX HYLTON 09/26/18 Apixaban* (Eliquis*) 5 Mg Tablet, 5 MG PO BID for 30 Days, TAB Prov:ALEX HYLTON 09/26/18 Reported Medications Folic Acid* (Folic Acid*) 1 Mg Tablet, 1 MG PO DAILY, TAB 09/23/18 Aspirin* (Aspirin* EC) 81 Mg Tablet.dr, 81 MG PO DAILY, TAB 09/23/18 Medications Current Medications Acetaminophen (Tylenol Tab) 650 mg Q6H PRN PO MILD PAIN(1-3)OR ELEVATED TEMP Last administered on 10/20/18 11:38; Admin Dose 650 MG; Start 10/14/18 at 20:00 Albuterol/ Ipratropium (Duoneb) 3 ml Q2H RESP THERAPY PRN HHN SHORTNESS OF BREATH; Start 10/14/18 at 20:00 Amiodarone HCl (Cordarone) 200 mg BID PO Last administered on 10/20/18 11:35; Admin Dose 200 MG; Start 10/14/18 at 21:00 Apixaban (Eliquis) 2.5 mg BID PO Last administered on 10/19/18 20:59; Admin Dose 2.5 MG; Start 10/14/18 at 21:00 Aspirin (Aspirin) 81 mg DAILY PO Last administered on 10/19/18 09:45; Admin Dose 81 MG; Start 10/15/18 at 09:00 Atorvastatin Calcium (Lipitor) 80 mg HS PO Last administered on 10/19/18 20:56; Admin Dose 80 MG; Start 10/14/18 at 21:00 Bisacodyl (Dulcolax) 10 mg DAILY PRN PO CONSTIPATION Last administered on 10/19/18 10:16; Admin Dose 10 MG; Start 10/14/18 at 20:00 Docusate Sodium (Colace) 100 mg Q12 PRN PO CONSTIPATION; Start 10/14/18 at 20:00 Nitroglycerin (Nitroglycerin (Sl Tab) 0.4 Mg) 1 tab Q5M PRN SL ANGINA Last administered on 10/20/18 13:06; Admin Dose 1 TAB; Start 10/14/18 at 20:00 Silver Sulfadiazine (Thermazene 1% 25 Gm) 1 applic Q12 TOP Last administered on 10/19/18 14:16; Admin Dose 1 APPLIC; Start 10/14/18 at 21:00 Silver Sulfadiazine (Thermazene 1% 25 Gm) 1 applic NOTE PRN TOP NOTE; Start 10/14/18 at 20:00 Zolpidem Tartrate (Ambien) 5 mg HS PRN PO INSOMNIA; Start 10/14/18 at 20:00 Miscellaneous Information (Pending [facility] Order For Wound Care) This patient braun... PRN PRN XX WOUND CARE; Start 10/14/18 at 20:30 Diagnostic Test (Pha) (Accu-Chek) 1 ea AC MEALS AND BEDTIME XX Last admi nistered on 10/20/18at 12:16; Admin Dose 1 EA; Start 10/15/18 at 11:30 Eye Lubricant (Artificial Tears Oph) 2 drop BID PRN BOTH EYES DRY EYES Last administered on 10/19/18 09:59; Admin Dose 2 DROP; Start 10/15/18 at 11:00 Ondansetron HCl (Zofran Odt) 4 mg Q6H PRN ODT N/V Last administered on 08:15; Admin Dose 4 MG; Start 10/15/18 at 13:30 Isosorbide Mononitrate (Imdur) 30 mg DAILY PO Last administered on 10/17/18 09:16; Admin Dose 30 MG; Start 10/16/18 at 10:00 Insulin Aspart (Novolog Insulin Pen) NOVOLOG *MILD* ALGORITHM WITH MEALS BEDTIME SC Last administered on 10/19/18 17:59; Admin Dose 1 UNIT; Start 10/16/18 at 21:15 Miscellaneous Information 1 ea NOTE XX ; Start 10/16/18 at 21:30 Glucose (Glutose) 15 gm Q15M PRN PO DECREASED GLUCOSE; Start 10/16/18 at 21:30 Glucose (Glutose) 22.5 gm Q15M PRN PO DECREASED GLUCOSE; Start 10/16/18 at 21:30 Dextrose (D50w Syringe) 25 ml Q15M PRN IV DECREASED GLUCOSE; Start 10/16/18 at 21:30 Dextrose (D50w Syringe) 50 ml Q15M PRN IV DECREASED GLUCOSE; Start 10/16/18 at 21:30 Glucagon (Glucagen) 1 mg Q15M PRN IM DECREASED GLUCOSE; Start 10/16/18 at 21:30 Glucose (Glutose) 15 gm Q15M PRN BUCCAL DECREASED GLUCOSE; Start 10/16/18 at 21:30 Tramadol HCl (Ultram) 50 mg Q6H PRN PO MODERATE PAIN LEVEL 4-6; Start 10/18/18 at 04:30 Carvedilol (Coreg) 12.5 mg BID PO Last administered on 10/20/18at 11:37; Admin Dose 12.5 MG; Start 10/18/18 at 21:00 Hydralazine HCl (Apresoline) 100 mg Q12 PO Last administered on 10/20/18at 11:34; Admin Dose 100 MG; Start 10/18/18 at 21:00 Assessment/Plan Hospital Course (Demo Recall) 1. Coronary artery disease status post recent non-ST elevation myocardial infa rction 2. Congestive heart failure/cardiomyopathy: Currently appears to be euvolemic chronic and stable second systolic and diastolic heart failure 3. Proximal atrial fibrillation: currently in sinus rhythm 4. Hyperkalemia and renal insufficiency: f/u renal rec 5. Diabetes 6. Dyslipidemia 7. Hypertension 8. Peripheral vascular disease with likely subclavian stenosis 9. chest pain Recommendations: off Aldactone and BRIANNA-I given her hyperkalemia and renal failure Continue with the Coreg aspirin Eliquis will be continued given her recurrent proximal atrial fibrillation Amiodarone will be continued for now and slowly will decrease the dose if able to remain remains stable Continue physical therapy and rehab Diabetic management as per internal medicine cont hydralazine / isordil combo for her HTN and CHF since can not tolerate BRIANNA but pt has refused the imdur today No further cardiac recommendation at this point. Family have previously reported to me that they are setting her up for outpatient hospice. Therefore will avoid any aggressive surgical treatment. We will repeat the cardiac enzymes tomorrow Thank you for his referral. LUIS A AGUILERA MD [facility] LUIS A AGUILERA MD Oct 20, 2018 15:46
[2018-10-20] MEDS: ARTIFICIAL TEARS 15 ML OPH BOTH EYES PRN ×3 (16:45→21:56)
--- NOTE | 2018-10-20 18:40 | RADRPT ---
Vent Rate: 89 bpm RR Interval: 0 msec UT Interval: 216 msec QRS Duration: 144 msec QT Interval: 422 msec QTC Interval: 513 msec P-R-T [place]: 53 - 0 - 173 degrees Sinus rhythm with 1st degree AV block Left bundle branch block Abnormal ECG Electronically Signed By: Marco Moore
[2018-10-20] MEDS: ATORVASTATIN 80 MG TAB PO SCH (20:55)
[2018-10-21 02:00] VITALS: BP 123/55; PULSE 69; RESP 18
[2018-10-21 07:00] VITALS: BP 137/73; PULSE 72; RESP 18
[2018-10-21] MEDS: INSULIN ASPART [NOVOLOG] 3 ML PEN SC SCH ×2 (07:35→12:51)
[2018-10-21] MEDS: ACCU-CHEK XX SCH ×2 (08:04→11:30)
--- NOTE | 2018-10-21 08:40 | PN ---
Date/Time of Note Date/Time of Note DATE: 10/21/18 TIME: 08:38 Assessment/Plan VTE Prophylaxis Risk score (from Ns)>0 risk: 5 SCD applied (from Ns): No SCD contraindicated: other Pharmacological prophylaxis: apixaban Lines/Catheters IV C[facility]ter Type [facility]from [facility]): Saline Lock Assessment/Plan Hospital Course SUBJECTIVE: Had chest pain yesterday. today comfortable. no acute distress. OBJECTIVE: Vital signs-see below PHYSICAL EXAM: Constitutional: Well-developed, adequately built, lying in bed comfortably. Psych: nl mood/affect, no complaints Head: atraumatic, normocephalic Eyes: nl conjunctiva, nl sclera ENMT: mucosa pink and moist, nl external ears & nose Neck: non-tender, supple Respiratory: clear to auscultation, normal air movement Cardiovascular: Irregular rate and rhythm Gastrointestinal: non-tender, soft, bowel sounds active in all 4 quadrants. Musculoskeletal/extremities: nl extremities to inspection, motor strength equal bilaterally, no focal deficit. Normal pulses,no cyanosis, no edema. Neurological: Alert oriented 3,nl speech, nl strength Skin: nl turgor ASSESSMENT/PLAN: 82-year-old female with NSTEMI, triple-vessel coronary artery disease who declined coronary artery bypass grafting,htn,dyslipidemia,afib,dm, transferred from [place] for physical therapy. 1. Debility -Continue rehab 2. Triple-vessel coronary artery disease -Patient declined bypass grafting. At this time continue conservative medical management with Aspirin, Coreg, statin. Aldactone held secondary to hyperkalemia. 3. Atrial fibrillation -Currently rate controlled. -on amiodarone,BB and anticoagulate with Eliquis. 4. Congestive heart failure/cardiomyopathy with last known ejection fraction 30- 35%. -Clinically stable. -Continue beta-blockers. Not a candidate for Aldactone. -Follow-up cardiology recommendations 5. Hypertension -not adequately controlled secondary to patient refusing antihypertensives-today bp stable -monitor 6. Dyslipidemia -Continue statin 7.DMII -w/hyperglycemia-refuses insulin-DM education ordered -Continue Accu-Cheks/ISS 8. Acute kidney injury on CKD stage III -Creat not much fluctuation -Monitor renal function. -f/u nephro recs 9. Anemia of chronic disease. -Stable H&H. Continue to monitor. 10. Peripheral vascular disease w subclavian stenosis -Continue antiplatelets. 11.Chest pain, resolved,likely musculoskeletal -Trops negative/ekg negative DVT prophylaxis: Hakeem Patient was seen in collaboration with . Result Diagram: 10/21/18 0641 10/21/18 0641 Results 24hrs Laboratory Tests Test 10/20/18 12:16 10/20/18 13:52 10/20/18 17:39 10/20/18 20:26 Bedside Glucose 148 152 Troponin I < 0.012 < 0.012 Creatinine Kinase MB 0.48 (Mass) Test 10/20/18 20:48 10/21/18 06:41 10/21/18 08:03 Bedside Glucose 172 126 White Blood Count 5.2 # Red Blood Count 2.85 L Hemoglobin 8.9 L Hematocrit 28.1 L Mean Corpuscular 98.6 Volume Mean Corpuscular 31.2 Hemoglobin Mean Corpuscular 31.7 L Hemoglobin Concent Red Cell 13.1 Distribution Width Platelet Count 166 Mean Platelet Volume 9.1 Immature 0.200 Granulocytes % Neutrophils % 51.5 Lymphocytes % 37.4 Monocytes % 8.2 Eosinophils % 2.3 Basophils % 0.4 Nucleated Red Blood 0.0 Cells % Immature 0.010 Granulocytes # Neutrophils # 2.7 Lymphocytes # 2.0 Monocytes # 0.4 Eosinophils # 0.1 Basophils # 0.0 Nucleated Red Blood 0.0 Cells # Sodium Level 137 Potassium Level 5.0 Chloride Level 101 Carbon Dioxide Level 26 Anion Gap 10 Blood Urea Nitrogen 31 H Creatinine 1.53 H Est Glomerular Filtrat Rate mL/min Glucose Level 126 Calcium Level 8.9 Magnesium Level 1.4 L Total Bilirubin 0.6 Direct Bilirubin 0.00 Indirect Bilirubin 0.6 Aspartate Amino 18 Transf (AST/SGOT) Alanine 19 Aminotransferase (AL T/SGPT) Alkaline Phosphatase 72 Creatine Kinase 25 Creatine Kinase 2.3 Index Creatinine Kinase MB 0.58 (Mass) Troponin I 0.023 B-Type Natriuretic 25072 H Peptide Total Protein 6.2 Albumin 2.9 L Globulin 3.30 H Albumin/Globulin 0.87 Ratio Exam/Review of Systems Exam Vitals Vital Signs Date Temp Pulse Resp B/P (MAP) Pulse Ox O2 O2 Flow FiO2 Time Delivery Rate 10/21/18 97.9 72 18 137/73 96 Room Air 07:00 (94) Intake and Output 10/20/18 10/20/18 10/21/18 1515:00 23:00 07:00 IntakeIntake Total 680 ml OutputOutput Total 300 ml 450 ml BalanceBalance -300 ml 680 ml -450 ml Results Results 24hrs Laboratory Tests Test 10/20/18 12:16 10/20/18 13:52 10/20/18 17:39 10/20/18 20:26 Bedside Glucose 148 152 Troponin I < 0.012 < 0.012 Creatinine Kinase MB 0.48 (Mass) Test 10/20/18 20:48 10/21/18 06:41 10/21/18 08:03 Bedside Glucose 172 126 White Blood Count 5.2 # Red Blood Count 2.85 L Hemoglobin 8.9 L Hematocrit 28.1 L Mean Corpuscular 98.6 Volume Mean Corpuscular 31.2 Hemoglobin Mean Corpuscular 31.7 L Hemoglobin Concent Red Cell 13.1 Distribution Width Platelet Count 166 Mean Platelet Volume 9.1 Immature 0.200 Granulocytes % Neutrophils % 51.5 Lymphocytes % 37.4 Monocytes % 8.2 Eosinophils % 2.3 Basophils % 0.4 Nucleated Red Blood 0.0 Cells % Immature 0.010 Granulocytes # Neutrophils # 2.7 Lymphocytes # 2.0 Monocytes # 0.4 Eosinophils # 0.1 Basophils # 0.0 Nucleated Red Blood 0.0 Cells # Sodium Level 137 Potassium Level 5.0 Chloride Level 101 Carbon Dioxide Level 26 Anion Gap 10 Blood Urea Nitrogen 31 H Creatinine 1.53 H Est Glomerular Filtrat Rate mL/min Glucose Level 126 Calcium Level 8.9 Magnesium Level 1.4 L Total Bilirubin 0.6 Direct Bilirubin 0.00 Indirect Bilirubin 0.6 Aspartate Amino 18 Transf (AST/SGOT) Alanine 19 Aminotransferase (AL T/SGPT) Alkaline Phosphatase 72 Creatine Kinase 25 Creatine Kinase 2.3 Index Creatinine Kinase MB 0.58 (Mass) Troponin I 0.023 B-Type Natriuretic 94801 H Peptide Total Protein 6.2 Albumin 2.9 L Globulin 3.30 H Albumin/Globulin 0.87 Ratio Medications Medication Current Medications Acetaminophen (Tylenol Tab) 650 mg Q6H PRN PO MILD PAIN(1-3)OR ELEVATED TEMP Last administered on 10/20/18at 11:38; Admin Dose 650 MG; Start 10/14/18 at 20:00 Albuterol/ Ipratropium (Duoneb) 3 ml Q2H RESP THERAPY PRN HHN SHORTNESS OF BREATH; Start 10/14/18 at 20:00 Amiodarone HCl (Cordarone) 200 mg BID PO Last administered on 10/20/18 21:49; Admin Dose 200 MG; Start 10/14/18 at 21:00 Apixaban (Eliquis) 2.5 mg BID PO Last administered on 10/20/18 20:55; Admin Dose 2.5 MG; Start 10/14/18 at 21:00 Aspirin (Aspirin) 81 mg DAILY PO Last administered on 10/20/18 16:40; Admin Dose 81 MG; Start 10/15/18 at 09:00 Atorvastatin Calcium (Lipitor) 80 mg HS PO Last administered on 10/20/18 20:55; Admin Dose 80 MG; Start 10/14/18 at 21:00 Bisacodyl (Dulcolax) 10 mg DAILY PRN PO CONSTIPATION Last administered on 10/19/18 10:16; Admin Dose 10 MG; Start 10/14/18 at 20:00 Docusate Sodium (Colace) 100 mg Q12 PRN PO CONSTIPATION; Start 10/14/18 at 20:00 Nitroglycerin (Nitroglycerin (Sl Tab) 0.4 Mg) 1 tab Q5M PRN SL ANGINA Last administered on 10/20/18 19:30; Admin Dose 1 TAB; Start 10/14/18 at 20:00 Silver Sulfadiazine (Thermazene 1% 25 Gm) 1 applic Q12 TOP Last administered on 10/20/18 20:56; Admin Dose 1 APPLIC; Start 10/14/18 at 21:00 Silver Sulfadiazine (Thermazene 1% 25 Gm) 1 applic NOTE PRN TOP NOTE; Start 10/14/18 at 20:00 Zolpidem Tartrate (Ambien) 5 mg HS PRN PO INSOMNIA; Start 10/14/18 at 20:00 Miscellaneous Information (Pending [facility] Order For Wound Care) This patient braun... PRN PRN XX WOUND CARE; Start 10/14/18 at 20:30 Diagnostic Test (Pha) (Accu-Chek) 1 ea AC MEALS AND BEDTIME XX Last administered on 10/21/18 08:04; Admin Dose 1 EA; Start 10/15/18 at 11:30 Eye Lubricant (Artificial Tears Oph) 2 drop BID PRN BOTH EYES DRY EYES Last administered on 10/20/18 21:56; Admin Dose 2 DROP; Start 10/15/18 at 11:00 Ondansetron HCl (Zofran Odt) 4 mg Q6H PRN ODT N/V Last administered on 10/20/18 08:15; Admin Dose 4 MG; Start 10/15/18 at 13:30 Isosorbide Mononitrate (Imdur) 30 mg DAILY PO Last administered on 10/17/18 09:16; Admin Dose 30 MG; Start 10/16/18 at 10:00 Insulin Aspart (Novolog Insulin Pen) NOVOLOG *MILD* ALGORITHM WITH MEALS BEDTIME SC Last administered on 10/20/18 17:43; Admin Dose 1 UNIT; Start 10/16/18 at 21:15 Miscellaneous Information 1 ea NOTE XX ; Start 10/16/18 at 21:30 Glucose (Glutose) 15 gm Q15M PRN PO DECREASED GLUCOSE; Start 10/16/18 at 21:30 Glucose (Glutose) 22.5 gm Q15M PRN PO DECREASED GLUCOSE; Start 10/16/18 at 21:30 Dextrose (D50w Syringe) 25 ml Q15M PRN IV DECREASED GLUCOSE; Start 10/16/18 at 21:30 Dextrose (D50w Syringe) 50 ml Q15M PRN IV DECREASED GLUCOSE; Start 10/16/18 at 21:30 Glucagon (Glucagen) 1 mg Q15M PRN IM DECREASED GLUCOSE; Start 10/16/18 at 21:30 Glucose (Glutose) 15 gm Q15M PRN BUCCAL DECREASED GLUCOSE; Start 10/16/18 at 21:30 Tramadol HCl (Ultram) 50 mg Q6H PRN PO MODERATE PAIN LEVEL 4-6; Start 10/18/18 at 04:30 Carvedilol (Coreg) 12.5 mg BID PO Last administered on 10/20/18 21:49; Admin Dose 12.5 MG; Start 10/18/18 at 21:00 Hydralazine HCl (Apresoline) 100 mg Q12 PO Last administered on 10/20/18 21:13; Admin Dose 100 MG; Start 10/18/18 at 21:00 BRIANA PABLO NP Oct 21, 2018 08:40
[2018-10-21] MEDS: ISOSORBIDE MONONITRATE(SR)30 MG TAB PO SCH (09:00)
[2018-10-21] MEDS: SILVER SULFADIAZINE 1% 25 GM CR TOP SCH (09:00)
[2018-10-21] MEDS: APIXABAN 5 MG TABLET PO SCH (09:35)
[2018-10-21] MEDS: ASPIRIN 81 MG TAB PO SCH (09:35)
[2018-10-21] MEDS: AMIODARONE 200 MG TAB PO SCH (09:35)
--- NOTE | 2018-10-21 11:14 | CONS ---
Consult Date/Type/Reason Admit Date/Time Oct 14, 2018 at 18:35 Initial Consult Date 10/15/18 Type of Consultation: CV Requesting Provider: ALEN FLORES MD, [facility] Date/Time of Note DATE: 10/21/18 TIME: 11:13 Subjective Cardiology follow-up progress note Subjective: Discussed with the staff and physicians and son and daughter. Patient with c/o left sided chest pressure last night but has resolved now. According to the patient's son patient is stable and now she wants to walk and she wants to go home on home hospice No PND no orthopnea palpitation. Objective: General: Elderly female appears to be older than stated age in no acute distress HEENT: NC/AT. pupils are equal. round. NECK: NO JVD. no stridor. CV: RRR. systolic/diastolic murmur; no gallop or rubs. PULM: no wheezing or rhonchi. GI: SOFT, NT, ND, no rebound or guarding Extremity: trace B/L LE edema. no clubbing. neuro: awake and alert, . Psych: Calm and pleasant rectal: deferred Vascular: Right radial pulses are stronger than the left side Most recent echocardiogram shows: Moderate left ventricular systolic dysfunction. Ejection fraction is visually es timated at 30-35 %. Tissue Doppler/Mitral Doppler indices are consistent with restrictive physiology with markedly elevated left atrial pressure (Stage III-IV diastolic dysfunction). Multiple segmental wall motion abnormalities. There is moderate enlargement of left atrium. There is mild enlargement of right atrium. Moderate mitral leaflet calcification. Moderate mitral annular calcification. Moderate to severe mitral valve regurgitation. Aortic valve not well visualized. Moderate to severe aortic stenosis however due to low cardiac output severity of aortic stenosis is underestimated. Aortic valve area 0.90 cm2. Mild to moderate aortic valve regurgitation. Normal appearance of the tricuspid valve. There is moderate tricuspid regurgitation. Dilated inferior vena cava with poor inspiratory collapse consistent with elevated right atrial pressures. Objective Vitals Vital Signs Date Temp Pulse Resp B/P (MAP) Pulse Ox O2 O2 Flow FiO2 Time Delivery Rate 10/21/18 97.9 72 18 137/73 96 Room Air 07:00 (94) Intake and Output 10/20/18 10/20/18 10/21/18 1515:00 23:00 07:00 IntakeIntake Total 680 ml OutputOutput Total 300 ml 450 ml BalanceBalance -300 ml 680 ml -450 ml Results/Medications Result Diagram: 10/21/18 0641 10/21/18 0641 Results 24 hrs Laboratory Tests Test 10/20/18 12:16 10/20/18 13:52 10/20/18 17:39 10/20/18 20:26 Bedside Glucose 148 152 Troponin I < 0.012 < 0.012 Creatinine Kinase MB 0.48 (Mass) Test 10/20/18 20:48 10/21/18 06:41 10/21/18 08:03 Bedside Glucose 172 126 White Blood Count 5.2 # Red Blood Count 2.85 L Hemoglobin 8.9 L Hematocrit 28.1 L Mean Corpuscular 98.6 Volume Mean Corpuscular 31.2 Hemoglobin Mean Corpuscular 31.7 L Hemoglobin Concent Red Cell 13.1 Distribution Width Platelet Count 166 Mean Platelet Volume 9.1 Immature 0.200 Granulocytes % Neutrophils % 51.5 Lymphocytes % 37.4 Monocytes % 8.2 Eosinophils % 2.3 Basophils % 0.4 Nucleated Red Blood 0.0 Cells % Immature 0.010 Granulocytes # Neutrophils # 2.7 Lymphocytes # 2.0 Monocytes # 0.4 Eosinophils # 0.1 Basophils # 0.0 Nucleated Red Blood 0.0 Cells # Sodium Level 137 Potassium Level 5.0 Chloride Level 101 Carbon Dioxide Level 26 Anion Gap 10 Blood Urea Nitrogen 31 H Creatinine 1.53 H Est Glomerular Filtrat Rate mL/min Glucose Level 126 Calcium Level 8.9 Magnesium Level 1.4 L Total Bilirubin 0.6 Direct Bilirubin 0.00 Indirect Bilirubin 0.6 Aspartate Amino 18 Transf (AST/SGOT) Alanine 19 Aminotransferase (AL T/SGPT) Alkaline Phosphatase 72 Creatine Kinase 25 Creatine Kinase 2.3 Index Creatinine Kinase MB 0.58 (Mass) Troponin I 0.023 B-Type Natriuretic 97985 H Peptide Total Protein 6.2 Albumin 2.9 L Globulin 3.30 H Albumin/Globulin 0.87 Ratio Home Meds Active Scripts Insulin Aspart* (Novolog Insulin Pen*) 100 Unit/Ml Soln, 0 UNIT SC AC MEALS AND BEDTIME for 30 Days Prov:ALEX HYLTON 09/26/18 Spironolactone* (Aldactone*) 25 Mg Tablet, 25 MG PO DAILY for 30 Days, TAB Prov:ALEX HYLTON 09/26/18 Metoprolol Succinate* (Toprol XL*) 25 Mg Tab.sr.24h, 50 MG PO BID for 30 Days Prov:ALEX HYLTON 09/26/18 Atorvastatin* (Atorvastatin*) 80 Mg Tablet, 80 MG PO HS for 30 Days, TAB Prov:ALEX HYLTON 09/26/18 Amiodarone Hcl* (Amiodarone Hcl*) 200 Mg Tablet, 200 MG PO BID for 30 Days, TAB Prov:ALEX HYLTON 09/26/18 Apixaban* (Eliquis*) 5 Mg Tablet, 5 MG PO BID for 30 Days, TAB Prov:ALEX HYLTON 09/26/18 Reported Medications Folic Acid* (Folic Acid*) 1 Mg Tablet, 1 MG PO DAILY, TAB 09/23/18 Aspirin* (Aspirin* EC) 81 Mg Tablet.dr, 81 MG PO DAILY, TAB 09/23/18 Medications Current Medications Acetaminophen (Tylenol Tab) 650 mg Q6H PRN PO MILD PAIN(1-3)OR ELEVATED TEMP Last administered on 10/20/18at 11:38; Admin Dose 650 MG; Start 10/14/18 at 20:00 Albuterol/ Ipratropium (Duoneb) 3 ml Q2H RESP THERAPY PRN HHN SHORTNESS OF BREATH; Start 10/14/18 at 20:00 Amiodarone HCl (Cordarone) 200 mg BID PO Last administered on 10/21/18at 09:35; Admin Dose 200 MG; Start 10/14/18 at 21:00 Apixaban (Eliquis) 2.5 mg BID PO Last administered on 10/21/18at 09:35; Admin Dose 2.5 MG; Start 10/14/18 at 21:00 Aspirin (Aspirin) 81 mg DAILY PO Last administered on 10/21/18 09:35; Admin Dose 81 MG; Start 10/15/18 at 09:00 Atorvastatin Calcium (Lipitor) 80 mg HS PO Last administered on 10/20/18at 20:55; Admin Dose 80 MG; Start 10/14/18 at 21:00 Bisacodyl (Dulcolax) 10 mg DAILY PRN PO CONSTIPATION Last administered on 10/19/18 10:16; Admin Dose 10 MG; Start 10/14/18 at 20:00 Docusate Sodium (Colace) 100 mg Q12 PRN PO CONSTIPATION; Start 10/14/18 at 20:00 Nitroglycerin (Nitroglycerin (Sl Tab) 0.4 Mg) 1 tab Q5M PRN SL ANGINA Last administered on 10/20/18 19:30; Admin Dose 1 TAB; Start 10/14/18 at 20:00 Silver Sulfadiazine (Thermazene 1% 25 Gm) 1 applic Q12 TOP Last administered on 10/20/18 20:56; Admin Dose 1 APPLIC; Start 10/14/18 at 21:00 Silver Sulfadiazine (Thermazene 1% 25 Gm) 1 applic NOTE PRN TOP NOTE; Start 10/14/18 at 20:00 Zolpidem Tartrate (Ambien) 5 mg HS PRN PO INSOMNIA; Start 10/14/18 at 20:00 Miscellaneous Information (Pending [facility] Order For Wound Care) This patient braun... PRN PRN XX WOUND CARE; Start 10/14/18 at 20:30 Diagnostic Test (Pha) (Accu-Chek) 1 ea AC MEALS AND BEDTIME XX Last administered on 10/21/18 08:04; Admin Dose 1 EA; Start 10/15/18 at 11:30 Eye Lubricant (Artificial Tears Oph) 2 drop BID PRN BOTH EYES DRY EYES Last administered on 10/20/18 21:56; Admin Dose 2 DROP; Start 10/15/18 at 11:00 Ondansetron HCl (Zofran Odt) 4 mg Q6H PRN ODT N/V Last administered on 10/20/18 08:15; Admin Dose 4 MG; Start 10/15/18 at 13:30 Isosorbide Mononitrate (Imdur) 30 mg DAILY PO Last administered on 10/17/18 09:16; Admin Dose 30 MG; Start 10/16/18 at 10:00 Insulin Aspart (Novolog Insulin Pen) NOVOLOG *MILD* ALGORITHM WITH MEALS BEDTIME SC Last administered on 10/20/18 17:43; Admin Dose 1 UNIT; Start 10/16/18 at 21:15 Miscellaneous Information 1 ea NOTE XX ; Start 10/16/18 at 21:30 Glucose (Glutose) 15 gm Q15M PRN PO DECREASED GLUCOSE; Start 10/16/18 at 21:30 Glucose (Glutose) 22.5 gm Q15M PRN PO DECREASED GLUCOSE; Start 10/16/18 at 21:30 Dextrose (D50w Syringe) 25 ml Q15M PRN IV DECREASED GLUCOSE; Start 10/16/18 at 21:30 Dextrose (D50w Syringe) 50 ml Q15M PRN IV DECREASED GLUCOSE; Start 10/16/18 at 21:30 Glucagon (Glucagen) 1 mg Q15M PRN IM DECREASED GLUCOSE; Start 10/16/18 at 21:30 Glucose (Glutose) 15 gm Q15M PRN BUCCAL DECREASED GLUCOSE; Start 10/16/18 at 21:30 Tramadol HCl (Ultram) 50 mg Q6H PRN PO MODERATE PAIN LEVEL 4-6; Start 10/18/18 at 04:30 Carvedilol (Coreg) 12.5 mg BID PO Last administered on 10/21/18at 08:45; Admin Dose 12.5 MG; Start 10/18/18 at 21:00 Hydralazine HCl (Apresoline) 100 mg Q12 PO Last administered on 10/21/18at 09:35; Admin Dose 50 MG; Start 10/18/18 at 21:00 Assessment/Plan Hospital Course (Demo Recall) 1. Coronary artery disease status post recent non-ST elevation myocardial infarction 2. Congestive heart failure/cardiomyopathy: Currently appears to be euvolemic chronic and stable second systolic and diastolic heart failure 3. Proximal atrial fibrillation: currently in sinus rhythm 4. Hyperkalemia and renal insufficiency: f/u renal rec 5. Diabetes 6. Dyslipidemia 7. Hypertension 8. Peripheral vascular disease with likely subclavian stenosis 9. chest pain Recommendations: off Aldactone and BRIANNA-I given her hyperkalemia and renal failure Continue with the Coreg aspirin Eliquis will be continued given her recurrent proximal atrial fibrillation Amiodarone will be continued for now and slowly will decrease the dose if able to remain remains stable Continue physical therapy and rehab Diabetic management as per internal medicine cont hydralazine / isordil combo for her HTN and CHF since can not tolerate BRIANNA- I No further cardiac recommendation at this point. Family is reporting to me that they want to go home on home hospice DC planning is being done at home hospice today Thank you for his referral. LUIS A AGUILERA MD [facility] LUIS A AGUILERA MD Oct 21, 2018 11:14
--- NOTE | 2018-10-21 12:38 | DS ---
Date/Time of Note Date/Time of Note DATE: 10/21/18 TIME: 12:35 Discharge Summary Admission/Discharge Info Admit Date/Time Oct 14, 2018 at 18:35 Discharge Date/Time Discharge Diagnosis 1. Critical illness myopathy;Debility, status post acute respiratory failure and sepsis- overall improved 2. Coronary artery disease, non-ST elevation NV with patient declining CABG. 3. Atrial fibrillation. 4. Hypertension. 5. Diabetes mellitus. 6. Hyperlipidemia. 7. Hypothyroidism. 8. chronic kidney disease. 9. Anemia. 10. Dysphagia. 11. Improvements in self-care and mobility. Patient Condition: Fair Hospital Course The patient was admitted for comprehensive interdisciplinary rehabilitation and made gradual functional gains from a Mod level to a Min level for self care tasks and mobility including ambulating over 50 feet with the use of a FWW. Patient required encouragement for activities. Family requested discharge home with hospice given the gradual gains and current diagnosis. The DC meds are per the medication reconciliation sheet. The discharge equipment recommendations include: FWW, BSC, shower chair. The patient will follow up with PMD upon DC. Home Meds Active Scripts Insulin Aspart* (Novolog Insulin Pen*) 100 Unit/Ml Soln, 0 UNIT SC AC MEALS AND BEDTIME for 30 Days Prov:ALEX HYLTON 09/26/18 Spironolactone* (Aldactone*) 25 Mg Tablet, 25 MG PO DAILY for 30 Days, TAB Prov:ALEX HYLTON 09/26/18 Metoprolol Succinate* (Toprol XL*) 25 Mg Tab.sr.24h, 50 MG PO BID for 30 Days Prov:ALEX HYLTON 09/26/18 Atorvastatin* (Atorvastatin*) 80 Mg Tablet, 80 MG PO HS for 30 Days, TAB Prov:ALEX HYLTON 09/26/18 Amiodarone Hcl* (Amiodarone Hcl*) 200 Mg Tablet, 200 MG PO BID for 30 Days, TAB Prov:ALEX HYLTON 09/26/18 Apixaban* (Eliquis*) 5 Mg Tablet, 5 MG PO BID for 30 Days, TAB Prov:ALEX HYLTON 09/26/18 Reported Medications Folic Acid* (Folic Acid*) 1 Mg Tablet, 1 MG PO DAILY, TAB 09/23/18 Aspirin* (Aspirin* EC) 81 Mg Tablet., 81 MG PO DAILY, TAB 09/23/18 Primary Care Provider Sukhi Barnes MD Pending Labs Laboratory Tests Test 10/20/18 13:52 10/20/18 17:39 10/20/18 20:26 10/20/18 20:48 Troponin I < 0.012 < 0.012 ng/ml (0.000-0. ng/ml (0.000-0 120) .120) Bedside 152 172 Glucose mg/dL (70-220) mg/dL (70-220) Creatinine 0.48 Kinase MB ng/ml (0.0-2.4 (Mass) ) Test 10/21/18 06:41 10/21/18 08:03 10/21/18 12:16 White Blood 5.2 Count 10^3/ul (4.8-10 .8) Red Blood 2.85 Count 10^6/ul (4.20-5 .40) Hemoglobin 8.9 g/dl (12.0-16.0 ) Hematocrit 28.1 % (37.0-47.0) Mean 98.6 Corpuscular fl (82.0-101.0) Volume Mean 31.2 Corpuscular pg (29.0-33.0) Hemoglobin Mean 31.7 Corpuscular g/dl (32.0-37.0 Hemoglobin Conc ) ent Red Cell 13.1 Distribution % (11.5-14.5) Width Platelet Count 166 10^3/UL (140-41 5) Mean Platelet 9.1 Volume fl (7.4-10.4) Immature 0.200 Granulocytes % % (0.001-0.429) Neutrophils % 51.5 % (39.0-77.0) Lymphocytes % 37.4 % (15.0-51.0) Monocytes % 8.2 % (0.0-11.0) Eosinophils % 2.3 % (0.0-7.0) Basophils % 0.4 % (0.0-2.0) Nucleated Red 0.0 Blood Cells % /100WBC (0.0-0. 0) Immature 0.010 Granulocytes # 10^3/ul (0.0-0. 031) Neutrophils # 2.7 10^3/ul (1.6-7. 5) Lymphocytes # 2.0 10^3/ul (0.8-2. 9) Monocytes # 0.4 10^3/ul (0.3-0. 9) Eosinophils # 0.1 10^3/ul (0.0-0. 5) Basophils # 0.0 10^3/ul (0.0-0. 1) Nucleated Red 0.0 Blood Cells # 10^3/ul (0.0-0. 0) Sodium Level 137 mmol/L (135-144 ) Potassium 5.0 Level mmol/L (3.5-5.1 ) Chloride Level 101 mmol/L (97-110) Carbon Dioxide 26 Level mmol/L (21-31) Anion Gap 10 (5-13) Blood Urea 31 mg/dl (7-20) Nitrogen Creatinine 1.53 mg/dl (0.44-1.0 0) Est Glomerular mL/min (>60) Filtrat Rate mL/min Glucose Level 126 mg/dl (70-220) Calcium Level 8.9 mg/dl (8.4-10.2 ) Magnesium 1.4 Level mg/dl (1.7-2.5) Total 0.6 Bilirubin mg/dl (0.2-1.3) Direct 0.00 Bilirubin mg/dl (0.00-0.2 0) Indirect 0.6 Bilirubin mg/dl (0-1.1) Aspartate Amino 18 IU/L (15-46) Transf (AST/SGO T) Alanine 19 IU/L (13-69) Aminotransferas e (ALT/SGPT) Alkaline 72 Phosphatase IU/L (42-121) Creatine 25 Kinase IU/L (23-200) Creatine Kinase 2.3 Index Creatinine 0.58 Kinase MB ng/ml (0.0-2.4) (Mass) Troponin I 0.023 ng/ml (0.000-0. 120) B-Type 29350 Natriuretic PG/ML (0-450) Peptide Total Protein 6.2 g/dl (6.1-8.1) Albumin 2.9 g/dl (3.3-4.9) Globulin 3.30 g/dl (1.3-3.2) Albumin/Globuli 0.87 n Ratio Bedside 126 228 Glucose mg/dL (70-220) mg/dL (70-220) LINO HILL MD Oct 21, 2018 12:38
--- NOTE | 2018-10-21 12:41 | CONS ---
Assessment/Plan Assessment/Plan Assessment/Plan (Daily) 1, acute hyperkalemia- -resolved 2. STANLEY on CKD III 3. H./o CKD III due to CHF and HTN 4. Cardiomyopathy with EF 30-35% 5. h/o CAD three vessel, pt declined CABG 6.H/o Atrila firbillation 7. H/o HTN 8. H/O HL 9. H/o PAD 10. Anemia of chronic disease Plan: BUN/Cr improved to 29/1.25, BP stable Continue current meds, ASA< Lipitor Amiodraone for rate control, eliquis for anticoagulation for atrial fibrillation will follow up Consultation Date/Type/Reason Admit Date/Time Oct 14, 2018 at 18:35 Initial Consult Date 10/15/18 Type of Consult NEPHROLOGY Requesting Provider: ALEN FLORES MD, [facility] Date/Time of Note DATE: 10/21/18 TIME: 12:41 Exam/Review of Systems Exam Vitals Vital Signs Date Temp Pulse Resp B/P (MAP) Pulse Ox O2 O2 Flow FiO2 Time Delivery Rate 10/21/18 97.9 72 18 137/73 96 Room Air 07:00 (94) Intake and Output 10/20/18 10/20/18 10/21/18 1515:00 23:00 07:00 IntakeIntake Total 680 ml OutputOutput Total 300 ml 450 ml BalanceBalance -300 ml 680 ml -450 ml Results Result Diagram: 10/21/18 0641 10/21/18 0641 Results 24hrs Laboratory Tests Test 10/20/18 13:52 10/20/18 17:39 10/20/18 20:26 10/20/18 20:48 Troponin I < 0.012 < 0.012 Bedside Glucose 152 172 Creatinine Kinase MB 0.48 (Mass) Test 10/21/18 06:41 10/21/18 08:03 10/21/18 12:16 White Blood Count 5.2 # Red Blood Count 2.85 L Hemoglobin 8.9 L Hematocrit 28.1 L Mean Corpuscular 98.6 Volume Mean Corpuscular 31.2 Hemoglobin Mean Corpuscular 31.7 L Hemoglobin Concent Red Cell 13.1 Distribution Width Platelet Count 166 Mean Platelet Volume 9.1 Immature 0.200 Granulocytes % Neutrophils % 51.5 Lymphocytes % 37.4 Monocytes % 8.2 Eosinophils % 2.3 Basophils % 0.4 Nucleated Red Blood 0.0 Cells % Immature 0.010 Granulocytes # Neutrophils # 2.7 Lymphocytes # 2.0 Monocytes # 0.4 Eosinophils # 0.1 Basophils # 0.0 Nucleated Red Blood 0.0 Cells # Sodium Level 137 Potassium Level 5.0 Chloride Level 101 Carbon Dioxide Level 26 Anion Gap 10 Blood Urea Nitrogen 31 H Creatinine 1.53 H Est Glomerular Filtrat Rate mL/min Glucose Level 126 Calcium Level 8.9 Magnesium Level 1.4 L Total Bilirubin 0.6 Direct Bilirubin 0.00 Indirect Bilirubin 0.6 Aspartate Amino 18 Transf (AST/SGOT) Alanine 19 Aminotransferase (AL T/SGPT) Alkaline Phosphatase 72 Creatine Kinase 25 Creatine Kinase 2.3 Index Creatinine Kinase MB 0.58 (Mass) Troponin I 0.023 B-Type Natriuretic 76361 H Peptide Total Protein 6.2 Albumin 2.9 L Globulin 3.30 H Albumin/Globulin 0.87 Ratio Bedside Glucose 126 228 H Medications Medication Current Medications Acetaminophen (Tylenol Tab) 650 mg Q6H PRN PO MILD PAIN(1-3)OR ELEVATED TEMP Last administered on 10/20/18 11:38; Admin Dose 650 MG; Start 10/14/18 at 20:00 Albuterol/ Ipratropium (Duoneb) 3 ml Q2H RESP THERAPY PRN HHN SHORTNESS OF BREATH; Start 10/14/18 at 20:00 Amiodarone HCl (Cordarone) 200 mg BID PO Last administered on 10/21/18 09:35; Admin Dose 200 MG; Start 10/14/18 at 21:00 Apixaban (Eliquis) 2.5 mg BID PO Last administered on 10/21/18 09:35; Admin Dose 2.5 MG; Start 10/14/18 at 21:00 Aspirin (Aspirin) 81 mg DAILY PO Last administered on 10/21/18 09:35; Admin Dose 81 MG; Start 10/15/18 at 09:00 Atorvastatin Calcium (Lipitor) 80 mg HS PO Last administered on 10/20/18 20:55; Admin Dose 80 MG; Start 10/14/18 at 21:00 Bisacodyl (Dulcolax) 10 mg DAILY PRN PO CONSTIPATION Last administered on 10/19/18 10:16; Admin Dose 10 MG; Start 10/14/18 at 20:00 Docusate Sodium (Colace) 100 mg Q12 PRN PO CONSTIPATION; Start 10/14/18 at 20:00 Nitroglycerin (Nitroglycerin (Sl Tab) 0.4 Mg) 1 tab Q5M PRN SL ANGINA Last administered on 10/20/18 19:30; Admin Dose 1 TAB; Start 10/14/18 at 20:00 Silver Sulfadiazine (Thermazene 1% 25 Gm) 1 applic Q12 TOP Last administered on 10/20/18 20:56; Admin Dose 1 APPLIC; Start 10/14/18 at 21:00 Silver Sulfadiazine (Thermazene 1% 25 Gm) 1 applic NOTE PRN TOP NOTE; Start 10/14/18 at 20:00 Zolpidem Tartrate (Ambien) 5 mg HS PRN PO INSOMNIA; Start 10/14/18 at 20:00 Miscellaneous Information (Pending [facility] Order For Wound Care) This patient braun... PRN PRN XX WOUND CARE; Start 10/14/18 at 20:30 Diagnostic Test (Pha) (Accu-Chek) 1 ea AC MEALS AND BEDTIME XX Last administered on 10/21/18 08:04; Admin Dose 1 EA; Start 10/15/18 at 11:30 Eye Lubricant (Artificial Tears Oph) 2 drop BID PRN BOTH EYES DRY EYES Last administered on 10/20/18 21:56; Admin Dose 2 DROP; Start 10/15/18 at 11:00 Ondansetron HCl (Zofran Odt) 4 mg Q6H PRN ODT N/V Last administered on 10/20/18 08:15; Admin Dose 4 MG; Start 10/15/18 at 13:30 Isosorbide Mononitrate (Imdur) 30 mg DAILY PO Last administered on 10/17/18 09:16; Admin Dose 30 MG; Start 10/16/18 at 10:00 Insulin Aspart (Novolog Insulin Pen) NOVOLOG *MILD* ALGORITHM WITH MEALS BEDTIME SC Last administered on 10/20/18 17:43; Admin Dose 1 UNIT; Start 10/16/18 at 21:15 Miscellaneous Information 1 ea NOTE XX ; Start 10/16/18 at 21:30 Glucose (Glutose) 15 gm Q15M PRN PO DECREASED GLUCOSE; Start 10/16/18 at 21:30 Glucose (Glutose) 22.5 gm Q15M PRN PO DECREASED GLUCOSE; Start 10/16/18 at 21:30 Dextrose (D50w Syringe) 25 ml Q15M PRN IV DECREASED GLUCOSE; Start 10/16/18 at 21:30 Dextrose (D50w Syringe) 50 ml Q15M PRN IV DECREASED GLUCOSE; Start 10/16/18 at 21:30 Glucagon (Glucagen) 1 mg Q15M PRN IM DECREASED GLUCOSE; Start 10/16/18 at 21:30 Glucose (Glutose) 15 gm Q15M PRN BUCCAL DECREASED GLUCOSE; Start 10/16/18 at 21:30 Tramadol HCl (Ultram) 50 mg Q6H PRN PO MODERATE PAIN LEVEL 4-6; Start 10/18/18 at 04:30 Carvedilol (Coreg) 12.5 mg BID PO Last administered on 10/21/18at 08:45; Admin Dose 12.5 MG; Start 10/18/18 at 21:00 Hydralazine HCl (Apresoline) 100 mg Q12 PO Last administered on 10/21/18at 09:35; Admin Dose 50 MG; Start 10/18/18 at 21:00 BEKA HARPER MD Oct 21, 2018 12:41
[2018-10-21 14:15] VITALS: BP 111/61; PULSE 67; RESP 18
== END 2018-10-21 15:15 | disposition hospice, home (50) | DRG 91 ==
LOC: VRC 18:35
PROVIDERS: ADMIT Physical Medicine & Rehabilitation; ATTEND Internal Medicine Pulmonary Disease
DX: G72.81 Critical illness myopathy (principal); I21.3 ST elevation (STEMI) myocardial infarction of unspecified site; N17.9 Acute kidney failure, unspecified; N39.0 Urinary tract infection, site not specified; I13.0 Hypertensive heart and chronic kidney disease with heart failure and stage 1 through stage 4 chronic kidney disease, or unspecified chronic kidney disease; I42.9 Cardiomyopathy, unspecified; I50.42 Chronic combined systolic (congestive) and diastolic (congestive) heart failure; N18.3 Chronic kidney disease, stage 3 (moderate); I25.119 Atherosclerotic heart disease of native coronary artery with unspecified angina pectoris; Z95.1 Presence of aortocoronary bypass graft; I48.91 Unspecified atrial fibrillation; R53.81 Other malaise; E78.5 Hyperlipidemia, unspecified; E03.9 Hypothyroidism, unspecified; R13.10 Dysphagia, unspecified; Z74.09 Other reduced mobility; E11.22 Type 2 diabetes mellitus with diabetic chronic kidney disease; E11.51 Type 2 diabetes mellitus with diabetic peripheral angiopathy without gangrene; Z87.09 Personal history of other diseases of the respiratory system; D63.8 Anemia in other chronic diseases classified elsewhere
CPT/HCPCS: 80048; 80053; 81001; 82550; 82553; 82728; 82962; 83540; 83735; 83880; 84484; 85025; 87081; 87086; 92610; 93005; 97110; 97116; 97163; 97530; 97535; 97542; J1815; J2405

== ENCOUNTER 2018-11-17 13:35 | Inpatient (IN) | payer MEDICARE, OTHER ==
[~2018-11-17] VITALS: Ht 167.6 cm; Wt 70.7 kg
--- NOTE | 2018-11-17 13:42 | ERD ---
ER Documentation Chief Complaint Chief Complaint sob chest pressure HPI The patient is a 83-year-old female, presenting to the ER because of acute dyspnea, bilateral leg edema, acute substernal chest pressure that began the last couple days ago, worse today morning. She had similar symptoms previously, denies fever, chills, cough, neck pain, abdominal pain, vomiting, dizzy, diarrhea. She is not ambulatory, does not smoke Past medical history: Diabetes mellitus, hypertension, dyslipidemia, CAD, atrial fibrillation, hypothyroidism, chronic kidney disease, anemia, history of CHF Surgical history: None ROS All systems reviewed and are negative except as per history of present illness. Medications Home Meds Reported Medications Furosemide* (Lasix*) 20 Mg Tablet, 20 MG PO DAILY, TAB 11/17/18 Hydralazine Hcl* (Hydralazine Hcl*) 100 Mg Tablet, 100 MG PO Q12 PRN for ELEVATED BLOOD PRESSURE, #90 TAB 11/17/18 Isosorbide Mononitrate* (Isosorbide Mononitrate*) 30 Mg Tab.er.24h, 30 MG PO DAILY, TAB 11/17/18 Pantoprazole* (Protonix*) 40 Mg Tablet.dr, 40 MG PO DAILY, TAB 11/17/18 Ondansetron Hcl* (Zofran*) 4 Mg Tablet, 4 MG PO Q8 PRN for NAUSEA AND OR VOMITING, TAB 11/17/18 Sitagliptin* (Januvia*) 100 Mg Tablet, 100 MG PO DAILY, #30 TAB 11/17/18 Atorvastatin Calcium* (Atorvastatin Calcium*) 20 Mg Tablet, 20 MG PO QHS, #30 TAB 11/17/18 Apixaban* (Eliquis*) 2.5 Mg Tablet, 2.5 MG PO BID, TAB 11/17/18 Linaclotide (LINZESS) 145 Mcg Capsule, 145 MCG PO DAILY, #30 CAP 11/17/18 Amiodarone Hcl* (Amiodarone Hcl*) 200 Mg Tablet, 200 MG PO BID, #60 TAB 11/17/18 Discontinued Reported Medications Folic Acid* (Folic Acid*) 1 Mg Tablet, 1 MG PO DAILY, TAB 09/23/18 Aspirin* (Aspirin* EC) 81 Mg Tablet.dr, 81 MG PO DAILY, TAB 09/23/18 Discontinued Scripts Insulin Aspart* (Novolog Insulin Pen*) 100 Unit/Ml Soln, 0 UNIT SC AC MEALS AND BEDTIME for 30 Days Prov:ALEX HYLTON J 09/26/18 Spironolactone* (Aldactone*) 25 Mg Tablet, 25 MG PO DAILY for 30 Days, TAB Prov:ALEX HYLTON 09/26/18 Metoprolol Succinate* (Toprol XL*) 25 Mg Tab.sr.24h, 50 MG PO BID for 30 Days Prov:ALEX HYLTON J 09/26/18 Atorvastatin* (Atorvastatin*) 80 Mg Tablet, 80 MG PO HS for 30 Days, TAB Prov:ALEX HYLTON J 09/26/18 Amiodarone Hcl* (Amiodarone Hcl*) 200 Mg Tablet, 200 MG PO BID for 30 Days, TAB Prov:ALEX HYLTON J 09/26/18 Apixaban* (Eliquis*) 5 Mg Tablet, 5 MG PO BID for 30 Days, TAB Prov:ALEX HYLTON J 09/26/18 Allergies Allergies: Coded Allergies: No Known Allergy (Verified , 11/17/18) PMhx/Soc History of Surgery: Yes (see PT note) Anesthesia Reaction: No Hx Neurological Disorder: No Hx Respiratory Disorders: Yes (PNA; ACUTE HYPOXIC RESP FAILURE) Hx Cardiac Disorders: Yes (NSTEMI; CAD; HTN; HYPERLIPIDEMIA;CHRONIC A-FIB; CHF) Hx Psychiatric Problems: No Hx Miscellaneous Medical Probl: Yes (see PT note) Hx Alcohol Use: No Hx Substance Use: No Hx Tobacco Use: No Physical Exam Vitals Vital Signs Date Temp Pulse Resp B/P (MAP) Pulse Ox O2 O2 Flow FiO2 Time Delivery Rate 11/17/18 63 30 118/51 100 Nasal 2.0 16:30 (73) Cannula 11/17/18 60 22 103/73 99 Room Air 15:30 (83) 11/17/18 97.1 61 30 115/47 98 14:00 (69) Physical Exam Const: No acute distress. Head: Atraumatic. Eyes: Normal Conjunctiva. ENT: Normal External Ears, Nose and Mouth. Neck: Full range of motion. No meningismus. Resp: Bibasilar crackle Cardio: Irregularly irregular Abd: Soft, non distended, normal bowel sounds, non tender. Skin: No petechiae or rashes. Back: No midline or flank tenderness. Ext: Bilateral leg edema, no calf tenderness Neur: Awake and alert. No focal deficit. Limited due to her condition Psych: Normal Mood and Affect. Result Diagram: 11/17/18 1405 11/17/18 1405 Results 24 hrs Laboratory Tests Test 11/17/18 14:05 White Blood Count 7.7 10^3/ul Red Blood Count 2.71 10^6/ul Hemoglobin 8.5 g/dl Hematocrit 28.2 % Mean Corpuscular Volume 104.1 fl Mean Corpuscular Hemoglobin 31.4 pg Mean Corpuscular Hemoglobin Concent 30.1 g/dl Red Cell Distribution Width 17.4 % Platelet Count 415 10^3/UL Mean Platelet Volume 9.5 fl Immature Granulocytes % 0.400 % Neutrophils % 68.5 % Lymphocytes % 23.9 % Monocytes % 6.1 % Eosinophils % 0.8 % Basophils % 0.3 % Nucleated Red Blood Cells % 0.3 /100WBC Immature Granulocytes # 0.030 10^3/ul Neutrophils # 5.3 10^3/ul Lymphocytes # 1.8 10^3/ul Monocytes # 0.5 10^3/ul Eosinophils # 0.1 10^3/ul Basophils # 0.0 10^3/ul Nucleated Red Blood Cells # 0.0 10^3/ul Prothrombin Time 19.2 Sec Prothrombin Time Ratio 1.5 INR International Normalized Ratio 1.61 Activated Partial Thromboplast Time 30.8 Sec Sodium Level 136 mmol/L Potassium Level 5.3 mmol/L Chloride Level 98 mmol/L Carbon Dioxide Level 23 mmol/L Anion Gap 15 Blood Urea Nitrogen 59 mg/dl Creatinine 2.84 mg/dl Est Glomerular Filtrat Rate mL/min mL/min Glucose Level 245 mg/dl Calcium Level 9.1 mg/dl Troponin I 0.091 ng/ml B-Type Natriuretic Peptide 70875 PG/ML Current Medications Medications Dose Sig/Desiree Start Time Status Last (Trade) Ordered Route PRN Stop Time Admin Dose Reason Admin Furosemide 20 mg ONCE ONCE 11/17/18 DC 11/17/18 (Lasix) IV 15:30 15:32 11/17/18 15:31 Aspirin 162 mg ONCE ONCE 11/17/18 DC 11/17/18 (Aspirin) PO 15:30 15:32 11/17/18 15:31 Amiodarone 200 mg BID PO 11/17/18 UNV HCl 21:00 (Cordarone) Apixaban 2.5 mg BID PO 11/17/18 UNV (Eliquis) 21:00 20 mg QHS PO 11/17/18 UNV Atorvastatin 21:00 Calcium (Lipitor) Isosorbide 30 mg DAILY PO 11/18/18 UNV Mononitrate 09:00 (Imdur) 40 mg DAILY PO 11/18/18 UNV Pantoprazole 09:00 (Protonix Tab) 145 mcg DAILY PO 11/18/18 UNV Miscellaneous 09:00 Information IV Flush 3 ml PER 11/17/18 UNV (NS 3 ml) PROTOCOL IV 17:00 Ondansetron 4 mg Q6H PRN 11/17/18 UNV HCl (Zofran IV 17:00 Inj) NAUSEA/VOMITI NG 650 mg Q6H PRN 11/17/18 UNV Acetaminophen PO .PAIN 1-3 17:00 (Tylenol OR TEMP Tab) 1 tab Q6H PRN 11/17/18 UNV Acetaminophen PO .MOD PAIN 17:00 / 4-6 Hydrocodone Bitart ([place] (5/325)) Morphine 2 mg Q4H PRN 11/17/18 UNV Sulfate IV .SEVERE 17:00 (morphine) PAIN 7-10 Procedures/[place] [id number] Radiology Main Line: [phone] DIAGNOSTIC IMAGING REPORT Patient: BARBARA NUNEZ : 1935 Age: 83 Sex: F MR #: [id number] DOS: 11/17/18 1359 Ordering MD: MEG DUMAS MD Location: E/R Room/Bed: PROCEDURE: XR Chest. CLINICAL INDICATION: shortness of breath TECHNIQUE: Single portable view of the chest was obtained COMPARISON: SD DX CHEST 11/07/2018; SD CR CHEST 11/06/2018 FINDINGS: There is mild cardiomegaly. The thoracic aorta is calcified. There is mild pulmonary vascular congestion. There are bilateral perihilar and lower lobe increased interstitial changes. There are small bilateral pleural effusions. There is no pneumothorax. RPTAT: AA IMPRESSION: Mild cardiomegaly with pulmonary vascular congestion. Slightly more focal left lower lobe infiltrate. .Dionisio Roper MD, MD Date Time Electronically viewed and signed by .Dionisio Roper MD, MD on 11/17/2018 14:19 .S/ CC: MEG DUMAS MD [phone] EKG: Read by emergency physician Rate/Rhythm: Atrial fibrillation 58 beats/min QRS, ST, T-waves: No ST elevation, no T inversion, LBBB Impression: Abnormal EKG MEDICAL MAKING DECISION: The patient is a 83-year-old female, presenting with acute CHF exacerbation, acute chest pain, acute mild hyperkalemia. She was treated with aspirin 160 mg p.o. for acute chest pain and Lasix 20 mg IV for acute CHF exacerbation with good response The differential diagnoses considered include but are not limited to ACS, asthma, COPD, pneumonia, pulmonary embolus, pleural effusion, congestive heart failure. Departure Diagnosis: Primary Impression: CHF (congestive heart failure) Additional Impressions: Chest pain Hyperkalemia Anemia Condition: Stable Comments I discussed the findings with the patient. I discussed the patient with Dr Kim at 3:30p , who was made aware of the lab, the treatment, the patient condition. The patient is admitted to [facility] Disclaimer: Inadvertent spelling and grammatical errors are likely due to EHR/dictation software use and do not reflect on the overall quality of patient care. Also, please note that the electronic time recorded on this note does not necessarily reflect the actual time of the patient encounter. MEG DUMAS MD Nov 17, 2018 13:42
[2018-11-17 14:00] VITALS: Ht 167.6 cm; Wt 70.7 kg
[2018-11-17] MEDS ORDERED: AMIO200T4 PO (14:49)
[2018-11-17] MEDS ORDERED: ATOR20TA38 PO (14:50)
[2018-11-17] MEDS ORDERED: LINA145C PO (14:50)
[2018-11-17] MEDS ORDERED: APIX2.5T PO (14:50)
[2018-11-17] MEDS ORDERED: ONDA4TAB8 PO (14:51)
[2018-11-17] MEDS ORDERED: SITA100T11 PO (14:51)
[2018-11-17] MEDS ORDERED: HYDR100T25 PO (14:52)
[2018-11-17] MEDS ORDERED: PANT40TA3 PO (14:52)
[2018-11-17] MEDS ORDERED: ISOS30TA67 PO (14:52)
[2018-11-17] MEDS ORDERED: FURO-110 PO (14:53)
[2018-11-17] MEDS ORDERED: ASPIRIN 81 MG TAB PO ONE (15:30)
[2018-11-17] MEDS ORDERED: FUROSEMIDE 20 MG INJ IV ONE (15:30)
[2018-11-17] MEDS ORDERED: ONDANSETRON 4 MG INJ IV PRN (17:00)
[2018-11-17] MEDS ORDERED: NACL 0.9% 3 ML SYG IV SCH (17:00)
[2018-11-17] MEDS ORDERED: morphine 2 MG INJ IV PRN (17:00)
[2018-11-17] MEDS ORDERED: HYDROCODONE/APAP (5/325) TAB PO PRN (17:00)
[2018-11-17] MEDS ORDERED: ACETAMINOPHEN 325 MG TAB PO PRN (17:00)
[2018-11-17 19:45] VITALS: PULSE 66
[2018-11-17 20:00] VITALS: PULSE 65
[2018-11-17] MEDS: ATORVASTATIN 20 MG TAB PO SCH ×2 (20:12→20:17)
[2018-11-17 20:14] VITALS: BP 121/56; PULSE 60; RESP 19
[2018-11-17] MEDS: APIXABAN 5 MG TABLET PO SCH (22:51)
[2018-11-17] MEDS: AMIODARONE 200 MG TAB PO SCH (22:51)
--- NOTE | 2018-11-17 23:24 | HP ---
Date/Time of Note Date/Time of Note DATE: 11/17/18 TIME: 23:13 Assessment/Plan VTE Prophylaxis SCD contraindicated: low risk/ambulating Pharmacological prophylaxis: LMWH Lines/Catheters IV Catheter Type (from Nrsg): Saline Lock Urinary Cath still in place: No Assessment/Plan Hospital Course CC: chest pain [place] 83yr F w 3month of ftt, presents from home w lt pressure cp & dyspnea. 1 day duration? no cough, fever. sp cath at [facility] but unable to stent. Medically recommended cabg, but patient/ family were reluctant to proceed forward. Was not interested in Hospice because they dont provide catheters or assistance in adl's? ER vss/ SR PMH CAD HTN Ftt A Fib Dl CKD Pl Effusion PSH none SH lives w family; no tobacco/etoh FH noncontributory ROS no headache/ los/ loss of speech +cp. dyspnea. no edema +dyspnea. no edema, fever no abd pain, n/v no dysuria, hematuria, abd pain + Dm/ Dl. no ho hypothyroidism +ftt/ hasnt walked in 3months PE no pallor/ jvd; some wasting? reg s1s2; no mrg ctab; nt bs+ntnd no rrg no edema/ Homans A/P 1. ACS; failed medical management, refused cabg? will ask for 2nd cardio opinion. 2. Ftt; recomm DNR and to re consider hospice 3. P Afib 4. DM 5. Anemia 6. CKD; possibly worse Result Diagram: 11/17/18 1405 11/17/18 1405 Results 24hrs Laboratory Tests Test 11/17/18 14:05 11/17/18 21:05 White Blood Count 7.7 # Red Blood Count 2.71 L Hemoglobin 8.5 L Hematocrit 28.2 L Mean Corpuscular Volume 104.1 H Mean Corpuscular Hemoglobin 31.4 Mean Corpuscular Hemoglobin Concent 30.1 L Red Cell Distribution Width 17.4 #H Platelet Count 415 # Mean Platelet Volume 9.5 Immature Granulocytes % 0.400 Neutrophils % 68.5 Lymphocytes % 23.9 Monocytes % 6.1 Eosinophils % 0.8 Basophils % 0.3 Nucleated Red Blood Cells % 0.3 H Immature Granulocytes # 0.030 Neutrophils # 5.3 Lymphocytes # 1.8 Monocytes # 0.5 Eosinophils # 0.1 Basophils # 0.0 Nucleated Red Blood Cells # 0.0 Prothrombin Time 19.2 H Prothrombin Time Ratio 1.5 INR International Normalized Ratio 1.61 Activated Partial Thromboplast Time 30.8 Sodium Level 136 Potassium Level 5.3 H Chloride Level 98 Carbon Dioxide Level 23 Anion Gap 15 H Blood Urea Nitrogen 59 H Creatinine 2.84 H Est Glomerular Filtrat Rate mL/min Glucose Level 245 H Calcium Level 9.1 Troponin I 0.091 0.116 B-Type Natriuretic Peptide 39923 H Lipase 71 HPI/ROS Admit Date/Time Admit Date/Time Nov 17, 2018 at 15:38 PMH/Family/Social Past Medical History Medications Current Medications Amiodarone HCl (Cordarone) 200 mg BID PO Last administered on 11/17/18at 22:51; Admin Dose 200 MG; Start 11/17/18 at 21:00 Apixaban (Eliquis) 2.5 mg BID PO Last administered on 11/17/18at 22:51; Admin Dose 2.5 MG; Start 11/17/18 at 21:00 Atorvastatin Calcium (Lipitor) 20 mg QHS PO ; Start 11/17/18 at 21:00 Isosorbide Mononitrate (Imdur) 30 mg DAILY PO ; Start 11/18/18 at 09:00 Pantoprazole (Protonix Tab) 40 mg DAILY@0600 PO ; Start 11/18/18 at 06:00 Miscellaneous Information 145 mcg DAILY PO ; Start 11/18/18 at 09:00; Status UNV IV Flush (NS 3 ml) 3 ml PER PROTOCOL IV ; Start 11/17/18 at 17:00 Ondansetron HCl (Zofran Inj) 4 mg Q6H PRN IV NAUSEA/VOMITING; Start 11/17/18 at 17:00 Acetaminophen (Tylenol Tab) 650 mg Q6H PRN PO .PAIN 1-3 OR TEMP; Start 11/17/18 at 17:00 Acetaminophen/ Hydrocodone Bitart ([place] (5/325)) 1 tab Q6H PRN PO .MOD PAIN 4- 6; Start 11/17/18 at 17:00 Morphine Sulfate (morphine) 2 mg Q4H PRN IV .SEVERE PAIN 7-10; Start 11/17/18 at 17:00 Coded Allergies: No Known Allergy (Verified , 11/17/18) Past Surgical History Past Surgical Hx: no surgical history Family History Significant Family History: no pertinent family hx Social History Smoking Status: Never smoker Exam/Review of Systems Vital Signs Vitals Vital Signs Date Temp Pulse Resp B/P (MAP) Pulse Ox O2 O2 Flow FiO2 Time Delivery Rate 11/17/18 97.5 60 19 121/56 100 20:14 (77) 11/17/18 Room Air 19:15 11/17/18 2.0 18:00 REJI GASTELUM MD Nov 17, 2018 23:23
[2018-11-18] VITALS (19 sets, daily range): BP systolic 87–141; BP diastolic 51–63; PULSE 50–70; RESP 18–28
[2018-11-18] MEDS ORDERED: DOCUSATE SODIUM 100 MG CAP PO PRN
[2018-11-18] MEDS ORDERED: PENDING SANTYL ORDER FOR WOUND CARE XX PRN (00:30)
[2018-11-18] MEDS: PANTOPRAZOLE (EC) 40 MG TAB PO SCH (05:44)
[2018-11-18] MEDS ORDERED: NON-FORMULARY/PATIENT OWN MED (Linaclotide (Linzess) 145 MCG) PO SCH (09:00)
[2018-11-18] MEDS: ISOSORBIDE MONONITRATE(SR)30 MG TAB PO SCH (09:00)
[2018-11-18] MEDS: APIXABAN 5 MG TABLET PO SCH ×2 (09:57→21:14)
[2018-11-18] MEDS: AMIODARONE 200 MG TAB PO SCH ×2 (09:58→21:15)
--- NOTE | 2018-11-18 16:55 | PN ---
Date/Time of Note Date/Time of Note DATE: 11/18/18 TIME: 16:52 Assessment/Plan VTE Prophylaxis Risk score (from Nsg)>0 risk: 8 SCD applied (from Ns): No SCD contraindicated: low risk/ambulating Pharmacological prophylaxis: LMWH Lines/Catheters IV Catheter Type (from Nrsg): Saline Lock Urinary Cath still in place: Yes Reason Cath still needed: terminal illness/intractable pain Assessment/Plan Hospital Course A/P 1. ACS; failed medical management, refused cabg. 2. Ftt; recomm DNR and to re consider hospice; agrees to Hospice eval. 3. P Afib 4. DM 5. Anemia 6. CKD; possibly worse 7. HTN 8. Dl 9. Pl Effusion 10. MR++ / + PE no pallor/ jvd; some wasting? reg s1s2; no mrg ctab; nt bs+nt nd no rrg no edema/ Homans Result Diagram: 11/18/18 0507 11/18/18 0507 Results 24hrs Laboratory Tests Test 11/17/18 21:05 11/18/18 05:07 11/18/18 11:54 Troponin I 0.116 0.121 H Lipase 71 White Blood Count 7.3 Red Blood Count 2.64 L Hemoglobin 8.3 L Hematocrit 27.3 L Mean Corpuscular Volume 103.4 H Mean Corpuscular Hemoglobin 31.4 Mean Corpuscular Hemoglobin Concent 30.4 L Red Cell Distribution Width 17.2 H Platelet Count 354 Mean Platelet Volume 9.8 Immature Granulocytes % 0.700 H Neutrophils % 67.1 Lymphocytes % 24.8 Monocytes % 6.0 Eosinophils % 1.0 Basophils % 0.4 Nucleated Red Blood Cells % 0.0 Immature Granulocytes # 0.050 H Neutrophils # 4.9 Lymphocytes # 1.8 Monocytes # 0.4 Eosinophils # 0.1 Basophils # 0.0 Nucleated Red Blood Cells # 0.0 Sodium Level 140 Potassium Level 5.0 Chloride Level 104 Carbon Dioxide Level 26 Anion Gap 10 # Blood Urea Nitrogen 65 H Creatinine 3.20 H Est Glomerular Filtrat Rate mL/min Glucose Level 141 # Hemoglobin A1c 6.2 H Calcium Level 9.2 Phosphorus Level 6.2 H Magnesium Level 2.4 Total Bilirubin 0.4 Direct Bilirubin 0.00 Indirect Bilirubin 0.4 Aspartate Amino Transf (AST/SGOT) 22 Alanine Aminotransferase (ALT/SGPT) 25 Alkaline Phosphatase 90 Total Protein 6.9 Albumin 3.1 L Globulin 3.80 H Albumin/Globulin Ratio 0.81 Triglycerides Level 163 H Cholesterol Level 111 LDL Cholesterol, Calculated 56 HDL Cholesterol 22 L Cholesterol/HDL Ratio 5.0 Thyroid Stimulating Hormone (TSH) 15.800 H Bedside Glucose 193 Exam/Review of Systems Exam Vitals Vital Signs Date Temp Pulse Resp B/P (MAP) Pulse Ox O2 O2 Flow FiO2 Time Delivery Rate 11/18/18 87/52 (64) 15:15 11/18/18 97.8 67 22 100 Nasal 15:14 Cannula 11/18/18 3.0 13:53 Intake and Output 11/17/18 11/17/18 11/18/18 1515:00 23:00 07:00 IntakeIntake Total 180 ml OutputOutput Total 70 ml BalanceBalance 110 ml Results Results 24hrs Laboratory Tests Test 11/17/18 21:05 11/18/18 05:07 11/18/18 11:54 Troponin I 0.116 0.121 H Lipase 71 White Blood Count 7.3 Red Blood Count 2.64 L Hemoglobin 8.3 L Hematocrit 27.3 L Mean Corpuscular Volume 103.4 H Mean Corpuscular Hemoglobin 31.4 Mean Corpuscular Hemoglobin Concent 30.4 L Red Cell Distribution Width 17.2 H Platelet Count 354 Mean Platelet Volume 9.8 Immature Granulocytes % 0.700 H Neutrophils % 67.1 Lymphocytes % 24.8 Monocytes % 6.0 Eosinophils % 1.0 Basophils % 0.4 Nucleated Red Blood Cells % 0.0 Immature Granulocytes # 0.050 H Neutrophils # 4.9 Lymphocytes # 1.8 Monocytes # 0.4 Eosinophils # 0.1 Basophils # 0.0 Nucleated Red Blood Cells # 0.0 Sodium Level 140 Potassium Level 5.0 Chloride Level 104 Carbon Dioxide Level 26 Anion Gap 10 # Blood Urea Nitrogen 65 H Creatinine 3.20 H Est Glomerular Filtrat Rate mL/min Glucose Level 141 # Hemoglobin A1c 6.2 H Calcium Level 9.2 Phosphorus Level 6.2 H Magnesium Level 2.4 Total Bilirubin 0.4 Direct Bilirubin 0.00 Indirect Bilirubin 0.4 Aspartate Amino Transf (AST/SGOT) 22 Alanine Aminotransferase (ALT/SGPT) 25 Alkaline Phosphatase 90 Total Protein 6.9 Albumin 3.1 L Globulin 3.80 H Albumin/Globulin Ratio 0.81 Triglycerides Level 163 H Cholesterol Level 111 LDL Cholesterol, Calculated 56 HDL Cholesterol 22 L Cholesterol/HDL Ratio 5.0 Thyroid Stimulating Hormone (TSH) 15.800 H Bedside Glucose 193 Medications Medication Current Medications Amiodarone HCl (Cordarone) 200 mg BID PO Last administered on 11/18/18at 09:58; Admin Dose 200 MG; Start 11/17/18 at 21:00 Apixaban (Eliquis) 2.5 mg BID PO Last administered on 11/18/18at 09:57; Admin D ose 2.5 MG; Start 11/17/18 at 21:00 Atorvastatin Calcium (Lipitor) 20 mg QHS PO ; Start 11/17/18 at 21:00 Isosorbide Mononitrate (Imdur) 30 mg DAILY PO ; Start 11/18/18 at 09:00 Pantoprazole (Protonix Tab) 40 mg DAILY@0600 PO Last administered on 11/18/18at 05:44; Admin Dose 40 MG; Start 11/18/18 at 06:00 Miscellaneous Information 145 mcg DAILY PO ; Start 11/18/18 at 09:00; Status UNV IV Flush (NS 3 ml) 3 ml PER PROTOCOL IV ; Start 11/17/18 at 17:00 Ondansetron HCl (Zofran Inj) 4 mg Q6H PRN IV NAUSEA/VOMITING; Start 11/17/18 at 17:00 Acetaminophen (Tylenol Tab) 650 mg Q6H PRN PO .PAIN 1-3 OR TEMP; Start 11/17/18 at 17:00 Acetaminophen/ Hydrocodone Bitart ([place] (5/325)) 1 tab Q6H PRN PO .MOD PAIN 4- 6; Start 11/17/18 at 17:00 Morphine Sulfate (morphine) 2 mg Q4H PRN IV .SEVERE PAIN 7-10; Start 11/17/18 at 17:00 Docusate Sodium (Colace) 100 mg BID PRN PO CONSTIPATION; Start 11/18/18 at 00:00 [facility] This patient braun... PRN PRN XX WOUND CARE; Start 11/18/18 at 00:30 REJI GASTELUM MD Nov 18, 2018 16:55
[2018-11-18] MEDS ORDERED: FUROSEMIDE 20 MG INJ IV ONE (17:00)
[2018-11-18] MEDS ORDERED: GLUCOSE GEL 15 GRAM TUBE PO PRN ×2 (18:00)
[2018-11-18] MEDS ORDERED: GLUCAGON 1 MG INJ IM PRN (18:00)
[2018-11-18] MEDS ORDERED: GLUCOSE GEL 15 GRAM TUBE BUCCAL PRN (18:00)
[2018-11-18] MEDS ORDERED: DEXTROSE 50% 50 ML SYRINGE IV PRN ×2 (18:00)
[2018-11-18] MEDS: INSULIN ASPART [NOVOLOG] 3 ML PEN SC SCH ×2 (19:59→21:00)
[2018-11-18] MEDS: ATORVASTATIN 20 MG TAB PO SCH (21:00)
[2018-11-19] VITALS (21 sets, daily range): BP systolic 90–143; BP diastolic 53–67; PULSE 59–80; RESP 20–22
[2018-11-19] MEDS: ACCU-CHEK XX SCH (03:00)
[2018-11-19] MEDS: LEVOTHYROXINE 25 MCG TAB PO SCH (06:40)
[2018-11-19] MEDS: PANTOPRAZOLE (EC) 40 MG TAB PO SCH (06:40)
[2018-11-19] MEDS: INSULIN ASPART [NOVOLOG] 3 ML PEN SC SCH ×5 (07:27→20:57)
[2018-11-19] MEDS: AMIODARONE 200 MG TAB PO SCH ×2 (08:14→20:58)
[2018-11-19] MEDS: ISOSORBIDE MONONITRATE(SR)30 MG TAB PO SCH (08:14)
[2018-11-19] MEDS: APIXABAN 5 MG TABLET PO SCH ×2 (11:43→20:58)
--- NOTE | 2018-11-19 14:15 | PN ---
Date/Time of Note Date/Time of Note DATE: 11/19/18 TIME: 14:13 Assessment/Plan VTE Prophylaxis Risk score (from Nsg)>0 risk: 8 SCD applied (from Ns): No SCD contraindicated: low risk/ambulating Pharmacological prophylaxis: LMWH Lines/Catheters IV Catheter Type (from Nrsg): Saline Lock Urinary Cath still in place: Yes Reason Cath still needed: terminal illness/intractable pain Assessment/Plan Hospital Course A/P 1. ACS; failed medical management, refused cabg. recommend hospice 2. Ftt; agrees to DNR and to re- consider hospice; [facility] called in. 3. P Afib 4. DM 5. Anemia 6. CKD; likely worse 7. HTN 8. Dl 9. 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 Nonadherence, recommend hospice due to poor prognosis 12. Multiorgan failure S: 11/19 fatigue possible pulmonary distress. Family requested BiPAP. Patient and family refused to have blood sugar eval and repositioning. Unfortunately cannot monitor and prevent further comorbidities. Recommend full hospice care. PE no pallor/ jvd; some wasting? reg s1s2; no mrg ctab; nt bs+nt nd no rrg no edema/ Homans Result Diagram: 11/18/18 0507 11/18/18 0507 Results 24hrs Laboratory Tests Test 11/18/18 17:59 11/18/18 19:39 11/18/18 19:54 11/19/18 03:10 Bedside Glucose 227 H 299 H 141 Magnesium Level 2.4 Troponin I 0.081 B-Type Natriuretic 72472 H Peptide Test 11/19/18 07:24 11/19/18 11:41 Bedside Glucose 152 155 Exam/Review of Systems Exam Vitals Vital Signs Date Temp Pulse Resp B/P (MAP) Pulse Ox O2 O2 Flow FiO2 Time Delivery Rate 11/19/18 67 12:23 11/19/18 97.8 20 137/62 98 11:44 (87) 11/19/18 40 09:00 11/19/18 4.0 03:15 11/18/18 Nasal 20:00 Cannula Intake and Output 11/18/18 11/18/18 11/19/18 1515:00 23:00 07:00 IntakeIntake Total 300 ml 240 ml OutputOutput Total 100 ml 400 ml BalanceBalance 200 ml -160 ml Results Results 24hrs Laboratory Tests Test 11/18/18 17:59 11/18/18 19:39 11/18/18 19:54 11/19/18 03:10 Bedside Glucose 227 H 299 H 141 Magnesium Level 2.4 Troponin I 0.081 B-Type Natriuretic 52497 H Peptide Test 11/19/18 07:24 11/19/18 11:41 Bedside Glucose 152 155 Medications Medication Current Medications Amiodarone HCl (Cordarone) 200 mg BID PO Last administered on 11/18/18at 21:15; Admin Dose 200 MG; Start 11/17/18 at 21:00 Apixaban (Eliquis) 2.5 mg BID PO Last administered on 11/19/18at 11:43; Admin Dose 2.5 MG; Start 11/17/18 at 21:00 Atorvastatin Calcium (Lipitor) 20 mg QHS PO ; Start 11/17/18 at 21:00 Isosorbide Mononitrate (Imdur) 30 mg DAILY PO ; Start 11/18/18 at 09:00 Pantoprazole (Protonix Tab) 40 mg DAILY@0600 PO Last administered on 11/19/18at 06:40; Admin Dose 40 MG; Start 11/18/18 at 06:00 Miscellaneous Information 145 mcg DAILY PO ; Start 11/18/18 at 09:00; Status UNV IV Flush (NS 3 ml) 3 ml PER PROTOCOL IV ; Start 11/17/18 at 17:00 Ondansetron HCl (Zofran Inj) 4 mg Q6H PRN IV NAUSEA/VOMITING Last administered on 11/18/18at 17:56; Admin Dose 4 MG; Start 11/17/18 at 17:00 Acetaminophen (Tylenol Tab) 650 mg Q6H PRN PO .PAIN 1-3 OR TEMP; Start 11/17/18 at 17:00 Acetaminophen/ Hydrocodone Bitart ([place] (5/325)) 1 tab Q6H PRN PO .MOD PAIN 4- 6; Start 11/17/18 at 17:00 Morphine Sulfate (morphine) 2 mg Q4H PRN IV .SEVERE PAIN 7-10; Start 11/17/18 at 17:00 Docusate Sodium (Colace) 100 mg BID PRN PO CONSTIPATION; Start 11/18/18 at 00:00 Miscellaneous Information (Pending Santyl Order For Wound Care) This patient braun... PRN PRN XX WOUND CARE; Start 11/18/18 at 00:30 Diagnostic Test (Pha) (Accu-Chek) 1 ea 02 XX Last administered on 11/19/18at 03:00; Admin Dose 1 EA; Start 11/19/18 at 02:00 Insulin Aspart (Novolog Insulin Pen) NOVOLOG *MILD* ALGORITHM WITH MEALS BEDTIME SC Last administered on 11/18/18at 19:59; Admin Dose 4 UNIT; Start 11/18/18 at 18:30 Levothyroxine Sodium (Synthroid) 12.5 mcg DAILY@06 PO Last administered on 11/19/18at 06:40; Admin Dose 12.5 MCG; Start 11/19/18 at 06:00 Miscellaneous Information 1 ea NOTE XX ; Start 11/18/18 at 18:00 Glucose (Glutose) 15 gm Q15M PRN PO DECREASED GLUCOSE; Start 11/18/18 at 18:00 Glucose (Glutose) 22.5 gm Q15M PRN PO DECREASED GLUCOSE; Start 11/18/18 at 1 8:00 Dextrose (D50w Syringe) 25 ml Q15M PRN IV DECREASED GLUCOSE; Start 11/18/18 at 18:00 Dextrose (D50w Syringe) 50 ml Q15M PRN IV DECREASED GLUCOSE; Start 11/18/18 at 18:00 Glucagon (Glucagen) 1 mg Q15M PRN IM DECREASED GLUCOSE; Start 11/18/18 at 18:00 Glucose (Glutose) 15 gm Q15M PRN BUCCAL DECREASED GLUCOSE; Start 11/18/18 at 18:00 REJI GASTELUM MD Nov 19, 2018 14:15
[2018-11-19] MEDS ORDERED: BISACODYL 10 MG SUPP PR PRN (14:30)
[2018-11-19] MEDS ORDERED: BISACODYL (EC) 5 MG TAB PO PRN (14:30)
[2018-11-19] MEDS: ATORVASTATIN 20 MG TAB PO SCH (20:58)
[2018-11-20] VITALS (22 sets, daily range): BP systolic 82–143; BP diastolic 51–65; PULSE 60–80; RESP 16–18
[2018-11-20] MEDS: ACCU-CHEK XX SCH (02:00)
[2018-11-20] MEDS: LEVOTHYROXINE 25 MCG TAB PO SCH (06:27)
[2018-11-20] MEDS: PANTOPRAZOLE (EC) 40 MG TAB PO SCH (06:27)
[2018-11-20] MEDS: INSULIN ASPART [NOVOLOG] 3 ML PEN SC SCH ×4 (08:00→21:00)
[2018-11-20] MEDS: APIXABAN 5 MG TABLET PO SCH ×2 (08:49→21:00)
[2018-11-20] MEDS: AMIODARONE 200 MG TAB PO SCH ×2 (08:50→21:01)
[2018-11-20] MEDS: ISOSORBIDE MONONITRATE(SR)30 MG TAB PO SCH (08:51)
--- NOTE | 2018-11-20 14:34 | PN ---
Date/Time of Note Date/Time of Note DATE: 11/20/18 TIME: 14:32 Assessment/Plan VTE Prophylaxis Risk score (from Nsg)>0 risk: 6 SCD applied (from Nsg): Yes SCD contraindicated: low risk/ambulating Pharmacological prophylaxis: LMWH Lines/Catheters IV Catheter Type (from Nrsg): Saline Lock Urinary Cath still in place: Yes Reason Cath still needed: terminal illness/intractable pain Assessment/Plan Hospital Course A/P 1. ACS; failed medical management, refused cabg. recommended hospice 2. Ftt; agrees to DNR and to re- consider hospice; Safia spoke with patient and family. 3. P Afib 4. DM 5. Anemia 6. CKD; likely worse 7. HTN 8. Dl 9. 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 Nonadherence, recommend hospice due to poor prognosis 12. Multiorgan failure S: 11/19 fatigue possible pulmonary distress. Family requested BiPAP. Patient and family refused to have blood sugar eval and repositioning. Unfortunately cannot monitor and prevent further comorbidities. Recommend full hospice care. 11/20 chest pain dyspnea wants BiPAP. Refused end-of-life medications such as morphine. Wants to take her blood pressure medicines. I spoke with multiple family members yesterday and other family members today regarding the philosophy of hospice; In terms of trying to avoid prolonging period of suffering/treating multiple medical issues that will not change her outcome or morbidities. We will asked that they reconsider hospice. If not home with BiPAP over the weekend PE no pallor/ jvd; some wasting? reg s1s2; no mrg ctab; nt bs+nt nd no rrg no edema/ Homans Result Diagram: 11/20/18 0541 11/20/18 0541 Results 24hrs Laboratory Tests Test 11/19/18 16:38 11/19/18 20:56 11/20/18 05:41 11/20/18 08:05 Bedside Glucose 148 154 141 White Blood Count 6.8 Red Blood Count 2.72 L Hemoglobin 8.3 L Hematocrit 28.2 L Mean Corpuscular 103.7 H Volume Mean Corpuscular 30.5 Hemoglobin Mean Corpuscular 29.4 L Hemoglobin Concent Red Cell 17.4 H Distribution Width Platelet Count 358 Mean Platelet Volume 9.6 Immature 0.700 H Granulocytes % Neutrophils % 70.5 Lymphocytes % 20.5 Monocytes % 6.4 Eosinophils % 1.6 Basophils % 0.3 Nucleated Red Blood 0.0 Cells % Immature 0.050 H Granulocytes # Neutrophils # 4.8 Lymphocytes # 1.4 Monocytes # 0.4 Eosinophils # 0.1 Basophils # 0.0 Nucleated Red Blood 0.0 Cells # Sodium Level 141 Potassium Level 4.0 Chloride Level 105 Carbon Dioxide Level 27 Anion Gap 9 Blood Urea Nitrogen 62 H Creatinine 2.47 H Est Glomerular Filtrat Rate mL/min Glucose Level 130 Calcium Level 9.0 Total Bilirubin 0.3 Direct Bilirubin 0.00 Indirect Bilirubin 0.3 Aspartate Amino 20 Transf (AST/SGOT) Alanine 30 Aminotransferase (AL T/SGPT) Alkaline Phosphatase 100 Total Protein 6.6 Albumin 2.9 L Globulin 3.70 H Albumin/Globulin 0.78 Ratio Test 11/20/18 11:53 Bedside Glucose 139 Exam/Review of Systems Exam Vitals Vital Signs Date Temp Pulse Resp B/P (MAP) Pulse Ox O2 O2 Flow FiO2 Time Delivery Rate 11/20/18 72 12:18 11/20/18 99 40 12:14 11/20/18 98.1 18 132/63 BIPAP 11:13 (86) 11/20/18 4.0 08:00 Intake and Output 11/19/18 11/19/18 11/20/18 1515:00 23:00 07:00 IntakeIntake Total 350 ml 300 ml OutputOutput Total 200 ml 400 ml BalanceBalance 150 ml -100 ml Results Results 24hrs Laboratory Tests Test 11/19/18 16:38 11/19/18 20:56 11/20/18 05:41 11/20/18 08:05 Bedside Glucose 148 154 141 White Blood Count 6.8 Red Blood Count 2.72 L Hemoglobin 8.3 L Hematocrit 28.2 L Mean Corpuscular 103.7 H Volume Mean Corpuscular 30.5 Hemoglobin Mean Corpuscular 29.4 L Hemoglobin Concent Red Cell 17.4 H Distribution Width Platelet Count 358 Mean Platelet Volume 9.6 Immature 0.700 H Granulocytes % Neutrophils % 70.5 Lymphocytes % 20.5 Monocytes % 6.4 Eosinophils % 1.6 Basophils % 0.3 Nucleated Red Blood 0.0 Cells % Immature 0.050 H Granulocytes # Neutrophils # 4.8 Lymphocytes # 1.4 Monocytes # 0.4 Eosinophils # 0.1 Basophils # 0.0 Nucleated Red Blood 0.0 Cells # Sodium Level 141 Potassium Level 4.0 Chloride Level 105 Carbon Dioxide Level 27 Anion Gap 9 Blood Urea Nitrogen 62 H Creatinine 2.47 H Est Glomerular Filtrat Rate mL/min Glucose Level 130 Calcium Level 9.0 Total Bilirubin 0.3 Direct Bilirubin 0.00 Indirect Bilirubin 0.3 Aspartate Amino 20 Transf (AST/SGOT) Alanine 30 Aminotransferase (AL T/SGPT) Alkaline Phosphatase 100 Total Protein 6.6 Albumin 2.9 L Globulin 3.70 H Albumin/Globulin 0.78 Ratio Test 11/20/18 11:53 Bedside Glucose 139 Medications Medication Current Medications Amiodarone HCl (Cordarone) 200 mg BID PO Last administered on 11/20/18 08:50; Admin Dose 200 MG; Start 11/17/18 at 21:00 Apixaban (Eliquis) 2.5 mg BID PO Last administered on 11/20/18 08:49; Admin Dose 2.5 MG; Start 11/17/18 at 21:00 Atorvastatin Calcium (Lipitor) 20 mg QHS PO Last administered on 11/19/18at 20:58; Admin Dose 20 MG; Start 11/17/18 at 21:00 Isosorbide Mononitrate (Imdur) 30 mg DAILY PO Last administered on 11/20/18 08 :51; Admin Dose 30 MG; Start 11/18/18 at 09:00 Pantoprazole (Protonix Tab) 40 mg DAILY@0600 PO Last administered on 11/20/18 06:27; Admin Dose 40 MG; Start 11/18/18 at 06:00 Miscellaneous Information 145 mcg DAILY PO ; Start 11/18/18 at 09:00; Status UNV IV Flush (NS 3 ml) 3 ml PER PROTOCOL IV ; Start 11/17/18 at 17:00 Ondansetron HCl (Zofran Inj) 4 mg Q6H PRN IV NAUSEA/VOMITING Last administered on 11/18/18at 17:56; Admin Dose 4 MG; Start 11/17/18 at 17:00 Acetaminophen (Tylenol Tab) 650 mg Q6H PRN PO .PAIN 1-3 OR TEMP; Start 11/17/18 at 17:00 Acetaminophen/ Hydrocodone Bitart ([place] (5/325)) 1 tab Q6H PRN PO .MOD PAIN 4- 6; Start 11/17/18 at 17:00 Morphine Sulfate (morphine) 2 mg Q4H PRN IV .SEVERE PAIN 7-10; Start 11/17/18 at 17:00 Docusate Sodium (Colace) 100 mg BID PRN PO CONSTIPATION; Start 11/18/18 at 00:00 Miscellaneous Information (Pending Santyl Order For Wound Care) This patient braun... PRN PRN XX WOUND CARE; Start 11/18/18 at 00:30 Diagnostic Test (Pha) (Accu-Chek) 1 ea 02 XX Last administered on 11/19/18at 03:00; Admin Dose 1 EA; Start 11/19/18 at 02:00 Insulin Aspart (Novolog Insulin Pen) NOVOLOG *MILD* ALGORITHM WITH MEALS BEDTIME SC Last administered on 11/18/18at 19:59; Admin Dose 4 UNIT; Start 11/18/18 at 18:30 Levothyroxine Sodium (Synthroid) 12.5 mcg DAILY@06 PO Last administered on 11/20/18at 06:27; Admin Dose 12.5 MCG; Start 11/19/18 at 06:00 Miscellaneous Information 1 ea NOTE XX ; Start 11/18/18 at 18:00 Glucose (Glutose) 15 gm Q15M PRN PO DECREASED GLUCOSE; Start 11/18/18 at 18:00 Glucose (Glutose) 22.5 gm Q15M PRN PO DECREASED GLUCOSE; Start 11/18/18 at 18:00 Dextrose (D50w Syringe) 25 ml Q15M PRN IV DECREASED GLUCOSE; Start 11/18/18 at 18:00 Dextrose (D50w Syringe) 50 ml Q15M PRN IV DECREASED GLUCOSE; Start 11/18/18 at 18:00 Glucagon (Glucagen) 1 mg Q15M PRN IM DECREASED GLUCOSE; Start 11/18/18 at 18:00 Glucose (Glutose) 15 gm Q15M PRN BUCCAL DECREASED GLUCOSE; Start 11/18/18 at 18:00 Bisacodyl (Dulcolax Supp) 10 mg Q48H PRN [place] CONSTIPATION; Start 11/19/18 at 14:30 Bisacodyl (Dulcolax) 10 mg DAILY PRN PO CONSTIPATION; Start 11/19/18 at 14:30 REJI GASTELUM MD Nov 20, 2018 14:34
[2018-11-20] MEDS ORDERED: FUROSEMIDE 40 MG INJ IV SCH ×2 (15:00→22:00)
--- NOTE | 2018-11-20 15:57 | RADRPT ---
Vent Rate: 67 bpm RR Interval: 0 msec MA Interval: 256 msec QRS Duration: 182 msec QT Interval: 494 msec QTC Interval: 521 msec P-R-T [place]: 48 - 0 - 0 degrees Sinus rhythm with 1st degree AV block Left bundle branch block Abnormal ECG Electronically Signed By: Rex Martinez
[2018-11-20] MEDS: ATORVASTATIN 20 MG TAB PO SCH (21:01)
[2018-11-21] VITALS (18 sets, daily range): BP systolic 125–144; BP diastolic 60–72; PULSE 5–75; RESP 16–20
[2018-11-21] MEDS: ACCU-CHEK XX SCH (02:00)
[2018-11-21] MEDS: LEVOTHYROXINE 25 MCG TAB PO SCH (06:07)
[2018-11-21] MEDS: PANTOPRAZOLE (EC) 40 MG TAB PO SCH (06:07)
[2018-11-21] MEDS: INSULIN ASPART [NOVOLOG] 3 ML PEN SC SCH ×4 (08:00→21:00)
[2018-11-21] MEDS: SENNA/DOCUSATE NA (8.6MG/50MG) TAB PO SCH (08:17)
[2018-11-21] MEDS: APIXABAN 5 MG TABLET PO SCH ×2 (08:17→21:45)
[2018-11-21] MEDS: AMIODARONE 200 MG TAB PO SCH ×2 (08:18→21:47)
[2018-11-21] MEDS: ISOSORBIDE MONONITRATE(SR)60 MG TAB PO SCH (08:18)
[2018-11-21] MEDS: [UNRECOGNIZED DRUG - OTHER] XX SCH ×2 (14:00→22:00)
[2018-11-21] MEDS: LINACLOTIDE 145 MCG XX SCH ×2 (14:00→22:00)
[2018-11-21] MEDS ORDERED: LACTULOSE 30ML CUP PO ONE (16:30)
[2018-11-21] MEDS: POLYETHYLENE GLYCOL 17 GM PACKET PO SCH ×2 (17:32→21:00)
[2018-11-21] MEDS: FUROSEMIDE 20 MG TAB PO SCH (17:32)
--- NOTE | 2018-11-21 17:42 | PN ---
Date/Time of Note Date/Time of Note DATE: 11/21/18 TIME: 17:38 Assessment/Plan VTE Prophylaxis Risk score (from Nsg)>0 risk: 9 SCD applied (from Nsg): Yes SCD contraindicated: low risk/ambulating Pharmacological prophylaxis: LMWH Lines/Catheters IV Catheter Type (from Nrsg): Saline Lock Urinary Cath still in place: Yes Reason Cath still needed: terminal illness/intractable pain Assessment/Plan Hospital Course A/P 1. ACS; failed medical management, refused cabg. recommended hospice due to intermittent angina dyspnea and poor performance status. Out-of-town family and in town family to discuss options tomorrow and speak with [facility] if they agree for hospice care 2. Ftt; agrees to DNR. Likely home with home health safety tomorrow. BiPAP would probably be an [id number] expense. 3. P Afib 4. DM 5. Anemia 6. CKD; likely worse 7. HTN 8. Dl 9. 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 Nonadherence, refused to be repositioned and turned. Bed ulcer risk present. recommend hospice due to poor prognosis 12. Multiorgan failure 13. Constipation S: 11/19 fatigue possible pulmonary distress. Family requested BiPAP. Patient and family refused to have blood sugar eval and repositioning. Unfortunately cannot monitor and prevent further comorbidities. Recommend full hospice care. 11/20 chest pain dyspnea wants BiPAP. Refused end-of-life medications such as morphine. Wants to take her blood pressure medicines. I spoke with multiple family members yesterday and other family members today regarding the philosophy of hospice; In terms of trying to avoid prolonging period of suffering/treating multiple medical issues that will not change her outcome or morbidities. We will asked that they reconsider hospice. If not home with BiPAP over the weekend 11/21: No distress fairly stable. No arrhythmias. With this in mind I doubt that patient and family will agree with hospice tomorrow, especially that for the fact that she is not in severe pain. They are aware of relapses recurrences and progression of disease. However I think tomorrow the plan is home with home care. May need transportation home and BiPAP at their expense likely. However I do recommend hospice as the primary option. Objective: Vital signs stable sinus PE no pallor/ jvd; some wasting? reg s1s2; no mrg ctab; nt bs+nt nd no rrg no edema/ Homans Result Diagram: 11/21/18 0945 11/21/18 0945 Results 24hrs Laboratory Tests Test 11/20/18 21:07 11/21/18 07:47 11/21/18 09:45 11/21/18 11:48 Bedside Glucose 168 136 205 White Blood Count 5.9 Red Blood Count 2.73 L Hemoglobin 8.5 L Hematocrit 28.2 L Mean Corpuscular 103.3 H Volume Mean Corpuscular 31.1 Hemoglobin Mean Corpuscular 30.1 L Hemoglobin Concent Red Cell 17.5 H Distribution Width Platelet Count 327 Mean Platelet Volume 9.0 Immature 0.700 H Granulocytes % Neutrophils % 73.2 Lymphocytes % 17.5 Monocytes % 6.6 Eosinophils % 1.7 Basophils % 0.3 Nucleated Red Blood 0.0 Cells % Immature 0.040 H Granulocytes # Neutrophils # 4.3 Lymphocytes # 1.0 Monocytes # 0.4 Eosinophils # 0.1 Basophils # 0.0 Nucleated Red Blood 0.0 Cells # Sodium Level 141 Potassium Level 3.5 Chloride Level 102 Carbon Dioxide Level 31 Anion Gap 8 Blood Urea Nitrogen 48 #H Creatinine 1.79 H Est Glomerular Filtrat Rate mL/min Glucose Level 176 Calcium Level 8.9 Exam/Review of Systems Exam Vitals Vital Signs Date Temp Pulse Resp B/P (MAP) Pulse Ox O2 O2 Flow FiO2 Time Delivery Rate 11/21/18 71 16:21 11/21/18 4.0 16:00 11/21/18 98.0 18 125/60 100 15:23 (81) 11/21/18 40 13:00 11/21/18 BIPAP 07:12 Intake and Output 11/20/18 11/20/18 11/21/18 1515:00 23:00 07:00 IntakeIntake Total 360 ml 350 ml OutputOutput Total 900 ml 1600 ml BalanceBalance -540 ml -1250 ml Results Results 24hrs Laboratory Tests Test 11/20/18 21:07 11/21/18 07:47 11/21/18 09:45 11/21/18 11:48 Bedside Glucose 168 136 205 White Blood Count 5.9 Red Blood Count 2.73 L Hemoglobin 8.5 L Hematocrit 28.2 L Mean Corpuscular 103.3 H Volume Mean Corpuscular 31.1 Hemoglobin Mean Corpuscular 30.1 L Hemoglobin Concent Red Cell 17.5 H Distribution Width Platelet Count 327 Mean Platelet Volume 9.0 Immature 0.700 H Granulocytes % Neutrophils % 73.2 Lymphocytes % 17.5 Monocytes % 6.6 Eosinophils % 1.7 Basophils % 0.3 Nucleated Red Blood 0.0 Cells % Immature 0.040 H Granulocytes # Neutrophils # 4.3 Lymphocytes # 1.0 Monocytes # 0.4 Eosinophils # 0.1 Basophils # 0.0 Nucleated Red Blood 0.0 Cells # Sodium Level 141 Potassium Level 3.5 Chloride Level 102 Carbon Dioxide Level 31 Anion Gap 8 Blood Urea Nitrogen 48 #H Creatinine 1.79 H Est Glomerular Filtrat Rate mL/min Glucose Level 176 Calcium Level 8.9 Medications Medication Current Medications Amiodarone HCl (Cordarone) 200 mg BID PO Last administered on 11/21/18at 08:18; Admin Dose 200 MG; Start 11/17/18 at 21:00 Apixaban (Eliquis) 2.5 mg BID PO Last administered on 11/21/18at 08:17; Admin Dose 2.5 MG; Start 11/17/18 at 21:00 Atorvastatin Calcium (Lipitor) 20 mg QHS PO Last administered on 11/20/18at 21:01; Admin Dose 20 MG; Start 11/17/18 at 21:00 Pantoprazole (Protonix Tab) 40 mg DAILY@0600 PO Last administered on 11/21/18at 06:07; Admin Dose 40 MG; Start 11/18/18 at 06:00 Miscellaneous Information 145 mcg DAILY PO ; Start 11/18/18 at 09:00; Status UNV IV Flush (NS 3 ml) 3 ml PER PROTOCOL IV ; Start 11/17/18 at 17:00 Ondansetron HCl (Zofran Inj) 4 mg Q6H PRN IV NAUSEA/VOMITING Last administered on 11/18/18at 17:56; Admin Dose 4 MG; Start 11/17/18 at 17:00 Acetaminophen (Tylenol Tab) 650 mg Q6H PRN PO .PAIN 1-3 OR TEMP; Start 11/17/18 at 17:00 Acetaminophen/ Hydrocodone Bitart ([place] (5/325)) 1 tab Q6H PRN PO .MOD PAIN 4- 6; Start 11/17/18 at 17:00 Morphine Sulfate (morphine) 2 mg Q4H PRN IV .SEVERE PAIN 7-10; Start 11/17/18 at 17:00 Docusate Sodium (Colace) 100 mg BID PRN PO CONSTIPATION; Start 11/18/18 at 00:00 Miscellaneous Information (Pending Santyl Order For Wound Care) This patient braun... PRN PRN XX WOUND CARE; Start 11/18/18 at 00:30 Diagnostic Test (Pha) (Accu-Chek) 1 ea 02 XX Last administered on 11/19/18at 03:00; Admin Dose 1 EA; Start 11/19/18 at 02:00 Insulin Aspart (Novolog Insulin Pen) NOVOLOG *MILD* ALGORITHM WITH MEALS BEDTIME SC Last administered on 11/21/18at 11:52; Admin Dose 2 UNIT; Start 11/18/18 at 18:30 Levothyroxine Sodium (Synthroid) 12.5 mcg DAILY@06 PO Last administered on 11/21/18at 06:07; Admin Dose 12.5 MCG; Start 11/19/18 at 06:00 Miscellaneous Information 1 ea NOTE XX ; Start 11/18/18 at 18:00 Glucose (Glutose) 15 gm Q15M PRN PO DECREASED GLUCOSE; Start 11/18/18 at 18:00 Glucose (Glutose) 22.5 gm Q15M PRN PO DECREASED GLUCOSE; Start 11/18/18 at 18:00 Dextrose (D50w Syringe) 25 ml Q15M PRN IV DECREASED GLUCOSE; Start 11/18/18 at 18:00 Dextrose (D50w Syringe) 50 ml Q15M PRN IV DECREASED GLUCOSE; Start 11/18/18 at 18:00 Glucagon (Glucagen) 1 mg Q15M PRN IM DECREASED GLUCOSE; Start 11/18/18 at 18:00 Glucose (Glutose) 15 gm Q15M PRN BUCCAL DECREASED GLUCOSE; Start 11/18/18 at 18:00 Bisacodyl (Dulcolax Supp) 10 mg Q48H PRN [place] CONSTIPATION; Start 11/19/18 at 14:30 Bisacodyl (Dulcolax) 10 mg DAILY PRN PO CONSTIPATION; Start 11/19/18 at 14:30 Isosorbide Mononitrate (Imdur) 60 mg DAILY PO Last administered on 11/21/18at 08:18; Admin Dose 60 MG; Start 11/21/18 at 09:00 Senna/Docusate Sodium (Senokot-S) 2 tab AM PO Last administered on 11/21/18at 08:17; Admin Dose 2 TAB; Start 11/21/18 at 09:00 Miscellaneous Information (*Order Clarification Bulletin) MEDICATION REQUIRES CLARIFICATION: Q8H XX ; Start 11/21/18 at 14:00 Furosemide (Lasix) 20 mg DAILY PO Last administered on 11/21/18at 17:32; Admin Dose 20 MG; Start 11/21/18 at 16:30 Thiamine HCl (Vitamin B1) 100 mg DAILY PO ; Start 11/22/18 at 09:00 Polyethylene Glycol (Miralax) 17 gm BID PO Last administered on 11/21/18at 17 :32; Admin Dose 17 GM; Start 11/21/18 at 16:30 REJI GASTELUM MD Nov 21, 2018 17:42
[2018-11-21] MEDS: ATORVASTATIN 20 MG TAB PO SCH (21:44)
[2018-11-22] VITALS (13 sets, daily range): BP systolic 110–135; BP diastolic 53–63; PULSE 68–82; RESP 18–20
[2018-11-22] MEDS: ACCU-CHEK XX SCH (02:00)
[2018-11-22] MEDS: [UNRECOGNIZED DRUG - OTHER] XX SCH ×3 (06:00→22:00)
[2018-11-22] MEDS: LINACLOTIDE 145 MCG XX SCH ×3 (06:00→22:00)
[2018-11-22] MEDS: PANTOPRAZOLE (EC) 40 MG TAB PO SCH (06:38)
[2018-11-22] MEDS: LEVOTHYROXINE 25 MCG TAB PO SCH (06:38)
[2018-11-22] MEDS: POLYETHYLENE GLYCOL 17 GM PACKET PO SCH ×2 (08:20→20:43)
[2018-11-22] MEDS: AMIODARONE 200 MG TAB PO SCH ×2 (08:20→20:44)
[2018-11-22] MEDS: THIAMINE 100 MG TAB PO SCH (08:20)
[2018-11-22] MEDS: ISOSORBIDE MONONITRATE(SR)60 MG TAB PO SCH (08:20)
[2018-11-22] MEDS: APIXABAN 5 MG TABLET PO SCH ×2 (08:20→20:43)
[2018-11-22] MEDS: SENNA/DOCUSATE NA (8.6MG/50MG) TAB PO SCH (08:20)
[2018-11-22] MEDS: FUROSEMIDE 20 MG TAB PO SCH (08:21)
[2018-11-22] MEDS: INSULIN ASPART [NOVOLOG] 3 ML PEN SC SCH ×4 (09:08→20:47)
--- NOTE | 2018-11-22 17:17 | PN ---
Date/Time of Note Date/Time of Note DATE: 11/22/18 TIME: 17:16 Assessment/Plan VTE Prophylaxis Risk score (from Nsg)>0 risk: 8 SCD applied (from Nsg): Yes SCD contraindicated: low risk/ambulating Pharmacological prophylaxis: LMWH Lines/Catheters IV Catheter Type (from Nrsg): Saline Lock Urinary Cath still in place: Yes Reason Cath still needed: other (indicate) Assessment/Plan Hospital Course A/P 1. ACS; failed medical management, refused cabg. recommended hospice due to intermittent angina dyspnea and poor performance status. Out-of-town family and in town family to discuss options tomorrow and speak with [facility] if they agree for hospice care 2. Ftt; agrees to DNR. Likely home with home health safety tomorrow. BiPAP would probably be an [id number] expense. 3. P Afib 4. DM 5. Anemia 6. CKD; likely worse 7. HTN 8. Dl 9. 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 Nonadherence, refused to be repositioned and turned. Bed ulcer risk present. recommend hospice due to poor prognosis 12. Multiorgan failure 13. Constipation S: 11/19 fatigue possible pulmonary distress. Family requested BiPAP. Patient and f tonyy refused to have blood sugar eval and repositioning. Unfortunately cannot monitor and prevent further comorbidities. Recommend full hospice care. 11/20 chest pain dyspnea wants BiPAP. Refused end-of-life medications such as morphine. Wants to take her blood pressure medicines. I spoke with multiple family members yesterday and other family members today regarding the philosophy of hospice; In terms of trying to avoid prolonging period of suffering/treating multiple medical issues that will not change her outcome or morbidities. We will asked that they reconsider hospice. If not home with BiPAP over the weekend 11/21: No distress fairly stable. No arrhythmias. With this in mind I doubt that patient and family will agree with hospice tomorrow, especially that for the fact that she is not in severe pain. They are aware of relapses recurrences and progression of disease. However I think tomorrow the plan is home with home care. May need transportation home and BiPAP at their expense likely. However I do recommend hospice as the primary option. : Patient and family agree to go home with hospice tomorrow. Objective: Vital signs stable sinus PE no pallor/ jvd; some wasting? reg s1s2; no mrg ctab; nt bs+nt nd no rrg no edema/ [facility] Result Diagram: 11/21/18 0945 11/22/18 0550 Results 24hrs Laboratory Tests Test 11/21/18 17:43 11/21/18 21:42 11/22/18 05:50 11/22/18 08:13 Bedside Glucose 206 174 155 Sodium Level 142 Potassium Level 3.4 L Chloride Level 103 Carbon Dioxide Level 33 H Anion Gap 6 Blood Urea Nitrogen 39 H Creatinine 1.42 H Est Glomerular Filtrat Rate mL/min Glucose Level 122 # Calcium Level 8.9 Test 11/22/18 12:07 Bedside Glucose 178 Exam/Review of Systems Exam Vitals Vital Signs Date Temp Pulse Resp B/P (MAP) Pulse Ox O2 O2 Flow FiO2 Time Delivery Rate 11/22/18 72 16:47 11/22/18 98.4 18 111/53 100 15:37 (72) 11/22/18 3.0 13:54 11/22/18 Nasal 08:00 Cannula 11/22/18 40 04:50 Intake and Output 11/21/18 11/21/18 11/22/18 1515:00 23:00 07:00 IntakeIntake Total 850 ml 400 ml OutputOutput Total 400 ml 350 ml BalanceBalance 450 ml 50 ml Results Results 24hrs Laboratory Tests Test 11/21/18 17:43 11/21/18 21:42 11/22/18 05:50 11/22/18 08:13 Bedside Glucose 206 174 155 Sodium Level 142 Potassium Level 3.4 L Chloride Level 103 Carbon Dioxide Level 33 H Anion Gap 6 Blood Urea Nitrogen 39 H Creatinine 1.42 H Est Glomerular Filtrat Rate mL/min Glucose Level 122 # Calcium Level 8.9 Test 11/22/18 12:07 Bedside Glucose 178 Medications Medication Current Medications Amiodarone HCl (Cordarone) 200 mg BID PO Last administered on 11/22/18at 08:20; Admin Dose 200 MG; Start 11/17/18 at 21:00 Apixaban (Eliquis) 2.5 mg BID PO Last administered on 11/22/18 08:20; Admin Dose 2.5 MG; Start 11/17/18 at 21:00 Atorvastatin Calcium (Lipitor) 20 mg QHS PO Last administered on 11/21/18at 21:44; Admin Dose 20 MG; Start 11/17/18 at 21:00 Pantoprazole (Protonix Tab) 40 mg DAILY@0600 PO Last administered on 11/22/18at 06:38; Admin Dose 40 MG; Start 11/18/18 at 06:00 Miscellaneous Information 145 mcg DAILY PO ; Start 11/18/18 at 09:00; Status UNV IV Flush (NS 3 ml) 3 ml PER PROTOCOL IV ; Start 11/17/18 at 17:00 Ondansetron HCl (Zofran Inj) 4 mg Q6H PRN IV NAUSEA/VOMITING Last administered on 11/18/18at 17:56; Admin Dose 4 MG; Start 11/17/18 at 17:00 Acetaminophen (Tylenol Tab) 650 mg Q6H PRN PO .PAIN 1-3 OR TEMP; Start 11/17/18 at 17:00 Acetaminophen/ Hydrocodone Bitart (Temple (5/325)) 1 tab Q6H PRN PO .MOD PAIN 4- 6; Start 11/17/18 at 17:00 Morphine Sulfate (morphine) 2 mg Q4H PRN IV .SEVERE PAIN 7-10; Start 11/17/18 at 17:00 Docusate Sodium (Colace) 100 mg BID PRN PO CONSTIPATION; Start 11/18/18 at 00:00 Miscellaneous Information (Pending [facility] Order For Wound Care) This patient braun... PRN PRN XX WOUND CARE; Start 11/18/18 at 00:30 Diagnostic Test (Pha) (Accu-Chek) 1 ea 02 XX Last administered on 11/19/18at 03:00; Admin Dose 1 EA; Start 11/19/18 at 02:00 Insulin Aspart (Novolog Insulin Pen) NOVOLOG *MILD* ALGORITHM WITH MEALS BE DTIME SC Last administered on 11/22/18at 12:18; Admin Dose 1 UNIT; Start 11/18/18 at 18:30 Levothyroxine Sodium (Synthroid) 12.5 mcg DAILY@06 PO Last administered on 11/22/18at 06:38; Admin Dose 12.5 MCG; Start 11/19/18 at 06:00 Miscellaneous Information 1 ea NOTE XX ; Start 11/18/18 at 18:00 Glucose (Glutose) 15 gm Q15M PRN PO DECREASED GLUCOSE; Start 11/18/18 at 18:00 Glucose (Glutose) 22.5 gm Q15M PRN PO DECREASED GLUCOSE; Start 11/18/18 at 18:00 Dextrose (D50w Syringe) 25 ml Q15M PRN IV DECREASED GLUCOSE; Start 11/18/18 at 18:00 Dextrose (D50w Syringe) 50 ml Q15M PRN IV DECREASED GLUCOSE; Start 11/18/18 at 18:00 Glucagon (Glucagen) 1 mg Q15M PRN IM DECREASED GLUCOSE; Start 11/18/18 at 18:00 Glucose (Glutose) 15 gm Q15M PRN BUCCAL DECREASED GLUCOSE; Start 11/18/18 at 18:00 Bisacodyl (Dulcolax Supp) 10 mg Q48H PRN NC CONSTIPATION; Start 11/19/18 at 14:30 Bisacodyl (Dulcolax) 10 mg DAILY PRN PO CONSTIPATION; Start 11/19/18 at 14:30 Isosorbide Mononitrate (Imdur) 60 mg DAILY PO Last administered on 11/22/18 08:20; Admin Dose 60 MG; Start 11/21/18 at 09:00 Senna/Docusate Sodium (Senokot-S) 2 tab AM PO Last administered on 11/22/18 08:20; Admin Dose 2 TAB; Start 11/21/18 at 09:00 Miscellaneous Information (*Order Clarification Bulletin) MEDICATION REQUIRES CLARIFICATION: Q8H XX Last administered on 11/22/18 14:00; Admin Dose 1 EA; Start 11/21/18 at 14:00 Furosemide (Lasix) 20 mg DAILY PO Last administered on 11/22/18 08:21; Admin Dose 20 MG; Start 11/21/18 at 16:30 Thiamine HCl (Vitamin B1) 100 mg DAILY PO Last administered on 11/22/18 08:20; Admin Dose 100 MG; Start 11/22/18 at 09:00 Polyethylene Glycol (Miralax) 17 gm BID PO Last administered on 11/22/18 08:20; Admin Dose 17 GM; Start 11/21/18 at 16:30 REJI GASTELUM MD Nov 22, 2018 17:17
--- NOTE | 2018-11-22 17:20 | PDOCDIS ---
Discharge Instructions CONDITION [id number] Patient Condition: [id number] Fair HOME CARE INSTRUCTIONS: [id number] Diet Instructions: [id number] Low Fat /Cholesterol ACTIVITY: [id number] Activity Restrictions: [id number] Slowly Increase Activity FOLLOW UP/APPOINTMENTS Follow-up Plan [facility] to follow REIJ GASTELUM MD Nov 22, 2018 17:20
[2018-11-22] MEDS ORDERED: ACET325T33 PO (17:22)
[2018-11-22] MEDS ORDERED: ISOS60TA PO (17:22)
[2018-11-22] MEDS ORDERED: LEVO25TA6 PO (17:22)
[2018-11-22] MEDS ORDERED: THIA100T56 PO (17:22)
[2018-11-22] MEDS ORDERED: POLY17PO6 PO (17:22)
[2018-11-22] MEDS: ATORVASTATIN 20 MG TAB PO SCH (20:43)
[2018-11-23] MEDS: ACCU-CHEK XX SCH (02:00)
[2018-11-23 04:00] VITALS: BP 121/58; PULSE 71; RESP 18
[2018-11-23] MEDS: [UNRECOGNIZED DRUG - OTHER] XX SCH ×2 (06:00→14:05)
[2018-11-23] MEDS: LINACLOTIDE 145 MCG XX SCH ×2 (06:00→14:05)
[2018-11-23] MEDS: LEVOTHYROXINE 25 MCG TAB PO SCH (06:36)
[2018-11-23] MEDS: PANTOPRAZOLE (EC) 40 MG TAB PO SCH (06:38)
[2018-11-23] MEDS: INSULIN ASPART [NOVOLOG] 3 ML PEN SC SCH ×2 (07:43→12:49)
[2018-11-23 07:50] VITALS: BP 132/60; PULSE 75; RESP 20
[2018-11-23] MEDS: POLYETHYLENE GLYCOL 17 GM PACKET PO SCH (08:02)
[2018-11-23] MEDS: THIAMINE 100 MG TAB PO SCH (08:02)
[2018-11-23] MEDS: AMIODARONE 200 MG TAB PO SCH (08:02)
[2018-11-23] MEDS: SENNA/DOCUSATE NA (8.6MG/50MG) TAB PO SCH (08:02)
[2018-11-23] MEDS: APIXABAN 5 MG TABLET PO SCH (08:02)
[2018-11-23] MEDS: FUROSEMIDE 20 MG TAB PO SCH (08:03)
[2018-11-23] MEDS: ISOSORBIDE MONONITRATE(SR)60 MG TAB PO SCH (08:03)
[2018-11-23 11:49] VITALS: BP 130/70; PULSE 80; RESP 19
--- NOTE | 2018-11-23 13:35 | DS ---
Date/Time of Note Date/Time of Note DATE: 11/23/18 TIME: 13:31 Discharge Summary Admission/Discharge Info Admit Date/Time Nov 17, 2018 at 15:38 Discharge Date/Time Patient Condition: Guarded Consults [facility] Procedures Chest x-ray labs Hx of Present Illness 3-year-old female admitted with shortness of breath chest pain Hospital Course Hospitalist coverage/hospital course Admitted with recurrent chest pain dyspnea. Refused cardiac cath. Medical management has failed and refused surgical eval. Status guarded. Recommend hospice. After extensive conversations, the family & patient are in agreement to go home with hospice. Met with Safia yesterday and being transported home later today. She is DNR. A/P 1. ACS; failed medical management, refused cabg. recommended hospice due to angina dyspnea and poor performance status. 2. Ftt; agrees to DNR. BiPAP would probably be an [id number] expense. 3. P Afib 4. DM 5. Anemia 6. CKD 7. HTN 8. Dl 9. 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 Nonadherence, refused to be repositioned and turned. Bed ulcer risk present. recommend hospice due to poor prognosis 12. Multiorgan failure 13. Constipation 14. Clinical vs subclinical hypothyroidism? S: 11/19 fatigue possible pulmonary distress. Family requested BiPAP. Patient and family refused to have blood sugar eval and repositioning. Unfortunately cannot monitor and prevent further comorbidities. Recommend full hospice care. 11/20 chest pain dyspnea wants BiPAP. Refused end-of-life medications such as morphine. Wants to take her blood pressure medicines. I spoke with multiple family members yesterday and other family members today regarding the philosophy of hospice; In terms of trying to avoid prolonging period of suffering/treating multiple medical issues that will not change her outcome or morbidities. We will asked that they reconsider hospice. If not home with BiPAP over the weekend 11/21: No distress fairly stable. No arrhythmias. With this in mind I doubt that patient and family will agree with hospice tomorrow, especially that for the fact that she is not in severe pain. They are aware of relapses recurrences and progression of disease. However I think tomorrow the plan is home with home care. May need transportation home and BiPAP at their expense likely. However I do recommend hospice as the primary option. : Patient and family agree to go home with hospice tomorrow. 11/23: No events O: Vital signs stable sinus PE no pallor/ jvd; some wasting? reg s1s2; no mrg ctab; nt bs+nt nd no rrg no edema/ [facility] Home Meds Active Scripts Thiamine* (Vitamin B-1*) 100 Mg Tablet, 100 MG PO DAILY for 30 Days, #30 TAB Prov:REJI GASTELUM MD 11/22/18 Levothyroxine Sodium* (Levothyroxine Sodium*) 25 Mcg Tablet, 12.5 MCG PO DAILY@06 for 10 Days, #14 TAB Prov:REJI GASTELUM MD 11/22/18 Polyethylene Glycol* (Miralax*) 17 Gm Powd.pack, 17 GM PO BID for 5 Days Prov:REJI GASTELUM MD 11/22/18 Acetaminophen* (Tylenol*) 325 Mg Tablet, 650 MG PO Q6H PRN for .PAIN 1-3 OR TEMP for 10 Days, #10 TAB Prov:REJI GASTELUM MD 11/22/18 Isosorbide Mononitrate* (Isosorbide Mononitrate*) 60 Mg Tab.er.24h, 60 MG PO DAILY for 10 Days, #10 Prov:REJI GASTELUM MD 11/22/18 Reported Medications Furosemide* (Lasix*) 20 Mg Tablet, 20 MG PO DAILY, TAB 11/17/18 Hydralazine Hcl* (Hydralazine Hcl*) 100 Mg Tablet, 100 MG PO Q12 PRN for ELEVATED BLOOD PRESSURE, #90 TAB 11/17/18 Pantoprazole* (Protonix*) 40 Mg Tablet.dr, 40 MG PO DAILY, TAB 11/17/18 Ondansetron Hcl* (Zofran*) 4 Mg Tablet, 4 MG PO Q8 PRN for NAUSEA AND OR VOMITING, TAB 11/17/18 Sitagliptin* (Januvia*) 100 Mg Tablet, 100 MG PO DAILY, #30 TAB 11/17/18 Atorvastatin Calcium* (Atorvastatin Calcium*) 20 Mg Tablet, 20 MG PO QHS, #30 TAB 11/17/18 Apixaban* (Eliquis*) 2.5 Mg Tablet, 2.5 MG PO BID, TAB 11/17/18 Linaclotide (LINZESS) 145 Mcg Capsule, 145 MCG PO DAILY, #30 CAP 11/17/18 Amiodarone Hcl* (Amiodarone Hcl*) 200 Mg Tablet, 200 MG PO BID, #60 TAB 11/17/18 Discontinued Reported Medications Isosorbide Mononitrate* (Isosorbide Mononitrate*) 30 Mg Tab.er.24h, 30 MG PO DAILY, TAB 11/17/18 Folic Acid* (Folic Acid*) 1 Mg Tablet, 1 MG PO DAILY, TAB 09/23/18 Aspirin* (Aspirin* EC) 81 Mg Tablet.dr, 81 MG PO DAILY, TAB 09/23/18 Discontinued Scripts Insulin Aspart* (Novolog Insulin Pen*) 100 Unit/Ml Soln, 0 UNIT SC AC MEALS AND BEDTIME for 30 Days Prov:ALEX HYLTON 09/26/18 Spironolactone* (Aldactone*) 25 Mg Tablet, 25 MG PO DAILY for 30 Days, TAB Prov:ALEX HYLTON 09/26/18 Metoprolol Succinate* (Toprol XL*) 25 Mg Tab.sr.24h, 50 MG PO BID for 30 Days Prov:ALEX HYLTNO 09/26/18 Atorvastatin* (Atorvastatin*) 80 Mg Tablet, 80 MG PO HS for 30 Days, TAB Prov:ALEX HYLTON 09/26/18 Amiodarone Hcl* (Amiodarone Hcl*) 200 Mg Tablet, 200 MG PO BID for 30 Days, TAB Prov:ALEX HYLTON 09/26/18 Apixaban* (Eliquis*) 5 Mg Tablet, 5 MG PO BID for 30 Days, TAB Prov:ALEX HYLTON 09/26/18 Follow-up Plan [facility] to follow Primary Care Provider Sukhi Barnes MD Time spent on discharge: < 30 minutes Pending Labs Laboratory Tests Test 11/22/18 17:16 11/22/18 20:42 11/23/18 06:40 11/23/18 07:42 Bedside 141 186 161 133 Glucose mg/dL (70-220) mg/dL (70-220) mg/dL (70-220) mg/dL (70-220) Test 11/23/18 12:36 Bedside 167 Glucose mg/dL (70-220) REJI GASTELUM MD Nov 23, 2018 13:35
[2018-11-23 15:52] VITALS: BP 126/60; PULSE 78; RESP 18
== END 2018-11-23 17:49 | disposition hospice, home (50) | DRG 311 ==
LOC: E/R 13:35 → 6WM 15:38
PROVIDERS: ADMIT Internal Medicine; ATTEND Internal Medicine
PROC: 5A09457 Assistance with Respiratory Ventilation, 24-96 Consecutive Hours, Continuous Positive Airway Pressure (ICD-10-PCS; principal; 2018-11-18)
DX: I24.9 Acute ischemic heart disease, unspecified (principal); I13.0 Hypertensive heart and chronic kidney disease with heart failure and stage 1 through stage 4 chronic kidney disease, or unspecified chronic kidney disease; I25.119 Atherosclerotic heart disease of native coronary artery with unspecified angina pectoris; N18.9 Chronic kidney disease, unspecified; I48.0 Paroxysmal atrial fibrillation; D64.9 Anemia, unspecified; E78.5 Hyperlipidemia, unspecified; Z66 Do not resuscitate; I50.9 Heart failure, unspecified; Z51.5 Encounter for palliative care; I25.2 Old myocardial infarction; I48.2 Chronic atrial fibrillation; I08.0 Rheumatic disorders of both mitral and aortic valves; R62.7 Adult failure to thrive; K59.00 Constipation, unspecified; E03.9 Hypothyroidism, unspecified; Z53.29 Procedure and treatment not carried out because of patient's decision for other reasons
CPT/HCPCS: 36415; 71045; 80048; 80053; 80061; 82962; 83036; 83690; 83735; 83880; 84100; 84443; 84484; 85025; 85610; 85730; 93005; 93970; 94660; 96374; J1815; J1940; J2405